=== PATIENT | male | born 1940 | race Caucasian/White ===

== ENCOUNTER → 2017-11-24 08:59 | Outpatient (CLI) | payer MEDICARE, SELFPAY ==
[2017-11-24 11:01] LABS: ALB/GLOB Ratio 1.1 RATIO (0.9-2.4); AST(SGOT) 65 U/L (15-37); Alanine Aminotransfer ALT/SGPT 63 U/L (16-61); Albumin, Serum 3.8 g/dL (3.2-5.0); Alkaline Phosphatase 43 U/L (45-117); Anion Gap 9 (5-15); BUN 23 mg/dL (7-18); BUN/Creat Ratio 16.4 RATIO (10-20); Calcium,Total 9.1 mg/dL (8.5-10.1); Chloride 106 mmol/L (98-107); EST Glomerular Filtration Rate 52 mL/min (>60); Est Glom Filt Rate - Afr Amer 63 mL/min (>60); Globulin 3.4 g/dL (2.2-4.2); Glucose 118 mg/dL (74-106); Potassium 3.9 mmol/L (3.5-5.1); Protein, Total 7.2 g/dL (6.4-8.2); Sodium Level 141 mmol/L (136-145); Uric Acid 7.3 mg/dL (3.5-7.2)
== END ==
PROVIDERS: Family Provider Family Medicine; PCP Family Medicine; Visit Provider Family Medicine
DX: N28.9 Disorder of kidney and ureter, unspecified (principal); M10.9 Gout, unspecified
CPT/HCPCS: 36415; 80053; 84550

== ENCOUNTER → 2017-12-26 14:32 | Outpatient (CLI) | payer MEDICARE, SELFPAY | PROVIDERS: Family Provider Family Medicine; PCP Family Medicine; Visit Provider Family Medicine | DX: M10.9 Gout, unspecified (principal) | CPT/HCPCS: 36415; 84550 ==

== ENCOUNTER → 2018-01-23 14:05 | Outpatient (CLI) | payer MEDICARE, SELFPAY ==
--- NOTE | 2018-01-23 14:05 | DT_ITS ---
This patient was seen during an EMR downtime January 16, 2018 - January 23, 2018. This patient may have a combination of paper and electronic documentation or all paper documentation. All documentation is viewable within the e-chart portion of [facility] for each patient visit.
[2018-01-23 16:05] LABS: ALB/GLOB Ratio 1.1 RATIO (0.9-2.4); AST(SGOT) 42 U/L (15-37); Alanine Aminotransfer ALT/SGPT 53 U/L (16-61); Albumin, Serum 3.8 g/dL (3.2-5.0); Alkaline Phosphatase 47 U/L (45-117); Anion Gap 8 (5-15); BUN 22 mg/dL (7-18); BUN/Creat Ratio 15.7 RATIO (10-20); CPK Total, Creatine Kinase 253 U/L (39-308); Calcium,Total 9.2 mg/dL (8.5-10.1); Chloride 108 mmol/L (98-107); EST Glomerular Filtration Rate 52 mL/min (>60); Est Glom Filt Rate - Afr Amer 63 mL/min (>60); Globulin 3.4 g/dL (2.2-4.2); Glucose 103 mg/dL (74-106); Protein, Total 7.2 g/dL (6.4-8.2); Sodium Level 141 mmol/L (136-145)
== END ==
PROVIDERS: Family Provider Family Medicine; PCP Family Medicine; Visit Provider Internal Medicine Cardiovascular Disease
DX: E78.2 Mixed hyperlipidemia (principal)
CPT/HCPCS: 36415; 80053; 82550

== ENCOUNTER 2018-07-20 12:00 | Outpatient (RCR) | payer MEDICARE, SELFPAY ==
--- NOTE | 2018-06-26 13:29 | HP.PTEVAL ---
Patient's Visit Information KEN ALFRED is a 77 year old M referred to Physical Therapy by LYNDSEY BAEZ with a diagnosis of LOW BACK PAIN. Date of Evaluation: 06/26/18 Physical Therapist: Casey Scott PT, - Visit Plan Frequency: 2x /Week Duration: 6 Weeks Plan: LUMBAR FLEXION,LE FLEXABLITY,DLS ,POSTURAL EX'S,MODALTIES - Subjective Subjective: This 77 by y/o male prsents to pnhysical therapy with low back pain. Patient has had lumbar pain Jun 09. Patient see [facility] for back and did x-rays of hip . Patient has symptoms have been worse several years . Synmptoms worse after sitting,driving to get up,walking,standing. Symptoms better with sitting and resting. C/O parathesia right lateral leg. Coughing/sneezing -. Bowel/bladder -. Patient sleeping okay at night. Patient symptoms affect QOL and function No prior prior treatmernt. SOCIAL: . VOCATION: retired - Pain Right Back Pain Intensity (Out of 10): 8 Pain Intensity Range: 10 - Objective POSTURE: mild foward posture. GAIT: mild foward posture antalgic gait right side. NEURO: lateral thigh parathesia/tingling,reflexes L3-4,L4-5,L5-S1. SYMMTRIES:align. MMT: quads/hams 4/5,hip flexion 4-/5,ankle 5/5. LUMBAR ROM: flexion mod loss ,extension severe loss,side glides min/mod loss. FEXABLITY: hams mod tight - Special Tests L/S Slump test left side: Negative L/S Slump test right side: Negative L/S Left Straight Leg Raise: Negative L/S Right Straight Leg Raise: Negative Lumbar Standing: Flexion - Mechanical Response: No effect Lumbar Standing: Flexion - Symptoms During Testing: No effect Lumbar Standing: Flexion - Symptoms After Testing: No effect Lumbar Standing: Extension - Mechanical Response: No effect Lumbar Standing: Extension - Symptoms During Testing: No effect Lumbar Standing: Extension - Symptoms After Testing: No effect Lumbar Standing: Right Side Glides - Mechanical Response: No effect Lumbar Standing: Right Side [place] - Symptoms During Testing: No effect Lumbar Standing: Right Side [place] - Symptoms After Testing: No effect Lumbar Standing: Left Side [place] - Mechanical Response: No effect Lumbar Standing: Left Side [place] - Symptoms During Testing: No effect Lumbar Standing: Left Side [place] - Symptoms After Testing: No effect R Hip Scour: Negative R Hip Christo - IT Band: Negative - Goals Goal 1:: Independant with HEP Goal Time Frame: 4-6 Weeks Goal 2:: Indeependant with posture/body Goal Time Frame: 4-6 Weeks Goal 3:: Decrease lumbar pain by 50% or greater to improved function with gait Goal Time Frame: 4-6 Weeks Goal 4:: Patient improve lumbar ROM for function of recovery Goal Time Frame: 4-6 Weeks Goal 5:: Patient improve KONSTANTIN back owestry by 5 points to improve QOL. Goal Time Frame: 4-6 Weeks - Rehabilitation Potential Physical Therapy Diagnosis: This patient has lumbar pain with decrease lumbar ROM ,pain weakness impairs function gait thus benifit from skilled PT . Rehabilitation Potential: Good - Anticipated Interventions Patient/Client Instruction: Educate patient on: Condition, Plan of Care For the Purpose of:: To decrease pain, To increase ROM, To improve muscle performance and motor function, To increase tolerance to activity/condition/position, To improve ability of physical actions for home/community/work/leisure, To improve health of tissue, To decrease soft tissue restriction, To increase flexibility/ROM, To improve ability to perform tasks related to life management Therapeutic Exercise to Include: Strength training, Body mechanics, Postural training, Flexibilty training, Dynamic Lumbar Stabilization For the Purpose of:: To decrease pain, To increase ROM, To improve muscle performance and motor function, To increase tolerance to activity/condition/position, To improve performance and independence with ADL's, To improve ability of physical actions for home/community/work/leisure, To improve health of tissue, To decrease soft tissue restriction, To increase flexibility/ROM, To improve ability to perform tasks related to life management TENS: Yes IF ES: Yes Thermo therapy (hot pack): Yes Ultrasound (thermal/non thermal): Yes For the Purpose of:: To decrease pain, To increase ROM, To improve nutrient delivery to tissue, To increase oxygenation perfusion, To improve health of tissue, To decrease soft tissue restriction Thank you for the opportunity to evaluate your patient. For Medicare and Medicare HMO plans, please review the plan of care and approve it. It will need to be FAXED BACK to us at [phone] for Medicare purposes. Please let me know if there are questions or concerns regarding this plan of care. Physician Signature: Date:
--- NOTE | 2018-11-16 09:54 | HP.PTDCNRP_ITS ---
HP - Discharge Summary (1) - Patient Information KEN ALFRED was seen in my office for initial evaluation on 06/26/18. The following Plan of Care was established for this patient: Initial Frequency: 2x /Week Initial Duration: 6 Weeks - Anticipated Interventions Patient/Client Instruction: Educate patient on: Condition, Plan of Care For the Purpose of:: To decrease pain, To increase ROM, To improve muscle perfo rmance and motor function, To increase tolerance to activity/condition/position, To improve ability of physical actions for home/community/work/leisure, To improve health of tissue, To decrease soft tissue restriction, To increase flexibility/ROM, To improve ability to perform tasks related to life management Therapeutic Exercise to Include: Strength training, Body mechanics, Postural training, Flexibilty training, Dynamic Lumbar Stabilization For the Purpose of:: To decrease pain, To increase ROM, To improve muscle performance and motor function, To increase tolerance to activity/condition/position, To improve performance and independence with ADL's, To improve ability of physical actions for home/community/work/leisure, To improve health of tissue, To decrease soft tissue restriction, To increase flexibility/ROM, To improve ability to perform tasks related to life management TENS: Yes IF ES: Yes Thermo therapy (hot pack): Yes Ultrasound (thermal/non thermal): Yes For the Purpose of:: To decrease pain, To increase ROM, To improve nutrient delivery to tissue, To increase oxygenation perfusion, To improve health of tissue, To decrease soft tissue restriction This patient was last seen in our office 07/20/18. Pertinent comments regarding their Physical therapy will appear below: Patient seen for PT for lumbar pain with tx focusing on lumbar traction ,DLS ,postural ex's. Patient had postive response with PT interventions but then had MRI. At this point I will be discontinuing this patient from physical therapy. I would be happy to see this patient again in the future if found appropriate by the physician. Thank you! Casey Scott, PT, Cert MDT, OCS
== END 2018-07-20 19:00 | disposition home or self-care (01) ==
LOC: PT 12:00
PROVIDERS: Family Provider Family Medicine; PCP Family Medicine
DX: M54.5 Low back pain (principal)
CPT/HCPCS: 97012; 97110; 97162

== ENCOUNTER → 2018-08-09 12:01 | Outpatient (CLI) | payer MEDICARE, SELFPAY ==
--- NOTE | 2018-08-09 12:35 | MRI_ITS ---
STUDY: MRI LUMBAR SPINE WITHOUT CONTRAST REASON FOR EXAM: Male, 78 years old. Right leg pain and hip pain. Radiculopathy. TECHNIQUE: Standardized fat and water weighted pulse sequences were obtained in the sagittal and axial planes. COMPARISON: X-ray March 25, 2014 FINDINGS: T12-L1: Normal endplates. Normal disc height, hydration and morphology. Normal bilateral facet joints. Normal central canal and bilateral lateral recesses. Normal bilateral intervertebral neural foramina. Normal lumbar lordosis. There is a mild levoscoliosis of the lumbar spine. Normal conus medullaris that terminates at the L1 level. There is no acute fracture. L1-2: Normal endplates. Normal disc height, hydration and morphology. Normal bilateral facet joints. Normal central canal and bilateral lateral recesses. Normal bilateral intervertebral neural foramina. L2-3: Disc bulge with mild spurring. Mild spurring of the bilateral facet joints. Normal central canal and bilateral lateral recesses. Normal bilateral intervertebral neural foramina. L3-4: Disc space narrowing. Disc bulge and spurring. Facet spurring and ligamentum flavum hypertrophy. Mild canal stenosis. Right greater than left foraminal narrowing L4-5: Disc space narrowing. Disc bulge and spurring with left foraminal disc protrusion, series 5 image 8/25. Facet spurring. Canal borderline in size. Left foraminal narrowing L5-S1: Disc space narrowing. Disc bulge and spurring. Facet spurring. Left foraminal narrowing. Normal visualized sacral ala. Normal visualized paraspinous soft tissue structures. MRI/Spine Lumbar (Routine) IMPRESSION: Multilevel degenerative changes, as described above. Electronically Signed: Guero Kelly MD at 23:39 EST , Service support ,
== END ==
PROVIDERS: Family Provider Family Medicine; PCP Family Medicine
DX: M54.16 Radiculopathy, lumbar region (principal)
CPT/HCPCS: 72148

== ENCOUNTER → 2018-09-18 09:51 | Outpatient (CLI) | payer MEDICARE, SELFPAY ==
[2018-09-18 12:42] LABS: Hematocrit 40.7 % (40-54); Hemoglobin 13.2 g/dl (13.0-16.5); Mean Corp Hgb Conc 32.4 g/gl (32-36); Mean Corpuscular Hgb 31.4 pg (27.0-32.0); Mean Corpuscular Volume 96.9 fL (80-94); Mean Platelet Vol. 9.8 fl (6.2-12.0); Platelet Count 234 K/mm3 (150-450); RBC Distribution Width CV 13.2 % (11.6-14.6); RBC Distribution Width SD 45.6 fl (35.1-43.9); White Blood Count 6.6 K/mm3 (4.4-11.0)
[2018-09-18 12:44] LABS: Scan Indicated on CBC? Y/N NO
[2018-09-18 13:10] LABS: ALB/GLOB Ratio 0.9 RATIO (0.9-2.4); AST(SGOT) 53 U/L (15-37); Alanine Aminotransfer ALT/SGPT 54 U/L (16-61); Albumin, Serum 3.6 g/dL (3.2-5.0); Alkaline Phosphatase 64 U/L (45-117); Anion Gap 8 (5-15); BUN 21 mg/dL (7-18); BUN/Creat Ratio 14.7 RATIO (10-20); Chloride 104 mmol/L (98-107); Cholesterol 127 mg/dL (200); Creatinine, Serum 1.43 mg/dL (0.70-1.30); EST Glomerular Filtration Rate 51 mL/min (>60); Est Glom Filt Rate - Afr Amer 62 mL/min (>60); Globulin 3.8 g/dL (2.2-4.2); Glucose 128 mg/dL (74-106); High Density Lipoprotein 34 mg/dL; Magnesium 2.1 mg/dL (1.6-2.6); Potassium 4.3 mmol/L (3.5-5.1); Protein, Total 7.4 g/dL (6.4-8.2); Sodium Level 139 mmol/L (136-145); Thyroid Stim Hormone (TSH) 3.35 uIU/mL (0.358-3.74); Triglycerides 180 mg/dL; Very Low Density Lipoprotein 36 mg/dL (5-40)
== END ==
PROVIDERS: Family Provider Family Medicine; PCP Family Medicine; Visit Provider Family Medicine
DX: I10 Essential (primary) hypertension (principal); M10.9 Gout, unspecified; R25.1 Tremor, unspecified; R13.10 Dysphagia, unspecified
CPT/HCPCS: 36415; 80053; 80061; 83735; 84443; 85027

== ENCOUNTER → 2018-10-23 14:23 | Outpatient (CLI) | payer MEDICARE, OTHER, SELFPAY ==
--- NOTE | 2018-10-23 14:47 | VDLE_ITS ---
Reason For Study: S/P lumbar surgery RIGHT LEFT GSV is normal. CFV is compressible, spontaneous, phasic, CFV is compressible, spontaneous, phasic, competent, and demonstrates normal competent and demonstrates normal augmentation. augmentation. FV is compressible, spontaneous, phasic, competent and demonstrates normal augmentation. POP V is compressible, spontaneous, phasic, competent and demonstrates normal augmentation. T/P Trunk is compressible. PTV is compressible. RT PerV is compressible. Procedure Exam performed in department. The study was technically difficult. A preliminary report was called and/or faxed to Dr. Malhotra @ [phone] @ 3:15 pm. Interpretation Summary Deep veins of the right lower extremity are patent and compressible segmentally. There is no evidence of right lower extremity deep vein thrombosis. Valvular competence appears intact within the proximal deep venous system on the right . The right greater saphenous vein appears patent and compressible segmentally. Ordering Physician: Davey Malhotra Referring Physician: García Trevino Performed By: Nadia Ortiz, JOHN, RVT
== END ==
PROVIDERS: Family Provider Family Medicine; PCP Family Medicine; Referring Provider Orthopaedic Surgery Orthopaedic Surgery of the Spine; Visit Provider Orthopaedic Surgery Orthopaedic Surgery of the Spine
DX: M79.604 Pain in right leg (principal); Z98.890 Other specified postprocedural states
CPT/HCPCS: 93971

== ENCOUNTER → 2018-10-25 12:34 | Outpatient (CLI) | payer MEDICARE, OTHER, SELFPAY ==
[2018-10-25 14:52] LABS: Absolute Neutrophil Count 3.7 X10^3/uL (2.0-7.7); Basophil# 0.04 X10^3/uL; Basophil% 0.6 % (0-1); Eosinophil# 0.22 X10^3/uL; Eosinophils% 3.2 % (0-5); Hematocrit 40.3 % (40-54); Lymphocyte % 30.6 % (19-41); Mean Corp Hgb Conc 32.3 g/gl (32-36); Mean Corpuscular Hgb 31.1 pg (27.0-32.0); Mean Corpuscular Volume 96.4 fL (80-94); Mean Platelet Vol. 9.8 fl (6.2-12.0); Monocyte# 0.74 X10^3/uL; Monocyte% 10.8 % (0-10); Neutrophil # 3.73 X10^3/uL (2.7-7.7); Neutrophil % 54.4 % (47-70); Platelet Count 203 K/mm3 (150-450); RBC Distribution Width CV 13.1 % (11.6-14.6); RBC Distribution Width SD 45.4 fl (35.1-43.9); Red Blood Count 4.18 M/mm3 (4.6-6.2); White Blood Count 6.9 K/mm3 (4.4-11.0)
[2018-10-25 14:56] LABS: POSITIVE COUNT NO; POSITIVE DIFFERENTIAL NO; POSITIVE MORPHOLOGY NO
[2018-10-25 15:11] LABS: ALB/GLOB Ratio 1.1 RATIO (0.9-2.4); AST(SGOT) 41 U/L (15-37); Alanine Aminotransfer ALT/SGPT 43 U/L (16-61); Albumin, Serum 3.9 g/dL (3.2-5.0); Alkaline Phosphatase 55 U/L (45-117); Anion Gap 7 (5-15); BUN 22 mg/dL (7-18); BUN/Creat Ratio 16.9 RATIO (10-20); Chloride 105 mmol/L (98-107); EST Glomerular Filtration Rate 57 mL/min (>60); Est Glom Filt Rate - Afr Amer 69 mL/min (>60); Globulin 3.4 g/dL (2.2-4.2); Glucose 108 mg/dL (74-106); Potassium 4.2 mmol/L (3.5-5.1); Protein, Total 7.3 g/dL (6.4-8.2); Sodium Level 141 mmol/L (136-145); Thyroid Stim Hormone (TSH) 2.46 uIU/mL (0.358-3.74)
== END ==
PROVIDERS: Family Provider Family Medicine; PCP Family Medicine; Referring Provider Family Medicine; Visit Provider Family Medicine
DX: R60.0 Localized edema (principal)
CPT/HCPCS: 36415; 80053; 84443; 85025

== ENCOUNTER → 2018-10-27 16:24 | Outpatient (CLI) | payer MEDICARE, OTHER, SELFPAY ==
--- NOTE | 2018-10-27 16:27 | RAD_ITS ---
STUDY: X-RAY - RIGHT KNEE REASON FOR EXAM: Male, 78 years old. Right leg edema TECHNIQUE: 3 view(s) of the knee. COMPARISON: None. FINDINGS: Normal visualized distal femur. Normal visualized proximal tibia and fibula. Normal proximal tibiofibular articulation. There is mild joint space narrowing of the medial knee compartment. Normal lateral femorotibial compartment. Normal patellofemoral articulation. The soft tissue structures are unremarkable. RAD/Knee 3 Views IMPRESSION: Mild joint space narrowing of the medial knee compartment. Electronically Signed: Joel Grajeda MD at 23:58 EDT , Service support ,
== END ==
PROVIDERS: Family Provider Family Medicine; PCP Family Medicine; Referring Provider Family Medicine; Visit Provider Family Medicine
DX: R60.0 Localized edema (principal)
CPT/HCPCS: 73562

== ENCOUNTER → 2018-11-06 05:37 | Outpatient (CLI) | payer MEDICARE, OTHER, SELFPAY ==
--- NOTE | 2018-11-06 06:14 | CT_ITS ---
STUDY: CT RIGHT LOWER EXTREMITY WITH CONTRAST REASON FOR EXAM: Male, 78 years old. Swelling of the right leg for several months. No history of DVT or circulatory issues. RADIATION DOSAGE (If Supplied By Facility): CTDIvol = ( 16.75 ) mGy, DLP = ( 1646.24 ) mGycm TECHNIQUE: Transaxial CT imaging of the right lower extremity was performed post contrast administration. The examination was performed with intravenous administration of Isovue 300 100 IV. Sagittal and coronal images were reconstructed. Individualized dose optimization techniques were used for this CT. COMPARISON: Right knee, October 27, 2018. FINDINGS: The visualized right pelvis appears intact and without evidence of fracture or destructive pathology. There is mild narrowing of the hip joint. The femur is intact without abnormality. There are degenerative changes of the knee. There is a tiny sclerotic focus in the posterior femoral condyle. Normal tibia and fibula. The ankle is intact. Normal visualized talus calcaneus and tarsals. The subtalar and tarsal articulations are grossly normal. The musculature of the hip side calf and hindfoot appear grossly normal. The subcutaneous tissues are grossly normal. There is atherosclerotic changes of the common femoral artery without stenosis. There is atherosclerotic changes of the superficial femoral artery without stenosis. Atherosclerotic changes without stenosis continuing to the popliteal artery. There is atherosclerotic changes of the calf vessels most marked in the tibioperitoneal trunk however no significant stenosis is noted. There is marked decrease in size of the anterior tibial artery in the mid leg although it can be followed into the foot. The posterior tibial and peroneal arteries are patent into the foot. There is no obvious venous abnormalities or varices. There is no enhancing abnormality. CT/Extremity Lower WITH Contrast IMPRESSION: 1. Degenerative changes of the hip knee and hindfoot without evidence of fracture, dislocation or destructive osseous pathology. 2. Atherosclerotic changes of the arterial system of the right lower extremity without significant stenosis. There is mild narrowing of the distal anterior tibial artery, which remains patent. 3. No evidence of muscular or soft tissue abnormality. Electronically Signed: Volodymyr Sierra DO at 8:54 EDT Tel [phone], Service support ,
== END ==
PROVIDERS: Family Provider Family Medicine; PCP Family Medicine; Referring Provider Nurse Practitioner Adult Health; Visit Provider Nurse Practitioner Adult Health
DX: M79.89 Other specified soft tissue disorders (principal)
CPT/HCPCS: 73701; Q9967

== ENCOUNTER → 2018-12-08 | Outpatient (CLI) | payer MEDICARE, OTHER, SELFPAY ==
--- NOTE | 2018-12-08 08:36 | BI_ITS ---
MAMMOGRAPHY - BILATERAL DIAGNOSTIC REASON FOR EXAM: Male, 78 years old. Lump PERTINENT HISTORY: Non-contributory. TECHNIQUE: Digital examination. Mediolateral oblique (MLO) and craniocaudad (CC) views of both breasts were obtained. CAD: CAD was performed on this study. COMPARISON: 2011 FINDINGS: Breast Composition: The breasts are almost entirely fatty. There are no dominant masses or suspicious calcifications. However, patient complains of a palpable left breast lump. Tractor Crane Engineer also notes this area and further evaluation of the palpable lump with ultrasound is recommended. No other significant abnormalities are identified. BI/DIAG MAMM W/CAD, BILAT IMPRESSION: Further ultrasonographic evaluation recommended, as described above. Recall Side: Left Breast ASSESSMENT CATEGORY: BIRADS Category 0: Incomplete. Need additional imaging evaluation. A letter regarding these results will be sent to the patient by the facility within 30 days. FOLLOW UP RECOMMENDATION: Ultrasound Recommended. (I) Approximately 10% of breast cancers are not detected by mammography. A normal mammogram should not delay biopsy of a clinically suspicious abnormality. Electronically Signed: Sarmad Grewal MD at 10:50 EDT , Service support ,
--- NOTE | 2018-12-08 08:36 | US_ITS ---
STUDY: ULTRASOUND BREAST - LEFT REASON FOR EXAM: Male, 78 years old. Palpable lump TECHNIQUE: Axial and longitudinal images of the LEFT breast were performed with a high resolution ultrasound transducer. COMPARISON: None. FINDINGS: LEFT Breast: There is a poorly defined hypoechoic nonvascular area in the retroareolar region of the left breast corresponding to the palpable lump. It measures 1.5 x 2.5 cm. Findings are suggestive of a hematoma, since it corresponds to patient's recent site of trauma. Short-term follow-up however is recommended to assure complete resolution and to ensure no underlying other lesion is present. US/Breast Limited Unilateral IMPRESSION: Poorly defined hypoechoic 1.5 x 2.5 cm retroareolar hematoma likely present. Short-term follow-up recommended to assure resolution ASSESSMENT CATEGORY: BIRADS Category 3: Probably Benign - Short-Interval Follow-up Suggested. A letter regarding these results will be sent to the patient by the facility within 30 days. Electronically Signed: Sarmad Grewal MD at 11:06 EDT , Service support ,
== END | disposition home or self-care (01) ==
LOC: OPBI 08:31
PROVIDERS: Family Provider Family Medicine; PCP Family Medicine; Referring Provider Family Medicine; Visit Provider Family Medicine
DX: N64.4 Mastodynia (principal)
CPT/HCPCS: 76642; 77062; 77066; G0279

== ENCOUNTER → 2019-01-16 | Outpatient (CLI) | payer MEDICARE, OTHER, SELFPAY ==
--- NOTE | 2019-01-16 10:27 | US_ITS ---
STUDY: ULTRASOUND BREAST - LEFT REASON FOR EXAM: Male, 78 years old. Palpable lump left breast. History of prior trauma to the left breast. TECHNIQUE: Axial and longitudinal images of the LEFT breast were performed with a high resolution ultrasound transducer. COMPARISON: Comparison is made with prior mammogram dated December 08, 2018 and prior ultrasound of the left breast dated December 08, 2018. FINDINGS: LEFT Breast: Once again, there is a poorly defined hypoechoic nonvascular area in the retroareolar region of the left breast. This presently measures 1.7 cm x 2.1 cm x 0.8 cm. This is unchanged. A repeat sonogram in 3 months is recommended. US/Breast Limited Unilateral IMPRESSION: Since prior study, there has been mild decrease in size of the retroareolar hypoechoic nonvascular nodular density. A repeat sonogram in 3 months is recommended. ASSESSMENT CATEGORY: BIRADS Category 3: Probably Benign - Short-Interval Follow-up Suggested. A letter regarding these results will be sent to the patient by the facility within 30 days. Electronically Signed: Luis Fontaine, at 12:35 EDT , Service support ,
== END | disposition home or self-care (01) ==
LOC: OPUS 10:25
PROVIDERS: Family Provider Family Medicine; PCP Family Medicine; Referring Provider Family Medicine; Visit Provider Family Medicine
DX: N63.21 Unspecified lump in the left breast, upper outer quadrant (principal)
CPT/HCPCS: 76642

== ENCOUNTER → 2019-03-20 | Outpatient (CLI) | payer MEDICARE, OTHER, SELFPAY ==
[2019-03-20 15:44] LABS: Absolute Neutrophil Count 3.7 X10^3/uL (2.0-7.7); Basophil# 0.05 X10^3/uL; Basophil% 0.9 % (0-1); Eosinophil# 0.13 X10^3/uL; Eosinophils% 2.3 % (0-5); Hematocrit 37.7 % (40-54); Hemoglobin 12.6 g/dL (13.0-16.5); Lymphocyte % 21.2 % (19-41); Mean Corp Hgb Conc 33.4 g/dL (32-36); Mean Corpuscular Hgb 31.8 pg (27.0-32.0); Mean Corpuscular Volume 95.2 fL (80-94); Monocyte# 0.56 X10^3/uL; Monocyte% 9.9 % (0-10); NRBC Flagged by Analyzer 0 % (0-5); Neutrophil # 3.69 X10^3/uL (2.7-7.7); Neutrophil % 65.3 % (47-70); Platelet Count 180 K/mm3 (150-450); RBC Distribution Width SD 45.1 fl (35.1-43.9); Red Blood Count 3.96 M/mm3 (4.6-6.2); White Blood Count 5.7 K/mm3 (4.4-11.0)
[2019-03-20 16:06] LABS: ALB/GLOB Ratio 1.1 RATIO (0.9-2.4); AST(SGOT) 64 U/L (15-37); Alanine Aminotransfer ALT/SGPT 63 U/L (16-61); Albumin, Serum 3.8 g/dL (3.2-5.0); Alkaline Phosphatase 55 U/L (45-117); Anion Gap 8 (5-15); BUN 18 mg/dL (7-18); BUN/Creat Ratio 12.9 RATIO (10-20); Calcium,Total 9.1 mg/dL (8.5-10.1); Chloride 105 mmol/L (98-107); Creatinine, Serum 1.39 mg/dL (0.70-1.30); EST Glomerular Filtration Rate 53 mL/min (>60); Est Glom Filt Rate - Afr Amer 64 mL/min (>60); Ferritin 900 ng/mL (26-388); Globulin 3.4 g/dL (2.2-4.2); Glucose 103 mg/dL (74-106); Iron 88 ug/dL (65-175); Magnesium 2.1 mg/dL (1.6-2.6); Potassium 4.2 mmol/L (3.5-5.1); Protein, Total 7.2 g/dL (6.4-8.2); Sodium Level 141 mmol/L (136-145); Thyroid Stim Hormone (TSH) 2.67 uIU/mL (0.358-3.74)
[2019-03-20 16:07] LABS: Vitamin B12 468 pg/mL (211-911); Vitamin D,25 Hydroxy 21.2 ng/mL (29.95-100.01)
[2019-03-20 16:08] LABS: Erythrocyte Sedimentation Rate 10 mm/hr (0-20)
== END | disposition home or self-care (01) ==
LOC: MFPLAB 14:18
PROVIDERS: Family Provider Family Medicine; PCP Family Medicine; Referring Provider Family Medicine; Visit Provider Family Medicine
DX: J31.0 Chronic rhinitis (principal); R25.2 Cramp and spasm; R53.83 Other fatigue
CPT/HCPCS: 36415; 80053; 82306; 82607; 82728; 83540; 83735; 84443; 85025; 85652

== ENCOUNTER → 2019-03-28 | Outpatient (CLI) | payer MEDICARE, OTHER, SELFPAY ==
--- NOTE | 2019-03-28 14:54 | MRI_ITS ---
We are attempting to reach an attending provider to discuss findings. An addendum with communication details will be sent when the communication is complete. STUDY: MRI BRAIN WITHOUT CONTRAST REASON FOR EXAM: Male, 78 years old. Tremors TECHNIQUE: Standardized multiplanar fat and water weighted pulse sequences were obtained. COMPARISON: None. FINDINGS: Moderate atrophy and mild periventricular white matter ischemic changes without mass effect or restricted diffusion. Normal bilateral basal ganglia. Normal thalami. There is no extra-axial fluid accumulation. Normal flow voids within the major intracranial circulation suggesting patency by spin echo criteria. There is a heterogeneous sellar mass measuring 1.2 x 1.07 x 2.09 cm possibly involving the, infundibular stalk, and encroaching upon the optic chiasm.. Normal tectal plate and pineal gland. Normal midbrain, marisa and medulla. Chronic ischemic changes in left cerebellar hemisphere. Normal basal cisterns. Normal bilateral temporal bones. Normal bilateral internal auditory canals. No demonstrated orbital abnormality, within the constraints of a routine brain study. There is mild mucosal thickening of the ethmoid air cells. Normal calvarium and skull base. Normal visualized soft tissue structures. Normal visualized upper cervical spine. MRI/Brain without Contrast IMPRESSION: Mild periventricular white matter ischemic change without evidence for acute infarct. Chronic ischemic changes in left cerebellum Heterogeneous sellar mass most likely representing pituitary adenoma. Recommend dedicated study of the sella with and without contrast for further evaluation Electronically Signed: Martín Jonas MD at 16:38 EDT , Service support ,
== END | disposition home or self-care (01) ==
LOC: MRI 14:49
PROVIDERS: Family Provider Family Medicine; PCP Family Medicine; Referring Provider Family Medicine; Visit Provider Family Medicine
DX: R25.1 Tremor, unspecified (principal)
CPT/HCPCS: 70551

== ENCOUNTER → 2019-04-09 | Outpatient (CLI) | payer MEDICARE, OTHER, SELFPAY ==
--- NOTE | 2019-04-09 12:52 | MRI_ITS ---
STUDY: MRI BRAIN WITH AND WITHOUT CONTRAST (ATTENTION PITUITARY GLAND) REASON FOR EXAM: Male, 78 years old. Pituitary mass. TECHNIQUE: Standardized multiplanar fat and water weighted pulse sequences were obtained. 20 IV Dotarem was administered for the contrast portion of the examination. COMPARISON: None. FINDINGS: Enlarged right-sided pituitary mass with ill-defined rim enhancement causing displacement of the pituitary stalk to the left of midline. There is mild suprasellar extension and it is touching the left undersurface of the optic chiasm. This measures 1.5 x 1.4 x 1.7 cm. This is consistent with pituitary microadenoma. Normal optic chiasm and hypothalamus. There are no other additional findings or changes.. 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 The suprasellar extension is midline but is tilted towards the left side. This suprasellar component of the mass touches the left undersurface of the optic chiasm rather than the right side. Electronically Signed: Tj Barcenas MD at 14:24 EDT , Service support ,
== END | disposition home or self-care (01) ==
LOC: MRI 12:40
PROVIDERS: Family Provider Family Medicine; PCP Family Medicine; Referring Provider Family Medicine; Visit Provider Family Medicine
DX: R93.89 Abnormal findings on diagnostic imaging of other specified body structures (principal)
CPT/HCPCS: 70553; A9575

== ENCOUNTER → 2019-04-19 | Outpatient (CLI) | payer MEDICARE, OTHER, SELFPAY ==
--- NOTE | 2019-04-19 10:48 | US_ITS ---
STUDY: ULTRASOUND BREAST - LEFT REASON FOR EXAM: Male, 78 years old. Pain in the left breast. TECHNIQUE: Axial and longitudinal images of the LEFT breast were performed with a high resolution ultrasound transducer. COMPARISON: Comparison is made with prior ultrasound of the breasts dated January 16, 2019. FINDINGS: LEFT Breast: There is a persistent 1.4 cm x 2.3 cm x 1.1 cm irregular hypoechoic nodular density. This is essentially unchanged. A biopsy is recommended. US/Breast Limited Unilateral IMPRESSION: Persistent 1.4 cm x 2.3 cm x 1.1 cm hypoechoic irregular density. Correlation with biopsy recommended. ASSESSMENT CATEGORY: BIRADS Category 4: Suspicious - Biopsy Should Be Considered. A letter regarding these results will be sent to the patient by the facility within 30 days. Electronically Signed: Luis Fontaine, at 13:14 EDT , Service support ,
== END | disposition home or self-care (01) ==
LOC: OPUS 10:47
PROVIDERS: Family Provider Family Medicine; PCP Family Medicine; Referring Provider Family Medicine; Visit Provider Family Medicine
DX: N64.4 Mastodynia (principal)
CPT/HCPCS: 76642

== ENCOUNTER → 2019-04-20 | Outpatient (CLI) | payer MEDICARE, OTHER, SELFPAY ==
[2019-04-20 15:14] LABS: Free T3 2.1 pg/mL (2.18-3.98); Luteinizing Hormone 2.1 mIU/mL; T4 Free Direct 0.76 ng/dL (0.76-1.46); Thyroid Stim Hormone (TSH) 2.17 uIU/mL (0.358-3.74)
[2019-04-23 16:07] LABS: Testosterone, % Free 1.88 % (1.50-4.20); Testosterone, Free 0.79 ng/dL (5.00-21.00)
[2019-04-24 09:59] LABS: Adrenocorticotropic Hormone 24.3 pg/mL (7.2-63.3); Testosterone, Total 42 ng/dL (264-916); Thyroid Peroxidase AB 9 IU/mL (0-34)
== END | disposition home or self-care (01) ==
PROVIDERS: Family Provider Family Medicine; PCP Family Medicine
DX: D35.2 Benign neoplasm of pituitary gland (principal)
CPT/HCPCS: 36415; 82024; 82533; 83001; 83002; 84146; 84402; 84403; 84439; 84443; 84481; 86376

== ENCOUNTER → 2019-04-28 | Outpatient (CLI) | payer MEDICARE, OTHER, SELFPAY ==
--- NOTE | 2019-04-28 08:00 | BRBX_PTH ---
PATIENT: KEN ALFRED LOC: [facility] U#:[id number] AGE/SX: 78/M ROOM: RE04/28/[address]: Dr. Valentino Huynh MD : [id number] BED: DIS: 04/28/2019 SPEC #: [id number] RECD: 04/30/19 11:04 STATUS: KHURRAM KIMANI #: [id number] MAXIMINO: 04/28/19 08:[address]: Valentino Huynh DEPT: SURGICAL PATHOLOGY RECD BY: Sal Reardon ENTERED: 04/30/19 11:05 SP TYPE: BREAST BX OT DR: Dr. García Trevino MD Tissues: Left breast, NOS Procedures: Surgery Specimen Level IV HEADER OPERATION: Ultrasound-guided left breast needle core biopsy PRE-OP DIAGNOSIS: Left breast lump N63.20 TISSUE SUBMITTED: Left breast needle core biopsy tissue ISCHEMIC TIME: <1 minute FIXATION TIME: 60.5 hours MICROSCOPIC DIAGNOSIS Left breast, ultrasound-guided core biopsy: Consistent with gynecomastia. AM:sammi 05/01/19 MICROSCOPIC DESCRIPTION Slides are reviewed. GROSS DESCRIPTION Received in fixative is one container labeled with the patient's name and designated left breast biopsy. The specimen consists of multiple elongated fragments of patel-yellow fibroadipose tissue that in aggregate measure 0.7 x 0.2 x 0.1 cm. The entire specimen is submitted in one cassette. / SJ:sammi 04/30/19 TC:5 CPT: 29156
[2019-04-28 08:24] VITALS: BMI 30.8
== END | disposition home or self-care (01) ==
LOC: LABSPEC 09:30
PROVIDERS: Family Provider Family Medicine; PCP Family Medicine; Referring Provider Surgery; Visit Provider Surgery
DX: N63.20 Unspecified lump in the left breast, unspecified quadrant (principal)
CPT/HCPCS: 88305

== ENCOUNTER 2019-05-06 18:12 | Emergency (ER) | payer MEDICARE, OTHER, SELFPAY ==
[2019-04-28 08:24] VITALS: BMI 30.8
[2019-05-06 18:12] VITALS: BP 160/75; PULSE 54; RESP 16
[2019-05-06 18:13] VITALS: BP 160/75; PULSE 52; RESP 16; TEMP 36.2; O2SAT 95; BMI 31.6
--- NOTE | 2019-05-06 18:33 | CT_ITS ---
We are attempting to reach an attending provider to discuss findings. An addendum with communication details will be sent when the communication is complete. STUDY: CT LUMBAR SPINE WITHOUT CONTRAST REASON FOR EXAM: Male, 78 years old. Low back pain. Injury. RADIATION DOSAGE (If Supplied By Facility): CTDIvol = ( 26.25 ) mGy, DLP = ( 710.05 ) mGycm TECHNIQUE: Axial multidetector CT scan of the lumbar spine. Coronal and sagittal reformatted images. Individualized dose optimization techniques were used for this CT. COMPARISON: MRI dated August 09, 2018. FINDINGS: Acute unstable L1 burst fracture with approximately 8 mm retropulsion asymmetric to the right (axial image 16 series 2 and sagittal image 47 series 602). Moderate central canal narrowing posterior to the L1 vertebral body with lateral recess involvement. Fracture line propagates into the left posterior lamina (axial image 18 series 2). Approximately 70% vertebral body height loss. No dislocation. No bone destruction. Osteopenia. Lumbar lordosis preserved. Patient slightly tilted to the left without scoliosis. Minimal multilevel endplate spondylosis. Mild multilevel facet joint arthrosis predominating at L3-4 through L5-S1. Multilevel neural foraminal narrowing predominating at the lower lumbar spine. Minimal grade 1 spondylolisthesis at L4-5 and L5-S1. Small anterior osteophytes. Soft tissue swelling at the region of fracture. Vascular calcifications. Minimal paraspinal muscle atrophy. Visualized sacrum and pelvis intact. Bilateral sacroiliac joint arthrosis. Visualized ribs intact. CT/Spine Lumbar without Contrast IMPRESSION: Acute unstable L1 burst fracture with moderate retropulsion/canal narrowing (surgical consultation and MRI recommended) Additional nonemergent findings, as above Electronically Signed: Sigifredo Rdz DO at 19:30 EDT Tel , Service support ,
[2019-05-06] MEDS: Ondansetron 4 MG/2 ML Vial IV ×2 (18:49→20:21)
[2019-05-06] MEDS: 0.9% Normal Saline 1,000 ML 150 ML IV (18:50)
[2019-05-06] MEDS: Morphine 4 MG/ML Syringe IV ×2 (18:50→20:22)
[2019-05-06 18:51] LABS: Absolute Lymphocyte Count 0.91 X10^3/uL (0.83-4.51); Absolute Neutrophil Count 6.9 X10^3/uL (2.0-7.7); Basophil# 0.04 X10^3/uL; Basophil% 0.5 % (0-1); Eosinophil# 0.07 X10^3/uL; Eosinophils% 0.8 % (0-5); Hematocrit 38.3 % (40-54); Hemoglobin 13.1 g/dL (13.0-16.5); Lymphocyte # 0.91 X10^3/ul (4.0); Lymphocyte % 10.6 % (19-41); Mean Corp Hgb Conc 34.2 g/dL (32-36); Mean Corpuscular Hgb 32.4 pg (27.0-32.0); Mean Corpuscular Volume 94.8 fL (80-94); Mean Platelet Vol. 9.6 fl (6.2-12.0); Monocyte# 0.64 X10^3/uL; Monocyte% 7.5 % (0-10); NRBC Flagged by Analyzer 0 % (0-5); Neutrophil # 6.88 X10^3/uL (2.7-7.7); Neutrophil % 80.1 % (47-70); Platelet Count 151 K/mm3 (150-450); RBC Distribution Width CV 12.4 % (11.6-14.6); RBC Distribution Width SD 43.6 fl (35.1-43.9); Red Blood Count 4.04 M/mm3 (4.6-6.2); White Blood Count 8.6 K/mm3 (4.4-11.0)
[2019-05-06 19:01] LABS: Anion Gap 11 (5-15); BUN 15 mg/dL (7-18); Chloride 104 mmol/L (98-107); Creatinine, Serum 1.25 mg/dL (0.70-1.30); EST Glomerular Filtration Rate 59 mL/min (>60); Est Glom Filt Rate - Afr Amer 72 mL/min (>60); Glucose 146 mg/dL (74-106); Potassium 4.4 mmol/L (3.5-5.1); Sodium Level 141 mmol/L (136-145)
[2019-05-06 19:30] VITALS: BP 146/63; PULSE 53; RESP 16; O2SAT 95
--- NOTE | 2019-05-06 19:55 | ED.VISSUMM ---
- ER Visit Summary Date of Service: 05/06/19 Chief Complaint: [Back injury History of present illness: The patient is a 78-year-old male who presents to the emergency department with a back injury that occurred around 10:30 AM. Patient states that he was using a Rototiller when it started moving away from and he was trying to hold onto and then was thrown to the side. Patient states that he had a did a flip and landed on the ground.] Patient denies striking his head or loss consciousness. He denies any neck pain. Denies any chest pain or abdominal pain. Patient now complaining of severe pain in his low back. Patient has history of coronary artery disease and prior back surgery. Patient is on aspirin daily but no other blood thinners. Physical Examination: [HEENT-PERRLA, EOMI. Cranial nerves II through XII grossly intact. TMs clear. Mucous membranes moist. No adenopathy. No external evidence of trauma to his head. Patient has no C-spine terms of palpation. Patient has normal active range of motion is painless. Cardiovascular-regular rate and rhythm without murmur or ectopy Lungs-clear to auscultation, chest wall stable without crepitus or subcu emphysema Abdomen-normoactive bowel sounds, soft, nontender, no rebound or rigidity, no peritoneal signs. Back exam-patient has tenderness that is point tender over L1. Negative straight leg raises. Deep tendon reflexes are plus 2 out of 4 bilaterally at the patella and Achilles. Patient has normal 5 extension. Patient has normal sensation to light touch. Extremities-intact ?4, normal range of motion, normal pulses, atraumatic] Test Results: [CBC with differential white of 8.6, hemoglobin 13, hematocrit 38, plates 151. Chemistries unremarkable. CT scan of the lumbar spine obtained showed a L1 burst fracture that is unstable. Patient had retropulsion into the spinal canal of 8 mm.] Patient was medicated with morphine and Zofran. Emergency Department Course and Treatment: [Patient case discussed with [facility] as this is where the patient would like to go given that he has had prior surgery at [facility] on his back. Patient was accepted by the trauma surgeon to their facility.] Treatment Plan: [Transfer to [facility]] Disposition: [Transfer] Impression: [L1 burst fracture] This note was generated with [employer] dictation software. It may contain incorrect words, spelling, and punctuation that were not noted in review of the chart prior to signing ED Disposition - Plan for ED Patient: Referrals: Gianluca Trevino MD [Primary Care Provider] -
[2019-05-06 20:14] VITALS: BP 152/72; PULSE 55; RESP 18; O2SAT 98
== END 2019-05-06 20:37 | disposition home or self-care (01) ==
LOC: ED 18:33
PROVIDERS: Emergency Provider Emergency Medicine; Family Provider Family Medicine; PCP Family Medicine
DX: S32.012A Unstable burst fracture of first lumbar vertebra, initial encounter for closed fracture (principal); I25.10 Atherosclerotic heart disease of native coronary artery without angina pectoris; Z79.82 Long term (current) use of aspirin; W18.39XA Other fall on same level, initial encounter; Y93.H9 Activity, other involving exterior property and land maintenance, building and construction; Y92.007 Garden or yard of unspecified non-institutional (private) residence as the place of occurrence of the external cause; Y99.8 Other external cause status
CPT/HCPCS: 72131; 80048; 85025; 96360; 96361; 99284; J7030; A4216; J2405

== ENCOUNTER 2019-08-13 12:05 | Emergency (ER) | payer MEDICARE, SELFPAY ==
[2019-08-13 12:06] VITALS: BP 121/66; PULSE 78; RESP 16; TEMP 36.4; O2SAT 97; BMI 29.1
--- NOTE | 2019-08-13 13:21 | EKG12_ITS ---
Test Reason : WEAKNESS Blood Pressure : / mmHG Vent. Rate : 070 BPM Atrial Rate : 070 BPM P-R Int : 208 ms QRS Dur : 110 ms QT Int : 420 ms P-R-T Axes : 030 006 -31 degrees QTc Int : 453 ms Normal sinus rhythm T wave abnormality, consider anterolateral ischemia Abnormal ECG Confirmed by ANNIE BOSTON, LYNDSAY ([id number]), scientific publications editor MINDI MARIN ([id number]) on 08/16/2019 11:14:44 AM Referred By: KIKA Confirmed By:LYNDSAY VALENCIA MD
--- NOTE | 2019-08-13 13:21 | CT_ITS ---
STUDY: CT BRAIN WITHOUT CONTRAST REASON FOR EXAM: Male, 79 years old. 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 DECREASED APPETITE, NAUSEA, AND HEADACHES OVER THE LAST WEEK. RADIATION DOSAGE (If Supplied By Facility): CTDIvol = ( 60.81 ) mGy, DLP = ( 1067.08 ) mGycm TECHNIQUE: Transaxial CT imaging of the brain was performed without administration of intravenous contrast material. Individualized dose optimization techniques were used for this CT. COMPARISON: No relevant priors. FINDINGS: Normal soft tissue structures. Normal calvarium. Subacute resolving bilateral subdural hematomas noted. Maximum thickness on the left is 4 mm on the right is 3 mm. There are a few bubbles of pneumocephalus noted, likely sequela from previous surgery on 07/24. There is mild cerebral atrophy with widening of the extra-axial spaces and ventricular dilatation. There are areas of decreased attenuation within the white matter tracts of the supratentorial brain, consistent with microvascular disease changes. Normal basal ganglia and thalami. Normal brainstem. Normal cerebellum. There is no intracranial hemorrhage. There are no findings of an acute ischemic infarction. Normal visualized paranasal sinuses. CT/Brain/Head without Contrast IMPRESSION: Chronic involutional changes of the brain. No acute hemorrhage Resolving subacute bilateral subdural hematomas without midline shift or mass effect Bubbles of pneumocephalus likely sequela from previous surgery Electronically Signed: Sarmad Grewal MD at 15:57 EST , Service support ,
[2019-08-13] MEDS: 0.9% Normal Saline 1,000 ML 1000 ML IV (14:52)
[2019-08-13 14:53] LABS: Absolute Lymphocyte Count 1.15 X10^3/uL (0.83-4.51); Absolute Neutrophil Count 2.2 X10^3/uL (2.0-7.7); Basophil# 0.05 X10^3/uL; Basophil% 1.1 % (0-1); Eosinophils% 15.4 % (0-5); Hematocrit 34.7 % (40-54); Lymphocyte # 1.15 X10^3/ul (4.0); Lymphocyte % 25.3 % (19-41); Mean Corp Hgb Conc 34.6 g/dL (32-36); Mean Corpuscular Hgb 31.8 pg (27.0-32.0); Mean Platelet Vol. 8.8 fl (6.2-12.0); Monocyte# 0.44 X10^3/uL; Monocyte% 9.7 % (0-10); NRBC Flagged by Analyzer 0 % (0-5); Neutrophil # 2.18 X10^3/uL (2.7-7.7); Neutrophil % 48.1 % (47-70); Platelet Count 185 K/mm3 (150-450); RBC Distribution Width CV 12.6 % (11.6-14.6); RBC Distribution Width SD 41.9 fl (35.1-43.9); Red Blood Count 3.77 M/mm3 (4.6-6.2); White Blood Count 4.5 K/mm3 (4.4-11.0)
[2019-08-13 15:07] VITALS: BP 123/64; PULSE 66; RESP 19; O2SAT 94
[2019-08-13 15:12] LABS: ALB/GLOB Ratio 1.1 RATIO (0.9-2.4); AST(SGOT) 52 U/L (15-37); Alanine Aminotransfer ALT/SGPT 55 U/L (16-61); Albumin, Serum 3.5 g/dL (3.2-5.0); Alkaline Phosphatase 76 U/L (45-117); Anion Gap 9 (5-15); BUN 6 mg/dL (7-18); BUN/Creat Ratio 5.1 RATIO (10-20); Calcium,Total 9.1 mg/dL (8.5-10.1); Chloride 98 mmol/L (98-107); Creatinine, Serum 1.18 mg/dL (0.70-1.30); EST Glomerular Filtration Rate 63 mL/min (>60); Est Glom Filt Rate - Afr Amer 77 mL/min (>60); Estimated Creatinine Clearance 53.27 ml/min; Globulin 3.2 g/dL (2.2-4.2); Glucose 119 mg/dL (74-106); Potassium 3.6 mmol/L (3.5-5.1); Protein, Total 6.7 g/dL (6.4-8.2); Sodium Level 135 mmol/L (136-145)
[2019-08-13 16:34] LABS: Bacteria 0 SEEN /hpf (None Seen); Mucous, Urine 0 SEEN /hpf (<or=2+); Red Blood Cells-Urine 0 SEEN /hpf (0-5); Squamous Epithelial Cells - UA 0 SEEN /hpf (0-5); White Blood Cells 0 SEEN /hpf (0-5)
[2019-08-13 17:04] VITALS: BP 143/67; PULSE 69; RESP 15; O2SAT 96
[2019-08-13 17:08] LABS: Color, Urine Yellow (Yellow); Glucose, Dipstick Normal (Normal); Ketone-Dipstick 5 mg/dl (Negative); Leukocyte Esterase-Dipstick Negative /ul (Negative); Nitrite-Dipstick Negative (Negative); Occult Blood-Urine Negative /ul (Negative); Protein-Dipstick 30 mg/dl (Negative); Specific Gravity, Urine 1.025 (1.002-1.030); Urine Clarity Sl. Cloudy (Clear); Urine Urobilinogen 4 mg/dl (Normal)
[2019-08-13 17:10] LABS: Urine Bilirubin Dipstick 1 mg/dL (Negative)
[2019-08-13 17:18] LABS: Amorphous Sediment 1+
[2019-08-13 18:09] VITALS: BP 146/73; PULSE 72; RESP 19; TEMP 35
[2019-08-13] MEDS: proMETHazine 25 MG/ML Syringe 12.5 MG IV (18:27)
--- NOTE | 2019-08-25 08:22 | ED.VISSUMM ---
- ER Visit Summary Date of Service: 08/25/19 Chief Complaint: [Weakness] History of Present Illness: The patient is a 79 M [presents the emergency department with complaint of feeling weak today. 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 Patient complaining of decreased appetite and he is lost about 25 pounds in the last 3 weeks. He complains of headaches. Patient feels off balance when he walks. Patient states he has felt this way since the surgery. Patient denies any fevers. He has had some nausea and occasional diarrhea. Patient has history of coronary artery disease. Patient has history of cardiac stent and prior back surgery. He has no known drug allergies.] Physical Examination: [HEENT-PERRLA, EOMI. Cranial nerves II through XII grossly intact. TMs clear. Mucous membranes moist. No adenopathy. Cardiovascular-regular rate and rhythm without murmur or ectopy Lungs-clear to auscultation, chest wall stable without crepitus or subcu emphysema Abdomen-normoactive bowel sounds, soft, nontender, no rebound or rigidity, no peritoneal signs. Neuro zxxy-xwioni-bply and heel muniz testing within normal limits, negative Romberg, negative pronator, fundi benign. NIH stroke scale was 0. Extremities-intact ?4, normal range of motion, normal pulses, atraumatic] Test Results: [EKG obtained arrival shows sinus rhythm with a ventricular rate of 70 bpm with some nonspecific ST changes. CBC with differential showing a 4.5, hemoglobin 12, hematocrit 35, plates 185. Chemistries unremarkable. Troponin is less than 0.015. LFTs and urinalysis unremarkable. CT scan of the brain without contrast showed chronic changes and resolving subacute bilateral subdural hematomas as well as pneumocephalus likely sequela of prior surgery.] Emergency Department Course and Treatment: [Patient case was discussed with nurse practitioner covering for his neurosurgeon. Apparently the subdural hematomas that are subacute are believed to be new and not related to the surgery as patient did have a CT scan of the brain 4 days after surgery and there was no evidence of hematomas at that time. I was asked to transfer patient to [facility] for further management.] Treatment Plan: [Transfer to [facility]] Disposition: [Transfer] Impression: [Generalized weakness Subacute subdural hematomas Weight loss] This note was generated with [employer] dictation software. It may contain incorrect words, spelling, and punctuation that were not noted in review of the chart prior to signing ED Disposition - Plan for ED Patient: Disposition: [facility] Referrals: Gianluca Trevino MD [Primary Care Provider] -
== END 2019-08-13 18:45 | disposition short-term general hospital (02) ==
LOC: ED 13:40
PROVIDERS: Emergency Provider Emergency Medicine; Family Provider Family Medicine; PCP Family Medicine
DX: I62.01 Nontraumatic acute subdural hemorrhage (principal); R53.1 Weakness; G93.89 Other specified disorders of brain; I25.10 Atherosclerotic heart disease of native coronary artery without angina pectoris; R63.4 Abnormal weight loss; Z68.29 Body mass index [BMI] 29.0-29.9, adult; Z95.5 Presence of coronary angioplasty implant and graft
CPT/HCPCS: 70450; 80053; 81001; 84484; 85025; 93005; 96361; 96374; 99285; J7030; A4216

== ENCOUNTER → 2019-10-01 09:17 | Outpatient (CLI) | payer MEDICARE, SELFPAY ==
[2019-10-01 10:22] LABS: Absolute Lymphocyte Count 1.84 X10^3/uL (0.83-4.51); Absolute Neutrophil Count 3.7 X10^3/uL (2.0-7.7); Basophil# 0.06 X10^3/uL; Basophil% 0.9 % (0-1); Eosinophil# 0.23 X10^3/uL; Eosinophils% 3.6 % (0-5); Hematocrit 37.1 % (40-54); Hemoglobin 11.9 g/dL (13.0-16.5); Lymphocyte # 1.84 X10^3/ul (4.0); Lymphocyte % 28.8 % (19-41); Mean Corp Hgb Conc 32.1 g/dL (32-36); Mean Corpuscular Hgb 30.6 pg (27.0-32.0); Mean Corpuscular Volume 95.4 fL (80-94); Mean Platelet Vol. 9.4 fl (6.2-12.0); Monocyte# 0.47 X10^3/uL; Monocyte% 7.4 % (0-10); NRBC Flagged by Analyzer 0 % (0-5); Neutrophil # 3.74 X10^3/uL (2.7-7.7); Neutrophil % 58.7 % (47-70); Platelet Count 185 K/mm3 (150-450); RBC Distribution Width CV 13.1 % (11.6-14.6); RBC Distribution Width SD 45.5 fl (35.1-43.9); Red Blood Count 3.89 M/mm3 (4.6-6.2); White Blood Count 6.4 K/mm3 (4.4-11.0)
[2019-10-01 10:49] LABS: ALB/GLOB Ratio 1.1 RATIO (0.9-2.4); AST(SGOT) 65 U/L (15-37); Alanine Aminotransfer ALT/SGPT 71 U/L (16-61); Albumin, Serum 3.7 g/dL (3.2-5.0); Alkaline Phosphatase 78 U/L (45-117); Anion Gap 6 (5-15); BUN 14 mg/dL (7-18); BUN/Creat Ratio 12.1 RATIO (10-20); Calcium,Total 9.3 mg/dL (8.5-10.1); Chloride 104 mmol/L (98-107); Creatinine, Serum 1.16 mg/dL (0.70-1.30); EST Glomerular Filtration Rate 65 mL/min (>60); Est Glom Filt Rate - Afr Amer 78 mL/min (>60); Globulin 3.4 g/dL (2.2-4.2); Glucose 130 mg/dL (74-106); Potassium 3.3 mmol/L (3.5-5.1); Protein, Total 7.1 g/dL (6.4-8.2); Sodium Level 140 mmol/L (136-145); Thyroid Stim Hormone (TSH) 0.04 uIU/mL (0.358-3.74)
== END ==
PROVIDERS: PCP Family Medicine; Referring Provider Family Medicine; Visit Provider Family Medicine
DX: E03.9 Hypothyroidism, unspecified (principal); S06.5X9A Traumatic subdural hemorrhage with loss of consciousness of unspecified duration, initial encounter; R11.2 Nausea with vomiting, unspecified
CPT/HCPCS: 36415; 80053; 84439; 84443; 85025

== ENCOUNTER → 2019-10-05 06:56 | Outpatient (CLI) | payer MEDICARE, SELFPAY ==
--- NOTE | 2019-10-05 07:07 | MRI_ITS ---
STUDY: MRI LUMBAR SPINE WITH AND WITHOUT CONTRAST REASON FOR EXAM: Male, 79 years old. LUMBAR FX H/O FALL 04/2019 TECHNIQUE: Standardized fat and water weighted pulse sequences were obtained in the sagittal and axial planes. IV DOTAREM 18 CC was administered for the contrast portion of the examination. COMPARISON: CT dated May 06, 2019 FINDINGS: T12-L1: Again noted is a severe compression fracture at L1 with retropulsion resulting in mild central canal stenosis. There is mild bilateral foraminal stenosis as well. There is no evidence of longitudinal ligamenta disruption. Normal lumbar lordosis. There is no substantial scoliosis. Normal conus medullaris that terminates at the L1 L1-2: There is mild disc space narrowing and endplate spondylosis. There is no significant disc herniation, central canal or foraminal stenosis. L2-3: There is minimal disc space narrowing and endplates spondylosis. Mild disc bulge and facet arthropathy without significant central canal stenosis. Mild right and mild left foraminal stenosis. L3-4: There is minimal disc space narrowing and endplates spondylosis. Mild disc bulge and facet arthropathy. Right hemilaminectomy. Central canal is widely patent. Moderate right and mild left foraminal stenosis. L4-5: There is mild disc space narrowing and endplates spondylosis. Severe facet arthropathy with a minimal grade 1 anterolisthesis and mild disc bulge without significant central canal stenosis. Mild right and mild left foraminal stenosis. L5-S1: There is mild disc space narrowing and endplates spondylosis. Mild disc bulge and moderate facet arthropathy without significant central canal stenosis. Minimal right and minimal left thrombosis. Normal visualized sacral ala. MRI/Spine Lumbar W/WO Contrast IMPRESSION: L1: Stable severe compression fracture with retropulsion and mild central canal stenosis. No ligamentous injury. L3/L4: Right hemilaminectomy. Moderate right foraminal stenosis. L4/L5: Facet arthropathy with grade 1 anterolisthesis Electronically Signed: Sergio Gunderson MD at 8:02 EST Tel , Service support ,
[2019-10-05 07:30] LABS: Creatinine, Serum 1.18 mg/dL (0.70-1.30); EST Glomerular Filtration Rate 63 mL/min (>60); Est Glom Filt Rate - Afr Amer 77 mL/min (>60)
== END ==
PROVIDERS: PCP Family Medicine; Visit Provider Orthopaedic Surgery Orthopaedic Surgery of the Spine
DX: S32.001A Stable burst fracture of unspecified lumbar vertebra, initial encounter for closed fracture (principal); M48.061 Spinal stenosis, lumbar region without neurogenic claudication; Z98.890 Other specified postprocedural states
CPT/HCPCS: 36415; 72158; 82565; A9575

== ENCOUNTER 2019-10-24 10:22 | Emergency (ER) | payer MEDICARE, SELFPAY ==
[2019-10-24 10:24] VITALS: BP 117/57; PULSE 56; RESP 19; TEMP 36.7; O2SAT 95; BMI 31.1
--- NOTE | 2019-10-24 10:43 | CT_ITS ---
STUDY: CT BRAIN WITHOUT CONTRAST REASON FOR EXAM: Male, 79 years old. Intracranial hemorrhage, headache and dizziness today, aspirin restarted 1 week ago, pituitary gland removed 07/2019, minor bleeding 2 weeks ago. RADIATION DOSAGE (If Supplied By Facility): CTDIvol = ( 44.99 ) mGy, DLP = ( 796.11 ) mGycm TECHNIQUE: Transaxial CT imaging of the brain was performed without administration of intravenous contrast material. Individualized dose optimization techniques were used for this CT. COMPARISON: 08/13/2019 FINDINGS: Normal soft tissue structures. Normal calvarium. There is moderate cerebral atrophy with widening of the extra-axial spaces and ventricular dilatation. There are areas of decreased attenuation within the white matter tracts of the supratentorial brain, consistent with microvascular disease changes. Normal basal ganglia and thalami. Normal brainstem. Normal cerebellum. Further decrease in the widening of the subdural space in the frontal areas bilaterally consistent with further improvement in the chronic subdural hematoma/subdural hygromas. There are no findings of an acute ischemic infarction. Normal visualized paranasal sinuses. CT/Brain/Head without Contrast IMPRESSION: 1. No acute hemorrhage. Further improvement in bilateral frontal chronic subdural hematomas or subdural hygromas. 2. Moderate atrophy and mild microangiopathic lordosis. Electronically Signed: Sher Gomez MD at 11:25 EDT Tel , Service support ,
--- NOTE | 2019-10-24 10:44 | ED.VIS.GEN ---
History of Present Illness Chief Complaint: Headache Informant: Patient, Family Narrative: Patient presents the emergency department with headache nausea and dizziness. Patient states he had a pituitary tumor removed through [facility] in July. He had a follow-up CT performed a couple weeks ago that showed some bleeding. called the doctors office today and said he had an increase in his dizziness and nausea and requested that he come to the emergency department to have a CAT scan performed. His previous CT was not performed here at [facility] was performed in [place]. tells me the doctor would like a copy sent to her. Patient has a difficult describing his dizziness. Is not a sensation that the room is spinning. He says that word lightheaded but not near syncopal. Past Medical History - Allergies and Home Meds Allergies/Adverse Reactions: Allergies No Known Allergies Allergy (Verified 10/24/19 10:23) Primary Care Physician: Gianluca Trevino MD [Primary Care Provider] - As Needed Smoking Status: Never smoker Review of Systems General: Denies: Chills, Fever, Sweats Eyes: Denies: Visual changes - bilaterally, Diplopia ENT: Denies: Rhinorrhea, Sore throat Cardiovascular: Denies: Chest pain, Palpitations Respiratory: Denies: Dyspnea, Cough, Dyspnea on exertion Gastrointestinal: Reports: Nausea. Denies: Abdominal pain, Vomiting, Diarrhea, Melena, Hematochezia Genitourinary: Denies: Dysuria, Hematuria, Frequency Musculoskeletal: Denies: Back pain, Extremity Pain Skin: Denies: Rash, Wounds Neurological: Reports: Headache, - - Dizziness. Denies: Weakness, Numbness Physical Exam Vital Signs/Narrative: Vital Signs Temp Pulse Resp BP Pulse Ox 10/24/19 10:24 98.1 F 56 L 19 H 117/57 L 95 Inital Vital Signs reviewed: Yes General: Well nourished, Well developed, No Acute Distress Head: Normocephalic, Atraumatic Eyes: Perrl, EOMI ENT: Moist mucous membranes, No rhinorrhea Neck: Supple, Nontender Cardiovascular: Regular rate, Regular rhythm, No murmurs Respiratory: No distress, CTA bilaterally, Chest nontender Abdomen: Soft, Nontender, Nondistended, Normal bowel sounds Back: Nontender, Normal Inspection Extremities: Nontender, No edema Skin: Normal color, No rash Neurological: Alert, Oriented x3, Cranial nerves II-XII grossly intact, Normal Strength, Normal Sensation Psychological: Normal affect, Normal Mood Diagnostic/Tx/Re-eval - Medical Decision Making CT of the brain was obtained. This demonstrated a decrease in the widening of the subdural space in the frontal areas bilaterally consistent with further improvement in the chronic subdural hematoma/subdural hygromas. This were pushing and his neurosurgeons office contacted so they can review them. At this time the patient be discharged home. Her neurosurgeon's office will call them. ED Disposition - Plan for ED Patient: Disposition: Home or Assisted Living Diagnosis: Chronic headache, Dizziness, Chronic subdural hematoma Instructions: DIZZINESS, Unk Cause, HEADACHE, Unspecified Referrals: Gianluca Trevino MD [Primary Care Provider] - As Needed Additional Instructions: Please follow-up with your neurosurgeon.
[2019-10-24 12:48] VITALS: BP 118/74; PULSE 63; RESP 16; O2SAT 97
== END 2019-10-24 12:49 | disposition home or self-care (01) ==
PROVIDERS: Emergency Provider Emergency Medicine; PCP Family Medicine
DX: R51 Headache (principal); R42 Dizziness and giddiness; I62.03 Nontraumatic chronic subdural hemorrhage; Z79.899 Other long term (current) drug therapy; Z79.82 Long term (current) use of aspirin
CPT/HCPCS: 70450; 99282

== ENCOUNTER 2019-11-01 04:46 | Inpatient (IN) | payer MEDICARE, SELFPAY ==
[2019-11-01] VITALS (60 sets, daily range): BP systolic 64–151; BP diastolic 28–74; PULSE 52–92; RESP 16–30; TEMP 36.9–38.7; O2SAT 9–100; BMI 28.0; BMI 31.2
--- NOTE | 2019-11-01 04:58 | RAD_ITS ---
HISTORY: Not feeling well x 3 weeks. N/V/D started today. Fever at home. Syncopal episode denies any cough or sob EXAMINATION/TECHNIQUE: XR Chest 1 View: Portable upright COMPARISON: None FINDINGS: Cardiac telemetry leads in place. Shallow inspiration. Right basilar small atelectasis or infiltrate. Hypoventilation of the left lung base. The upper lobes appear clear. Normal heart size. No vascular congestion or significant pleural effusion. No pneumothorax. RAD/Chest 1 View (Portable) IMPRESSION: 1. Limited inspiration with right basilar small atelectasis or infiltrate. 2. No CHF. at 0605 Reported and signed by: Jaren Alves MD Electronically Signed: Jaren Alves, at 6:04 EDT Tel , Service support ,
--- NOTE | 2019-11-01 04:58 | EKG12_ITS ---
Test Reason : GEN ILLNESS Blood Pressure : / mmHG Vent. Rate : 086 BPM Atrial Rate : 086 BPM P-R Int : 188 ms QRS Dur : 102 ms QT Int : 400 ms P-R-T Axes : 084 031 152 degrees QTc Int : 478 ms Normal sinus rhythm ST & T wave abnormality, consider anterolateral ischemia Prolonged QT Abnormal ECG Confirmed by IAN HDEZ ([id number]), online editor MINDI MARIN ([id number]) on 11/05/2019 11:05:27 AM Referred By: ROLAN Confirmed By:IAN HDEZ
--- NOTE | 2019-11-01 04:59 | ED.VIS.GEN ---
History of Present Illness Chief Complaint: General Illness Informant: Patient Onset: Days Context: Gradual Onset Current Severity: Moderate Maximum Severity: Moderate Narrative: Patient presents via EMS with 1 week history of nausea, vomiting, and diarrhea. He complains of generalized weakness and shakiness. Tonight he apparently had a near syncopal episode while sitting on the commode. He states he did fall to the floor but does not believe he completely lost consciousness. He reportedly has had a fever at home. Patient denies chest pain or shortness of breath. He has not had significant cough. He denies abdominal pain. - Past Medical History (1) Arthritis Status: Chronic (2) History of back surgery Status: Chronic Comment: L3& L4 Fusion (3) History of heart attack Status: Chronic (4) Hx of elbow surgery Status: Chronic Comment: Left (5) Hx of heart artery stent Status: Chronic Comment: X6 Past Medical History - Allergies and Home Meds Allergies/Adverse Reactions: Allergies No Known Allergies Allergy (Verified 10/24/19 10:23) Primary Care Physician: Gianluca Trevino MD [Primary Care Provider] - Prior records reviewed: Yes Lives: Spouse/ Significant Other Smoking Status: Never smoker Review of Systems General: Reports: Fever Eyes: Denies: Visual changes - bilaterally ENT: Denies: Bilateral ear pain Cardiovascular: Denies: Chest pain Respiratory: Denies: Dyspnea, Cough Gastrointestinal: Reports: Nausea, Vomiting, Diarrhea. Denies: Abdominal pain Genitourinary: Denies: Dysuria Musculoskeletal: Denies: Extremity Pain Skin: Denies: Rash Neurological: Reports: Weakness - Generalized weakness. Denies: Headache Allergy: Denies: Uticaria Physical Exam Vital Signs/Narrative: Vital Signs Temp Pulse Resp BP Pulse Ox 11/01/19 04:57 101.7 F H 90 22 H 116/61 96 11/01/19 04:52 90 22 H 116/61 96 11/01/19 04:47 101.7 F H Inital Vital Signs reviewed: Yes General: Well nourished, Well developed Head: Normocephalic ENT: Moist mucous membranes Cardiovascular: Regular rate, Regular rhythm Respiratory: No distress, CTA bilaterally Abdomen: Soft, Nontender, Hypoactive bowel sounds Extremities: Nontender Skin: Normal color, No rash Neurological: Alert, Oriented x3, - - No focal deficits. Patient does have a tremor in the right upper extremity at rest. Psychological: Normal affect Diagnostic/Tx/Re-eval Impressions Chest X-Ray 11/01/19 04:58 IMPRESSION: 1. Limited inspiration with right basilar small atelectasis or infiltrate. 2. No CHF. at 0605 Reported and signed by: Jaren Alves MD Electronically Signed: Jaren Alves, at 6:04 EDT Tel , Service support , 11/01/19 04:58 Chest 1 View (Portable) [RAD] Stat 11/01/19 06:00 Mucosa - Nose Influenza Types A,B Direct FA (CRISSY) - Final Laboratory Results 11/01/19 11/01/19 11/01/19 05:00 05:00 05:00 WBC 9.9 RBC 4.44 L Hgb 13.6 Hct 40.7 MCV 91.7 MCH 30.6 MCHC 33.4 RDW Std Deviation 43.2 RDW Coeff of Delisa 13.0 Plt Count 183 MPV 9.2 Immature Gran % (Auto) 0.300 Neut % (Auto) 87.5 H Lymph % (Auto) 6.0 L Bradford % (Auto) 4.7 Eos % (Auto) 1.1 Baso % (Auto) 0.4 Absolute Neuts (auto) 8.7 H Absolute Lymphs (auto) 0.60 L Nucleated RBC % 0 Differential Comment PT 14.5 INR 1.1 APTT 32.4 Sodium 134 L Potassium 3.5 Chloride 101 Carbon Dioxide 25.0 Anion Gap 8 BUN 11 Creatinine 1.56 H Estim Creat Clear Calc 40.30 Est GFR (MDRD) Af Amer 56 L Est GFR (MDRD) Non-Af 46 L BUN/Creatinine Ratio 7.1 L Glucose 137 H Lactic Acid Calcium 9.3 Total Bilirubin 1.20 H AST 42 H ALT 37 Alkaline Phosphatase 85 Troponin I Total Protein 7.8 Albumin 4.0 Globulin 3.8 Albumin/Globulin Ratio 1.1 Urine Color Urine Clarity Urine pH Ur Specific [place] Urine Protein Urine Glucose (UA) Urine Ketones Urine Occult Blood Urine Nitrite Urine Bilirubin Urine Urobilinogen Ur Leukocyte Esterase Urine RBC Urine WBC Ur Squamous Epith Cells Urine Bacteria Urine Mucus 11/01/19 11/01/19 11/01/19 05:00 05:00 05:55 WBC RBC Hgb Hct MCV MCH MCHC RDW Std Deviation RDW Coeff of Delisa Plt Count MPV Immature Gran % (Auto) Neut % (Auto) Lymph % (Auto) Bradford % (Auto) Eos % (Auto) Baso % (Auto) Absolute Neuts (auto) Absolute Lymphs (auto) Nucleated RBC % Differential Comment PT INR APTT Sodium Potassium Chloride Carbon Dioxide Anion Gap BUN Creatinine Estim Creat Clear Calc Est GFR (MDRD) Af Amer Est GFR (MDRD) Non-Af BUN/Creatinine Ratio Glucose Lactic Acid 3.7 H* Calcium Total Bilirubin AST ALT Alkaline Phosphatase Troponin I < 0.015 Total Protein Albumin Globulin Albumin/Globulin Ratio Urine Color Yellow Urine Clarity Clear Urine pH 6.0 Ur Specific [place] 1.010 Urine Protein 15 H Urine Glucose (UA) Normal Urine Ketones Negative Urine Occult Blood Negative Urine Nitrite Negative Urine Bilirubin Negative Urine Urobilinogen 4 H Ur Leukocyte Esterase Negative Urine RBC 0 SEEN Urine WBC 0 SEEN Ur Squamous Epith Cells 0 SEEN Urine Bacteria 0 SEEN Urine Mucus 0 SEEN - EKG Initial EKG Interpretation: Sinus Rhythm - Sinus at [address] depression. This is more pronounced when compared to prior study from July 2019. - Medical Decision Making Patient was given Zofran and Tylenol along with IV fluids. When lactic acid returned elevated he was ordered 30 cc/kg IV fluid bolus. On repeat evaluation patient does feel improved. Has been able to tolerate p.o. fluids. At this time he meets criteria for severe sepsis but I do not have a definitive source. He is given Zosyn and vancomycin as per sepsis treatment order set. He will be admitted for further treatment. Patient's is now at bedside. She states patient started complaining of upset stomach yesterday afternoon and started vomiting around midnight. She states early this morning was the first time she had noted a fever for him. She agrees the patient had near syncope but never completely lost consciousness. ED Disposition - Plan for ED Patient: Disposition: Acute Care [facility] Diagnosis: Severe sepsis Referrals: Gianluca Trevino MD [Primary Care Provider] -
[2019-11-01] MEDS: 0.9% Normal Saline 1,000 ML 150 ML IV ×3 (05:13→21:20)
[2019-11-01] MEDS: Ondansetron 4 MG/2 ML Vial IV ×2 (05:13→12:34)
[2019-11-01] MEDS: Acetaminophen 500 MG Tablet 1000 MG PO (05:13)
[2019-11-01 05:24] LABS: Absolute Neutrophil Count 8.7 X10^3/uL (2.0-7.7); Basophil# 0.04 X10^3/uL; Basophil% 0.4 % (0-1); Eosinophil# 0.11 X10^3/uL; Eosinophils% 1.1 % (0-5); Hematocrit 40.7 % (40-54); Hemoglobin 13.6 g/dL (13.0-16.5); Mean Corp Hgb Conc 33.4 g/dL (32-36); Mean Corpuscular Hgb 30.6 pg (27.0-32.0); Mean Corpuscular Volume 91.7 fL (80-94); Mean Platelet Vol. 9.2 fl (6.2-12.0); Monocyte# 0.47 X10^3/uL; Monocyte% 4.7 % (0-10); NRBC Flagged by Analyzer 0 % (0-5); Neutrophil # 8.68 X10^3/uL (2.7-7.7); Neutrophil % 87.5 % (47-70); POSITIVE DIFFERENTIAL YES; Platelet Count 183 K/mm3 (150-450); RBC Distribution Width SD 43.2 fl (35.1-43.9); Red Blood Count 4.44 M/mm3 (4.6-6.2); White Blood Count 9.9 K/mm3 (4.4-11.0)
[2019-11-01 05:27] LABS: Differential Indicated SCAN CRITERIA MET; International Normalized Ratio 1.1; Prothrombin Time (Protime)PT. 14.5 SECONDS (11.7-14.9)
[2019-11-01 05:28] LABS: Partial Thromboplast Time 32.4 Seconds (24.1-36.2)
[2019-11-01 05:37] LABS: ALB/GLOB Ratio 1.1 RATIO (0.9-2.4); AST(SGOT) 42 U/L (15-37); Alanine Aminotransfer ALT/SGPT 37 U/L (16-61); Alkaline Phosphatase 85 U/L (45-117); Anion Gap 8 (5-15); BUN 11 mg/dL (7-18); BUN/Creat Ratio 7.1 RATIO (10-20); Calcium,Total 9.3 mg/dL (8.5-10.1); Chloride 101 mmol/L (98-107); Creatinine, Serum 1.56 mg/dL (0.70-1.30); EST Glomerular Filtration Rate 46 mL/min (>60); Est Glom Filt Rate - Afr Amer 56 mL/min (>60); Globulin 3.8 g/dL (2.2-4.2); Glucose 137 mg/dL (74-106); Potassium 3.5 mmol/L (3.5-5.1); Protein, Total 7.8 g/dL (6.4-8.2); Sodium Level 134 mmol/L (136-145)
[2019-11-01 05:38] LABS: Lactic Acid 3.7 mmol/L (0.4-1.9)
[2019-11-01] MEDS: 0.9% Normal Saline 1,000 ML 999 ML IV ×2 (06:03)
[2019-11-01 06:10] LABS: Bacteria 0 SEEN /hpf (None Seen); Mucous, Urine 0 SEEN /hpf (<or=2+); Red Blood Cells-Urine 0 SEEN /hpf (0-5); Squamous Epithelial Cells - UA 0 SEEN /hpf (0-5); White Blood Cells 0 SEEN /hpf (0-5)
[2019-11-01 06:14] LABS: Color, Urine Yellow (Yellow); Glucose, Dipstick Normal (Normal); Ketone-Dipstick Negative (Negative); Leukocyte Esterase-Dipstick Negative /ul (Negative); Nitrite-Dipstick Negative (Negative); Occult Blood-Urine Negative /ul (Negative); Protein-Dipstick 15 mg/dl (Negative); Urine Bilirubin Dipstick Negative (Negative); Urine Clarity Clear (Clear); Urine Urobilinogen 4 mg/dl (Normal)
--- NOTE | 2019-11-01 06:31 | ED.RN ---
Delay in repeat temp d/t pt drinking water. Held water and repeat temp taken.
--- NOTE | 2019-11-01 07:14 | PCM.HP.STD ---
Problem List (1) Pituitary adenoma Status: Resolved (2) Low back problem Status: Chronic (3) Fatigue Status: Acute Qualifiers: Encounter type: initial encounter History of Present Illness Date of Admission: 11/01/19 Chief Complaint: Syncope, dizziness - 1 day. Diarrhea - started 6 days The patient is a 79 year old M with PMHx of pituitary adenoma s/p surgery in July 2019, who follows with neurosurgery, hypertension, history of CAD status post MT who comes in after a fall and complaints of dizziness. Patient thinks that he has a touch of vertigo after his pituitary surgery. He has been following up with neurosurgery and was told that he has some bleeding which is been monitored. Patient reports a 6-day history of diarrhea, denies any recent travel, no sick contact, denies eating any new foods. He has been at home with her . He admits to having diarrhea for 3 days with about 2 days. And diarrhea again. Last had a bowel movement about 2 to 3 days ago. Denies any runny nose of fever or chills. This morning, he was found on the floor in the bathroom, unclear how long he was out for. Patient had complained of dizziness when he was helped up. The EMS was called and patient was found to have a fever of 102F. Vitals in the ED showed temperature 101.7 heart rate 90, blood pressure 116/61 respiratory 22, SPO2 was 96% on room air. WBC count is 9.9, hemoglobin 13.6, platelet count 186, INR 1.1, sodium 134, potassium 3.5, chloride 101, bicarbonate 25, BUN 11, creatinine 1.56. Lactic acid was 3.7, UA unremarkable. Past Medical History Past Medical History (Chronic Problems): Chronic Problems (Last Reviewed 05/14/19 @ 14:49 by Juju Curtis) Arthritis (Chronic) Hx of heart artery stent (Chronic) X6 History of heart attack (Chronic) Low back problem (Chronic) Medical History: Medical History (Last Reviewed 05/14/19 @ 14:49 by Juju Curtis) Left breast lump (Acute) N63.20 Abnormal ultrasound of breast (Acute) R92.8 Arthritis (Chronic) M19.90 History of heart attack (Chronic) I25.2 Low back problem (Chronic) M53.9 Fatigue (Acute) R53.83 Allergies No Known Allergies Allergy (Verified 10/24/19 10:23) Home Medications: Ambulatory Orders Medication Instructions Recorded Aspirin [Aspirin, Baby] 81 mg PO DAILY@0800 11/17/15 Hydrochlorothiazide 12.5 mg PO DAILY 11/17/15 [place]-3 Fatty Acids [Fish Oil] 1,000 mg PO DAILY 11/17/15 atenolol 25 mg tablet 25 mg PO DAILY 04/24/19 cholecalciferol (vitamin D3) 50 2,000 unit PO DAILY 04/24/19 mcg (2,000 unit) capsule tamsulosin 0.4 mg capsule 0.4 mg PO DAILY cap 04/24/19 trazodone 50 mg tablet 50 mg PO QHS 04/24/19 Escitalopram Oxalate 10 mg PO DAILY 10/24/19 Finasteride 5 mg PO DAILY 10/24/19 Levothyroxine [Synthroid] 100 mcg PO DAILY 10/24/19 Losartan Potassium [Cozaar] 25 mg PO DAILY 10/24/19 Metformin HCl [Metformin HCl ER] 500 mg PO DAILY 10/24/19 Azelastine HCl [Astelin] 2 spray NARES 4X/DAY 11/01/19 Docusate Sodium [Colace] 100 mg PO BID PRN 11/01/19 Nitroglycerin 2.5 mg PO PRN PRN 11/01/19 Surgical History: Surgical History (Last Reviewed 05/14/19 @ 14:49 by Juju Curtis) Hx of left breast biopsy (Resolved) Z98.890 Gynecomastia only on biopsy 04/28/2019 Hx of colonoscopy (Resolved) Z98.890 History of back surgery (Resolved) Z98.890 L3& L4 Fusion Hx of elbow surgery (Resolved) Z98.890 Left Hx of heart artery stent (Chronic) Z95.5 X6 Surgical History: - - Status post elbow surgery, back surgery, s/p 6 cardiac stents Psychiatric History: No pertinent psych hx Lives: Spouse/ Significant Other Smoking Status: Never smoker Tobacco Use: Non-smoker Alcohol: None Drugs: None - *Family History Maternal Family History: Family History (Last Reviewed 05/14/19 @ 14:49 by Juju Curtis) Mother Skin cancer Cancer Sister Cancer History Items: Cancer Paternal Family History: Family History (Last Reviewed 05/14/19 @ 14:49 by Juju Curtis) Mother Skin cancer Cancer Sister Cancer History Items: Heart Disease - MT Review of Systems Constitutional: Reports: Anorexia, Chills, Fever, Malaise, Weakness, Fatigue. Denies: Weight Change Eyes: Denies: Blurred vision, Cataracts, Conjunctivae Inflammation, Double vision, Pain, Redness, Vision Change HEENT: Denies: Difficulty Hearing, Difficulty Swallowing, Head Aches, Hearing Changes, Sinus Congestion, Sinus Drainage Cardiovascular: Reports: Light Headedness. Denies: Chest Pain, Orthopnea, Palpitations, Paroxysmal Noc. Dyspnea Respiratory: Denies: Cough, Hemoptysis, Shortness of breath at rest, Shortness of breath upon exertion, Sputum production Gastrointestinal: Reports: Abdominal Pain, Diarrhea, Nausea, Vomiting. Denies: Constipation, Hematemesis, Hematochezia Genitourinary: Denies: Dysuria, Frequency, Incontinence Musculoskeletal: Denies: Joint Pain, Joint stiffness, Joint swelling, Joint Tenderness Skin: Denies: Rash, Wounds Neurological: Denies: Difficulty swallowing, Focal weakness, Numbness, Tingling Psychiatric: Denies: Anxiety, Depression, Homicidal Ideations, Suicidal Ideations Hematologic/ Lymphatic: Denies: Easy Bruising, Easy Bleeding VTE Information - Inpt Only VTE Present on Admission: No VTE Pharm Prophylaxis ordered?: Yes Patient Problems: Active and Suspected Problems (Last Reviewed 05/14/19 @ 14:49 by Juju Curtis) Severe sepsis (Suspected) - Physical Exam Vitals/I&O's: Vital Signs Temp Pulse Resp BP Pulse Ox 100.7 F H 76 23 H 103/48 L 95 11/01/19 07:10 11/01/19 07:04 11/01/19 07:04 11/01/19 07:04 11/01/19 07:04 Oxygen Delivery Method Room Air Weight: 88.7 kg Body Mass Index (BMI) 28.0 Intake and Output for Last 24 Hours 10/30/19 10/31/19 11/01/19 23:59 23:59 23:59 Intake Total 2765.00 / 2765.00 Balance 2765.00 / 2765.00 General: Alert, Oriented x3, Cooperative, No apparent distress HEENT: Atraumatic, PERRLA, EOMI, Normocephalic Oral: Dry Mucosa Neck: Supple Lungs: Clear to auscultation, Normal air movement Cardiovascular: Regular rate, Regular Rhythm, Normal S1, Normal S2, No murmurs Abdomen: Bowel Sounds Present, Soft, Non Tender, Non-Distended, No Hepato-splenomegaly Extremities: No edema Skin: No rashes, No breakdown Musculoskeletal: No Tenderness to Palpation of Joints or Extremities Lymphatic: No Cervical, Supraclavicular, or Inguinal Adenopathy Neurological: Cranial nerves II-XII grossly intact, Neuro grossly intact Psych/Mental Status: Normal Affect, Appropriate Microbiology Past 72 Hours 11/01/19 06:00 Mucosa - Nose Influenza Types A,B Direct FA (CRISSY) - Final Laboratory Results 11/01/19 05:00: WBC 9.9, RBC 4.44 L, Hgb 13.6, Hct 40.7, MCV 91.7, MCH 30.6, MCHC 33.4, RDW Std Deviation 43.2, RDW Coeff of Delisa 13.0, Plt Count 183, MPV 9.2, Immature Gran % (Auto) 0.300, Neut % (Auto) 87.5 H, Lymph % (Auto) 6.0 L, [place] % (Auto) 4.7, Eos % (Auto) 1.1, Baso % (Auto) 0.4, Absolute Neuts (auto) 8.7 H, Absolute Lymphs (auto) 0.60 L, Nucleated RBC % 0, Differential Comment 11/01/19 05:00: PT 14.5, INR 1.1, APTT 32.4 11/01/19 05:00: Sodium 134 L, Potassium 3.5, Chloride 101, Carbon Dioxide 25.0, Anion Gap 8, BUN 11, Creatinine 1.56 H, Estim Creat Clear Calc 40.30, Est GFR (MDRD) Af Amer 56 L, Est GFR (MDRD) Non-Af 46 L, BUN/Creatinine Ratio 7.1 L, Glucose 137 H, Calcium 9.3, Total Bilirubin 1.20 H, AST 42 H, ALT 37, Alkaline Phosphatase 85, Total Protein 7.8, Albumin 4.0, Globulin 3.8, Albumin/Globulin Ratio 1.1 11/01/19 05:00: Lactic Acid 3.7 H* 11/01/19 05:00: Troponin I < 0.015 11/01/19 05:55: Urine Color Yellow, Urine Clarity Clear, Urine pH 6.0, Ur Specific [place] 1.010, Urine Protein 15 H, Urine Glucose (UA) Normal, Urine Ketones Negative, Urine Occult Blood Negative, Urine Nitrite Negative, Urine Bilirubin Negative, Urine Urobilinogen 4 H, Ur Leukocyte Esterase Negative, Urine RBC 0 SEEN, Urine WBC 0 SEEN, Ur Squamous Epith Cells 0 SEEN, Urine Bacteria 0 SEEN, Urine Mucus 0 SEEN Current Medications Sodium Chloride () 1,000 mls @ 150 mls/hr IV .[id number] ANAHI Last Infusion: 11/01/19 06:08 Dose: 150 mls/hr Documented by: Vancomycin HCl 2,000 mg/ (Sodium Chloride) 540 mls @ 250 mls/hr IV X1 ONE Stop: 11/01/19 09:09 Assessment/Plan All Active Problems (Last Reviewed 05/14/19 @ 14:49 by Juju Curtis) Pituitary adenoma (Resolved) Hx of left breast biopsy (Resolved) Left breast lump (Acute) Abnormal ultrasound of breast (Acute) Hx of colonoscopy (Resolved) History of back surgery (Resolved) Hx of elbow surgery (Resolved) Fatigue (Acute) 79 year old M with PMHx of pituitary adenoma s/p surgery in July 2019, who follows with neurosurgery, hypertension, history of CAD status post MT who comes in after a fall and complaints of dizziness. 1. Septic shock, unclear etiology for now- patient with fever, elevated RR, chest x-ray shows possible infiltrate With recent gastroenteritis, likely source Started on vancomycin and Zosyn Stool for enteric panel, follow-up on blood cultures, urine cultures 2. H/o recent pituitary adenoma resection, will get random cortisol level and start patient on hydrocortisone 3. H/o syncope and fall, get CT of the brain 4. Hypertension, home meds on hold now, patient now has shock, will continue to monitor vitals 4. Type 2 DM, home metformin on hold, continue on blood glucose with ISS 5. Hypothyroidism, continue on levothyroxine 6. Anxiety/depression, continue on trazodone/Lexapro 7. DVT PPx- Heparin SC Inpatient E&M: 09106 Init Hosp L3
--- NOTE | 2019-11-01 08:10 | RAD_ITS ---
STUDY: X-RAY CHEST REASON FOR EXAM: Male, 79 years old. CENTRAL LINE PLACEMENT TECHNIQUE: Single AP portable view of the chest. COMPARISON: Comparison is made with prior examination done earlier the 5:23 AM. FINDINGS: A right-sided internal jugular venous catheter is seen. The tip is in the proximal portion of the superior vena cava. EKG electrodes are seen. Stable increased markings at the right lung base suggestive of atelectasis and/or infiltrate. There is no demonstrated pleural abnormality. Normal size heart. Normal mediastinum and rd. Normal visualized pulmonary arteries. There is atherosclerotic tortuosity of the aortic arch and descending thoracic aorta. There are diffuse degenerative changes of the visualized thoracic spine. Normal visualized ribs, clavicles, and shoulders. There is no demonstrated abnormality of the visualized soft tissue structures of the upper abdomen. RAD/CXR for Line Placement IMPRESSION: A right-sided internal jugular venous catheter seen with the tip in the proximal portion of the superior vena cava. The remainder of the examination is unchanged. Electronically Signed: Luis Fontaine, at 8:36 EDT , Service support ,
[2019-11-01 09:18] LABS: Reflex Lactate? Y
[2019-11-01 10:07] LABS: Lactic Acid 1.2 mmol/L (0.4-1.9)
--- NOTE | 2019-11-01 10:52 | CASEMGMT ---
As per admitting RN, pt has LW/POA forms but unable to bring them in, Neli Marshall is pt's medical POA as per pt. ANA Brody
--- NOTE | 2019-11-01 11:35 | CASEMGMT ---
RN CM Assessment Note Presentation: Severe Sepsis, 1 week hx of nausea, vomiting, diarrhea Intro role of CM and purpose of RN CM assessment to patient's in waiting room. Demographics, PCP and Pharmacy verified. states prior to this illness, pt has been independent. Was @ [facility] in [place] per her report, but she was unsure of dc date. Call to [facility]-pt was discharged from facility on 08-31-2019. Went home with [facility] per ; this was discontinued about three weeks ago. PCP: Dr. García Trevino Specialists: Dr. Mcnair Preferred Pharmacy: [facility] Danita Insurance: [employer] [facility] PPO Prescription Benefit: yes LNOK : Neli Marshall Living Arrangements: Pt lives in one story home with his . She states 3 steps down to family room and bedrooms, bath are on main floor. Transportation: DME: HHC/SNF: [facility], [facility] in past. Patient DC goals: undetermined per . She states if needed, pt can return to [facility] or have [facility] on dc. DC PLAN: undetermined. Will follow pt's progress and PT/OT evaluations when completed. RN CM advised to contact cm for any concerns/needs that may arise. Calli BOYER RN ACM
--- NOTE | 2019-11-01 12:02 | PCM.RX.CS ---
Consult Pharmacy has been consulted to manage selected antiobiotic: Vancomycin Type of Consult: New start Suspected Infection: Sepsis Prior Doses of Antibiotics Received/Current Regimen: Medications Discontinued Medications Vancomycin HCl 2,000 mg/ (Sodium Chloride) 540 mls @ 250 mls/hr IV X1 ONE Stop: 11/01/19 09:09 Last Admin: 11/01/19 11:15 Dose: Infused Documented by: Labs: Sodium 134 mmol/L (136-145) L 11/01/19 05:00 Potassium 3.5 mmol/L (3.5-5.1) 11/01/19 05:00 Chloride 101 mmol/L (98-107) 11/01/19 05:00 Carbon Dioxide 25.0 mmol/L (21.0-32.0) 11/01/19 05:00 Anion Gap 8 (5-15) 11/01/19 05:00 BUN 11 mg/dL (7-18) 11/01/19 05:00 Creatinine 1.56 mg/dL (0.70-1.30) H 11/01/19 05:00 Est GFR (MDRD) Af Amer 56 mL/min (>60) L 11/01/19 05:00 Est GFR (MDRD) Non-Af 46 mL/min (>60) L 11/01/19 05:00 BUN/Creatinine Ratio 7.1 RATIO (10-20) L 11/01/19 05:00 Glucose 137 mg/dL (74-106) H 11/01/19 05:00 Microbiology: Microbiology 11/01/19 06:00 Mucosa - Nose Influenza Types A,B Direct FA (CRISSY) - Final Weight used for dosin kg Estimated Creatinine Clearance: 37 mL/min Goal Trough: 15-20 mcg/mL Pharmacy Plan for Drug Dosing: Vancomycin 2000mg given in ED x1, continue with 1250mg IV q24h with trough prior to 3rd dose per policy. Pharmacy Service will continue to monitor and adjust dosing as required. Follow-Up Labs: Trough Vancomycin - 11/02 @ 0730
[2019-11-01 12:46] LABS: Bedside Glucose 145 mg/dL (70-110)
--- NOTE | 2019-11-01 13:21 | SEPSIS_ITS ---
Sepsis Note - Physical Exam/Vitals Subjective: 89-year-old admitted with septic shock likely secondary to pneumonia versus gastroenteritis Objective: Chest X-Ray 11/01/19 04:58 IMPRESSION: 1. Limited inspiration with right basilar small atelectasis or infiltrate. 2. No CHF. at 0605 Reported and signed by: Jaren Alves MD Electronically Signed: Jaren Alves, at 6:04 EDT Tel , Service support , Chest X-Ray 11/01/19 08:10 IMPRESSION: A right-sided internal jugular venous catheter seen with the tip in the proximal portion of the superior vena cava. The remainder of the examination is unchanged. Electronically Signed: Luis Zhen, at 8:36 EDT , Service support , Temp Pulse Resp BP Pulse Ox 99.2 F H 68 21 H 130/50 H 97 11/01/19 12:00 11/01/19 13:00 11/01/19 13:00 11/01/19 13:00 11/01/19 13:00 11/01/19 11/01/19 11/01/19 12:31 09:30 05:55 WBC RBC Hgb Hct MCV MCH MCHC RDW Std Deviation RDW Coeff of Delisa Plt Count MPV Immature Gran % (Auto) Neut % (Auto) Lymph % (Auto) [place] % (Auto) Eos % (Auto) Baso % (Auto) Absolute Neuts (auto) Absolute Lymphs (auto) Nucleated RBC % Differential Comment PT INR APTT Sodium Potassium Chloride Carbon Dioxide Anion Gap BUN Creatinine Estim Creat Clear Calc Est GFR (MDRD) Af Amer Est GFR (MDRD) Non-Af BUN/Creatinine Ratio Glucose Lactic Acid 1.2 Calcium Total Bilirubin AST ALT Alkaline Phosphatase Troponin I Total Protein Albumin Globulin Albumin/Globulin Ratio Urine Color Yellow Urine Clarity Clear Urine pH 6.0 Ur Specific [place] 1.010 Urine Protein 15 H Urine Glucose (UA) Normal Urine Ketones Negative Urine Occult Blood Negative Urine Nitrite Negative Urine Bilirubin Negative Urine Urobilinogen 4 H Ur Leukocyte Esterase Negative Urine RBC 0 SEEN Urine WBC 0 SEEN Ur Squamous Epith Cells 0 SEEN Urine Bacteria 0 SEEN Urine Mucus 0 SEEN POC Glucose 145 H 11/01/19 11/01/19 11/01/19 05:00 05:00 05:00 WBC RBC Hgb Hct MCV MCH MCHC RDW Std Deviation RDW Coeff of Delisa Plt Count MPV Immature Gran % (Auto) Neut % (Auto) Lymph % (Auto) [place] % (Auto) Eos % (Auto) Baso % (Auto) Absolute Neuts (auto) Absolute Lymphs (auto) Nucleated RBC % Differential Comment PT INR APTT Sodium 134 L Potassium 3.5 Chloride 101 Carbon Dioxide 25.0 Anion Gap 8 BUN 11 Creatinine 1.56 H Estim Creat Clear Calc 40.30 Est GFR (MDRD) Af Amer 56 L Est GFR (MDRD) Non-Af 46 L BUN/Creatinine Ratio 7.1 L Glucose 137 H Lactic Acid 3.7 H* Calcium 9.3 Total Bilirubin 1.20 H AST 42 H ALT 37 Alkaline Phosphatase 85 Troponin I < 0.015 Total Protein 7.8 Albumin 4.0 Globulin 3.8 Albumin/Globulin Ratio 1.1 Urine Color Urine Clarity Urine pH Ur Specific [place] Urine Protein Urine Glucose (UA) Urine Ketones Urine Occult Blood Urine Nitrite Urine Bilirubin Urine Urobilinogen Ur Leukocyte Esterase Urine RBC Urine WBC Ur Squamous Epith Cells Urine Bacteria Urine Mucus POC Glucose 11/01/19 11/01/19 05:00 05:00 WBC 9.9 RBC 4.44 L Hgb 13.6 Hct 40.7 MCV 91.7 MCH 30.6 MCHC 33.4 RDW Std Deviation 43.2 RDW Coeff of Delisa 13.0 Plt Count 183 MPV 9.2 Immature Gran % (Auto) 0.300 Neut % (Auto) 87.5 H Lymph % (Auto) 6.0 L [place] % (Auto) 4.7 Eos % (Auto) 1.1 Baso % (Auto) 0.4 Absolute Neuts (auto) 8.7 H Absolute Lymphs (auto) 0.60 L Nucleated RBC % 0 Differential Comment PT 14.5 INR 1.1 APTT 32.4 Sodium Potassium Chloride Carbon Dioxide Anion Gap BUN Creatinine Estim Creat Clear Calc Est GFR (MDRD) Af Amer Est GFR (MDRD) Non-Af BUN/Creatinine Ratio Glucose Lactic Acid Calcium Total Bilirubin AST ALT Alkaline Phosphatase Troponin I Total Protein Albumin Globulin Albumin/Globulin Ratio Urine Color Urine Clarity Urine pH Ur Specific [place] Urine Protein Urine Glucose (UA) Urine Ketones Urine Occult Blood Urine Nitrite Urine Bilirubin Urine Urobilinogen Ur Leukocyte Esterase Urine RBC Urine WBC Ur Squamous Epith Cells Urine Bacteria Urine Mucus POC Glucose General: Alert, Oriented x3 Lungs: Clear to auscultation Cardiovascular: Regular rate, Regular Rhythm Capillary Refill: <3 seconds Peripheral Pulses: Normal Skin Color: [place] - Assessment/Plan Patient receiving IV fluids and is on Levophed, vitals appear stable Started on antibiotics, will continue on IV fluids, continue to monitor vitals.
--- NOTE | 2019-11-01 13:32 | PCM.CON.CC ---
Problem List (1) Pituitary adenoma Status: Resolved (2) Severe sepsis Status: Suspected (3) Hx of left breast biopsy Status: Resolved Comment: Gynecomastia only on biopsy 04/28/2019 (4) Hx of colonoscopy Status: Resolved (5) History of back surgery Status: Resolved Comment: L3& L4 Fusion (6) Hx of elbow surgery Status: Resolved Comment: Left (7) Arthritis Status: Chronic (8) Hx of heart artery stent Status: Chronic Comment: X6 (9) Low back problem Status: Chronic Reason for Consult Date of Consultation: 11/01/19 Reason for Consultation: Hypotension History of Present Illness: The patient is a 79 year old M, with past medical history listed below, who presented to [facility] on 11/01/2019 secondary to a one-week history of nausea, vomiting and diarrhea. Patient reportedly had had generalized weakness and shakiness. Patient stated he had a near syncopal event when sitting on the commode. Patient denied loss of consciousness, but did make it to the floor. Patient reportedly has had a fever at home. This was not accompanied by chest pain or shortness of breath. Patient has not had a significant cough or abdominal pain. In the ER, patient was given Zofran and Tylenol along with IV fluids. Patient's lactate was elevated, so he received 30 cc/kg IV fluid bolus. Patient was given empiric vancomycin and Zosyn and was given orders for the intensive care unit. Reportedly, prior to coming to the intensive care unit, patient was noted to be hypotensive. Patient had a central line placed and pressors were initiated. Patient feels subjectively improved prior to arriving to the intensive care unit. On my evaluation, patient states that he feels well. Patient states that he had a pituitary adenoma resected at [facility] on 07/24/2019. This was complicated by some postoperative bleeding leading to readmission. Patient then had to go to rehab and was finally discharged home in mid August. Reportedly, since that time, patient has had episodes of constipation and diarrhea. Patient states he will develop constipation and takes stool softeners with diarrhea. Patient has noted some issues with dizziness that gets worse with any standing. This is worse with being on the commode. Patient's reports some intermittent confusion. Review of systems otherwise negative from a constitutional, HEENT, respiratory, cardiovascular, GI, genitourinary, musculoskeletal, skin, neurologic, psychiatric and hematologic system unless stated above. Past Medical History Past Medical History (Chronic Problems): Chronic Problems (Last Reviewed 05/14/19 @ 14:49 by Juju Curtis) Arthritis (Chronic) Hx of heart artery stent (Chronic) X6 History of heart attack (Chronic) Low back problem (Chronic) Medical History: Medical History (Last Reviewed 05/14/19 @ 14:49 by Juju Curtis) Left breast lump (Acute) N63.20 Abnormal ultrasound of breast (Acute) R92.8 Arthritis (Chronic) M19.90 History of heart attack (Chronic) I25.2 Low back problem (Acute) M53.9 Fatigue (Acute) R53.83 Allergies No Known Allergies Allergy (Verified 10/24/19 10:23) Home Medications: Ambulatory Orders Medication Instructions Recorded Aspirin [Aspirin, Baby] 81 mg PO DAILY@0800 11/17/15 Hydrochlorothiazide 12.5 mg PO DAILY 11/17/15 [place]-3 Fatty Acids [Fish Oil] 1,000 mg PO DAILY 11/17/15 atenolol 25 mg tablet 25 mg PO DAILY 04/24/19 cholecalciferol (vitamin D3) 50 2,000 unit PO DAILY 04/24/19 mcg (2,000 unit) capsule tamsulosin 0.4 mg capsule 0.4 mg PO DAILY cap 04/24/19 trazodone 50 mg tablet 50 mg PO QHS 04/24/19 Escitalopram Oxalate 10 mg PO DAILY 10/24/19 Finasteride 5 mg PO DAILY 10/24/19 Levothyroxine [Synthroid] 100 mcg PO DAILY 10/24/19 Losartan Potassium [Cozaar] 25 mg PO DAILY 10/24/19 Metformin HCl [Metformin HCl ER] 500 mg PO DAILY 10/24/19 Azelastine HCl [Astelin] 2 spray NARES 4X/DAY 11/01/19 Docusate Sodium [Colace] 100 mg PO BID PRN 11/01/19 Nitroglycerin 2.5 mg PO PRN PRN 11/01/19 Surgical History: Surgical History (Last Reviewed 05/14/19 @ 14:49 by Juju Curtis) Hx of left breast biopsy (Acute) Z98.890 04/28/2019 Hx of colonoscopy (Acute) Z98.890 History of back surgery (Chronic) Z98.890 L3& L4 Fusion Hx of elbow surgery (Chronic) Z98.890 Left Hx of heart artery stent (Chronic) Z95.5 X6 Lives: Spouse/ Significant Other Smoking Status: Never smoker Review of Systems Comment: See HPI Patient Problems: Active and Suspected Problems (Last Reviewed 05/14/19 @ 14:49 by Juju Curtis) Severe sepsis (Suspected) Objective: Previous imaging was reviewed. Current chest x-ray is clear with central line in appropriate position - Physical Exam Vitals/I&O's: Vital Signs Temp Pulse Resp BP Pulse Ox 37.3 C H 68 21 H 130/50 H 97 11/01/19 12:00 11/01/19 13:00 11/01/19 13:00 11/01/19 13:00 11/01/19 13:00 Oxygen Flow Rate (L/min) 2 Oxygen Delivery Method Nasal Cannula Weight: 90.5 kg Body Mass Index (BMI) 31.2 Intake and Output for Last 24 Hours 10/30/19 10/31/19 11/01/19 23:59 23:59 23:59 Intake Total 3782.69 / 3782.69 Output Total 900 / 900 Balance 2882.69 / 2882.69 General: Alert, Oriented x3, Cooperative, No apparent distress, - - Appears stated age HEENT: PERRLA, EOMI, Normocephalic, - - No scleral icterus or injection Oral: Moist Mucosa, No Gingival or Mucosal Lesions/ Ulcerations Neck: Supple, No JVD, No Nodes, Trachea Midline Lungs: Clear to auscultation, Normal air movement, No rhonchi, No wheeze, No rales Cardiovascular: Regular rate, Regular Rhythm, Normal S1, Normal S2, No murmurs, No rub noted, No Gallop Abdomen: Bowel Sounds Present, Soft, Non Tender, Non-Distended Extremities: No clubbing, No cyanosis, No edema, Capillary Refill Less than 3 Seconds Skin: No rashes, No breakdown Musculoskeletal: No Tenderness to Palpation of Joints or Extremities Lymphatic: No Cervical, Supraclavicular, or Inguinal Adenopathy Neurological: Cranial nerves II-XII grossly intact, Neuro grossly intact, Motor Exam 5/5 strength throughout Psych/Mental Status: Alert and oriented to time, place, person, mood and affect Microbiology Past 72 Hours 11/01/19 06:00 Mucosa - Nose Influenza Types A,B Direct FA (CRISSY) - Final Laboratory Results 11/01/19 05:00: WBC 9.9, RBC 4.44 L, Hgb 13.6, Hct 40.7, MCV 91.7, MCH 30.6, MCHC 33.4, RDW Std Deviation 43.2, RDW Coeff of Delisa 13.0, Plt Count 183, MPV 9.2, Immature Gran % (Auto) 0.300, Neut % (Auto) 87.5 H, Lymph % (Auto) 6.0 L, [place] % (Auto) 4.7, Eos % (Auto) 1.1, Baso % (Auto) 0.4, Absolute Neuts (auto) 8.7 H, Absolute Lymphs (auto) 0.60 L, Nucleated RBC % 0, Differential Comment 11/01/19 05:00: PT 14.5, INR 1.1, APTT 32.4 11/01/19 05:00: Sodium 134 L, Potassium 3.5, Chloride 101, Carbon Dioxide 25.0, Anion Gap 8, BUN 11, Creatinine 1.56 H, Estim Creat Clear Calc 40.30, Est GFR (MDRD) Af Amer 56 L, Est GFR (MDRD) Non-Af 46 L, BUN/Creatinine Ratio 7.1 L, Glucose 137 H, Calcium 9.3, Total Bilirubin 1.20 H, AST 42 H, ALT 37, Alkaline Phosphatase 85, Total Protein 7.8, Albumin 4.0, Globulin 3.8, Albumin/Globulin Ratio 1.1 11/01/19 05:00: Lactic Acid 3.7 H* 11/01/19 05:00: Troponin I < 0.015 11/01/19 05:55: Urine Color Yellow, Urine Clarity Clear, Urine pH 6.0, Ur Specific [place] 1.010, Urine Protein 15 H, Urine Glucose (UA) Normal, Urine Ketones Negative, Urine Occult Blood Negative, Urine Nitrite Negative, Urine Bilirubin Negative, Urine Urobilinogen 4 H, Ur Leukocyte Esterase Negative, Urine RBC 0 SEEN, Urine WBC 0 SEEN, Ur Squamous Epith Cells 0 SEEN, Urine Bacteria 0 SEEN, Urine Mucus 0 SEEN 11/01/19 09:30: Lactic Acid 1.2 11/01/19 12:31: POC Glucose 145 H Current Medications Acetaminophen (Tylenol) 650 mg PO Q6H PRN PRN PRN Reason: Pain Score 1-10/Temp > 100.7 F Albuterol Sulfate (Ventolin Aerosols) 2.5 mg INHALATION Q2H PRN PRN PRN Reason: SOB/Wheezing Aspirin (Aspirin, Baby) 81 mg PO DAILY@0800 [facility] Dextrose (D50w Syringe) 0 gm IV X1 PRN; Protocol PRN Reason: Hypoglycemia Docusate Sodium (Colace) 100 mg PO BID PRN PRN Reason: stool softner Escitalopram Oxalate (Lexapro) 10 mg PO DAILY [facility] Finasteride (Proscar) 5 mg PO DAILY [facility] Glucagon () 1 mg IM .X1 PRN PRN Reason: Hypoglycemia Heparin Sodium (Porcine) (Heparin Na) 5,000 unit SC Q8 [facility] Sodium Chloride () 1,000 mls @ 150 mls/hr IV .Q6H40M [facility] Last Infusion: 11/01/19 11:15 Dose: 150 mls/hr Documented by: Norepinephrine Bitartrate 8 mg (/ Sodium Chloride) 250 mls @ 9.375 mls/hr CONT INF .[id number] [facility]; Protocol Last Titration: 11/01/19 13:00 Dose: 5 mcg/min, 9.4 mls/hr Documented by: Piperacillin Sod/Tazobactam (Sod 3.375 gm/ Sodium Chloride) 50 mls @ 12.5 mls/hr IV Q8 [facility] Vancomycin IV Pharmacy to Dose (1 ea/ Sodium Chloride) 500 mls @ 250 mls/hr IV X1 PRN; Protocol PRN Reason: Rx to Dose Vancomycin HCl 1,250 mg/ (Sodium Chloride) 275 mls @ 167 mls/hr IV Q24H [facility] Insulin Human Lispro (Humalog Kwikpen (Bkc)) 0 unit SC Q6 [facility]; Protocol Last Admin: 11/01/19 12:34 Dose: Not Given Documented by: Levothyroxine Sodium (Synthroid) 100 mcg PO DAILY@0600 [facility] Ondansetron HCl (Zofran) 4 mg IV Q6H PRN PRN PRN Reason: NAUSEA/VOMITING Tamsulosin HCl (Flomax) 0.4 mg PO DAILY [facility] Trazodone HCl (Desyrel) 50 mg PO QHS [facility] Clinical Impression(s) from Imaging Studies Chest X-Ray 11/01/19 04:58 IMPRESSION: 1. Limited inspiration with right basilar small atelectasis or infiltrate. 2. No CHF. at 0605 Reported and signed by: Jaren Alves MD Electronically Signed: Jaren Alves, at 6:04 EDT Tel , Service support , Chest X-Ray 11/01/19 08:10 IMPRESSION: A right-sided internal jugular venous catheter seen with the tip in the proximal portion of the superior vena cava. The remainder of the examination is unchanged. Electronically Signed: Luis Fontaine, at 8:36 EDT , Service support , Assessment/Plan Active and Suspected Problems (Last Reviewed 05/14/19 @ 14:49 by Juju Curtis) Severe sepsis (Suspected) RECOMMENDATIONS: 1. Consider head CT 2. Obtain random cortisol level 3. Continue antibiotics for 48 hours empirically 4. Await cultures/C. difficile IMPRESSIONS: 1. Hypotension Unclear if this truly represents infection or possible adrenal insufficiency. Patient has had a pituitary surgeries recently. Would recommend obtaining a random cortisol. Patient may require hydrocortisone versus Florinef as this may represent relative adrenal insufficiency. We will continue pressors for now. 2. Diarrhea Reportedly has had intermittent episodes of diarrhea and constipation. Infectious work-up should be completed, but clinical suspicion for medication induced diarrhea. Patient does not have significant leukocytosis, abdominal pain or cramping reported. Nausea and vomiting could be secondary to orthostatic type symptoms. 3. Acute on chronic kidney disease stage III Baseline creatinine appears to be approximately 1.2. Patient is elevated slightly. Clinical suspicion for prerenal etiology associated with hypotension. No indication for renal replacement therapy at this time. 4. Hypothyroidism/diabetes/BPH/depression/allergic rhinitis Complicates care, management, recovery and prognosis. Monitor blood sugars intermittently, but p.o. intake is variable. Okay to continue with baseline thyroid medication. TIME: 33 minutes critical care time spent addressing patient's hypotension, diarrhea, review of all data and collaboration with care team (1 PM to 2:30 PM) 9xxxx: [id number] Critical care first hour
--- NOTE | 2019-11-01 14:24 | CT_ITS ---
STUDY: CT BRAIN WITHOUT CONTRAST REASON FOR EXAM: Male, 79 years old. FALL, PITUITARY TUMOR REMOVED 07/2019 RADIATION DOSAGE (If Supplied By Facility): CTDIvol = ( 60.81 ) mGy, DLP = ( 2134.16 ) mGycm TECHNIQUE: Transaxial CT imaging of the brain was performed without administration of intravenous contrast material. Individualized dose optimization techniques were used for this CT. COMPARISON: Comparison is made with prior examination of October 24, 2019. FINDINGS: Normal soft tissue structures. Minimal residual bilateral frontal subdural hematomas. There is been slight improvement as compared to prior study. There is mild cerebral atrophy with widening of the extra-axial spaces and ventricular dilatation. There are areas of decreased attenuation within the white matter tracts of the supratentorial brain, consistent with microvascular disease changes. Normal basal ganglia and thalami. Normal brainstem. There is mild cerebellar atrophy. Prominence of the cisterna magna. There is no intracranial hemorrhage. There are no findings of an acute ischemic infarction. Mucosal thickening of the right maxillary sinus. CT/Brain/Head without Contrast IMPRESSION: Chronic involutional changes of the brain. Further improvement in the bilateral frontal subdural hematomas. No significant mass effect is seen. Electronically Signed: Luis Fontaine, at 15:38 EDT , Service support ,
[2019-11-01] MEDS: TITRATION PARAMETER CHANGE 1 EACH IV (16:30)
[2019-11-01] MEDS: proCHLORPERazine 10 MG/2 ML Vial 5 MG IV (16:30)
--- NOTE | 2019-11-01 16:38 | RAD_ITS ---
STUDY: X-RAY - ABDOMEN/PELVIS REASON FOR EXAM: Male, 79 years old. abdominal pain and vomiting TECHNIQUE: Two AP supine views of the abdomen and pelvis. COMPARISON: None. FINDINGS: Normal visualized lung bases. There is an unremarkable bowel gas pattern. There is no demonstrated free abdominal air. The visualized liver, spleen and kidneys are grossly normal in size and morphology. Normal soft tissue structures. L1 compression fracture. RAD/Abdomen Single View (Portable) IMPRESSION: Normal bowel gas pattern. Electronically Signed: Agustín Loyd MD at 17:12 EDT Tel , Service support ,
[2019-11-01] MEDS: Hydrocortisone Sod Succinate 100 MG/2 ML Vial IV ×2 (17:45→21:21)
[2019-11-01 18:25] LABS: Bedside Glucose 134 mg/dL (70-110)
[2019-11-01] MEDS: Insulin Lispro 100 UNIT/ML INSULN.PEN SC (23:11)
[2019-11-01 23:15] LABS: Bedside Glucose 208 mg/dL (70-110)
[2019-11-02] VITALS (29 sets, daily range): BP systolic 105–155; BP diastolic 43–89; PULSE 39–82; RESP 12–22; TEMP 36.4–37.1; O2SAT 93–100
[2019-11-02] MEDS: 0.9% Normal Saline 1,000 ML 150 ML IV (04:04)
[2019-11-02 04:16] LABS: Absolute Lymphocyte Count 0.43 X10^3/uL (0.83-4.51); Absolute Neutrophil Count 7.6 X10^3/uL (2.0-7.7); Basophil# 0.02 X10^3/uL; Basophil% 0.2 % (0-1); Hematocrit 34.7 % (40-54); Hemoglobin 11.6 g/dL (13.0-16.5); Lymphocyte # 0.43 X10^3/ul (4.0); Lymphocyte % 5.2 % (19-41); Mean Corp Hgb Conc 33.4 g/dL (32-36); Mean Corpuscular Volume 92.8 fL (80-94); Mean Platelet Vol. 9.1 fl (6.2-12.0); Monocyte# 0.15 X10^3/uL; Monocyte% 1.8 % (0-10); NRBC Flagged by Analyzer 0 % (0-5); Neutrophil # 7.56 X10^3/uL (2.7-7.7); Neutrophil % 92.1 % (47-70); POSITIVE DIFFERENTIAL YES; POSITIVE MORPHOLOGY YES; Platelet Count 152 K/mm3 (150-450); RBC Distribution Width CV 13.1 % (11.6-14.6); RBC Distribution Width SD 44.5 fl (35.1-43.9); Red Blood Count 3.74 M/mm3 (4.6-6.2); White Blood Count 8.2 K/mm3 (4.4-11.0)
[2019-11-02 04:30] LABS: Differential Indicated SCAN CRITERIA MET
[2019-11-02 05:16] LABS: ALB/GLOB Ratio 0.8 RATIO (0.9-2.4); AST(SGOT) 37 U/L (15-37); Alanine Aminotransfer ALT/SGPT 27 U/L (16-61); Albumin, Serum 2.8 g/dL (3.2-5.0); Alkaline Phosphatase 62 U/L (45-117); Anion Gap 5 (5-15); BUN 8 mg/dL (7-18); BUN/Creat Ratio 6.9 RATIO (10-20); Calcium,Total 8.3 mg/dL (8.5-10.1); Chloride 117 mmol/L (98-107); Creatinine, Serum 1.16 mg/dL (0.70-1.30); EST Glomerular Filtration Rate 65 mL/min (>60); Est Glom Filt Rate - Afr Amer 78 mL/min (>60); Estimated Creatinine Clearance 49.07 ml/min; Globulin 3.5 g/dL (2.2-4.2); Glucose 159 mg/dL (74-106); Potassium 3.7 mmol/L (3.5-5.1); Protein, Total 6.3 g/dL (6.4-8.2); Sodium Level 146 mmol/L (136-145)
[2019-11-02] MEDS: Insulin Lispro 100 UNIT/ML INSULN.PEN SC (05:24)
[2019-11-02] MEDS: Hydrocortisone Sod Succinate 100 MG/2 ML Vial IV ×3 (05:24→22:20)
[2019-11-02] MEDS: Levothyroxine 100 MCG Tablet PO (05:24)
--- NOTE | 2019-11-02 07:32 | PN_ITS ---
Subjective: Patient doing well this morning. No diarrhea has been reported. Patient was able to be taken off of Levophed shortly after initiation of hydrocortisone. Patient with no complaints at this time. Objective: KUB was within normal limits. CT scan showed improvement in frontal subdural hematomas. General: Alert, Oriented x3, Cooperative, No apparent distress, Well developed, Well nourished, - - More interactive today. Obese. HEENT: Atraumatic, PERRLA, EOMI, Normocephalic, - Oral: Moist Mucosa - No scleral icterus or injection, No Gingival or Mucosal Lesions/ Ulcerations Neck: Supple, No JVD, No Nodes, Trachea Midline Lungs: Clear to auscultation, Normal air movement, No rhonchi, No wheeze, No rales Cardiovascular: Regular Rhythm, Normal S1, Normal S2, No murmurs, Bradycardic, No rub noted, No Gallop Abdomen: Bowel Sounds Present, Soft, Non Tender, Non-Distended, Obese Extremities: No clubbing, No cyanosis, No edema, Capillary Refill Less than 3 Seconds Skin: No rashes, No breakdown Musculoskeletal: No Tenderness to Palpation of Joints or Extremities Lymphatic: No Cervical, Supraclavicular, or Inguinal Adenopathy Neurological: Cranial nerves II-XII grossly intact, Neuro grossly intact, Motor Exam 5/5 strength throughout Psych/Mental Status: Alert and oriented to time, place, person, mood and affect Vital Signs Temp Pulse Resp BP Pulse Ox 37.1 C 54 L 17 123/50 H 97 11/02/19 04:00 11/02/19 06:00 11/02/19 06:00 11/02/19 06:00 11/02/19 06:00 Oxygen Flow Rate (L/min) 2 Oxygen Delivery Method Room Air Weight: 88.5 kg Body Mass Index (BMI) 31.2 Intake and Output for Last 24 Hours 10/31/19 11/01/19 11/02/19 23:59 23:59 23:59 Intake Total 5502.01 / 5511.41 1066.46 / 1066.46 Output Total 2625 / 2625 600 / 600 Balance 2877.01 / 2886.41 466.46 / 466.46 Labs (Last 48 Hours) 11/01/19 11/01/19 11/01/19 05:00 05:00 05:00 WBC 9.9 RBC 4.44 L Hgb 13.6 Hct 40.7 MCV 91.7 MCH 30.6 MCHC 33.4 RDW Std Deviation 43.2 RDW Coeff of Delisa 13.0 Plt Count 183 MPV 9.2 Immature Gran % (Auto) 0.300 Neut % (Auto) 87.5 H Lymph % (Auto) 6.0 L [place] % (Auto) 4.7 Eos % (Auto) 1.1 Baso % (Auto) 0.4 Absolute Neuts (auto) 8.7 H Absolute Lymphs (auto) 0.60 L Nucleated RBC % 0 Differential Comment PT 14.5 INR 1.1 APTT 32.4 Sodium 134 L Potassium 3.5 Chloride 101 Carbon Dioxide 25.0 Anion Gap 8 BUN 11 Creatinine 1.56 H Estim Creat Clear Calc 40.30 Est GFR (MDRD) Af Amer 56 L Est GFR (MDRD) Non-Af 46 L BUN/Creatinine Ratio 7.1 L Glucose 137 H Lactic Acid Calcium 9.3 Total Bilirubin 1.20 H AST 42 H ALT 37 Alkaline Phosphatase 85 Troponin I Total Protein 7.8 Albumin 4.0 Globulin 3.8 Albumin/Globulin Ratio 1.1 Cortisol Urine Color Urine Clarity Urine pH Ur Specific [place] Urine Protein Urine Glucose (UA) Urine Ketones Urine Occult Blood Urine Nitrite Urine Bilirubin Urine Urobilinogen Ur Leukocyte Esterase Urine RBC Urine WBC Ur Squamous Epith Cells Urine Bacteria Urine Mucus POC Glucose 11/01/19 11/01/19 11/01/19 05:00 05:00 05:55 WBC RBC Hgb Hct MCV MCH MCHC RDW Std Deviation RDW Coeff of Delisa Plt Count MPV Immature Gran % (Auto) Neut % (Auto) Lymph % (Auto) [place] % (Auto) Eos % (Auto) Baso % (Auto) Absolute Neuts (auto) Absolute Lymphs (auto) Nucleated RBC % Differential Comment PT INR APTT Sodium Potassium Chloride Carbon Dioxide Anion Gap BUN Creatinine Estim Creat Clear Calc Est GFR (MDRD) Af Amer Est GFR (MDRD) Non-Af BUN/Creatinine Ratio Glucose Lactic Acid 3.7 H* Calcium Total Bilirubin AST ALT Alkaline Phosphatase Troponin I < 0.015 Total Protein Albumin Globulin Albumin/Globulin Ratio Cortisol Urine Color Yellow Urine Clarity Clear Urine pH 6.0 Ur Specific [place] 1.010 Urine Protein 15 H Urine Glucose (UA) Normal Urine Ketones Negative Urine Occult Blood Negative Urine Nitrite Negative Urine Bilirubin Negative Urine Urobilinogen 4 H Ur Leukocyte Esterase Negative Urine RBC 0 SEEN Urine WBC 0 SEEN Ur Squamous Epith Cells 0 SEEN Urine Bacteria 0 SEEN Urine Mucus 0 SEEN POC Glucose 11/01/19 11/01/19 11/01/19 09:30 12:31 14:50 WBC RBC Hgb Hct MCV MCH MCHC RDW Std Deviation RDW Coeff of Delisa Plt Count MPV Immature Gran % (Auto) Neut % (Auto) Lymph % (Auto) [place] % (Auto) Eos % (Auto) Baso % (Auto) Absolute Neuts (auto) Absolute Lymphs (auto) Nucleated RBC % Differential Comment PT INR APTT Sodium Potassium Chloride Carbon Dioxide Anion Gap BUN Creatinine Estim Creat Clear Calc Est GFR (MDRD) Af Amer Est GFR (MDRD) Non-Af BUN/Creatinine Ratio Glucose Lactic Acid 1.2 Calcium Total Bilirubin AST ALT Alkaline Phosphatase Troponin I Total Protein Albumin Globulin Albumin/Globulin Ratio Cortisol 12.10 Urine Color Urine Clarity Urine pH Ur Specific [place] Urine Protein Urine Glucose (UA) Urine Ketones Urine Occult Blood Urine Nitrite Urine Bilirubin Urine Urobilinogen Ur Leukocyte Esterase Urine RBC Urine WBC Ur Squamous Epith Cells Urine Bacteria Urine Mucus POC Glucose 145 H 11/01/19 11/01/19 11/02/19 18:22 23:08 04:00 WBC 8.2 RBC 3.74 L Hgb 11.6 L Hct 34.7 L MCV 92.8 MCH 31.0 MCHC 33.4 RDW Std Deviation 44.5 H RDW Coeff of Delisa 13.1 Plt Count 152 MPV 9.1 Immature Gran % (Auto) 0.700 Neut % (Auto) 92.1 H Lymph % (Auto) 5.2 L [place] % (Auto) 1.8 Eos % (Auto) 0.0 Baso % (Auto) 0.2 Absolute Neuts (auto) 7.6 Absolute Lymphs (auto) 0.43 L Nucleated RBC % 0 Differential Comment PT INR APTT Sodium Potassium Chloride Carbon Dioxide Anion Gap BUN Creatinine Estim Creat Clear Calc Est GFR (MDRD) Af Amer Est GFR (MDRD) Non-Af BUN/Creatinine Ratio Glucose Lactic Acid Calcium Total Bilirubin AST ALT Alkaline Phosphatase Troponin I Total Protein Albumin Globulin Albumin/Globulin Ratio Cortisol Urine Color Urine Clarity Urine pH Ur Specific [place] Urine Protein Urine Glucose (UA) Urine Ketones Urine Occult Blood Urine Nitrite Urine Bilirubin Urine Urobilinogen Ur Leukocyte Esterase Urine RBC Urine WBC Ur Squamous Epith Cells Urine Bacteria Urine Mucus POC Glucose 134 H 208 H 11/02/19 04:00 WBC RBC Hgb Hct MCV MCH MCHC RDW Std Deviation RDW Coeff of Delisa Plt Count MPV Immature Gran % (Auto) Neut % (Auto) Lymph % (Auto) [place] % (Auto) Eos % (Auto) Baso % (Auto) Absolute Neuts (auto) Absolute Lymphs (auto) Nucleated RBC % Differential Comment PT INR APTT Sodium 146 H Potassium 3.7 Chloride 117 H Carbon Dioxide 24.0 Anion Gap 5 BUN 8 Creatinine 1.16 Estim Creat Clear Calc 49.07 Est GFR (MDRD) Af Amer 78 Est GFR (MDRD) Non-Af 65 BUN/Creatinine Ratio 6.9 L Glucose 159 H Lactic Acid Calcium 8.3 L Total Bilirubin 0.80 AST 37 ALT 27 Alkaline Phosphatase 62 Troponin I Total Protein 6.3 L Albumin 2.8 L Globulin 3.5 Albumin/Globulin Ratio 0.8 L Cortisol Urine Color Urine Clarity Urine pH Ur Specific [place] Urine Protein Urine Glucose (UA) Urine Ketones Urine Occult Blood Urine Nitrite Urine Bilirubin Urine Urobilinogen Ur Leukocyte Esterase Urine RBC Urine WBC Ur Squamous Epith Cells Urine Bacteria Urine Mucus POC Glucose Microbiology 11/01/19 06:00 Mucosa - Nose Influenza Types A,B Direct FA (CRISSY) - Final Clinical Impression(s) from Imaging Studies Chest X-Ray 11/01/19 08:10 IMPRESSION: A right-sided internal jugular venous catheter seen with the tip in the proximal portion of the superior vena cava. The remainder of the examination is unchanged. Electronically Signed: Luis Fontaine, at 8:36 EDT , Service support , Brain CT 11/01/19 14:24 IMPRESSION: Chronic involutional changes of the brain. Further improvement in the bilateral frontal subdural hematomas. No significant mass effect is seen. Electronically Signed: Luis Fontaine, at 15:38 EDT , Service support , KUB X-Ray 11/01/19 16:38 IMPRESSION: Normal bowel gas pattern. Electronically Signed: Agustín Loyd MD at 17:12 EDT Tel , Service support , Medical Necessity - Tobacco Use Smoking Status: Never smoker Tobacco Use: Non-smoker Assessment/Plan All Active Problems (Last Reviewed 05/14/19 @ 14:49 by Juju Curtis) Pituitary adenoma (Resolved) Hx of left breast biopsy (Resolved) Left breast lump (Acute) Abnormal ultrasound of breast (Acute) Hx of colonoscopy (Resolved) History of back surgery (Resolved) Hx of elbow surgery (Resolved) Fatigue (Acute) RECOMMENDATIONS: 1. Obtain endocrine consult 2. Wean hydrocortisone per endocrine recommendations 3. Discontinue antibiotics 4. Okay to discontinue contact precautions IMPRESSIONS: 1. 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 Patient is responded very well to hydrocortisone therapy. Will discontinue antibiotics. Would recommend obtaining endocrine consult for further work-up and recommendations for weaning off of hydrocortisone. 2. Diarrhea Resolved. Reportedly has had intermittent episodes of diarrhea and constipation. Clinical suspicion for medication induced diarrhea. Patient does not have significant leukocytosis, abdominal pain or cramping reported. Nausea and vomiting could be secondary to orthostatic type symptoms. 3. Acute on chronic kidney disease stage III Baseline creatinine appears to be approximately 1.2. Patient is elevated slightly. Clinical suspicion for prerenal etiology associated with hypotension. No indication for renal replacement therapy at this time. 4. Hypothyroidism/diabetes/BPH/depression/allergic rhinitis Complicates care, management, recovery and prognosis. Monitor blood sugars intermittently, but p.o. intake is variable. Okay to continue with baseline thyroid medication. Addendum 11:53 AM: Discussed with Dr. Cheema by phone. 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 It is okay for the patient to go to the floor from her perspective. She is recommended that he be continued on IV hydrocortisone for another 24 hours. Tomorrow, patient can be transition to hydrocortisone 30 mg in the morni ng and 20 mg in the evening. She will follow-up with him as an outpatient for further optimization. Patient had demonstrated other axis depreciation on testing prior to the surgery. Inpatient E&M: [id number] [facility]
[2019-11-02] MEDS: Escitalopram Oxalate 10 MG Tablet PO (09:34)
[2019-11-02] MEDS: Finasteride 5 MG Tablet PO (09:34)
[2019-11-02] MEDS: Tamsulosin HCl 0.4 MG Capsule PO (09:34)
[2019-11-02] MEDS: Pantoprazole Sodium 40 MG Tablet PO (09:34)
[2019-11-02] MEDS: Aspirin 81 MG TAB.CHEW PO (09:34)
[2019-11-02] MEDS: Menthol/Lanolin/Calamine/Znox 113 GM Tube 1 APPLIC TOPICAL ×2 (09:38→22:27)
[2019-11-02 10:50] LABS: Bedside Glucose 200 mg/dL (70-110)
--- NOTE | 2019-11-02 12:35 | CON.PCM_ITS ---
- Consult Date of Consult: 11/02/19 - Reason for Consult 79 year old man admitted for presumed sepsis. 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 Low T3 and low T4 with normal TSH LH of 2.1 with total testosterone of 42 and free T of 0.79 Patient placed on levothyroxine. Pituitary surgery at [facility] on 07-24-2019. No glucocorticoids at discharge. Patient now presents with one week history of nausea, vomiting and diarrhea. He was hypotensive and lactic acid level elevated. Random cortisol was 12.2. The patient responded well to intravenous solucortef with improved blood pressure and decreased symptoms. Assessment: Hypopituitarism s/p surgery for pituitary macroadenoma. Thyroid, gonadal and now adrenal axis. Plan: Change to oral steroids tomorrow. Hydrocortisone 30 mg am and 20 mg pm. Over time wean to dose of 10 mg bid. I will follow with you and follow the patient after discharge. Daniel Cheema M.D. [facility] [address] [place] [address] tel: [phone] fax: [phone]
--- NOTE | 2019-11-02 13:35 | PCM.PN.HOSP ---
Patient Problems: Active and Suspected Problems (Last Reviewed 05/14/19 @ 14:49 by Juju Curtis) Severe sepsis (Suspected) Reason for Visit: Follow-up on septic shock Subjective: Patient was seen and examined. He feels improved. Denies any new complaints. Objective: Physical exam: General: Alert, Oriented x3, Cooperative, No apparent distress HEENT: Atraumatic, PERRLA, EOMI, Normocephalic Oral: Dry Mucosa Neck: Supple Lungs: Clear to auscultation, Normal air movement Cardiovascular: Regular rate, Regular Rhythm, Normal S1, Normal S2, No murmurs Abdomen: Bowel Sounds Present, Soft, Non Tender, Non-Distended, No Hepato-splenomegaly Extremities: No edema Skin: No rashes, No breakdown Musculoskeletal: No Tenderness to Palpation of Joints or Extremities Lymphatic: No Cervical, Supraclavicular, or Inguinal Adenopathy Neurological: Cranial nerves II-XII grossly intact, Neuro grossly intact Psych/Mental Status: Normal Affect, Appropriate Vitals/I&O's: Vital Signs Temp Pulse Resp BP Pulse Ox 98.4 F 65 16 115/45 L 96 11/02/19 12:00 11/02/19 12:00 11/02/19 12:00 11/02/19 12:00 11/02/19 12:00 Oxygen Flow Rate (L/min) 2 Oxygen Delivery Method Room Air Weight: 88.5 kg Body Mass Index (BMI) 31.2 Intake and Output for Last 24 Hours 10/31/19 11/01/19 11/02/19 23:59 23:59 23:59 Intake Total 5502.01 / 5511.41 2516.46 / 2516.46 Output Total 2625 / 2625 1150 / 1150 Balance 2877.01 / 2886.41 1366.46 / 1366.46 Microbiology Past 72 Hours 11/01/19 06:00 Mucosa - Nose Influenza Types A,B Direct FA (CRISSY) - Final Laboratory Results 11/01/19 14:50: Cortisol 12.10 11/01/19 18:22: POC Glucose 134 H 11/01/19 23:08: POC Glucose 208 H 11/02/19 04:00: WBC 8.2, RBC 3.74 L, Hgb 11.6 L, Hct 34.7 L, MCV 92.8, MCH 31.0, MCHC 33.4, RDW Std Deviation 44.5 H, RDW Coeff of Delisa 13.1, Plt Count 152, MPV 9.1, Immature Gran % (Auto) 0.700, Neut % (Auto) 92.1 H, Lymph % (Auto) 5.2 L, Grainger % (Auto) 1.8, Eos % (Auto) 0.0, Baso % (Auto) 0.2, Absolute Neuts (auto) 7.6, Absolute Lymphs (auto) 0.43 L, Nucleated RBC % 0, Differential Comment 11/02/19 04:00: Sodium 146 H, Potassium 3.7, Chloride 117 H, Carbon Dioxide 24.0, Anion Gap 5, BUN 8, Creatinine 1.16, Estim Creat Clear Calc 49.07, Est GFR (MDRD) Af Amer 78, Est GFR (MDRD) Non-Af 65, BUN/Creatinine Ratio 6.9 L, Glucose 159 H, Calcium 8.3 L, Total Bilirubin 0.80, AST 37, ALT 27, Alkaline Phosphatase 62, Total Protein 6.3 L, Albumin 2.8 L, Globulin 3.5, Albumin/Globulin Ratio 0.8 L 11/02/19 10:45: POC Glucose 200 H Current Medications Acetaminophen (Tylenol) 650 mg PO Q6H PRN PRN PRN Reason: Pain Score 1-10/Temp > 100.7 F Albuterol Sulfate (Ventolin Aerosols) 2.5 mg INHALATION Q2H PRN PRN PRN Reason: SOB/Wheezing Aspirin (Aspirin, Baby) 81 mg PO DAILY@0800 [facility] Last Admin: 11/02/19 09:34 Dose: 81 mg Documented by: Calamine/Phenol (Calmoseptine Ointment) 1 applic TOPICAL BID [facility]; Protocol Last Admin: 11/02/19 09:38 Dose: 1 applicatio Documented by: Dextrose (D50w Syringe) 0 gm IV X1 PRN; Protocol PRN Reason: Hypoglycemia Docusate Sodium (Colace) 100 mg PO BID PRN PRN Reason: stool softner Escitalopram Oxalate (Lexapro) 10 mg PO DAILY [facility] Last Admin: 11/02/19 09:34 Dose: 10 mg Documented by: Finasteride (Proscar) 5 mg PO DAILY [facility] Last Admin: 11/02/19 09:34 Dose: 5 mg Documented by: Glucagon () 1 mg IM .X1 PRN PRN Reason: Hypoglycemia Hydrocortisone Sodium Succinate (Solu-Cortef) 100 mg IV Q8 [facility] Last Admin: 11/02/19 05:24 Dose: 100 mg Documented by: Insulin Human Lispro (Humalog Kwikpen (Bkc)) 0 unit SC ACHS [facility]; Protocol Last Admin: 11/02/19 11:23 Dose: Not Given Documented by: Levothyroxine Sodium (Synthroid) 100 mcg PO DAILY@0600 [facility] Last Admin: 11/02/19 05:24 Dose: 100 mcg Documented by: Ondansetron HCl (Zofran) 4 mg IV Q6H PRN PRN PRN Reason: NAUSEA/VOMITING Pantoprazole Sodium (Protonix) 40 mg PO DAILY [facility] Last Admin: 11/02/19 09:34 Dose: 40 mg Documented by: Tamsulosin HCl (Flomax) 0.4 mg PO DAILY [facility] Last Admin: 11/02/19 09:34 Dose: 0.4 mg Documented by: Trazodone HCl (Desyrel) 50 mg PO QHS [facility] Last Admin: 11/01/19 21:21 Dose: Not Given Documented by: STROKE Vital Signs/Narrative: Vital Signs Temp Pulse Resp BP BP Pulse Ox 11/02/19 12:00 98.4 F 65 16 115/45 L 96 11/02/19 11:00 58 L 22 H 124/50 H 97 11/02/19 10:00 59 L 12 131/57 H 97 Medical Necessity - Tobacco Use Smoking Status: Never smoker Tobacco Use: Non-smoker Assessment/Plan All Active Problems (Last Reviewed 05/14/19 @ 14:49 by Juju Curtis) Pituitary adenoma (Resolved) Hx of left breast biopsy (Resolved) Left breast lump (Acute) Abnormal ultrasound of breast (Acute) Hx of colonoscopy (Resolved) History of back surgery (Resolved) Hx of elbow surgery (Resolved) Fatigue (Acute) 79 year old M with PMHx of pituitary adenoma s/p surgery in July 2019, who follows with neurosurgery, hypertension, history of CAD status post VT who comes in after a fall and complaints of dizziness. 1. Septic shock likely secondary to pneumonia in the presence of relative adrenal insufficiency. History of recent gastroenteritis but none since being here. Influenza screen negative. Blood cultures are pending... Will recommend empiric antibiotics pending results of blood cultures Will follow-up on blood cultures, urine cultures 2. H/o recent pituitary adenoma resection, random cortisol level is normal On hydrocortisone IV, will continue same and switch to oral from tomorrow 3. H/o syncope and fall, CT of the brain shows no acute changes, improvement in bilateral frontal hematomas 4. Hypertension, home meds on hold now, will still monitor off anti-hypertensives Possible resumption in am 5. Type 2 DM, home metformin on hold, Blood sugars are elevated, continue on blood glucose with medium scale ISS 6. Hypothyroidism, continue on levothyroxine 7. Anxiety/depression, continue on trazodone/Lexapro 8. DVT PPx- Heparin SC Inpatient E&M: 12118 Subs Hosp L2
[2019-11-02 17:01] LABS: Bedside Glucose 154 mg/dL (70-110)
[2019-11-02] MEDS: traZODone 50 MG Tablet PO (22:20)
[2019-11-02] MEDS: 0.9% Saline Lock 10 ML Syringe IV ×2 (22:20→22:27)
[2019-11-02 22:46] LABS: Bedside Glucose 140 mg/dL (70-110)
[2019-11-03] VITALS (9 sets, daily range): BP systolic 123–155; BP diastolic 60–77; PULSE 37–75; RESP 16–18; TEMP 36.4–36.7; O2SAT 96–97
[2019-11-03] MEDS: Levothyroxine 100 MCG Tablet PO (05:48)
[2019-11-03] MEDS: Hydrocortisone Sod Succinate 100 MG/2 ML Vial IV (05:48)
[2019-11-03] MEDS: 0.9% Saline Lock 10 ML Syringe IV (05:49)
[2019-11-03 06:51] LABS: Bedside Glucose 142 mg/dL (70-110)
[2019-11-03 07:40] LABS: Absolute Lymphocyte Count 0.82 X10^3/uL (0.83-4.51); Absolute Neutrophil Count 7.2 X10^3/uL (2.0-7.7); Basophil# 0.01 X10^3/uL; Basophil% 0.1 % (0-1); Eosinophil# 0.01 X10^3/uL; Eosinophils% 0.1 % (0-5); Hematocrit 33.2 % (40-54); Hemoglobin 10.8 g/dL (13.0-16.5); Lymphocyte # 0.82 X10^3/ul (4.0); Lymphocyte % 9.7 % (19-41); Mean Corp Hgb Conc 32.5 g/dL (32-36); Mean Corpuscular Hgb 30.3 pg (27.0-32.0); Mean Platelet Vol. 9.6 fl (6.2-12.0); Monocyte# 0.34 X10^3/uL; NRBC Flagged by Analyzer 0 % (0-5); Neutrophil # 7.24 X10^3/uL (2.7-7.7); Neutrophil % 85.4 % (47-70); Platelet Count 161 K/mm3 (150-450); RBC Distribution Width CV 13.6 % (11.6-14.6); RBC Distribution Width SD 46.2 fl (35.1-43.9); Red Blood Count 3.57 M/mm3 (4.6-6.2); White Blood Count 8.5 K/mm3 (4.4-11.0)
[2019-11-03] MEDS: Aspirin 81 MG TAB.CHEW PO (07:50)
[2019-11-03 08:12] LABS: Vancomycin, Trough Level 3.8 ug/mL (5.0-15.0)
--- NOTE | 2019-11-03 08:30 | PN_ITS ---
Subjective: Patient did well overnight. Patient feels that he is back to his baseline. No hemodynamic instability was reported and patient feels that his balance is improved since admission to the hospital. No fever or chills reported by the patient. General: Alert, Oriented x3, Cooperative, No apparent distress, Well developed, Well nourished, - - No conversational dyspnea. Obese. HEENT: Atraumatic, PERRLA, EOMI, Normocephalic, - - No scleral icterus or injection noted Oral: Moist Mucosa, No Gingival or Mucosal Lesions/ Ulcerations Neck: Supple, No JVD, No Nodes, Trachea Midline Lungs: Clear to auscultation, No rhonchi, No wheeze, No rales Cardiovascular: Normal S1, Normal S2, No murmurs, Bradycardic, No rub noted, No Gallop Abdomen: Bowel Sounds Present, Soft, Non Tender, Non-Distended Extremities: No clubbing, No cyanosis, No edema, Capillary Refill Less than 3 Seconds Skin: No rashes, No breakdown Musculoskeletal: No Tenderness to Palpation of Joints or Extremities Lymphatic: No Cervical, Supraclavicular, or Inguinal Adenopathy Neurological: Cranial nerves II-XII grossly intact, Neuro grossly intact, Motor Exam 5/5 strength throughout Psych/Mental Status: Alert and oriented to time, place, person, mood and affect Vital Signs Temp Pulse Resp BP Pulse Ox 36.4 C L 54 L 18 155/67 H 96 11/03/19 07:54 11/03/19 07:54 11/03/19 07:54 11/03/19 07:54 11/03/19 07:54 Oxygen Flow Rate (L/min) 2 Oxygen Delivery Method Room Air Weight: 90.5 kg Body Mass Index (BMI) 31.2 Intake and Output for Last 24 Hours 11/01/19 11/02/19 11/03/19 23:59 23:59 23:59 Intake Total 5502.01 / 5511.41 3076.46 / 3076.46 200 / 200 Output Total 2625 / 2625 1700 / 1700 300 / 300 Balance 2877.01 / 2886.41 1376.46 / 1376.46 -100 / -100 Labs (Last 48 Hours) 11/01/19 11/01/19 11/01/19 09:30 12:31 14:50 WBC RBC Hgb Hct MCV MCH MCHC RDW Std Deviation RDW Coeff of Delisa Plt Count MPV Immature Gran % (Auto) Neut % (Auto) Lymph % (Auto) Bladen % (Auto) Eos % (Auto) Baso % (Auto) Absolute Neuts (auto) Absolute Lymphs (auto) Nucleated RBC % Differential Comment Sodium Potassium Chloride Carbon Dioxide Anion Gap BUN Creatinine Estim Creat Clear Calc Est GFR (MDRD) Af Amer Est GFR (MDRD) Non-Af BUN/Creatinine Ratio Glucose Lactic Acid 1.2 Calcium Magnesium Total Bilirubin AST ALT Alkaline Phosphatase Total Protein Albumin Globulin Albumin/Globulin Ratio Cortisol 12.10 Vancomycin Trough POC Glucose 145 H 11/01/19 11/01/19 11/02/19 18:22 23:08 04:00 WBC 8.2 RBC 3.74 L Hgb 11.6 L Hct 34.7 L MCV 92.8 MCH 31.0 MCHC 33.4 RDW Std Deviation 44.5 H RDW Coeff of Delisa 13.1 Plt Count 152 MPV 9.1 Immature Gran % (Auto) 0.700 Neut % (Auto) 92.1 H Lymph % (Auto) 5.2 L Bladen % (Auto) 1.8 Eos % (Auto) 0.0 Baso % (Auto) 0.2 Absolute Neuts (auto) 7.6 Absolute Lymphs (auto) 0.43 L Nucleated RBC % 0 Differential Comment Sodium Potassium Chloride Carbon Dioxide Anion Gap BUN Creatinine Estim Creat Clear Calc Est GFR (MDRD) Af Amer Est GFR (MDRD) Non-Af BUN/Creatinine Ratio Glucose Lactic Acid Calcium Magnesium Total Bilirubin AST ALT Alkaline Phosphatase Total Protein Albumin Globulin Albumin/Globulin Ratio Cortisol Vancomycin Trough POC Glucose 134 H 208 H 11/02/19 11/02/19 11/02/19 04:00 10:45 16:55 WBC RBC Hgb Hct MCV MCH MCHC RDW Std Deviation RDW Coeff of Delisa Plt Count MPV Immature Gran % (Auto) Neut % (Auto) Lymph % (Auto) Bladen % (Auto) Eos % (Auto) Baso % (Auto) Absolute Neuts (auto) Absolute Lymphs (auto) Nucleated RBC % Differential Comment Sodium 146 H Potassium 3.7 Chloride 117 H Carbon Dioxide 24.0 Anion Gap 5 BUN 8 Creatinine 1.16 Estim Creat Clear Calc 49.07 Est GFR (MDRD) Af Amer 78 Est GFR (MDRD) Non-Af 65 BUN/Creatinine Ratio 6.9 L Glucose 159 H Lactic Acid Calcium 8.3 L Magnesium Total Bilirubin 0.80 AST 37 ALT 27 Alkaline Phosphatase 62 Total Protein 6.3 L Albumin 2.8 L Globulin 3.5 Albumin/Globulin Ratio 0.8 L Cortisol Vancomycin Trough POC Glucose 200 H 154 H 11/02/19 11/03/19 11/03/19 22:17 06:42 07:28 WBC RBC Hgb Hct MCV MCH MCHC RDW Std Deviation RDW Coeff of Delisa Plt Count MPV Immature Gran % (Auto) Neut % (Auto) Lymph % (Auto) Bladen % (Auto) Eos % (Auto) Baso % (Auto) Absolute Neuts (auto) Absolute Lymphs (auto) Nucleated RBC % Differential Comment Sodium Potassium Chloride Carbon Dioxide Anion Gap BUN Creatinine Estim Creat Clear Calc Est GFR (MDRD) Af Amer Est GFR (MDRD) Non-Af BUN/Creatinine Ratio Glucose Lactic Acid Calcium Magnesium Total Bilirubin AST ALT Alkaline Phosphatase Total Protein Albumin Globulin Albumin/Globulin Ratio Cortisol Vancomycin Trough 3.8 L POC Glucose 140 H 142 H 11/03/19 11/03/19 07:28 07:28 WBC 8.5 RBC 3.57 L Hgb 10.8 L Hct 33.2 L MCV 93.0 MCH 30.3 MCHC 32.5 RDW Std Deviation 46.2 H RDW Coeff of Delisa 13.6 Plt Count 161 MPV 9.6 Immature Gran % (Auto) 0.700 Neut % (Auto) 85.4 H Lymph % (Auto) 9.7 L Bladen % (Auto) 4.0 Eos % (Auto) 0.1 Baso % (Auto) 0.1 Absolute Neuts (auto) 7.2 Absolute Lymphs (auto) 0.82 L Nucleated RBC % 0 Differential Comment Sodium Pending Potassium Pending Chloride Pending Carbon Dioxide Pending Anion Gap Pending BUN Pending Creatinine Pending Estim Creat Clear Calc Est GFR (MDRD) Af Amer Pending Est GFR (MDRD) Non-Af Pending BUN/Creatinine Ratio Pending Glucose Pending Lactic Acid Calcium Pending Magnesium Pending Total Bilirubin Pending AST Pending ALT Pending Alkaline Phosphatase Pending Total Protein Pending Albumin Pending Globulin Albumin/Globulin Ratio Cortisol Vancomycin Trough POC Glucose Microbiology 11/01/19 05:55 Urine, Clean Catch Urine Culture - Final Culture exhibits no growth. 11/01/19 05:45 Blood Culture (Wb) - Right Hand Blood Culture - Preliminary No growth in 48 hours. 11/01/19 05:00 Blood Culture (Wb) - Anticubital Left Blood Culture - Preliminary No growth in 48 hours. 11/01/19 06:00 Mucosa - Nose Influenza Types A,B Direct FA (CRISSY) - Final Medical Necessity - Tobacco Use Smoking Status: Never smoker Tobacco Use: Non-smoker Assessment/Plan All Active Problems (Last Reviewed 05/14/19 @ 14:49 by Juju Curtis) Pituitary adenoma (Resolved) Hx of left breast biopsy (Resolved) Left breast lump (Acute) Abnormal ultrasound of breast (Acute) Hx of colonoscopy (Resolved) History of back surgery (Resolved) Hx of elbow surgery (Resolved) Fatigue (Acute) RECOMMENDATIONS: 1. Initiate p.o. hydrocortisone 2. Monitor off of antibiotics 3. Hemodynamically stable on room air. Will sign off from a critical care perspective IMPRESSIONS: 1. 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 Patient is responded very well to hydrocortisone therapy. Will discontinue antibiotics. Appreciate endocrine recommendations. Findings consistent with relative adrenal insuffici ency secondary to hypopituitarism. Patient will be followed up as an outpatient by endocrine. 2. Diarrhea Resolved. Reportedly has had intermittent episodes of diarrhea and constipation. Clinical suspicion for medication induced diarrhea. Patient does not have significant leukocytosis, abdominal pain or cramping reported. Nausea and vomiting could be secondary to orthostatic type symptoms. 3. Acute on chronic kidney disease stage III Baseline creatinine appears to be approximately 1.2. Await morning labs. Clinical suspicion for prerenal etiology associated with hypotension. No indication for renal replacement therapy at this time. 4. Hypothyroidism/diabetes/BPH/depression/allergic rhinitis Complicates care, management, recovery and prognosis. Back on normal diet. Likely okay to reinitiate baseline medications. Okay to continue with baseline thyroid medication. Inpatient E&M: 66035 [facility] Hosp L2
[2019-11-03 08:36] LABS: AST(SGOT) 29 U/L (15-37); Alanine Aminotransfer ALT/SGPT 27 U/L (16-61); Albumin, Serum 3.1 g/dL (3.2-5.0); Alkaline Phosphatase 60 U/L (45-117); Anion Gap 7 (5-15); BUN 11 mg/dL (7-18); BUN/Creat Ratio 9.6 RATIO (10-20); Calcium,Total 8.4 mg/dL (8.5-10.1); Chloride 113 mmol/L (98-107); Creatinine, Serum 1.15 mg/dL (0.70-1.30); EST Glomerular Filtration Rate 65 mL/min (>60); Est Glom Filt Rate - Afr Amer 79 mL/min (>60); Glucose 150 mg/dL (74-106); Magnesium 2.1 mg/dL (1.6-2.6); Potassium 4.1 mmol/L (3.5-5.1); Protein, Total 6.1 g/dL (6.4-8.2); Sodium Level 144 mmol/L (136-145)
--- NOTE | 2019-11-03 09:24 | PCM.DC ---
- Discharge Diagnoses Reason(s) for Visit for Discharge Instructions: Dizziness, syncope You will use the following diet at home:: Cardiac Your food should be the consistency of: Regular Your liquids should be the consistency of: Regular/Thin Discharge Activity: Return to Normal Activity Additional Instructions: Continue to keep yourself hydrated. Follow-up with endocrinology as scheduled. Continue on the same dose of hydrocortisone. Use your walker to walk all the time. You will be discharged with [facility]. Allergies/Adverse Reactions: Allergies No Known Allergies Allergy (Verified 10/24/19 10:23) Medications to take at Discharge Aspirin [Aspirin, Baby] 81 mg PO DAILY@0800 11/17/15 Canadian-3 Fatty Acids [Fish Oil] 1,000 mg PO DAILY 11/17/15 atenolol 25 mg tablet 25 mg PO DAILY 04/24/19 cholecalciferol (vitamin D3) 50 mcg (2,000 unit) capsule 2,000 unit PO DAILY 04/24/19 tamsulosin 0.4 mg capsule 0.4 mg PO DAILY cap 04/24/19 trazodone 50 mg tablet 50 mg PO QHS 04/24/19 Escitalopram Oxalate 10 mg PO DAILY 10/24/19 Finasteride 5 mg PO DAILY 10/24/19 Levothyroxine [Synthroid] 100 mcg PO DAILY 10/24/19 Losartan Potassium [Cozaar] 25 mg PO DAILY 10/24/19 Metformin HCl [Metformin HCl ER] 500 mg PO DAILY 10/24/19 Azelastine HCl [Astelin] 2 spray NARES 4X/DAY 11/01/19 Docusate Sodium [Colace] 100 mg PO BID PRN 11/01/19 Nitroglycerin 2.5 mg PO PRN PRN 11/01/19 Acetaminophen [Tylenol Tablet] 650 mg PO Q6H PRN PRN tab 11/03/19 Hydrocortisone [Cortef] 20 mg PO QHS 14 Days #14 tab 11/03/19 Hydrocortisone [Cortef] 30 mg PO QAM 14 Days #14 tab 11/03/19 Menthol/Lanolin/Calamine/Znox [Calmoseptine Ointment] 1 applic TOPICAL BID #1 tube 11/03/19 Pantoprazole Sodium [Protonix] 40 mg PO DAILY 30 Days #30 tab 11/03/19 The following prescriptions were given: Menthol/Lanolin/Calamine/Znox [Calmoseptine Ointment] 1 applic TOPICAL BID #1 tube Transmission Status: Received by [id number] Hydrocortisone [Cortef] 20 mg PO QHS 14 Days #14 tab Transmission Status: Received by [id number] Hydrocortisone [Cortef] 30 mg PO QAM 14 Days #14 tab Transmission Status: Received by [id number] Pantoprazole Sodium [Protonix] 40 mg PO DAILY 30 Days #30 tab Transmission Status: Received by [id number] Primary Care Physician: Gianluca Trevino MD [Primary Care Provider] - Please follow up with your Primary Care Physician in: within 1-2 weeks Test Results: Test results from this visit will be discussed in further detail at your follow-up appointment, if applicable. Please Follow Up With: Daniel Cheema MD When: within 1 week Proposed Discharge Date: 11/03/19
--- NOTE | 2019-11-03 09:52 | PCM.DC.SUM ---
Discharge Date and Diagnosis Date of Admission: 11/01/19 Date of Discharge: 11/03/19 - Primary Discharge Diagnosis Active and Suspected Problems (Last Reviewed 05/14/19 @ 14:49 by Juju Curtis) Hypotension Relative adrenal insufficiency Septic shock/severe sepsis ruled out Lactic acidosis - Secondary Discharge Diagnosis Chronic Problems (Last Reviewed 05/14/19 @ 14:49 by Juju Curtis) Arthritis (Chronic) Hx of heart artery stent (Chronic) X6 History of heart attack (Chronic) Low back problem (Chronic) Hospital Course and Treatment Imaging Results: Clinical Impression(s) from Imaging Studies Chest X-Ray 11/01/19 04:58 IMPRESSION: 1. Limited inspiration with right basilar small atelectasis or infiltrate. 2. No CHF. at 0605 Reported and signed by: Jaren Alves MD Electronically Signed: Jaren Alves, at 6:04 EDT Tel , Service support , Chest X-Ray 11/01/19 08:10 IMPRESSION: A right-sided internal jugular venous catheter seen with the tip in the proximal portion of the superior vena cava. The remainder of the examination is unchanged. Electronically Signed: Luis Fontaine, at 8:36 EDT , Service support , Brain CT 11/01/19 14:24 IMPRESSION: Chronic involutional changes of the brain. Further improvement in the bilateral frontal subdural hematomas. No significant mass effect is seen. Electronically Signed: Luis Fontaine, at 15:38 EDT , Service support , KUB X-Ray 11/01/19 16:38 IMPRESSION: Normal bowel gas pattern. 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 Patient reportedly had a syncopal episode and was found to be confused. Patient was brought to the emergency department, he was found to have a fever 102F, vitals were stable. Lactic acid elevated at 3.7. Chest x-ray was a stable possible infiltrate. Patient was initially admitted to the ICU as septic shock likely secondary to pneumonia versus gastroenteritis. There was no diarrhea since his admission. Blood cultures were taken that came back to be negative. Patient was started on Levophed but his vitals improved and he was off levo fed with initiation of IV hydrocortisone. Random cortisol prior to start of hydrocortisone was normal. Endocrinology was consulted and recommended the patient be continued on oral hydrocortisone 30 mg p.o. in a.m. and 20 mg p.o. in p.m. pending evaluation in clinic. Patient's rapid improvement, it was felt that septic shock was unlikely the cause of his decompensation but rather from adrenal insufficiency. Patient will follow-up with his neurosurgeon in the outpatient. Subjective: On the day of discharge, patient was seen and examined. Denied any new complaint. Objective: Physical exam: General: Alert, Oriented x3, Cooperative, No apparent distress HEENT: Atraumatic, PERRLA, EOMI, Normocephalic Oral: Dry Mucosa Neck: Supple Lungs: Clear to auscultation, Normal air movement Cardiovascular: Regular rate, Regular Rhythm, Normal S1, Normal S2, No murmurs Abdomen: Bowel Sounds Present, Soft, Non Tender, Non-Distended, No Hepato-splenomegaly Extremities: No edema Skin: No rashes, No breakdown Musculoskeletal: No Tenderness to Palpation of Joints or Extremities Lymphatic: No Cervical, Supraclavicular, or Inguinal Adenopathy Neurological: Cranial nerves II-XII grossly intact, Neuro grossly intact Psych/Mental Status: Normal Affect, Appropriate - Physical Exam Vitals/I&O's: Vital Signs Temp Pulse Resp BP Pulse Ox 97.6 F L 70 16 130/67 H 96 11/03/19 09:36 11/03/19 09:36 11/03/19 09:36 11/03/19 09:36 11/03/19 09:36 Oxygen Flow Rate (L/min) 2 Oxygen Delivery Method Room Air Weight: 90.5 kg Body Mass Index (BMI) 31.2 Intake and Output for Last 24 Hours 11/01/19 11/02/19 11/03/19 23:59 23:59 23:59 Intake Total 5502.01 / 5511.41 3076.46 / 3076.46 200 / 200 Output Total 2625 / 2625 1700 / 1700 300 / 300 Balance 2877.01 / 2886.41 1376.46 / 1376.46 -100 / -100 Microbiology Past 72 Hours 11/01/19 05:55 Urine, Clean Catch Urine Culture - Final Culture exhibits no growth. 11/01/19 05:45 Blood Culture (Wb) - Right Hand Blood Culture - Preliminary No growth in 48 hours. 11/01/19 05:00 Blood Culture (Wb) - Anticubital Left Blood Culture - Preliminary No growth in 48 hours. 11/01/19 06:00 Mucosa - Nose Influenza Types A,B Direct FA (CRISSY) - Final Laboratory Results 11/02/19 10:45: POC Glucose 200 H 11/02/19 16:55: POC Glucose 154 H 11/02/19 22:17: POC Glucose 140 H 11/03/19 06:42: POC Glucose 142 H 11/03/19 07:28: Vancomycin Trough 3.8 L 11/03/19 07:28: WBC 8.5, RBC 3.57 L, Hgb 10.8 L, Hct 33.2 L, MCV 93.0, MCH 30.3, MCHC 32.5, RDW Std Deviation 46.2 H, RDW Coeff of Delisa 13.6, Plt Count 161, MPV 9.6, Immature Gran % (Auto) 0.700, Neut % (Auto) 85.4 H, Lymph % (Auto) 9.7 L, [place] % (Auto) 4.0, Eos % (Auto) 0.1, Baso % (Auto) 0.1, Absolute Neuts (auto) 7.2, Absolute Lymphs (auto) 0.82 L, Nucleated RBC % 0 11/03/19 07:28: Sodium 144, Potassium 4.1, Chloride 113 H, Carbon Dioxide 24.0, Anion Gap 7, BUN 11, Creatinine 1.15, Estim Creat Clear Calc 49.50, Est GFR (MDRD) Af Amer 79, Est GFR (MDRD) Non-Af 65, BUN/Creatinine Ratio 9.6 L, Glucose 150 H, Calcium 8.4 L, Magnesium 2.1, Total Bilirubin 0.40, AST 29, ALT 27, Alkaline Phosphatase 60, Total Protein 6.1 L, Albumin 3.1 L, Globulin 3.0, Albumin/Globulin Ratio 1.0 Current Medications Acetaminophen (Tylenol) 650 mg PO Q6H PRN PRN PRN Reason: Pain Score 1-10/Temp > 100.7 F Albuterol Sulfate (Ventolin Aerosols) 2.5 mg INHALATION Q2H PRN PRN PRN Reason: SOB/Wheezing Aspirin (Aspirin, Baby) 81 mg PO DAILY@0800 [facility] Last Admin: 11/03/19 07:50 Dose: 81 mg Documented by: Atenolol (Tenormin (Beta Roberto)) 25 mg PO DAILY [facility] Calamine/Phenol (Calmoseptine Ointment) 1 applic TOPICAL BID [facility]; Protocol Last Admin: 11/02/19 22:27 Dose: 1 applicatio Documented by: Dextrose (D50w Syringe) 0 gm IV X1 PRN; Protocol PRN Reason: Hypoglycemia Docusate Sodium (Colace) 100 mg PO BID PRN PRN Reason: stool softner Escitalopram Oxalate (Lexapro) 10 mg PO DAILY [facility] Last Admin: 11/02/19 09:34 Dose: 10 mg Documented by: Finasteride (Proscar) 5 mg PO DAILY [facility] Last Admin: 11/02/19 09:34 Dose: 5 mg Documented by: Glucagon () 1 mg IM .X1 PRN PRN Reason: Hypoglycemia Hydrocortisone (Cortef) 30 mg PO QAM [facility] Hydrocortisone (Cortef) 20 mg PO QHS [facility] Insulin Human Lispro (Humalog Kwikpen (Bkc)) 0 unit SC ACHS [facility]; Protocol Last Admin: 11/03/19 06:42 Dose: Not Given Documented by: Levothyroxine Sodium (Synthroid) 100 mcg PO DAILY@0600 [facility] Last Admin: 11/03/19 05:48 Dose: 100 mcg Documented by: Losartan Potassium (Cozaar) 25 mg PO DAILY [facility] Ondansetron HCl (Zofran) 4 mg IV Q6H PRN PRN PRN Reason: NAUSEA/VOMITING Pantoprazole Sodium (Protonix) 40 mg PO DAILY [facility] Last Admin: 11/02/19 09:34 Dose: 40 mg Documented by: Sodium Chloride () 10 - 40 ml IV UD PRN PRN Reason: SALINE FLUSH Last Admin: 11/03/19 05:49 Dose: 10 ml Documented by: Tamsulosin HCl (Flomax) 0.4 mg PO DAILY [facility] Last Admin: 11/02/19 09:34 Dose: 0.4 mg Documented by: Trazodone HCl (Desyrel) 50 mg PO QHS [facility] Last Admin: 11/02/19 22:20 Dose: 50 mg Documented by: Discharge Diet: Low fat/ Low Cholesterol, 2000 mg Sodium Diet Discharge Activity: Return to Normal Activity Home Medications: Medications to take at Discharge Aspirin [Aspirin, Baby] 81 mg PO DAILY@0800 11/17/15 [place]-3 Fatty Acids [Fish Oil] 1,000 mg PO DAILY 11/17/15 atenolol 25 mg tablet 25 mg PO DAILY 04/24/19 cholecalciferol (vitamin D3) 50 mcg (2,000 unit) capsule 2,000 unit PO DAILY 04/24/19 tamsulosin 0.4 mg capsule 0.4 mg PO DAILY cap 04/24/19 trazodone 50 mg tablet 50 mg PO QHS 04/24/19 Escitalopram Oxalate 10 mg PO DAILY 10/24/19 Finasteride 5 mg PO DAILY 10/24/19 Levothyroxine [Synthroid] 100 mcg PO DAILY 10/24/19 Losartan Potassium [Cozaar] 25 mg PO DAILY 10/24/19 Metformin HCl [Metformin HCl ER] 500 mg PO DAILY 10/24/19 Azelastine HCl [Astelin] 2 spray NARES 4X/DAY 11/01/19 Docusate Sodium [Colace] 100 mg PO BID PRN 11/01/19 Nitroglycerin 2.5 mg PO PRN PRN 11/01/19 Acetaminophen [Tylenol Tablet] 650 mg PO Q6H PRN PRN tab 11/03/19 Hydrocortisone [Cortef] 20 mg PO QHS 14 Days #14 tab 11/03/19 Hydrocortisone [Cortef] 30 mg PO QAM 14 Days #14 tab 11/03/19 Menthol/Lanolin/Calamine/Znox [Calmoseptine Ointment] 1 applic TOPICAL BID #1 tube 11/03/19 Pantoprazole Sodium [Protonix] 40 mg PO DAILY 30 Days #30 tab 11/03/19 Following Prescrptions Were Given to Patient: Menthol/Lanolin/Calamine/Znox [Calmoseptine Ointment] 1 applic TOPICAL BID #1 tube Transmission Status: Received by [id number] Hydrocortisone [Cortef] 20 mg PO QHS 14 Days #14 tab Transmission Status: Received by [id number] Hydrocortisone [Cortef] 30 mg PO QAM 14 Days #14 tab Transmission Status: Received by [id number] Pantoprazole Sodium [Protonix] 40 mg PO DAILY 30 Days #30 tab Transmission Status: Received by [id number] Primary Care Physician: Gianluca Trevino MD [Primary Care Provider] - Please follow up with your Primary Care Physician in: within 1-2 weeks Please Follow Up With: Daniel Cheema MD When: within 1 week Disposition: Home with Home Health Minutes spent on discharge:: 40 Patient Condition:: Stable Medical Necessity - Tobacco Use Smoking Status: Never smoker Tobacco Use: Non-smoker Meaningful Use Info Meaningful Use Diagnoses (Choose all that apply): None applicable Inpatient E&M: 22039 [facility]
[2019-11-03] MEDS: Menthol/Lanolin/Calamine/Znox 113 GM Tube 1 APPLIC TOPICAL (10:24)
[2019-11-03] MEDS: Tamsulosin HCl 0.4 MG Capsule PO (10:27)
[2019-11-03] MEDS: Losartan Potassium 25 MG Tablet PO (10:27)
[2019-11-03] MEDS: Hydrocortisone 10 MG Tablet 30 MG PO (10:27)
[2019-11-03] MEDS: Pantoprazole Sodium 40 MG Tablet PO (10:27)
[2019-11-03] MEDS: Finasteride 5 MG Tablet PO (10:28)
[2019-11-03] MEDS: Escitalopram Oxalate 10 MG Tablet PO (10:28)
[2019-11-03 11:16] LABS: Bedside Glucose 183 mg/dL (70-110)
--- NOTE | 2019-11-03 11:25 | NURSING ---
Central line to right IJ dc'd, tip intact. Pressure held for 5 minutes, vaseline guaze with 2x2 applied over top and secured with tegaderm. Instructed to lay flat for 30 minutes.
--- NOTE | 2019-11-03 11:33 | CM.UR ---
Addendum entered by Larisa Badillo 11/03/19 11:42: Spoke with Chitra at [facility] at home. Explained sending over new referral. She gave fax number to fax information to. Completed Covid-19 communication tool to fax with documentation. Beatris Badillo RN, CCM. Original Note: Dr. Bella alerted me that this patient needed set up for HHC. Spoke with patient and [facility]. Explained that he will not here from them until next week as they don't usually call to set up HHC on the weekends. He verb understanding. Beatris Badillo RN, CCM.
[2019-11-03] MEDS: Insulin Lispro 100 UNIT/ML INSULN.PEN SC (11:51)
--- NOTE | 2019-11-06 14:51 | CASEMGMT ---
Addendum entered by Sepideh Ballard 11/06/19 14:56: did state that pt returned to ED on 11/04/2019 for N/V but was discharged back home. states that pt has been able to keep food down since yesterday afternoon. Carmel HERNANDEZ CM Original Note: DAVID SULLIVAN Discharge F/U Phone Call Discharge date: 11/03/2019 Call date: 11/06/2019 Call time:[id number] Duration: 9 minutes Admission dx: Septic shock Pt's answered the phone and states pt is unable to come to phone at this time but is willing to answer questions for pt at this time. states no questions regarding D/C instructions/medications at this time. states that she has been on the phone making appt's for pt at this time. states no further suggestions for [facility] at this time but does state 'I was leery about [facility] but we are both totally amazed how they have changed and the care he received.' voices no further questions/concerns/needs at this time. Carmel HERNANDEZ CM
== END 2019-11-03 12:54 | disposition home or self-care (01) | DRG 644 ==
LOC: ED 07:28 → ICU 11-02 00:47 → PCU 11-02 18:17 → ICU 11-05 07:04 → PCU 11-05 07:04
PROVIDERS: Internal Medicine Critical Care Medicine; Admitting Provider Internal Medicine; Emergency Provider Emergency Medicine; PCP Family Medicine; Visit Provider Internal Medicine
DX: E27.40 Unspecified adrenocortical insufficiency (principal); E87.2 Acidosis; M19.90 Unspecified osteoarthritis, unspecified site; E03.9 Hypothyroidism, unspecified; N40.0 Benign prostatic hyperplasia without lower urinary tract symptoms; I25.2 Old myocardial infarction; Z95.5 Presence of coronary angioplasty implant and graft; Z79.84 Long term (current) use of oral hypoglycemic drugs; I95.9 Hypotension, unspecified; I25.10 Atherosclerotic heart disease of native coronary artery without angina pectoris; E11.9 Type 2 diabetes mellitus without complications; I10 Essential (primary) hypertension; F32.9 Major depressive disorder, single episode, unspecified
CPT/HCPCS: 36415; 70450; 71045; 74018; 80053; 80202; 81001; 82533; 82962; 83605; 83735; 84484; 85025; 85610; 85730; 87040; 87086; 87804; 93005; 97116; 97162; 97166; 97530; 97535; 97802; 99251; 99285; J7030; J7040; J7050; A4216; C1751; G0463; J2405

== ENCOUNTER 2019-11-04 15:38 | Emergency (ER) | payer MEDICARE, SELFPAY ==
[2019-11-01 10:26] VITALS: BMI 31.2
[2019-11-04 15:39] VITALS: BP 160/84; PULSE 72; RESP 16; TEMP 36.9; O2SAT 96; BMI 27.2
[2019-11-04 15:46] VITALS: BP 154/83; PULSE 69; RESP 18; TEMP 36.3; O2SAT 99; BMI 40.6
--- NOTE | 2019-11-04 15:56 | RAD_ITS ---
STUDY: X-RAY CHEST REASON FOR EXAM: Male, 79 years old. nausea, vomiting, diarrhea, dizziness TECHNIQUE: Single AP portable view of the chest. COMPARISON: 11/01/2019 FINDINGS: Interval removal right internal jugular deep venous line. Poor inspiration with some bibasilar atelectasis. There is no demonstrated pleural abnormality. Normal size heart. Normal mediastinum and rd. Normal visualized pulmonary arteries. Normal visualized aortic arch and descending thoracic aorta. Normal visualized thoracic spine. Normal visualized ribs, clavicles, and shoulders. There is no demonstrated abnormality of the visualized soft tissue structures of the upper abdomen. RAD/Chest 1 View (Portable) IMPRESSION: 1. Interval removal right internal jugular deep venous line. 2. Poor inspiration with some bibasilar atelectasis. Electronically Signed: Sher Gomez MD at 16:49 EDT Tel , Service support ,
--- NOTE | 2019-11-04 15:57 | EKG12_ITS ---
Test Reason : VOMITING Blood Pressure : / mmHG Vent. Rate : 055 BPM Atrial Rate : 055 BPM P-R Int : 158 ms QRS Dur : 092 ms QT Int : 486 ms P-R-T Axes : 033 026 034 degrees QTc Int : 464 ms Sinus bradycardia with Premature supraventricular complexes Nonspecific ST abnormality Abnormal ECG Confirmed by DAE BOSTON, RABIA ([id number]), loan expeditor PEBBLES PAULSON ([id number]) on 11/06/2019 8:28:09 AM Referred By: MAXI Confirmed By:RABIA PEARL MD
[2019-11-04 16:44] LABS: Partial Thromboplast Time 27.4 Seconds (24.1-36.2)
[2019-11-04 16:45] LABS: International Normalized Ratio 1.2
[2019-11-04] MEDS: Ondansetron 4 MG/2 ML Vial IV (16:48)
[2019-11-04 16:55] LABS: AST(SGOT) 37 U/L (15-37); Alanine Aminotransfer ALT/SGPT 35 U/L (16-61); Albumin, Serum 3.3 g/dL (3.2-5.0); Alkaline Phosphatase 62 U/L (45-117); Anion Gap 8 (5-15); BUN 12 mg/dL (7-18); BUN/Creat Ratio 9.4 RATIO (10-20); Calcium,Total 8.7 mg/dL (8.5-10.1); Chloride 107 mmol/L (98-107); Creatinine, Serum 1.27 mg/dL (0.70-1.30); EST Glomerular Filtration Rate 58 mL/min (>60); Est Glom Filt Rate - Afr Amer 71 mL/min (>60); Globulin 3.4 g/dL (2.2-4.2); Glucose 111 mg/dL (74-106); Lipase 131 U/L (73-393); Potassium 3.5 mmol/L (3.5-5.1); Protein, Total 6.7 g/dL (6.4-8.2); Sodium Level 142 mmol/L (136-145)
[2019-11-04 16:58] VITALS: BP 178/86; PULSE 57; RESP 26; TEMP 36.9; O2SAT 97
[2019-11-04 17:02] LABS: Absolute Lymphocyte Count 1.11 X10^3/uL (0.83-4.51); Basophil# 0.06 X10^3/uL; Basophil% 0.7 % (0-1); Eosinophil# 0.09 X10^3/uL; Hematocrit 36.1 % (40-54); Hemoglobin 11.6 g/dL (13.0-16.5); Lymphocyte # 1.11 X10^3/ul (4.0); Lymphocyte % 12.3 % (19-41); Mean Corp Hgb Conc 32.1 g/dL (32-36); Mean Corpuscular Hgb 30.2 pg (27.0-32.0); Mean Platelet Vol. 9.3 fl (6.2-12.0); Monocyte# 0.66 X10^3/uL; Monocyte% 7.3 % (0-10); NRBC Flagged by Analyzer 0 % (0-5); Neutrophil # 6.96 X10^3/uL (2.7-7.7); Neutrophil % 76.8 % (47-70); Platelet Count 196 K/mm3 (150-450); RBC Distribution Width CV 13.5 % (11.6-14.6); Red Blood Count 3.84 M/mm3 (4.6-6.2); White Blood Count 9.1 K/mm3 (4.4-11.0)
[2019-11-04 17:05] VITALS: BP 168/79; PULSE 64; RESP 24; TEMP 36.9; O2SAT 97
[2019-11-04 17:09] LABS: Bacteria 0 SEEN /hpf (None Seen); Mucous, Urine 0 SEEN /hpf (<or=2+); Red Blood Cells-Urine 0 SEEN /hpf (0-5); White Blood Cells 0 SEEN /hpf (0-5)
[2019-11-04 17:10] LABS: Color, Urine Yellow (Yellow); Glucose, Dipstick Normal (Normal); Ketone-Dipstick Negative (Negative); Leukocyte Esterase-Dipstick Negative /ul (Negative); Nitrite-Dipstick Negative (Negative); Occult Blood-Urine Negative /ul (Negative); Protein-Dipstick Negative (Negative); Urine Bilirubin Dipstick Negative (Negative); Urine Clarity Sl. Cloudy (Clear); Urine Urobilinogen Normal (Normal)
[2019-11-04 17:16] LABS: Squamous Epithelial Cells - UA 0-5 SEEN /hpf (0-5)
--- NOTE | 2019-11-04 19:08 | ED.RN ---
attempted to call pt's several times, unable to o get ahold of her at this time. message from her phone stated the phone was currently not able to be used.
[2019-11-04 19:23] VITALS: BP 154/76; PULSE 55; RESP 18; TEMP 37; O2SAT 96
[2019-11-04 19:27] LABS: Lactic Acid 1.7 mmol/L (0.4-1.9)
[2019-11-04 19:49] VITALS: BP 154/76; PULSE 55; RESP 18; O2SAT 96
--- NOTE | 2019-11-04 19:51 | ED.VISSUMM ---
- ER Visit Summary Date of Service: 11/04/19 Chief Complaint: Nausea and vomiting History of Present Illness: The patient is a 79 M with nausea and vomiting since yesterday. The patient was discharged from the hospital. He had been admitted for suspected sepsis. His lactate was elevated. He was hypotensive. It was felt that his findings were related to his pituitary adenoma and he was started on hydrocortisone. He has been taking it. He had some nausea and vomiting that started yesterday. He felt a little dizzy but did not pass out. He denies vertigo. Denies weakness, numbness, facial droop, changes, or vision changes. Denies headache. He has a cough but denies any sputum. Denies chest pain. Denies fevers. Denies any other symptoms. Physical Examination: Afebrile and vital signs unremarkable. Alert and oriented. Patient is dry heaving. Heart regular. Lungs clear. Abdomen soft and nontender. Skin appears normal. No focal or lateralizing neurologic abnormalities grossly. Test Results: EKG showed sinus rhythm at a rate of 55 with PVCs. Chest x-ray showed poor inspiration but otherwise was unremarkable. Hemoglobin stable at 11.6. Glucose 111. Lipase normal. Coags normal. Urinalysis normal. Troponin normal. Lactate 2.0. Influenza test negative. Emergency Department Course and Treatment: Patient was treated with fluids and Zofran while awaiting results. Coronavirus precautions were maintained. His work-up was all fairly unremarkable. Lactate was 2.0. He was treated with IV fluids and repeat lactate was 1.7. He had no further vomiting. No other symptoms. Patient will be discharged home as he is feeling better. Will prescribe Zofran. Follow-up with primary care. He will continue taking his other medications as prescribed. Treatment Plan: As above Disposition: Discharge Impression: Nausea This note was generated with [employer] dictation software. It may contain incorrect words, spelling, and punctuation that were not noted in review of the chart prior to signing ED Disposition - Plan for ED Patient: Referrals: Gianluca Trevino MD [Primary Care Provider] -
--- NOTE | 2019-11-04 19:54 | ED.DEP ---
ED Disposition - Plan for ED Patient: Instructions: VOMITING (7y-Adult) Prescriptions: Ondansetron [Zofran Odt] 4 mg PO Q8H PRN PRN #10 tab PRN Reason: Nausea Prescription Printed Referrals: Gianluca Trevino MD [Primary Care Provider] -
[2019-11-04 20:45] LABS: Reflex Lactate? Y
== END 2019-11-04 20:15 | disposition home or self-care (01) ==
PROVIDERS: Emergency Provider Emergency Medicine; PCP Family Medicine
DX: R11.2 Nausea with vomiting, unspecified (principal); I25.10 Atherosclerotic heart disease of native coronary artery without angina pectoris; Z79.899 Other long term (current) drug therapy; Z79.82 Long term (current) use of aspirin
CPT/HCPCS: 71045; 80053; 81001; 83605; 83690; 84484; 85025; 85610; 85730; 87804; 93005; 99285; J7030; A4216; J2405

== ENCOUNTER 2019-12-22 15:06 | Emergency (ER) | payer MEDICARE, SELFPAY ==
[2019-11-09 11:41] VITALS: BMI 40.6
[2019-12-22 15:08] VITALS: BP 96/60; PULSE 81; RESP 16; TEMP 36.6; O2SAT 95; BMI 25.8
[2019-12-22 15:14] VITALS: BP 96/60; PULSE 81; RESP 16; TEMP 36.6; O2SAT 95
--- NOTE | 2019-12-22 15:23 | EKG12_ITS ---
Test Reason : NAUSEA/VOMITING Blood Pressure : / mmHG Vent. Rate : 063 BPM Atrial Rate : 063 BPM P-R Int : 178 ms QRS Dur : 092 ms QT Int : 452 ms P-R-T Axes : 032 021 044 degrees QTc Int : 462 ms Normal sinus rhythm Normal ECG Confirmed by DAE BOSTON, RABIA ([id number]), sports editor SARAY LOPES ([id number]) on 12/24/2019 3:03:26 PM Referred By: MAXI Confirmed By:RABIA PEARL MD
[2019-12-22 15:31] VITALS: O2SAT 98
[2019-12-22] MEDS: 0.9% Normal Saline 1,000 ML 999 ML IV (15:42)
[2019-12-22] MEDS: Ondansetron 4 MG/2 ML Vial IV (15:43)
[2019-12-22 15:44] LABS: Absolute Lymphocyte Count 0.96 X10^3/uL (0.83-4.51); Absolute Neutrophil Count 8.1 X10^3/uL (2.0-7.7); Basophil# 0.04 X10^3/uL; Basophil% 0.4 % (0-1); Eosinophil# 0.07 X10^3/uL; Eosinophils% 0.7 % (0-5); Hematocrit 47.1 % (40-54); Hemoglobin 15.1 g/dL (13.0-16.5); Lymphocyte # 0.96 X10^3/ul (4.0); Lymphocyte % 9.4 % (19-41); Mean Corp Hgb Conc 32.1 g/dL (32-36); Mean Corpuscular Hgb 30.6 pg (27.0-32.0); Mean Corpuscular Volume 95.5 fL (80-94); Mean Platelet Vol. 9.1 fl (6.2-12.0); Monocyte% 9.8 % (0-10); NRBC Flagged by Analyzer 0 % (0-5); Neutrophil % 79.2 % (47-70); Platelet Count 188 K/mm3 (150-450); RBC Distribution Width CV 13.5 % (11.6-14.6); RBC Distribution Width SD 47.3 fl (35.1-43.9); Red Blood Count 4.93 M/mm3 (4.6-6.2); White Blood Count 10.2 K/mm3 (4.4-11.0)
[2019-12-22 15:53] LABS: International Normalized Ratio 1.1; Prothrombin Time (Protime)PT. 13.4 SECONDS (11.7-14.9)
[2019-12-22 15:54] LABS: Partial Thromboplast Time 30.3 Seconds (24.1-36.2)
[2019-12-22 16:02] LABS: Bacteria 0 SEEN /hpf (None Seen); Mucous, Urine 0 SEEN /hpf (<or=2+); Red Blood Cells-Urine 0 SEEN /hpf (0-5); White Blood Cells 0 SEEN /hpf (0-5)
[2019-12-22 16:05] LABS: AST(SGOT) 26 U/L (15-37); Alanine Aminotransfer ALT/SGPT 46 U/L (16-61); Albumin, Serum 3.8 g/dL (3.2-5.0); Alkaline Phosphatase 91 U/L (45-117); Anion Gap 9 (5-15); BUN 16 mg/dL (7-18); BUN/Creat Ratio 11.6 RATIO (10-20); Calcium,Total 9.3 mg/dL (8.5-10.1); Chloride 100 mmol/L (98-107); Creatinine, Serum 1.38 mg/dL (0.70-1.30); EST Glomerular Filtration Rate 53 mL/min (>60); Est Glom Filt Rate - Afr Amer 64 mL/min (>60); Estimated Creatinine Clearance 45.55 ml/min; Glucose 151 mg/dL (74-106); Potassium 4.4 mmol/L (3.5-5.1); Protein, Total 7.8 g/dL (6.4-8.2); Sodium Level 138 mmol/L (136-145)
[2019-12-22 16:05] LABS: Color, Urine Yellow (Yellow); Glucose, Dipstick Normal (Normal); Ketone-Dipstick Negative (Negative); Leukocyte Esterase-Dipstick Negative /ul (Negative); Nitrite-Dipstick Negative (Negative); Occult Blood-Urine Negative /ul (Negative); Protein-Dipstick 15 mg/dl (Negative); Urine Bilirubin Dipstick Negative (Negative); Urine Clarity Sl. Cloudy (Clear); Urine Urobilinogen 1 mg/dl (Normal)
--- NOTE | 2019-12-22 16:10 | CT_ITS ---
STUDY: CT ABDOMEN AND PELVIS WITH CONTRAST REASON FOR EXAM: Male, 79 years old. N/V AND DIARRHEA, COUGH, ABDOMINAL PAIN RADIATION DOSAGE (If Supplied By Facility): CTDIvol = ( 16.16 ) mGy, DLP = ( 1157.96 ) mGycm TECHNIQUE: Transaxial images were obtained from the dome of the diaphragm to the symphysis pubis without oral contrast. IV 100mL Isovue-370 was administered. Sagittal and coronal images were reconstructed. Individualized dose optimization techniques were used for this CT. COMPARISON: None. FINDINGS: Lung bases are clear. Heart size is normal. Trace perihepatic fluid. The liver is unremarkable. Thick-walled gallbladder. No opaque stones. Common duct is not dilated. Multiple splenic granulomata. Spleen is otherwise unremarkable. Normal pancreas. The adrenal glands are normal. 2 cm left renal cyst. The kidneys are otherwise unremarkable. No stones or hydronephrosis. The aorta is normal in caliber. There is no free fluid, free air, or organized collection. No bowel obstruction or inflammatory change. Diverticulosis. No acute diverticulitis. Normal appendix. Urinary bladder is unremarkable. Normal abdominal wall. Chronic L1 compression fracture. Mild degenerative changes of the lumbar spine. CT/Abdomen/Pelvis W IV Cont ONLY IMPRESSION: 1. Trace perihepatic fluid. 2. Gallbladder wall thickening without demonstrated cholelithiasis. If the patient has right upper quadrant pain, gallbladder ultrasound is advised to evaluate for stones and cholecystitis. 3. Chronic L1 compression fracture. Additional chronic findings are noted above. Electronically Signed: Shefali Beard MD at 17:01 EDT Tel , Service support ,
[2019-12-22 16:14] VITALS: BP 149/78; PULSE 63; RESP 24; TEMP 36.6; O2SAT 97
[2019-12-22 16:15] LABS: Lactic Acid 1.8 mmol/L (0.4-1.9)
[2019-12-22 16:19] LABS: Squamous Epithelial Cells - UA 0-5 SEEN /hpf (0-5)
--- NOTE | 2019-12-22 16:19 | RAD_ITS ---
STUDY: X-RAY CHEST REASON FOR EXAM: Male, 79 years old. COUGH TECHNIQUE: Single AP portable view of the chest. COMPARISON: 11/04/2019. FINDINGS: The lungs are clear and expanded. There is no demonstrated pleural abnormality. Normal size heart. Left coronary stent. Normal mediastinum and rd. Normal visualized pulmonary arteries. Normal visualized aortic arch and descending thoracic aorta. Normal visualized thoracic spine. Normal visualized ribs, clavicles, and shoulders. There is no demonstrated abnormality of the visualized soft tissue structures of the upper abdomen. RAD/Chest 1 View (Portable) IMPRESSION: Normal x-ray examination of the chest. Electronically Signed: Shefali Beard MD at 16:48 EDT Tel , Service support ,
[2019-12-22 17:00] VITALS: BP 157/79; PULSE 64; RESP 20; TEMP 37; O2SAT 97
--- NOTE | 2019-12-22 17:20 | US_ITS ---
STUDY: ABDOMINAL ULTRASOUND - RIGHT UPPER QUADRANT REASON FOR VISIT: Male, [address] - NPO X [address] scan. TECHNIQUE: Ultrasound evaluation of the right upper quadrant was performed with real-time and static olivas-scale imaging. TECHNICAL QUALITY: Adequate. COMPARISON: CT abdomen 12/22/2019. FINDINGS: Liver: The liver measures 16 cm. There is normal echogenicity of the liver. The bile ducts are within normal limits. There is hepatic color flow. The direction of portal flow is hepatopetal. There is no demonstrated mass lesion. Gallbladder: Normal distended gallbladder. The gallbladder wall measures 3 mm. There is a negative sonographic Kearney''s sign. There is no pericholecystic fluid. Mild sludge is noted in the gallbladder. Common Bile Duct (C.B.D.): The common bile duct measures 3 mm. Pancreas: Poorly seen. Demonstrated segments are unremarkable. Right Kidney: Normal size of the right kidney. The right kidney measures 9.6 x 5.6 x 4.7 cm. Normal renal cortex. The right cortex measures 1.7 cm. There is no demonstrated renal mass or cyst. There is no right hydronephrosis. US/Gallbladder IMPRESSION: 1. Gallbladder sludge. No evidence of acute cholecystitis. Electronically Signed: Shefali Beard MD at 18:52 EDT Tel , Service support ,
[2019-12-22 18:22] VITALS: BP 132/74; PULSE 62; RESP 24; TEMP 36.4; O2SAT 100
--- NOTE | 2019-12-22 19:02 | ED.VISSUMM ---
- ER Visit Summary Date of Service: 12/22/19 Chief Complaint: Nausea and vomiting History of Present Illness: The patient is a 79 M with nausea vomiting. Symptoms started yesterday. He has some epigastric pain as well. He reports a dry cough for the past 2 weeks. Denies any shortness of breath, hemoptysis, fevers, chills, shakes, sweats. He has a history of adrenal insufficiency and was admitted recently. He was started on hydrocortisone. He continues to take this. He also has a history of hypothyroidism, pituitary adenoma, coronary disease, ID, diabetes, hypertension. Physical Examination: Blood pressure 96/60. Otherwise vitals unremarkable. Afebrile. Alert and oriented. No acute distress. Heart regular. Lungs clear. Abdomen soft and nontender. Skin appears normal. Test Results: EKG shows sinus rhythm at a rate of 63. No sign of ischemia or infarction pattern. CBC normal. CMP unremarkable. Creatinine stable at 1.38. Total bilirubin 1.10. Coags normal. Lactate normal. Troponin normal. Cultures pending. Urinalysis normal. Respiratory panel and coronavirus testing pending. Chest x-ray was normal. CT abdomen showed trace perihepatic fluid and gallbladder wall thickening. He has a chronic L1 compression fracture. Follow-up ultrasound showed gallbladder sludge but no other signs of cholecystitis. Emergency Department Course and Treatment: Patient was treated with fluids and Zofran. Repeat blood pressure was 132/74. No other hypotension. No signs of shock. His work-up, as above was unremarkable. On reevaluation, he was feeling much better. He will be discharged home per his request. There is no indication to admit him. He was given coronavirus precautions as results are pending. Return for any new or worsening issues. Prescription for Zofran. Treatment Plan: As above Disposition: Discharge Impression: Nausea and vomiting, adrenal insufficiency, cough This note was generated with [employer] dictation software. It may contain incorrect words, spelling, and punctuation that were not noted in review of the chart prior to signing ED Disposition - Plan for ED Patient: Referrals: Gianluca Trevino MD [Primary Care Provider] -
--- NOTE | 2019-12-22 19:05 | ED.DEP ---
ED Disposition - Plan for ED Patient: Instructions: ED Nausea Vomiting Adult Prescriptions: Ondansetron [Zofran Odt] 4 mg PO Q8H PRN PRN #10 tab PRN Reason: Nausea Prescription Printed Referrals: Gianluca Trevino MD [Primary Care Provider] -
--- NOTE | 2019-12-22 19:30 | ED.RN ---
Assisted PT into paper pants, iv removed, pt dressed and wheeled out to lobby and loaded into his personal vehicle. was given discharge instructions, all questions answered, no further concerns.
== END 2019-12-22 19:15 | disposition home or self-care (01) ==
PROVIDERS: Emergency Provider Emergency Medicine; PCP Family Medicine
DX: R11.2 Nausea with vomiting, unspecified (principal); E27.40 Unspecified adrenocortical insufficiency; R05 Cough; I25.10 Atherosclerotic heart disease of native coronary artery without angina pectoris; E03.9 Hypothyroidism, unspecified; I10 Essential (primary) hypertension; E11.9 Type 2 diabetes mellitus without complications; Z79.82 Long term (current) use of aspirin; Z79.899 Other long term (current) drug therapy
CPT/HCPCS: 71045; 74177; 76705; 80053; 81001; 83605; 84484; 85025; 85610; 85730; 87040; 87086; 87088; 87633; 87635; 93005; 96361; 96374; 99283; G2023; J7030; Q9967; A4216; J2405; U0002

== ENCOUNTER 2019-12-24 22:26 | Inpatient (IN) | payer MEDICARE, SELFPAY ==
[2019-12-24 22:30] VITALS: BP 131/64; PULSE 67; RESP 18; TEMP 37.2; O2SAT 96; BMI 27.8
--- NOTE | 2019-12-24 22:56 | EKG12_ITS ---
Test Reason : ABD PAIN Blood Pressure : / mmHG Vent. Rate : 064 BPM Atrial Rate : 064 BPM P-R Int : 184 ms QRS Dur : 098 ms QT Int : 442 ms P-R-T Axes : 009 007 067 degrees QTc Int : 455 ms Normal sinus rhythm ST & T wave abnormality, consider anterior ischemia Abnormal ECG Confirmed by IAN HDEZ ([id number]), industrial editor SARAY LOPES ([id number]) on 12/31/2019 1:41:01 PM Referred By: CHELSIE Confirmed By:IAN HDEZ
[2019-12-24 23:09] LABS: Absolute Lymphocyte Count 1.08 X10^3/uL (0.83-4.51); Absolute Neutrophil Count 10.7 X10^3/uL (2.0-7.7); Basophil# 0.04 X10^3/uL; Basophil% 0.3 % (0-1); Eosinophil# 0.03 X10^3/uL; Eosinophils% 0.2 % (0-5); Hematocrit 35.6 % (40-54); Hemoglobin 12.2 g/dL (13.0-16.5); Lymphocyte # 1.08 X10^3/ul (4.0); Lymphocyte % 8.3 % (19-41); Mean Corp Hgb Conc 34.3 g/dL (32-36); Mean Corpuscular Volume 90.4 fL (80-94); Mean Platelet Vol. 9.5 fl (6.2-12.0); Monocyte# 1.09 X10^3/uL; Monocyte% 8.4 % (0-10); NRBC Flagged by Analyzer 0 % (0-5); Neutrophil # 10.73 X10^3/uL (2.7-7.7); Neutrophil % 82.3 % (47-70); Platelet Count 167 K/mm3 (150-450); RBC Distribution Width CV 13.2 % (11.6-14.6); RBC Distribution Width SD 43.5 fl (35.1-43.9); Red Blood Count 3.94 M/mm3 (4.6-6.2)
[2019-12-24 23:23] LABS: ALB/GLOB Ratio 0.8 RATIO (0.9-2.4); AST(SGOT) 20 U/L (15-37); Alanine Aminotransfer ALT/SGPT 28 U/L (16-61); Alkaline Phosphatase 97 U/L (45-117); Anion Gap 10 (5-15); BUN 13 mg/dL (7-18); BUN/Creat Ratio 11.9 RATIO (10-20); Calcium,Total 8.6 mg/dL (8.5-10.1); Chloride 93 mmol/L (98-107); Creatinine, Serum 1.09 mg/dL (0.70-1.30); EST Glomerular Filtration Rate 70 mL/min (>60); Est Glom Filt Rate - Afr Amer 84 mL/min (>60); Estimated Creatinine Clearance 57.67 ml/min; Glucose 135 mg/dL (74-106); Lipase 69 U/L (73-393); Potassium 3.9 mmol/L (3.5-5.1); Sodium Level 129 mmol/L (136-145)
--- NOTE | 2019-12-24 23:35 | RAD_ITS ---
STUDY: X-RAY CHEST REASON FOR EXAM: Male, 79 years old. COUGH TECHNIQUE: AP portable COMPARISON: 12/22/2019. FINDINGS: The lungs are clear and expanded. There is no demonstrated pleural abnormality. Normal size heart. Normal mediastinum and rd. Normal visualized pulmonary arteries. Normal visualized aortic arch and descending thoracic aorta. There are diffuse degenerative changes of the visualized thoracic spine. Normal visualized ribs, clavicles, and shoulders. There is no demonstrated abnormality of the visualized soft tissue structures of the upper abdomen. RAD/Chest 1 View (Portable) IMPRESSION: Normal x-ray examination of the chest. Electronically Signed: García Hutchinson, at 0:12 EDT Tel , Service support ,
[2019-12-24] MEDS: 0.9% Normal Saline 1,000 ML 150 ML IV (23:49)
[2019-12-24] MEDS: Ondansetron 4 MG/2 ML Vial IV (23:50)
[2019-12-24] MEDS: Morphine 4 MG/ML Syringe IV (23:51)
[2019-12-24 23:53] VITALS: BP 132/66; PULSE 63; RESP 20; TEMP 37.2; O2SAT 98
[2019-12-25] VITALS (15 sets, daily range): BP systolic 102–160; BP diastolic 60–89; PULSE 57–80; RESP 16–19; TEMP 36.2–37.5; O2SAT 95–142; BMI 26.3
--- NOTE | 2019-12-25 00:41 | ED.DCSUM_ITS ---
- ER Visit Summary Date of Service: 12/25/19 Chief Complaint: Abdominal and chest pain History of Present Illness: The patient is a [address] Jacobsen. He is a poor informant. He reports that he has epigastric pain that began at 2:00 this afternoon. It is an intermittent pain that lasts minutes at a time. He describes it as a pressure. 3 of 10 currently and at worst. States is worsened by movement and food. Is relieved by nothing. Is had nausea without vomiting. His last bowel was yesterday. No melena medication. No dysuria or frequency. Patient reports that he was seen in the emerge department 2 days ago and was diagnosed with gallbladder problems and this is similar to that. Physical Examination: Vitals: Stable. Afebrile. General: Well-nourished and well-developed. Head: Normocephalic atraumatic. Neck: Supple, no lymphadenopathy. No JVD. Nontender. Cardiovascular: Regular rate and rhythm. No murmurs. Respiratory: No respiratory distress. Clear to auscultation bilaterally. Abdominal: Soft, moderate tenderness palpation right upper quadrant, positive Kearney sign, nondistended, normal bowel sounds. No guarding, rebound, or peritoneal signs. Back: Nontender. Extremities: Nontender, no edema. Skin: Normal color, no rash. Neurologic: Alert and oriented ?3. Cranial nerves II through XII are intact. Normal strength and sensation. Psych: Normal affect. Test Results: EKG is sinus at 64 with. No lesions in leads V2 to V5. This is a change from 2 days ago. Troponin is negative. LFTs show an albumin of 3.0 and a total bili of 2.4. His bilirubin was 1.1 2 days ago. His lipase is 69. Chem-7 shows a sodium 129, chloride 93, glucose 135. CBC shows a white count of 13.0 (10.22 days ago) H&H 12.2 and 35.6, segmented feels 82, lymphocytes of 8. Chest x-ray shows chronic changes. Ultrasound from 2 days ago was reviewed. It showed gallbladder sludge, but no evidence of cholecystitis. This was not repeated tonight. Emergency Department Course and Treatment: Patient did not have his ultrasound repeated tonight as they are not in house. He was given morphine, Zofran, and Zosyn IV. His labs are consistent with cholecystitis. He was given morphine, Zofran, and Zosyn IV. Treatment Plan: He has an increase in his total bili and his white count. Clinically I think the patient has cholecystitis. He was discussed with Dr. Reyna Magana. He will be admitted to the hospital for further evaluation and treatment. Disposition: Admitted in improved condition. Impression: 1. Gallbladder sludge. 2. Leukocytosis. 3. Elevated total bilirubin. This note was generated with [employer] dictation software. It may contain incorrect words, spelling, and punctuation that were not noted in review of the chart prior to signing ED Disposition - Plan for ED Patient: Referrals: Gianluca Trevino MD [Primary Care Provider] -
--- NOTE | 2019-12-25 01:54 | PCM.HP.STD ---
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 (2) Secondary adrenal insufficiency Status: Chronic (3) Secondary hypothyroidism Status: Chronic (4) pituitary macroadenoma resection Status: Chronic (5) Pituitary adenoma Status: Resolved (6) Hx of left breast biopsy Status: Resolved Comment: Gynecomastia only on biopsy 04/28/2019 (7) Left breast lump Status: Acute (8) Abnormal ultrasound of breast Status: Acute (9) Hx of colonoscopy Status: Resolved (10) History of back surgery Status: Resolved Comment: L3& L4 Fusion (11) Hx of elbow surgery Status: Resolved Comment: Left (12) Arthritis Status: Chronic (13) Hx of heart artery stent Status: Chronic Comment: X6 (14) History of heart attack Status: Chronic (15) Low back problem Status: Chronic (16) Fatigue Status: Acute (17) Cholecystitis Status: Suspected History of Present Illness Date of Admission: 12/25/19 Chief Complaint: abdominal pain The patient is a 79 year old M currently poor historian has been having had received some morphine prior to my arrival. The patient has been having abdominal pain in the right upper quadrant for several days. Was seen here on the nin and had an ultrasound that was bilirubin was up to 2.4 and a white count was 13,000. The general surgery service was contacted through the emergency room and recommended admission to the hospitalist with consultation to surgery for potential surgery at some point today. [] Past Medical History Past Medical History (Chronic Problems): Chronic Problems (Last Updated 11/09/19 @ 16:[address] Daniel Cheema MD) 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) Secondary adrenal insufficiency (Chronic) 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) Arthritis (Chronic) Hx of heart artery stent (Chronic) X6 History of heart attack (Chronic) Low back problem (Chronic) Medical History: Medical History (Last Reviewed 12/25/19 @ 01:[address] Sigifredo Barry DO) Secondary adrenal insufficiency (Chronic) E27.49 Secondary hypothyroidism (Chronic) E03.8 pituitary macroadenoma resection (Acute) Left breast lump (Acute) N63.20 Abnormal ultrasound of breast (Acute) R92.8 Arthritis (Chronic) M19.90 History of heart attack (Chronic) I25.2 Low back problem (Chronic) M53.9 Fatigue (Acute) R53.83 Allergies No Known Allergies Allergy (Verified 12/24/19 22:35) Home Medications: Ambulatory Orders Medication Instructions Recorded Aspirin [Aspirin, Baby] 81 mg PO DAILY@0800 11/17/15 [place]-3 Fatty Acids [Fish Oil] 1,000 mg PO DAILY 11/17/15 atenolol 25 mg tablet 25 mg PO DAILY 04/24/19 cholecalciferol (vitamin D3) 50 2,000 unit PO DAILY 04/24/19 mcg (2,000 unit) capsule tamsulosin 0.4 mg capsule 0.4 mg PO DAILY cap 04/24/19 trazodone 50 mg tablet 50 mg PO QHS 04/24/19 Escitalopram Oxalate 10 mg PO DAILY 10/24/19 Finasteride 5 mg PO DAILY 10/24/19 Levothyroxine [Synthroid] 100 mcg PO DAILY 10/24/19 Losartan Potassium [Cozaar] 25 mg PO DAILY 10/24/19 Metformin HCl [Metformin HCl ER] 500 mg PO DAILY 10/24/19 Azelastine HCl [Astelin] 2 spray NARES 4X/DAY 11/01/19 Nitroglycerin 2.5 mg PO PRN PRN 11/01/19 Acetaminophen [Tylenol Tablet] 650 mg PO Q6H PRN PRN tab 11/03/19 Menthol/Lanolin/Calamine/Znox 1 applic TOPICAL BID #1 tube 11/03/19 [Calmoseptine Ointment] Ondansetron [Zofran Odt] 4 mg PO Q8H PRN PRN #10 tab 11/04/19 hydrocortisone 10 mg tablet See Rx Instructions PO TID #90 tab 11/09/19 Ondansetron [Zofran Odt] 4 mg PO Q8H PRN PRN #10 tab 12/22/19 Pantoprazole Sodium [Protonix] 40 mg PO DAILY 12/22/19 Surgical History: Surgical History (Last Reviewed 12/25/19 @ 01:[address] Sigifredo Barry, DO) Hx of left breast biopsy (Resolved) Z98.890 Gynecomastia only on biopsy 04/28/2019 Hx of colonoscopy (Resolved) Z98.890 History of back surgery (Resolved) Z98.890 L3& L4 Fusion Hx of elbow surgery (Resolved) Z98.890 Left Hx of heart artery stent (Chronic) Z95.5 X6 Surgical History: - - Status post elbow surgery, back surgery, s/p 6 cardiac stents Psychiatric History: No pertinent psych hx Smoking Status: Never smoker - *Family History Maternal Family History: Family History (Last Reviewed 12/25/19 @ 01:[address] Sigifredo Barry DO) Mother Skin cancer Cancer Sister Cancer History Items: Cancer Paternal Family History: Family History (Last Reviewed 12/25/19 @ 01:[address] Sigifredo Brary DO) Mother Skin cancer Cancer Sister Cancer History Items: Heart Disease - [place] Review of Systems Gastrointestinal: Reports: Abdominal Pain, Nausea Comment: Patient is a poor historian as he just received morphine. Review of systems cannot be reliably obtained at this time. VTE Information - Inpt Only VTE Present on Admission: No Patient Problems: Active and Suspected Problems (Last Updated 11/09/19 @ 16:[address] Daniel Cheema MD) Cholecystitis (Suspected) - Physical Exam Vitals/I&O's: Vital Signs Temp Pulse Resp BP Pulse Ox 37.4 C H 57 L 19 H 134/66 H 95 12/25/19 00:57 12/25/19 00:57 12/25/19 00:57 12/25/19 00:57 12/25/19 00:57 Oxygen Delivery Method Room Air Weight: 88 kg Body Mass Index (BMI) 27.8 General: - - Awake. Groggy. HEENT: Atraumatic, Normocephalic Oral: Moist Mucosa, No Gingival or Mucosal Lesions/ Ulcerations Lungs: Clear to auscultation, Normal air movement, No rhonchi, No wheeze Cardiovascular: Regular rate, Regular Rhythm, Normal S1, Normal S2, No murmurs Abdomen: Bowel Sounds Present, Soft, Non-Distended, No Hepato-splenomegaly, Tender - Right upper quadrant. Unable to elicit a Kearney's sign Extremities: No clubbing, No edema Skin: No rashes, No breakdown Laboratory Results 12/24/19 22:42: WBC 13.0 H, RBC 3.94 L, Hgb 12.2 L, Hct 35.6 L, MCV 90.4 D, MCH 31.0, MCHC 34.3 D, RDW Std Deviation 43.5, RDW Coeff of Delisa 13.2, Plt Count 167, MPV 9.5, Immature Gran % (Auto) 0.500, Neut % (Auto) 82.3 H, Lymph % (Auto) 8.3 L, [place] % (Auto) 8.4, Eos % (Auto) 0.2, Baso % (Auto) 0.3, Absolute Neuts (auto) 10.7 H, Absolute Lymphs (auto) 1.08, Nucleated RBC % 0 12/24/19 22:42: Sodium 129 L, Potassium 3.9, Chloride 93 L, Carbon Dioxide 26.0, Anion Gap 10, BUN 13, Creatinine 1.09, Estim Creat Clear Calc 57.67, Est GFR (MDRD) Af Amer 84, Est GFR (MDRD) Non-Af 70, BUN/Creatinine Ratio 11.9, Glucose 135 H, Calcium 8.6, Total Bilirubin 2.40 H, AST 20, ALT 28, Alkaline Phosphatase 97, Troponin I < 0.015, Total Protein 7.0, Albumin 3.0 L, Globulin 4.0, Albumin/Globulin Ratio 0.8 L, Lipase 69 L Clinical Impression(s) from Imaging Studies Chest X-Ray 12/24/19 23:35 IMPRESSION: Normal x-ray examination of the chest. Electronically Signed: García Hutchinson, at 0:12 EDT Tel , Service support , EKG reviewed and showed normal sinus rhythm with first-degree AV block and some PVCs. Right upper quadrant ultrasound performed on the showed a gallbladder sludge but no evidence of acute cholecystitis. Current Medications Sodium Chloride () 1,000 mls @ 150 mls/hr IV .Q6H40M [facility] Last Admin: 12/24/19 23:49 Dose: 150 mls/hr Documented by: Assessment/Plan All Active Problems (Last Updated 11/09/19 @ 16:[address] Daniel Cheema MD) Pituitary adenoma (Resolved) Hx of left breast biopsy (Resolved) Left breast lump (Acute) Abnormal ultrasound of breast (Acute) Hx of colonoscopy (Resolved) History of back surgery (Resolved) Hx of elbow surgery (Resolved) Fatigue (Acute) 1. Suspected acute cholecystitis: Ultrasound performed 2 days ago showed sludge but no evidence of acute cholecystitis. Since then his white count has gone up as well as his bilirubin. General surgery be on consultation. Patient will be n.p.o. IV antibiotics with Pipracil and/tazobactam for now. Pain control sinuses not making him too groggy which she appears to be so at this time. 2. Diabetes mellitus type 2: With holding his medications patient be on a sliding scale insulin for now. 3. VTE prophylaxis: SCDs for now and then low molecular weight heparin postoperatively. 4. Advanced care planning: Cannot obtain from patient as he is too groggy to provide adequate information. Inpatient E&M: [id number] Init Hosp L3
[2019-12-25] MEDS: 0.9% Normal Saline 1,000 ML 100 ML IV ×3 (03:01→23:20)
[2019-12-25] MEDS: Ondansetron 4 MG/2 ML Vial IV (05:43)
[2019-12-25 05:50] LABS: Bedside Glucose 131 mg/dL (70-110)
[2019-12-25 06:36] LABS: Absolute Lymphocyte Count 1.09 X10^3/uL (0.83-4.51); Absolute Neutrophil Count 8.9 X10^3/uL (2.0-7.7); Basophil# 0.04 X10^3/uL; Basophil% 0.4 % (0-1); Eosinophil# 0.06 X10^3/uL; Eosinophils% 0.5 % (0-5); Hematocrit 35.4 % (40-54); Hemoglobin 11.8 g/dL (13.0-16.5); Lymphocyte # 1.09 X10^3/ul (4.0); Lymphocyte % 9.9 % (19-41); Mean Corp Hgb Conc 33.3 g/dL (32-36); Mean Corpuscular Hgb 30.6 pg (27.0-32.0); Mean Corpuscular Volume 91.7 fL (80-94); Mean Platelet Vol. 9.4 fl (6.2-12.0); Monocyte# 0.89 X10^3/uL; Monocyte% 8.1 % (0-10); NRBC Flagged by Analyzer 0 % (0-5); Neutrophil % 80.5 % (47-70); Platelet Count 162 K/mm3 (150-450); RBC Distribution Width CV 13.2 % (11.6-14.6); RBC Distribution Width SD 44.1 fl (35.1-43.9); Red Blood Count 3.86 M/mm3 (4.6-6.2); White Blood Count 11.1 K/mm3 (4.4-11.0)
[2019-12-25 07:03] LABS: ALB/GLOB Ratio 0.7 RATIO (0.9-2.4); AST(SGOT) 20 U/L (15-37); Alanine Aminotransfer ALT/SGPT 27 U/L (16-61); Albumin, Serum 2.6 g/dL (3.2-5.0); Alkaline Phosphatase 95 U/L (45-117); Anion Gap 7 (5-15); BUN 13 mg/dL (7-18); BUN/Creat Ratio 12.4 RATIO (10-20); Calcium,Total 8.3 mg/dL (8.5-10.1); Chloride 97 mmol/L (98-107); Creatinine, Serum 1.05 mg/dL (0.70-1.30); EST Glomerular Filtration Rate 73 mL/min (>60); Est Glom Filt Rate - Afr Amer 88 mL/min (>60); Estimated Creatinine Clearance 59.87 ml/min; Globulin 3.7 g/dL (2.2-4.2); Glucose 127 mg/dL (74-106); Potassium 3.8 mmol/L (3.5-5.1); Protein, Total 6.3 g/dL (6.4-8.2); Sodium Level 130 mmol/L (136-145)
[2019-12-25 08:49] LABS: Hemoglobin A1c 5.9 % (4.2-6.3)
--- NOTE | 2019-12-25 08:53 | PCM.CONS.C ---
Problem List (1) CAD in [place] artery Status: Chronic (2) Hx of heart artery stent Status: Chronic Comment: X6 (3) Cholecystitis Status: Suspected (4) Preop cardiovascular exam Status: Acute Reason for Consult Date of Consultation: 12/25/19 History of Present Illness: The patient is a 79 year old old white male with a past cardiovascular history which is included CAD and PCI who presents for concerns of acute cholecystitis with a cardiovascular consultation for preoperative cardiovascular evaluation. The patient has been previously followed by [facility] cardiology. He states he does not recall undergoing any cardiovascular diagnostic studies/procedures in it released 1 year or greater. He states he has had routine outpatient follow-up as he has been feeling well from a cardiac standpoint. He denies any symptoms of angina pectoris and states he has not had to use any nitroglycerin sublingual tablets at home. There is been no issues of obvious CHF or pulmonary edema. He has had no issues of near syncope or syncope. He presented recently with abdominal discomfort, nausea, and emesis. He has been diagnosed with underlying acute cholecystitis and is pending a laparoscopic cholecystectomy. As part of his evaluation he is undergone cardiac enzymes. His troponin I levels have been negative. He has had ECGs performed which have demonstrated sinus rhythm with T wave abnormality consider nonspecific and/or potentially compatible with myocardial ischemia in the anterior anterolateral distributions which have not demonstrated a significant change compared with previous ECG from 08-13-2019. Chest x-ray revealed no acute cardiopulmonary disease process. There are no other cardiovascular studies from [facility] available at this time for review. [] Past Medical History Allergies/Adverse Reactions: Allergies No Known Allergies Allergy (Verified 12/24/19 22:35) Home Medications: Ambulatory Orders Medication Instructions Recorded Aspirin [Aspirin, Baby] 81 mg PO DAILY@0800 11/17/15 [place]-3 Fatty Acids [Fish Oil] 1,000 mg PO DAILY 11/17/15 atenolol 25 mg tablet 25 mg PO DAILY 04/24/19 cholecalciferol (vitamin D3) 50 2,000 unit PO DAILY 04/24/19 mcg (2,000 unit) capsule tamsulosin 0.4 mg capsule 0.4 mg PO DAILY cap 04/24/19 trazodone 50 mg tablet 50 mg PO QHS 04/24/19 Escitalopram Oxalate 10 mg PO DAILY 10/24/19 Finasteride 5 mg PO DAILY 10/24/19 Levothyroxine [Synthroid] 100 mcg PO DAILY 10/24/19 Losartan Potassium [Cozaar] 25 mg PO DAILY 10/24/19 Metformin HCl [Metformin HCl ER] 500 mg PO DAILY 10/24/19 Azelastine HCl [Astelin] 2 spray NARES 4X/DAY 11/01/19 Nitroglycerin 2.5 mg PO PRN PRN 11/01/19 Acetaminophen [Tylenol Tablet] 650 mg PO Q6H PRN PRN tab 11/03/19 Menthol/Lanolin/Calamine/Znox 1 applic TOPICAL BID #1 tube 11/03/19 [Calmoseptine Ointment] Ondansetron [Zofran Odt] 4 mg PO Q8H PRN PRN #10 tab 11/04/19 hydrocortisone 10 mg tablet See Rx Instructions PO TID #90 tab 11/09/19 Ondansetron [Zofran Odt] 4 mg PO Q8H PRN PRN #10 tab 12/22/19 Pantoprazole Sodium [Protonix] 40 mg PO DAILY 12/22/19 Past Medical History (Chronic Problems): Chronic Problems (Last Reviewed 12/25/19 @ 01:[address] Sigifredo Barry DO) CAD in [place] artery (Chronic) 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) Secondary adrenal insufficiency (Chronic) 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) Arthritis (Chronic) Hx of heart artery stent (Chronic) X6 History of heart attack (Chronic) Low back problem (Chronic) Surgical History: - - Status post elbow surgery, back surgery, s/p 6 cardiac stents Psychiatric History: No pertinent psych hx - *Family History Maternal Family History: Family History (Last Reviewed 12/25/19 @ 01:[address] Sigifredo Barry DO) Mother Skin cancer Cancer Sister Cancer History Items: Cancer Paternal Family History: Family History (Last Reviewed 12/25/19 @ 01:[address] Sigifredo Barry DO) Mother Skin cancer Cancer Sister Cancer History Items: Heart Disease - [place] Smoking Status: Never smoker Review of Systems - Review of Systems General: Denies: Fever, Night Sweats, Fatigue Cardiovascular: Denies: Chest Discomfort, Shortness of Breath, Orthopnea, PND, Peripheral Edema, Palpitations, Lightheadedness, Dizziness, Near Syncope, Syncope Respiratory: Denies: Cough, Sputum Production, Hemoptysis Gastrointestinal: Reports: Abdominal Discomfort, Nausea, Emesis. Denies: Hematemesis, Hematochezia, Melena Genitourinary: Denies: Dysuria, Hematuria Skin: Denies: Rash Subjectve: This is a 79-year-old white male appears to be resting comfortably at the moment in no acute distress. Objective: Vital Signs Temp Pulse Resp BP Pulse Ox 98.7 F 59 L 18 130/67 H 97 12/25/19 02:55 12/25/19 02:55 12/25/19 02:55 12/25/19 02:55 12/25/19 02:55 Oxygen Delivery Method Room Air Weight: 183 lb 6.793 oz Body Mass Index (BMI) 26.3 Intake and Output for Last 24 Hours 12/23/19 12/24/19 12/25/19 23:59 23:59 23:59 Intake Total 583.5 / 583.5 Output Total 500 / 500 Balance 83.5 / 83.5 General: Awake, Alert, Oriented x 3, Cooperative, No Acute Distress HEENT: Atraumatic, Normocephalic, PERRL, EOMI, Sclera Non Icteric Oral: Moist Mucosa Neck: Supple, Good ROM, No JVD Lungs: Clear to auscultation Cardiovascular: Regular Rhythm, Normal S1, Normal S2 Abdomen: Bowel Sounds Present, Soft Extremities: No Cyanosis, No Clubbing, No edema 12/24/19 22:42: WBC 13.0 H, RBC 3.94 L, Hgb 12.2 L, Hct 35.6 L, MCV 90.4 D, MCH 31.0, MCHC 34.3 D, Plt Count 167, MPV 9.5, Immature Gran % (Auto) 0.500, Neut % (Auto) 82.3 H, Lymph % (Auto) 8.3 L, [place] % (Auto) 8.4, Eos % (Auto) 0.2, Baso % (Auto) 0.3, Absolute Neuts (auto) 10.7 H, Nucleated RBC % 0 12/24/19 22:42: Sodium 129 L, Potassium 3.9, Chloride 93 L, Carbon Dioxide 26.0, Anion Gap 10, BUN 13, Creatinine 1.09, Est GFR (MDRD) Af Amer 84, Est GFR (MDRD) Non-Af 70, BUN/Creatinine Ratio 11.9, Glucose 135 H, Calcium 8.6, Total Bilirubin 2.40 H, Troponin I < 0.015 12/25/19 06:16: WBC 11.1 H, RBC 3.86 L, Hgb 11.8 L, Hct 35.4 L, MCV 91.7, MCH 30.6, MCHC 33.3, Plt Count 162, MPV 9.4, Immature Gran % (Auto) 0.600, Neut % (Auto) 80.5 H, Lymph % (Auto) 9.9 L, [place] % (Auto) 8.1, Eos % (Auto) 0.5, Baso % (Auto) 0.4, Absolute Neuts (auto) 8.9 H, Nucleated RBC % 0 12/25/19 06:16: Sodium 130 L, Potassium 3.8, Chloride 97 L, Carbon Dioxide 26.0, Anion Gap 7, BUN 13, Creatinine 1.05, Est GFR (MDRD) Af Amer 88, Est GFR (MDRD) Non-Af 73, BUN/Creatinine Ratio 12.4, Glucose 127 H, Calcium 8.3 L, Total Bilirubin 2.20 H 12/25/19 06:16: Hemoglobin A1c 5.9 EKG: As noted above Assessment/Plan 1. CAD status post PCI The patient has a history of CAD status post PCI. The details of his cardiovascular history are unknown at this time. A request has been made for [facility] cardiovascular records for continuity of care. He has been on medical therapy. Based upon his home medication list this appears compatible with aspirin and an ARB. Has not been on additional antiplatelet therapy. It does not appear he has been on a beta-nevaeh or a lipid-lowering agent. At the present time he will be asked to have an echocardiogram performed to assess his left ventricular wall motion and systolic function to assist with his ongoing evaluation and care. Otherwise it does not appear he requires other cardiovascular testing/procedures at this time barring a change in his clinical course or other objective findings. 2. Acute cholecystitis He will continue under the care of internal medicine and general surgery. 3. Preoperative cardiovascular assessment From a cardiovascular standpoint, barring a change in his clinical status or objective findings, he should proceed with his general surgical procedure with close monitoring of his cardiac rate, rhythm, and blood pressure during and following his surgical procedure. An attempt should be made to avoid excess IV volume overload during and following his surgical procedure. It would not be unreasonable following surgery to place the patient on telemetry monitoring to monitor for any obvious cardiac dysrhythmia concerns. He can have additional post surgical cardiovascular studies as deemed appropriate. Certainly based on his cardiovascular history he does have an element of increased risk for adverse cardiovascular events from noncardiac surgery. Hopefully based upon what appears to be a stable clinical cardiovascular status with close monitoring, etc., these risk can be At a minimum. Comment: The patient's case has been discussed and reviewed with the patient and Dr. Magana. This note was generated using a voice recognition system and there may be incorrect words, spelling or punctuation that were not noted when reviewing the office note prior to saving.
--- NOTE | 2019-12-25 10:23 | CON.PCM_ITS ---
Problem List (1) Cholecystitis Status: Suspected Reason for Consult Date of Consultation: 12/25/19 History of Present Illness: The patient is a 79 year old M who presented to the emergency room yesterday evening with right upper quadrant pain. The patient was in the emergency room a few days prior and had lab work which was normal and had an ultrasound of the right upper quadrant which showed a 3 mm gallbladder wall with sludge. The patient went home but returned to the emergency room and now he has an elevated white count is still complaining of right upper quadrant pain. He does have not have any nausea or vomiting. He denies any fevers or chills. He reports pain is in the right upper quadrant and does not radiate. Past Medical History Past Medical History (Chronic Problems): Chronic Problems (Last Reviewed 12/25/19 @ 01:[address] 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 Sigifredo Barry DO) Secondary adrenal insufficiency (Chronic) E27.49 Secondary hypothyroidism (Chronic) E03.8 pituitary macroadenoma resection (Chronic) Left breast lump (Acute) N63.20 Abnormal ultrasound of breast (Acute) R92.8 Arthritis (Chronic) M19.90 History of heart attack (Chronic) I25.2 Low back problem (Chronic) M53.9 Fatigue (Acute) R53.83 Allergies No Known Allergies Allergy (Verified 12/24/19 22:35) Home Medications: Ambulatory Orders Medication Instructions Recorded Aspirin [Aspirin, Baby] 81 mg PO DAILY@0800 11/17/15 [place]-3 Fatty Acids [Fish Oil] 1,000 mg PO DAILY 11/17/15 atenolol 25 mg tablet 25 mg PO DAILY 04/24/19 cholecalciferol (vitamin D3) 50 2,000 unit PO DAILY 04/24/19 mcg (2,000 unit) capsule tamsulosin 0.4 mg capsule 0.4 mg PO DAILY cap 04/24/19 trazodone 50 mg tablet 50 mg PO QHS 04/24/19 Escitalopram Oxalate 10 mg PO DAILY 10/24/19 Finasteride 5 mg PO DAILY 10/24/19 Levothyroxine [Synthroid] 100 mcg PO DAILY 10/24/19 Losartan Potassium [Cozaar] 25 mg PO DAILY 10/24/19 Metformin HCl [Metformin HCl ER] 500 mg PO DAILY 10/24/19 Azelastine HCl [Astelin] 2 spray NARES 4X/DAY 11/01/19 Nitroglycerin 2.5 mg PO PRN PRN 11/01/19 Acetaminophen [Tylenol Tablet] 650 mg PO Q6H PRN PRN tab 11/03/19 Menthol/Lanolin/Calamine/Znox 1 applic TOPICAL BID #1 tube 11/03/19 [Calmoseptine Ointment] Ondansetron [Zofran Odt] 4 mg PO Q8H PRN PRN #10 tab 11/04/19 hydrocortisone 10 mg tablet See Rx Instructions PO TID #90 tab 11/09/19 Ondansetron [Zofran Odt] 4 mg PO Q8H PRN PRN #10 tab 12/22/19 Pantoprazole Sodium [Protonix] 40 mg PO DAILY 12/22/19 Surgical History: Surgical History (Last Reviewed 12/25/19 @ 01:[address] Sigifredo Barry DO) Hx of left breast biopsy (Resolved) Z98.890 Gynecomastia only on biopsy 04/28/2019 Hx of colonoscopy (Resolved) Z98.890 History of back surgery (Resolved) Z98.890 L3& L4 Fusion Hx of elbow surgery (Resolved) Z98.890 Left Hx of heart artery stent (Chronic) Z95.5 X6 Surgical History: - - Status post elbow surgery, back surgery, s/p 6 cardiac stents Psychiatric History: No pertinent psych hx Smoking Status: Never smoker - *Family History Maternal Family History: Family History (Last Reviewed 12/25/19 @ 01:[address] Sigifredo Barry DO) Mother Skin cancer Cancer Sister Cancer History Items: Cancer Paternal Family History: Family History (Last Reviewed 12/25/19 @ 01:[address] Sigifredo Barry DO) Mother Skin cancer Cancer Sister Cancer History Items: Heart Disease - [place] Review of Systems Constitutional: Denies: Anorexia, Fever Eyes: Denies: Blurred vision HEENT: Denies: Difficulty Swallowing Cardiovascular: Denies: Chest Pain Respiratory: Denies: Cough Gastrointestinal: Reports: Abdominal Pain. Denies: Nausea, Vomiting Genitourinary: Denies: Dysuria Neurological: Denies: Balance problems Psychiatric: Denies: Anxiety Hematologic/ Lymphatic: Denies: Adenopathy Patient Problems: Active and Suspected Problems (Last Reviewed 12/25/19 @ 01:[address] Sigifredo Barry, DO) Cholecystitis (Suspected) Preop cardiovascular exam (Acute) - Physical Exam Vitals/I&O's: Vital Signs Temp Pulse Resp BP Pulse Ox 98.2 F 59 L 18 130/67 H 95 12/25/19 09:00 12/25/19 09:00 12/25/19 09:00 12/25/19 09:00 12/25/19 09:00 Oxygen Delivery Method Room Air Weight: 183 lb 6.793 oz Body Mass Index (BMI) 26.3 Intake and Output for Last 24 Hours 12/23/19 12/24/19 12/25/19 23:59 23:59 23:59 Intake Total 633.5 / 633.5 Output Total 500 / 500 Balance 133.5 / 133.5 General: Alert, Cooperative, No apparent distress Neck: No JVD Lungs: Normal air movement Cardiovascular: Regular rate, Regular Rhythm Abdomen: Soft, Non-Distended, Tender - Tender right upper quadrant no guarding or rebound Laboratory Results 12/24/19 22:42: WBC 13.0 H, RBC 3.94 L, Hgb 12.2 L, Hct 35.6 L, MCV 90.4 D, MCH 31.0, MCHC 34.3 D, RDW Std Deviation 43.5, RDW Coeff of Delisa 13.2, Plt Count 167, MPV 9.5, Immature Gran % (Auto) 0.500, Neut % (Auto) 82.3 H, Lymph % (Auto) 8.3 L, Nobles % (Auto) 8.4, Eos % (Auto) 0.2, Baso % (Auto) 0.3, Absolute Neuts (auto) 10.7 H, Absolute Lymphs (auto) 1.08, Nucleated RBC % 0 12/24/19 22:42: Sodium 129 L, Potassium 3.9, Chloride 93 L, Carbon Dioxide 26.0, Anion Gap 10, BUN 13, Creatinine 1.09, Estim Creat Clear Calc 57.67, Est GFR (MDRD) Af Amer 84, Est GFR (MDRD) Non-Af 70, BUN/Creatinine Ratio 11.9, Glucose 135 H, Calcium 8.6, Total Bilirubin 2.40 H, AST 20, ALT 28, Alkaline Phosphatase 97, Troponin I < 0.015, Total Protein 7.0, Albumin 3.0 L, Globulin 4.0, Albumin/Globulin Ratio 0.8 L, Lipase 69 L 12/25/19 05:32: POC Glucose 131 H 12/25/19 06:16: WBC 11.1 H, RBC 3.86 L, Hgb 11.8 L, Hct 35.4 L, MCV 91.7, MCH 30.6, MCHC 33.3, RDW Std Deviation 44.1 H, RDW Coeff of Delisa 13.2, Plt Count 162, MPV 9.4, Immature Gran % (Auto) 0.600, Neut % (Auto) 80.5 H, Lymph % (Auto) 9.9 L, Nobles % (Auto) 8.1, Eos % (Auto) 0.5, Baso % (Auto) 0.4, Absolute Neuts (auto) 8.9 H, Absolute Lymphs (auto) 1.09, Nucleated RBC % 0 12/25/19 06:16: Sodium 130 L, Potassium 3.8, Chloride 97 L, Carbon Dioxide 26.0, Anion Gap 7, BUN 13, Creatinine 1.05, Estim Creat Clear Calc 59.87, Est GFR (MDRD) Af Amer 88, Est GFR (MDRD) Non-Af 73, BUN/Creatinine Ratio 12.4, Glucose 127 H, Calcium 8.3 L, Total Bilirubin 2.20 H, AST 20, ALT 27, Alkaline Phosphatase 95, Total Protein 6.3 L, Albumin 2.6 L, Globulin 3.7, Albumin/Globulin Ratio 0.7 L 12/25/19 06:16: Hemoglobin A1c 5.9 Current Medications Dextrose (D50w Syringe) 0 gm IV X1 PRN; Protocol PRN Reason: Hypoglycemia Glucagon () 1 mg IM .X1 PRN PRN Reason: Hypoglycemia Sodium Chloride () 1,000 mls @ 100 mls/hr IV .Q10H ANAHI Last Admin: 12/25/19 03:01 Dose: 100 mls/hr Documented by: Piperacillin Sod/Tazobactam (Sod 3.375 gm/ Sodium Chloride) 50 mls @ 12.5 mls/hr IV Q8 ANAHI Last Infusion: 12/25/19 09:42 Dose: Infused Documented by: Sodium Chloride () 250 mls @ 15 mls/hr IV .[id number] PRN PRN Reason: Saline Flush Last Infusion: 12/25/19 05:46 Dose: 0 mls/hr Documented by: Sodium Chloride () 250 mls @ 15 mls/hr IV .[id number] PRN PRN Reason: Additional IVPB Infusion Insulin Human Lispro (Humalog Kwikpen (Bkc)) 0 unit SC Q6 ANAHI; Protocol Last Admin: 12/25/19 05:36 Dose: Not Given Documented by: Morphine Sulfate () 2 mg IV Q3H PRN PRN PRN Reason: Pain Score 6-10/10 Ondansetron HCl (Zofran) 4 mg IV Q8H PRN PRN PRN Reason: NAUSEA/VOMITING Last Admin: 12/25/19 05:43 Dose: 4 mg Documented by: Sodium Chloride () 10 - 40 ml IV UD PRN PRN Reason: SALINE FLUSH Assessment/Plan All Active Problems (Last Reviewed 12/25/19 @ 01:[address] Sigifredo Barry, ) Preop cardiovascular exam (Acute) Pituitary adenoma (Resolved) Hx of left breast biopsy (Resolved) Left breast lump (Acute) Abnormal ultrasound of breast (Acute) Hx of colonoscopy (Resolved) History of back surgery (Resolved) Hx of elbow surgery (Resolved) Fatigue (Acute) 79-year-old male with acute cholecystitis 1. The patient seems to have acute cholecystitis based on his borderline wall thickening a few days ago and is increased right upper quadrant pain with elevated white count and left shift. I discussed laparoscopic cholecystectomy with the patient and his and his son in detail. Before surgery the patient will have a cardiology consultation and the patient is currently getting an echocardiogram. If these are normal the patient will proceed with laparoscopic cholecystectomy this afternoon. The patient has been kept n.p.o. and is started on antibiotics. His white count is slightly decreased from yesterday. 2. I discussed the procedure in detail with the patient, the patient's and the patient's son. I discussed the risks, benefits, and alternatives of the procedure. I discussed the risks including but not limited to bleeding, infection, injury to surrounding organs such as the liver, bile duct, bowels. I did discuss the possibility of having to convert to an open procedure as well as the possibility that if any injuries occurred this may necessitate further surgery at a tertiary care center. Rusty Magana MD Pager: [facility] [address] [place] [address] [address] [place] [address] Office: Essential Procedure Criteria Procedure Essential: Yes Criteria Note: On 10/30/2019 the [place] Department of Health ([facility]) Public Order signed by [facility] Director Alona Higgins M.D., regarding the Management of Non- Essential Surgeries and Procedures for the purpose of preserving Personal Protective Equipment (PPE) and critical hospital capacity and resources within [place] went into effect as of 10/31/2019 at 5:00PM. According to the [facility] Public Order: This action will remain in full force and effect until the State of Emergency declared by the Governor no longer exists or the Director of the [facility] rescinds or modifies this Order.. This [facility] order stated all non-essential or elective surgeries and procedures that utilize PPE should be delayed unless there is undue risk to the current or future health of a patient. After reviewing the aforementioned [facility] Public Order and the patients clinical case, I have determined that the scheduled procedure meets the criteria to go forward. Risk to Patient if Procedure Delayed: Risk of rapidly worsening to severe symptoms if delayed
--- NOTE | 2019-12-25 10:29 | PN_ITS ---
Patient Problems: Active and Suspected Problems (Last Reviewed 12/25/19 @ 01:[address] Sigifredo Barry, DO) Cholecystitis (Suspected) Preop cardiovascular exam (Acute) Subjective: Patient seen and examined. He was admitted with a complaint of abdominal pain and is been managed for probable acute cholecystitis. Patient still complains of having abdominal pain today. He denies any BUN/Cr, it involved the recovery fever or chills. Review systems otherwise negative. General surgery on board. Cardiology consulted for cardiac clearance for acute cholecystitis. Labs and vitals reviewed. Sodium is 130 today. Bilirubin is down to 2.2 from 2.4 on admission and AST ALT and ALP are within normal range. White cell count is 11.1 and hemoglobin is 11.8. Vitals/I&O's: Vital Signs Temp Pulse Resp BP Pulse Ox 98.2 F 59 L 18 130/67 H 95 12/25/19 09:00 12/25/19 09:00 12/25/19 09:00 12/25/19 09:00 12/25/19 09:00 Oxygen Delivery Method Room Air Weight: 183 lb 6.793 oz Body Mass Index (BMI) 26.3 Intake and Output for Last 24 Hours 12/23/19 12/24/19 12/25/19 23:59 23:59 23:59 Intake Total 633.5 / 633.5 Output Total 500 / 500 Balance 133.5 / 133.5 General: Alert, Oriented x3, Cooperative, No apparent distress HEENT: Atraumatic, PERRLA, EOMI, Normocephalic, - - sclera has tinge of jaundice Oral: Dry Mucosa Neck: Supple, No JVD, Negative Carotid Bruits Lungs: Clear to auscultation, Normal air movement, No rhonchi, No wheeze, No rales Cardiovascular: Regular rate, Regular Rhythm, Normal S1, Normal S2, No murmurs Abdomen: Bowel Sounds Present, Soft, - - mild suprapubic and right lower quadrant tenderness, no guarding or rebound tenderness. Kearney's sign is negative. Extremities: No clubbing, No cyanosis, No edema, Capillary Refill Less than 3 Seconds Skin: No rashes, No breakdown Musculoskeletal: No Tenderness to Palpation of Joints or Extremities Lymphatic: No Cervical, Supraclavicular, or Inguinal Adenopathy Neurological: Cranial nerves II-XII grossly intact, Neuro grossly intact, Motor Exam 5/5 strength throughout Psych/Mental Status: Normal Affect, Appropriate, Alert and oriented to time, place, person, mood and affect Laboratory Results 12/24/19 22:42: WBC 13.0 H, RBC 3.94 L, Hgb 12.2 L, Hct 35.6 L, MCV 90.4 D, MCH 31.0, MCHC 34.3 D, RDW Std Deviation 43.5, RDW Coeff of Delisa 13.2, Plt Count 167, MPV 9.5, Immature Gran % (Auto) 0.500, Neut % (Auto) 82.3 H, Lymph % (Auto) 8.3 L, Vance % (Auto) 8.4, Eos % (Auto) 0.2, Baso % (Auto) 0.3, Absolute Neuts (auto) 10.7 H, Absolute Lymphs (auto) 1.08, Nucleated RBC % 0 12/24/19 22:42: Sodium 129 L, Potassium 3.9, Chloride 93 L, Carbon Dioxide 26.0, Anion Gap 10, BUN 13, Creatinine 1.09, Estim Creat Clear Calc 57.67, Est GFR (MDRD) Af Amer 84, Est GFR (MDRD) Non-Af 70, BUN/Creatinine Ratio 11.9, Glucose 135 H, Calcium 8.6, Total Bilirubin 2.40 H, AST 20, ALT 28, Alkaline Phosphatase 97, Troponin I < 0.015, Total Protein 7.0, Albumin 3.0 L, Globulin 4.0, Albumin/Globulin Ratio 0.8 L, Lipase 69 L 12/25/19 05:32: POC Glucose 131 H 12/25/19 06:16: WBC 11.1 H, RBC 3.86 L, Hgb 11.8 L, Hct 35.4 L, MCV 91.7, MCH 30.6, MCHC 33.3, RDW Std Deviation 44.1 H, RDW Coeff of Delisa 13.2, Plt Count 162, MPV 9.4, Immature Gran % (Auto) 0.600, Neut % (Auto) 80.5 H, Lymph % (Auto) 9.9 L, Vance % (Auto) 8.1, Eos % (Auto) 0.5, Baso % (Auto) 0.4, Absolute Neuts (auto) 8.9 H, Absolute Lymphs (auto) 1.09, Nucleated RBC % 0 12/25/19 06:16: Sodium 130 L, Potassium 3.8, Chloride 97 L, Carbon Dioxide 26.0, Anion Gap 7, BUN 13, Creatinine 1.05, Estim Creat Clear Calc 59.87, Est GFR (MDRD) Af Amer 88, Est GFR (MDRD) Non-Af 73, BUN/Creatinine Ratio 12.4, Glucose 127 H, Calcium 8.3 L, Total Bilirubin 2.20 H, AST 20, ALT 27, Alkaline Phosphatase 95, Total Protein 6.3 L, Albumin 2.6 L, Globulin 3.7, Albumin/Globulin Ratio 0.7 L 12/25/19 06:16: Hemoglobin A1c 5.9 Diagnostic Data Chest X-Ray 12/24/19 23:35 IMPRESSION: Normal x-ray examination of the chest. Electronically Signed: García Hutchinson, at 0:12 EDT Tel , Service support , Current Medications Dextrose (D50w Syringe) 0 gm IV X1 PRN; Protocol PRN Reason: Hypoglycemia Glucagon () 1 mg IM .X1 PRN PRN Reason: Hypoglycemia Sodium Chloride () 1,000 mls @ 100 mls/hr IV .Q10H ANAHI Last Admin: 12/25/19 03:01 Dose: 100 mls/hr Documented by: Piperacillin Sod/Tazobactam (Sod 3.375 gm/ Sodium Chloride) 50 mls @ 12.5 mls/hr IV Q8 ANAHI Last Infusion: 12/25/19 09:42 Dose: Infused Documented by: Sodium Chloride () 250 mls @ 15 mls/hr IV .[id number] PRN PRN Reason: Saline Flush Last Infusion: 12/25/19 05:46 Dose: 0 mls/hr Documented by: Sodium Chloride () 250 mls @ 15 mls/hr IV .[id number] PRN PRN Reason: Additional IVPB Infusion Insulin Human Lispro (Humalog Kwikpen (Bkc)) 0 unit SC Q6 ANAHI; Protocol Last Admin: 12/25/19 05:36 Dose: Not Given Documented by: Morphine Sulfate () 2 mg IV Q3H PRN PRN PRN Reason: Pain Score 6-10/10 Ondansetron HCl (Zofran) 4 mg IV Q8H PRN PRN PRN Reason: NAUSEA/VOMITING Last Admin: 12/25/19 05:43 Dose: 4 mg Documented by: Sodium Chloride () 10 - 40 ml IV UD PRN PRN Reason: SALINE FLUSH STROKE Vital Signs/Narrative: Vital Signs Temp Pulse Resp BP Pulse Ox 12/25/19 09:00 98.2 F 59 L 18 130/67 H 95 Medical Necessity - Tobacco Use Smoking Status: Never smoker Assessment/Plan All Active Problems (Last Reviewed 12/25/19 @ 01:[address] Sigifredo Barry, DO) Preop cardiovascular exam (Acute) Pituitary adenoma (Resolved) Hx of left breast biopsy (Resolved) Left breast lump (Acute) Abnormal ultrasound of breast (Acute) Hx of colonoscopy (Resolved) History of back surgery (Resolved) Hx of elbow surgery (Resolved) Fatigue (Acute) 1. Acute cholecystitis * Total bilirubin is 2.2 this morning, from 2.4 on admission. * White cell count is down to 11.8. * On IV Zosyn. * General surgery on board. For cholecystectomy today. * 2. 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 * cardiology records requested from [facility]. He says his last stent was in 2007 * cardiology consulted for pre-op cardiology risk stratification * 2D echo ordered per cardiology * on aspirin adn ARB. not on any anitplatelet therapy, beta nevaeh or statins. * per cardiology documentation, patient should proceed with general surgical procedure wtih close monitoring of his cardiac rate, rhythm and blood pressure during and following his surgical procedure and to avoid excess IV volume overload during and following surgical procedure. 3. Hyponatremia: * Sodium is 130 today. Was 129 on admission and was 138 on 12/22/2019. * May be due to dehydration due to decreased intake from acute illness. * Will check serum osmolality and continue hydration with IV fluids. * 4. Type 2 diabetes mellitus: On insulin sliding scale. Accu-Cheks AC at bedtime. Home meds on hold for now on account of patient being n.p.o. for surgery. Full DVT prophylaxis: SCDs. We will start Lovenox after surgery CODE STATUS: Full code * Did discuss patient's CODE STATUS with him today and explained the difference between DNR CC, DNR CCA and full code. Patient stated that he wanted everything that could be done for him to be done including CPR and intubation if needed. * Total [id number] time 16 minutes. Inpatient E&M: [id number] [facility] L3
--- NOTE | 2019-12-25 10:45 | CASEMGMT ---
RN CM Face to Face with patient for initial transition planning/care coordination assessment. RN CM introduced self and role at [facility]. Patient lying in bed, alert and oriented. Patient willing to participate in assessment and is able to answer all questions appropriately. Care providers, pharmacy, and demographics verified. Patient wishes to discharge home, denies need for home health at this time. Patient states he has no further needs or concerns at this time. CM to follow for discharge planning needs that may arise. PCP: Belinda Specialists: Brandy grocery shopper Preferred Pharmacy: [facility] Insurance: [facility] Prescription Benefit: yes Living Will/HPOA: yes, Neli Marshall LNOK: , son Living Arrangements: Patient lives with in single story home with 3 steps and railing to enter the home. Patient states he is independent. Transportation: DME/HHC: Patient states he has cane, walker, raised toilet, and built in bench in shower. Patient states he has had [facility] in the past. Disposition Plan: Patient to discharge home with family support and follow-up plans in place. Sepideh BOYER, RN, CM
[2019-12-25 11:40] LABS: Bedside Glucose 119 mg/dL (70-110)
--- NOTE | 2019-12-25 12:44 | NT.THERAPY_ITS ---
Nutrition Therapy Report - History Current diet / nutrition support order:: NPO - Anthropometric Measurements Height:: 5 ft 10 in Weight:: 83.2 kg Body Mass Index (BMI):: 26.3 - Relevant Labs Relevant Labs:: WBC 11.1 K/mm3 (4.4-11.0) H 12/25/19 06:16 RBC 3.86 M/mm3 (4.6-6.2) L 12/25/19 06:16 Hgb 11.8 g/dL (13.0-16.5) L 12/25/19 06:16 Hct 35.4 % (40-54) L 12/25/19 06:16 RDW Std Deviation 44.1 fl (35.1-43.9) H 12/25/19 06:16 Neut % (Auto) 80.5 % (47-70) H 12/25/19 06:16 Lymph % (Auto) 9.9 % (19-41) L 12/25/19 06:16 Absolute Neuts (auto) 8.9 X10^3/uL (2.0-7.7) H 12/25/19 06:16 Sodium 130 mmol/L (136-145) L 12/25/19 06:16 Chloride 97 mmol/L (98-107) L 12/25/19 06:16 Glucose 127 mg/dL (74-106) H 12/25/19 06:16 Calcium 8.3 mg/dL (8.5-10.1) L 12/25/19 06:16 Total Bilirubin 2.20 mg/dL (0.20-1.00) H 12/25/19 06:16 Total Protein 6.3 g/dL (6.4-8.2) L 12/25/19 06:16 Albumin 2.6 g/dL (3.2-5.0) L 12/25/19 06:16 Albumin/Globulin Ratio 0.7 RATIO (0.9-2.4) L 12/25/19 06:16 Lipase 69 U/L (73-393) L 12/24/19 22:42 - Assessment Food / Nutrition-Related History:: Pt reports no PO intake for ~2 days [employer] 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 Reports overall poor appetite/intake for last 3 months. Pt has no reason for decreased PO intake. Believes he has lost 46# x 3 months. Per EMR, wt on 11/01/19 was 199.5#, CBW 183.4#-8% wt loss x 2 months, significant for malnutrition. Tries to drink 1 bottle of Boost or Ensure/day at home to assist w/ wt gain. Of note, A1C WNL this admission. - Nutrition Diagnosis Problem / Etiology / Signs & Symptoms (PES):: Acute, severe malnutrition related to abd pain, decreased appetite as evidenced by PO intake <75% estimated nutritional needs x 3 months, ~8% unintentional wt loss x 2 months Evidence of Malnutrition Exists:: Yes Severe PCM:: Acute Illness - Nutrition Intervention Nutrition Prescription:: [id number] calories/day, 66-76 g protein/day - Food / Nutrient Delivery Interventions Summary of nutrition intervention:: Pt w/ no questions for RDN at this time. Currently NPO pending surgical intervention. Agreeable to ONS when appropriate for PO intake. Nutrition support ordered as / adjusted to:: continue NPO; when appropriate, advance diet as tolerated to regular, low fat. Ensure w/ medpass when PO diet advanced. Nutrition education provided?: No - MNT Monitoring Further MNT monitoring and evaluation required?: Yes MNT Follow-up in:: 3-5 days
--- NOTE | 2019-12-25 13:20 | GALL_PTH ---
PATIENT: KEN ALFRED LOC: MS3 U#:[id number] AGE/SX: 79/M ROOM: DC322 RE12/25/[address]: Dr. Omer Drummond DO : 1940 BED: 1 DIS: 12/27/2019 SPEC #: [id number] RECD: 12/25/19 15:37 STATUS: KHURRAM REGreta #: [id number] MAXIMINO: 12/25/19 13:[address]: Rusty Magana DEPT: SURGICAL PATHOLOGY RECD BY: Vanessa Pittman ENTERED: 12/26/19 09:18 SP TYPE: DONNA KEVIN DR: MD Dr. Sigifredo Johnson DO Dr. 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 Reactive epithelial changes. No stones are identified in the container or in the gallbladder. SJ:sammi 12/27/19 MICROSCOPIC DESCRIPTION Slides are reviewed. GROSS DESCRIPTION Received is one container labeled with the patient's name and designated gallbladder. The specimen consists of a gallbladder measuring 9 x 5 x 2.5 cm. The external surface is smooth and glistening. Focally, it is granular, hemorrhagic and contains cautery artifact. The lumen of the gallbladder contains yellow-green mucoid sludge. No stones are identified in the container or in the gallbladder. The mucosa is bile-stained and without any mass lesions. The gallbladder wall averages 0.5 cm in thickness and is free of mass lesions. Tractor Sweeper Operator sections of the gallbladder and the cystic duct at margin of resection are submitted in one cassette. / AM:sammi 12/26/19 TC:2 CPT: 53614
--- NOTE | 2019-12-25 14:37 | RAD_ITS ---
STUDY: INTRAOPERATIVE CHOLANGIOGRAM. REASON FOR EXAM: Male, 79 years old. LAP VENKAT IN OR -- 1 CINE RUN, 120 images in the single 17.8 SEC, 9.35mGy FLUOROSCOPY TIME (if supplied): ( 17.8 seconds ) minutes/seconds TECHNIQUE: An intraoperative glandular was performed by the surgeon. Imaging was submitted. COMPARISON: None. FINDINGS: The visualized intra and extrahepatic biliary ducts are normal. No intraluminal filling defect is seen. There is free flow of contrast into the duodenum. RAD/Cholangiogram/ O R,Initial IMPRESSION: Unremarkable intraoperative cholangiogram. Electronically Signed: Luis Fontaine, at 15:17 EDT , Service support ,
[2019-12-25] MEDS: Bupiv/Epi 0.25% 30 ML Vial (15:22)
--- NOTE | 2019-12-25 15:31 | PCM.OPRPT ---
Problem List (1) Cholecystitis Status: Suspected Report of Operation Date of Procedure: 12/25/19 Pre-Operative Diagnosis: Acute cholecystitis Post-Operative Diagnosis: Same Surgery/Procedure Performed:: Laparoscopic cholecystectomy with cholangiogram Description of Surgical Findings:: Patient had a very inflamed, tense gallbladder containing purulent material. Wound class III. Normal intraoperative cholangiogram. Specimen's removed: Gallbladder and contents Description of Procedure: After obtaining informed consent patient was brought back to the operating room. General anesthesia was induced. The abdomen was prepped and draped in usual sterile fashion. A small midline incision was made superior to the umbilicus and deepened to the level of fascia. The fascia was elevated and incised. Next the peritoneum was elevated and incised in the same fashion. Finger sweep was performed and the Ordoñez trocar was placed into the abdomen. The balloon was inflated. The abdomen was inflated to 15 mmHg. Next a camera was introduced into the abdomen and the abdomen was inspected. Next under direct visualization three 5-mm ports were placed one subxiphoid and 2 subcostal. The gallbladder was very inflamed. The surrounding fat was bluntly dissected free from the gallbladder and the gallbladder was punctured and aspirated of its contents. There was purulent material aspirated from the gallbladder. Next the gallbladder was elevated and retracted toward the right shoulder. The peritoneum was stripped from the gallbladder. The infundibulum was located and retracted laterally. Next the triangle of Calot was dissected and the cystic duct and cystic artery were identified. Cholangiograms were performed. The Bond clamp was used to clamp across the infundibulum and the catheter needle was inserted into the gallbladder. Under fluoroscopy contrast was instilled into the gallbladder and the common duct, cystic duct as well as proximal hepatic ducts were identified. There was good filling of the duodenum. There were no filling defects noted in the common bile duct. The clamp was removed as well as the needle and the infundibulum was grasped once more. Three hemolock clips were placed across the cystic duct. The cystic duct was then divided leaving 2 clips on the stump. The cystic artery was clipped and divided in the same fashion. The hook cautery was then used to take the gallbladder off of the gallbladder bed. Hemostasis was obtained. Gallbladder fossa was irrigated and no active bleeding or bile leakage was noted. Surgicel powder was sprayed onto the gallbladder fossa. There appeared to be good hemostasis. Next the camera was introduced in the subxiphoid port. An Endopouch bag was placed through the umbilical port and the gallbladder was placed into it. The gallbladder was then removed through the umbilical incision. The camera was then reinserted through the umbilical port. The gallbladder fossa was inspected once more and noted to be hemostatic with no leaking bile. The abdomen was suctioned dry. The 5 mm ports were removed under direct visualization. The umbilical port was then removed and the air was removed from the abdomen. Next using an 0 Vicryl suture the umbilical fascia was closed in a [id number] fashion. The umbilical port site was irrigated local anesthetic was administered to all the incisions. All the incisions were closed with interrupted subcuticular 4-0 Monocryl sutures followed by Steri-Strips and dressings. The patient was awoken and taken to PACU in stable condition. - Admit VTE Documentation VTE Mechan Device Prophylaxis: SCD's
[2019-12-25 17:21] LABS: Bedside Glucose 125 mg/dL (70-110)
[2019-12-25] MEDS: 0.9% Saline Lock 10 ML Syringe IV (19:18)
[2019-12-25] MEDS: Morphine 2 MG/ML Syringe IV ×2 (19:19→23:19)
[2019-12-25 21:43] LABS: Bacteria 0 SEEN /hpf (None Seen); Mucous, Urine 0 SEEN /hpf (<or=2+); Red Blood Cells-Urine 0 SEEN /hpf (0-5); White Blood Cells 0 SEEN /hpf (0-5)
[2019-12-25 22:01] LABS: Color, Urine Yellow (Yellow); Glucose, Dipstick Normal (Normal); Ketone-Dipstick 15 mg/dl (Negative); Leukocyte Esterase-Dipstick Negative /ul (Negative); Nitrite-Dipstick Negative (Negative); Occult Blood-Urine Negative /ul (Negative); Protein-Dipstick Negative (Negative); Urine Bilirubin Dipstick Negative (Negative); Urine Clarity Sl. Cloudy (Clear); Urine Urobilinogen 4 mg/dl (Normal); Urine pH 6.5 (5.0 - 8.0)
[2019-12-25 22:08] LABS: Squamous Epithelial Cells - UA 0-5 SEEN /hpf (0-5)
[2019-12-25 23:31] LABS: Bedside Glucose 123 mg/dL (70-110)
[2019-12-26] VITALS (10 sets, daily range): BP systolic 140–160; BP diastolic 74–90; PULSE 58–82; RESP 16–17; TEMP 36.5–36.9; O2SAT 93–99; BMI 26.3
[2019-12-26 06:26] LABS: Bedside Glucose 128 mg/dL (70-110)
[2019-12-26 06:29] LABS: Absolute Lymphocyte Count 1.01 X10^3/uL (0.83-4.51); Absolute Neutrophil Count 8.2 X10^3/uL (2.0-7.7); Basophil# 0.07 X10^3/uL; Basophil% 0.7 % (0-1); Eosinophil# 0.16 X10^3/uL; Eosinophils% 1.6 % (0-5); Hematocrit 43.6 % (40-54); Hemoglobin 13.6 g/dL (13.0-16.5); Lymphocyte # 1.01 X10^3/ul (4.0); Mean Corp Hgb Conc 31.2 g/dL (32-36); Mean Corpuscular Hgb 30.9 pg (27.0-32.0); Mean Corpuscular Volume 99.1 fL (80-94); Monocyte# 0.65 X10^3/uL; Monocyte% 6.4 % (0-10); NRBC Flagged by Analyzer 0 % (0-5); Neutrophil # 8.17 X10^3/uL (2.7-7.7); Neutrophil % 80.6 % (47-70); Platelet Count 191 K/mm3 (150-450); RBC Distribution Width CV 13.2 % (11.6-14.6); RBC Distribution Width SD 47.9 fl (35.1-43.9); White Blood Count 10.1 K/mm3 (4.4-11.0)
[2019-12-26 06:55] LABS: ALB/GLOB Ratio 0.6 RATIO (0.9-2.4); AST(SGOT) 73 U/L (15-37); Alanine Aminotransfer ALT/SGPT 60 U/L (16-61); Albumin, Serum 2.6 g/dL (3.2-5.0); Alkaline Phosphatase 144 U/L (45-117); Anion Gap 11 (5-15); BUN 8 mg/dL (7-18); BUN/Creat Ratio 8.5 RATIO (10-20); Calcium,Total 8.5 mg/dL (8.5-10.1); Chloride 99 mmol/L (98-107); Creatinine, Serum 0.94 mg/dL (0.70-1.30); EST Glomerular Filtration Rate 82 mL/min (>60); Est Glom Filt Rate - Afr Amer 100 mL/min (>60); Estimated Creatinine Clearance 66.87 ml/min; Globulin 4.7 g/dL (2.2-4.2); Glucose 134 mg/dL (74-106); Potassium 3.8 mmol/L (3.5-5.1); Protein, Total 7.3 g/dL (6.4-8.2); Sodium Level 130 mmol/L (136-145)
--- NOTE | 2019-12-26 09:30 | PN.SURG_ITS ---
Patient Problems: Active and Suspected Problems (Last Reviewed 12/25/19 @ 01:[address] Sigifredo Barry, DO) Cholecystitis (Suspected) Preop cardiovascular exam (Acute) Subjective: Patient does not have any nausea or vomiting he is tolerating clear liquid diet with flatus. - Physical Exam Vitals/I&O's: Vital Signs Temp Pulse Resp BP Pulse Ox 97.8 F 70 16 160/85 H 99 12/26/19 07:57 12/26/19 08:07 12/26/19 07:57 12/26/19 07:57 12/26/19 07:57 Oxygen Delivery Method Room Air Weight: 183 lb 6.793 oz Body Mass Index (BMI) 26.3 Intake and Output for Last 24 Hours 12/24/19 12/25/19 12/26/19 23:59 23:59 23:59 Intake Total 3155.50 / 3155.50 531.42 / 531.42 Output Total 1350 / 1350 200 / 200 Balance 1805.50 / 1805.50 331.42 / 331.42 General: Alert, Oriented x3 Lungs: Normal air movement Abdomen: Soft, Non-Distended Microbiology Past 72 Hours 12/25/19 07:51 Mucosa - Nasopharyngeal Coronavirus COVID-19 PCR - Final Laboratory Results 12/25/19 11:36: POC Glucose 119 H 12/25/19 17:11: POC Glucose 125 H 12/25/19 21:35: Urine Color Yellow, Urine Clarity Sl. Cloudy, Urine pH 6.5, Ur Specific [place] 1.010, Urine Protein Negative, Urine Glucose (UA) Normal, Urine Ketones 15 H, Urine Occult Blood Negative, Urine Nitrite Negative, Urine Bilirubin Negative, Urine Urobilinogen 4 H, Ur Leukocyte Esterase Negative, Urine RBC 0 SEEN, Urine WBC 0 SEEN, Ur Squamous Epith Cells 0-5 SEEN, Urine Bacteria 0 SEEN, Urine Mucus 0 SEEN 12/25/19 23:19: POC Glucose 123 H 12/26/19 05:43: POC Glucose 128 H 12/26/19 06:20: WBC 10.1, RBC 4.40 L, Hgb 13.6, Hct 43.6, MCV 99.1 H D, MCH 30.9, MCHC 31.2 L D, RDW Std Deviation 47.9 H, RDW Coeff of Delisa 13.2, Plt Count 191, MPV 9.0, Immature Gran % (Auto) 0.700, Neut % (Auto) 80.6 H, Lymph % (Auto) 10.0 L, [place] % (Auto) 6.4, Eos % (Auto) 1.6, Baso % (Auto) 0.7, Absolute Neuts (auto) 8.2 H, Absolute Lymphs (auto) 1.01, Nucleated RBC % 0 12/26/19 06:20: Sodium 130 L, Potassium 3.8, Chloride 99, Carbon Dioxide 20.0 L, Anion Gap 11, BUN 8, Creatinine 0.94, Estim Creat Clear Calc 66.87, Est GFR (MDRD) Af Amer 100, Est GFR (MDRD) Non-Af 82, BUN/Creatinine Ratio 8.5 L, Glucose 134 H, Calcium 8.5, Total Bilirubin 1.60 H, AST 73 H, ALT 60, Alkaline Phosphatase 144 H, Total Protein 7.3, Albumin 2.6 L, Globulin 4.7 H, Al bumin/Globulin Ratio 0.6 L Current Medications Acetaminophen (Tylenol) 650 mg PO Q6H PRN PRN PRN Reason: Pain Score 1-10/10 Dextrose (D50w Syringe) 0 gm IV X1 PRN; Protocol PRN Reason: Hypoglycemia Glucagon () 1 mg IM .X1 PRN PRN Reason: Hypoglycemia Piperacillin Sod/Tazobactam (Sod 3.375 gm/ Sodium Chloride) 50 mls @ 12.5 mls/hr IV Q8 ANAHI Last Admin: 12/26/19 05:45 Dose: 12.5 mls/hr Documented by: Sodium Chloride () 250 mls @ 15 mls/hr IV .[id number] PRN PRN Reason: Saline Flush Last Infusion: 12/26/19 05:45 Dose: 0 mls/hr Documented by: Sodium Chloride () 250 mls @ 15 mls/hr IV .[id number] PRN PRN Reason: Additional IVPB Infusion Insulin Human Lispro (Humalog Kwikpen (Bkc)) 0 unit SC Q6 ANAHI; Protocol Last Admin: 12/26/19 05:48 Dose: Not Given Documented by: Morphine Sulfate () 2 mg IV Q3H PRN PRN PRN Reason: Pain Score 6-10/10 Last Admin: 12/25/19 23:19 Dose: 2 mg Documented by: Ondansetron HCl (Zofran) 4 mg IV Q8H PRN PRN PRN Reason: NAUSEA/VOMITING Last Admin: 12/25/19 05:43 Dose: 4 mg Documented by: Sodium Chloride () 10 - 40 ml IV UD PRN PRN Reason: SALINE FLUSH Last Admin: 12/25/19 19:18 Dose: 10 ml Documented by: Medical Necessity - Tobacco Use Smoking Status: Never smoker Assessment/Plan All Active Problems (Last Reviewed 12/25/19 @ 01:[address] Sigifredo Barry, DO) Preop cardiovascular exam (Acute) Pituitary adenoma (Resolved) Hx of left breast biopsy (Resolved) Left breast lump (Acute) Abnormal ultrasound of breast (Acute) Hx of colonoscopy (Resolved) History of back surgery (Resolved) Hx of elbow surgery (Resolved) Fatigue (Acute) 79-year-old male with acute cholecystitis status post laparoscopic appendectomy 1. Patient appears to be doing well. He had a lot of purulent material inside of his gallbladder yesterday and there was a lot of inflammation. He also had some oozing from his liver bed and I would hold off on starting any anticoagulation. I will advance to regular diet but due to the patients inflammation and purulence, I would recommend continuing antibiotics and plan for discharge tomorrow. Rusty Magana MD Pager: [facility] [address] [place] [address], [address] [place] [address] Office:
--- NOTE | 2019-12-26 09:33 | PN.CARD_ITS ---
Subjectve: The patient is awake and alert. He denies any ongoing chest discomfort or difficulty breathing. He has had no ongoing palpitations or rapid heart rate sensations. He notes his main concern is discomfort with respect to his abdominal incisions. Objective: Vital Signs Temp Pulse Resp BP Pulse Ox 97.8 F 70 16 160/85 H 99 12/26/19 07:57 12/26/19 08:07 12/26/19 07:57 12/26/19 07:57 12/26/19 07:57 Oxygen Delivery Method Room Air Weight: 183 lb 6.793 oz Body Mass Index (BMI) 26.3 Intake and Output for Last 24 Hours 12/24/19 12/25/19 12/26/19 23:59 23:59 23:59 Intake Total 3155.50 / 3155.50 531.42 / 531.42 Output Total 1350 / 1350 200 / 200 Balance 1805.50 / 1805.50 331.42 / 331.42 General: Awake, Alert, Oriented x 3, Cooperative, No Acute Distress HEENT: Atraumatic, Normocephalic, PERRL, EOMI, Sclera Non Icteric Oral: Moist Mucosa Neck: Supple, Good ROM, No JVD Lungs: Clear to auscultation Cardiovascular: Regular Rhythm, Normal S1, Normal S2 Abdomen: Bowel Sounds Present, Soft Extremities: No edema Neurological: No Focal Motor or Sensory Deficit Psych/Mental Status: Appropriate 12/25/19 21:35: Urine Color Yellow, Urine Clarity Sl. Cloudy, Urine pH 6.5, Ur Specific [place] 1.010, Urine Protein Negative, Urine Glucose (UA) Normal, Urine Ketones 15 H, Urine Occult Blood Negative, Urine Nitrite Negative, Urine Bilirubin Negative, Urine Urobilinogen 4 H, Ur Leukocyte Esterase Negative, Urine RBC 0 SEEN, Urine WBC 0 SEEN 12/26/19 06:20: WBC 10.1, RBC 4.40 L, Hgb 13.6, Hct 43.6, MCV 99.1 H D, MCH 30.9, MCHC 31.2 L D, Plt Count 191, MPV 9.0, Immature Gran % (Auto) 0.700, Neut % (Auto) 80.6 H, Lymph % (Auto) 10.0 L, [place] % (Auto) 6.4, Eos % (Auto) 1.6, Baso % (Auto) 0.7, Absolute Neuts (auto) 8.2 H, Nucleated RBC % 0 12/26/19 06:20: Sodium 130 L, Potassium 3.8, Chloride 99, Carbon Dioxide 20.0 L, Anion Gap 11, BUN 8, Creatinine 0.94, Est GFR (MDRD) Af Amer 100, Est GFR (MDRD) Non-Af 82, BUN/Creatinine Ratio 8.5 L, Glucose 134 H, Calcium 8.5, Total Bilirubin 1.60 H Rhythm: Sinus rhythm Medical Necessity - Tobacco Use Smoking Status: Never smoker Assessment/Plan 1. CAD status post PCI The patient has a history of CAD status post PCI. The details of his cardiovascular history are unknown at this time as no additional records from [facility] have arrived thus far to be placed on the patient's chart. He has been on medical therapy. Based upon his home medication list this appears compatible with aspirin and an ARB. Has not been on additional antiplatelet therapy. It does not appear he has been on a beta-nevaeh or a lipid-lowering agent. He did undergo a preoperative transthoracic echocardiogram. His overall LV wall motion systolic function appear to be preserved with an estimated LVEF of 60%. He is now status post surgery. He has had no acute postoperative cardiovascular adverse events. It would be recommended he continue cardiovascular medical therapy with adjustment as deemed appropriate. He should continue to follow with his railway signal electrician as an outpatient. 2. Acute cholecystitis He is status post his surgical procedure. He has had no adverse cardiovascular events. He will continue under the care of internal medicine and general surgery. Comment: The patient's case has been discussed and reviewed with the patient. This note was generated using a voice recognition system and there may be incorrect words, spelling or punctuation that were not noted when reviewing the office note prior to saving.
--- NOTE | 2019-12-26 10:58 | PN_ITS ---
Patient Problems: Active and Suspected Problems (Last Reviewed 12/25/19 @ 01:[address] Sigifredo Barry, DO) Cholecystitis (Suspected) Preop cardiovascular exam (Acute) Reason for Visit: follow up for acute cholecystitis Objective: Patient seen and examined. He is postop day 1 for laparoscopic cholecystectomy due to acute cholecystitis. Complains of some pain at the incision sites. He denies any fever, any chills, any nausea vomiting or diarrhea. Review of systems otherwise negative. Labs and vitals reviewed. Sodium today is 130 and bicarb is 20. Total bilirubin is down to 1.6 today. WBC is 10.1. Vitals/I&O's: Vital Signs Temp Pulse Resp BP Pulse Ox 97.8 F 70 16 160/85 H 99 12/26/19 07:57 12/26/19 08:07 12/26/19 07:57 12/26/19 07:57 12/26/19 07:57 Oxygen Delivery Method Room Air Weight: 183 lb 6.793 oz Body Mass Index (BMI) 26.3 Intake and Output for Last 24 Hours 12/24/19 12/25/19 12/26/19 23:59 23:59 23:59 Intake Total 3155.50 / 3155.50 531.42 / 531.42 Output Total 1350 / 1350 200 / 200 Balance 1805.50 / 1805.50 331.42 / 331.42 General: Alert, Oriented x3, Cooperative, No apparent distress HEENT: Atraumatic, PERRLA, EOMI, Normocephalic, Oral: Dry Mucosa Neck: Supple, No JVD, Negative Carotid Bruits Lungs: Clear to auscultation, Normal air movement, No rhonchi, No wheeze, No rales Cardiovascular: Regular rate, Regular Rhythm, Normal S1, Normal S2, No murmurs Abdomen: Bowel Sounds Present, Soft, mild tenderness over incision areas, no guarding or rebound tenderness. Extremities: No clubbing, No cyanosis, No edema, Capillary Refill Less than 3 Seconds Skin: No rashes, No breakdown Musculoskeletal: No Tenderness to Palpation of Joints or Extremities Lymphatic: No Cervical, Supraclavicular, or Inguinal Adenopathy Neurological: Cranial nerves II-XII grossly intact, Neuro grossly intact, Motor Exam 5/5 strength throughout Psych/Mental Status: Normal Affect, Appropriate, Alert and oriented to time, place, person, mood and affect Microbiology Past 72 Hours 12/25/19 07:51 Mucosa - Nasopharyngeal Coronavirus COVID-19 PCR - Final Laboratory Results 12/25/19 11:36: POC Glucose 119 H 12/25/19 17:11: POC Glucose 125 H 12/25/19 21:35: Urine Color Yellow, Urine Clarity Sl. Cloudy, Urine pH 6.5, Ur Specific [place] 1.010, Urine Protein Negative, Urine Glucose (UA) Normal, Urine Ketones 15 H, Urine Occult Blood Negative, Urine Nitrite Negative, Urine Bilirubin Negative, Urine Urobilinogen 4 H, Ur Leukocyte Esterase Negative, Urine RBC 0 SEEN, Urine WBC 0 SEEN, Ur Squamous Epith Cells 0-5 SEEN, Urine Bacteria 0 SEEN, Urine Mucus 0 SEEN 12/25/19 23:19: POC Glucose 123 H 12/26/19 05:43: POC Glucose 128 H 12/26/19 06:20: WBC 10.1, RBC 4.40 L, Hgb 13.6, Hct 43.6, MCV 99.1 H D, MCH 30.9, MCHC 31.2 L D, RDW Std Deviation 47.9 H, RDW Coeff of Delisa 13.2, Plt Count 191, MPV 9.0, Immature Gran % (Auto) 0.700, Neut % (Auto) 80.6 H, Lymph % (Auto) 10.0 L, [place] % (Auto) 6.4, Eos % (Auto) 1.6, Baso % (Auto) 0.7, Absolute Neuts (auto) 8.2 H, Absolute Lymphs (auto) 1.01, Nucleated RBC % 0 12/26/19 06:20: Sodium 130 L, Potassium 3.8, Chloride 99, Carbon Dioxide 20.0 L, Anion Gap 11, BUN 8, Creatinine 0.94, Estim Creat Clear Calc 66.87, Est GFR ( MDRD) Af Amer 100, Est GFR (MDRD) Non-Af 82, BUN/Creatinine Ratio 8.5 L, Glucose 134 H, Calcium 8.5, Total Bilirubin 1.60 H, AST 73 H, ALT 60, Alkaline Phosphatase 144 H, Total Protein 7.3, Albumin 2.6 L, Globulin 4.7 H, Albumin/Globulin Ratio 0.6 L Diagnostic Data Chest X-Ray 12/24/19 23:35 IMPRESSION: Normal x-ray examination of the chest. Electronically Signed: García Hutchinson, at 0:12 EDT Tel , Service support , Cholangiogram 12/25/19 14:37 IMPRESSION: Unremarkable intraoperative cholangiogram. Electronically Signed: Luis Zhen, at 15:17 EDT , Service support , Current Medications Acetaminophen (Tylenol) 650 mg PO Q6H PRN PRN PRN Reason: Pain Score 1-10/10 Dextrose (D50w Syringe) 0 gm IV X1 PRN; Protocol PRN Reason: Hypoglycemia Glucagon () 1 mg IM .X1 PRN PRN Reason: Hypoglycemia Piperacillin Sod/Tazobactam (Sod 3.375 gm/ Sodium Chloride) 50 mls @ 12.5 mls/hr IV Q8 ANAHI Last Admin: 12/26/19 05:45 Dose: 12.5 mls/hr Documented by: Sodium Chloride () 250 mls @ 15 mls/hr IV .[id number] PRN PRN Reason: Saline Flush Last Infusion: 12/26/19 05:45 Dose: 0 mls/hr Documented by: Sodium Chloride () 250 mls @ 15 mls/hr IV .[id number] PRN PRN Reason: Additional IVPB Infusion Insulin Human Lispro (Humalog Kwikpen (Bkc)) 0 unit SC Q6 ANAHI; Protocol Last Admin: 12/26/19 05:48 Dose: Not Given Documented by: Morphine Sulfate () 2 mg IV Q3H PRN PRN PRN Reason: Pain Score 6-10/10 Last Admin: 12/25/19 23:19 Dose: 2 mg Documented by: Ondansetron HCl (Zofran) 4 mg IV Q8H PRN PRN PRN Reason: NAUSEA/VOMITING Last Admin: 12/25/19 05:43 Dose: 4 mg Documented by: Sodium Chloride () 10 - 40 ml IV UD PRN PRN Reason: SALINE FLUSH Last Admin: 12/25/19 19:18 Dose: 10 ml Documented by: STROKE Vital Signs/Narrative: Vital Signs Temp Pulse Resp BP Pulse Ox 12/26/19 08:07 70 12/26/19 07:57 97.8 F 66 16 160/85 H 99 Medical Necessity - Tobacco Use Smoking Status: Never smoker Assessment/Plan All Active Problems (Last Reviewed 12/25/19 @ 01:[address] Sigifredo Barry, DO) Preop cardiovascular exam (Acute) Pituitary adenoma (Resolved) Hx of left breast biopsy (Resolved) Left breast lump (Acute) Abnormal ultrasound of breast (Acute) Hx of colonoscopy (Resolved) History of back surgery (Resolved) Hx of elbow surgery (Resolved) Fatigue (Acute) 1. Acute cholecystitis * s/p laparoscopic cholecystectomy. today is POD 1. * total luis is down to 1.6 * gallbladder was very inflammed and purulent, per general surgery notes * on IV zosyn; no surgery, to continue for today on account of inflammed and purulent the gallbladder was. * 2. 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 * cardiology records requested from [facility]. He says his last stent was in 2007 * 2D echo: EF of 60% with normal left ventricular systolic function and RVSP of 25 mmHg. No evidence of diastolic dysfunction. * on aspirin and ARB. not on any anitplatelet therapy, beta nevaeh or statins. * per cardiology documentation, patient should proceed with general surgical procedure wtih close monitoring of his cardiac rate, rhythm and blood pressure during and following his surgical procedure and to avoid excess IV volume overload during and following surgical procedure. 3. Hyponatremia: * Sodium remains `130. stable. will monitor * continue gentle hydration with IVF. * 4. Type 2 diabetes mellitus: On insulin sliding scale. Accu-Cheks AC at bedtime. will resume home meds. Home Full DVT prophylaxis: SCDs. We will start Lovenox after surgery CODE STATUS: Full code * Inpatient E&M: 63224 Subs Hosp L2
[2019-12-26] MEDS: Acetaminophen 325 MG Tablet 650 MG PO ×2 (12:18→23:00)
[2019-12-26 12:25] LABS: Bedside Glucose 130 mg/dL (70-110)
[2019-12-26 17:20] LABS: Bedside Glucose 118 mg/dL (70-110)
[2019-12-26 23:46] LABS: Bedside Glucose 115 mg/dL (70-110)
[2019-12-27 01:58] VITALS: BP 149/82; PULSE 64; RESP 16; TEMP 36.5; O2SAT 100
[2019-12-27] MEDS: Ondansetron 4 MG/2 ML Vial IV (02:31)
[2019-12-27 03:59] VITALS: PULSE 63
[2019-12-27 05:30] LABS: Absolute Lymphocyte Count 0.86 X10^3/uL (0.83-4.51); Basophil# 0.05 X10^3/uL; Basophil% 0.6 % (0-1); Eosinophil# 0.28 X10^3/uL; Eosinophils% 3.5 % (0-5); Hematocrit 36.3 % (40-54); Hemoglobin 12.1 g/dL (13.0-16.5); Lymphocyte # 0.86 X10^3/ul (4.0); Lymphocyte % 10.9 % (19-41); Mean Corp Hgb Conc 33.3 g/dL (32-36); Mean Corpuscular Hgb 30.8 pg (27.0-32.0); Mean Corpuscular Volume 92.4 fL (80-94); Mean Platelet Vol. 8.9 fl (6.2-12.0); Monocyte% 7.6 % (0-10); NRBC Flagged by Analyzer 0 % (0-5); Neutrophil # 6.04 X10^3/uL (2.7-7.7); Neutrophil % 76.5 % (47-70); Platelet Count 204 K/mm3 (150-450); RBC Distribution Width CV 12.9 % (11.6-14.6); RBC Distribution Width SD 43.6 fl (35.1-43.9); Red Blood Count 3.93 M/mm3 (4.6-6.2); White Blood Count 7.9 K/mm3 (4.4-11.0)
[2019-12-27 05:45] LABS: Anion Gap 9 (5-15); BUN 7 mg/dL (7-18); BUN/Creat Ratio 8.9 RATIO (10-20); Calcium,Total 8.2 mg/dL (8.5-10.1); Chloride 98 mmol/L (98-107); Creatinine, Serum 0.78 mg/dL (0.70-1.30); EST Glomerular Filtration Rate 102 mL/min (>60); Est Glom Filt Rate - Afr Amer 123 mL/min (>60); Estimated Creatinine Clearance 62.86 ml/min; Glucose 118 mg/dL (74-106); Potassium 3.7 mmol/L (3.5-5.1); Sodium Level 131 mmol/L (136-145)
[2019-12-27 06:30] LABS: Bedside Glucose 120 mg/dL (70-110)
[2019-12-27 08:00] VITALS: BP 162/90; PULSE 66; RESP 16; TEMP 36.9; O2SAT 97
--- NOTE | 2019-12-27 08:32 | PN.CARD_ITS ---
Subjectve: The patient is awake and alert. He denies ongoing chest discomfort or difficulty breathing. He states his main concern is still has abdominal discom fort especially when he takes a deep breath, coughs, etc. Objective: Vital Signs Temp Pulse Resp BP Pulse Ox 98.4 F 66 16 162/90 H 97 12/27/19 08:00 12/27/19 08:00 12/27/19 08:00 12/27/19 08:00 12/27/19 08:00 Oxygen Delivery Method Room Air Weight: 183 lb 6.793 oz Body Mass Index (BMI) 26.3 Intake and Output for Last 24 Hours 12/25/19 12/26/19 12/27/19 23:59 23:59 23:59 Intake Total 3155.50 / 3155.50 1131.42 / 1381.42 585.5 / 585.5 Output Total 1350 / 1350 710 / 1135 725 / 725 Balance 1805.50 / 1805.50 421.42 / 246.42 -139.5 / -139.5 General: Awake, Alert, Oriented x 3, Cooperative, No Acute Distress HEENT: Atraumatic, Normocephalic, PERRL, EOMI, Sclera Non Icteric Oral: Moist Mucosa Neck: Supple, Good ROM, No JVD Lungs: Clear to auscultation Cardiovascular: Regular Rhythm, Normal S1, Normal S2 Abdomen: Bowel Sounds Present, Soft, Non Tender Extremities: No edema Psych/Mental Status: Appropriate 12/27/19 05:22: WBC 7.9, RBC 3.93 L, Hgb 12.1 L, Hct 36.3 L, MCV 92.4 D, MCH 30.8, MCHC 33.3 D, Plt Count 204, MPV 8.9, Immature Gran % (Auto) 0.900, Neut % (Auto) 76.5 H, Lymph % (Auto) 10.9 L, [place] % (Auto) 7.6, Eos % (Auto) 3.5, Baso % (Auto) 0.6, Absolute Neuts (auto) 6.0, Nucleated RBC % 0 12/27/19 05:22: Sodium 131 L, Potassium 3.7, Chloride 98, Carbon Dioxide 24.0, Anion Gap 9, BUN 7, Creatinine 0.78, Est GFR (MDRD) Af Amer 123, Est GFR (MDRD) Non-Af 102, BUN/Creatinine Ratio 8.9 L, Glucose 118 H, Calcium 8.2 L Rhythm: Sinus rhythm Medical Necessity - Tobacco Use Smoking Status: Never smoker Assessment/Plan 1. CAD status post PCI The patient has a history of CAD status post PCI. The details of his cardiovascular history are unknown at this time as no additional records from [facility] have arrived thus far to be placed on the patient's chart. He has been on medical therapy. Based upon his home medication list this appears compatible with aspirin and an ARB. Has not been on additional antiplatelet therapy. It does not appear he has been on a beta-nevaeh or a lipid-lowering agent. He did undergo a preoperative transthoracic echocardiogram. His overall LV wall motion systolic function appear to be preserved with an estimated LVEF of 60%. He is now status post surgery. He has had no acute postoperative cardiovascular adverse events. At the present time, per request from surgery based upon his intraoperative findings, medical therapy such as antiplatelet therapy is temporarily on hold. This can be resumed when deemed appropriate from a surgical standpoint. He should continue to follow with his insurance administrative assistant as an outpatient. 2. Acute cholecystitis He is status post his surgical procedure. He has had no adverse cardiovascular events. He will continue under the care of internal medicine and general surgery. Comment: The patient's case has been discussed and reviewed with the patient. This note was generated using a voice recognition system and there may be incorrect words, spelling or punctuation that were not noted when reviewing the office note prior to saving.
--- NOTE | 2019-12-27 09:07 | PCM.PN.SRG ---
Patient Problems: Active and Suspected Problems (Last Reviewed 12/25/19 @ 01:[address] Sigifredo Barry, DO) Cholecystitis (Suspected) Preop cardiovascular exam (Acute) Subjective: Patient seems to be doing well this morning. He is tolerating regular diet. He is only complaining of pain at his periumbilical incision site. The rest of the abdomen he says is non-tender. - Physical Exam Vitals/I&O's: Vital Signs Temp Pulse Resp BP Pulse Ox 98.4 F 66 16 162/90 H 97 12/27/19 08:00 12/27/19 08:00 12/27/19 08:00 12/27/19 08:00 12/27/19 08:00 Oxygen Delivery Method Room Air Weight: 183 lb 6.793 oz Body Mass Index (BMI) 26.3 Intake and Output for Last 24 Hours 12/25/19 12/26/19 12/27/19 23:59 23:59 23:59 Intake Total 3155.50 / 3155.50 1131.42 / 1381.42 585.5 / 585.5 Output Total 1350 / 1350 710 / 1135 725 / 725 Balance 1805.50 / 1805.50 421.42 / 246.42 -139.5 / -139.5 General: Alert, Cooperative Lungs: Normal air movement Abdomen: Soft, Non Tender, Non-Distended Microbiology Past 72 Hours 12/25/19 07:51 Mucosa - Nasopharyngeal Coronavirus COVID-19 PCR - Final Laboratory Results 12/26/19 12:15: POC Glucose 130 H 12/26/19 17:09: POC Glucose 118 H 12/26/19 23:39: POC Glucose 115 H 12/27/19 05:22: WBC 7.9, RBC 3.93 L, Hgb 12.1 L, Hct 36.3 L, MCV 92.4 D, MCH 30.8, MCHC 33.3 D, RDW Std Deviation 43.6, RDW Coeff of Delisa 12.9, Plt Count 204, MPV 8.9, Immature Gran % (Auto) 0.900, Neut % (Auto) 76.5 H, Lymph % (Auto) 10.9 L, [place] % (Auto) 7.6, Eos % (Auto) 3.5, Baso % (Auto) 0.6, Absolute Neuts (auto) 6.0, Absolute Lymphs (auto) 0.86, Nucleated RBC % 0 12/27/19 05:22: Sodium 131 L, Potassium 3.7, Chloride 98, Carbon Dioxide 24.0, Anion Gap 9, BUN 7, Creatinine 0.78, Estim Creat Clear Calc 62.86, Est GFR (MDRD) Af Amer 123, Est GFR (MDRD) Non-Af 102, BUN/Creatinine Ratio 8.9 L, Glucose 118 H, Calcium 8.2 L 12/27/19 06:25: POC Glucose 120 H Current Medications Acetaminophen (Tylenol) 650 mg PO Q6H PRN PRN PRN Reason: Pain Score 1-1010 Last Admin: 12/26/19 23:00 Dose: 650 mg Documented by: Dextrose (D50w Syringe) 0 gm IV X1 PRN; Protocol PRN Reason: Hypoglycemia Glucagon () 1 mg IM .X1 PRN PRN Reason: Hypoglycemia Sodium Chloride () 250 mls @ 15 mls/hr IV .[id number] PRN PRN Reason: Saline Flush Last Infusion: 12/27/19 07:40 Dose: 15 mls/hr Documented by: Sodium Chloride () 250 mls @ 15 mls/hr IV .[id number] PRN PRN Reason: Additional IVPB Infusion Insulin Human Lispro (Humalog Kwikpen (Bkc)) 0 unit SC Q6 ANAHI; Protocol Last Admin: 12/27/19 06:27 Dose: Not Given Documented by: Morphine Sulfate () 2 mg IV Q3H PRN PRN PRN Reason: Pain Score 6-10/10 Last Admin: 12/25/19 23:19 Dose: 2 mg Documented by: Ondansetron HCl (Zofran) 4 mg IV Q8H PRN PRN PRN Reason: NAUSEA/VOMITING Last Admin: 12/27/19 02:31 Dose: 4 mg Documented by: Sodium Chloride () 10 - 40 ml IV UD PRN PRN Reason: SALINE FLUSH Last Admin: 12/25/19 19:18 Dose: 10 ml Documented by: Medical Necessity - Tobacco Use Smoking Status: Never smoker Assessment/Plan All Active Problems (Last Reviewed 12/25/19 @ 01:[address] Sigifredo Barry, DO) Preop cardiovascular exam (Acute) Pituitary adenoma (Resolved) Hx of left breast biopsy (Resolved) Left breast lump (Acute) Abnormal ultrasound of breast (Acute) Hx of colonoscopy (Resolved) History of back surgery (Resolved) Hx of elbow surgery (Resolved) Fatigue (Acute) 79-year-old male acute cholecystitis 1. The patient reports that he is doing well this morning. He only complains of pain at the incision site. The rest of his abdomen is soft and nontender. There is no erythema to suggest wound infection and his white count is decreasing nicely. I believe he is okay for discharge today. He should follow-up with me in 2 weeks. No lifting over 20 pounds. Rusty Magana MD Pager: [facility] [address] [place] [address], [address] [place] [address] Office:
--- NOTE | 2019-12-27 09:09 | DCINST_ITS ---
Discharge Diet: Light diet - advance as tolerated Discharge Activity: Return to Normal Activity, May Not Drive - for 2-3 days or while taking narcotic pain medicataions., - - Do not drive, work heavy equipment or sign legal documents for 24 hours. May shower in (days): 1 - with the bandage in place. Additional Activity Instructions:: Pain medication may cause nausea. You should typically eat light foods as you take your pain medications. Pain medication may also cause constipation. If this is a problem for you, please discuss with your doctor. Call your doctor if your incision/area has: Continuous Slow Oozing, Sudden Increased Bleeding, Increased Pain/ Swelling, Increased Redness, Foul Smelling Discharge, Fever of 101 or Higher Call your doctor if you observe: Fever of 101 or Higher Suture Line Care: Avoid Pulling/Pushing, Avoid Pinching/Bending Additional Dressing/Incision Instructions:: Leave operative bandaids on for 2 days. When you remove dressing, leave Steri-Strips on until your follow-up appointment, or until the Steri-Strips fall off on their own. Allergies/Adverse Reactions: Allergies No Known Allergies Allergy (Verified 12/24/19 22:35) Medications to take at Discharge tamsulosin 0.4 mg capsule 0.4 mg PO QHS cap 04/24/19 Escitalopram Oxalate 10 mg PO DAILY 10/24/19 Finasteride 5 mg PO DAILY 10/24/19 Levothyroxine [Synthroid] 100 mcg PO DAILY 10/24/19 Losartan Potassium [Cozaar] 25 mg PO DAILY 10/24/19 Metformin HCl [Metformin HCl ER] 500 mg PO DAILY 10/24/19 Azelastine HCl [Astelin] 2 spray NARES TID 11/01/19 Nitroglycerin 2.5 mg PO PRN PRN 11/01/19 Acetaminophen [Tylenol Tablet] 650 mg PO Q6H PRN PRN tab 11/03/19 Atorvastatin Calcium [Lipitor] 20 mg PO DAILY 12/25/19 Hydrocortisone See Rx Instructions PO BID 12/25/19 Acetaminophen [Tylenol Tablet] 650 mg PO Q6H PRN PRN tab 12/27/19 Primary Care Physician: Gianluca Trevino MD [Primary Care Provider] - Test Results: Test results from this visit will be discussed in further detail at your follow- up appointment, if applicable. Please Follow Up With: Rusty Magana MD When: Please call to schedule 2 week follow up appointment. [phone]
[2019-12-27 09:56] VITALS: PULSE 63
--- NOTE | 2019-12-27 10:33 | DCINST_ITS ---
- Discharge Diagnoses Current Active Problems: Current Active and Chronic Problems (Last Reviewed 12/25/19 @ 01:[address] Sigifredo Barry, DO) Acute cholecystitis (Acute) CAD in [place] artery (Chronic) Preop cardiovascular exam (Acute) You will use the following diet at home:: No restrictions Your food should be the consistency of: Regular Your liquids should be the consistency of: Regular/Thin Discharge Activity: Return to Normal Activity, May Not Drive - for 2-3 days or while taking narcotic pain medicataions., - - Do not drive, work heavy equipment or sign legal documents for 24 hours. May shower in (days): 1 - with the bandage in place. Additional Activity Instructions:: Pain medication may cause nausea. You should typically eat light foods as you take your pain medications. Pain medication may also cause constipation. If this is a problem for you, please discuss with your doctor. Call your doctor if your incision/area has: Continuous Slow Oozing, Sudden Increased Bleeding, Increased Pain/ Swelling, Increased Redness, Foul Smelling Discharge, Fever of 101 or Higher Call your doctor if you observe: Fever of 101 or Higher Suture Line Care: Avoid Pulling/Pushing, Avoid Pinching/Bending Additional Dressing/Incision Instructions:: Leave operative bandaids on for 2 days. When you remove dressing, leave Steri-Strips on until your follow-up appointment, or until the Steri-Strips fall off on their own. Allergies/Adverse Reactions: Allergies No Known Allergies Allergy (Verified 12/24/19 22:35) Medications to take at Discharge tamsulosin 0.4 mg capsule 0.4 mg PO QHS cap 04/24/19 Escitalopram Oxalate 10 mg PO DAILY 10/24/19 Finasteride 5 mg PO DAILY 10/24/19 Levothyroxine [Synthroid] 100 mcg PO DAILY 10/24/19 Losartan Potassium [Cozaar] 25 mg PO DAILY 10/24/19 Metformin HCl [Metformin HCl ER] 500 mg PO DAILY 10/24/19 Azelastine HCl [Astelin] 2 spray NARES TID 11/01/19 Nitroglycerin 2.5 mg PO PRN PRN 11/01/19 Acetaminophen [Tylenol Tablet] 650 mg PO Q6H PRN PRN tab 11/03/19 Atorvastatin Calcium [Lipitor] 20 mg PO DAILY 12/25/19 Hydrocortisone See Rx Instructions PO BID 12/25/19 Acetaminophen [Tylenol Tablet] 650 mg PO Q6H PRN PRN tab 12/27/19 Primary Care Physician: Gianluca Trevino MD [Primary Care Provider] - Please follow up with your Primary Care Physician in: as scheduled Test Results: Test results from this visit will be discussed in further detail at your follow- up appointment, if applicable. Please Follow Up With: Rusty Magana MD When: Please call to schedule 2 week follow up appointment. [phone]
--- NOTE | 2019-12-27 10:50 | PHA.DC.MR ---
Pharmacy Service has performed discharge medication reconciliation for this patient. The patient's discharge medication list was reviewed for discrepancies and discrepancies were resolved. Home Medications tamsulosin 0.4 mg capsule 0.4 mg PO QHS cap 04/24/19 Escitalopram Oxalate 10 mg PO DAILY 10/24/19 Finasteride 5 mg PO DAILY 10/24/19 Levothyroxine [Synthroid] 100 mcg PO DAILY 10/24/19 Losartan Potassium [Cozaar] 25 mg PO DAILY 10/24/19 Metformin HCl [Metformin HCl ER] 500 mg PO DAILY 10/24/19 Azelastine HCl [Astelin] 2 spray NARES TID 11/01/19 Nitroglycerin 2.5 mg PO PRN PRN 11/01/19 Acetaminophen [Tylenol Tablet] 650 mg PO Q6H PRN PRN tab 11/03/19 Atorvastatin Calcium [Lipitor] 20 mg PO DAILY 12/25/19 Hydrocortisone See Rx Instructions PO BID 12/25/19 Acetaminophen [Tylenol Tablet] 650 mg PO Q6H PRN PRN tab 12/27/19
[2019-12-27 11:50] LABS: Bedside Glucose 111 mg/dL (70-110)
[2019-12-27 14:33] VITALS: BP 150/76; PULSE 78; RESP 16; TEMP 36.6; O2SAT 98
--- NOTE | 2019-12-27 15:12 | DS.PCM_ITS ---
Discharge Date and Diagnosis - Problem List Patient Problems: Active and Suspected Problems (Last Reviewed 12/25/19 @ 01:[address] Sigifredo Barry DO) Acute cholecystitis (Acute) Date of Admission: 12/25/19 Date of Discharge: 12/27/19 - Primary Discharge Diagnosis Active and Suspected Problems (Last Reviewed 12/25/19 @ 01:[address] Sigifredo Barry DO) #1 acute cholecystitis (Acute) #2 coronary artery disease #3 hyponatremia #4 type 2 diabetes - Secondary Discharge Diagnosis Chronic Problems (Last Reviewed 12/25/19 @ 01:[address] 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 Work-up in the emergency room included labs which showed an elevated bilirubin, white blood cell count was elevated at 13. Sodium was 129. Gallbladder ultrasound had been done on 12/22/2019, it was reviewed and it showed gallbladder sludge with no evidence of acute cholecystitis. Patient had been seen in the emergency room on that date. Patient was admitted to [place] [address], he was seen in consultation by general surgery who felt that the patient had acute cholecystitis, patient underwent a laparoscopic cholecystectomy with a cholangiogram. Patient had no complications following surgery. Patient was also seen by cardiology during his hospital stay. On 12/27/2019, patient was seen and examined: On examination he appeared in good health and spirits. Vital signs as documented. Skin warm and dry and without overt rashes. Neck without JVD, neck was supple, trachea midline, thyroid was normal. Lungs clear bilaterally, normal air movement was noted. Heart exam notable for regular rhythm, normal sounds and absence of murmurs, rubs or gallops. Abdomen unremarkable and without evidence of organomegaly, masses, or abdominal aortic enlargement. Bowel sounds are present, abdomen is not distended. Extremities nonedematous, no cyanosis was noted, no clubbing was noted. Neuro: Cranial nerves II through XII are grossly intact, no focal motor deficits were noted, sensation to light touch and pinprick intact, motor exam 5/5 throughout. Psych: Patient is alert and oriented x3, he does not appear anxious or depressed, he does not appear agitated. Patient was discharged home in stable condition on 12/27/2019. Patient Problems: Active and Suspected Problems (Last Reviewed 12/25/19 @ 01:[address] Sigifredo Barry, DO) Acute cholecystitis (Acute) - Physical Exam Vitals/I&O's: Vital Signs Temp Pulse Resp BP Pulse Ox 97.9 F 78 16 150/76 H 98 12/27/19 14:33 12/27/19 14:33 12/27/19 14:33 12/27/19 14:33 12/27/19 14:33 Oxygen Delivery Method Room Air Weight: 83.2 kg Body Mass Index (BMI) 26.3 Intake and Output for Last 24 Hours 12/25/19 12/26/19 12/27/19 23:59 23:59 23:59 Intake Total 3155.50 / 3155.50 1131.42 / 1381.42 635.5 / 635.5 Output Total 1350 / 1350 710 / 1135 925 / 925 Balance 1805.50 / 1805.50 421.42 / 246.42 -289.5 / -289.5 Microbiology Past 72 Hours 12/25/19 07:51 Mucosa - Nasopharyngeal Coronavirus COVID-19 PCR - Final Laboratory Results 12/26/19 17:09: POC Glucose 118 H 12/26/19 23:39: POC Glucose 115 H 12/27/19 05:22: WBC 7.9, RBC 3.93 L, Hgb 12.1 L, Hct 36.3 L, MCV 92.4 D, MCH 30.8, MCHC 33.3 D, RDW Std Deviation 43.6, RDW Coeff of [place]isa 12.9, Plt Count 204, MPV 8.9, Immature Gran % (Auto) 0.900, Neut % (Auto) 76.5 H, Lymph % (Auto) 10.9 L, [place] % (Auto) 7.6, Eos % (Auto) 3.5, Baso % (Auto) 0.6, Absolute Neuts (auto) 6.0, Absolute Lymphs (auto) 0.86, Nucleated RBC % 0 12/27/19 05:22: Sodium 131 L, Potassium 3.7, Chloride 98, Carbon Dioxide 24.0, Anion Gap 9, BUN 7, Creatinine 0.78, Estim Creat Clear Calc 62.86, Est GFR (MDRD) Af Amer 123, Est GFR (MDRD) Non-Af 102, BUN/Creatinine Ratio 8.9 L, Glucose 118 H, Calcium 8.2 L 12/27/19 06:25: POC Glucose 120 H 12/27/19 11:46: POC Glucose 111 H Discharge Diet: Light diet - advance as tolerated Discharge Activity: Return to Normal Activity, May Not Drive - for 2-3 days or while taking narcotic pain medicataions., - - Do not drive, work heavy equipment or sign legal documents for 24 hours. May shower in (days): 1 - with the bandage in place. Additional Activity Instructions:: Pain medication may cause nausea. You should typically eat light foods as you take your pain medications. Pain medication may also cause constipation. If this is a problem for you, please discuss with your doctor. Call your doctor if your incision/area has: Continuous Slow Oozing, Sudden Increased Bleeding, Increased Pain/ Swelling, Increased Redness, Foul Smelling Discharge, Fever of 101 or Higher Call your doctor if you observe: Fever of 101 or Higher Suture Line Care: Avoid Pulling/Pushing, Avoid Pinching/Bending Additional Dressing/Incision Instructions:: Leave operative bandaids on for 2 days. When you remove dressing, leave Steri-Strips on until your follow-up appointment, or until the Steri-Strips fall off on their own. Home Medications: Medications to take at Discharge tamsulosin 0.4 mg capsule 0.4 mg PO QHS cap 04/24/19 Escitalopram Oxalate 10 mg PO DAILY 10/24/19 Finasteride 5 mg PO DAILY 10/24/19 Levothyroxine [Synthroid] 100 mcg PO DAILY 10/24/19 Losartan Potassium [Cozaar] 25 mg PO DAILY 10/24/19 Metformin HCl [Metformin HCl ER] 500 mg PO DAILY 10/24/19 Azelastine HCl [Astelin] 2 spray NARES TID 11/01/19 Nitroglycerin 2.5 mg PO PRN PRN 11/01/19 Acetaminophen [Tylenol Tablet] 650 mg PO Q6H PRN PRN tab 11/03/19 Atorvastatin Calcium [Lipitor] 20 mg PO DAILY 12/25/19 Hydrocortisone See Rx Instructions PO BID 12/25/19 Acetaminophen [Tylenol Tablet] 650 mg PO Q6H PRN PRN tab 12/27/19 Primary Care Physician: Gianluca Trevino MD [Primary Care Provider] - Please follow up with your Primary Care Physician in: as scheduled Please Follow Up With: Rusty Magana MD When: Please call to schedule 2 week follow up appointment. [phone] Disposition: Home Minutes spent on discharge:: 31 Patient Condition:: Stable Medical Necessity - Tobacco Use Smoking Status: Never smoker Meaningful Use Info Meaningful Use Diagnoses (Choose all that apply): None applicable Inpatient E&M: 52422 Disch Hosp
--- NOTE | 2019-12-28 13:49 | CASEMGMT ---
DAVID SULLIVAN Discharge F/U Phone Call LACE: 14 Strata: 4 Discharge date: 12/27/2019 Call date: 12/28/2019 Call time: [phone] Attempted to reach pt without success at this time and message for answering machine did not voice names of pt/ at this time so message not left at this time. Pt has no other contact number for himself or on chart at this time. SStaten DAVID CM Admission dx: Abdominal pain
== END 2019-12-27 14:56 | disposition home or self-care (01) | DRG 418 ==
LOC: ED 12-25 01:14 → MS3 12-25 03:09
PROVIDERS: Anesthesiology; Student in an Organized Health Care Education/Training Program; Surgery; Emergency Provider Emergency Medicine; PCP Family Medicine; Visit Provider Internal Medicine
PROC: (CPT 47610; principal; 2019-12-25 13:00)
DX: K81.2 Acute cholecystitis with chronic cholecystitis (principal); E87.1 Hypo-osmolality and hyponatremia; E27.49 Other adrenocortical insufficiency; E23.0 Hypopituitarism; E44.1 Mild protein-calorie malnutrition; K21.9 Gastro-esophageal reflux disease without esophagitis; I25.10 Atherosclerotic heart disease of native coronary artery without angina pectoris; I10 Essential (primary) hypertension; E11.9 Type 2 diabetes mellitus without complications; E03.8 Other specified hypothyroidism; E78.00 Pure hypercholesterolemia, unspecified; R53.83 Other fatigue; M19.90 Unspecified osteoarthritis, unspecified site; I25.2 Old myocardial infarction; Z98.1 Arthrodesis status; Z79.890 Hormone replacement therapy; Z79.4 Long term (current) use of insulin; Z79.01 Long term (current) use of anticoagulants; Z79.899 Other long term (current) drug therapy; Z95.5 Presence of coronary angioplasty implant and graft; Z68.26 Body mass index [BMI] 26.0-26.9, adult
CPT/HCPCS: 36415; 71045; 74177; 74300; 76000; 76705; 80048; 80053; 81001; 82962; 83036; 83605; 83690; 84484; 85025; 85610; 85730; 87040; 87086; 87088; 87633; 87635; 88304; 93005; 93306; 96361; 96374; 96375; 97802; 99283; 99285; G2023; J7030; J7050; Q9957; Q9967; A4216; J0330; J2405; U0002

== ENCOUNTER → 2020-01-03 13:28 | Outpatient (CLI) | payer MEDICARE, SELFPAY ==
[2019-12-25 12:48] VITALS: BMI 26.3
[2020-01-03 14:05] LABS: Absolute Lymphocyte Count 0.69 X10^3/uL (0.83-4.51); Absolute Neutrophil Count 14.6 X10^3/uL (2.0-7.7); Basophil# 0.06 X10^3/uL; Basophil% 0.4 % (0-1); Eosinophil# 0.08 X10^3/uL; Eosinophils% 0.5 % (0-5); Hematocrit 36.6 % (40-54); Lymphocyte # 0.69 X10^3/ul (4.0); Lymphocyte % 4.2 % (19-41); Mean Corp Hgb Conc 32.8 g/dL (32-36); Mean Corpuscular Hgb 30.7 pg (27.0-32.0); Mean Corpuscular Volume 93.6 fL (80-94); Mean Platelet Vol. 8.5 fl (6.2-12.0); Monocyte# 0.69 X10^3/uL; Monocyte% 4.2 % (0-10); NRBC Flagged by Analyzer 0 % (0-5); Neutrophil # 14.61 X10^3/uL (2.7-7.7); Neutrophil % 89.4 % (47-70); Platelet Count 322 K/mm3 (150-450); RBC Distribution Width SD 44.3 fl (35.1-43.9); Red Blood Count 3.91 M/mm3 (4.6-6.2); White Blood Count 16.4 K/mm3 (4.4-11.0)
[2020-01-03 14:28] LABS: ALB/GLOB Ratio 0.6 RATIO (0.9-2.4); AST(SGOT) 25 U/L (15-37); Alanine Aminotransfer ALT/SGPT 36 U/L (16-61); Albumin, Serum 2.6 g/dL (3.2-5.0); Alkaline Phosphatase 140 U/L (45-117); Anion Gap 6 (5-15); BUN 12 mg/dL (7-18); BUN/Creat Ratio 10.3 RATIO (10-20); Calcium,Total 8.9 mg/dL (8.5-10.1); Chloride 95 mmol/L (98-107); Creatinine, Serum 1.16 mg/dL (0.70-1.30); EST Glomerular Filtration Rate 65 mL/min (>60); Est Glom Filt Rate - Afr Amer 78 mL/min (>60); Globulin 4.4 g/dL (2.2-4.2); Glucose 183 mg/dL (74-106); Potassium 4.2 mmol/L (3.5-5.1); Sodium Level 130 mmol/L (136-145)
== END ==
PROVIDERS: PCP Family Medicine; Referring Provider Surgery; Visit Provider Surgery
DX: R53.83 Other fatigue (principal); R11.10 Vomiting, unspecified
CPT/HCPCS: 36415; 80053; 85025

== ENCOUNTER 2020-01-03 14:33 | Inpatient (IN) | payer MEDICARE, SELFPAY ==
[2020-01-03 14:04] VITALS: BMI 26.3
[2020-01-03 14:34] VITALS: BP 155/93; PULSE 65; RESP 16; TEMP 36.4; O2SAT 95; BMI 25.2
--- NOTE | 2020-01-03 15:02 | ED.VIS.GEN ---
History of Present Illness Chief Complaint: Abd Pain Informant: Patient, - - Surgeon Narrative: Patient is postop day 9 from a laparoscopic cholecystectomy. The past several days he tells me he has had a lower abdominal pain. He went to see his surgeon today. Prior to the visit he had blood work drawn. This showed a white count of 16.4. CMP was also obtained essentially negative. Was noted that the patient has a significant wound of urination as well as some incontinence. Surgeon notes that the incisions appeared well. He had no right upper quadrant pain. Patient states he has been moving his bowels. Last bowel movement was yesterday. He drank water and had a bowl of cereal today. No reported fever. He was sent to the emergency room for further evaluation. Past Medical History - Allergies and Home Meds Allergies/Adverse Reactions: Allergies No Known Allergies Allergy (Verified 12/24/19 22:35) Primary Care Physician: Gianluca Trevino MD [Primary Care Provider] - Surgical History: - - Status post elbow surgery, back surgery, s/p 6 cardiac stents Smoking Status: Never smoker - Family History Maternal Family History: Family History (Last Reviewed 01/03/20 @ 14:03 by Elle Peña) Mother Skin cancer Cancer Sister Cancer Family History: Reports: Cancer Paternal Family History: Family History (Last Reviewed 01/03/20 @ 14:03 by Elle Peña) Mother Skin cancer Cancer Sister Cancer Family History: Reports: Heart Disease - [place] Review of Systems General: Denies: Chills, Fever, Sweats Eyes: Denies: Visual changes - bilaterally, Diplopia ENT: Denies: Rhinorrhea, Sore throat Cardiovascular: Denies: Chest pain, Palpitations Respiratory: Denies: Dyspnea, Cough, Dyspnea on exertion Gastrointestinal: Reports: Abdominal pain. Denies: Nausea, Vomiting, Diarrhea, Melena, Hematochezia Genitourinary: Reports: Frequency. Denies: Dysuria, Hematuria Musculoskeletal: Denies: Back pain, Extremity Pain Skin: Denies: Rash, Wounds Neurological: Denies: Headache, Weakness, Numbness Physical Exam Vital Signs/Narrative: Vital Signs Temp Pulse Resp BP Pulse Ox 01/03/20 14:34 97.5 F L 65 16 155/93 H 95 Inital Vital Signs reviewed: Yes General: Well nourished, Well developed, No Acute Distress Head: Normocephalic, Atraumatic Eyes: Perrl, EOMI ENT: Moist mucous membranes, No rhinorrhea Neck: Supple, Nontender Cardiovascular: Regular rate, Regular rhythm, No murmurs Respiratory: No distress, CTA bilaterally, Chest nontender Abdomen: Soft, Nondistended, Normal bowel sounds, Tender, - - Incisions are clean dry and intact. Negative for: Guarding - Mild lower abdominal tenderness, Rebound tenderness Back: Nontender, Normal Inspection Extremities: Nontender, No edema Skin: Normal color, No rash Neurological: Alert, Oriented x3, Cranial nerves II-XII grossly intact, Normal Strength, Normal Sensation Psychological: Normal affect, Normal Mood Diagnostic/Tx/Re-eval - Medical Decision Making Patient's outpatient labs were reviewed which revealed a leukocytosis of 16,000. CT shows intra-abdominal abscess the gallbladder fossa. Patient received Zosyn after blood cultures. I spoke with Dr. Magana who has reviewed the images and who saw the patient earlier today. Plan is admission. ED Disposition - Plan for ED Patient: Disposition: Acute Care Hospital [facility] Diagnosis: Postoperative abscess Referrals: Gianluca Trevino MD [Primary Care Provider] -
--- NOTE | 2020-01-03 15:05 | CT_ITS ---
STUDY: CT ABDOMEN AND PELVIS WITH CONTRAST REASON FOR EXAM: Male, 79 years old. Acute abdominal pain, hypertension RADIATION DOSAGE (If Supplied By Facility): CTDIvol = ( 11.18 ) mGy, DLP = ( 732.04 ) mGycm TECHNIQUE: Transaxial images were obtained from the dome of the diaphragm to the symphysis pubis with oral contrast. Oral and amp; IV GASTROGRAFIN and amp; 100ML ISOVUE 300 was administered. Sagittal and coronal images were reconstructed. Individualized dose optimization techniques were used for this CT. COMPARISON: 12/22/2019 FINDINGS: Chronic interstitial changes in both lung patel with development of pneumonitis in the right lower lobe with associated effusion. Calcified coronary vessels noted. Mild fatty infiltration of the liver as noted, there is a thin rim of ascites around the periphery of the liver. The patient''s history states recent cholecystectomy. However, within the gallbladder fossa is an abnormal fluid collection with containing air bubbles with induration of the perihepatic fat and a second organized fluid collection along the inferior right lobe of the liver. Findings suggest postoperative abscesses or bilomas. Normal spleen. Normal pancreas. Normal bilateral adrenal glands. There is mild right hydronephrosis and hydroureter likely due to the inflammatory changes previously described are likely affecting the mid and distal right ureter. Normal left kidney. There is a small hiatal hernia. Normal small intestine. There are multiple colonic diverticula consistent with diverticulosis. The appendix is visualized and appears normal. Appendix best seen on coronal recon images 66-68. There is diffuse atherosclerotic calcification of the abdominal aorta, without a demonstrated aneurysm. Normal inferior vena cava. Normal retroperitoneum. Normal urinary bladder. Normal abdominal wall. There are diffuse degenerative changes of the visualized lumbar spine, and pelvis. Stable chronic L1 compression fracture with stable retropulsion into the central canal approximately 40%. CT/Abdomen/Pelvis WITH Contrast IMPRESSION: Agents history states recent cholecystectomy. There are 2 separate well-defined fluid collections within the gallbladder fossa region suggesting abscesses or bilomas. There is associated induration of the perihepatic fat. The larger of the 2 fluid collections contains air and measures approximately 7.2 x 3.6 cm, the smaller cysts along the inferior edge of the right lobe of the liver and measures 4.2 x 3.0 cm. Surgical consultation recommended. Mild fatty infiltration of the liver with a thin rim of ascites. Mild right hydronephrosis and hydroureter likely due to the inflammatory stranding in the right peritoneum Small hiatal hernia Degenerative bony changes with stable L1 compression fracture with approximate 40% retropulsion N.B. : The above information has been verbally conveyed by Sarmad Grewal MD to Valentino Nichols MD, on 01/03/2020 17:32:41 (ET). Electronically Signed: Sarmad Grewal MD at 17:33 EDT , Service support ,
[2020-01-03] MEDS: 0.9% Normal Saline 1,000 ML 125 ML IV (15:58)
[2020-01-03 16:05] LABS: Bacteria 0 SEEN /hpf (None Seen); Mucous, Urine 0 SEEN /hpf (<or=2+); Red Blood Cells-Urine 0 SEEN /hpf (0-5); White Blood Cells 0 SEEN /hpf (0-5)
[2020-01-03 16:08] LABS: Glucose, Dipstick Normal (Normal); Ketone-Dipstick Negative (Negative); Leukocyte Esterase-Dipstick Negative /ul (Negative); Nitrite-Dipstick Negative (Negative); Occult Blood-Urine Negative /ul (Negative); Protein-Dipstick Negative (Negative); Specific Gravity, Urine 1.015 (1.002-1.030); Urine Bilirubin Dipstick Negative (Negative); Urine Urobilinogen 8 mg/dl (Normal)
[2020-01-03 16:09] LABS: Color, Urine YELLOW (Yellow); Urine Clarity Clear (Clear)
[2020-01-03 16:16] LABS: Squamous Epithelial Cells - UA 0-5 SEEN /hpf (0-5)
[2020-01-03 16:18] LABS: Renal Epithelial Cells 0-5 SEEN /hpf (0-5)
[2020-01-03 17:15] VITALS: BP 130/73; PULSE 64; RESP 17; TEMP 36.7; O2SAT 96
--- NOTE | 2020-01-03 17:49 | PCM.HP.STD ---
Problem List (1) Postoperative abscess Status: Acute History of Present Illness Date of Admission: 01/03/20 The patient is a 79 year old M who was doing well after cholecystectomy. Two days ago he developed fatigue and yesterday began to vomit. He has not had any fevers or chills. No cough. Reports some pain at his umbilical incision. 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) Arthritis (Chronic) Hx of heart artery stent (Chronic) X6 History of heart attack (Chronic) Low back problem (Chronic) Medical History: Medical History (Last Reviewed 01/03/20 @ 14:03 by Elle Peña) Secondary adrenal insufficiency (Chronic) E27.49 Secondary hypothyroidism (Chronic) E03.8 pituitary macroadenoma resection (Chronic) Left breast lump (Acute) N63.20 Abnormal ultrasound of breast (Acute) R92.8 Arthritis (Chronic) M19.90 History of heart attack (Chronic) I25.2 Low back problem (Chronic) M53.9 Fatigue (Acute) R53.83 Allergies No Known Allergies Allergy (Verified 12/24/19 22:35) Home Medications: Ambulatory Orders Medication Instructions Recorded tamsulosin 0.4 mg capsule 0.4 mg PO QHS cap 04/24/19 Escitalopram Oxalate 10 mg PO DAILY 10/24/19 Finasteride 5 mg PO DAILY 10/24/19 Levothyroxine [Synthroid] 100 mcg PO DAILY 10/24/19 Losartan Potassium [Cozaar] 25 mg PO DAILY 10/24/19 Metformin HCl [Metformin HCl ER] 500 mg PO DAILY 10/24/19 Azelastine HCl [Astelin] 2 spray NARES TID 11/01/19 Nitroglycerin 2.5 mg PO PRN PRN 11/01/19 Atorvastatin Calcium [Lipitor] 20 mg PO DAILY 12/25/19 Hydrocortisone See Rx Instructions PO BID 12/25/19 Acetaminophen [Tylenol Tablet] 650 mg PO Q6H PRN PRN tab 12/27/19 Surgical History: Surgical History (Last Updated 01/03/20 @ 14:05 by Elle Peña) Hx of left breast biopsy (Resolved) Z98.890 Gynecomastia only on biopsy 04/28/2019 Hx of colonoscopy (Resolved) Z98.890 History of back surgery (Resolved) Z98.890 L3& L4 Fusion Hx of elbow surgery (Resolved) Z98.890 Left Hx of heart artery stent (Chronic) Z95.5 X6 History of cholecystectomy Onset Date: ~12/2019 Z90.49 Surgical History: - - Status post elbow surgery, back surgery, s/p 6 cardiac stents Psychiatric History: No pertinent psych hx Smoking Status: Never smoker - *Family History Maternal Family History: Family History (Last Reviewed 01/03/20 @ 14:03 by Elle Peña) Mother Skin cancer Cancer Sister Cancer History Items: Cancer Paternal Family History: Family History (Last Reviewed 01/03/20 @ 14:03 by Elle Peña) Mother Skin cancer Cancer Sister Cancer History Items: Heart Disease - [place] Review of Systems Constitutional: Reports: Anorexia, Fatigue. Denies: Fever HEENT: Denies: Difficulty Hearing, Difficulty Swallowing Cardiovascular: Denies: Chest Pain Respiratory: Denies: Cough, Shortness of Breath Gastrointestinal: Reports: Abdominal Pain, Constipation, Vomiting. Denies: Diarrhea, Nausea Genitourinary: Reports: Frequency. Denies: Dysuria Skin: Denies: Jaundice Neurological: Reports: Balance problems VTE Information - Inpt Only VTE Present on Admission: No VTE Mechan Device Prophylaxis: SCD's Patient Problems: Active and Suspected Problems (Last Reviewed 01/03/20 @ 14:03 by Elle Peña) Postoperative abscess (Acute) - Physical Exam Vitals/I&O's: Vital Signs Temp Pulse Resp BP Pulse Ox 98.1 F 64 17 130/73 H 96 01/03/20 17:15 01/03/20 17:15 01/03/20 17:15 01/03/20 17:15 01/03/20 17:15 Oxygen Delivery Method Room Air Weight: 176 lb Body Mass Index (BMI) 25.2 General: Alert, Cooperative, No apparent distress Neck: No JVD Lungs: Normal air movement Cardiovascular: Regular rate, Regular Rhythm Abdomen: Soft, Non Tender, Non-Distended Musculoskeletal: No Muscle Wasting Psych/Mental Status: Normal Affect Laboratory Results 01/03/20 15:10: Urine Color YELLOW, Urine Clarity Clear, Urine pH 6.0, Ur Specific [place] 1.015, Urine Protein Negative, Urine Glucose (UA) Normal, Urine Ketones Negative, Urine Occult Blood Negative, Urine Nitrite Negative, Urine Bilirubin Negative, Urine Urobilinogen 8 H, Ur Leukocyte Esterase Negative, Urine RBC 0 SEEN, Urine WBC 0 SEEN, Ur Squamous Epith Cells 0-5 SEEN, Ur Renal Epithelial Cell 0-5 SEEN, Urine Bacteria 0 SEEN, Urine Mucus 0 SEEN Clinical Impression(s) from Imaging Studies Abdomen/Pelvis CT 01/03/20 15:05 IMPRESSION: Agents history states recent cholecystectomy. There are 2 separate well-defined fluid collections within the gallbladder fossa region suggesting abscesses or bilomas. There is associated induration of the perihepatic fat. The larger of the 2 fluid collections contains air and measures approximately 7.2 x 3.6 cm, the smaller cysts along the inferior edge of the right lobe of the liver and measures 4.2 x 3.0 cm. Surgical consultation recommended. Mild fatty infiltration of the liver with a thin rim of ascites. Mild right hydronephrosis and hydroureter likely due to the inflammatory stranding in the right peritoneum Small hiatal hernia Degenerative bony changes with stable L1 compression fracture with approximate 40% retropulsion N.B. : The above information has been verbally conveyed by Sarmad Grewal MD to Valentino Nichols MD, on 01/03/2020 17:32:41 (ET). Electronically Signed: Sarmad Grewal MD at 17:33 EDT , Service support , ADDENDUM: 01/03/20 [id number] IMPRESSION: Agents history states recent cholecystectomy. There are 2 separate well-defined fluid collections within the gallbladder fossa region suggesting abscesses or bilomas. There is associated induration of the perihepatic fat. The larger of the 2 fluid collections contains air and measures approximately 7.2 x 3.6 cm, the smaller cysts along the inferior edge of the right lobe of the liver and measures 4.2 x 3.0 cm. Surgical consultation recommended. Mild fatty infiltration of the liver with a thin rim of ascites. Mild right hydronephrosis and hydroureter likely due to the inflammatory stranding in the right peritoneum Small hiatal hernia Degenerative bony changes with stable L1 compression fracture with approximate 40% retropulsion N.B. : The above information has been verbally conveyed by Sarmad Grewal MD to Valentino Nichols MD, on 01/03/2020 17:32:41 (ET). Electronically Signed: Sarmad Grewal MD at 17:33 EDT , Service support , Current Medications Acetaminophen (Tylenol) 650 mg PO Q4H PRN PRN PRN Reason: Pain or Fever Sodium Chloride () 1,000 mls @ 125 mls/hr IV .Q8H [facility] Last Admin: 01/03/20 15:58 Dose: 125 mls/hr Documented by: Sodium Chloride () 1,000 mls @ 60 mls/hr IV .[id number] [facility] Piperacillin Sod/Tazobactam (Sod 3.375 gm/ Sodium Chloride) 50 mls @ 12.5 mls/hr IV Q8 [facility] Ondansetron HCl (Zofran) 4 mg IV Q6H PRN PRN PRN Reason: NAUSEA/VOMITING Assessment/Plan All Active Problems (Last Reviewed 01/03/20 @ 14:03 by Elle Peña) Postoperative abscess (Acute) Acute cholecystitis (Acute) Preop cardiovascular exam (Acute) Pituitary adenoma (Resolved) Hx of left breast biopsy (Resolved) Left breast lump (Acute) Abnormal ultrasound of breast (Acute) Hx of colonoscopy (Resolved) History of back surgery (Resolved) Hx of elbow surgery (Resolved) Fatigue (Acute) 79 year old male with postoperative infection 1. Patient had purulent cholecystitis during last admission. He developed nausea and fatigue. CT revealed a fluid collection with air bubbles in the GB fossa. He also has an elevated WBC count with left shift and normal LFT's. The patient likely has a deep postoperative surgical site infection. I will admit him and start him on IV antibiotics and consult IR in the morning to evaluate for percutaneous drainage. I discussed with the patient's and she agrees with treatment plan. I informed her that the only other way to drain the abscess would be repeat surgery which I am hesitant to do due to his risk factors. Rusty Magana MD
[2020-01-03 18:45] VITALS: BP 117/70; PULSE 59; RESP 18; TEMP 37.1; O2SAT 96
[2020-01-03 18:48] LABS: Lactic Acid 1.1 mmol/L (0.4-1.9)
[2020-01-03 20:00] VITALS: BMI 25.2
[2020-01-03 20:04] VITALS: BP 113/66; PULSE 58; RESP 18; TEMP 36.7; O2SAT 94
[2020-01-03 20:12] VITALS: BMI 25.2
[2020-01-03] MEDS: 0.9% Normal Saline 1,000 ML 60 ML IV (20:30)
[2020-01-03] MEDS: Atorvastatin Calcium 20 MG Tablet PO (22:54)
[2020-01-03] MEDS: Tamsulosin HCl 0.4 MG Capsule PO (22:54)
[2020-01-03] MEDS: Docusate Sodium 100 MG Capsule PO (22:54)
[2020-01-03] MEDS: Bisacodyl 10 MG Suppository RECTAL (23:00)
[2020-01-03 23:16] LABS: Bedside Glucose 144 mg/dL (70-110)
[2020-01-04] VITALS (17 sets, daily range): BP systolic 67–148; BP diastolic 31–64; PULSE 46–55; RESP 12–18; TEMP 36.4–36.9; O2SAT 94–100
[2020-01-04] MEDS: Levothyroxine 100 MCG Tablet PO (06:32)
[2020-01-04 07:20] LABS: Bedside Glucose 120 mg/dL (70-110)
[2020-01-04 07:44] LABS: Absolute Lymphocyte Count 1.23 X10^3/uL (0.83-4.51); Basophil# 0.05 X10^3/uL; Basophil% 0.4 % (0-1); Eosinophil# 0.22 X10^3/uL; Eosinophils% 1.8 % (0-5); Hematocrit 32.2 % (40-54); Hemoglobin 10.3 g/dL (13.0-16.5); Lymphocyte # 1.23 X10^3/ul (4.0); Mean Corpuscular Hgb 29.9 pg (27.0-32.0); Mean Corpuscular Volume 93.3 fL (80-94); Mean Platelet Vol. 9.1 fl (6.2-12.0); Monocyte# 0.63 X10^3/uL; Monocyte% 5.1 % (0-10); NRBC Flagged by Analyzer 0 % (0-5); Neutrophil # 9.99 X10^3/uL (2.7-7.7); Neutrophil % 81.3 % (47-70); Platelet Count 327 K/mm3 (150-450); RBC Distribution Width CV 13.2 % (11.6-14.6); RBC Distribution Width SD 44.4 fl (35.1-43.9); Red Blood Count 3.45 M/mm3 (4.6-6.2); White Blood Count 12.3 K/mm3 (4.4-11.0)
[2020-01-04 07:53] LABS: International Normalized Ratio 1.4; Prothrombin Time (Protime)PT. 16.2 SECONDS (11.7-14.9)
[2020-01-04 07:54] LABS: Partial Thromboplast Time 39.4 Seconds (24.1-36.2)
--- NOTE | 2020-01-04 07:57 | PN.SURG_ITS ---
Patient Problems: Active and Suspected Problems (Last Reviewed 01/03/20 @ 14:03 by Elle Peña) Postoperative abscess (Acute) Subjective: The patient did have some nausea overnight but no vomiting. He is not complain of any abdominal pain this morning. - Physical Exam Vitals/I&O's: Vital Signs Temp Pulse Resp BP Pulse Ox 98.3 F 55 L 18 99/50 L 95 01/04/20 02:26 01/04/20 02:31 01/04/20 02:26 01/04/20 02:26 01/04/20 02:26 Oxygen Delivery Method Room Air Weight: 176 lb 2.389 oz Body Mass Index (BMI) 25.2 Intake and Output for Last 24 Hours 01/02/20 01/03/20 01/04/20 23:59 23:59 23:59 Intake Total 1100 / 1100 450.5 / 450.5 Output Total 700 / 700 Balance 1100 / 1100 -249.5 / -249.5 General: Alert, Cooperative, No apparent distress Lungs: Normal air movement Abdomen: Soft, Non Tender, Non-Distended Laboratory Results 01/03/20 15:10: Urine Color YELLOW, Urine Clarity Clear, Urine pH 6.0, Ur Specific [place] 1.015, Urine Protein Negative, Urine Glucose (UA) Normal, Urine Ketones Negative, Urine Occult Blood Negative, Urine Nitrite Negative, Urine Bilirubin Negative, Urine Urobilinogen 8 H, Ur Leukocyte Esterase Negative, Urine RBC 0 SEEN, Urine WBC 0 SEEN, Ur Squamous Epith Cells 0-5 SEEN, Ur Renal Epithelial Cell 0-5 SEEN, Urine Bacteria 0 SEEN, Urine Mucus 0 SEEN 01/03/20 18:12: Lactic Acid 1.1 01/03/20 22:48: POC Glucose 144 H 01/04/20 06:35: POC Glucose 120 H 01/04/20 06:45: WBC 12.3 H, RBC 3.45 L, Hgb 10.3 L, Hct 32.2 L, MCV 93.3, MCH 29.9, MCHC 32.0, RDW Std Deviation 44.4 H, RDW Coeff of Delisa 13.2, Plt Count 327, MPV 9.1, Immature Gran % (Auto) 1.400 H, Neut % (Auto) 81.3 H, Lymph % (Auto) 10.0 L, Bee % (Auto) 5.1, Eos % (Auto) 1.8, Baso % (Auto) 0.4, Absolute Neuts (auto) 10.0 H, Absolute Lymphs (auto) 1.23, Nucleated RBC % 0 01/04/20 06:45: Sodium Pending, Potassium Pending, Chloride Pending, Carbon Dioxide Pending, Anion Gap Pending, BUN Pending, Creatinine Pending, Est GFR (MDRD) Af Amer Pending, Est GFR (MDRD) Non-Af Pending, BUN/Creatinine Ratio Pending, Glucose Pending, Calcium Pending, Total Bilirubin Pending, AST Pending, ALT Pending, Alkaline Phosphatase Pending, Total Protein Pending, Albumin Pending 01/04/20 06:45: PT 16.2 H, INR 1.4, APTT 39.4 H Current Medications Acetaminophen (Tylenol) 650 mg PO Q4H PRN PRN PRN Reason: Pain 1-10/10 or Fever Atorvastatin Calcium (Lipitor) 20 mg PO QHS [facility] Last Admin: 01/03/20 22:54 Dose: 20 mg Documented by: Docusate Sodium (Colace) 100 mg PO BID [facility] Last Admin: 01/03/20 22:54 Dose: 100 mg Documented by: Escitalopram Oxalate (Lexapro) 10 mg PO DAILY [facility] Finasteride (Proscar) 5 mg PO DAILY [facility] Sodium Chloride () 1,000 mls @ 60 mls/hr IV .[id number] [facility] Last Admin: 01/03/20 20:30 Dose: 60 mls/hr Documented by: Piperacillin Sod/Tazobactam (Sod 3.375 gm/ Sodium Chloride) 50 mls @ 12.5 mls/hr IV Q8 [facility] Last Admin: 01/04/20 06:32 Dose: 12.5 mls/hr Documented by: Sodium Chloride () 250 mls @ 15 mls/hr IV .[id number] PRN PRN Reason: Saline Flush Last Infusion: 01/04/20 02:25 Dose: 0 mls/hr Documented by: Sodium Chloride () 250 mls @ 15 mls/hr IV .[id number] PRN PRN Reason: Additional IVPB Infusion Insulin Human Lispro (Humalog Kwikpen (Bkc)) 0 unit SC [facility]; Protocol Last Admin: 01/04/20 06:35 Dose: Not Given Documented by: Levothyroxine Sodium (Synthroid) 100 mcg PO DAILY@0600 [facility] Last Admin: 01/04/20 06:32 Dose: 100 mcg Documented by: Losartan Potassium (Cozaar) 25 mg PO DAILY [facility] Metformin HCl (Glucophage Xr) 500 mg PO DAILYCM [facility] Nitroglycerin (Nitrostat) 0.4 mg SUBLINGUAL Q5M PRN PRN Reason: CHEST PAIN Nutritional Formula (Lactose Free) (Ensure Clear) 120 ml PO 4X/DAY [facility] Ondansetron HCl (Zofran) 4 mg IV Q6H PRN PRN PRN Reason: NAUSEA/VOMITING Sodium Chloride () 10 - 40 ml IV UD PRN PRN Reason: SALINE FLUSH Tamsulosin HCl (Flomax) 0.4 mg PO QHS [facility] Last Admin: 01/03/20 22:54 Dose: 0.4 mg Documented by: Medical Necessity - Tobacco Use Smoking Status: Never smoker Assessment/Plan All Active Problems (Last Reviewed 01/03/20 @ 14:03 by Elle Peña) Postoperative abscess (Acute) Acute cholecystitis (Acute) Preop cardiovascular exam (Acute) Pituitary adenoma (Resolved) Hx of left breast biopsy (Resolved) Left breast lump (Acute) Abnormal ultrasound of breast (Acute) Hx of colonoscopy (Resolved) History of back surgery (Resolved) Hx of elbow surgery (Resolved) Fatigue (Acute) 79-year-old male with postoperative abscess 1. The patient is responding well to antibiotics and his white count has decreased. He did have some nausea. I have ordered a percutaneous drain placement if possible. If there is no direct route to drain this percutaneously I would recommend continuing antibiotics and repeating a CT scan next week. I believe performing surgery to drain this abscess may be higher risk than benefit. If the patient develops sepsis then that would have to be reconsidered and surgical drainage may be necessary. Rusty Magana MD Pager: [facility] [address] [place] [address], [address] [place] [address] Office:
[2020-01-04 08:13] LABS: ALB/GLOB Ratio 0.5 RATIO (0.9-2.4); AST(SGOT) 31 U/L (15-37); Alanine Aminotransfer ALT/SGPT 38 U/L (16-61); Albumin, Serum 2.2 g/dL (3.2-5.0); Alkaline Phosphatase 137 U/L (45-117); Anion Gap 7 (5-15); BUN 11 mg/dL (7-18); BUN/Creat Ratio 11.8 RATIO (10-20); Calcium,Total 8.5 mg/dL (8.5-10.1); Chloride 99 mmol/L (98-107); Creatinine, Serum 0.93 mg/dL (0.70-1.30); EST Glomerular Filtration Rate 83 mL/min (>60); Est Glom Filt Rate - Afr Amer 101 mL/min (>60); Estimated Creatinine Clearance 67.59 ml/min; Globulin 4.1 g/dL (2.2-4.2); Glucose 114 mg/dL (74-106); Potassium 3.6 mmol/L (3.5-5.1); Protein, Total 6.3 g/dL (6.4-8.2); Sodium Level 133 mmol/L (136-145)
[2020-01-04] MEDS: Acetaminophen 325 MG Tablet 650 MG PO ×3 (10:02→23:56)
[2020-01-04] MEDS: Escitalopram Oxalate 10 MG Tablet PO (10:02)
[2020-01-04] MEDS: Finasteride 5 MG Tablet PO (10:03)
[2020-01-04] MEDS: Docusate Sodium 100 MG Capsule PO (10:05)
--- NOTE | 2020-01-04 11:25 | CT_ITS ---
PROCEDURE: CT-GUIDED CHOLECYSTOSTOMY TUBE PLACEMENT INDICATION: Male, 79 years old. Acute cholecystitis status post glossectomy. Fluid collection containing air bubbles in the gallbladder fossa CT GUIDANCE Individualized dose optimization techniques were used during this procedure CONSENT: The risks, benefits and alternatives to the procedure were explained to the patient, and the patient agreed to the procedure and signed the consent. SEDATION: Intermittent the intravenous and demonstration of Versed and fentanyl by nursing staff under continuous cardiopulmonary monitoring. Sedation less than approximately 30 minutes STERILE BARRIER TECHNIQUE: The following sterile barrier precautions were used during the procedure: hand hygiene; use of 2% chlorhexidine aseptic; use of a cap, mask, sterile gown, sterile gloves, sterile full body drape, and a large sterile sheet. PROCEDURE/TECHNIQUE: The risks, benefits, and alternatives to the procedure were explained to patient, and the patient agreed to the procedure and signed a consent form for the procedure. A timeout was performed to confirm the patient''s identity, the type of procedure, to be performed and the site of entry. Patient was positioned decubitus position on the CT scan table. Under CT guidance using sterile technique and after infiltration of the skin and subcutaneous soft tissues with 40 mL of lidocaine 1% 20-gauge needle was introduced in the gallbladder fossa then 0.018 guidewire was advanced and the needle the needle was removed and a 4 Turkmen sheath was advanced over the guidewire then the existing guidewire is removed and a new 0.035 J-tip guidewire was advanced in the 4 Turkmen dilator then the 4 Turkmen guide is removed and the tract is serially dilated up to 8 Turkmen. An 8 Turkmen catheter is advanced over the guidewire and is coiled within the gallbladder fossa. The drainage catheter is secured to the skin using an adhesive device and is attached to a bag for continuous drainage. There was no immediate complication. FINDINGS: Abscess was successfully drained with an 8 Turkmen catheter.. 80 cc of blood-tinged fluid were removed and sample sent to lab for culture. CT/Abscess/Fistula/Sinus Tract IMPRESSION: Successful abdominal abscess drainage under CT guidance. Electronically Signed: Tiago Daugherty, at 14:16 EDT Tel , Service support ,
--- NOTE | 2020-01-04 11:26 | NURSING ---
Just left the floor to go to procedure in radiology.
[2020-01-04] MEDS: Midazolam 2 MG/2 ML Syringe IV (11:55)
[2020-01-04] MEDS: fentaNYL 100 MCG/2 ML Ampul IV (11:55)
--- NOTE | 2020-01-04 12:48 | DCINST_ITS ---
Discharge Diet: Light diet - advance as tolerated Discharge Activity: Return to Normal Activity May shower in (days): 1 - with the bandage in place. Additional Activity Instructions:: Pain medication may cause nausea. You should typically eat light foods as you take your pain medications. Pain medication may also cause constipation. If this is a problem for you, please discuss with your doctor. Call your doctor if your incision/area has: Continuous Slow Oozing, Sudden Increased Bleeding, Increased Pain/ Swelling, Increased Redness, Foul Smelling Discharge, Fever of 101 or Higher Call your doctor if you observe: Fever of 101 or Higher Suture Line Care: Avoid Pulling/Pushing, Avoid Pinching/Bending Drain: Suction Additional Dressing/Incision Instructions:: measure and record daily output amount Allergies/Adverse Reactions: Allergies No Known Allergies Allergy (Verified 12/24/19 22:35) Medications to take at Discharge tamsulosin 0.4 mg capsule 0.4 mg PO QHS cap 04/24/19 Escitalopram Oxalate 10 mg PO DAILY 10/24/19 Finasteride 5 mg PO DAILY 10/24/19 Levothyroxine [Synthroid] 100 mcg PO DAILY 10/24/19 Losartan Potassium [Cozaar] 25 mg PO DAILY 10/24/19 Metformin HCl [Metformin HCl ER] 500 mg PO DAILY 10/24/19 Azelastine HCl [Astelin] 2 spray NARES TID 11/01/19 Nitroglycerin 2.5 mg PO PRN PRN 11/01/19 Atorvastatin Calcium [Lipitor] 20 mg PO DAILY 12/25/19 Hydrocortisone See Rx Instructions PO BID 12/25/19 Acetaminophen [Tylenol Tablet] 650 mg PO Q6H PRN PRN tab 12/27/19 Acetaminophen [Tylenol Tablet] 650 mg PO Q4H PRN PRN tablet 01/04/20 Amoxicillin/Potassium Clav [Augmentin 875-125 Tablet] 1 ea PO BID 5 Days #10 tab 01/04/20 The following prescriptions were given: Amoxicillin/Potassium Clav [Augmentin 875-125 Tablet] 1 ea PO BID 5 Days #10 tab Transmission Status: Pending to [facility] Primary Care Physician: Gianluca Trevino MD [Primary Care Provider] - Test Results: Test results from this visit will be discussed in further detail at your follow- up appointment, if applicable. Please Follow Up With: Rusty Magana MD When: Please call to schedule follow up appointment for 01/07. [phone]
[2020-01-04] MEDS: Ensure Clear 120 ML Liquid PO ×3 (13:13→21:05)
[2020-01-04] MEDS: 0.9% Normal Saline 1,000 ML 60 ML IV (13:13)
--- NOTE | 2020-01-04 13:21 | CHAPLAIN ---
Type of Pastoral Visit ___ Initial Visit ___ Follow-up Visit ___ On-call Visit ___ General Patient Visit ___ Spiritual Assessment ___ Family Conference ___ Bereavement ___ Rapid Response ___ Code Blue ___ Other (describe below) Pastoral Care Referral From ___ Patient ___ Family ___ Nurse ___ Physician ___ Facility Service Associate ___ Instrument Lens Grinder ___ Other (describe below) Sacrament/Intervention ___ Active listening ___ Anointing ___ Alevism ___ Bereavement ___ Communion ___ Tiffany exploration ___ ___ Life review ___ Prayer ___ Reconciliation ___ Sacrament of Sick ___ Supportive presence ___ Wedding ___ Other (describe below) Pastoral Comments patient is out of his room at time of visit attempt
--- NOTE | 2020-01-04 15:48 | CHAPLAIN ---
Type of Pastoral Visit ___ Initial Visit ___ Follow-up Visit ___ On-call Visit ___ General Patient Visit ___ Spiritual Assessment ___ Family Conference ___ Bereavement ___ Rapid Response ___ Code Blue ___ Other (describe below) Pastoral Care Referral From ___ Patient ___ Family ___ Nurse ___ Physician ___ Design Maintenance Engineer ___ Hospital Pharmacy Director ___ Other (describe below) Sacrament/Intervention ___ Active listening ___ Anointing ___ Orthodox ___ Bereavement ___ Communion ___ Tiffany exploration ___ ___ Life review ___ Prayer ___ Reconciliation ___ Sacrament of Sick ___ Supportive presence ___ Wedding ___ Other (describe below) Pastoral Comments patient is back in his room at second attempt to visit but now he is sleeping; did not try to awaken pt
[2020-01-04 17:13] LABS: Bedside Glucose 150 mg/dL (70-110)
[2020-01-04] MEDS: Ibuprofen 600 MG Tablet PO (20:28)
[2020-01-04 21:45] LABS: Bedside Glucose 135 mg/dL (70-110)
[2020-01-05 02:36] VITALS: BP 124/66; PULSE 51; RESP 16; TEMP 36.4; O2SAT 96
[2020-01-05] MEDS: Ibuprofen 600 MG Tablet PO (04:06)
[2020-01-05] MEDS: 0.9% Normal Saline 1,000 ML 60 ML IV (05:21)
[2020-01-05] MEDS: Acetaminophen 325 MG Tablet 650 MG PO ×2 (05:27→15:57)
[2020-01-05 06:44] LABS: Absolute Lymphocyte Count 1.08 X10^3/uL (0.83-4.51); Absolute Neutrophil Count 5.5 X10^3/uL (2.0-7.7); Basophil# 0.05 X10^3/uL; Basophil% 0.7 % (0-1); Eosinophil# 0.33 X10^3/uL; Eosinophils% 4.4 % (0-5); Hematocrit 29.6 % (40-54); Hemoglobin 9.5 g/dL (13.0-16.5); Lymphocyte # 1.08 X10^3/ul (4.0); Lymphocyte % 14.5 % (19-41); Mean Corp Hgb Conc 32.1 g/dL (32-36); Mean Corpuscular Hgb 29.8 pg (27.0-32.0); Mean Corpuscular Volume 92.8 fL (80-94); Mean Platelet Vol. 8.7 fl (6.2-12.0); Monocyte# 0.46 X10^3/uL; Monocyte% 6.2 % (0-10); NRBC Flagged by Analyzer 0 % (0-5); Neutrophil # 5.45 X10^3/uL (2.7-7.7); Platelet Count 301 K/mm3 (150-450); RBC Distribution Width CV 13.1 % (11.6-14.6); RBC Distribution Width SD 44.3 fl (35.1-43.9); Red Blood Count 3.19 M/mm3 (4.6-6.2); White Blood Count 7.5 K/mm3 (4.4-11.0)
[2020-01-05 06:51] LABS: Bedside Glucose 122 mg/dL (70-110)
[2020-01-05 07:07] LABS: ALB/GLOB Ratio 0.5 RATIO (0.9-2.4); AST(SGOT) 28 U/L (15-37); Alanine Aminotransfer ALT/SGPT 33 U/L (16-61); Albumin, Serum 1.9 g/dL (3.2-5.0); Alkaline Phosphatase 129 U/L (45-117); Anion Gap 8 (5-15); BUN 10 mg/dL (7-18); BUN/Creat Ratio 10.7 RATIO (10-20); Calcium,Total 7.7 mg/dL (8.5-10.1); Chloride 103 mmol/L (98-107); Creatinine, Serum 0.94 mg/dL (0.70-1.30); EST Glomerular Filtration Rate 83 mL/min (>60); Est Glom Filt Rate - Afr Amer 100 mL/min (>60); Estimated Creatinine Clearance 66.87 ml/min; Globulin 3.6 g/dL (2.2-4.2); Glucose 120 mg/dL (74-106); Potassium 3.5 mmol/L (3.5-5.1); Protein, Total 5.5 g/dL (6.4-8.2); Sodium Level 134 mmol/L (136-145)
[2020-01-05 08:06] VITALS: O2SAT 92
[2020-01-05 09:52] VITALS: BP 143/65; PULSE 50; RESP 18; TEMP 36.7; O2SAT 97
--- NOTE | 2020-01-05 10:29 | PN.SURG_ITS ---
Patient Problems: Active and Suspected Problems (Last Reviewed 01/03/20 @ 14:03 by Elle Peña) Postoperative abscess (Acute) Subjective: Patient is not complaining of any discomfort this morning except for where the drain is going in. He has had no nausea no vomiting. Objective: Abdomen is soft incisions are clean. - Physical Exam Vitals/I&O's: Vital Signs Temp Pulse Resp BP Pulse Ox 98.1 F 50 L 18 143/65 H 97 01/05/20 09:52 01/05/20 09:52 01/05/20 09:52 01/05/20 09:52 01/05/20 09:52 Oxygen Flow Rate (L/min) [5] 2 Oxygen Flow Rate (L/min) [4] 2 Oxygen Flow Rate (L/min) [3] 2 Oxygen Flow Rate (L/min) [2] 2 Oxygen Flow Rate (L/min) [1 ( 2 Initial Baseline)] Oxygen Delivery Method [5] Nasal Cannula Oxygen Delivery Method [4] Nasal Cannula Oxygen Delivery Method [3] Nasal Cannula Oxygen Delivery Method [2] Nasal Cannula Oxygen Delivery Method [1 ( Nasal Cannula Initial Baseline)] Oxygen Delivery Method Room Air Weight: 176 lb 2.389 oz Body Mass Index (BMI) 25.2 Intake and Output for Last 24 Hours 01/03/20 01/04/20 01/05/20 23:59 23:59 23:59 Intake Total 1100 / 1100 2380.5 / 2620.5 1458 / 1458 Output Total 1805 / 2105 655 / 655 Balance 1100 / 1100 575.5 / 515.5 803 / 803 Microbiology Past 72 Hours 01/04/20 12:30 Aspirate - Abdominal Gram Stain - Final 01/04/20 12:30 Aspirate - Abdominal Wound Culture - Preliminary No growth-Final to follow Laboratory Results 01/04/20 16:58: POC Glucose 150 H 01/04/20 21:41: POC Glucose 135 H 01/05/20 06:20: WBC 7.5, RBC 3.19 L, Hgb 9.5 L, Hct 29.6 L, MCV 92.8, MCH 29.8, MCHC 32.1, RDW Std Deviation 44.3 H, RDW Coeff of Delisa 13.1, Plt Count 301, MPV 8.7, Immature Gran % (Auto) 1.200 H, Neut % (Auto) 73.0 H, Lymph % (Auto) 14.5 L , [place] % (Auto) 6.2, Eos % (Auto) 4.4, Baso % (Auto) 0.7, Absolute Neuts (auto) 5.5, Absolute Lymphs (auto) 1.08, Nucleated RBC % 0 01/05/20 06:20: Sodium 134 L, Potassium 3.5, Chloride 103, Carbon Dioxide 23.0, Anion Gap 8, BUN 10, Creatinine 0.94, Estim Creat Clear Calc 66.87, Est GFR (MDRD) Af Amer 100, Est GFR (MDRD) Non-Af 83, BUN/Creatinine Ratio 10.7, Glucose 120 H, Calcium 7.7 L, Total Bilirubin 0.80, AST 28, ALT 33, Alkaline Phosphatase 129 H, Total Protein 5.5 L, Albumin 1.9 L, Globulin 3.6, Albumin/Globulin Ratio 0.5 L 01/05/20 06:43: POC Glucose 122 H Current Medications Acetaminophen (Tylenol) 650 mg PO Q4H PRN PRN PRN Reason: Pain 1-10/10 or Fever Last Admin: 01/05/20 05:27 Dose: 650 mg Documented by: Escitalopram Oxalate (Lexapro) 10 mg PO DAILY [facility] Last Admin: 01/04/20 10:02 Dose: 10 mg Documented by: Finasteride (Proscar) 5 mg PO DAILY [facility] Last Admin: 01/04/20 10:03 Dose: 5 mg Documented by: Sodium Chloride () 1,000 mls @ 60 mls/hr IV .[id number] [facility] Last Admin: 01/05/20 05:21 Dose: 60 mls/hr Documented by: Piperacillin Sod/Tazobactam (Sod 3.375 gm/ Sodium Chloride) 50 mls @ 12.5 mls/hr IV Q8 [facility] Last Admin: 01/05/20 05:23 Dose: 12.5 mls/hr Documented by: Ibuprofen (Motrin) 600 mg PO Q6H PRN PRN PRN Reason: Pain Score 1-10/10 Last Admin: 01/05/20 04:06 Dose: 600 mg Documented by: Losartan Potassium (Cozaar) 25 mg PO DAILY [facility] Last Admin: 01/04/20 10:01 Dose: Not Given Documented by: Nutritional Formula (Lactose Free) (Glucerna Shake) 120 ml PO 4X/DAY [facility] Ondansetron HCl (Zofran) 4 mg IV Q6H PRN PRN PRN Reason: NAUSEA/VOMITING Medical Necessity - Tobacco Use Smoking Status: Never smoker Assessment/Plan All Active Problems (Last Reviewed 01/03/20 @ 14:03 by Elle Peña) Postoperative abscess (Acute) Acute cholecystitis (Acute) Preop cardiovascular exam (Acute) Pituitary adenoma (Resolved) Hx of left breast biopsy (Resolved) Left breast lump (Acute) Abnormal ultrasound of breast (Acute) Hx of colonoscopy (Resolved) History of back surgery (Resolved) Hx of elbow surgery (Resolved) Fatigue (Acute) Patient will be discharged later today. We are going to get PT and OT to get him up and get him functional so that he will better be able to do his activities of daily living at his house. He will follow back up with Dr. Magana
[2020-01-05] MEDS: Escitalopram Oxalate 10 MG Tablet PO (11:19)
[2020-01-05] MEDS: Finasteride 5 MG Tablet PO (11:19)
[2020-01-05 12:01] LABS: Bedside Glucose 94 mg/dL (70-110)
--- NOTE | 2020-01-05 15:17 | CASEMGMT ---
Readmission chart review: Pt was initially admitted 12/24-12/27/2019 for abd pain and had a lap nereyda with cholangiogram by Dr. Magana. See CM assessment completed by Louis HERNANDEZ CM on 12/25/2019. Pt then returned on 01/03/2020 for abd pain and dx with post-op abscess and underwent CT guided abscess drainage on 01/04/2020 and has been on iv antibx since admit. CM to follow for any further discharge planning/needs. Carmel HERNANDEZ CM
--- NOTE | 2020-01-05 15:21 | CASEMGMT ---
Therapy is recommending addl therapy at this time. Babita HERNANDEZ aware that [facility] cannot be set up until Sunday 01/07 d/t the Holiday on tuesday and she will let pt know. CM to f/u on tuesday with pt in regards to same to see what he wants to do at that time. Carmel HERNANDEZ CM
[2020-01-05 15:56] VITALS: BP 156/84; PULSE 81; RESP 18; TEMP 36.8; O2SAT 100
[2020-01-05] MEDS: Losartan Potassium 25 MG Tablet PO (15:58)
--- NOTE | 2020-01-05 16:54 | NURSING ---
pt reports that she was not able to parts picker prescription from [facility] retail pharmacy before it closed. spoke with Dr Huynh who gave verbal order to call prescription to [facility] in [place]. called at this time and family updated.
--- NOTE | 2020-01-08 13:09 | CASEMGMT ---
.DAVID SULLIVAN DC PHONE CALL DC DATE: 01.05.2020 DC DISPOSITION: Home DC DIAGNOSIS: Postop Abscess LACE/STRATA: 25/10 F/U APPTS MADE PRIOR TO DC: no Referral received that pt was to have [facility] PT/OT set up. Attempted call to listed home phone. This number was not working. Call to son who gave another number and stated his mother's cell phone is not working. Attempted call back to this number but a call screening came on and did not connect call. Call returned to son's phone- message left with call back information stating if pt would like [facility] set up, to call DAVID SULLIVAN. - List of [facility] agencies for pt are: [facility], [facility] and [facility]. Calli BARRIOSN RN AC
== END 2020-01-05 17:22 | disposition home or self-care (01) | DRG 862 ==
LOC: ED 17:44 → MS3 01-04 08:20 → ED 01-04 11:16 → MS3 01-04 11:17
PROVIDERS: Admitting Provider Surgery; Emergency Provider Emergency Medicine; PCP Family Medicine; Visit Provider Surgery
DX: T81.43XA Infection following a procedure, organ and space surgical site, initial encounter (principal); K65.1 Peritoneal abscess; E27.49 Other adrenocortical insufficiency; Y83.8 Other surgical procedures as the cause of abnormal reaction of the patient, or of later complication, without mention of misadventure at the time of the procedure; I25.10 Atherosclerotic heart disease of native coronary artery without angina pectoris; I25.2 Old myocardial infarction; M19.90 Unspecified osteoarthritis, unspecified site; E03.8 Other specified hypothyroidism; G89.29 Other chronic pain; Z90.49 Acquired absence of other specified parts of digestive tract; R53.83 Other fatigue; R11.10 Vomiting, unspecified
CPT/HCPCS: 20501; 36415; 74177; 77012; 80053; 81001; 82962; 83605; 85025; 85610; 85730; 87040; 87070; 87075; 87205; 97162; 97165; 99156; 99157; 99284; J7030; J7040; J7050; Q9967; A4216

== ENCOUNTER 2020-01-16 13:41 | Emergency (ER) | payer MEDICARE, SELFPAY ==
[2020-01-16] VITALS (9 sets, daily range): BP systolic 117–145; BP diastolic 59–82; PULSE 55–81; RESP 16–19; TEMP 36.3–37.1; O2SAT 95–198; BMI 23.9
--- NOTE | 2020-01-16 14:22 | EKG12_ITS ---
Test Reason : COUGH Blood Pressure : / mmHG Vent. Rate : 058 BPM Atrial Rate : 058 BPM P-R Int : 196 ms QRS Dur : 102 ms QT Int : 472 ms P-R-T Axes : 025 001 015 degrees QTc Int : [address] & T wave abnormality, consider anterior ischemia Abnormal ECG Confirmed by IAN HDEZ ([id number]), associate editor PEBBLES PAULSON ([id number]) on 01/24/2020 7:44:21 AM Referred By: RILEY Confirmed By:IAN HDEZ
--- NOTE | 2020-01-16 14:25 | ED.DCSUM_ITS ---
History of Present Illness Chief Complaint: Weakness Informant: Patient, Family, PCP - Abdominal Pain/Flank Pain Onset: Weeks - 3-4 Context: Gradual Onset Timing: Continuous Quality: - - no pain Location: Diffuse Current Severity: Severe Maximum Severity: Severe Worsened by: - - vomiting Relieved by: Nothing - Nausea/Vomiting/Emesis GI Symptom: Nausea, Vomiting Onset: Weeks - 3-4 Quality: Nonbilious. Negative for: Blood streaks, Coffee ground, Hematemesis - Diarrhea/Melena/Hematochezia GI Symptom: - - having BMs and they are normal. Negative for: Diarrhea, Melena, Hematochezia Associated Symptoms: Frequency - usually, but now decreased UOP. Negative for: Dysuria, Hematuria, Urgency Narrative: Patient and his are fairly poor historians, however it appears that he has been vomiting chronically, worse in the past 3 or 4 weeks. He had a cholecystectomy around 10 days ago, patient states he was having pain prior to that and the pain is gone now, however PCP states this was basically to try to solve his chronic vomiting and it did not help it. He has had a 15-20 pound weight loss in the past month, mostly after the surgery. He has not able to keep much down except for small amounts of fluid occasionally. He denies any trouble breathing. States he has had a cough for 2 or 3 weeks that is nonproductive. No fevers. No hematemesis, bright red blood per rectum, or melena. He saw his surgeon Dr. Magana yesterday, who thought this was not a surgical issue and wanted the patient to be admitted to the hospital for further medical work-up and treatment but he refused. He saw his PCP today, now he is amenable to being admitted and they are here in the ER as a result. He has felt lightheaded especially when standing, he has come close to passing out from time to time, the last time this happened was last night when he had a minor fall and bumped his right elbow, he does not think it is majorly injured and had move it okay, he did not pass out or injure anything else. He has been able to bear weight with assistance since then without any pain as a result. Patient and state that he has adrenal issues they think because he had a surgery on his pituitary long ago. They do not know what medicines they take but they did bring a list. 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 Past Medical History - Allergies and Home Meds Allergies/Adverse Reactions: Allergies No Known Allergies Allergy (Verified 01/16/20 13:42) Primary Care Physician: Gianluca Trevino MD [Primary Care Provider] - Surgical History: - - Status post elbow surgery, back surgery, s/p 6 cardiac stents, pituitary adenoma resection, orthopedic surgeries Lives: Spouse/ Significant Other Smoking Status: Never smoker - Family History Maternal Family History: Family History (Last Reviewed 01/08/20 @ 14:12 by Nadia Cartwright) Mother Skin cancer Cancer Sister Cancer Family History: Reports: Cancer Paternal Family History: Family History (Last Reviewed 01/08/20 @ 14:12 by Nadia Cartwright) Mother Skin cancer Cancer Sister Cancer Family History: Reports: Heart Disease - [place] Review of Systems General: Reports: Malaise. Denies: Chills, Fever, Sweats Eyes: Denies: Visual changes - bilaterally, Diplopia ENT: Denies: Bilateral ear pain, Rhinorrhea, Sore throat Cardiovascular: Denies: Chest pain, Palpitations Respiratory: Reports: Cough. Denies: Dyspnea, Sputum, Dyspnea on exertion Gastrointestinal: Reports: Nausea, Vomiting. Denies: Abdominal pain, Diarrhea, Melena, Hematochezia Genitourinary: Denies: Dysuria, Hematuria, Frequency Musculoskeletal: Denies: Neck pain, Back pain, Swelling, Extremity Pain Skin: Denies: Rash, Wounds Neurological: Denies: Headache, Weakness, Numbness Physical Exam Vital Signs/Narrative: Vital Signs Temp Pulse Resp BP Pulse Ox 01/16/20 13:47 97.4 F L 81 16 119/78 97 01/16/20 13:43 97.4 F L 81 16 119/78 97 Inital Vital Signs reviewed: Yes General: Well nourished, Well developed, No Acute Distress - Conversive in full sentences, keenly alert, sitting in bed Head: Normocephalic, Atraumatic Eyes: Perrl, EOMI ENT: Moist mucous membranes, No rhinorrhea, - - Posterior oropharynx clear normal. Negative for: Sinus tenderness Neck: Supple, Nontender, No lymphadenopathy, No JVD Cardiovascular: Regular rate, Regular rhythm, No murmurs, Normal S1, Normal S2. Negative for: Tachycardia Respiratory: No distress, CTA bilaterally, Chest nontender Abdomen: Soft, Nontender, Nondistended, Normal bowel sounds Back: Nontender, Normal Inspection. Negative for: CVA tenderness Extremities: Nontender, No edema. Negative for: Calf Tenderness Skin: Normal color, No rash, No Trauma, - - Well-healing surgical incisions laparoscopic, abdominal wall Neurological: Alert, Oriented x3, Cranial nerves II-XII grossly intact, Normal Strength, Normal Sensation Psychological: Normal affect, Normal Mood Diagnostic/Tx/Re-eval Impressions Chest X-Ray 01/16/20 14:55 IMPRESSION: Normal x-ray examination of the chest. Electronically Signed: Luis Fontaine, at 15:20 EDT , Service support , 01/16/20 14:55 Chest 1 View (Portable) [RAD] Stat Laboratory Results 01/16/20 01/16/20 01/16/20 14:48 14:48 14:48 WBC 7.4 RBC 4.00 L Hgb 12.0 L Hct 36.8 L MCV 92.0 MCH 30.0 MCHC 32.6 RDW Std Deviation 44.3 H RDW Coeff of Delisa 13.0 Plt Count 274 MPV 8.7 Immature Gran % (Auto) 0.800 Neut % (Auto) 64.8 Lymph % (Auto) 22.0 [place] % (Auto) 8.1 Eos % (Auto) 3.2 Baso % (Auto) 1.1 H Absolute Neuts (auto) 4.8 Absolute Lymphs (auto) 1.63 Nucleated RBC % 0 Sodium 132 L Potassium 3.8 Chloride 93 L Carbon Dioxide 30.0 Anion Gap 9 BUN 15 Creatinine 1.11 Estim Creat Clear Calc 56.63 Est GFR (MDRD) Af Amer 82 Est GFR (MDRD) Non-Af 68 BUN/Creatinine Ratio 13.5 Glucose 122 H Calcium 9.1 Total Bilirubin 0.90 AST 32 ALT 41 Alkaline Phosphatase 108 Troponin I < 0.015 Total Protein 7.5 Albumin 3.0 L Globulin 4.5 H Albumin/Globulin Ratio 0.7 L Lipase 124 TSH 0.22 L Thyroxine (T4) 9.7 Cortisol 12.80 Urine Color Urine Clarity Urine pH Ur Specific [place] Urine Protein Urine Glucose (UA) Urine Ketones Urine Occult Blood Urine Nitrite Urine Bilirubin Urine Urobilinogen Ur Leukocyte Esterase Urine RBC Urine WBC Ur Squamous Epith Cells Urine Bacteria Urine Mucus 01/16/20 14:52 WBC RBC Hgb Hct MCV MCH MCHC RDW Std Deviation RDW Coeff of Delisa Plt Count MPV Immature Gran % (Auto) Neut % (Auto) Lymph % (Auto) [place] % (Auto) Eos % (Auto) Baso % (Auto) Absolute Neuts (auto) Absolute Lymphs (auto) Nucleated RBC % Sodium Potassium Chloride Carbon Dioxide Anion Gap BUN Creatinine Estim Creat Clear Calc Est GFR (MDRD) Af Amer Est GFR (MDRD) Non-Af BUN/Creatinine Ratio Glucose Calcium Total Bilirubin AST ALT Alkaline Phosphatase Troponin I Total Protein Albumin Globulin Albumin/Globulin Ratio Lipase TSH Thyroxine (T4) Cortisol Urine Color Yellow Urine Clarity Sl. Cloudy Urine pH 6.0 Ur Specific [place] 1.020 Urine Protein 15 H Urine Glucose (UA) Normal Urine Ketones Negative Urine Occult Blood Negative Urine Nitrite Negative Urine Bilirubin Negative Urine Urobilinogen Normal Ur Leukocyte Esterase Negative Urine RBC 0 SEEN Urine WBC 0 SEEN Ur Squamous Epith Cells 0 SEEN Urine Bacteria RARE Urine Mucus 1+ - Rhythm Strip Rhythm Strip: Sinus Rhythm Rate: 58 Ectopy: None - EKG Initial EKG Interpretation: Sinus Rhythm, No Acute Injury Pattern, Non-Specific ST Changes - V1-3 Prior: Unchanged - Medical Decision Making Discussed with Dr. Magana. He states that postoperatively the patient was having a lot of pain and still vomiting, and CT scan showed what appeared to be an abscess in the gallbladder fossa. A drain was put in, it drained it, his pain resolved, the drain was removed and the patient has remained pain-free ever since. Given that he does not have a leukocytosis at this time or pain or tenderness, we both agree that a CT probably would not be helpful. He remained stable. I discussed with PCP Dr. Trevino as well. He agrees patient was having a lot of pain when he needed a drain in his abdomen but has none now, very benign abdomen, and agrees that a CT would unlikely be helpful at this time especially since his CT showed nothing else last time. I discussed with the and patient. They were on Zofran but it was not helping and he still was dry heaving on occasion. He is on metformin, however they have not been told that he has diabetes. I question whether he could have gastroparesis or some other functional disorder of the gastrointestinal system. That would be difficult to diagnose here in the ER and especially in this hospital since we do not have GI. I discussed the possibility of admission for 23-hour observation which she meets criteria for only at this time, versus transfer which may be difficult given his work-up, versus following up at home. The del concerned about the possibility that sometimes he is very weak and unable to walk. If that is the case, I recommend admission for possible PT/OT evaluation and placement even if short-term, after his 23-hour observation if that is the case. Patient states he wants to go home and he feels fine. With nursing got him up, he stood and walked with very little assistance and said that he feels fine. He does not want to be admitted right now and he does not want to be transferred, he wants to go home and accepted my offer for prescription for Reglan. Dr. Trevino aware, they will follow-up closely in the office. ED Disposition - Plan for ED Patient: Disposition: Home or Assisted Living Diagnosis: Vomiting, Cough, Muscle weakness (generalized) Instructions: ED Weakness UKO, ED Nausea Vomiting Adult Prescriptions: Metoclopramide [Reglan] 10 mg PO Q6H PRN #20 tab PRN Reason: nausea/vomiting Prescription Printed Referrals: Gianluca Trevino MD [Primary Care Provider] - 3-5 Days
[2020-01-16] MEDS: Ondansetron 4 MG/2 ML Vial IV (14:44)
[2020-01-16] MEDS: 0.9% Normal Saline 1,000 ML 150 ML IV (14:44)
--- NOTE | 2020-01-16 14:55 | RAD_ITS ---
STUDY: X-RAY CHEST REASON FOR EXAM: Male, 79 years old. COUGH X1 MONTH, GALLBLADDER TAKEN OUT 10 DAYS AGO. NOW N/V AND LOOSING WEIGHT TECHNIQUE: Single AP portable view of the chest. COMPARISON: Comparison is made with prior examination dated December 24, 2019. FINDINGS: The lungs are clear and expanded. There is no demonstrated pleural abnormality. Normal size heart. Normal mediastinum and rd. Normal visualized pulmonary arteries. Normal visualized aortic arch and descending thoracic aorta. There are degenerative changes of the visualized thoracic spine. Normal visualized ribs, clavicles, and shoulders. There is no demonstrated abnormality of the visualized soft tissue structures of the upper abdomen. RAD/Chest 1 View (Portable) IMPRESSION: Normal x-ray examination of the chest. Electronically Signed: Luis Fontaine, at 15:20 EDT , Service support ,
[2020-01-16 14:58] LABS: Red Blood Cells-Urine 0 SEEN /hpf (0-5); Squamous Epithelial Cells - UA 0 SEEN /hpf (0-5); White Blood Cells 0 SEEN /hpf (0-5)
[2020-01-16 14:58] LABS: Absolute Lymphocyte Count 1.63 X10^3/uL (0.83-4.51); Absolute Neutrophil Count 4.8 X10^3/uL (2.0-7.7); Basophil# 0.08 X10^3/uL; Basophil% 1.1 % (0-1); Eosinophil# 0.24 X10^3/uL; Eosinophils% 3.2 % (0-5); Hematocrit 36.8 % (40-54); Lymphocyte # 1.63 X10^3/ul (4.0); Mean Corp Hgb Conc 32.6 g/dL (32-36); Mean Platelet Vol. 8.7 fl (6.2-12.0); Monocyte% 8.1 % (0-10); NRBC Flagged by Analyzer 0 % (0-5); Neutrophil # 4.81 X10^3/uL (2.7-7.7); Neutrophil % 64.8 % (47-70); Platelet Count 274 K/mm3 (150-450); RBC Distribution Width SD 44.3 fl (35.1-43.9); White Blood Count 7.4 K/mm3 (4.4-11.0)
[2020-01-16 15:01] LABS: Color, Urine Yellow (Yellow); Glucose, Dipstick Normal (Normal); Ketone-Dipstick Negative (Negative); Leukocyte Esterase-Dipstick Negative /ul (Negative); Nitrite-Dipstick Negative (Negative); Occult Blood-Urine Negative /ul (Negative); Protein-Dipstick 15 mg/dl (Negative); Urine Bilirubin Dipstick Negative (Negative); Urine Clarity Sl. Cloudy (Clear); Urine Urobilinogen Normal (Normal)
[2020-01-16 15:17] LABS: Bacteria RARE /hpf (None Seen); Mucous, Urine 1+ /hpf (<or=2+)
[2020-01-16 15:18] LABS: ALB/GLOB Ratio 0.7 RATIO (0.9-2.4); AST(SGOT) 32 U/L (15-37); Alanine Aminotransfer ALT/SGPT 41 U/L (16-61); Alkaline Phosphatase 108 U/L (45-117); Anion Gap 9 (5-15); BUN 15 mg/dL (7-18); BUN/Creat Ratio 13.5 RATIO (10-20); Calcium,Total 9.1 mg/dL (8.5-10.1); Chloride 93 mmol/L (98-107); Creatinine, Serum 1.11 mg/dL (0.70-1.30); EST Glomerular Filtration Rate 68 mL/min (>60); Est Glom Filt Rate - Afr Amer 82 mL/min (>60); Estimated Creatinine Clearance 56.63 ml/min; Globulin 4.5 g/dL (2.2-4.2); Glucose 122 mg/dL (74-106); Lipase 124 U/L (73-393); Potassium 3.8 mmol/L (3.5-5.1); Protein, Total 7.5 g/dL (6.4-8.2); Sodium Level 132 mmol/L (136-145); T4 Total, Thyroxin 9.7 ug/dL (4.5-12.1); Thyroid Stim Hormone (TSH) 0.22 uIU/mL (0.358-3.74)
[2020-01-16] MEDS: Metoclopramide 10 MG/2 ML Vial 5 MG IV (17:35)
== END 2020-01-16 19:30 | disposition home or self-care (01) ==
PROVIDERS: Emergency Provider Emergency Medicine; PCP Family Medicine
DX: R11.2 Nausea with vomiting, unspecified (principal); R05 Cough; M62.81 Muscle weakness (generalized); I25.10 Atherosclerotic heart disease of native coronary artery without angina pectoris; E03.9 Hypothyroidism, unspecified; Z95.5 Presence of coronary angioplasty implant and graft; Z79.82 Long term (current) use of aspirin
CPT/HCPCS: 71045; 80053; 81001; 82533; 83690; 84436; 84443; 84484; 85025; 93005; 96361; 96374; 96375; 99285; J7030; A4216; J2405

== ENCOUNTER 2020-03-07 13:38 | Emergency (ER) | payer MEDICARE, SELFPAY ==
[2020-01-16 13:43] VITALS: BMI 23.9
[2020-03-07 13:39] VITALS: BP 105/48; PULSE 64; RESP 16; TEMP 36.3; O2SAT 96; BMI 25.0
--- NOTE | 2020-03-07 13:51 | CT_ITS ---
STUDY: CT BRAIN WITHOUT CONTRAST REASON FOR EXAM: Male, 79 years old. LOSS OF BALANCE/HEAD INJURY RADIATION DOSAGE (If Supplied By Facility): CTDIvol = ( ) mGy, DLP = ( ) mGycm TECHNIQUE: Transaxial CT imaging of the brain was performed without administration of intravenous contrast material. Individualized dose optimization techniques were used for this CT. COMPARISON: 11/01/2019 FINDINGS: Normal soft tissue structures. Normal calvarium. There is moderate cerebral atrophy with widening of the extra-axial spaces and ventricular dilatation. There are areas of decreased attenuation within the white matter tracts of the supratentorial brain, consistent with microvascular disease changes. Normal basal ganglia and thalami. Normal brainstem. There is moderate cerebellar atrophy. There is no intracranial hemorrhage. There are no findings of an acute ischemic infarction. Normal visualized paranasal sinuses. CT/Brain/Head without Contrast IMPRESSION: Chronic involutional changes of the brain. Electronically Signed: Sarmad Grewal MD at 14:45 EDT , Service support ,
--- NOTE | 2020-03-07 13:52 | ED.VIS.GEN ---
History of Present Illness Chief Complaint: Fall Informant: Patient, Family Onset: Today Narrative: 79-year-old male with past medical history of hypertension and coronary artery disease presents with concern for fall. States that he was trying to slip his shoes off when entering the home when he fell backwards and struck the back of his head. No loss of consciousness. States he has slight pain around the area. Denies any nausea or vomiting. Patient states that he is on blood thinning medication but cannot remember the name of this medication. Denies any lightheadedness, dizziness, chest pain, shortness of breath prior to the fall. Past Medical History - Allergies and Home Meds Allergies/Adverse Reactions: Allergies No Known Allergies Allergy (Verified 03/07/20 13:39) Primary Care Physician: Gianluca Trevino MD [Primary Care Provider] - Prior records reviewed: Yes Past Medical History: - - HTN, CAD Surgical History: - - Status post elbow surgery, back surgery, s/p 6 cardiac stents, pituitary adenoma resection, orthopedic surgeries Lives: Spouse/ Significant Other Smoking Status: Never smoker Alcohol: None Drugs: None - Family History Maternal Family History: Family History (Last Reviewed 01/08/20 @ 14:12 by Nadia Cartwright) Mother Skin cancer Cancer Sister Cancer Family History: Reports: Cancer Paternal Family History: Family History (Last Reviewed 01/08/20 @ 14:12 by Nadia Cartwright) Mother Skin cancer Cancer Sister Cancer Family History: Reports: Heart Disease - [place] Review of Systems General: Denies: Chills, Fever, Sweats Eyes: Denies: Visual changes - bilaterally, Diplopia ENT: Denies: Rhinorrhea, Sore throat Cardiovascular: Denies: Chest pain, Palpitations Respiratory: Denies: Dyspnea, Cough, Dyspnea on exertion Gastrointestinal: Denies: Abdominal pain, Nausea, Vomiting, Diarrhea, Melena, Hematochezia Genitourinary: Denies: Dysuria, Hematuria, Frequency Musculoskeletal: Denies: Back pain, Extremity Pain Skin: Reports: Wounds. Denies: Rash Neurological: Denies: Headache, Weakness, Numbness Physical Exam Vital Signs/Narrative: Vital Signs Temp Pulse Resp BP Pulse Ox 03/07/20 13:39 97.4 F L 64 16 105/48 L 96 Inital Vital Signs reviewed: Yes General: Well nourished, Well developed, No Acute Distress Head: Normocephalic, - - Hematoma with small abrasion to the occipital scalp measuring approximately 3 cm. No laceration. Eyes: Perrl, EOMI ENT: Moist mucous membranes, No rhinorrhea Neck: Supple, Nontender Cardiovascular: Regular rate, Regular rhythm, No murmurs Respiratory: No distress, CTA bilaterally, Chest nontender Abdomen: Soft, Nontender, Nondistended, Normal bowel sounds Back: Nontender, Normal Inspection Extremities: Nontender, No edema Skin: Normal color, No rash Neurological: Alert, Oriented x3, Cranial nerves II-XII grossly intact, Normal Strength, Normal Sensation Psychological: Normal affect, Normal Mood Diagnostic/Tx/Re-eval - Medical Decision Making Patient appears well nontoxic. Vital signs within normal limits. Evidence of abrasion without laceration. Tetanus updated. Wound cleansed. Dressed. CT negative. Patient advised to return for any vomiting or confusion. Both patient and agreeable and he was discharged home in stable condition. Impression: 1. Mechanical fall 2. Closed head injury ED Disposition - Plan for ED Patient: Disposition: Home or Assisted Living Instructions: ED Mechanical Fall Referrals: Gianluca Trevino MD [Primary Care Provider] -
[2020-03-07] MEDS: Diphth,Pertuss(Acell),Tet Vac 0.5 ML Vial IM (15:07)
== END 2020-03-07 15:19 | disposition home or self-care (01) ==
PROVIDERS: Emergency Provider Emergency Medicine; PCP Family Medicine
DX: S09.90XA Unspecified injury of head, initial encounter (principal); I25.10 Atherosclerotic heart disease of native coronary artery without angina pectoris; W19.XXXA Unspecified fall, initial encounter
CPT/HCPCS: 70450; 90715; 96372; 99282

== ENCOUNTER 2020-05-09 08:57 | Outpatient (RCR) | payer MEDICARE, SELFPAY ==
[2020-03-14 10:06] VITALS: BMI 25.0
--- NOTE | 2020-05-09 10:56 | HP.PTEVAL ---
Patient's Visit Information KEN ALFRED is a 79 year old M referred to Physical Therapy by Dr. Gianluca Trevino MD with a diagnosis of LUMBAR STENOSIS AND H/O COMPRESSION FRACTURE L3. Date of Evaluation: 05/09/20 Physical Therapist: Casey Scott, PT, Cert MDT, OCS - Visit Plan Frequency: 2x /Week Duration: 4 Weeks Plan: H/O LUMBAR LIMINECTOMY 2019. H/O SEVERE COMPRESSION FRACTURE L3 LAST YEAR AVOID FLEXION. PROVIDE LUMBAR BRACE. RECENTLY BEEN DX WITH PARKINSONS. PT INTERVENTIONS PROGRESS BALANCE PROGRAM ,GAIT,STRENGTHENING BLE,FLEXABLITY LE,POSTURAL EX'S,DLS ABD/BACK - Subjective This 79 y/o male presents to physical therapy with lumbar stenosis and h/o cpmpression fracture. Patient had lumbar limbar surgery laminectomy 2019 at [facility]. Patient has of recent falls last year.Patient had severe compression L3. Patient seen DR rodrigues to work on gait. Patient has recently diagonsed with Parkinsons 2 months ago.Patient has some pain lumbar pain. Patient denies parathesia/tingling. Bowel/bladder -.Patient condition with lumbar , balance ,gait and h/o lumbar surgery affects ADL' and function. Patient 1 story home with 3 steps with rails. Patient jeevan to bath and dress I . Patient condtion affects QOL.Patient denies dizziness,light headed ,h/o mild vertogo. SOCAIL: . VOCATION: retired - Pain Bilateral Back Pain Intensity (Out of 10): 3 Pain Intensity Range: 10 - Objective POSTURE: mild foward posture. GAIT: reciprocal pattern shuffle gait with decrease step length, slow cadance,decrease UE reciprocal motion. SYMMTRIES: align. NEURO: denies parathesia/tingling,reflexes L3-4,L4-5,L5-S1 1/3. MMT: quads/hams 4-/5,4-/5 hip flexion ,ankle 4/5. LUMBAR ROM: flexion mod tight,extension mod/severe tight,side glides mod tight. FLEXABILITY: hams mod tight - Special Tests L/S Slump test left side: Negative L/S Slump test right side: Negative L/S Left Straight Leg Raise: Negative L/S Right Straight Leg Raise: Negative - Balance Scores Functional Gait Assessment Score: 14 % Disability: 53.3400 CATSIB Score (Max score 120 seconds): 70 - Goals Goal 1:: Patient to be I with HEP Goal Time Frame: 4-6 Weeks Goal 2:: Patient improve quality of gait with improved gait pattern. Goal Time Frame: 4-6 Weeks Goal 3:: Patient to improve CATSIB by 5 points or > to decrease risk of falls Goal Time Frame: 4-6 Weeks Goal 4:: Patient to improve functional gait assessement score by 5-10 points or > to improve QOL. Goal Time Frame: 4-6 Weeks Goal 5:: Patient improve back owestry score by 5 points or > to improve function. Goal Time Frame: 4-6 Weeks Goal 6:: Patient to increase stength quads/hams /hip 4/5 to improve gait Goal Time Frame: 4-6 Weeks - Rehabilitation Potential Physical Therapy Diagnosis: This patient has multiple comorbities to influence condition included falls with parkisons and compression fracture. Patient has h/o lumbar surgery 2019. Patient has balance deficits affects gait ,strength and generalized weakness thus benifit with skilled PT Rehabilitation Potential: Good - Anticipated Interventions Patient/Client Instruction: Educate patient on: Condition, Plan of Care For the Purpose of:: To decrease pain, To increase ROM, To improve muscle performance and motor function, To improve ability to perform ADL's, To increase tolerance to activity/condition/position, To improve ability of physical actions for home/community/work/leisure, To improve gait and locomotor functions, To increase flexibility/ROM, To improve endurance, To improve balance, To improve safety with gait, To reduce risk of recurrence, To improve ability to perform tasks related to life management Therapeutic Exercise to Include: Strength training, Body mechanics, Postural training, Flexibilty training, Dynamic Lumbar Stabilization For the Purpose of:: To decrease pain, To improve muscle performance and motor function, To improve ability to perform ADL's, To increase tolerance to activity/condition/position, To improve performance and independence with ADL's, To improve ability of physical actions for home/community/work/leisure, To improve gait and locomotor functions, To improve endurance, To improve balance, To improve safety with gait, To assume or resume ADL's Thank you for the opportunity to evaluate your patient. For Medicare and Medicare HMO plans, please review the plan of care and approve it. It will need to be FAXED BACK to us at [phone] for Medicare purposes. For Medicare only, by signing this I certify the plan of care. Please let me know if there are questions or concerns regarding this plan of care. Physician Signature: Date:
--- NOTE | 2020-08-20 10:25 | HP.PT.NRP ---
KEN ALFRED was seen in my office for initial evaluation on 05/09/20. The following Plan of Care was established for this patient: Initial Frequency: 2x /Week Initial Duration: 4 Weeks Patient/Client Instruction: Educate patient on: Condition, Plan of Care For the Purpose of:: To decrease pain, To increase ROM, To improve muscle performance and motor function, To improve ability to perform ADL's, To increase tolerance to activity/condition/position, To improve ability of physical actions for home/community/work/leisure, To improve gait and locomotor functions, To increase flexibility/ROM, To improve endurance, To improve balance, To improve safety with gait, To reduce risk of recurrence, To improve ability to perform tasks related to life management Therapeutic Exercise to Include: Strength training, Body mechanics, Postural training, Flexibilty training, Dynamic Lumbar Stabilization For the Purpose of:: To decrease pain, To improve muscle performance and motor function, To improve ability to perform ADL's, To increase tolerance to activity/condition/position, To improve performance and independence with ADL's, To improve ability of physical actions for home/community/work/leisure, To improve gait and locomotor functions, To improve endurance, To improve balance, To improve safety with gait, To assume or resume ADL's This patient was last seen in our office . Pertinent comments regarding their Physical therapy will appear below: Patient seen for [facility] PT ioana bush d/c At this point I will be discontinuing this patient from physical therapy. I would be happy to see this patient again in the future if found appropriate by the physician. Thank you! Casey Scott, PT, Cert MDT, OCS
== END 2020-05-09 19:00 | disposition home or self-care (01) ==
LOC: PT 08:57
PROVIDERS: PCP Family Medicine; Referring Provider Family Medicine; Visit Provider Family Medicine
DX: M48.061 Spinal stenosis, lumbar region without neurogenic claudication (principal); R26.89 Other abnormalities of gait and mobility; Z87.311 Personal history of (healed) other pathological fracture
CPT/HCPCS: 97162

== ENCOUNTER → 2020-08-01 10:50 | Outpatient (CLI) | payer MEDICARE, SELFPAY ==
[2020-07-24 13:14] VITALS: BMI 30.5
[2020-08-01 11:49] LABS: Hematocrit 37.5 % (40-54); Hemoglobin 12.4 g/dL (13.0-16.5); Mean Corp Hgb Conc 33.1 g/dL (32-36); Mean Corpuscular Hgb 32.2 pg (27.0-32.0); Mean Corpuscular Volume 97.4 fL (80-94); Mean Platelet Vol. 9.1 fl (6.2-12.0); Platelet Count 191 K/mm3 (150-450); RBC Distribution Width CV 12.9 % (11.6-14.6); RBC Distribution Width SD 45.9 fl (35.1-43.9); Red Blood Count 3.85 M/mm3 (4.6-6.2); White Blood Count 6.4 K/mm3 (4.4-11.0)
[2020-08-01 12:08] LABS: Creatinine, Serum 1.41 mg/dL (0.70-1.30); EST Glomerular Filtration Rate 52 mL/min (>60); Est Glom Filt Rate - Afr Amer 62 mL/min (>60)
[2020-08-01 12:13] LABS: Vitamin B12 419 pg/mL (211-911)
== END ==
PROVIDERS: Nurse Practitioner Family; Psychiatry & Neurology Neurology; PCP Family Medicine; Referring Provider Orthopaedic Surgery Orthopaedic Surgery of the Spine; Visit Provider Orthopaedic Surgery Orthopaedic Surgery of the Spine
DX: G31.84 Mild cognitive impairment of uncertain or unknown etiology (principal); S32.001A Stable burst fracture of unspecified lumbar vertebra, initial encounter for closed fracture
CPT/HCPCS: 36415; 82565; 82607; 82746; 85027

== ENCOUNTER → 2020-08-05 10:37 | Outpatient (CLI) | payer MEDICARE, SELFPAY ==
[2020-03-14 10:06] VITALS: BMI 25.0
[2020-07-24 13:14] VITALS: BMI 30.5
--- NOTE | 2020-08-05 10:53 | MRI_ITS ---
STUDY: MRI LUMBAR SPINE WITHOUT CONTRAST REASON FOR EXAM: Male, 80 years old. Stable burst fracture TECHNIQUE: Standardized fat and water weighted pulse sequences were obtained in the sagittal and axial planes. COMPARISON: 10/05/2019 FINDINGS: Lumbar lordosis maintained. Levoscoliosis. Conus medullaris terminates normally at the L1 level. Chronic L1 compression fracture with mild persistent bone marrow edema (sagittal image 7 series 4). 8 mm retropulsion at the L1 level. No new fracture line. No dislocation. No acute cortical destruction. Paraspinal muscle atrophy. Normal retroperitoneum. Abdominal aortic aneurysm measuring 2.8 CM. Postsurgical scar with laminectomies. T12-L1: L1 compression fracture. Disc/retropulsed bone with moderate central canal narrowing. Facet joint arthrosis. Lateral recess narrowing with early contact of the descending nerve roots. Neural foraminal narrowing without impingement. L1-2: Mild endplate spondylosis. Disc desiccation. Facet joint arthrosis. Normal central canal and bilateral lateral recesses. Neural foraminal narrowing without impingement. L2-3: Minimal endplate spondylosis. Shallow disc bulge. Facet joint arthrosis. Normal central canal and bilateral lateral recesses. Neural foraminal narrowing without impingement. L3-4: Mild endplate spondylosis. Central/right paracentral disc protrusion without central canal narrowing. Facet joint arthrosis. Normal central canal and bilateral lateral recesses. Neural foraminal narrowing with impingement on the right. L4-5: Mild endplate spondylosis. Disc bulge without central canal narrowing. Facet joint arthrosis. Normal central canal and bilateral lateral recesses. Neural foraminal narrowing without impingement. L5-S1: Normal endplates. Disc bulge, annular fissure, without central canal narrowing. Facet joint arthrosis. Normal central canal and bilateral lateral recesses. Neural foraminal narrowing without impingement. MRI/Spine Lumbar (Routine) IMPRESSION: Stable L1 compression fracture with retropulsion Multilevel intervertebral disc disease with central canal narrowing most severe at L1 secondary to retropulsion Multilevel neural foraminal narrowing with impingement of the right exiting L3 nerve root Multilevel uncomplicated laminectomies with surgical scar Bilateral lateral recess narrowing at T12-L1 with minimal contact of the descending nerve roots Small abdominal aortic aneurysm (2.7 cm) Electronically Signed: Sigifredo Rdz DO at 9:20 EST Tel , Service support ,
== END ==
PROVIDERS: PCP Family Medicine; Referring Provider Orthopaedic Surgery Orthopaedic Surgery of the Spine; Visit Provider Orthopaedic Surgery Orthopaedic Surgery of the Spine
DX: S32.001A Stable burst fracture of unspecified lumbar vertebra, initial encounter for closed fracture (principal); S32.000A Wedge compression fracture of unspecified lumbar vertebra, initial encounter for closed fracture
CPT/HCPCS: 72148

== ENCOUNTER → 2020-08-20 08:57 | Outpatient (CLI) | payer MEDICARE, SELFPAY ==
[2020-07-24 13:14] VITALS: BMI 30.5
--- NOTE | 2020-08-20 09:00 | RAD_ITS ---
STUDY: X-RAY CHEST REASON FOR EXAM: Male, 80 years old. pre op TECHNIQUE: PA and lateral views of the chest. COMPARISON: 01/16/2020 FINDINGS: The lungs are clear and expanded. There is no demonstrated pleural abnormality. Normal size heart. Normal mediastinum and rd. Normal visualized pulmonary arteries. Normal visualized aortic arch and descending thoracic aorta. Normal visualized thoracic spine. Normal visualized ribs, clavicles, and shoulders. There is no demonstrated abnormality of the visualized soft tissue structures of the upper abdomen. RAD/Chest PA and Lateral IMPRESSION: Normal x-ray examination of the chest. Electronically Signed: Sher Gomez MD at 17:01 EST Tel , Service support ,
[2020-08-20 10:52] LABS: Anion Gap 5 (5-15); BUN 24 mg/dL (7-18); BUN/Creat Ratio 17.1 RATIO (10-20); Calcium,Total 9.1 mg/dL (8.5-10.1); Chloride 102 mmol/L (98-107); Cholesterol 188 mg/dL (200); EST Glomerular Filtration Rate 52 mL/min (>60); Est Glom Filt Rate - Afr Amer 63 mL/min (>60); Glucose 110 mg/dL (74-106); High Density Lipoprotein 55 mg/dL; Potassium 3.7 mmol/L (3.5-5.1); Sodium Level 136 mmol/L (136-145); T4 Free Direct 0.77 ng/dL (0.76-1.46); Thyroid Stim Hormone (TSH) 0.79 uIU/mL (0.358-3.74); Triglycerides 172 mg/dL; Very Low Density Lipoprotein 34 mg/dL (5-40)
[2020-08-20 11:08] LABS: International Normalized Ratio 1.1; Prothrombin Time (Protime)PT. 13.2 SECONDS (11.7-14.9)
[2020-08-20 11:09] LABS: Partial Thromboplast Time 27.2 Seconds (24.1-36.2)
[2020-08-20 11:32] LABS: Hematocrit 40.4 % (40-54); Mean Corp Hgb Conc 32.2 g/dL (32-36); Mean Corpuscular Hgb 31.7 pg (27.0-32.0); Mean Corpuscular Volume 98.5 fL (80-94); Mean Platelet Vol. 9.8 fl (6.2-12.0); Platelet Count 196 K/mm3 (150-450); RBC Distribution Width CV 12.8 % (11.6-14.6); White Blood Count 7.4 K/mm3 (4.4-11.0)
== END ==
PROVIDERS: PCP Family Medicine; Referring Provider Family Medicine; Visit Provider Family Medicine
DX: Z01.818 Encounter for other preprocedural examination (principal); N28.9 Disorder of kidney and ureter, unspecified; E03.9 Hypothyroidism, unspecified; I25.10 Atherosclerotic heart disease of native coronary artery without angina pectoris
CPT/HCPCS: 36415; 71046; 80048; 80061; 84439; 84443; 85027; 85610; 85730

== ENCOUNTER 2020-09-08 15:13 | Inpatient (IN) | payer MEDICARE, SELFPAY ==
[2020-07-24 13:14] VITALS: BMI 30.5
[2020-09-08 15:17] VITALS: BP 142/81; PULSE 69; RESP 18; TEMP 36.2; O2SAT 94; BMI 29.4
[2020-09-08] MEDS: Hydrocortisone 10 MG Tablet 20 MG PO (17:44)
[2020-09-08] MEDS: Nystatin Powder 15gm Bottle 1 APPLIC TOPICAL (17:46)
[2020-09-08] MEDS: Menthol/Lanolin/Calamine/Znox 113 GM Tube 1 APPLIC TOPICAL (17:46)
--- NOTE | 2020-09-08 19:14 | PCM.HP.STD ---
Problem List (1) Debility Status: Acute (2) Low back pain Status: Acute (3) Closed burst fracture of lumbar vertebra Status: Acute (4) Memory impairment Status: Chronic (5) Acute confusion Status: Acute (6) Parkinson disease Status: Chronic (7) Adrenal insufficiency Status: Chronic (8) Intracranial aneurysm Status: Chronic (9) Hypothyroidism Status: Chronic (10) Benign prostate hyperplasia Status: Chronic (11) Lumbar disc disease Status: Chronic (12) Coronary artery disease Status: Chronic (13) Hypertension Status: Chronic (14) Gout Status: Chronic (15) Osteoarthritis Status: Chronic (16) GERD (gastroesophageal reflux disease) Status: Chronic (17) Lumbar spinal stenosis Status: Chronic (18) Obstructive sleep apnea Status: Chronic History of Present Illness Date of Admission: 09/08/20 Chief Complaint: Here for rehabilitation, strengthening, prior to discharge home with . The patient is a 80 year old Male with below past medical history with followin09/02/2020 Dr. Malhotra performed fusion T11-L3 instrumented, local bone graft. Lumbar sacral orthosis with chair back. Postoperative course complicated by confusion. 09/08/2020 Admit to TCU with debility, here for rehabilitation, strengthening, prior to discharge home with . 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) Secondary adrenal insufficiency (Chronic) 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) Arthritis (Chronic) Hx of heart artery stent (Chronic) X6 History of heart attack (Chronic) Low back problem (Chronic) Medical History: Medical History (Last Updated 07/24/20 @ 13:17 by Zahra Chacko) Postoperative abscess (Acute) T81.49XA Acute cholecystitis (Acute) K81.0 Cholecystitis (Suspected) K81.9 CAD in [place] artery (Chronic) I25.10 Preop cardiovascular exam (Acute) Z01.810 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) E29.1 Secondary adrenal insufficiency (Chronic) E27.49 Secondary hypothyroidism (Chronic) E03.8 pituitary macroadenoma resection (Chronic) Left breast lump (Acute) N63.20 Abnormal ultrasound of breast (Acute) R92.8 Arthritis (Chronic) M19.90 History of heart attack (Chronic) I25.2 Low back problem (Chronic) M53.9 Fatigue (Acute) R53.83 History of pituitary tumor resection 2018 Allergies No Known Allergies Allergy (Verified 07/24/20 13:05) Home Medications: Ambulatory Orders Medication Instructions Recorded Escitalopram Oxalate 10 mg PO DAILY 10/24/19 Finasteride 5 mg PO DAILY 10/24/19 Losartan Potassium [Cozaar] 25 mg PO DAILY 10/24/19 Atorvastatin Calcium [Lipitor] 20 mg PO DAILY 12/25/19 Acetaminophen [Tylenol Tablet] 650 mg PO Q4H PRN PRN tab 01/04/20 Aspirin [Aspir 81] 81 mg PO DAILY 01/16/20 Atenolol 25 mg PO DAILY 01/16/20 Fluticasone 0.05% [Flonase Nasal 2 spray NASAL DAILY 01/16/20 Pierce] Hydrochlorothiazide 12.5 mg PO DAILY 01/16/20 Pantoprazole Sodium 40 mg PO DAILY 01/16/20 Tamsulosin HCl [Flomax] 0.8 mg PO QHS 01/16/20 traZODone [Desyrel] 50 mg PO QHS 01/16/20 carbidopa 25 mg-levodopa 100 mg 1 tab PO TID tab 07/24/20 tablet Cholecalciferol (Vitamin D3) 2,000 unit PO DAILY 09/08/20 [Vitamin D3] Hydrocortisone [Cortef] 20 mg PO BID 09/08/20 Levothyroxine Sodium [Synthroid] 100 mcg PO DAILY 09/08/20 Oxycodone HCl/Acetaminophen 1 - 2 ea PO Q4H PRN PRN 09/08/20 [Percocet 5-325 mg Tablet] Surgical History: Surgical History (Last Reviewed 07/24/20 @ 13:06 by Zahra Chacko) Hx of left breast biopsy (Resolved) Z98.890 Gynecomastia only on biopsy 04/28/2019 Hx of colonoscopy (Resolved) Z98.890 History of back surgery (Resolved) Z98.890 L3& L4 Fusion Hx of elbow surgery (Resolved) Z98.890 Left Hx of heart artery stent (Chronic) Z95.5 X6 History of cholecystectomy Onset Date: ~12/2019 Z90.49 Surgical History: angioplasty - Cardiac stents x 6., cholecystectomy, - - Intracranial aneurysm, Status post elbow surgery, back surgery, pituitary adenoma resection, orthopedic surgeries Psychiatric History: No pertinent psych hx Lives: Spouse/ Significant Other Smoking Status: Never smoker Tobacco Use: Non-smoker Alcohol: None Drugs: None - *Family History Maternal Family History: Family History (Last Reviewed 07/24/20 @ 13:06 by Zahra Chacko) Mother Skin cancer Cancer Sister Cancer History Items: Cancer Paternal Family History: Family History (Last Reviewed 07/24/20 @ 13:06 by Zahra Chacko) Mother Skin cancer Cancer Sister Cancer History Items: Heart Disease - [place] Review of Systems Constitutional: Denies: Chills, Fever, Weight Change HEENT: Denies: Head Aches, Sinus Congestion, Sinus Drainage Cardiovascular: Denies: Chest Pain, Palpitations Respiratory: Denies: Cough, Shortness of breath at rest, Sputum production Gastrointestinal: Denies: Abdominal Pain, Nausea, Vomiting Genitourinary: Denies: Dysuria Musculoskeletal: Denies: Joint Pain, Joint Tenderness Skin: Denies: Rash, Wounds Neurological: Denies: Numbness, Tingling, Focal weakness Psychiatric: Denies: Anxiety, Depression, Homicidal Ideations, Suicidal Ideations Hematologic/ Lymphatic: Denies: Easy Bruising, Easy Bleeding VTE Information - Inpt Only VTE Present on Admission: No VTE Mechan Device Prophylaxis: Knee High LAURYN Hose VTE Pharm Prophylaxis ordered?: Yes Patient Problems: Active and Suspected Problems (Last Updated 07/24/20 @ 13:17 by Zahra Chacko) Debility (Acute) Low back pain (Acute) Closed burst fracture of lumbar vertebra (Acute) Acute confusion (Acute) - Physical Exam Vitals/I&O's: Vital Signs Temp Pulse Resp BP Pulse Ox 97.1 F L 69 18 142/81 H 94 09/08/20 15:17 09/08/20 15:17 09/08/20 15:17 09/08/20 15:17 09/08/20 15:17 Oxygen Delivery Method Room Air Weight: 92.986 kg Body Mass Index (BMI) 29.4 General: Alert, Oriented x3, Cooperative HEENT: Atraumatic, PERRLA, EOMI, Normocephalic Neck: Supple, No JVD, Negative Carotid Bruits Lungs: Clear to auscultation, Normal air movement Cardiovascular: Regular rate, No murmurs Abdomen: Bowel Sounds Present, Soft, Non Tender Extremities: No edema, Capillary Refill Less than 3 Seconds Skin: No rashes, No breakdown Musculoskeletal: No Tenderness to Palpation of Joints or Extremities Neurological: Cranial nerves II-XII grossly intact Psych/Mental Status: Normal Affect, Appropriate Current Medications Aspirin (Aspirin E.C. 81 Mg Tablet) 81 mg PO DAILY [facility] Atorvastatin Calcium (Atorvastatin Calcium 20 Mg Tablet) 20 mg PO QHS [facility] Calamine/Phenol (Menthol/Lanolin/Calamine/Znox 113 Gm Tube) 1 applic TOPICAL BID [facility]; Protocol Last Admin: 09/08/20 17:46 Dose: 1 applicatio Documented by: Carbidopa/Levodopa (Carbidopa/Levodopa 25/100 Tablet) 1 tablet PO TID [facility] Cholecalciferol (Cholecalciferol (Vit D3) 1,000 Unit (25mcg)) 2,000 unit PO DAILY [facility] Hydrocortisone (Hydrocortisone 10 Mg Tablet) 20 mg PO BID [facility] Last Admin: 09/08/20 17:44 Dose: 20 mg Documented by: Influenza Virus Vaccine Quadrival (Influenza Vaccine (6mos+)/Pf 0.5 Ml Syringe) 0.5 ml IM .ONCE ONE Stop: 09/09/20 10:01 Levothyroxine Sodium (Levothyroxine 100 Mcg Tablet) 100 mcg PO DAILY [facility] Losartan Potassium (Losartan Potassium 25 Mg Tablet) 25 mg PO DAILY [facility] Nystatin (Nystatin Powder 15gm Bottle) 1 applic TOPICAL BID [facility]; Protocol Last Admin: 09/08/20 17:46 Dose: 1 applicatio Documented by: Oxycodone HCl (Oxycodone 5 Mg Tablet) 1 - 2 mg PO Q4H PRN PRN PRN Reason: Pain 1-10 or Fever Tamsulosin HCl (Tamsulosin Hcl 0.4 Mg Capsule) 0.8 mg PO QHS [facility] Trazodone HCl (Trazodone 50 Mg Tablet) 50 mg PO QHS [facility] Tuberculin PPD (Tuberculin,Purif.Prot.Deriv. 50 Tu/Ml Vial) 5 tu ID X1 ONE Stop: 09/09/20 10:01 Tuberculin PPD (Tuberculin,Purif.Prot.Deriv. 50 Tu/Ml Vial) 5 tu ID X1 ONE Stop: 09/16/20 10:01 Assessment/Plan All Active Problems (Last Updated 07/24/20 @ 13:17 by Zahra Chacko) Debility (Acute) Low back pain (Acute) Closed burst fracture of lumbar vertebra (Acute) Acute confusion (Acute) Postoperative abscess (Acute) Acute cholecystitis (Acute) Preop cardiovascular exam (Acute) Pituitary adenoma (Resolved) Hx of left breast biopsy (Resolved) Left breast lump (Acute) Abnormal ultrasound of breast (Acute) Hx of colonoscopy (Resolved) History of back surgery (Resolved) Hx of elbow surgery (Resolved) Fatigue (Acute) 80 year old male with below past medical history hospitalized for T11-L3 instrumented fusion, local bone graft, postoperative course complicated by encephalopathy, admitted to TCU with debility, here for rehabilitation, strengthening, prior to discharge home with . Debility - PT/OT. Pain - Tylenol 1000MG Q6H PRN pain (1-5), Oxycodone 5MG Q4H PRN pain (6-10). Bowel - Miralax 17GM daily, Senna/colace 1 tablet BID, MOM 30ML daily PRN, Dulcolax 10MG [place] daily PRN. Adult immunization - Administer Prevnar 13, Pneumovax 23, Fluzone, COVID19 vaccine as appropriate. DVT prophylaxis - Lovenox 40MG SC daily. Coronary Artery Disease - Losartan 25MG daily, Aspirin 81MG daily. Hyperlipidemia - Atorvastatin 20MG QHS. Parkinson Disease - Sinemet 25/100MG TID. Vitamin D deficiency - D3 2000IU daily. Adrenal insufficiency - Cortef 20MG BID. Hypothyroidism - Levothyroxine 100MCG daily. Skin irritation - Calmoseptine topical BID. Tinea Corporis - Nystatin powder topical BID. BPH - Tamsulosin 0.8MG QHS. Insomnia - Trazodone 50MG QHS.
[2020-09-08] MEDS: Tamsulosin HCl 0.4 MG Capsule 0.8 MG PO (22:13)
[2020-09-08] MEDS: traZODone 50 MG Tablet PO (22:13)
[2020-09-08] MEDS: Carbidopa/Levodopa 25/100 Tablet PO (22:14)
[2020-09-08] MEDS: Acetaminophen 500 MG Tablet 1000 MG PO (22:29)
[2020-09-08] MEDS: Atorvastatin Calcium 20 MG Tablet PO (23:45)
[2020-09-09] MEDS: Menthol/Lanolin/Calamine/Znox 113 GM Tube 1 APPLIC TOPICAL ×2 (05:22→17:17)
[2020-09-09] MEDS: Losartan Potassium 25 MG Tablet PO (05:23)
[2020-09-09] MEDS: Hydrocortisone 10 MG Tablet 20 MG PO ×2 (05:23→17:17)
[2020-09-09] MEDS: Senna/Docusate Sodium 1 Tablet PO ×2 (05:24→17:17)
[2020-09-09] MEDS: Nystatin Powder 15gm Bottle 1 APPLIC TOPICAL ×2 (05:24→17:17)
[2020-09-09] MEDS: Polyethylene Glycol 3350 17 GM PACKET PO (05:25)
[2020-09-09] MEDS: Carbidopa/Levodopa 25/100 Tablet PO ×3 (05:25→21:01)
[2020-09-09] MEDS: Enoxaparin 40 MG/0.4 ML Syringe SC (05:25)
[2020-09-09] MEDS: Levothyroxine 100 MCG Tablet PO (05:25)
[2020-09-09] MEDS: Aspirin E.C. 81 MG Tablet PO (05:26)
[2020-09-09 05:37] VITALS: BP 140/82; PULSE 62; RESP 18; TEMP 36.1; O2SAT 93
[2020-09-09 06:35] LABS: Basophil# 0.05 X10^3/uL; Basophil% 0.6 % (0-1); Eosinophil# 0.31 X10^3/uL; Eosinophils% 3.4 % (0-5); Hemoglobin 10.6 g/dL (13.0-16.5); Lymphocyte % 18.9 % (19-41); Mean Corp Hgb Conc 33.1 g/dL (32-36); Mean Corpuscular Hgb 31.9 pg (27.0-32.0); Mean Corpuscular Volume 96.4 fL (80-94); Mean Platelet Vol. 8.9 fl (6.2-12.0); Monocyte# 0.58 X10^3/uL; Monocyte% 6.4 % (0-10); NRBC Flagged by Analyzer 0 % (0-5); Neutrophil # 6.02 X10^3/uL (2.7-7.7); Neutrophil % 66.9 % (47-70); Platelet Count 249 K/mm3 (150-450); RBC Distribution Width CV 12.4 % (11.6-14.6); RBC Distribution Width SD 44.5 fl (35.1-43.9); Red Blood Count 3.32 M/mm3 (4.6-6.2)
[2020-09-09 06:58] LABS: Anion Gap 7 (5-15); BUN 22 mg/dL (7-18); BUN/Creat Ratio 18.2 RATIO (10-20); Calcium,Total 8.2 mg/dL (8.5-10.1); Chloride 103 mmol/L (98-107); Creatinine, Serum 1.21 mg/dL (0.70-1.30); EST Glomerular Filtration Rate 62 mL/min (>60); Est Glom Filt Rate - Afr Amer 74 mL/min (>60); Estimated Creatinine Clearance 51.11 ml/min; Glucose 98 mg/dL (74-106); Potassium 3.7 mmol/L (3.5-5.1); Sodium Level 136 mmol/L (136-145)
[2020-09-09] MEDS: Tuberculin,Purif.prot.deriv. 50 TU/ML Vial 5 ML ID (10:20)
[2020-09-09 13:24] VITALS: BP 143/78; PULSE 71; RESP 16; TEMP 36.2; O2SAT 96
--- NOTE | 2020-09-09 14:11 | PHA.CONS_ITS ---
<BharatZahra M - Last Filed: 09/09/20 14:11> Progress Note - Pharmacy Subjective: TCU ADMISSION Objective: Allergies No Known Allergies Allergy (Verified 07/24/20 13:05) Current Medications Generic Name Dose Route Start Last Admin Trade Name Freq PRN Reason Stop Dose Admin Acetaminophen 1,000 mg 09/08/20 19:31 09/08/20 22:29 Acetaminophen 500 Mg Tablet PO 1,000 mg Q6H PRN PRN Administration Pain Score 1-5 Aspirin 81 mg 09/10/20 08:00 Aspirin E.C. 81 Mg Tablet PO DAILYCM [facility] Atorvastatin Calcium 20 mg 09/09/20 22:00 09/08/20 23:45 Atorvastatin Calcium 20 Mg Tablet PO 20 mg QHS ANAHI Administration Bisacodyl 10 mg 09/08/20 19:33 Bisacodyl 10 Mg Suppository RECTAL DAILY PRN Constipation Calamine/Phenol 1 applic 09/08/20 18:00 09/09/20 05:22 Menthol/Lanolin/Calamine/Znox 113 Gm Tube TOPICAL 1 applicatio BID ANAHI Administration Protocol Carbidopa/Levodopa 1 tablet 09/08/20 22:00 09/09/20 05:25 Carbidopa/Levodopa 25/100 Tablet PO 1 tablet TID ANAHI Administration Cholecalciferol 2,000 unit 09/09/20 06:00 09/09/20 05:25 Cholecalciferol (Vit D3) 1,000 Unit (25mcg) PO 2,000 unit DAILY ANAHI Administration Enoxaparin Sodium 40 mg 09/09/20 06:00 09/09/20 05:25 Enoxaparin 40 Mg/0.4 Ml Syringe SC 40 mg DAILY@0600 ANAHI Administration Hydrocortisone 20 mg 09/08/20 18:00 09/09/20 05:23 Hydrocortisone 10 Mg Tablet PO 20 mg BID ANAHI Administration Levothyroxine Sodium 100 mcg 09/09/20 06:00 09/09/20 05:25 Levothyroxine 100 Mcg Tablet PO 100 mcg DAILY ANAHI Administration Losartan Potassium 25 mg 09/09/20 06:00 09/09/20 05:23 Losartan Potassium 25 Mg Tablet PO 25 mg DAILY ANAHI Administration Magnesium Hydroxide 30 ml 09/08/20 19:32 Magnesium Hydroxide 30 Ml Udc PO DAILY PRN Constipation Nystatin 1 applic 09/08/20 18:00 09/09/20 05:24 Nystatin Powder 15gm Bottle TOPICAL 1 applicatio BID ANAHI Administration Protocol Oxycodone HCl 5 mg 09/08/20 19:33 Oxycodone 5 Mg Tablet PO Q4H PRN PRN Pain Score 6-10 Polyethylene Glycol 17 gm 09/09/20 06:00 09/09/20 05:25 Polyethylene Glycol 3350 17 Gm Packet PO 17 gm DAILY ANAHI Administration Senna/Docusate Sodium 1 tablet 09/09/20 06:00 09/09/20 05:24 Senna/Docusate Sodium 1 Tablet PO 1 tablet BID ANAHI Administration Tamsulosin HCl 0.8 mg 09/08/20 22:00 09/08/20 22:13 Tamsulosin Hcl 0.4 Mg Capsule PO 0.8 mg QHS ANAHI Administration Trazodone HCl 50 mg 09/08/20 22:00 09/08/20 22:13 Trazodone 50 Mg Tablet PO 50 mg QHS ANAHI Administration Tuberculin PPD 5 tu 09/16/20 10:00 Tuberculin,Purif.Prot.Deriv. 50 Tu/Ml Vial ID 09/16/20 10:01 X1 ONE Problem List (Last Updated 07/24/20 @ 13:17 by Zahra Chacko) Debility (Acute) Low back pain (Acute) Closed burst fracture of lumbar vertebra (Acute) Memory impairment (Chronic) Acute confusion (Acute) Parkinson disease (Chronic) Adrenal insufficiency (Chronic) Intracranial aneurysm (Chronic) Hypothyroidism (Chronic) Benign prostate hyperplasia (Chronic) Lumbar disc disease (Chronic) Coronary artery disease (Chronic) Hypertension (Chronic) Gout (Chronic) Osteoarthritis (Chronic) GERD (gastroesophageal reflux disease) (Chronic) Lumbar spinal stenosis (Chronic) Obstructive sleep apnea (Chronic) Vital Signs Temp Pulse Resp BP Pulse Ox 97.2 F L 71 16 143/78 H 96 09/09/20 13:24 09/09/20 13:24 09/09/20 13:24 09/09/20 13:24 09/09/20 13:24 Oxygen Delivery Method Room Air Weight: 96.2 kg Body Mass Index (BMI) 29.4 Sodium 136 mmol/L (136-145) 09/09/20 06:13 Potassium 3.7 mmol/L (3.5-5.1) 09/09/20 06:13 Chloride 103 mmol/L (98-107) 09/09/20 06:13 Carbon Dioxide 26.0 mmol/L (21.0-32.0) 09/09/20 06:13 Anion Gap 7 (5-15) 09/09/20 06:13 BUN 22 mg/dL (7-18) H 09/09/20 06:13 Creatinine 1.21 mg/dL (0.70-1.30) 09/09/20 06:13 Est GFR (MDRD) Af Amer 74 mL/min (>60) 09/09/20 06:13 Est GFR (MDRD) Non-Af 62 mL/min (>60) 09/09/20 06:13 BUN/Creatinine Ratio 18.2 RATIO (10-20) 09/09/20 06:13 Glucose 98 mg/dL (74-106) 09/09/20 06:13 Assessment/Plan: 1. Pain - Tylenol 1000mg PO Q6H PRN pain (1-5), oxycodone 5mg PO Q4H PRN pain (6-10). Please continue to monitor for increased pain, PRN use, constipation, and sedation. 2. DVT prophylaxis - Lovenox 40mg SC daily. Please continue to monitor for S/S of bleeding/DVT, hemoglobin (last 10.6 g/dL), and platelets (last 249,000). 3. Coronary Artery Disease - losartan 25mg PO daily, aspirin 81mg PO daily with meals. Please continue to monitor S/S of coronary artery disease, S/S of bleeding, BP (last 140/82), and HR (last 62). 4. Hyperlipidemia - atorvastatin 20mg PO QHS. Please continue to monitor LDL (last 99 mg/dL), HDL (last 55 mg/dL), triglycerides (last 172), and muscle pain. *5. Vitamin D deficiency - D3 2000 units PO daily. Please consider ordering vitamin D levels, as last was on 03/20/19. Thanks. 6. Adrenal insufficiency - Cortef 20mg PO BID. Please continue to monitor blood glucose (last 94 on 01/05/20), mood changes, edema, WBC (last 9.0), and BP (last 140/82). *7. Hypothyroidism - levothyroxine 100mcg PO daily. Please consider ordering thyroid levels as clinically appropriate; last were FT3 on 04/20/19 and T4 on 01/16/20. Thanks. 8. Skin irritation and tinea corporis - Calmoseptine topical BID, nystatin powder topical BID. Please continue to monitor. 9. BPH - tamsulosin 0.8mg PO QHS. Please continue to monitor S/S of BPH. 10. Insomnia - trazodone 50mg PO QHS. Please continue to monitor for S/S of insomnia and breathing problems. 11. Parkinson Disease - Sinemet 25/100mg PO TID. Please continue to monitor renal function, hepatic function, behavior changes, and S/S of Parkinson's disease. Unnecessary Medications: None Bowel Regimen: Miralax 17gm PO daily, Senna/Docusate 1 tablet PO BID, MOM 30ml daily PRN constipation, Dulcolax 10mg KS daily PRN constipation. Please continue to lois tor for increased/decreased constipation and/or diarrhea. Date of Note:: 09/09/20 - Provider Comments Provider responsibility: Provider responsible to enter orders to implement recommendations <Kaiser Rios Chi - Last Filed: 09/09/20 16:23> Progress Note - Pharmacy Subjective: [] Objective: Allergies No Known Allergies Allergy (Verified 07/24/20 13:05) Current Medications Generic Name Dose Route Start Last Admin Trade Name Freq PRN Reason Stop Dose Admin Acetaminophen 1,000 mg 09/08/20 19:31 09/08/20 22:29 Acetaminophen 500 Mg Tablet PO 1,000 mg Q6H PRN PRN Administration Pain Score 1-5 Aspirin 81 mg 09/10/20 08:00 [facility]. [facility] At[facility] Calcium 20 mg 09/09/20 22:00 09/08/20 23:45 Atorvastatin Calcium 20 Mg Tablet PO 20 mg QHS ANAHI Administration Bisacodyl 10 mg 09/08/20 19:33 Bisacodyl 10 Mg Suppository RECTAL DAILY PRN Constipation Calamine/Phenol 1 applic 09/08/20 18:00 09/09/20 05:22 Menthol/Lanolin/Calamine/Znox 113 Gm Tube TOPICAL 1 applicatio BID ANAHI Administration Protocol Carbidopa/Levodopa 1 tablet 09/08/20 22:00 09/09/20 15:32 Carbidopa/Levodopa 25/100 Tablet PO 1 tablet TID [facility] Administration Cholecalciferol 2,000 unit 09/09/20 06:00 09/09/20 05:25 Cholecalciferol (Vit D3) 1,000 Unit (25mcg) PO 2,000 unit DAILY [facility] Administration Enoxaparin Sodium 40 mg 09/09/20 06:00 09/09/20 05:25 Enoxaparin 40 Mg/0.4 Ml Syringe SC 40 mg DAILY@0600 ANAHI Administration Hydrocortisone 20 mg 09/08/20 18:00 09/09/20 05:23 Hydrocortisone 10 Mg Tablet PO 20 mg BID ANAHI Administration Levothyroxine Sodium 100 mcg 09/09/20 06:00 09/09/20 05:25 Levothyroxine 100 Mcg Tablet PO 100 mcg DAILY ANAHI Administration Losartan Potassium 25 mg 09/09/20 06:00 09/09/20 05:23 Losartan Potassium 25 Mg Tablet PO 25 mg DAILY ANAHI Administration Magnesium Hydroxide 30 ml 09/08/20 19:32 Magnesium Hydroxide 30 Ml Udc PO DAILY PRN Constipation Nystatin 1 applic 09/08/20 18:00 09/09/20 05:24 Nystatin Powder 15gm Bottle TOPICAL 1 applicatio BID [facility] Administration Protocol Oxycodone HCl 5 mg 09/08/20 19:33 Oxycodone 5 Mg Tablet PO Q4H PRN PRN Pain Score 6-10 Polyethylene Glycol 17 gm 09/09/20 06:00 09/09/20 05:25 Polyethylene Glycol 3350 17 Gm Packet PO 17 gm DAILY [facility] Administration Senna/Docusate Sodium 1 tablet 09/09/20 06:00 09/09/20 05:24 Senna/Docusate Sodium 1 Tablet PO 1 tablet BID ANAHI Administration Tamsulosin HCl 0.8 mg 09/08/20 22:00 09/08/20 22:13 Tamsulosin Hcl 0.4 Mg Capsule PO 0.8 mg QHS [facility] Administration Trazodone HCl 50 mg 09/08/20 22:00 09/08/20 22:13 Trazodone 50 Mg Tablet PO 50 mg QHS [facility] Administration Tuberculin PPD 5 tu 09/16/20 10:00 Tuberculin,Purif.Prot.Deriv. 50 Tu/Ml Vial ID 09/16/20 10:01 X1 ONE Problem List (Last Updated 07/24/20 @ 13:17 by Zahra Chacko) Debility (Acute) Low back pain (Acute) Closed burst fracture of lumbar vertebra (Acute) Memory impairment (Chronic) Acute confusion (Acute) Parkinson disease (Chronic) Adrenal insufficiency (Chronic) Intracranial aneurysm (Chronic) Hypothyroidism (Chronic) Benign prostate hyperplasia (Chronic) Lumbar disc disease (Chronic) Coronary artery disease (Chronic) Hypertension (Chronic) Gout (Chronic) Osteoarthritis (Chronic) GERD (gastroesophageal reflux disease) (Chronic) Lumbar spinal stenosis (Chronic) Obstructive sleep apnea (Chronic) Vital Signs Temp Pulse Resp BP Pulse Ox 97.2 F L 71 16 143/78 H 96 09/09/20 13:24 09/09/20 13:24 09/09/20 13:24 09/09/20 13:24 09/09/20 13:24 Oxygen Delivery Method Room Air Weight: 96.2 kg Body Mass Index (BMI) 29.4 Sodium 136 mmol/L (136-145) 09/09/20 06:13 Potassium 3.7 mmol/L (3.5-5.1) 09/09/20 06:13 Chloride 103 mmol/L (98-107) 09/09/20 06:13 Carbon Dioxide 26.0 mmol/L (21.0-32.0) 09/09/20 06:13 Anion Gap 7 (5-15) 09/09/20 06:13 BUN 22 mg/dL (7-18) H 09/09/20 06:13 Creatinine 1.21 mg/dL (0.70-1.30) 09/09/20 06:13 Est GFR (MDRD) Af Amer 74 mL/min (>60) 09/09/20 06:13 Est GFR (MDRD) Non-Af 62 mL/min (>60) 09/09/20 06:13 BUN/Creatinine Ratio 18.2 RATIO (10-20) 09/09/20 06:13 Glucose 98 mg/dL (74-106) 09/09/20 06:13 Assessment/Plan: Psychotropic Medications: Unnecessary Medications: Bowel Regimen: - Provider Comments Provider responsibility: Provider responsible to enter orders to implement recommendations Provider Comments to Recommendations by Pharmacy: Agree
--- NOTE | 2020-09-09 15:27 | CASEMGMT ---
Social Work Discussed with patient code status. Pt wishes to be full code. Nursing notified. MOLST form reviewed, communication to , placed in chart. Kristyn Choudhury MSW [employer] MECHANIC
[2020-09-09] MEDS: Tamsulosin HCl 0.4 MG Capsule 0.8 MG PO (21:01)
[2020-09-09] MEDS: traZODone 50 MG Tablet PO (21:01)
[2020-09-09] MEDS: Atorvastatin Calcium 20 MG Tablet PO (21:02)
[2020-09-09] MEDS: Acetaminophen 500 MG Tablet 1000 MG PO (21:13)
[2020-09-10 05:00] VITALS: BP 125/68; PULSE 65; RESP 18; TEMP 36.9; O2SAT 96
[2020-09-10] MEDS: Polyethylene Glycol 3350 17 GM PACKET PO (05:46)
[2020-09-10] MEDS: Senna/Docusate Sodium 1 Tablet PO ×2 (05:47→17:53)
[2020-09-10] MEDS: Carbidopa/Levodopa 25/100 Tablet PO ×3 (05:47→20:49)
[2020-09-10] MEDS: Levothyroxine 100 MCG Tablet PO (05:47)
[2020-09-10] MEDS: Losartan Potassium 25 MG Tablet PO (05:48)
[2020-09-10] MEDS: Hydrocortisone 10 MG Tablet 20 MG PO ×2 (05:48→17:53)
[2020-09-10] MEDS: Escitalopram Oxalate 10 MG Tablet PO (05:48)
[2020-09-10] MEDS: Menthol/Lanolin/Calamine/Znox 113 GM Tube 1 APPLIC TOPICAL ×2 (05:49→17:53)
[2020-09-10] MEDS: Enoxaparin 40 MG/0.4 ML Syringe SC (05:50)
[2020-09-10] MEDS: Nystatin Powder 15gm Bottle 1 APPLIC TOPICAL ×2 (05:50→17:54)
[2020-09-10] MEDS: Aspirin E.C. 81 MG Tablet PO (08:21)
[2020-09-10 13:17] VITALS: BP 112/60; PULSE 74; RESP 16; TEMP 35.9; O2SAT 97
[2020-09-10] MEDS: Hydrocortisone 2.5% Crm 1 APPLIC TOPICAL ×2 (17:54→20:48)
[2020-09-10] MEDS: traZODone 50 MG Tablet PO (20:49)
[2020-09-10] MEDS: Tamsulosin HCl 0.4 MG Capsule 0.8 MG PO (20:49)
[2020-09-10] MEDS: Atorvastatin Calcium 20 MG Tablet PO (20:50)
[2020-09-10] MEDS: Acetaminophen 500 MG Tablet 1000 MG PO (20:55)
[2020-09-11 05:30] LABS: Hematocrit 30.1 % (40-54); Hemoglobin 9.6 g/dL (13.0-16.5)
[2020-09-11 05:45] VITALS: BP 136/56; PULSE 60; RESP 16; TEMP 36.8; O2SAT 96
[2020-09-11] MEDS: Losartan Potassium 25 MG Tablet PO (05:47)
[2020-09-11] MEDS: Levothyroxine 100 MCG Tablet PO (05:47)
[2020-09-11] MEDS: Carbidopa/Levodopa 25/100 Tablet PO ×3 (05:47→21:17)
[2020-09-11] MEDS: Senna/Docusate Sodium 1 Tablet PO ×2 (05:47→17:36)
[2020-09-11] MEDS: Hydrocortisone 10 MG Tablet 20 MG PO ×2 (05:47→17:37)
[2020-09-11] MEDS: Escitalopram Oxalate 10 MG Tablet PO (05:47)
[2020-09-11] MEDS: Polyethylene Glycol 3350 17 GM PACKET PO (05:48)
[2020-09-11] MEDS: Menthol/Lanolin/Calamine/Znox 113 GM Tube 1 APPLIC TOPICAL ×2 (05:50→17:31)
[2020-09-11] MEDS: Nystatin Powder 15gm Bottle 1 APPLIC TOPICAL ×2 (05:51→17:31)
[2020-09-11] MEDS: Acetaminophen 500 MG Tablet 1000 MG PO (05:55)
--- NOTE | 2020-09-11 07:31 | PCA ---
PT refusing to put on back brace when out of bed. PT states it cuts into his back and is uncomfortable
[2020-09-11] MEDS: Iron Polysaccharide Complex 150 MG CAPSULE PO (08:11)
[2020-09-11] MEDS: Aspirin E.C. 81 MG Tablet PO (08:11)
--- NOTE | 2020-09-11 09:57 | PCA ---
pt rang out to use the restroom, this aide went back to assist him to the restroom, before walking to restroom i attempted to place back brace on patient, patient refused it saying I am not wearing that! this aide explained the importance of wearing the back brace. pt said i will be careful and continued to refuse it.
--- NOTE | 2020-09-11 11:38 | NURSING ---
Addendum entered by Deana Olmedo 09/11/20 12:45: [place] will be removed at appt on sep 16 Original Note: message left with Dr Lewis regarding staple removal. awaiting return call.
--- NOTE | 2020-09-11 13:47 | NURSING ---
Addendum entered by Deana Olmedo 09/11/20 14:50: spoke with Elle, physician office secretary to dr Malhotra regarding EXOS FORM 637 brace. We do not carry, nor does [facility]. She states they will get him one at his appt on 09/19/20 but for now use the TLSO brace. any issues call ELLE @ [phone] Addendum entered by Deana Olmedo 09/11/20 13:53: gave order to social services coordinator to try to order from [facility]. Original Note: Dr Lewis nurse called stating pt needs a different brace and faxing order for new brace. will give to therapy.
[2020-09-11 14:26] VITALS: BP 176/89; PULSE 61; RESP 18; TEMP 36.3; O2SAT 97
--- NOTE | 2020-09-11 18:25 | PCA ---
PHYSICAL THERAPY NURSE offered HS care and patient stated they would like to wait until morning to get washed up. Patient is a scheduled ADL with therapy in the morning
[2020-09-11] MEDS: traZODone 50 MG Tablet PO (21:17)
[2020-09-11] MEDS: Tamsulosin HCl 0.4 MG Capsule 0.8 MG PO (21:18)
[2020-09-11] MEDS: Atorvastatin Calcium 20 MG Tablet PO (21:19)
[2020-09-12 05:00] VITALS: BP 127/76; PULSE 60; RESP 16; TEMP 36.8; O2SAT 96
[2020-09-12] MEDS: Losartan Potassium 25 MG Tablet PO (05:37)
[2020-09-12] MEDS: Senna/Docusate Sodium 1 Tablet PO ×2 (05:37→16:48)
[2020-09-12] MEDS: Carbidopa/Levodopa 25/100 Tablet PO ×3 (05:37→20:48)
[2020-09-12] MEDS: Levothyroxine 100 MCG Tablet PO (05:37)
[2020-09-12] MEDS: Escitalopram Oxalate 10 MG Tablet PO (05:37)
[2020-09-12] MEDS: Hydrocortisone 10 MG Tablet 20 MG PO ×2 (05:38→16:48)
[2020-09-12] MEDS: Menthol/Lanolin/Calamine/Znox 113 GM Tube 1 APPLIC TOPICAL ×2 (05:41→16:48)
[2020-09-12] MEDS: Acetaminophen 500 MG Tablet 1000 MG PO (08:07)
[2020-09-12] MEDS: Iron Polysaccharide Complex 150 MG CAPSULE PO (08:08)
[2020-09-12] MEDS: Aspirin E.C. 81 MG Tablet PO (08:11)
[2020-09-12 12:37] VITALS: BP 104/59; PULSE 66; RESP 18; TEMP 36.1; O2SAT 96
[2020-09-12] MEDS: Nystatin Powder 15gm Bottle 1 APPLIC TOPICAL (16:48)
[2020-09-12] MEDS: Tamsulosin HCl 0.4 MG Capsule 0.8 MG PO (20:49)
[2020-09-12] MEDS: traZODone 50 MG Tablet PO (20:49)
[2020-09-12] MEDS: Atorvastatin Calcium 20 MG Tablet PO (20:50)
[2020-09-13 05:00] VITALS: BP 129/64; PULSE 56; RESP 18; TEMP 36.6; O2SAT 94
[2020-09-13] MEDS: Escitalopram Oxalate 10 MG Tablet PO (06:09)
[2020-09-13] MEDS: Levothyroxine 100 MCG Tablet PO (06:09)
[2020-09-13] MEDS: Losartan Potassium 25 MG Tablet PO (06:09)
[2020-09-13] MEDS: Hydrocortisone 10 MG Tablet 20 MG PO ×2 (06:09→17:02)
[2020-09-13] MEDS: Carbidopa/Levodopa 25/100 Tablet PO ×3 (06:10→21:17)
[2020-09-13] MEDS: Nystatin Powder 15gm Bottle 1 APPLIC TOPICAL ×2 (06:12→17:04)
[2020-09-13] MEDS: Menthol/Lanolin/Calamine/Znox 113 GM Tube 1 APPLIC TOPICAL ×2 (06:12→17:04)
[2020-09-13 06:22] LABS: Hematocrit 32.3 % (40-54); Hemoglobin 10.3 g/dL (13.0-16.5)
[2020-09-13] MEDS: Iron Polysaccharide Complex 150 MG CAPSULE PO (08:30)
[2020-09-13] MEDS: Aspirin E.C. 81 MG Tablet PO (08:30)
[2020-09-13] MEDS: Acetaminophen 500 MG Tablet 1000 MG PO ×2 (13:40→21:21)
[2020-09-13 13:59] VITALS: BP 116/62; PULSE 68; RESP 16; TEMP 36.2; O2SAT 95
[2020-09-13] MEDS: Senna/Docusate Sodium 1 Tablet PO (17:03)
[2020-09-13] MEDS: Tamsulosin HCl 0.4 MG Capsule 0.8 MG PO (21:17)
[2020-09-13] MEDS: Hydrocortisone 2.5% Crm 1 APPLIC TOPICAL (21:17)
[2020-09-13] MEDS: Atorvastatin Calcium 20 MG Tablet PO (21:18)
[2020-09-13] MEDS: traZODone 50 MG Tablet PO (21:18)
[2020-09-14 05:24] VITALS: BP 136/73; PULSE 58; RESP 16; TEMP 35.9; O2SAT 95
[2020-09-14] MEDS: Acetaminophen 500 MG Tablet 1000 MG PO (05:26)
[2020-09-14] MEDS: Polyethylene Glycol 3350 17 GM PACKET PO (05:26)
[2020-09-14] MEDS: Carbidopa/Levodopa 25/100 Tablet PO ×3 (05:28→20:53)
[2020-09-14] MEDS: Hydrocortisone 10 MG Tablet 20 MG PO ×2 (05:28→17:03)
[2020-09-14] MEDS: Losartan Potassium 25 MG Tablet PO (05:28)
[2020-09-14] MEDS: Escitalopram Oxalate 10 MG Tablet PO (05:28)
[2020-09-14] MEDS: Levothyroxine 100 MCG Tablet PO (05:28)
[2020-09-14] MEDS: Senna/Docusate Sodium 1 Tablet PO (05:28)
[2020-09-14] MEDS: Nystatin Powder 15gm Bottle 1 APPLIC TOPICAL ×2 (05:31→17:04)
[2020-09-14] MEDS: Menthol/Lanolin/Calamine/Znox 113 GM Tube 1 APPLIC TOPICAL ×2 (05:32→17:04)
[2020-09-14] MEDS: Aspirin E.C. 81 MG Tablet PO (08:06)
[2020-09-14] MEDS: Iron Polysaccharide Complex 150 MG CAPSULE PO (08:07)
[2020-09-14 08:34] VITALS: PULSE 74; RESP 16; O2SAT 96
[2020-09-14] MEDS: oxyCODONE 5 MG Tablet PO (11:17)
[2020-09-14 14:01] VITALS: BP 93/53; PULSE 96; RESP 16; TEMP 36.3; O2SAT 97
[2020-09-14] MEDS: Tamsulosin HCl 0.4 MG Capsule 0.8 MG PO (20:52)
[2020-09-14] MEDS: Atorvastatin Calcium 20 MG Tablet PO (20:52)
[2020-09-14] MEDS: traZODone 50 MG Tablet PO (20:53)
[2020-09-15 02:36] VITALS: BP 116/60; PULSE 67; RESP 16; TEMP 36.6; O2SAT 94
[2020-09-15] MEDS: Polyethylene Glycol 3350 17 GM PACKET PO (05:43)
[2020-09-15] MEDS: Senna/Docusate Sodium 1 Tablet PO ×2 (05:43→17:05)
[2020-09-15] MEDS: Hydrocortisone 10 MG Tablet 20 MG PO ×2 (05:44→17:05)
[2020-09-15] MEDS: Carbidopa/Levodopa 25/100 Tablet PO ×3 (05:44→21:41)
[2020-09-15] MEDS: Losartan Potassium 25 MG Tablet PO (05:44)
[2020-09-15] MEDS: Levothyroxine 100 MCG Tablet PO (05:44)
[2020-09-15] MEDS: Escitalopram Oxalate 10 MG Tablet PO (05:44)
[2020-09-15] MEDS: Menthol/Lanolin/Calamine/Znox 113 GM Tube 1 APPLIC TOPICAL ×2 (05:45→17:05)
[2020-09-15] MEDS: Nystatin Powder 15gm Bottle 1 APPLIC TOPICAL ×2 (05:46→17:06)
[2020-09-15] MEDS: Iron Polysaccharide Complex 150 MG CAPSULE PO (09:12)
[2020-09-15] MEDS: Aspirin E.C. 81 MG Tablet PO (09:12)
[2020-09-15] MEDS: Acetaminophen 500 MG Tablet 1000 MG PO ×2 (09:14→21:44)
[2020-09-15 10:00] VITALS: PULSE 60
[2020-09-15 14:53] VITALS: BP 142/77; PULSE 70; RESP 18; TEMP 36.6; O2SAT 95
[2020-09-15] MEDS: Tamsulosin HCl 0.4 MG Capsule 0.8 MG PO (21:41)
[2020-09-15] MEDS: Atorvastatin Calcium 20 MG Tablet PO (21:41)
[2020-09-15] MEDS: traZODone 50 MG Tablet PO (21:41)
[2020-09-16 05:00] VITALS: BP 133/64; PULSE 57; RESP 16; TEMP 36.2; O2SAT 97
[2020-09-16] MEDS: Acetaminophen 500 MG Tablet 1000 MG PO (06:15)
[2020-09-16] MEDS: Escitalopram Oxalate 10 MG Tablet PO (06:16)
[2020-09-16] MEDS: Losartan Potassium 25 MG Tablet PO (06:16)
[2020-09-16] MEDS: Levothyroxine 100 MCG Tablet PO (06:17)
[2020-09-16] MEDS: Menthol/Lanolin/Calamine/Znox 113 GM Tube 1 APPLIC TOPICAL ×2 (06:17→17:21)
[2020-09-16] MEDS: Hydrocortisone 10 MG Tablet 20 MG PO ×2 (06:18→17:20)
[2020-09-16] MEDS: Nystatin Powder 15gm Bottle 1 APPLIC TOPICAL ×2 (06:18→17:20)
[2020-09-16 06:20] LABS: Absolute Lymphocyte Count 2.29 X10^3/uL (0.83-4.51); Absolute Neutrophil Count 6.1 X10^3/uL (2.0-7.7); Basophil# 0.09 X10^3/uL; Basophil% 0.9 % (0-1); Eosinophil# 0.52 X10^3/uL; Eosinophils% 5.4 % (0-5); Hematocrit 33.5 % (40-54); Lymphocyte # 2.29 X10^3/ul (4.0); Lymphocyte % 23.9 % (19-41); Mean Corp Hgb Conc 32.8 g/dL (32-36); Mean Corpuscular Hgb 32.5 pg (27.0-32.0); Mean Corpuscular Volume 99.1 fL (80-94); Mean Platelet Vol. 8.8 fl (6.2-12.0); Monocyte# 0.45 X10^3/uL; Monocyte% 4.7 % (0-10); NRBC Flagged by Analyzer 0 % (0-5); Neutrophil # 6.05 X10^3/uL (2.7-7.7); Platelet Count 307 K/mm3 (150-450); RBC Distribution Width CV 13.1 % (11.6-14.6); RBC Distribution Width SD 46.4 fl (35.1-43.9); Red Blood Count 3.38 M/mm3 (4.6-6.2); White Blood Count 9.6 K/mm3 (4.4-11.0)
[2020-09-16] MEDS: Senna/Docusate Sodium 1 Tablet PO ×2 (06:20→17:20)
[2020-09-16] MEDS: Carbidopa/Levodopa 25/100 Tablet PO ×3 (06:20→21:52)
[2020-09-16 06:49] LABS: Anion Gap 6 (5-15); BUN 23 mg/dL (7-18); BUN/Creat Ratio 21.3 RATIO (10-20); Calcium,Total 8.7 mg/dL (8.5-10.1); Chloride 103 mmol/L (98-107); Creatinine, Serum 1.08 mg/dL (0.70-1.30); EST Glomerular Filtration Rate 70 mL/min (>60); Est Glom Filt Rate - Afr Amer 85 mL/min (>60); Estimated Creatinine Clearance 57.27 ml/min; Glucose 90 mg/dL (74-106); Potassium 4.1 mmol/L (3.5-5.1); Sodium Level 138 mmol/L (136-145)
[2020-09-16] MEDS: Iron Polysaccharide Complex 150 MG CAPSULE PO (08:49)
[2020-09-16] MEDS: Aspirin E.C. 81 MG Tablet PO (08:49)
[2020-09-16 10:00] VITALS: O2SAT 93
[2020-09-16 13:04] VITALS: BP 140/68; PULSE 75; RESP 17; TEMP 36.2; O2SAT 96
--- NOTE | 2020-09-16 13:10 | NURSING ---
Physical therapy reported to nurse pt was walking on step and hit his left wrist on railing. He sustained a skin tear to l wrist. Mepilex applied to l wrist.
[2020-09-16] MEDS: Tuberculin,Purif.prot.deriv. 50 TU/ML Vial 5 ML ID (13:56)
[2020-09-16] MEDS: Tamsulosin HCl 0.4 MG Capsule 0.8 MG PO (21:52)
[2020-09-16] MEDS: Atorvastatin Calcium 20 MG Tablet PO (21:52)
[2020-09-16] MEDS: traZODone 50 MG Tablet PO (21:52)
[2020-09-17 05:35] VITALS: BP 122/72; PULSE 52; RESP 17; TEMP 36.6; O2SAT 92
[2020-09-17] MEDS: Menthol/Lanolin/Calamine/Znox 113 GM Tube 1 APPLIC TOPICAL ×2 (06:19→17:24)
[2020-09-17] MEDS: Carbidopa/Levodopa 25/100 Tablet PO ×3 (06:20→19:29)
[2020-09-17] MEDS: Escitalopram Oxalate 10 MG Tablet PO (06:20)
[2020-09-17] MEDS: Levothyroxine 100 MCG Tablet PO (06:20)
[2020-09-17] MEDS: Senna/Docusate Sodium 1 Tablet PO ×2 (06:20→17:23)
[2020-09-17] MEDS: Losartan Potassium 25 MG Tablet PO (06:20)
[2020-09-17] MEDS: Hydrocortisone 10 MG Tablet 20 MG PO ×2 (06:20→17:23)
[2020-09-17] MEDS: Polyethylene Glycol 3350 17 GM PACKET PO (06:21)
[2020-09-17] MEDS: Nystatin Powder 15gm Bottle 1 APPLIC TOPICAL ×2 (06:21→17:24)
[2020-09-17] MEDS: Acetaminophen 500 MG Tablet 1000 MG PO ×2 (06:29→19:28)
[2020-09-17] MEDS: Iron Polysaccharide Complex 150 MG CAPSULE PO (08:46)
[2020-09-17] MEDS: Aspirin E.C. 81 MG Tablet PO (08:46)
[2020-09-17 10:00] VITALS: PULSE 61; RESP 16; O2SAT 97
--- NOTE | 2020-09-17 11:44 | CASEMGMT ---
Social Work IDT met with patient and via conference call for care plan meeting. Discussed patient's progress in therapy and nursing. Pt has to wear back brace when OOB, which inhibits his ability to be independent with ADLs and mobility. Pt attempted box step and legs buckled. Pt has 3 steps to enter the home. Recommending a ramp. Emailed ramp resources to . Pt has f/u appt 09/24. Encouraging pt to stay up in chair longer and complete exercises on his on in his room. Explained [facility] insurance with [employer] 09/18 and continued stay is not guaranteed. The goal is to return home with . understandable pt has a slower recovery and will need some assistance at [place]. Will continue to follow. ESTELITA BakerW
[2020-09-17 13:49] VITALS: BP 107/59; PULSE 60; RESP 15; TEMP 36.8; O2SAT 97
[2020-09-17] MEDS: Tamsulosin HCl 0.4 MG Capsule 0.8 MG PO (19:28)
[2020-09-17] MEDS: traZODone 50 MG Tablet PO (19:29)
[2020-09-17] MEDS: Atorvastatin Calcium 20 MG Tablet PO (19:29)
[2020-09-18 06:40] VITALS: BP 129/76; PULSE 56; RESP 16; TEMP 36.6; O2SAT 96
[2020-09-18] MEDS: Carbidopa/Levodopa 25/100 Tablet PO ×3 (06:43→20:43)
[2020-09-18] MEDS: Nystatin Powder 15gm Bottle 1 APPLIC TOPICAL ×2 (06:43→18:17)
[2020-09-18] MEDS: Escitalopram Oxalate 10 MG Tablet PO (06:43)
[2020-09-18] MEDS: Hydrocortisone 10 MG Tablet 20 MG PO ×2 (06:43→18:17)
[2020-09-18] MEDS: Senna/Docusate Sodium 1 Tablet PO ×2 (06:43→18:17)
[2020-09-18] MEDS: Levothyroxine 100 MCG Tablet PO (06:43)
[2020-09-18] MEDS: Losartan Potassium 25 MG Tablet PO (06:43)
[2020-09-18] MEDS: Menthol/Lanolin/Calamine/Znox 113 GM Tube 1 APPLIC TOPICAL ×2 (06:44→18:17)
[2020-09-18] MEDS: Iron Polysaccharide Complex 150 MG CAPSULE PO (08:49)
[2020-09-18] MEDS: Aspirin E.C. 81 MG Tablet PO (08:49)
[2020-09-18] MEDS: Acetaminophen 500 MG Tablet 1000 MG PO ×2 (08:52→16:38)
[2020-09-18 14:11] VITALS: BP 98/59; PULSE 63; RESP 17; TEMP 36.8; O2SAT 96
[2020-09-18 14:29] VITALS: PULSE 66; RESP 16; O2SAT 95
[2020-09-18] MEDS: traZODone 50 MG Tablet PO (20:43)
[2020-09-18] MEDS: Tamsulosin HCl 0.4 MG Capsule 0.8 MG PO (20:43)
[2020-09-18] MEDS: Atorvastatin Calcium 20 MG Tablet PO (20:44)
[2020-09-19 05:29] VITALS: BP 112/58; PULSE 54; RESP 16; TEMP 36.6; O2SAT 95
[2020-09-19] MEDS: Escitalopram Oxalate 10 MG Tablet PO (05:30)
[2020-09-19] MEDS: Losartan Potassium 25 MG Tablet PO (05:30)
[2020-09-19] MEDS: Hydrocortisone 10 MG Tablet 20 MG PO ×2 (05:30→17:33)
[2020-09-19] MEDS: Carbidopa/Levodopa 25/100 Tablet PO ×3 (05:31→20:47)
[2020-09-19] MEDS: Levothyroxine 100 MCG Tablet PO (05:31)
[2020-09-19] MEDS: Senna/Docusate Sodium 1 Tablet PO ×2 (05:31→17:33)
[2020-09-19] MEDS: Menthol/Lanolin/Calamine/Znox 113 GM Tube 1 APPLIC TOPICAL ×3 (05:33→20:42)
[2020-09-19] MEDS: Nystatin Powder 15gm Bottle 1 APPLIC TOPICAL ×2 (05:34→20:48)
--- NOTE | 2020-09-19 10:33 | MDS.RN ---
Information for the mds was obtained from review of the clinical record, interview of resident, staff, and direct observation of resident's care.
--- NOTE | 2020-09-19 10:38 | NURSING ---
pt off unit early approx 0800 to surgeon appt.
[2020-09-19 13:58] VITALS: PULSE 66; RESP 18; O2SAT 99
[2020-09-19] MEDS: Iron Polysaccharide Complex 150 MG CAPSULE PO (14:06)
--- NOTE | 2020-09-19 14:08 | NURSING ---
pt back from appt, back incision ALANIS, lashae were removed by Dr Malhotra. lots of dried blood/scabbing down incision. pt in black back brace.
[2020-09-19 16:00] VITALS: BP 110/61; PULSE 69; RESP 16; TEMP 36.3; O2SAT 96
[2020-09-19] MEDS: traZODone 50 MG Tablet PO (20:41)
[2020-09-19] MEDS: Atorvastatin Calcium 20 MG Tablet PO (20:41)
[2020-09-19] MEDS: Tamsulosin HCl 0.4 MG Capsule 0.8 MG PO (20:41)
--- NOTE | 2020-09-20 02:23 | NURSING ---
pt c/o nurse bleed but stopped at this time
[2020-09-20 02:24] VITALS: BP 129/52; PULSE 54; RESP 18; TEMP 36.7; O2SAT 98
[2020-09-20] MEDS: Carbidopa/Levodopa 25/100 Tablet PO ×3 (05:26→20:05)
[2020-09-20] MEDS: Losartan Potassium 25 MG Tablet PO (05:27)
[2020-09-20] MEDS: Senna/Docusate Sodium 1 Tablet PO ×2 (05:27→18:29)
[2020-09-20] MEDS: Hydrocortisone 10 MG Tablet 20 MG PO ×2 (05:27→18:28)
[2020-09-20] MEDS: Levothyroxine 100 MCG Tablet PO (05:27)
[2020-09-20] MEDS: Escitalopram Oxalate 10 MG Tablet PO (05:27)
[2020-09-20] MEDS: Nystatin Powder 15gm Bottle 1 APPLIC TOPICAL ×2 (05:28→20:07)
[2020-09-20] MEDS: Iron Polysaccharide Complex 150 MG CAPSULE PO (09:11)
[2020-09-20] MEDS: Acetaminophen 500 MG Tablet 1000 MG PO ×2 (09:11→18:33)
[2020-09-20 14:39] VITALS: BP 114/60; PULSE 65; RESP 20; TEMP 36.3; O2SAT 97
[2020-09-20] MEDS: Atorvastatin Calcium 20 MG Tablet PO (20:06)
[2020-09-20] MEDS: Tamsulosin HCl 0.4 MG Capsule 0.8 MG PO (20:06)
[2020-09-20] MEDS: traZODone 50 MG Tablet PO (20:07)
[2020-09-20] MEDS: Menthol/Lanolin/Calamine/Znox 113 GM Tube 1 APPLIC TOPICAL (20:09)
--- NOTE | 2020-09-20 21:08 | PCA ---
BRIDGE GANG WORKER patient offered HS care and patient stated that they would like to wash in the morning.
[2020-09-21 05:26] VITALS: BP 131/69; PULSE 52; RESP 16; TEMP 36.3; O2SAT 97
[2020-09-21] MEDS: Carbidopa/Levodopa 25/100 Tablet PO ×3 (05:27→19:48)
[2020-09-21] MEDS: Escitalopram Oxalate 10 MG Tablet PO (05:27)
[2020-09-21] MEDS: Levothyroxine 100 MCG Tablet PO (05:27)
[2020-09-21] MEDS: Senna/Docusate Sodium 1 Tablet PO ×2 (05:27→16:46)
[2020-09-21] MEDS: Hydrocortisone 10 MG Tablet 20 MG PO ×2 (05:27→16:46)
[2020-09-21] MEDS: Losartan Potassium 25 MG Tablet PO (05:27)
[2020-09-21] MEDS: Nystatin Powder 15gm Bottle 1 APPLIC TOPICAL ×2 (05:28→19:51)
[2020-09-21] MEDS: Menthol/Lanolin/Calamine/Znox 113 GM Tube 1 APPLIC TOPICAL ×2 (05:38→19:50)
[2020-09-21] MEDS: Acetaminophen 500 MG Tablet 1000 MG PO ×2 (06:21→19:48)
[2020-09-21] MEDS: Sodium Chloride 0.65% 1 SPRAY SPRAY.BTL NASAL ×2 (08:29→19:50)
[2020-09-21] MEDS: Aspirin E.C. 81 MG Tablet PO (08:30)
[2020-09-21] MEDS: Iron Polysaccharide Complex 150 MG CAPSULE PO (08:30)
[2020-09-21 14:47] VITALS: BP 115/62; PULSE 67; RESP 18; TEMP 36.4; O2SAT 96
[2020-09-21] MEDS: traZODone 50 MG Tablet PO (19:48)
[2020-09-21] MEDS: Atorvastatin Calcium 20 MG Tablet PO (19:48)
[2020-09-21] MEDS: Tamsulosin HCl 0.4 MG Capsule 0.8 MG PO (19:48)
[2020-09-22 05:00] VITALS: BP 136/75; PULSE 52; RESP 16; TEMP 36.6; O2SAT 96
[2020-09-22] MEDS: Senna/Docusate Sodium 1 Tablet PO ×2 (05:12→17:09)
[2020-09-22] MEDS: Levothyroxine 100 MCG Tablet PO (05:12)
[2020-09-22] MEDS: Hydrocortisone 10 MG Tablet 20 MG PO ×2 (05:12→17:08)
[2020-09-22] MEDS: Escitalopram Oxalate 10 MG Tablet PO (05:12)
[2020-09-22] MEDS: Losartan Potassium 25 MG Tablet PO (05:12)
[2020-09-22] MEDS: Carbidopa/Levodopa 25/100 Tablet PO ×3 (05:12→21:17)
[2020-09-22] MEDS: Nystatin Powder 15gm Bottle 1 APPLIC TOPICAL ×2 (05:13→21:17)
[2020-09-22] MEDS: Menthol/Lanolin/Calamine/Znox 113 GM Tube 1 APPLIC TOPICAL ×2 (05:14→21:17)
[2020-09-22] MEDS: Acetaminophen 500 MG Tablet 1000 MG PO (05:19)
[2020-09-22] MEDS: Iron Polysaccharide Complex 150 MG CAPSULE PO (08:17)
[2020-09-22] MEDS: Aspirin E.C. 81 MG Tablet PO (08:17)
[2020-09-22 13:48] VITALS: BP 114/62; PULSE 63; RESP 16; TEMP 36.1; O2SAT 95
[2020-09-22] MEDS: Atorvastatin Calcium 20 MG Tablet PO (21:16)
[2020-09-22] MEDS: Tamsulosin HCl 0.4 MG Capsule 0.8 MG PO (21:16)
[2020-09-22] MEDS: traZODone 50 MG Tablet PO (21:16)
[2020-09-23 05:33] LABS: Absolute Lymphocyte Count 1.81 X10^3/uL (0.83-4.51); Absolute Neutrophil Count 4.3 X10^3/uL (2.0-7.7); Basophil# 0.08 X10^3/uL; Basophil% 1.1 % (0-1); Eosinophil# 0.39 X10^3/uL; Eosinophils% 5.5 % (0-5); Hematocrit 31.7 % (40-54); Lymphocyte # 1.81 X10^3/ul (4.0); Lymphocyte % 25.4 % (19-41); Mean Corp Hgb Conc 31.5 g/dL (32-36); Mean Corpuscular Hgb 31.3 pg (27.0-32.0); Mean Corpuscular Volume 99.1 fL (80-94); Mean Platelet Vol. 8.5 fl (6.2-12.0); Monocyte# 0.52 X10^3/uL; Monocyte% 7.3 % (0-10); NRBC Flagged by Analyzer 0 % (0-5); Neutrophil # 4.25 X10^3/uL (2.7-7.7); Neutrophil % 59.4 % (47-70); Platelet Count 233 K/mm3 (150-450); RBC Distribution Width CV 13.2 % (11.6-14.6); RBC Distribution Width SD 47.8 fl (35.1-43.9); White Blood Count 7.1 K/mm3 (4.4-11.0)
[2020-09-23 05:35] VITALS: BP 144/78; PULSE 54; RESP 18; TEMP 36.6; O2SAT 97
[2020-09-23] MEDS: Escitalopram Oxalate 10 MG Tablet PO (05:37)
[2020-09-23] MEDS: Losartan Potassium 25 MG Tablet PO (05:37)
[2020-09-23] MEDS: Hydrocortisone 10 MG Tablet 20 MG PO ×2 (05:37→17:47)
[2020-09-23] MEDS: Levothyroxine 100 MCG Tablet PO (05:37)
[2020-09-23] MEDS: Carbidopa/Levodopa 25/100 Tablet PO ×3 (05:37→21:35)
[2020-09-23] MEDS: Menthol/Lanolin/Calamine/Znox 113 GM Tube 1 APPLIC TOPICAL ×2 (05:38→21:34)
[2020-09-23] MEDS: Nystatin Powder 15gm Bottle 1 APPLIC TOPICAL ×2 (05:39→21:35)
[2020-09-23 05:50] LABS: Anion Gap 4 (5-15); BUN 17 mg/dL (7-18); Calcium,Total 8.6 mg/dL (8.5-10.1); Chloride 103 mmol/L (98-107); Creatinine, Serum 1.13 mg/dL (0.70-1.30); EST Glomerular Filtration Rate 67 mL/min (>60); Est Glom Filt Rate - Afr Amer 81 mL/min (>60); Estimated Creatinine Clearance 54.73 ml/min; Glucose 107 mg/dL (74-106); Potassium 4.1 mmol/L (3.5-5.1); Sodium Level 138 mmol/L (136-145)
[2020-09-23] MEDS: Iron Polysaccharide Complex 150 MG CAPSULE PO (08:43)
[2020-09-23] MEDS: Aspirin E.C. 81 MG Tablet PO (08:43)
[2020-09-23 11:15] VITALS: PULSE 76
[2020-09-23 15:31] VITALS: BP 115/52; PULSE 72; RESP 20; TEMP 36.5; O2SAT 97
[2020-09-23] MEDS: Senna/Docusate Sodium 1 Tablet PO (17:47)
[2020-09-23] MEDS: Acetaminophen 500 MG Tablet 1000 MG PO (19:25)
[2020-09-23] MEDS: Tamsulosin HCl 0.4 MG Capsule 0.8 MG PO (21:33)
[2020-09-23] MEDS: traZODone 50 MG Tablet PO (21:33)
[2020-09-23] MEDS: Atorvastatin Calcium 20 MG Tablet PO (21:33)
[2020-09-24] MEDS: Hydrocortisone 10 MG Tablet 20 MG PO ×2 (05:30→17:01)
[2020-09-24] MEDS: Senna/Docusate Sodium 1 Tablet PO ×2 (05:30→17:02)
[2020-09-24] MEDS: Escitalopram Oxalate 10 MG Tablet PO (05:30)
[2020-09-24] MEDS: Losartan Potassium 25 MG Tablet PO (05:30)
[2020-09-24] MEDS: Levothyroxine 100 MCG Tablet PO (05:31)
[2020-09-24] MEDS: Menthol/Lanolin/Calamine/Znox 113 GM Tube 1 APPLIC TOPICAL ×2 (05:31→19:40)
[2020-09-24] MEDS: Nystatin Powder 15gm Bottle 1 APPLIC TOPICAL ×2 (05:31→19:40)
[2020-09-24] MEDS: Carbidopa/Levodopa 25/100 Tablet PO ×3 (05:34→19:40)
[2020-09-24 05:41] VITALS: BP 120/64; PULSE 58; RESP 16; TEMP 36.2; O2SAT 97
[2020-09-24] MEDS: Aspirin E.C. 81 MG Tablet PO (08:35)
[2020-09-24] MEDS: Iron Polysaccharide Complex 150 MG CAPSULE PO (08:35)
[2020-09-24 13:51] VITALS: BP 100/51; PULSE 61; RESP 15; TEMP 36.5; O2SAT 94
--- NOTE | 2020-09-24 15:07 | NURSING ---
Assisted patient back to bed x1 using FWW. Assisted w/ placement of legs into bed and positioned for comfort. Call light w/ in reach.
--- NOTE | 2020-09-24 15:54 | NURSING ---
Patient repositioned in bed to rt side for comfort. Pillow placed behind back. Call light w/ in reach.
[2020-09-24] MEDS: Acetaminophen 500 MG Tablet 1000 MG PO (19:39)
[2020-09-24] MEDS: traZODone 50 MG Tablet PO (19:41)
[2020-09-24] MEDS: Tamsulosin HCl 0.4 MG Capsule 0.8 MG PO (19:41)
[2020-09-24] MEDS: Atorvastatin Calcium 20 MG Tablet PO (19:41)
[2020-09-25] MEDS: Acetaminophen 500 MG Tablet 1000 MG PO ×3 (05:56→20:57)
[2020-09-25] MEDS: Hydrocortisone 10 MG Tablet 20 MG PO ×2 (05:56→17:48)
[2020-09-25] MEDS: Carbidopa/Levodopa 25/100 Tablet PO ×3 (05:56→20:27)
[2020-09-25] MEDS: Levothyroxine 100 MCG Tablet PO (05:56)
[2020-09-25] MEDS: Escitalopram Oxalate 10 MG Tablet PO (05:56)
[2020-09-25] MEDS: Senna/Docusate Sodium 1 Tablet PO ×2 (05:56→17:48)
[2020-09-25] MEDS: Nystatin Powder 15gm Bottle 1 APPLIC TOPICAL ×2 (05:57→20:27)
[2020-09-25] MEDS: Losartan Potassium 25 MG Tablet PO (05:57)
[2020-09-25] MEDS: Menthol/Lanolin/Calamine/Znox 113 GM Tube 1 APPLIC TOPICAL ×2 (05:57→20:27)
[2020-09-25 06:03] VITALS: BP 117/58; PULSE 61; RESP 18; TEMP 36.6; O2SAT 96
[2020-09-25] MEDS: Iron Polysaccharide Complex 150 MG CAPSULE PO (08:06)
[2020-09-25] MEDS: Aspirin E.C. 81 MG Tablet PO (08:06)
[2020-09-25 11:20] VITALS: BP 108/57; PULSE 64; RESP 16; TEMP 36.4; O2SAT 97
[2020-09-25 14:23] VITALS: PULSE 96
--- NOTE | 2020-09-25 15:46 | CASEMGMT ---
Addendum entered by Kristyn Choudhury 09/25/20 16:01: contacted SW and pt used [facility]. Referral made. Original Note: Social Work Spoke with pt about insurance issuing LCD 09/30, DC 10/01. Pt agreeable and agreeable to [facility]. Pt requested SW contact to discuss needs. Spoke with - agreeable to DC. Therapy recommending w/c - pt does not have one. Referral made to [facility]. Inquired about preference for [facility]. stated he used one prior that he liked but has to look at the name of the agency and will contact SW. Will order PT/OT. Left message with rep at [facility] to get bone stimulator ordered per ortho . request. Plan: DC home with , [facility] PT/OT, w/c Kristyn Choudhury, JET WORKER DIELECTRIC EMBOSSING MACHINE OPERATOR
--- NOTE | 2020-09-25 19:04 | DCINST_ITS ---
- Discharge Diagnoses Current Active Problems: Current Active and Chronic Problems (Last Updated 07/24/20 @ 13:17 by Zahra Chacko) Debility (Acute) Low back pain (Acute) Closed burst fracture of lumbar vertebra (Acute) Memory impairment (Chronic) Acute confusion (Acute) Parkinson disease (Chronic) Adrenal insufficiency (Chronic) Intracranial aneurysm (Chronic) Hypothyroidism (Chronic) Benign prostate hyperplasia (Chronic) Lumbar disc disease (Chronic) Coronary artery disease (Chronic) Hypertension (Chronic) Gout (Chronic) Osteoarthritis (Chronic) GERD (gastroesophageal reflux disease) (Chronic) Lumbar spinal stenosis (Chronic) Obstructive sleep apnea (Chronic) You will use the following diet at home:: No restrictions, Regular Your food should be the consistency of: Regular Your liquids should be the consistency of: Regular/Thin Discharge Activity: Return to Normal Activity, May Shower, Use Walker Weight Bearing Status: Weight bearing as tolerated Call your doctor if you observe: Fever of 101 or Higher, Inability to urinate, Inability to have a bowel movement, Shortness of breath, Chest pain, Uncontrolled pain Allergies/Adverse Reactions: Allergies No Known Allergies Allergy (Verified 07/24/20 13:05) Medications to take at Discharge Escitalopram Oxalate 10 mg PO DAILY 10/24/19 Losartan Potassium [Cozaar] 25 mg PO DAILY 10/24/19 Atorvastatin Calcium [Lipitor] 20 mg PO DAILY 12/25/19 Aspirin [Aspir 81] 81 mg PO DAILY 01/16/20 Tamsulosin HCl [Flomax] 0.8 mg PO QHS 01/16/20 traZODone [Desyrel] 50 mg PO QHS 01/16/20 carbidopa 25 mg-levodopa 100 mg tablet 1 tab PO TID tab 07/24/20 Cholecalciferol (Vitamin D3) [Vitamin D3] 2,000 unit PO DAILY 09/08/20 Hydrocortisone [Cortef] 20 mg PO BID 09/08/20 Levothyroxine Sodium [Synthroid] 100 mcg PO DAILY 09/08/20 Acetaminophen [Tylenol] 1,000 mg PO Q6H PRN PRN tab 09/25/20 Emollient Combination No.72 [Eucerin Intensive Repair] 1 applic TOPICAL DAILY@1800 lotion 09/25/20 Escitalopram Oxalate [Lexapro] 10 mg PO DAILY tab 09/25/20 Iron Polysaccharide Complex [Ferrex 150] 150 mg PO DAILYCM #30 cap 09/25/20 Menthol/Lanolin/Calamine/Znox [Calmoseptine Ointment] 1 applic TOPICAL 0600,2200 tube 09/25/20 Nystatin Powder [Mycostatin Powder] 1 applic TOPICAL 0600,2200 bottle 09/25/20 The following prescriptions were given: Iron Polysaccharide Complex [Ferrex 150] 150 mg PO DAILYCM #30 cap Transmission Status: Pending to [facility]/pharmacy #[id number] Primary Care Physician: Gianluca Trevino MD [Primary Care Provider] - Please follow up with your Primary Care Physician in: 1 week. Test Results: Test results from this visit will be discussed in further detail at your follow- up appointment, if applicable. Please Follow Up With: Davey Malhotra MD When: 2 weeks. Proposed Discharge Date: 10/01/20
--- NOTE | 2020-09-25 19:06 | PCM.DC.SUM ---
Discharge Date and Diagnosis - Problem List Patient Problems: Active and Suspected Problems (Last Updated 07/24/20 @ 13:17 by Zahra Chacko) Debility (Acute) Low back pain (Acute) Closed burst fracture of lumbar vertebra (Acute) Acute confusion (Acute) Date of Admission: 09/08/20 Date of Discharge: 10/01/20 - Primary Discharge Diagnosis Acute Problems: Active Problems (Last Updated 07/24/20 @ 13:17 by Zahra Chacko) Debility (Acute) Low back pain (Acute) Closed burst fracture of lumbar vertebra (Acute) Acute confusion (Acute) - Secondary Discharge Diagnosis Chronic Problems: Chronic Problems (Last Updated 07/24/20 @ 13:17 by Zahra Chacko) Memory impairment (Chronic) Parkinson disease (Chronic) Adrenal insufficiency (Chronic) Intracranial aneurysm (Chronic) Hypothyroidism (Chronic) Benign prostate hyperplasia (Chronic) Lumbar disc disease (Chronic) Coronary artery disease (Chronic) Hypertension (Chronic) Gout (Chronic) Osteoarthritis (Chronic) GERD (gastroesophageal reflux disease) (Chronic) Lumbar spinal stenosis (Chronic) Obstructive sleep apnea (Chronic) CAD in [place] artery (Chronic) 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) Secondary adrenal insufficiency (Chronic) 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) Arthritis (Chronic) Hx of heart artery stent (Chronic) X6 History of heart attack (Chronic) Low back problem (Chronic) Hospital Course and Treatment Imaging Results: 09/08/20 15:32 Diet: Regular - General Operations: None, - - Laparoscopic cholecystectomy with cholangiogram 12/25/2019 Procedures: None Summary of Care Provided: The patient is a 80 year old Male with below past medical history hospitalized for T11-L3 instrumented fusion, local bone graft, postoperative course complicated by encephalopathy, admitted to TCU with debility, here for rehabilitation, strengthening, prior to discharge home with . Discharge home with , Home Health Care PT/OT, Wheelchair. Patient Problems: Active and Suspected Problems (Last Updated 07/24/20 @ 13:17 by Zahra Chacko) Debility (Acute) Low back pain (Acute) Closed burst fracture of lumbar vertebra (Acute) Acute confusion (Acute) - Physical Exam Vitals/I&O's: Vital Signs Temp Pulse Resp BP Pulse Ox 97.6 F L 96 16 108/57 L 97 09/25/20 11:20 09/25/20 14:23 09/25/20 11:20 09/25/20 11:20 09/25/20 11:20 Oxygen Delivery Method Room Air Weight: 92.533 kg Body Mass Index (BMI) 29.4 Intake and Output for Last 24 Hours 09/23/20 09/24/20 09/25/20 23:59 23:59 23:59 Intake Total 840 / 840 600 / 600 960 / 960 Balance 840 / 840 600 / 600 960 / 960 Current Medications Acetaminophen (Acetaminophen 500 Mg Tablet) 1,000 mg PO Q6H PRN PRN PRN Reason: Pain Score 1-5 Last Admin: 09/25/20 14:18 Dose: 1,000 mg Documented by: Aspirin (Aspirin E.C. 81 Mg Tablet) [facility] Admin: 09/25/20 08:06 Dose: 81 mg Documented by: Atorvastatin Calcium (Atorvastatin Calcium 20 Mg Tablet) 20 mg PO QHS [facility] Last Admin: 09/24/20 19:41 Dose: 20 mg Documented by: Bisacodyl (Bisacodyl 10 Mg Suppository) 10 mg RECTAL DAILY PRN PRN Reason: Constipation Calamine/Phenol (Menthol/Lanolin/Calamine/Znox 113 Gm Tube) 1 applic TOPICAL 0600,2200 [facility]; Protocol Last Admin: 09/25/20 05:57 Dose: 1 applicatio Documented by: Carbidopa/Levodopa (Carbidopa/Levodopa 25/100 Tablet) 1 tablet PO TID [facility] Last Admin: 09/25/20 14:18 Dose: 1 tablet Documented by: Cholecalciferol (Cholecalciferol (Vit D3) 1,000 Unit (25mcg)) 2,000 unit PO DAILY [facility] Last Admin: 09/25/20 05:56 Dose: 2,000 unit Documented by: Emollient Ointment (Emollient Combination No.72 500 Ml Lotion) 1 applic TOPICAL DAILY@1800 [facility]; Protocol Last Admin: 09/25/20 17:48 Dose: 1 applicatio Documented by: Escitalopram Oxalate (Escitalopram Oxalate 10 Mg Tablet) 10 mg PO DAILY [facility] Last Admin: 09/25/20 05:56 Dose: 10 mg Documented by: Hydrocortisone (Hydrocortisone 10 Mg Tablet) 20 mg PO BID [facility] Last Admin: 09/25/20 17:48 Dose: 20 mg Documented by: Hydrocortisone (Hydrocortisone 2.5% Crm) 1 applic TOPICAL TID PRN PRN; Protocol PRN Reason: RASH/TOPICAL IRRITATION Last Admin: 09/13/20 21:17 Dose: 1 applicatio Documented by: Levothyroxine Sodium (Levothyroxine 100 Mcg Tablet) 100 mcg PO DAILY [facility] Last Admin: 09/25/20 05:56 Dose: 100 mcg Documented by: Losartan Potassium (Losartan Potassium 25 Mg Tablet) 25 mg PO DAILY [facility] Last Admin: 09/25/20 05:57 Dose: 25 mg Documented by: Magnesium Hydroxide (Magnesium Hydroxide 30 Ml Udc) 30 ml PO DAILY PRN PRN Reason: Constipation Nystatin (Nystatin Powder 15gm Bottle) 1 applic TOPICAL 0600,2200 [facility]; Protocol Last Admin: 09/25/20 05:57 Dose: 1 applicatio Documented by: Oxycodone HCl (Oxycodone 5 Mg Tablet) 5 mg PO Q4H PRN PRN PRN Reason: Pain Score 6-10 Last Admin: 09/14/20 11:17 Dose: 5 mg Documented by: Polyethylene Glycol (Polyethylene Glycol 3350 17 Gm Packet) 17 gm PO DAILY [facility] Last Admin: 09/25/20 05:58 Dose: Not Given Documented by: Polysaccharide Iron Complex (Iron Polysaccharide Complex 150 Mg Capsule) [facility] Last Admin: 09/25/20 08:06 Dose: 150 mg Documented by: Senna/Docusate Sodium (Senna/Docusate Sodium 1 Tablet) 1 tablet PO BID [facility] Last Admin: 09/25/20 17:48 Dose: 1 tablet Documented by: Sodium Chloride (Sodium Chloride 0.65% 1 [place].Btl) 1 spray NASAL BID PRN PRN PRN Reason: NASAL DRYNESS Last Admin: 09/21/20 19:50 Dose: 1 spray Documented by: Tamsulosin HCl (Tamsulosin Hcl 0.4 Mg Capsule) 0.8 mg PO QHS [facility] Last Admin: 09/24/20 19:41 Dose: 0.8 mg Documented by: Trazodone HCl (Trazodone 50 Mg Tablet) 50 mg PO QHS [facility] Last Admin: 09/24/20 19:41 Dose: 50 mg Documented by: Discharge Diet: No Restrictions Discharge Activity: Return to Normal Activity, May Shower, Use Walker Weight Bearing Status: Weight bearing as tolerated Call your doctor if you observe: Fever of 101 or Higher, Inability to urinate, Inability to have a bowel movement, Shortness of breath, Chest pain, Uncontrolled pain Home Medications: Medications to take at Discharge Escitalopram Oxalate 10 mg PO DAILY 10/24/19 Losartan Potassium [Cozaar] 25 mg PO DAILY 10/24/19 Atorvastatin Calcium [Lipitor] 20 mg PO DAILY 12/25/19 Aspirin [Aspir 81] 81 mg PO DAILY 01/16/20 Tamsulosin HCl [Flomax] 0.8 mg PO QHS 01/16/20 traZODone [Desyrel] 50 mg PO QHS 01/16/20 carbidopa 25 mg-levodopa 100 mg tablet 1 tab PO TID tab 07/24/20 Cholecalciferol (Vitamin D3) [Vitamin D3] 2,000 unit PO DAILY 09/08/20 Hydrocortisone [Cortef] 20 mg PO BID 09/08/20 Levothyroxine Sodium [Synthroid] 100 mcg PO DAILY 09/08/20 Acetaminophen [Tylenol] 1,000 mg PO Q6H PRN PRN tab 09/25/20 Emollient Combination No.72 [Eucerin Intensive Repair] 1 applic TOPICAL DAILY@1800 lotion 09/25/20 Escitalopram Oxalate [Lexapro] 10 mg PO DAILY tab 09/25/20 Iron Polysaccharide Complex [Ferrex 150] 150 mg PO DAILYCM #30 cap 09/25/20 Menthol/Lanolin/Calamine/Znox [Calmoseptine Ointment] 1 applic TOPICAL 0600,2200 tube 09/25/20 Nystatin Powder [Mycostatin Powder] 1 applic TOPICAL 0600,2200 bottle 09/25/20 Following Prescriptions Were Given to Patient: Iron Polysaccharide Complex [Ferrex 150] 150 mg PO DAILYCM #30 cap Transmission Status: Pending to [id number] Primary Care Physician: Gianluca Trevino MD [Primary Care Provider] - Please follow up with your Primary Care Physician in: 1 week. Please Follow Up With: Davey Malhotra MD When: 2 weeks. Disposition: Home with Home Health Minutes spent on discharge:: 35 Patient Condition:: Stable Medical Necessity - Tobacco Use Smoking Status: Never smoker Tobacco Use: Non-smoker Meaningful Use Info Meaningful Use Diagnoses (Choose all that apply): None applicable
[2020-09-25] MEDS: Tamsulosin HCl 0.4 MG Capsule 0.8 MG PO (20:26)
[2020-09-25] MEDS: traZODone 50 MG Tablet PO (20:27)
[2020-09-25] MEDS: Atorvastatin Calcium 20 MG Tablet PO (20:27)
[2020-09-26 05:00] VITALS: BP 132/68; PULSE 51; RESP 16; TEMP 36.6; O2SAT 96
[2020-09-26] MEDS: Polyethylene Glycol 3350 17 GM PACKET PO (05:03)
[2020-09-26] MEDS: Acetaminophen 500 MG Tablet 1000 MG PO ×2 (05:03→17:06)
[2020-09-26] MEDS: Hydrocortisone 10 MG Tablet 20 MG PO ×2 (05:04→17:07)
[2020-09-26] MEDS: Senna/Docusate Sodium 1 Tablet PO ×2 (05:04→17:07)
[2020-09-26] MEDS: Losartan Potassium 25 MG Tablet PO (05:04)
[2020-09-26] MEDS: Levothyroxine 100 MCG Tablet PO (05:04)
[2020-09-26] MEDS: Escitalopram Oxalate 10 MG Tablet PO (05:04)
[2020-09-26] MEDS: Menthol/Lanolin/Calamine/Znox 113 GM Tube 1 APPLIC TOPICAL ×2 (05:05→21:10)
[2020-09-26] MEDS: Nystatin Powder 15gm Bottle 1 APPLIC TOPICAL ×2 (05:05→21:12)
[2020-09-26] MEDS: Carbidopa/Levodopa 25/100 Tablet PO ×3 (05:06→21:08)
[2020-09-26] MEDS: Iron Polysaccharide Complex 150 MG CAPSULE PO (08:30)
[2020-09-26] MEDS: Aspirin E.C. 81 MG Tablet PO (08:30)
[2020-09-26 09:53] VITALS: PULSE 67; O2SAT 98
[2020-09-26 14:32] VITALS: BP 114/65; PULSE 69; RESP 16; TEMP 36.8; O2SAT 96
[2020-09-26] MEDS: Tamsulosin HCl 0.4 MG Capsule 0.8 MG PO (21:08)
[2020-09-26] MEDS: traZODone 50 MG Tablet PO (21:08)
[2020-09-26] MEDS: Atorvastatin Calcium 20 MG Tablet PO (21:11)
[2020-09-27 05:05] VITALS: BP 108/75; PULSE 56; RESP 16; TEMP 36.6; O2SAT 96
[2020-09-27] MEDS: Escitalopram Oxalate 10 MG Tablet PO (05:08)
[2020-09-27] MEDS: Senna/Docusate Sodium 1 Tablet PO ×2 (05:08→17:09)
[2020-09-27] MEDS: Losartan Potassium 25 MG Tablet PO (05:08)
[2020-09-27] MEDS: Levothyroxine 100 MCG Tablet PO (05:08)
[2020-09-27] MEDS: Hydrocortisone 10 MG Tablet 20 MG PO ×2 (05:08→17:09)
[2020-09-27] MEDS: Carbidopa/Levodopa 25/100 Tablet PO ×3 (05:08→21:46)
[2020-09-27] MEDS: Polyethylene Glycol 3350 17 GM PACKET PO (05:08)
[2020-09-27] MEDS: Nystatin Powder 15gm Bottle 1 APPLIC TOPICAL ×2 (05:12→21:46)
[2020-09-27] MEDS: Menthol/Lanolin/Calamine/Znox 113 GM Tube 1 APPLIC TOPICAL ×2 (05:12→21:44)
[2020-09-27] MEDS: Acetaminophen 500 MG Tablet 1000 MG PO (05:16)
[2020-09-27] MEDS: Aspirin E.C. 81 MG Tablet PO (08:02)
[2020-09-27] MEDS: Iron Polysaccharide Complex 150 MG CAPSULE PO (08:02)
[2020-09-27 13:58] VITALS: BP 109/53; PULSE 62; RESP 16; TEMP 36.8; O2SAT 98
[2020-09-27] MEDS: traZODone 50 MG Tablet PO (21:44)
[2020-09-27] MEDS: Tamsulosin HCl 0.4 MG Capsule 0.8 MG PO (21:45)
[2020-09-27] MEDS: Atorvastatin Calcium 20 MG Tablet PO (21:46)
[2020-09-28 05:00] VITALS: BP 139/72; PULSE 50; RESP 18; TEMP 36.6; O2SAT 98
[2020-09-28] MEDS: Losartan Potassium 25 MG Tablet PO (06:45)
[2020-09-28] MEDS: Senna/Docusate Sodium 1 Tablet PO ×2 (06:45→17:15)
[2020-09-28] MEDS: Escitalopram Oxalate 10 MG Tablet PO (06:45)
[2020-09-28] MEDS: Hydrocortisone 10 MG Tablet 20 MG PO ×2 (06:45→17:15)
[2020-09-28] MEDS: Carbidopa/Levodopa 25/100 Tablet PO ×3 (06:45→20:31)
[2020-09-28] MEDS: Levothyroxine 100 MCG Tablet PO (06:45)
[2020-09-28] MEDS: Menthol/Lanolin/Calamine/Znox 113 GM Tube 1 APPLIC TOPICAL ×2 (06:45→20:32)
[2020-09-28] MEDS: Nystatin Powder 15gm Bottle 1 APPLIC TOPICAL ×2 (06:46→20:33)
[2020-09-28] MEDS: Iron Polysaccharide Complex 150 MG CAPSULE PO (08:03)
[2020-09-28] MEDS: Aspirin E.C. 81 MG Tablet PO (08:03)
[2020-09-28 10:58] VITALS: PULSE 68; RESP 16; O2SAT 95
[2020-09-28 14:55] VITALS: BP 108/61; PULSE 58; RESP 17; TEMP 36.3; O2SAT 98
[2020-09-28] MEDS: traZODone 50 MG Tablet PO (20:31)
[2020-09-28] MEDS: Atorvastatin Calcium 20 MG Tablet PO (20:31)
[2020-09-28] MEDS: Tamsulosin HCl 0.4 MG Capsule 0.8 MG PO (20:31)
[2020-09-29 05:00] VITALS: BP 128/66; PULSE 53; RESP 15; TEMP 36.5; O2SAT 96
[2020-09-29] MEDS: Hydrocortisone 10 MG Tablet 20 MG PO ×2 (05:30→17:27)
[2020-09-29] MEDS: Escitalopram Oxalate 10 MG Tablet PO (05:30)
[2020-09-29] MEDS: Losartan Potassium 25 MG Tablet PO (05:30)
[2020-09-29] MEDS: Senna/Docusate Sodium 1 Tablet PO ×2 (05:31→17:27)
[2020-09-29] MEDS: Nystatin Powder 15gm Bottle 1 APPLIC TOPICAL ×2 (05:31→20:42)
[2020-09-29] MEDS: Levothyroxine 100 MCG Tablet PO (05:31)
[2020-09-29] MEDS: Carbidopa/Levodopa 25/100 Tablet PO ×3 (05:31→20:43)
[2020-09-29] MEDS: Menthol/Lanolin/Calamine/Znox 113 GM Tube 1 APPLIC TOPICAL ×2 (05:32→20:42)
[2020-09-29] MEDS: Iron Polysaccharide Complex 150 MG CAPSULE PO (08:52)
[2020-09-29] MEDS: Aspirin E.C. 81 MG Tablet PO (08:52)
[2020-09-29 14:12] VITALS: BP 101/57; PULSE 65; RESP 18; TEMP 36.2; O2SAT 100
[2020-09-29] MEDS: Acetaminophen 500 MG Tablet 1000 MG PO (17:30)
[2020-09-29] MEDS: Baclofen 10 MG Tablet PO (20:42)
[2020-09-29] MEDS: traZODone 50 MG Tablet PO (20:43)
[2020-09-29] MEDS: Atorvastatin Calcium 20 MG Tablet PO (20:43)
[2020-09-29] MEDS: Tamsulosin HCl 0.4 MG Capsule 0.8 MG PO (20:43)
[2020-09-30 05:06] VITALS: BP 127/73; PULSE 55; RESP 18; TEMP 36.3; O2SAT 95
[2020-09-30] MEDS: Polyethylene Glycol 3350 17 GM PACKET PO (05:09)
[2020-09-30] MEDS: Losartan Potassium 25 MG Tablet PO (05:09)
[2020-09-30] MEDS: Escitalopram Oxalate 10 MG Tablet PO (05:09)
[2020-09-30] MEDS: Senna/Docusate Sodium 1 Tablet PO ×2 (05:10→17:31)
[2020-09-30] MEDS: Levothyroxine 100 MCG Tablet PO (05:10)
[2020-09-30] MEDS: Carbidopa/Levodopa 25/100 Tablet PO ×3 (05:10→20:17)
[2020-09-30] MEDS: Hydrocortisone 10 MG Tablet 20 MG PO ×2 (05:10→17:31)
[2020-09-30] MEDS: Menthol/Lanolin/Calamine/Znox 113 GM Tube 1 APPLIC TOPICAL ×2 (05:11→20:18)
[2020-09-30] MEDS: Nystatin Powder 15gm Bottle 1 APPLIC TOPICAL ×2 (05:11→20:18)
[2020-09-30 05:51] LABS: Absolute Lymphocyte Count 1.88 X10^3/uL (0.83-4.51); Absolute Neutrophil Count 4.1 X10^3/uL (2.0-7.7); Basophil# 0.05 X10^3/uL; Basophil% 0.7 % (0-1); Eosinophil# 0.31 X10^3/uL; Eosinophils% 4.5 % (0-5); Hematocrit 34.7 % (40-54); Hemoglobin 10.5 g/dL (13.0-16.5); Lymphocyte # 1.88 X10^3/ul (4.0); Lymphocyte % 27.4 % (19-41); Mean Corp Hgb Conc 30.3 g/dL (32-36); Mean Corpuscular Hgb 30.9 pg (27.0-32.0); Mean Corpuscular Volume 102.1 fL (80-94); Mean Platelet Vol. 8.6 fl (6.2-12.0); Monocyte# 0.42 X10^3/uL; Monocyte% 6.1 % (0-10); NRBC Flagged by Analyzer 0 % (0-5); Neutrophil # 4.14 X10^3/uL (2.7-7.7); Neutrophil % 60.3 % (47-70); Platelet Count 175 K/mm3 (150-450); RBC Distribution Width CV 13.6 % (11.6-14.6); RBC Distribution Width SD 51.3 fl (35.1-43.9); White Blood Count 6.9 K/mm3 (4.4-11.0)
[2020-09-30 06:22] LABS: Anion Gap 3 (5-15); BUN 29 mg/dL (7-18); BUN/Creat Ratio 25.4 RATIO (10-20); Calcium,Total 8.9 mg/dL (8.5-10.1); Chloride 102 mmol/L (98-107); Creatinine, Serum 1.14 mg/dL (0.70-1.30); EST Glomerular Filtration Rate 66 mL/min (>60); Est Glom Filt Rate - Afr Amer 80 mL/min (>60); Estimated Creatinine Clearance 54.25 ml/min; Glucose 98 mg/dL (74-106); Sodium Level 137 mmol/L (136-145)
[2020-09-30] MEDS: Aspirin E.C. 81 MG Tablet PO (08:16)
[2020-09-30] MEDS: Iron Polysaccharide Complex 150 MG CAPSULE PO (08:16)
[2020-09-30] MEDS: Acetaminophen 500 MG Tablet 1000 MG PO ×2 (08:19→15:51)
--- NOTE | 2020-09-30 11:48 | NURSING ---
Addendum entered by Liz Carreon 09/30/20 14:20: Dr. Rios updated on Left Groin pain gave new order for CT of pelvis without contrast. Original Note: Pt c/o of left side groin pain Dr. Rios was notified 09/29 order baclofen. Pt still c/o of groin pain and stated the baclofen didn't help much at all. Will update Dr. Rios.
[2020-09-30 12:02] VITALS: PULSE 65; RESP 16; O2SAT 96
[2020-09-30 13:11] VITALS: BP 114/88; PULSE 66; RESP 14; TEMP 36.2; O2SAT 96
--- NOTE | 2020-09-30 16:05 | NURSING ---
Called pt's to update her on pt's CT scan. did not answer and unable to leave a message.
[2020-09-30 19:05] VITALS: BP 106/54; PULSE 64; RESP 16; TEMP 36.5; O2SAT 98
[2020-09-30] MEDS: Tamsulosin HCl 0.4 MG Capsule 0.8 MG PO (20:17)
[2020-09-30] MEDS: traZODone 50 MG Tablet PO (20:17)
[2020-09-30] MEDS: Atorvastatin Calcium 20 MG Tablet PO (20:17)
[2020-09-30] MEDS: Baclofen 10 MG Tablet PO (20:17)
--- NOTE | 2020-09-30 22:18 | NURSING ---
pt voiced concern over hematoma to the groin and the ability of still going home or not, reassurance given with fair effect.
[2020-10-01 05:00] VITALS: BP 147/65; PULSE 55; RESP 16; TEMP 36.4; O2SAT 95
[2020-10-01] MEDS: Acetaminophen 500 MG Tablet 1000 MG PO (06:06)
[2020-10-01] MEDS: Escitalopram Oxalate 10 MG Tablet PO (06:07)
[2020-10-01] MEDS: Nystatin Powder 15gm Bottle 1 APPLIC TOPICAL (06:07)
[2020-10-01] MEDS: Hydrocortisone 10 MG Tablet 20 MG PO (06:07)
[2020-10-01] MEDS: Levothyroxine 100 MCG Tablet PO (06:07)
[2020-10-01] MEDS: Senna/Docusate Sodium 1 Tablet PO (06:07)
[2020-10-01] MEDS: Polyethylene Glycol 3350 17 GM PACKET PO (06:07)
[2020-10-01] MEDS: Losartan Potassium 25 MG Tablet PO (06:07)
[2020-10-01] MEDS: Menthol/Lanolin/Calamine/Znox 113 GM Tube 1 APPLIC TOPICAL (06:08)
[2020-10-01] MEDS: Carbidopa/Levodopa 25/100 Tablet PO (06:24)
[2020-10-01] MEDS: Iron Polysaccharide Complex 150 MG CAPSULE PO (08:52)
[2020-10-01] MEDS: Aspirin E.C. 81 MG Tablet PO (08:52)
[2020-10-01 09:37] VITALS: O2SAT 98
== END 2020-10-01 10:30 | disposition home health service (06) | DRG 560 ==
PROVIDERS: Admitting Provider Family Medicine Geriatric Medicine; PCP Family Medicine; Visit Provider Family Medicine Geriatric Medicine
DX: Z47.89 Encounter for other orthopedic aftercare (principal); E27.40 Unspecified adrenocortical insufficiency; Z98.1 Arthrodesis status; Z23 Encounter for immunization; K21.9 Gastro-esophageal reflux disease without esophagitis; M19.90 Unspecified osteoarthritis, unspecified site; G47.33 Obstructive sleep apnea (adult) (pediatric); I10 Essential (primary) hypertension; I25.10 Atherosclerotic heart disease of native coronary artery without angina pectoris; N40.0 Benign prostatic hyperplasia without lower urinary tract symptoms; E03.9 Hypothyroidism, unspecified; G20 Parkinson's disease; I25.2 Old myocardial infarction; E78.5 Hyperlipidemia, unspecified; B35.4 Tinea corporis; E55.9 Vitamin D deficiency, unspecified; F32.9 Major depressive disorder, single episode, unspecified
CPT/HCPCS: 36415; 80048; 85014; 85018; 85025; 87426; 87635; 92523; 92610; 97110; 97116; 97162; 97166; 97530; 97535; 97802; G0008; 90686; U0003

== ENCOUNTER → 2020-09-30 14:15 | Outpatient (CLI) | payer MEDICARE, SELFPAY ==
[2020-09-08 15:17] VITALS: BMI 29.4
--- NOTE | 2020-09-30 14:19 | CT_ITS ---
STUDY: CT PELVIS WITHOUT CONTRAST REASON FOR EXAM: Male, 80 years old. LEFT GROIN PAIN X 4 DAYS. BACK SURGERY RADIATION DOSAGE (If Supplied By Facility): CTDIvol = ( 28.20 ) mGy, DLP = ( 1010.84 ) mGycm TECHNIQUE: Transaxial imaging of the pelvis was performed with oral contrast, and without intravenous administration of contrast material. Individualized dose optimization techniques were used for this CT. COMPARISON: Comparison is made with prior study dated 01/03/2020. FINDINGS: Since prior study, the patient underwent laminectomy and interpedicular screw and marnie fixation at the L2-L3 level. There now is evidence of a 2.9 cm x 2.8 cm x 8.5 cm in height area of increased attenuation coefficient within the left psoas muscle. This may represent a left psoas hematoma secondary to the surgical procedure. Clinical correlation is recommended. Mild degree of increased markings in the surrounding peritoneal fat in the left lower abdomen and pelvis. Normal urinary bladder. Normal visualized small intestine. There are multiple colonic diverticula of the sigmoid colon consistent with chronic diverticulosis. There is no pelvic fluid. There is no pelvic mass lesion or lymphadenopathy. There is diffuse atherosclerotic calcification of the pelvic arteries. Normal abdominal wall. CT/Pelvis without IV Contrast IMPRESSION: Since prior study, the patient underwent navicular screw fixation at the L2-L3 level. There now is evidence of a 2.9 cm x 2.8 cm x 8.5 cm in height area of increased attenuation within the left psoas muscle adjacent to the operative site. This may represent focal hematoma. Clinical correlation is recommended. Electronically Signed: Luis Fontaine MD at 14:57 EST , Service support ,
== END ==
PROVIDERS: PCP Family Medicine; Referring Provider Family Medicine Geriatric Medicine; Visit Provider Family Medicine Geriatric Medicine
DX: R10.30 Lower abdominal pain, unspecified (principal)
CPT/HCPCS: 72192

== ENCOUNTER 2020-11-25 19:11 | Emergency (ER) | payer MEDICARE, SELFPAY ==
[2020-09-08 15:17] VITALS: BMI 29.4
[2020-11-25 19:12] VITALS: BP 144/107; PULSE 83; RESP 16; TEMP 36.3; O2SAT 98; BMI 28.7
--- NOTE | 2020-11-25 19:46 | ED.DCSUM_ITS ---
History of Present Illness Chief Complaint: Nausea/Vomiting Informant: Patient, Significant Other Onset: Days Context: Sudden Onset Timing: Intermittent Quality: Nausea and vomiting Location: GI Current Severity: Mild - 2-3 episodes per day for the past 3 days Worsened by: Nothing Relieved by: Nothing Associated Symptoms: Thirst and dry mouth Narrative: Patient is an elderly male who presents with nausea and vomiting for the past 3 days. He reports 2-3 episodes of emesis per day. There is no blood or coffee grounds noted. He has had no black or maroon-colored stool. He denies abdominal pain. He denies fever or chills. He denies headache, visual, ocular auditory symptoms. He denies cardiac respiratory symptoms. He does report orange-colored urine. He is on no new medication. He denies dysuria or hematuria. He does report lightheadedness with standing. Prior similar symptoms: No Recent Illness/Hospitalization: No - Past Medical History (1) Closed burst fracture of lumbar vertebra Status: Acute (2) Fatigue Status: Acute (3) Low back pain Status: Acute (4) Adrenal insufficiency Status: Chronic (5) Arthritis Status: Chronic (6) Benign prostate hyperplasia Status: Chronic (7) CAD in [place] artery Status: Chronic (8) GERD (gastroesophageal reflux disease) Status: Chronic (9) Gout Status: Chronic (10) Hypertension Status: Chronic (11) Intracranial aneurysm Status: Chronic (12) Lumbar spinal stenosis Status: Chronic (13) Memory impairment Status: Chronic (14) Obstructive sleep apnea Status: Chronic (15) Osteoarthritis Status: Chronic (16) Parkinson disease Status: Chronic Past Medical History - Allergies and Home Meds Allergies/Adverse Reactions: Allergies No Known Allergies Allergy (Verified 07/24/20 13:05) Primary Care Physician: Gianluca Trevino MD [Primary Care Provider] - Surgical History: angioplasty - Cardiac stents x 6., cholecystectomy, - - Intracranial aneurysm, Status post elbow surgery, back surgery, pituitary adenoma resection, orthopedic surgeries Smoking Status: Never smoker - Family History Maternal Family History: Family History (Last Reviewed 07/24/20 @ 13:06 by Zahra Chacko) Mother Skin cancer Cancer Sister Cancer Family History: Reports: Cancer Paternal Family History: Family History (Last Reviewed 07/24/20 @ 13:06 by Zahra Chacko) Mother Skin cancer Cancer Sister Cancer Family History: Reports: Heart Disease - [place] Review of Systems General: Reports: Malaise. Denies: Chills, Fever, Subjective, Sweats Eyes: Denies: Visual changes - bilaterally, Blurred Vision - bilaterally, Diplopia ENT: Denies: Bilateral ear pain, Right ear pain, Rhinorrhea, Sore throat Cardiovascular: Denies: Chest pain, Palpitations Respiratory: Denies: Dyspnea, Cough, Dyspnea on exertion Gastrointestinal: Reports: Nausea, Vomiting. Denies: Abdominal pain, Diarrhea, Constipation, Melena, Hematochezia Genitourinary: Reports: - - Patient reports orange-colored urine. Denies: Dysuria, Hematuria, Frequency Musculoskeletal: Reports: Back pain - Chronic. Denies: Myalgias, Arthralgias, Extremity Pain Skin: Denies: Rash, Wounds Neurological: Reports: Weakness. Denies: Headache Psych: Denies: Depression, Anxiety Allergy: Denies: Uticaria, Swelling of the mouth Physical Exam Vital Signs/Narrative: Vital Signs Temp Pulse Resp BP Pulse Ox 11/25/20 19:12 97.3 F L 83 16 144/107 H 98 Inital Vital Signs reviewed: Yes General: Well nourished, Well developed, No Acute Distress Head: Normocephalic, Atraumatic Eyes: Perrl, EOMI. Negative for: Pale conjunctiva, Scleral icterus ENT: No rhinorrhea, TM's clear, Dry mucous membranes. Negative for: Nasal congestion, Sinus tenderness Neck: Supple, Nontender, No lymphadenopathy, No JVD Cardiovascular: Regular rate, Regular rhythm, No murmurs, Normal S1, Normal S2 Respiratory: No distress, CTA bilaterally, Chest nontender Abdomen: Soft, Nontender, Nondistended, Normal bowel sounds Back: Nontender, Normal Inspection. Negative for: CVA tenderness Extremities: Nontender, No edema Skin: Normal color, No rash Neurological: Alert, Oriented x3, Cranial nerves II-XII grossly intact, Normal Strength, Normal Sensation Psychological: Normal affect Diagnostic/Tx/Re-eval - Rhythm Strip Rhythm Strip: Sinus Rhythm Rate: 86 Ectopy: None - Medical Decision Making Medically patient appears dehydrated. Since he has not had anything to eat for 3 days will obtain basic blood work to assess electrolytes, renal function and anion gap. He received 1 L of normal saline and antiemetic. Patient was reassessed at 2114. Plan is to discharge with home. Will have prescription filled at [facility] pharmacy since pharmacies are closed locally. ED Disposition - Plan for ED Patient: Disposition: Home or Assisted Living Diagnosis: Nausea and vomiting, Mild dehydration Prescriptions: Ondansetron [Zofran Odt] 4 mg PO Q8H PRN PRN #6 tablet PRN Reason: Nausea Prescription Printed Referrals: Gianluca Trevino MD [Primary Care Provider] - 1-2 Days if not improving
[2020-11-25] MEDS: 0.9% Normal Saline 1,000 ML 1000 ML IV (20:01)
[2020-11-25] MEDS: Ondansetron 4 MG/2 ML Vial IV (20:01)
[2020-11-25 20:05] LABS: Absolute Lymphocyte Count 1.25 X10^3/uL (0.83-4.51); Absolute Neutrophil Count 3.2 X10^3/uL (2.0-7.7); Basophil# 0.04 X10^3/uL; Basophil% 0.8 % (0-1); Eosinophil# 0.27 X10^3/uL; Eosinophils% 5.2 % (0-5); Hematocrit 34.7 % (40-54); Hemoglobin 11.1 g/dL (13.0-16.5); Lymphocyte # 1.25 X10^3/ul (4.0); Lymphocyte % 23.9 % (19-41); Mean Corpuscular Hgb 29.8 pg (27.0-32.0); Mean Platelet Vol. 9.4 fl (6.2-12.0); Monocyte# 0.44 X10^3/uL; Monocyte% 8.4 % (0-10); NRBC Flagged by Analyzer 0 % (0-5); Neutrophil # 3.19 X10^3/uL (2.7-7.7); Neutrophil % 60.7 % (47-70); Platelet Count 198 K/mm3 (150-450); RBC Distribution Width CV 13.3 % (11.6-14.6); RBC Distribution Width SD 45.7 fl (35.1-43.9); Red Blood Count 3.73 M/mm3 (4.6-6.2); White Blood Count 5.2 K/mm3 (4.4-11.0)
[2020-11-25 20:21] LABS: Anion Gap 8 (5-15); BUN 8 mg/dL (7-18); BUN/Creat Ratio 7.1 RATIO (10-20); Calcium,Total 8.6 mg/dL (8.5-10.1); Chloride 101 mmol/L (98-107); Creatinine, Serum 1.12 mg/dL (0.70-1.30); EST Glomerular Filtration Rate 67 mL/min (>60); Est Glom Filt Rate - Afr Amer 81 mL/min (>60); Estimated Creatinine Clearance 55.22 ml/min; Glucose 117 mg/dL (74-106); Potassium 3.5 mmol/L (3.5-5.1); Sodium Level 135 mmol/L (136-145)
[2020-11-25 21:12] VITALS: BP 139/80; PULSE 69; RESP 16
[2020-11-25 22:32] VITALS: BP 126/70; PULSE 72; RESP 16
== END 2020-11-25 23:05 | disposition home or self-care (01) ==
PROVIDERS: Emergency Provider Emergency Medicine; PCP Family Medicine
DX: R11.2 Nausea with vomiting, unspecified (principal); E86.0 Dehydration; I25.10 Atherosclerotic heart disease of native coronary artery without angina pectoris; Z95.5 Presence of coronary angioplasty implant and graft; Z90.49 Acquired absence of other specified parts of digestive tract
CPT/HCPCS: 80048; 85025; 96374; 99283; J7030; A4216; J2405

== ENCOUNTER → 2020-12-01 07:08 | Outpatient (CLI) | payer MEDICARE, SELFPAY ==
[2020-11-25 19:12] VITALS: BMI 28.7
--- NOTE | 2020-12-01 07:12 | CT_ITS ---
STUDY: CT BRAIN WITHOUT CONTRAST REASON FOR EXAM: Male, 80 years old. GAIT INSTABILITY -- SURG-pituitary tumor removed 07/2019 RADIATION DOSAGE (If Supplied By Facility): CTDIvol = ( 44.99 ) mGy, DLP = ( 812.98 ) mGycm TECHNIQUE: Transaxial CT imaging of the brain was performed without administration of intravenous contrast material. Individualized dose optimization techniques were used for this CT. COMPARISON: Comparison is made with prior study 03/07/2020 FINDINGS: Normal soft tissue structures. Normal calvarium. There is mild cerebral atrophy with widening of the extra-axial spaces and ventricular dilatation. There are areas of decreased attenuation within the white matter tracts of the supratentorial brain, consistent with microvascular disease changes. Focal encephalomalacia in the left temporal parietal lobe Normal basal ganglia and thalami. Normal brainstem. There is moderate cerebellar atrophy. Postoperative changes in the sella. There is no intracranial hemorrhage. There are no findings of an acute ischemic infarction. Normal visualized paranasal sinuses. CT/Brain/Head without Contrast IMPRESSION: Chronic involutional changes of the brain. Electronically Signed: Luis Fontaine MD at 8:12 EDT , Service support ,
== END ==
PROVIDERS: PCP Family Medicine; Referring Provider Family Medicine; Visit Provider Family Medicine
DX: I82.409 Acute embolism and thrombosis of unspecified deep veins of unspecified lower extremity (principal); R26.81 Unsteadiness on feet
CPT/HCPCS: 70450

== ENCOUNTER → 2020-12-11 08:59 | Outpatient (CLI) | payer MEDICARE, SELFPAY ==
[2020-11-25 19:12] VITALS: BMI 28.7
--- NOTE | 2020-12-11 09:51 | VDLE_ITS ---
Reason For Study: Left leg edema RIGHT LEFT CFV is compressible, spontaneous, phasic, GSV is normal. competent and demonstrates normal Acute deep vein thrombosis is noted in the augmentation. left CFV, FV, PopV, T/P Trunk, GastrocV, Procedure PTV, PeroV. This is a venous duplex using B-mode, color Minimal flow is noted in the left CFV and flow and spectral Doppler. PopV. Exam performed in department. A preliminary report was called and/or faxed to Rosalina HERNANDEZ. VL/Venous Duplex US, Unilateral Interpretation Summary Acute deep venous thrombosis left common femoral, femoral, popliteal, tibiopero dinah trunk, gastrocnemius, posterior tibial, and peroneal veins Patent and compressible left great saphenous vein Normal flow patterns right common femoral vein Ordering Physician: Gianluca Trevino Referring Physician: Gianluca Trevino Performed By: Sepideh Hidalgo RVT and Student
== END ==
PROVIDERS: PCP Family Medicine; Referring Provider Family Medicine; Visit Provider Family Medicine
DX: R60.0 Localized edema (principal); R26.81 Unsteadiness on feet; I82.409 Acute embolism and thrombosis of unspecified deep veins of unspecified lower extremity
CPT/HCPCS: 93971

== ENCOUNTER 2020-12-22 11:41 | Observation (INO) | payer MEDICARE, SELFPAY ==
[2020-12-22] VITALS (20 sets, daily range): BP systolic 93–158; BP diastolic 53–81; PULSE 56–69; RESP 6–20; TEMP 36.6–37; O2SAT 95–99; BMI 30.4; BMI 29.3
--- NOTE | 2020-12-22 12:10 | EKG12_ITS ---
Test Reason : NEURO SX Blood Pressure : / mmHG Vent. Rate : 065 BPM Atrial Rate : 065 BPM P-R Int : 202 ms QRS Dur : 092 ms QT Int : 422 ms P-R-T Axes : 046 010 104 degrees QTc Int : 438 ms Normal sinus rhythm Nonspecific ST and T wave abnormality Abnormal ECG Confirmed by ANNIE BOSTON, LYNDSAY ([id number]), senior salesforce developer PEBBLES PAULSON ([id number]) on 12/24/2020 8:23:31 AM Referred By: MAGGIE Confirmed By:LYNDSAY VALENCIA MD
--- NOTE | 2020-12-22 12:10 | CT_ITS ---
We are attempting to reach an attending provider to discuss findings. An addendum with communication details will be sent when the communication is complete. STUDY: CT HEAD STROKE PROTOCOL W/O CONTRAST INJECTION REASON FOR EXAM: Male, 80 years old. Neuro deficit, acute, stroke suspected RADIATION DOSAGE (If Supplied By Facility): CTDIvol = ( ) mGy, DLP = ( ) mGycm TECHNIQUE: Transaxial CT imaging of the brain was performed without administration of intravenous contrast material. Individualized dose optimization techniques were used for this CT. COMPARISON: 12/01/2020 FINDINGS: Normal soft tissue structures. Normal calvarium. There is moderate cerebral atrophy with widening of the extra-axial spaces and ventricular dilatation. There are areas of decreased attenuation within the white matter tracts of the supratentorial brain, consistent with microvascular disease changes. Normal basal ganglia and thalami. Normal brainstem. Normal cerebellum. There is no intracranial hemorrhage. There are no findings of an acute ischemic infarction. Normal visualized paranasal sinuses. ASPECT score: CT/STROKE Brain/Head without Cont IMPRESSION: Chronic involutional changes of the brain. Electronically Signed: Sher Gomez MD at 12:33 EDT Tel , Service support ,
--- NOTE | 2020-12-22 12:11 | CT_ITS ---
STUDY: CTA HEAD AND NECK WITH CONTRAST REASON FOR EXAM: Male, 80 years old. Neuro deficit, acute, stroke suspected RADIATION DOSAGE (If Supplied By Facility): CTDIvol = ( 27.41 ) mGy, DLP = ( 1023.60 ) mGycm TECHNIQUE: CT angiography was performed with a multi-detector CT scanner. Data acquisition was obtained from the skull base through the vertex following intravenous administration of IV 100ML ISOVUE 370. MIP images were reconstructed from the axial data set. Post-processing of the angiographic images was performed, with multiplanar reformation and 3D reconstruction. Individualized dose optimization techniques were used for this CT. COMPARISON: No relevant priors. FINDINGS: Normal bilateral petrous carotid arteries. There is calcified plaque formation of the right cavernous carotid artery, without a cross-sectional luminal stenosis. There is calcified plaque formation of the left cavernous carotid artery, without a cross-sectional luminal stenosis. Normal right A1 segments of the anterior cerebral artery. Normal left A1 segments of the anterior cerebral artery. Normal intact anterior communicating artery (ACOM). Normal bilateral A2 segments of the anterior cerebral arteries. Normal right M1 and M2 segments of the middle cerebral arteries, with a normal M1 bifurcation. Normal left M1 and M2 segments of the middle cerebral arteries, with a normal M1 bifurcation. Normal right posterior communicating artery (PCOM). Normal left posterior communicating artery (PCOM). Normal bilateral vertebral arteries. Normal basilar artery with a normal basilar bifurcation. The visualized bilateral superior cerebellar (SCA) arteries are normal. Normal bilateral P1, P2 and visualized P3 segments of the posterior cerebral arteries. There is no demonstrated aneurysm of the [place]. There is no demonstrated abnormality of the visualized brain. AORTIC ARCH: There is atherosclerotic calcific plaque formation of the aortic arch and great vessels arising from the aortic arch, without a hemodynamically significant stenosis. There is a normal origin of the brachiocephalic, left common carotid, and left subclavian arteries. RIGHT CAROTID ARTERIES: Normal right common carotid artery (CCA). Normal right common carotid bulb. There is moderate atherosclerotic plaque formation of the origin of the right internal carotid artery with an estimated stenosis of 50-69% stenosis. Normal visualized cervical portion of the right internal carotid artery. Normal origin of the right external carotid artery (ECA). LEFT CAROTID ARTERIES: Atherosclerotic plaque is seen at the origin of the left common carotid artery. Normal left common carotid bulb. There is mild atherosclerotic plaque formation of the origin of the left internal carotid artery with less than 50% cross sectional diameter stenosis. Normal visualized cervical portion of the left internal carotid artery. Normal origin of the left external carotid artery (ECA). VERTEBRAL ARTERIES: Normal bilateral vertebral arteries. CT/STROKE CTA Head AND Neck W/Con IMPRESSION: Calcific plaque at the origin of the right internal carotid artery because between 50 and 69% narrowing. Calcific plaque at the origin of the left internal carotid artery causing less than 50% stenosis. N.B. : The above information has been verbally conveyed by Luis Fontaine MD to [facility] on 12/22/2020 12:45:03 (ET). Electronically Signed: Luis Fontaine MD at 12:46 EDT , Service support ,
[2020-12-22 12:15] LABS: Bedside Glucose 133 mg/dL (70-110)
--- NOTE | 2020-12-22 12:20 | CM.ED ---
SOCIAL WORK Responded to Stroke Alert. Patient's at bedside and physician in room. Wander Riaz present and reports support provided. This worker to remain available for needs. Andrew Zimmerman, DIALS SUPERVISOR, ORTHOPAEDIC SURGEON
[2020-12-22 12:25] LABS: Absolute Lymphocyte Count 1.19 X10^3/uL (0.83-4.51); Absolute Neutrophil Count 6.5 X10^3/uL (2.0-7.7); Basophil# 0.06 X10^3/uL; Basophil% 0.7 % (0-1); Eosinophil# 0.19 X10^3/uL; Eosinophils% 2.2 % (0-5); Hematocrit 39.5 % (40-54); Hemoglobin 12.3 g/dL (13.0-16.5); Lymphocyte # 1.19 X10^3/ul (0.83-4.51); Mean Corp Hgb Conc 31.1 g/dL (32-36); Mean Corpuscular Hgb 29.5 pg (27.0-32.0); Mean Corpuscular Volume 94.7 fL (80-94); Mean Platelet Vol. 9.7 fl (6.2-12.0); Monocyte# 0.54 X10^3/uL; Monocyte% 6.3 % (0-10); NRBC Flagged by Analyzer 0 % (0-5); Neutrophil % 76.3 % (47-70); Platelet Count 194 K/mm3 (150-450); RBC Distribution Width CV 14.1 % (11.6-14.6); RBC Distribution Width SD 49.1 fl (35.1-43.9); Red Blood Count 4.17 M/mm3 (4.6-6.2); White Blood Count 8.5 K/mm3 (4.4-11.0)
[2020-12-22 12:36] LABS: International Normalized Ratio 1.5; Partial Thromboplast Time 31.7 Seconds (24.1-36.2)
[2020-12-22 12:45] LABS: Anion Gap 5 (5-15); BUN 12 mg/dL (7-18); BUN/Creat Ratio 8.8 RATIO (10-20); Chloride 107 mmol/L (98-107); Creatinine, Serum 1.36 mg/dL (0.70-1.30); EST Glomerular Filtration Rate 54 mL/min (>60); Est Glom Filt Rate - Afr Amer 65 mL/min (>60); Estimated Creatinine Clearance 45.48 ml/min; Glucose 121 mg/dL (74-106); Potassium 3.8 mmol/L (3.5-5.1); Sodium Level 140 mmol/L (136-145)
--- NOTE | 2020-12-22 13:20 | RAD_ITS ---
STUDY: X-RAY CHEST REASON FOR EXAM: Male, 80 years old. Neuro deficit, acute, stroke suspected TECHNIQUE: Single AP portable view of the chest. COMPARISON: 08/20/2020 FINDINGS: The lungs are clear and expanded. There is no demonstrated pleural abnormality. Normal size heart. Normal mediastinum and rd. Normal visualized pulmonary arteries. Normal visualized aortic arch and descending thoracic aorta. Normal visualized thoracic spine. Normal visualized ribs, clavicles, and shoulders. There is no demonstrated abnormality of the visualized soft tissue structures of the upper abdomen. RAD/Chest 1 View IMPRESSION: Normal x-ray examination of the chest. Electronically Signed: Sher Gomez MD at 13:49 EDT Tel , Service support ,
--- NOTE | 2020-12-22 13:36 | EDS_ITS ---
HPI History of Present Illness Chief Complaint: Fall Informant: patient and spouse/S.O. Onset/Context/Timing Onset: Today (Falling to left noted at 1030.) and Yesterday (Change in mental status and somnolence starting yesterday per ) Context: Onset with activity (Physical therapy this morning) and Sudden Onset Quality and Location: Positive for Difficulty with Ambulation Onset: 1030 Current Severity: Patient lying on exam table with no symptoms Maximum Severity: Mild Worsened by: Nothing Relieved by: Nothing Associated Symptoms Associated Symptoms: Positive for Headache (Told triage that headache started a week ago. He told me headache started after fall.) Narrative Narrative: Patient is an elderly male on anticoagulant because of recent diagnosis of DVT. He fell yesterday. He denies head trauma. He does report headache. He states today he had problems with his balance. states physical therapist noticed he was falling to the left. He also complained of change in vision and double vision. did not noted any change in his voice or speech. He denied any numbness or tingling his arms or legs. He had no other complaints. Patient and states is unusual for him to complain of headache. He denies fever, chills night sweats. He denies respiratory or cardiac symptoms. He denies nausea, vomiting diarrhea. He denies black or maroon- colored stool. He denies dysuria, frequency, urgency or hematuria. 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 Home Medications Escitalopram Oxalate 10 mg PO DAILY 10/24/19 [History Last Taken 01/15/20] losartan 25 mg PO DAILY 10/24/19 [History Last Taken 01/15/20] atorvastatin 20 mg PO DAILY 12/25/19 [History Last Taken 01/14/20] aspirin 81 mg PO DAILY 01/16/20 [History Last Taken 01/15/20] tamsulosin 0.8 mg PO QHS 01/16/20 [History Last Taken 01/14/20] trazodone 50 mg PO QHS 01/16/20 [History Last Taken 01/14/20] carbidopa 25 mg-levodopa 100 mg tablet 1 tab PO TID tab 07/24/20 [History Last Taken Unknown] cholecalciferol (vitamin D3) 2,000 unit PO DAILY 09/08/20 [History Last Taken Unknown] hydrocortisone 20 mg PO BID 09/08/20 [History Last Taken Unknown] levothyroxine 100 mcg PO DAILY 09/08/20 [History Last Taken Unknown] Emollient Combination No.72 [Eucerin Intensive Repair] 1 applic TOPICAL DAILY@1800 lotion 09/25/20 [Rx Last Taken Unknown] acetaminophen 1,000 mg PO Q6H PRN PRN tab 09/25/20 [Rx Last Taken Unknown] escitalopram oxalate 10 mg PO DAILY tab 09/25/20 [Rx Last Taken Unknown] menthol-zinc oxide 1 applic TOPICAL 0600,2200 tube 09/25/20 [Rx Last Taken Unknown] nystatin 1 applic TOPICAL 0600,2200 bottle 09/25/20 [Rx Last Taken Unknown] polysaccharide iron complex 150 mg PO DAILYCM #30 cap 09/25/20 [Rx Last Taken Unknown] ondansetron 4 mg PO Q8H PRN PRN #6 tablet 11/25/20 [Rx Last Taken Unknown] Allergy/AdvReac Type Severity Reaction Status Date / Time No Known Allergies Allergy Verified 12/22/20 11:47 Family History Mother Skin cancer Cancer Skin and other unknown Sister Cancer Unknown type Surgical History History of back surgery History of cholecystectomy (~12/2019) Hx of colonoscopy Hx of elbow surgery Hx of heart artery stent Hx of left breast biopsy Social History Smoking Status: Never smoker second hand exposure: No alcohol intake: current alcohol intake frequency: holidays/special occasions only substance use type: does not use caffeine: Yes what type of physical activity do you participate in: none frequency: does not exercise ROS ROS ED Review of Systems ROS Unobtainable: due to mental status Constitutional Constitutional ED: Reports chills and weakness; Denies fever(s), subjective or sweats Eyes Eyes: Reports change in vision and diplopia; Denies blurry vision ENT ENT ED: Reports rhinorrhea; Denies ear pain or sore throat Cardiovascular Cardiovascular: Denies chest pain, palpitations or racing heartbeat Respiratory/Chest Respiratory/Chest: Denies cough, dyspnea or dyspnea on exertion Gastrointestinal Gastrointestinal: Denies abdominal pain, constipation, diarrhea, melena, nausea or vomiting Genitourinary Genitourinary ED: Denies dysuria, hematuria or urinary frequency Musculoskeletal Musculoskeletal: Denies arthralgias, myalgias or neck pain Integumentary Denies rash Neurologic Neurologic: Reports headache(s) and weakness; Denies paresthesias Psychiatric Psychiatric: Denies depression Endocrine Endocrinology: Denies polydipsia, polyphagia or polyuria Hematologic/Lymphatic Hematologic/Lymphatic: Denies easy bleeding or easy bruising EXAM Physical Exam Const Vital Signs: 12/22/20 11:43 12/22/20 11:47 12/22/20 12:10 Temperature 98.4 F Temperature Source Oral Pulse Rate 67 68 Respiratory Rate 18 20 H Respiratory Effort Normal Respiratory Depth Normal Respiratory Pattern Normal Blood Pressure 94/53 L 93/62 Blood Pressure Mean 66 72 Pulse Ox 99 97 Oxygen Delivery Method Room Air Room Air Room Air 12/22/20 12:37 12/22/20 12:50 12/22/20 13:00 Temperature Temperature Source Pulse Rate 68 66 62 Respiratory Rate 18 16 16 Respiratory Effort Respiratory Depth Respiratory Pattern Blood Pressure 114/60 122/60 H 122/65 H Blood Pressure Mean 78 80 84 Pulse Ox 98 98 97 Oxygen Delivery Method Room Air 12/22/20 13:15 12/22/20 13:30 12/22/20 13:45 Temperature Temperature Source Pulse Rate 61 68 63 Respiratory Rate 18 18 16 Respiratory Effort Respiratory Depth Respiratory Pattern Blood Pressure 113/66 137/67 H 125/64 H Blood Pressure Mean 81 90 84 Pulse Ox 99 97 98 Oxygen Delivery Method Room Air Room Air 12/22/20 14:00 Temperature Temperature Source Pulse Rate 68 Respiratory Rate 16 Respiratory Effort Respiratory Depth Respiratory Pattern Blood Pressure 122/63 H Blood Pressure Mean 82 Pulse Ox 97 Oxygen Delivery Method HEENT Reports TM's clear and moist mucous membranes atraumatic Nose: other Other Details: There is no clinical findings of basilar skull fracture. Tympanic Membrane ED: Yes TM's clear Eyes PERRL and EOMs intact bilaterally General Eye ED: Yes other Other Details: There is no neck mass. ; Negative for pale conjunctiva or scleral icterus Chest Wall inspection of chest normal and palpation of chest normal Resp normal respiratory effort and clear to auscultation bilaterally Cardio no murmurs Rate: regular rate Rhythm: regular rhythm Heart Sounds: S1 normal and S2 normal GI normal to inspection, nondistended, normoactive bowel sounds Back/Spine no CVA tenderness Cervical Spine: Negative for cervical spine tenderness Thoracic Spine / Upper Back: Negative for thoracic spinal tenderness Lumbar Spine / Lower Back: Negative for lumbar spinal tenderness Extremity normal to inspection General Extremety ED: Yes edema; Negative for deformity General Extremity: edema; Negative for deformity Neuro oriented x3, No CN's II-XII intact bilaterally and no sensory deficits noted Neuro Narrative: Patient has mild asymmetry with smile with facial droop noted on the left. Attempt to sit up is difficult and patient is wobbly. Bear Coma Scale: other (NIH score is 1 for slight facial droop on the left.) Sensorium / Orientation: alert Speech: speech normal Motor Exam: Negative for strength 5/5 throughout Psych mental status grossly normal Skin Lesions: No no lesions Rashes: no rashes STROKE Vital Signs/Narrative: Vital Signs Temp Pulse Resp BP Pulse Ox 12/22/20 14:00 68 16 122/63 H 97 12/22/20 13:45 63 16 125/64 H 98 12/22/20 13:30 68 18 137/67 H 97 12/22/20 13:15 61 18 113/66 99 12/22/20 13:00 62 16 122/65 H 97 12/22/20 12:50 66 16 122/60 H 98 12/22/20 12:37 68 18 114/60 98 12/22/20 12:10 68 20 H 93/62 97 12/22/20 11:43 98.4 F 67 18 94/53 L 99 MDM MDM MDM Narrative Medical decision making narrative: Patient's blood pressure is low. This may be because of his change in mental status and difficulty with balance. Since he complained of double vision will work-up for posterior circulatory stroke. CT of the head was obtained to evaluate for bleed since he is on anticoagulant with fall yesterday. Appropriate blood work was obtained to assess for white count, H&H and renal function. Stroke team was called. Neurologist that if there is no metabolic explanation that patient should have MRI. Patient's blood pressure improved without therapy. Doubt CO2 retention as cause and CO2 was normal on basic metabolic panel. Work- up is unremarkable other than mild anemia. Since patient had change in mental status recent fall trouble with balance and no obvious cause will contact hospitalist for stroke rule out. Lab Data Attestation: I reviewed the patient's lab results. Labs: Laboratory Results - last 24 hr 12/22/20 12/22/20 12/22/20 12:12 12:15 12:15 WBC 8.5 RBC 4.17 L Hgb 12.3 L Hct 39.5 L MCV 94.7 H MCH 29.5 MCHC 31.1 L RDW Std Deviation 49.1 H RDW Coeff of Delisa 14.1 Plt Count 194 MPV 9.7 Immature Gran % (Auto) 0.500 Neut % (Auto) 76.3 H Lymph % (Auto) 14.0 L [place] % (Auto) 6.3 Eos % (Auto) 2.2 Baso % (Auto) 0.7 Absolute Neuts (auto) 6.5 Absolute Lymphs (auto) 1.19 Nucleated RBC % 0 PT 17.0 H INR 1.5 APTT 31.7 Sodium Potassium Chloride Carbon Dioxide Anion Gap BUN Creatinine Estim Creat Clear Calc Est GFR (MDRD) Af Amer Est GFR (MDRD) Non-Af BUN/Creatinine Ratio Glucose Calcium Troponin I POC Glucose 133 H 12/22/20 12:15 WBC RBC Hgb Hct MCV MCH MCHC RDW Std Deviation RDW Coeff of Delisa Plt Count MPV Immature Gran % (Auto) Neut % (Auto) Lymph % (Auto) [place] % (Auto) Eos % (Auto) Baso % (Auto) Absolute Neuts (auto) Absolute Lymphs (auto) Nucleated RBC % PT INR APTT Sodium 140 Potassium 3.8 Chloride 107 Carbon Dioxide 28.0 Anion Gap 5 BUN 12 Creatinine 1.36 H Estim Creat Clear Calc 45.48 Est GFR (MDRD) Af Amer 65 Est GFR (MDRD) Non-Af 54 L BUN/Creatinine Ratio 8.8 L Glucose 121 H Calcium 9.0 Troponin I < 0.015 POC Glucose Blood work is remarkable for mild anemia and creatinine of 1.36. Radiography Diagnostic Testing: Radiology Impression Brain CT 12/22/20 12:10 IMPRESSION: Chronic involutional changes of the brain. Electronically Signed: Sher Gomez MD at 12:33 EDT Tel , Service support , ADDENDUM: 12/22/20 1241 IMPRESSION: Chronic involutional changes of the brain. N.B. : The above information has been verbally conveyed by Sher Gomez MD to [facility] mo on 12/22/2020 12:34:43 (ET). 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 Calcific plaque at the origin of the left internal carotid artery causing less than 50% stenosis. N.B. : The above information has been verbally conveyed by Luis Fontaine MD to Kadeem Walton on 12/22/2020 12:45:03 (ET). 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 Calcific plaque at the origin of the left internal carotid artery causing less than 50% stenosis. N.B. : The above information has been verbally conveyed by Luis Fontaine MD to Kadeem Walton on 12/22/2020 12:45:03 (ET). Electronically Signed: Luis Fontaine MD at 12:46 EDT , Service support , Chest X-Ray 12/22/20 13:20 IMPRESSION: Normal x-ray examination of the chest. Electronically Signed: Sher Gomez MD at 13:49 EDT Tel , Service support , There is evidence of calcified plaque right internal carotid that is 50 to 69% which is not significant. There is 50% stenosis noted on the left. This is nonsignificant as well. EKG Initial EKG: Attestation: I personally reviewed and interpreted this EKG as follows: Interpretation: Sinus Rhythm Comments: Normal sinus rhythm with ventricular rate of 65. LA interval is 202 ms. Cures duration 92 ms. QT duration 422 ms. [place] is normal. There is nonspecific changes noted as well as artifact. Stroke Documentation Questions Stroke Team Activated: Yes Reviewed Inclusion/Exclusion criteria: Yes Was Patient considered for Endovascular Intervention?: No IV Alteplase (t-PA) Administered: No No contraindications for IV Alteplase (t-PA) administration.: Yes Alteplase (t-PA) risks, benefits, alternative discussed: No Discharge Plan Dx/Rx/DC Orders Clinical Impression: AMS (altered mental status), Transient hypotension, Facial droop Disposition Disposition: Acute Care Hospital [facility]
--- NOTE | 2020-12-22 14:50 | PCM.HP.STD ---
[facility] - [facility] General Date of Admission: 12/22/20 Chief Complaint: Fall, confusion. [facility] Narrative KEN ALFRED, is a 80 M with multiple medical comorbidities as mentioned above presented to the emergency room because of fall and confusion. According to the patient's , patient was sitting on a chair this morning, was transiently confused and he had difficulty with ambulation. mentioned that he was tending to fall to the left side. called for help and there was a physical therapist at their neighbor's house who checked patient's blood pressure and heart rate and he was found to have low blood pressure, low heart rate, low oxygen according to the patient's . Patient denied any dizziness or lightheadedness during that time. Patient complained of being dizzy and having problem with balance and also complained of double vision. He denied focal arm or leg weakness. He was started on Eliquis recently for left lower extremity DVT. He has history of CAD status post stents and he has been on aspirin and losartan. He had a history of hypothyroidism and he has been on levothyroxine. In the emergency department, initial blood pressure was low but improved without treatment. Other vital signs were stable, was afebrile. Routine blood work was remarkable for creatinine of 1.36, otherwise normal. EKG revealed normal sinus rhythm without evidence of acute ischemic changes. Troponin was negative. CT scan brain showed no acute infarct or hemorrhage. CTA of the head and neck revealed 50-69 narrowing of the origin of the right internal carotid artery, less than 50% stenosis of the left internal carotid artery. Chest x-ray showed no acute findings. Patient is being admitted for possible TIA versus acute stroke. 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 Home Medications losartan 25 mg PO DAILY 10/24/19 [History Last Taken 12/22/20] atorvastatin 20 mg PO DAILY 12/25/19 [History Last Taken 12/21/20] aspirin 81 mg PO DAILY 01/16/20 [History Last Taken 12/22/20] tamsulosin 0.8 mg PO QHS 01/16/20 [History Last Taken 12/21/20] carbidopa 25 mg-levodopa 100 mg tablet 1.5 tab PO TID tab 07/24/20 [History Last Taken 12/22/20] cholecalciferol (vitamin D3) 2,000 unit PO DAILY 09/08/20 [History Last Taken 12/22/20] hydrocortisone 20 mg PO BREAKFAST 09/08/20 [History Last Taken 12/22/20] levothyroxine 100 mcg PO DAILY 09/08/20 [History Last Taken 12/22/20] acetaminophen 1,000 mg PO Q6H PRN PRN tab 09/25/20 [Rx Last Taken Unknown] escitalopram oxalate 10 mg PO DAILY tab 09/25/20 [Rx Last Taken 12/22/20] polysaccharide iron complex 150 mg PO DAILYCM #30 cap 09/25/20 [Rx Last Taken 12/21/20] apixaban [Eliquis] 5 mg PO BID 12/22/20 [History Last Taken 12/22/20] hydrocortisone 10 mg PO DINNER 12/22/20 [History Last Taken 12/21/20] omega 3-fnm-ohu-fish oil [Fish Oil] 1,200 cap PO DAILY 12/22/20 [History Last Taken 12/22/20] Allergy/AdvReac Type Severity Reaction Status Date / Time No Known Allergies Allergy Verified 12/22/20 11:47 Family History Mother Skin cancer Cancer Skin and other unknown Sister Cancer Unknown type Surgical History History of back surgery History of cholecystectomy (~12/2019) Hx of colonoscopy Hx of elbow surgery Hx of heart artery stent Hx of left breast biopsy Social History Smoking Status: Never smoker second hand exposure: No alcohol intake: current alcohol intake frequency: holidays/special occasions only substance use type: does not use caffeine: Yes what type of physical activity do you participate in: none frequency: does not exercise ROS Constitutional Constitutional: Denies anorexia, chills, fatigue, fever(s) or malaise Eyes Eyes: Reports double vision; Denies blurry vision, change in eye color, change in vision or eye pain ENT HEENT: Denies ear pain, epistaxis, headache(s), nasal congestion, post nasal drip or sore throat Cardiovascular Cardiovascular: Denies chest pain, dyspnea on exertion, edema, lightheadedness, orthopnea, palpitations, paroxysmal nocturnal dyspnea or syncope Respiratory/Chest Respiratory/Chest: Denies cough, dyspnea, hemoptysis, productive cough, shortness of breath at rest, shortness of breath with exertion or wheezing Gastrointestinal Gastrointestinal: Denies abdominal pain, constipation, diarrhea, hematemesis, hematochezia, melena, nausea or vomiting Genitourinary Genitourinary: Denies burning urination, dysuria, hematuria, urinary hesitancy or urinary urgency Musculoskeletal Musculoskeletal: Denies arthralgias, back pain, joint pain, joint swelling, myalgias or neck pain Neurologic Neurologic: Reports confusion; Denies dizziness, focal weakness, headache(s), numbness, paresthesias, seizures, tingling or tremor(s) Psychiatric Psychiatric: Denies anxiety, depression, homicidal ideation or suicidal ideation Endocrine Endocrinology: Denies change in body appearance, cold intolerance, heat intolerance, polydipsia or polyuria Hematologic/Lymphatic Hematologic/Lymphatic: Reports other; Denies easy bleeding, easy bruising or lymphadenopathy Allergic/Immunologic Allergic/Immunologic: Denies itchy eyes, rhinitis, throat swelling, tongue swelling, hives, urticaria or wheezing Vital Signs Vital Signs Vital Signs: 12/22/20 11:43 12/22/20 11:47 12/22/20 12:10 Temperature 98.4 F Temperature Source Oral Pulse Rate 67 68 Respiratory Rate 18 20 H Respiratory Effort Normal Respiratory Depth Normal Respiratory Pattern Normal Blood Pressure 94/53 L 93/62 Blood Pressure Mean 66 72 Pulse Ox 99 97 Oxygen Delivery Method Room Air Room Air Room Air 12/22/20 12:37 12/22/20 12:50 12/22/20 13:00 Temperature Temperature Source Pulse Rate 68 66 62 Respiratory Rate 18 16 16 Respiratory Effort Respiratory Depth Respiratory Pattern Blood Pressure 114/60 122/60 H 122/65 H Blood Pressure Mean 78 80 84 Pulse Ox 98 98 97 Oxygen Delivery Method Room Air 12/22/20 13:15 12/22/20 13:30 12/22/20 13:45 Temperature Temperature Source Pulse Rate 61 68 63 Respiratory Rate 18 18 16 Respiratory Effort Respiratory Depth Respiratory Pattern Blood Pressure 113/66 137/67 H 125/64 H Blood Pressure Mean 81 90 84 Pulse Ox 99 97 98 Oxygen Delivery Method Room Air Room Air 12/22/20 14:00 12/22/20 14:30 Temperature Temperature Source Pulse Rate 68 61 Respiratory Rate 16 20 H Respiratory Effort Respiratory Depth Respiratory Pattern Blood Pressure 122/63 H 123/67 H Blood Pressure Mean 82 85 Pulse Ox 97 97 Oxygen Delivery Method Room Air Physical Exam Const alert, oriented x3, no apparent distress and no limitations General Appearance: cooperative, comfortable and well kempt HEENT normocephalic, head/scalp atraumatic and moist oral mucous membranes Head and Scalp: normocephalic and atraumatic Eyes PERRL, EOMs intact bilaterally, conjunctivae normal and no scleral icterus General Eye: normal appearance of both eyes Periorbital: periorbital findings normal Neck no lymphadenopathy, supple, no meningeal signs, no JVD and no carotid bruits General: trachea midline Thyroid: thyroid normal Resp normal respiratory effort, normal air movement and clear to auscultation bilaterally Auscultation: Negative for crackles, rales, rhonchi or wheezes Cardio regular rate, regular rhythm, S1 normal heart sound, S2 normal heart sound, no murmurs and no JVD Peripheral Pulses: pulses 2+ throughout GI normal to inspection, nondistended, normoactive bowel sounds, soft to palpation, non-tender and non-distended; Negative for hepatosplenomegaly Auscultation: normoactive bowel sounds Extremity normal to inspection, full ROM and no clubbing, cyanosis or edema Skin no rashes or lesions noted, no wounds and no petechiae Neuro oriented x3, CN's II-XII intact bilaterally and moves all extremities Sensorium / Orientation: alert Speech: speech normal Motor Exam: strength 5/5 throughout Psych mental status grossly normal, affect normal and denies hallucinations Lab / Micro Data Result Diagrams: 12/22/20 12:15 12/22/20 12:15 Labs: Laboratory Results - last 24 hr 12/22/20 12/22/20 12/22/20 12:12 12:15 12:15 WBC 8.5 RBC 4.17 L Hgb 12.3 L Hct 39.5 L MCV 94.7 H MCH 29.5 MCHC 31.1 L RDW Std Deviation 49.1 H RDW Coeff of Delisa 14.1 Plt Count 194 MPV 9.7 Immature Gran % (Auto) 0.500 Neut % (Auto) 76.3 H Lymph % (Auto) 14.0 L Nash % (Auto) 6.3 Eos % (Auto) 2.2 Baso % (Auto) 0.7 Absolute Neuts (auto) 6.5 Absolute Lymphs (auto) 1.19 Nucleated RBC % 0 PT 17.0 H INR 1.5 APTT 31.7 Sodium Potassium Chloride Carbon Dioxide Anion Gap BUN Creatinine Estim Creat Clear Calc Est GFR (MDRD) Af Amer Est GFR (MDRD) Non-Af BUN/Creatinine Ratio Glucose Calcium Troponin I POC Glucose 133 H 12/22/20 12:15 WBC RBC Hgb Hct MCV MCH MCHC RDW Std Deviation RDW Coeff of Dleisa Plt Count MPV Immature Gran % (Auto) Neut % (Auto) Lymph % (Auto) Nash % (Auto) Eos % (Auto) Baso % (Auto) Absolute Neuts (auto) Absolute Lymphs (auto) Nucleated RBC % PT INR APTT Sodium 140 Potassium 3.8 Chloride 107 Carbon Dioxide 28.0 Anion Gap 5 BUN 12 Creatinine 1.36 H Estim Creat Clear Calc 45.48 Est GFR (MDRD) Af Amer 65 Est GFR (MDRD) Non-Af 54 L BUN/Creatinine Ratio 8.8 L Glucose 121 H Calcium 9.0 Troponin I < 0.015 POC Glucose Radiology Impression Brain CT 12/22/20 12:10 IMPRESSION: Chronic involutional changes of the brain. Electronically Signed: Sher Gomez MD at 12:33 EDT Tel , Service support , ADDENDUM: 12/22/20 1241 IMPRESSION: Chronic involutional changes of the brain. N.B. : The above information has been verbally conveyed by Sher Gomez MD to ISSAC mo, on 12/22/2020 12:34:43 (ET). 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 Calcific plaque at the origin of the left internal carotid artery causing less than 50% stenosis. N.B. : The above information has been verbally conveyed by Luis Fontaine MD to Kadeem Walton on 12/22/2020 12:45:03 (ET). 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 Calcific plaque at the origin of the left internal carotid artery causing less than 50% stenosis. N.B. : The above information has been verbally conveyed by Luis Fontaine MD to Kadeem Walton on 12/22/2020 12:45:03 (ET). Electronically Signed: Luis Fontaine MD at 12:46 EDT , Service support , Chest X-Ray 12/22/20 13:20 IMPRESSION: Normal x-ray examination of the chest. Electronically Signed: Sher Gomez MD at 13:49 EDT Tel , Service support , Assessment & Plan Assessment/Plan (1) Diplopia: (2) Ataxia: (3) Memory impairment: (4) Parkinson disease: (5) Hypothyroidism: (6) Benign prostate hyperplasia: (7) Coronary artery disease: (8) Hypertension: (9) Adrenal insufficiency: PLAN: This is a 80 years old male patient presented to the emergency room because of fall, transient confusion, imbalance and diplopia and is being admitted for TIA versus acute stroke work-up. #1 imbalance/ataxia/diplopia/transient confusion: CT scan brain and CTA of the neck reviewed as above. Patient was evaluated by [facility] teleneurology, recommended MRI brain. Plan: Admit to PCU for observation, cardiac monitoring, NIH stroke scale, continue aspirin and statins, continue Eliquis, MRI brain, gentle IV fluids for hydration, Tylenol as needed, Zofran as needed, PT OT evaluation and treatment, repeat CBC and BMP tomorrow morning. #2 transient hypotension: Blood pressure improved in the ED without treatment. Currently, patient glucose is stable, heart rate stable, afebrile, pulse ox is normal on room air. Plan to monitor. #3 recent history of right lower extremity DVT: Continue Eliquis. #4 adrenal insufficiency: Blood pressure improved as above. Continue cortisone tablets for placement. #5 CAD status post stents: EKG reviewed, no acute segment changes. Troponin is negative. Stable, continue home medications. #6 hypertension: Blood pressure stable, continue losartan. #7 hypothyroidism: Continue levothyroxine. #8 benign prostatic hypertrophy: Continue Flomax. #9 CODE STATUS: DNR CCA, no intubation. Discussed with the patient, agreed. #10 DVT prophylaxis: Continue Eliquis. This note was generated with [employer] dictation software. It may contain incorrect words, spelling, and punctuation that were not noted in checking the note before signing. Visit Charges OBSV E&M: 06643 Initial observation care L3
--- NOTE | 2020-12-22 15:10 | CHAPLAIN ---
Type of Pastoral Visit ___ Initial Visit ___ Follow-up Visit ___ On-call Visit ___ General Patient Visit ___ Spiritual Assessment ___ Family Conference ___ Bereavement _x__ Rapid Response ___ Code Blue ___ Other (describe below) Pastoral Care Referral From ___ Patient ___ Family ___ Nurse ___ Physician ___ Supervisor Asbestos Removal ___ Wireless Architect _x__ Other (describe below) Sacrament/Intervention ___ Active listening ___ Anointing ___ Church ___ Bereavement ___ Communion ___ Tiffany exploration ___ ___ Life review _x_ Prayer ___ Reconciliation ___ Sacrament of Sick _x__ Supportive presence ___ Wedding ___ Other (describe below) Pastoral Comments offered support to spouse as she waited for patient to return from [place]; brief introduction to patient when he returned; offer of support and prayer given; prayer requested
--- NOTE | 2020-12-22 18:38 | MRI_ITS ---
STUDY: MRI BRAIN WITHOUT CONTRAST REASON FOR EXAM: Male, 80 years old. Imbalance, double vision TECHNIQUE: Standardized multiplanar fat and water weighted pulse sequences were obtained. COMPARISON: CT of the brain 12/22/2020 MRI 04/09/2019 FINDINGS: Moderate atrophy and mild periventricular white matter ischemic change without mass effect or restricted diffusion.. Normal bilateral basal ganglia. Normal thalami. There is no extra-axial fluid accumulation. Normal flow voids within the major intracranial circulation suggesting patency by spin echo criteria. Empty sella deformity likely of no significance. Normal, infundibular stalk, optic chiasm and hypothalamus. Normal tectal plate and pineal gland. Normal midbrain, marisa and medulla. Normal cerebellum. Normal basal cisterns. Normal bilateral temporal bones. Normal bilateral internal auditory canals. No demonstrated orbital abnormality, within the constraints of a routine brain study. Minor mucosal thickening of the ethmoid air cells.. Normal calvarium and skull base. Normal visualized soft tissue structures. Normal visualized upper cervical spine. MRI/Brain without Contrast IMPRESSION: Moderate atrophy and mild periventricular white matter ischemic change without evidence for acute infarct Electronically Signed: Martín Jonas MD at 22:13 EDT , Service support ,
[2020-12-22] MEDS: 0.9% Normal Saline 1,000 ML 75 ML IV (19:03)
[2020-12-22] MEDS: Atorvastatin Calcium 20 MG Tablet PO (20:38)
[2020-12-22] MEDS: Tamsulosin HCl 0.4 MG Capsule 0.8 MG PO (20:38)
[2020-12-22] MEDS: APIXABAN 5 MG TABLET PO (20:39)
[2020-12-22] MEDS: Carbidopa/Levodopa 25/100 Tablet PO (20:39)
[2020-12-22] MEDS: Hydrocortisone 10 MG Tablet PO (20:39)
[2020-12-23] VITALS (8 sets, daily range): BP systolic 102–157; BP diastolic 54–79; PULSE 57–76; RESP 16–18; TEMP 36.4–37; O2SAT 95–97; BMI 29.3
[2020-12-23] MEDS: Levothyroxine 100 MCG Tablet PO (05:06)
[2020-12-23] MEDS: Carbidopa/Levodopa 25/100 Tablet PO ×2 (05:06→15:39)
[2020-12-23 06:31] LABS: Absolute Lymphocyte Count 1.64 X10^3/uL (0.83-4.51); Absolute Neutrophil Count 4.1 X10^3/uL (2.0-7.7); Basophil# 0.05 X10^3/uL; Basophil% 0.8 % (0-1); Eosinophil# 0.26 X10^3/uL; Hematocrit 35.2 % (40-54); Hemoglobin 11.2 g/dL (13.0-16.5); Lymphocyte # 1.64 X10^3/ul (0.83-4.51); Lymphocyte % 25.4 % (19-41); Mean Corp Hgb Conc 31.8 g/dL (32-36); Mean Corpuscular Hgb 29.4 pg (27.0-32.0); Mean Corpuscular Volume 92.4 fL (80-94); Mean Platelet Vol. 9.8 fl (6.2-12.0); Monocyte# 0.41 X10^3/uL; Monocyte% 6.4 % (0-10); NRBC Flagged by Analyzer 0 % (0-5); Neutrophil # 4.07 X10^3/uL (2.7-7.7); Neutrophil % 63.1 % (47-70); Platelet Count 186 K/mm3 (150-450); RBC Distribution Width CV 13.9 % (11.6-14.6); RBC Distribution Width SD 47.9 fl (35.1-43.9); Red Blood Count 3.81 M/mm3 (4.6-6.2); White Blood Count 6.5 K/mm3 (4.4-11.0)
[2020-12-23 06:41] LABS: International Normalized Ratio 1.3; Prothrombin Time (Protime)PT. 15.2 SECONDS (11.7-14.9)
[2020-12-23 06:57] LABS: Anion Gap 6 (5-15); BUN 14 mg/dL (7-18); BUN/Creat Ratio 13.3 RATIO (10-20); Calcium,Total 8.5 mg/dL (8.5-10.1); Chloride 107 mmol/L (98-107); Creatinine, Serum 1.05 mg/dL (0.70-1.30); EST Glomerular Filtration Rate 72 mL/min (>60); Est Glom Filt Rate - Afr Amer 88 mL/min (>60); Glucose 102 mg/dL (74-106); Potassium 3.9 mmol/L (3.5-5.1); Sodium Level 139 mmol/L (136-145)
[2020-12-23] MEDS: Hydrocortisone 10 MG Tablet 20 MG PO (09:11)
[2020-12-23] MEDS: Aspirin E.C. 81 MG Tablet PO (09:12)
[2020-12-23] MEDS: Iron Polysaccharide Complex 150 MG CAPSULE PO (09:12)
[2020-12-23] MEDS: Escitalopram Oxalate 10 MG Tablet PO (09:12)
[2020-12-23] MEDS: Losartan Potassium 25 MG Tablet PO (09:12)
[2020-12-23] MEDS: APIXABAN 5 MG TABLET PO (09:12)
--- NOTE | 2020-12-23 13:40 | DS.PCM_ITS ---
Providers Date of Admission: 12/22/20 Primary Care Physician: Dr. Gianluca Trevino MD Reason For Visit: IMBALANCE, DIPLOPIA, TRANSIENT CONFUSION Diagnosis Discharge Diagnosis (1) Diplopia: Status: Acute Code(s): H53.2 - Diplopia (2) Ataxia: Status: Acute Code(s): R27.0 - Ataxia, unspecified (3) Memory impairment: Status: Chronic Code(s): R41.3 - Other amnesia (4) Parkinson disease: Status: Chronic Code(s): G20 - Parkinson's disease (5) Hypothyroidism: Status: Chronic Code(s): E03.9 - Hypothyroidism, unspecified (6) Benign prostate hyperplasia: Status: Chronic Code(s): N40.0 - Benign prostatic hyperplasia without lower urinary tract symptoms (7) Coronary artery disease: Status: Chronic Code(s): I25.10 - Atherosclerotic heart disease of [place] coronary artery without angina pectoris (8) Hypertension: Status: Chronic Code(s): I10 - Essential (primary) hypertension (9) Adrenal insufficiency: Status: Chronic Code(s): E27.40 - Unspecified adrenocortical insufficiency Medications at Discharge Home Medications losartan 25 mg PO DAILY 10/24/19 atorvastatin 20 mg PO DAILY 12/25/19 aspirin 81 mg PO DAILY 01/16/20 tamsulosin 0.8 mg PO QHS 01/16/20 carbidopa 25 mg-levodopa 100 mg tablet 1.5 tab PO TID tab 07/24/20 cholecalciferol (vitamin D3) 2,000 unit PO DAILY 09/08/20 hydrocortisone 20 mg PO BREAKFAST 09/08/20 levothyroxine 100 mcg PO DAILY 09/08/20 acetaminophen 1,000 mg PO Q6H PRN PRN tab 09/25/20 escitalopram oxalate 10 mg PO DAILY tab 09/25/20 polysaccharide iron complex 150 mg PO DAILYCM #30 cap 09/25/20 Eliquis 5 mg PO BID 12/22/20 hydrocortisone 10 mg PO DINNER 12/22/20 omega 5-jxt-zqr-fish oil [Fish Oil] 1,200 cap PO DAILY 12/22/20 ABG / Lab / Microbiology Data Result Diagrams: 12/23/20 06:00 12/23/20 06:00 Laboratory: Laboratory Results - last 24 hr 12/23/20 12/23/20 12/23/20 06:00 06:00 06:00 WBC 6.5 RBC 3.81 L Hgb 11.2 L Hct 35.2 L MCV 92.4 MCH 29.4 MCHC 31.8 L RDW Std Deviation 47.9 H RDW Coeff of Delisa 13.9 Plt Count 186 MPV 9.8 Immature Gran % (Auto) 0.300 Neut % (Auto) 63.1 Lymph % (Auto) 25.4 [place] % (Auto) 6.4 Eos % (Auto) 4.0 Baso % (Auto) 0.8 Absolute Neuts (auto) 4.1 Absolute Lymphs (auto) 1.64 Nucleated RBC % 0 PT 15.2 H INR 1.3 Sodium 139 Potassium 3.9 Chloride 107 Carbon Dioxide 26.0 Anion Gap 6 BUN 14 Creatinine 1.05 Estim Creat Clear Calc 58.90 Est GFR (MDRD) Af Amer 88 Est GFR (MDRD) Non-Af 72 BUN/Creatinine Ratio 13.3 Glucose 102 Calcium 8.5 Radiography Diagnostic Testing: Radiology Impression Chest X-Ray 12/22/20 13:20 IMPRESSION: Normal x-ray examination of the chest. Electronically Signed: Sher Gomez MD at 13:49 EDT Tel , Service support , Brain MRI 12/22/20 18:38 IMPRESSION: Moderate atrophy and mild periventricular white matter ischemic change without evidence for acute infarct Electronically Signed: Martín Jonas MD at 22:13 EDT , Service support , D/C Instructions Discharge Diet: No restrictions Discharge Activity: Return to Normal Activity Discharge Plan Admission Admit Date/Time: 12/22/20 14:47 Primary Reason for Your Visit: Confusion Attending Provider: Roro Mccoy Primary Care Provider: Gianluca Trevino Instructions Additional Instructions / Restrictions: Continue to take all your medications as prescribed. Follow-up with your PCP within 2 weeks. Discharge Orders/Prescriptions Prescriptions: Continued carbidopa-levodopa 25-100 mg tablet 1.5 tab PO TID RF: 0 losartan 25 MG tablet 25 mg PO DAILY RF: 0 atorvastatin 20 MG tablet 20 mg PO DAILY RF: 0 aspirin 81 MG tablet,delayed release (DR/EC) 81 mg PO DAILY RF: 0 tamsulosin 0.4 MG capsule 0.8 mg PO QHS RF: 0 cholecalciferol (vitamin D3) 50 MCG capsule 2,000 unit PO DAILY RF: 0 levothyroxine 100 MCG tablet 100 mcg PO DAILY RF: 0 hydrocortisone 10 MG tablet 20 mg PO BREAKFAST RF: 0 polysaccharide iron complex 150 MG capsule 150 mg PO DAILYCM Qty: 30 RF: 0 acetaminophen 500 MG tablet 1,000 mg PO Q6H PRN PRN (Reason: Pain Score 1-5) RF: 0 escitalopram oxalate 10 MG tablet 10 mg PO DAILY RF: 0 hydrocortisone 10 mg tablet 10 mg PO DINNER RF: 0 omega 2-oqn-dtz-fish oil [Fish Oil] 1,200 (144-216) mg Capsule 1,200 cap PO DAILY RF: 0 Eliquis 5 mg tablet 5 mg PO BID RF: 0 Referrals / Follow Up: Gianluca Trevino MD [Primary Care Provider] - Within 2 Weeks Disposition Disposition (needs filled in before D/C Order can be placed): Home, self care
--- NOTE | 2020-12-23 13:49 | PHA.DC.MR ---
Pharmacy Service has performed discharge medication reconciliation for this patient. The patient's discharge medication list was reviewed for discrepancies and discrepancies were resolved. Home Medications losartan 25 mg PO DAILY 10/24/19 atorvastatin 20 mg PO DAILY 12/25/19 aspirin 81 mg PO DAILY 01/16/20 tamsulosin 0.8 mg PO QHS 01/16/20 carbidopa 25 mg-levodopa 100 mg tablet 1.5 tab PO TID tab 07/24/20 cholecalciferol (vitamin D3) 2,000 unit PO DAILY 09/08/20 hydrocortisone 20 mg PO BREAKFAST 09/08/20 levothyroxine 100 mcg PO DAILY 09/08/20 acetaminophen 1,000 mg PO Q6H PRN PRN tab 09/25/20 escitalopram oxalate 10 mg PO DAILY tab 09/25/20 polysaccharide iron complex 150 mg PO DAILYCM #30 cap 09/25/20 Eliquis 5 mg PO BID 12/22/20 hydrocortisone 10 mg PO DINNER 12/22/20 omega 2-ljp-rcf-fish oil [Fish Oil] 1,200 cap PO DAILY 12/22/20
--- NOTE | 2020-12-23 14:44 | PCM.DC ---
Discharge Instructions Diet Discharge Diet: No restrictions Activity Discharge Activity: Return to Normal Activity Follow Up Care Test Results: Test results from this visit will be discussed in further detail at your follow-up appointment, if applicable. Discharge Plan Admission Admit Date/Time: 12/22/20 14:47 Primary Reason for Your Visit: Confusion Attending Provider: Roro Mccoy Primary Care Provider: Gianluca Trevino Instructions Additional Instructions / Restrictions: Continue to take all your medications as prescribed. Follow-up with your PCP within 2 weeks. Discharge Orders/Prescriptions Prescriptions: Continued carbidopa-levodopa 25-100 mg tablet 1.5 tab PO TID RF: 0 losartan 25 MG tablet 25 mg PO DAILY RF: 0 atorvastatin 20 MG tablet 20 mg PO DAILY RF: 0 aspirin 81 MG tablet,delayed release (DR/EC) 81 mg PO DAILY RF: 0 tamsulosin 0.4 MG capsule 0.8 mg PO QHS RF: 0 cholecalciferol (vitamin D3) 50 MCG capsule 2,000 unit PO DAILY RF: 0 levothyroxine 100 MCG tablet 100 mcg PO DAILY RF: 0 hydrocortisone 10 MG tablet 20 mg PO BREAKFAST RF: 0 polysaccharide iron complex 150 MG capsule 150 mg PO DAILYCM Qty: 30 RF: 0 acetaminophen 500 MG tablet 1,000 mg PO Q6H PRN PRN (Reason: Pain Score 1-5) RF: 0 escitalopram oxalate 10 MG tablet 10 mg PO DAILY RF: 0 hydrocortisone 10 mg tablet 10 mg PO DINNER RF: 0 omega 7-rit-bbz-fish oil [Fish Oil] 1,200 (144-216) mg Capsule 1,200 cap PO DAILY RF: 0 Eliquis 5 mg tablet 5 mg PO BID RF: 0 Referrals / Follow Up: Gianluca Trevino MD [Primary Care Provider] - Within 2 Weeks Disposition Disposition (needs filled in before D/C Order can be placed): Home Health Service
--- NOTE | 2020-12-23 14:58 | CASEMGMT ---
Addendum entered by Jacinda Naqvi 12/23/20 15:11: Recieved tc back from intake [facility] is able to accept pt. Pt is aware. Original Note: RN NATE notified from therapy that pt needs C PT and OT. DAVID SULLIVAN in to pt room. Patient was provided a list of [facility] providers including quality and resource use data and consistent with the patient?s preferred geographic region, medical needs, and insurance network. The patient?s preferred provider is [facility] as he has had them in the past. TC to Intake [place] and referral given. Awaiting call back for acceptance.
[2020-12-23] MEDS: Acetaminophen 325 MG Tablet 650 MG PO (15:44)
--- NOTE | 2020-12-23 18:14 | DS.PCM_ITS ---
Providers Date of Admission: 12/22/20 Date of Discharge: 12/23/20 Primary Care Physician: Dr. Gianluca Trevino MD Reason For Visit: IMBALANCE, DIPLOPIA, TRANSIENT CONFUSION Diagnosis Discharge Diagnosis (1) Diplopia: Status: Resolved Code(s): H53.2 - Diplopia (2) Ataxia: Status: Resolved Code(s): R27.0 - Ataxia, unspecified (3) Memory impairment: Status: Chronic Code(s): R41.3 - Other amnesia (4) Parkinson disease: Status: Chronic Code(s): G20 - Parkinson's disease (5) Hypothyroidism: Status: Chronic Code(s): E03.9 - Hypothyroidism, unspecified (6) Benign prostate hyperplasia: Status: Chronic Code(s): N40.0 - Benign prostatic hyperplasia without lower urinary tract symptoms (7) Coronary artery disease: Status: Chronic Code(s): I25.10 - Atherosclerotic heart disease of [place] coronary artery without angina pectoris (8) Hypertension: Status: Chronic Code(s): I10 - Essential (primary) hypertension (9) Adrenal insufficiency: Status: Chronic Code(s): E27.40 - Unspecified adrenocortical insufficiency Medications at Discharge Home Medications losartan 25 mg PO DAILY 10/24/19 atorvastatin 20 mg PO DAILY 12/25/19 aspirin 81 mg PO DAILY 01/16/20 tamsulosin 0.8 mg PO QHS 01/16/20 carbidopa 25 mg-levodopa 100 mg tablet 1.5 tab PO TID tab 07/24/20 cholecalciferol (vitamin D3) 2,000 unit PO DAILY 09/08/20 hydrocortisone 20 mg PO BREAKFAST 09/08/20 levothyroxine 100 mcg PO DAILY 09/08/20 acetaminophen 1,000 mg PO Q6H PRN PRN tab 09/25/20 escitalopram oxalate 10 mg PO DAILY tab 09/25/20 polysaccharide iron complex 150 mg PO DAILYCM #30 cap 09/25/20 Eliquis 5 mg PO BID 12/22/20 hydrocortisone 10 mg PO DINNER 12/22/20 omega 5-fqz-xos-fish oil [Fish Oil] 1,200 cap PO DAILY 12/22/20 Hospital Course Operations None Procedures None Summary of Care Provided Minutes Spent on Discharge: 40 Hospital Course: 80-year-old with past medical history of multiple comorbidities including Parkinson's disease, adrenal insufficiency who comes in with complaints of confusion and fall. Patient was said to be sitting in a chair, he had had his breakfast, he was later found to be transiently confused and had difficulty ambulating. Patient was found to be leaning more to the left. The called for help and there was a physical therapist at the [facility] who checked the patient's blood pressure and heart rate and found it to be low as well as he was hypoxic. Patient is on Eliquis for recent lower extremity DVT. He was admitted to the telemetry floor. CT of the brain was unremarkable. CTA of the head and neck revealed 50 to 69% narrowing of the origin of the right internal carotid artery, less than 50% stenosis of the left internal carotid artery. Chest x-ray was unremarkable. He was worked up for TIA versus acute stroke. MRI brain was unremarkable. Patient was seen by PT and OT and recommended for discharge with home health. He will be continued on his Eliquis as well as aspirin. He will follow-up with his primary care doctor within 2 weeks. ABG / Lab / Microbiology Data Result Diagrams: 12/23/20 06:00 12/23/20 06:00 Laboratory: Laboratory Results - last 24 hr 12/23/20 12/23/20 12/23/20 06:00 06:00 06:00 WBC 6.5 RBC 3.81 L Hgb 11.2 L Hct 35.2 L MCV 92.4 MCH 29.4 MCHC 31.8 L RDW Std Deviation 47.9 H RDW Coeff of Delisa 13.9 Plt Count 186 MPV 9.8 Immature Gran % (Auto) 0.300 Neut % (Auto) 63.1 Lymph % (Auto) 25.4 Davis % (Auto) 6.4 Eos % (Auto) 4.0 Baso % (Auto) 0.8 Absolute Neuts (auto) 4.1 Absolute Lymphs (auto) 1.64 Nucleated RBC % 0 PT 15.2 H INR 1.3 Sodium 139 Potassium 3.9 Chloride 107 Carbon Dioxide 26.0 Anion Gap 6 BUN 14 Creatinine 1.05 Estim Creat Clear Calc 58.90 Est GFR (MDRD) Af Amer 88 Est GFR (MDRD) Non-Af 72 BUN/Creatinine Ratio 13.3 Glucose 102 Calcium 8.5 Radiography Diagnostic Testing: Radiology Impression Brain MRI 12/22/20 18:38 IMPRESSION: Moderate atrophy and mild periventricular white matter ischemic change without evidence for acute infarct Electronically Signed: Martín Jonas MD at 22:13 EDT , Service support , D/C Instructions Discharge Diet: No restrictions Discharge Activity: Return to Normal Activity Meaningful Use Info Meaningful Use Diagnoses (Choose all that apply): None applicable Discharge Plan Admission Admit Date/Time: 12/22/20 14:47 Primary Reason for Your Visit: Confusion Attending Provider: Roro Mccoy Primary Care Provider: Gianluca Trevino Instructions Additional Instructions / Restrictions: Patient Problems: Altered Health Status related to Hospitalization Patient Goals: *Optimal Level of Health *Keep Appointments *Medication Compliance *Remain SafeContinue to take all your medications as prescribed. Follow-up with your PCP within 2 weeks. Discharge Orders/Prescriptions Prescriptions: Continued carbidopa-levodopa 25-100 mg tablet 1.5 tab PO TID RF: 0 losartan 25 MG tablet 25 mg PO DAILY RF: 0 atorvastatin 20 MG tablet 20 mg PO DAILY RF: 0 aspirin 81 MG tablet,delayed release (DR/EC) 81 mg PO DAILY RF: 0 tamsulosin 0.4 MG capsule 0.8 mg PO QHS RF: 0 cholecalciferol (vitamin D3) 50 MCG capsule 2,000 unit PO DAILY RF: 0 levothyroxine 100 MCG tablet 100 mcg PO DAILY RF: 0 hydrocortisone 10 MG tablet 20 mg PO BREAKFAST RF: 0 polysaccharide iron complex 150 MG capsule 150 mg PO DAILYCM Qty: 30 RF: 0 acetaminophen 500 MG tablet 1,000 mg PO Q6H PRN PRN (Reason: Pain Score 1-5) RF: 0 escitalopram oxalate 10 MG tablet 10 mg PO DAILY RF: 0 hydrocortisone 10 mg tablet 10 mg PO DINNER RF: 0 omega 2-tqi-ibk-fish oil [Fish Oil] 1,200 (144-216) mg Capsule 1,200 cap PO DAILY RF: 0 Eliquis 5 mg tablet 5 mg PO BID RF: 0 Referrals / Follow Up: Gianluca Trevino MD [Primary Care Provider] - Within 2 Weeks Disposition Disposition (needs filled in before D/C Order can be placed): Home Health Service Visit Charges OBSV E&M: 80279 Observation care discharge
== END 2020-12-23 13:33 | disposition home health service (06) ==
LOC: ED 14:29 → PCU 14:59
PROVIDERS: Admitting Provider Hospitalist; Emergency Provider Emergency Medicine; PCP Family Medicine; Visit Provider Internal Medicine
DX: I65.23 Occlusion and stenosis of bilateral carotid arteries (principal); R27.0 Ataxia, unspecified; G20 Parkinson's disease; I25.10 Atherosclerotic heart disease of native coronary artery without angina pectoris; E03.9 Hypothyroidism, unspecified; N40.0 Benign prostatic hyperplasia without lower urinary tract symptoms; M19.90 Unspecified osteoarthritis, unspecified site; I25.2 Old myocardial infarction; I10 Essential (primary) hypertension; I95.9 Hypotension, unspecified; I82.401 Acute embolism and thrombosis of unspecified deep veins of right lower extremity; E27.40 Unspecified adrenocortical insufficiency; R29.701 NIHSS score 1; Z79.899 Other long term (current) drug therapy; Z79.82 Long term (current) use of aspirin; Z79.01 Long term (current) use of anticoagulants; R41.3 Other amnesia
CPT/HCPCS: 36415; 70450; 70496; 70498; 70551; 71045; 80048; 82962; 84484; 85025; 85610; 85730; 93005; 96360; 96361; 97162; 97166; 99218; 99285; J7030; Q9967; A4216; G0378

== ENCOUNTER 2021-02-11 11:17 | Emergency (ER) | payer MEDICARE, SELFPAY ==
[2020-12-23 15:53] VITALS: BMI 29.3
[2021-02-11 11:18] VITALS: BP 124/70; PULSE 57; RESP 18; TEMP 36.4; O2SAT 97; BMI 31.5
--- NOTE | 2021-02-11 11:30 | EDS_ITS ---
HPI History of Present Illness Chief Complaint: Fall Detail of Chief Complaint: Fall with head injury that occurred this morning Informant: patient Narrative Narrative: Patient states that he just gotten some water when he tried a walk backwards to sit in his wheelchair and He remembers he was on the floor. states she thinks he fell onto an I will statue. Patient sustained wounds to the top of his head. No loss of consciousness. Patient is on Eliquis for history of DVT. He denies neck pain, chest pain, or abdominal pain. Denies any other injuries. Patient is up-to-date on tetanus. 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 Home Medications losartan 25 mg PO DAILY 10/24/19 [History Last Taken 12/22/20] atorvastatin 20 mg PO DAILY 12/25/19 [History Last Taken 12/21/20] aspirin 81 mg PO DAILY 01/16/20 [History Last Taken 12/22/20] tamsulosin 0.8 mg PO QHS 01/16/20 [History Last Taken 12/21/20] carbidopa 25 mg-levodopa 100 mg tablet 1.5 tab PO TID tab 07/24/20 [History Last Taken 12/22/20] cholecalciferol (vitamin D3) 2,000 unit PO DAILY 09/08/20 [History Last Taken 12/22/20] hydrocortisone 20 mg PO BREAKFAST 09/08/20 [History Last Taken 12/22/20] levothyroxine 100 mcg PO DAILY 09/08/20 [History Last Taken 12/22/20] acetaminophen 1,000 mg PO Q6H PRN PRN tab 09/25/20 [Rx Last Taken Unknown] escitalopram oxalate 10 mg PO DAILY tab 09/25/20 [Rx Last Taken 12/22/20] polysaccharide iron complex 150 mg PO DAILYCM #30 cap 09/25/20 [Rx Last Taken 0 12/21/20] Eliquis 5 mg PO BID 12/22/20 [History Last Taken 12/22/20] hydrocortisone 10 mg PO DINNER 12/22/20 [History Last Taken 12/21/20] omega 6-uxk-lgm-fish oil [Fish Oil] 1,200 cap PO DAILY 12/22/20 [History Last Taken 12/22/20] Allergy/AdvReac Type Severity Reaction Status Date / Time No Known Allergies Allergy Verified 02/11/21 11:17 Family History Mother Skin cancer Cancer Skin and other unknown Sister Cancer Unknown type Surgical History History of back surgery History of cholecystectomy (~12/2019) Hx of colonoscopy Hx of elbow surgery Hx of heart artery stent Hx of left breast biopsy Social History Smoking Status: Never smoker second hand exposure: No alcohol intake: current alcohol intake frequency: holidays/special occasions only substance use type: does not use caffeine: Yes what type of physical activity do you participate in: none frequency: does not exercise ROS ROS ED Constitutional Constitutional ED: Reports systems reviewed and no addt'l complaints, except as documented; Denies body ache(s), change in weight or chills Eyes Eyes: Reports other Details: Scalp lacerations ; Denies acute decrease in peripheral vision, change in vision, double vision or loss of vision ENT ENT ED: Reports none; Denies ear pain, lip swelling, loss taste/smell, neck pain, otalgia or sore throat Cardiovascular Cardiovascular: Reports none; Denies abdominal pain, chest pain with activity, leg edema, lightheadedness, palpitations, rapid heart rate or syncope Respiratory/Chest Respiratory/Chest: Reports none; Denies change in mental status, dry cough, dyspnea, hemoptysis, shortness of breath at rest or shortness of breath with exertion Gastrointestinal Gastrointestinal: Reports none; Denies abdominal pain, change in stool character, diarrhea, hematemesis, hematochezia, melena, rectal bleeding or vomiting Genitourinary Genitourinary ED: Reports none; Denies abdominal discomfort, anuria, dysuria, genital pain or polyuria Musculoskeletal Musculoskeletal: Reports none; Denies arthralgias, back pain, difficulty walking, extremity pain, muscle weakness or myalgias Integumentary Reports none; Denies abscess or rash Neurologic Neurologic: Reports none and headache(s); Denies abnormal gait, confusion, focal weakness, frequent falls, loss of vision, numbness, paresthesias, radicular pain, vertigo or weakness Psychiatric Psychiatric: Reports systems reviewed and no addt'l complaints, except as documented and none; Denies behavioral changes, confusion, difficulty concentrating, hallucinations, suicidal ideation, tactile hallucinations or visual hallucinations Endocrine Endocrinology: Denies none, cold intolerance, excessive sweating, fatigue or heat intolerance Hematologic/Lymphatic Hematologic/Lymphatic: Reports none; Denies anemia, easy bleeding or easy bruising Allergic/Immunologic Allergic/Immunologic ED: Denies as per HPI, none, lip swelling, mouth swelling, throat swelling, tongue swelling or hives EXAM Physical Exam Const Vital Signs: 02/11/21 11:18 02/11/21 11:26 Temperature 97.6 F L Temperature Source Temporal Pulse Rate 57 L Respiratory Rate 18 Respiratory Effort Normal Non-Labored Blood Pressure 124/70 H Blood Pressure Mean 88 Pulse Ox 97 Oxygen Delivery Method Room Air Positive well nourished and well developed General Appearance ED: well developed and NAD HEENT Reports TM's clear and moist mucous membranes HEENT Narrative: Patient has a 2.5 cm laceration to the posterior occiput that is irregularly shaped with superficial skin avulsion. No bony step-offs noted. normocephalic and trauma; Negative for atraumatic or tenderness Tympanic Membrane ED: Yes TM's clear Eyes PERRL and EOMs intact bilaterally General Eye ED: Negative for pale conjunctiva or scleral icterus Neck no lymphadenopathy, supple and no JVD General: Negative for tenderness Chest Wall inspection of chest normal and palpation of chest normal Chest: Negative for tenderness Resp normal respiratory effort and clear to auscultation bilaterally Effort and Inspection: Negative for respiratory distress or pain with movement Auscultation: Negative for rhonchi, wheezes or diminished lung sounds Cardio regular rate, regular rhythm, S1 normal heart sound, S2 normal heart sound and no murmurs Peripheral Pulses: pulses 2+ throughout GI normal to inspection, nondistended, normoactive bowel sounds, soft to palpation, non-tender, non-distended and no masses Back/Spine no CVA tenderness and no thoracic nor lumbar tenderness Extremity normal to inspection General Extremety ED: Negative for edema General Extremity: Negative for edema Neuro oriented x3, CN's II-XII intact bilaterally, no sensory deficits noted and gait normal Sensorium / Orientation: awake, alert, oriented to person, oriented to place and oriented to time Motor Exam: strength 5/5 throughout and strength abnormal Psych mental status grossly normal Skin no rashes or lesions noted and no wounds PROC Procedures Lacerations I centimeter scalp laceration repair: Length: 0.98 in Depth: Sub Q Shape: Stellate Prep: Sterile Conditions and Shure-Clens Laceration repair: Lidocaine and Local Irrigated (ml): 50 Number of Sutures/Hays: 3 Suture Information: Ethilon Comment: Laceration sterilely draped and prepped. Laceration was irregularly shaped with some superficial skin avulsion. Using 4-0 nylon a total of 3 single ruptured sutures placed with good wound edge approximation. Patient tolerated procedure well. MDM MDM MDM Narrative Medical decision making narrative: Patient have suture removal in 10 days. Patient to return if worsening headache, difficulty with balance, or condition should worsen anyway. Radiography Diagnostic Testing: Radiology Impression Brain CT 02/11/21 11:45 IMPRESSION: Chronic involutional changes of the brain. Electronically Signed: Sher Gomez MD at 12:43 EDT Tel , Service support , Discharge Plan Triage Chief Complaint: Fall ED Provider: Mary Grace Martinez Dx/Rx/DC Orders Clinical Impression: Closed head injury, Laceration of occipital scalp, Fall Instructions: ED Fall with Uncertain Cause, ED Laceration: All Closures Prescriptions: No Action carbidopa-levodopa 25-100 mg tablet 1.5 tab PO TID RF: 0 losartan 25 MG tablet 25 mg PO DAILY RF: 0 atorvastatin 20 MG tablet 20 mg PO DAILY RF: 0 aspirin 81 MG tablet,delayed release (DR/EC) 81 mg PO DAILY RF: 0 tamsulosin 0.4 MG capsule 0.8 mg PO QHS RF: 0 cholecalciferol (vitamin D3) 50 MCG capsule 2,000 unit PO DAILY RF: 0 levothyroxine 100 MCG tablet 100 mcg PO DAILY RF: 0 hydrocortisone 10 MG tablet 20 mg PO BREAKFAST RF: 0 polysaccharide iron complex 150 MG capsule 150 mg PO DAILYCM Qty: 30 RF: 0 acetaminophen 500 MG tablet 1,000 mg PO Q6H PRN PRN (Reason: Pain Score 1-5) RF: 0 escitalopram oxalate 10 MG tablet 10 mg PO DAILY RF: 0 hydrocortisone 10 mg tablet 10 mg PO DINNER RF: 0 omega 9-pkw-bxm-fish oil [Fish Oil] 1,200 (144-216) mg Capsule 1,200 cap PO DAILY RF: 0 Eliquis 5 mg tablet 5 mg PO BID RF: 0 Primary Care Provider: Gianluca Trevino Referrals: Gianluca Trevino MD [Primary Care Provider] - 10 Day for suture removal Disposition Disposition: Home, Self Care
--- NOTE | 2021-02-11 11:45 | CT_ITS ---
STUDY: CT BRAIN WITHOUT CONTRAST REASON FOR EXAM: Male, 80 years old. head injury RADIATION DOSAGE (If Supplied By Facility): CTDIvol = ( 44.99 ) mGy, DLP = ( 796.11 ) mGycm TECHNIQUE: Transaxial CT imaging of the brain was performed without administration of intravenous contrast material. Individualized dose optimization techniques were used for this CT. COMPARISON: 12/22/2020 FINDINGS: Normal soft tissue structures. Normal calvarium. There is moderate cerebral atrophy with widening of the extra-axial spaces and ventricular dilatation. Normal white matter tracts of the cerebral hemispheres. Normal basal ganglia and thalami. Normal brainstem. Normal cerebellum. There is no intracranial hemorrhage. There are no findings of an acute ischemic infarction. Normal visualized paranasal sinuses. CT/Brain/Head without Contrast IMPRESSION: Chronic involutional changes of the brain. Electronically Signed: Sher Gomez MD at 12:43 EDT Tel , Service support ,
[2021-02-11] MEDS: Lidocaine 1% (20 ml mdv) 20 ML Vial 6 ML INFILT (12:01)
[2021-02-11 13:47] VITALS: BP 132/72; PULSE 61; RESP 18; O2SAT 98
--- NOTE | 2021-02-11 13:51 | ED.RN ---
ATTEMPTED TO CALL [facility] FOR [facility], BUT NO ANSWER AT THIS TIME. WILL TRY AGAIN.
== END 2021-02-11 14:25 | disposition home or self-care (01) ==
PROVIDERS: Emergency Provider Emergency Medicine; PCP Family Medicine
DX: S01.01XA Laceration without foreign body of scalp, initial encounter (principal); I25.10 Atherosclerotic heart disease of native coronary artery without angina pectoris; I25.2 Old myocardial infarction; W19.XXXA Unspecified fall, initial encounter
CPT/HCPCS: 12001; 70450; 99284

== ENCOUNTER → 2021-02-24 15:59 | Outpatient (CLI) | payer MEDICARE, SELFPAY ==
[2021-02-11 11:18] VITALS: BMI 31.5
--- NOTE | 2021-02-24 16:04 | CT_ITS ---
EXAMINATION : Head CT w/out contrast HISTORY : CLOSED HEAD INJURY -- HEAD TRAUMA,MOD-SEVERE COMPARISON : 02/24/2021. TECHNIQUE : Multiple contiguous axial images were obtained from the skull base to the vertex without intravenous contrast. A radiation dose optimization technique was used for this scan. FINDINGS : There is no evidence for acute intracranial hemorrhage, mass effect, or midline shift. There is no extra-axial fluid collection. There are periventricular white matter changes consistent with chronic microvascular ischemic disease. There is sulcal widening and ventricular enlargement consistent with cerebral atrophy. There is normal camejo-white differentiation, without CT evidence of acute ischemia or infarct. The skull base and calvarium are unremarkable. The orbits are unremarkable. The paranasal sinuses are clear. The mastoid air cells are well-aerated. The soft tissues are unremarkable. CT/Brain/Head without Contrast IMPRESSION: No acute intracranial abnormality. Chronic involutional and ischemic changes of the brain. Electronically Signed: García Beauchamp MD at 16:41 EDT Tel , Service support ,
== END ==
PROVIDERS: PCP Family Medicine; Referring Provider Family Medicine; Visit Provider Family Medicine
DX: S09.90XA Unspecified injury of head, initial encounter (principal)
CPT/HCPCS: 70450

== ENCOUNTER 2021-02-27 10:20 | Emergency (ER) | payer MEDICARE, SELFPAY ==
[2021-02-27 10:22] VITALS: BP 84/48; BP 85/51; PULSE 54; PULSE 55; RESP 17; TEMP 35.9; O2SAT 96; BMI 31.5
--- NOTE | 2021-02-27 11:15 | EKG12_ITS ---
Test Reason : Blood Pressure : / mmHG Vent. Rate : 056 BPM Atrial Rate : 056 BPM P-R Int : 218 ms QRS Dur : 102 ms QT Int : 504 ms P-R-T Axes : 050 029 021 degrees QTc Int : 486 ms Sinus bradycardia with 1st degree A-V block Nonspecific T wave abnormality Prolonged QT Abnormal ECG Confirmed by JEREMIE BOSTON, RENEE ([id number]), assistant film editor PEBBLES PAULSON ([id number]) on 03/02/2021 9:52:40 AM Referred By: ANTONETTE Confirmed By:LASHA CHAO MD
[2021-02-27 11:18] VITALS: O2SAT 96
[2021-02-27 11:23] VITALS: BP 96/82; PULSE 54; RESP 19; O2SAT 98
[2021-02-27 11:24] VITALS: TEMP 36.8
[2021-02-27] MEDS: 0.9% Normal Saline 1,000 ML 999 ML IV (11:38)
--- NOTE | 2021-02-27 11:48 | EDS_ITS ---
HPI History of Present Illness Chief Complaint: Weakness Narrative Narrative: 80-year-old male presenting for generalized weakness, nausea, vomiting. Patient had recent head injury on Eliquis. He continued to have nausea and vomiting so his primary care physician ordered a head CT which was negative. Patient has decreased p.o. intake and feels generally weak. He does not have a cough or shortness of breath. He denies chest pain or abdominal pain. He denies urinary symptom. He does note that he has an inguinal rash bilaterally. [facility] Medical History Abnormal ultrasound of breast Acute cholecystitis Arthritis CAD in [place] artery Cholecystitis Fatigue History of DVT (deep vein thrombosis) History of heart attack History of pituitary tumor resection Left breast lump Low back problem Parkinson disease pituitary macroadenoma resection Postoperative abscess Preop cardiovascular exam Secondary adrenal insufficiency Secondary hypothyroidism Secondary male hypogonadism Home Medications losartan 25 mg PO DAILY 10/24/19 [History Last Taken 12/22/20] atorvastatin 20 mg PO DAILY 12/25/19 [History Last Taken 12/21/20] aspirin 81 mg PO DAILY 01/16/20 [History Last Taken 12/22/20] tamsulosin 0.8 mg PO QHS 01/16/20 [History Last Taken 12/21/20] carbidopa 25 mg-levodopa 100 mg tablet 1.5 tab PO TID tab 07/24/20 [History Last Taken 12/22/20] cholecalciferol (vitamin D3) 2,000 unit PO DAILY 09/08/20 [History Last Taken 12/22/20] hydrocortisone 20 mg PO BREAKFAST 09/08/20 [History Last Taken 12/22/20] levothyroxine 100 mcg PO DAILY 09/08/20 [History Last Taken 12/22/20] acetaminophen 1,000 mg PO Q6H PRN PRN tab 09/25/20 [Rx Last Taken Unknown] escitalopram oxalate 10 mg PO DAILY tab 09/25/20 [Rx Last Taken 12/22/20] polysaccharide iron complex 150 mg PO DAILYCM #30 cap 09/25/20 [Rx Last Taken 12/21/20] Eliquis 5 mg PO BID 12/22/20 [History Last Taken 12/22/20] hydrocortisone 10 mg PO DINNER 12/22/20 [History Last Taken 12/21/20] omega 3-hny-hsp-fish oil [Fish Oil] 1,200 cap PO DAILY 12/22/20 [History Last Taken 12/22/20] ondansetron 8 mg PO Q8H PRN PRN #20 tab 02/27/21 [Rx Last Taken Unknown] Allergy/AdvReac Type Severity Reaction Status Date / Time No Known Allergies Allergy Verified 02/27/21 10:22 Family History Mother Skin cancer Cancer Skin and other unknown Sister Cancer Unknown type Surgical History History of back surgery History of cholecystectomy (~12/2019) Hx of colonoscopy Hx of elbow surgery Hx of heart artery stent Hx of left breast biopsy Social History Smoking Status: Never smoker second hand exposure: No alcohol intake: current alcohol intake frequency: holidays/special occasions only substance use type: does not use caffeine: Yes what type of physical activity do you participate in: none frequency: does not exercise ROS ROS ED Constitutional Constitutional ED: Denies chills or fever(s) Eyes Eyes: Denies blurry vision or diplopia ENT ENT ED: Denies rhinorrhea or sore throat Cardiovascular Cardiovascular: Denies chest pain or palpitations Respiratory/Chest Respiratory/Chest: Denies cough or dyspnea Gastrointestinal Gastrointestinal: Reports nausea and vomiting; Denies abdominal pain Genitourinary Genitourinary ED: Denies dysuria or hematuria Musculoskeletal Musculoskeletal: Denies arthralgias or myalgias Integumentary Reports other Details: Bilateral inguinal rash Neurologic Neurologic: Reports headache(s); Denies paresthesias Psychiatric Psychiatric: Denies anxiety or depression EXAM Physical Exam Const Vital Signs: 02/27/21 10:22 02/27/21 10:43 02/27/21 11:18 Temperature 96.7 F L Temperature Source Temporal Pulse Rate 54 L Respiratory Rate 17 Respiratory Effort Normal Non-Labored Respiratory Pattern Normal Blood Pressure 84/48 L Blood Pressure Mean 60 Pulse Ox 96 96 Oxygen Delivery Method Room Air Room Air 02/27/21 11:23 02/27/21 11:24 02/27/21 12:17 Temperature 98.2 F 98.2 F Temperature Source Oral Oral Pulse Rate 54 L 59 L Respiratory Rate 19 H 20 H Respiratory Effort Respiratory Pattern Blood Pressure 96/82 H 121/66 H Blood Pressure Mean 86 84 Pulse Ox 98 98 Oxygen Delivery Method Room Air Room Air Positive well nourished General Appearance ED: NAD KODI Reports dry mucous membranes atraumatic Mouth ED: Yes dry mucous membranes Mouth: dry mucous membranes Eyes PERRL and EOMs intact bilaterally Resp normal respiratory effort and clear to auscultation bilaterally Cardio regular rate and regular rhythm GI non-tender and non-distended Palpation: soft Extremity normal to inspection General Extremety ED: Negative for edema or tenderness General Extremity: Negative for edema Neuro oriented x3 Sensorium / Orientation: alert Skin Skin Narrative: [place] scaly rash in the bilateral inguinal areas. There is a topical powder applied to these areas. Does not appear to be cellulitic in nature. MDM MDM MDM Narrative Medical decision making narrative: Patient presents for nausea vomiting and headaches. He is hypotensive on initial evaluation. He had an EKG performed on arrival which is sinus rhythm at 56 bpm with a first-degree AV block on my interpretation. PA interval is 218. QTc is 46. patient stated initially that he does not take blood pressure medicine however it is in the record that he takes losartan. When asked about this he confirmed this. Patient's CBC shows that he is leukopenic and lymphopenic. PT/INR are normal. Creatinine is slightly increased at 1.39. Lactic acid is 1.7. Urinalysis is negative for infection. Chest x-ray is interpreted by myself shows no acute cardiopulmonary process and the radiologist does agree. Patient was given a liter of IV fluids and his blood pressure is now in the 120s. I discussed the patient with Dr. Barnhart who is on-call for his primary care physician and recommended close follow-up. He stated that looking at the medical record his blood pressure is usually about 100 systolic in the office. He also recommended discontinuing losartan if he is having low blood pressures. Patient initially was pancultured I have thought I might find infection however I did not. He has a Covid PCR pending, but I think he stable enough to be discharged home to wait for the result. Patient states he feels comfortable with this. I did look at the 2 CTs that were negative this week. I do not believe he needs a repeat CT. I will give him Zofran for home. Impression: 1. Hypotension resolved 2. Acute kidney injury 3. Nausea/vomiting Lab Data Attestation: I reviewed the patient's lab results. Labs: Laboratory Results - last 24 hr 02/27/21 02/27/21 02/27/21 10:40 10:40 11:38 WBC 3.7 L RBC 3.86 L Hgb 11.5 L Hct 35.7 L MCV 92.5 MCH 29.8 MCHC 32.2 RDW Std Deviation 46.5 H RDW Coeff of Delisa 13.8 Plt Count 222 MPV 9.9 Immature Gran % (Auto) 1.400 H Neut % (Auto) 49.7 Lymph % (Auto) 30.6 [place] % (Auto) 9.8 Eos % (Auto) 7.1 H Baso % (Auto) 1.4 H Absolute Neuts (auto) 1.8 L Absolute Lymphs (auto) 1.12 Nucleated RBC % 0 PT 14.7 INR 1.2 APTT 33.8 Sodium 136 Potassium 3.8 Chloride 103 Carbon Dioxide 27.0 Anion Gap 6 BUN 7 Creatinine 1.39 H Estim Creat Clear Calc 44.49 Est GFR (MDRD) Af Amer 63 Est GFR (MDRD) Non-Af 52 L BUN/Creatinine Ratio 5.0 L Glucose 126 H Lactic Acid Calcium 9.0 Total Bilirubin 1.00 AST 77 H ALT 64 H Alkaline Phosphatase 98 Troponin I High Sens 7.6 Total Protein 6.8 Albumin 3.5 Globulin 3.3 Albumin/Globulin Ratio 1.1 Urine Color Urine Clarity Urine pH Ur Specific [place] Urine Protein Urine Glucose (UA) Urine Ketones Urine Occult Blood Urine Nitrite Urine Bilirubin Urine Urobilinogen Ur Leukocyte Esterase Urine RBC Urine WBC Ur Squamous Epith Cells Urine Bacteria Urine Mucus 02/27/21 02/27/21 11:38 12:15 WBC RBC Hgb Hct MCV MCH MCHC RDW Std Deviation RDW Coeff of Delisa Plt Count MPV Immature Gran % (Auto) Neut % (Auto) Lymph % (Auto) [place] % (Auto) Eos % (Auto) Baso % (Auto) Absolute Neuts (auto) Absolute Lymphs (auto) Nucleated RBC % PT INR APTT Sodium Potassium Chloride Carbon Dioxide Anion Gap BUN Creatinine Estim Creat Clear Calc Est GFR (MDRD) Af Amer Est GFR (MDRD) Non-Af BUN/Creatinine Ratio Glucose Lactic Acid 1.7 Calcium Total Bilirubin AST ALT Alkaline Phosphatase Troponin I High Sens Total Protein Albumin Globulin Albumin/Globulin Ratio Urine Color Yellow Urine Clarity Sl. Cloudy Urine pH 5.0 Ur Specific [place] 1.020 Urine Protein 15 H Urine Glucose (UA) Normal Urine Ketones Negative Urine Occult Blood 25 H Urine Nitrite Negative Urine Bilirubin Negative Urine Urobilinogen 1 H Ur Leukocyte Esterase Negative Urine RBC 0-5 SEEN Urine WBC 0 SEEN Ur Squamous Epith Cells 0-5 SEEN Urine Bacteria 0 SEEN Urine Mucus 0 SEEN Radiography Diagnostic Testing: Radiology Impression Chest X-Ray 02/27/21 11:48 IMPRESSION: No acute abnormality is seen. Stable examination. Electronically Signed: Luis Fontaine MD at 12:07 EDT , Service support , Discharge Plan Triage Chief Complaint: Weakness ED Provider: Kaiden Wiggins Dx/Rx/DC Orders Instructions: Acute Kidney Failure Dc, ED Low Blood Pressure, All Causes, ED Weakness (Uncertain Cause) Prescriptions: New ondansetron 4 mg tablet,disintegrating 8 mg PO Q8H PRN PRN (Reason: Nausea) Qty: 20 RF: 0 No Action carbidopa-levodopa 25-100 mg tablet 1.5 tab PO TID RF: 0 losartan 25 MG tablet 25 mg PO DAILY RF: 0 atorvastatin 20 MG tablet 20 mg PO DAILY RF: 0 aspirin 81 MG tablet,delayed release (DR/EC) 81 mg PO DAILY RF: 0 tamsulosin 0.4 MG capsule 0.8 mg PO QHS RF: 0 cholecalciferol (vitamin D3) 50 MCG capsule 2,000 unit PO DAILY RF: 0 levothyroxine 100 MCG tablet 100 mcg PO DAILY RF: 0 hydrocortisone 10 MG tablet 20 mg PO BREAKFAST RF: 0 polysaccharide iron complex 150 MG capsule 150 mg PO DAILYCM Qty: 30 RF: 0 acetaminophen 500 MG tablet 1,000 mg PO Q6H PRN PRN (Reason: Pain Score 1-5) RF: 0 escitalopram oxalate 10 MG tablet 10 mg PO DAILY RF: 0 hydrocortisone 10 mg tablet 10 mg PO DINNER RF: 0 omega 4-skr-zso-fish oil [Fish Oil] 1,200 (144-216) mg Capsule 1,200 cap PO DAILY RF: 0 Eliquis 5 mg tablet 5 mg PO BID RF: 0 Primary Care Provider: Gianluca Trevino Referrals: Gianluca Trevino MD [Primary Care Provider] - Ankur Barnhart MD [STAFF PHYSICIAN] - 2 Days Disposition Disposition: Home, Self Care
--- NOTE | 2021-02-27 11:48 | RAD_ITS ---
STUDY: X-RAY CHEST REASON FOR EXAM: Male, 80 years old. Weakness TECHNIQUE: Single AP portable view of the chest. COMPARISON: Comparison is made with prior study dated 12/22/2020. FINDINGS: EKG electrodes are seen. The lungs are clear and expanded. There is no demonstrated pleural abnormality. Normal size heart. Normal mediastinum and rd. Normal visualized pulmonary arteries. Normal visualized aortic arch and descending thoracic aorta. There are degenerative changes of the visualized thoracic spine. Abdomen marnie fixation of the lower thoracic and visualized lumbar spine. Normal visualized ribs, clavicles, and shoulders. There is no demonstrated abnormality of the visualized soft tissue structures of the upper abdomen. RAD/Chest 1 View (Portable) IMPRESSION: No acute abnormality is seen. Stable examination. Electronically Signed: Luis Fontaine MD at 12:07 EDT , Service support ,
[2021-02-27 12:01] LABS: Absolute Lymphocyte Count 1.12 X10^3/uL (0.83-4.51); Absolute Neutrophil Count 1.8 X10^3/uL (2.0-7.7); Basophil# 0.05 X10^3/uL; Basophil% 1.4 % (0-1); Eosinophil# 0.26 X10^3/uL; Eosinophils% 7.1 % (0-5); Hematocrit 35.7 % (40-54); Hemoglobin 11.5 g/dL (13.0-16.5); Lymphocyte # 1.12 X10^3/ul (0.83-4.51); Lymphocyte % 30.6 % (19-41); Mean Corp Hgb Conc 32.2 g/dL (32-36); Mean Corpuscular Hgb 29.8 pg (27.0-32.0); Mean Corpuscular Volume 92.5 fL (80-94); Mean Platelet Vol. 9.9 fl (6.2-12.0); Monocyte# 0.36 X10^3/uL; Monocyte% 9.8 % (0-10); NRBC Flagged by Analyzer 0 % (0-5); Neutrophil # 1.82 X10^3/uL (2.7-7.7); Neutrophil % 49.7 % (47-70); Platelet Count 222 K/mm3 (150-450); RBC Distribution Width CV 13.8 % (11.6-14.6); RBC Distribution Width SD 46.5 fl (35.1-43.9); Red Blood Count 3.86 M/mm3 (4.6-6.2); White Blood Count 3.7 K/mm3 (4.4-11.0)
[2021-02-27 12:10] LABS: International Normalized Ratio 1.2; Prothrombin Time (Protime)PT. 14.7 SECONDS (11.7-14.9)
[2021-02-27 12:11] LABS: Partial Thromboplast Time 33.8 Seconds (24.1-36.2)
[2021-02-27 12:17] VITALS: BP 121/66; PULSE 59; RESP 20; TEMP 36.8; O2SAT 98
[2021-02-27 12:25] LABS: ALB/GLOB Ratio 1.1 RATIO (0.9-2.4); AST(SGOT) 77 U/L (15-37); Alanine Aminotransfer ALT/SGPT 64 U/L (16-61); Albumin, Serum 3.5 g/dL (3.2-5.0); Alkaline Phosphatase 98 U/L (45-117); Anion Gap 6 (5-15); BUN 7 mg/dL (7-18); Chloride 103 mmol/L (98-107); Creatinine, Serum 1.39 mg/dL (0.70-1.30); EST Glomerular Filtration Rate 52 mL/min (>60); Est Glom Filt Rate - Afr Amer 63 mL/min (>60); Estimated Creatinine Clearance 44.49 ml/min; Globulin 3.3 g/dL (2.2-4.2); Glucose 126 mg/dL (74-106); Potassium 3.8 mmol/L (3.5-5.1); Protein, Total 6.8 g/dL (6.4-8.2); Sodium Level 136 mmol/L (136-145); Troponin-I HS 7.6 pg/mL (3.0-78.5)
[2021-02-27 12:31] LABS: Bacteria 0 SEEN /hpf (None Seen); Mucous, Urine 0 SEEN /hpf (<or=2+); White Blood Cells 0 SEEN /hpf (0-5)
[2021-02-27 12:31] LABS: Lactic Acid 1.7 mmol/L (0.4-1.9)
[2021-02-27 12:36] LABS: Color, Urine Yellow (Yellow); Glucose, Dipstick Normal (Normal); Ketone-Dipstick Negative (Negative); Leukocyte Esterase-Dipstick Negative /ul (Negative); Nitrite-Dipstick Negative (Negative); Occult Blood-Urine 25 /ul (Negative); Protein-Dipstick 15 mg/dl (Negative); Urine Bilirubin Dipstick Negative (Negative); Urine Clarity Sl. Cloudy (Clear); Urine Urobilinogen 1 mg/dl (Normal)
[2021-02-27 12:54] LABS: Red Blood Cells-Urine 0-5 SEEN /hpf (0-5); Squamous Epithelial Cells - UA 0-5 SEEN /hpf (0-5)
[2021-02-27] MEDS: Ondansetron 4 MG/2 ML Vial IV (13:50)
[2021-02-27 14:16] VITALS: BP 113/60; PULSE 59; RESP 16; O2SAT 96
== END 2021-02-27 14:24 | disposition home or self-care (01) ==
PROVIDERS: Emergency Provider Student in an Organized Health Care Education/Training Program; PCP Family Medicine
DX: N17.9 Acute kidney failure, unspecified (principal); R11.2 Nausea with vomiting, unspecified; I25.10 Atherosclerotic heart disease of native coronary artery without angina pectoris; I25.2 Old myocardial infarction; E03.8 Other specified hypothyroidism; Z79.01 Long term (current) use of anticoagulants; Z79.82 Long term (current) use of aspirin; Z86.718 Personal history of other venous thrombosis and embolism
CPT/HCPCS: 36415; 71045; 80053; 81001; 83605; 84484; 85025; 85610; 85730; 87040; 87086; 87088; 87635; 93005; 96361; 96374; 99284; J7030; U0005; A4216; J2405; U0003

== ENCOUNTER → 2021-03-06 11:20 | Outpatient (CLI) | payer MEDICARE, SELFPAY ==
[2021-02-27 10:22] VITALS: BMI 31.5
--- NOTE | 2021-03-06 11:45 | RAD_ITS ---
STUDY: X-RAY - CERVICAL SPINE REASON FOR EXAM: Male, 80 years old. NECK PAIN TECHNIQUE: 5 view(s) of the cervical spine were obtained. COMPARISON: None FINDINGS: Normal anterior atlantoaxial articulation. Normal odontoid process. Normal cervical lordosis. There is diffuse demineralization of the cervical spine. There is multi-level degenerative disc disease with multilevel disc space narrowing. Disc space narrowing is most conspicuous at C6-C7. Multilevel uncovertebral and facet arthropathy causing bilateral foraminal narrowing, particularly at right C5-C6. The soft tissue structures are unremarkable. RAD/Cerv Spine 4 or 5 Views IMPRESSION: 1. Multilevel degenerative disc disease, facet arthropathy and uncovertebral hypertrophy causing foraminal narrowing, as above. Electronically Signed: Michi Erazo MD ([place]) at 17:07 EDT , Service support ,
[2021-03-06 15:02] LABS: Absolute Lymphocyte Count 0.88 X10^3/uL (0.83-4.51); Absolute Neutrophil Count 3.9 X10^3/uL (2.0-7.7); Basophil# 0.07 X10^3/uL; Basophil% 1.3 % (0-1); Eosinophils% 1.9 % (0-5); Hematocrit 36.3 % (40-54); Hemoglobin 11.1 g/dL (13.0-16.5); Lymphocyte # 0.88 X10^3/ul (0.83-4.51); Lymphocyte % 16.5 % (19-41); Mean Corp Hgb Conc 30.6 g/dL (32-36); Mean Corpuscular Hgb 29.8 pg (27.0-32.0); Mean Corpuscular Volume 97.3 fL (80-94); Mean Platelet Vol. 9.9 fl (6.2-12.0); Monocyte# 0.38 X10^3/uL; Monocyte% 7.1 % (0-10); NRBC Flagged by Analyzer 0 % (0-5); Neutrophil # 3.87 X10^3/uL (2.7-7.7); Neutrophil % 72.6 % (47-70); Platelet Count 237 K/mm3 (150-450); RBC Distribution Width CV 14.1 % (11.6-14.6); RBC Distribution Width SD 51.1 fl (35.1-43.9); Red Blood Count 3.73 M/mm3 (4.6-6.2); White Blood Count 5.3 K/mm3 (4.4-11.0)
[2021-03-06 15:28] LABS: ALB/GLOB Ratio 1.2 RATIO (0.9-2.4); AST(SGOT) 59 U/L (15-37); Alanine Aminotransfer ALT/SGPT 58 U/L (16-61); Albumin, Serum 3.7 g/dL (3.2-5.0); Alkaline Phosphatase 88 U/L (45-117); Amylase 33 U/L (25-115); Anion Gap 9 (5-15); BUN 18 mg/dL (7-18); BUN/Creat Ratio 13.5 RATIO (10-20); Calcium,Total 8.4 mg/dL (8.5-10.1); Chloride 105 mmol/L (98-107); Creatinine, Serum 1.33 mg/dL (0.70-1.30); EST Glomerular Filtration Rate 55 mL/min (>60); Est Glom Filt Rate - Afr Amer 67 mL/min (>60); Globulin 3.2 g/dL (2.2-4.2); Glucose 100 mg/dL (74-106); Lipase 186 U/L (73-393); Potassium 4.3 mmol/L (3.5-5.1); Prealbumin 13.2 mg/dL (20.0-40.0); Protein, Total 6.9 g/dL (6.4-8.2); Sodium Level 142 mmol/L (136-145); Thyroid Stim Hormone (TSH) 0.44 uIU/mL (0.358-3.74)
== END ==
PROVIDERS: PCP Family Medicine; Referring Provider Family Medicine; Visit Provider Family Medicine
DX: R79.89 Other specified abnormal findings of blood chemistry (principal); R53.1 Weakness; R63.4 Abnormal weight loss; R11.0 Nausea; R53.81 Other malaise; R29.6 Repeated falls; M54.2 Cervicalgia
CPT/HCPCS: 36415; 72050; 80053; 82150; 83690; 84134; 84443; 85025; 97110; 97530

== ENCOUNTER 2021-04-21 15:00 | Outpatient (RCR) | payer MEDICARE, SELFPAY ==
[2020-12-23 15:53] VITALS: BMI 29.3
--- NOTE | 2021-01-30 08:55 | HP.PTEVAL ---
Patient's Visit Information KEN ALFRED is a 80 year old M referred to Physical Therapy by Dr. Gianluca Trevino MD with a diagnosis of falls. Date of Evaluation: 01/30/21 Physical Therapist: Sigifredo Fitzgerald DPT, OCS, CSCS - Visit Plan Frequency: 3x /Week Duration: 4-6 Weeks Plan: 3x/week for 4-6 weeks for... 1. Gait traingin for safety and volume with LRD(cane progressing to no AD as safety allows). 2. steps. 3. balance and BIG movement/weight shift ex to HEP. postural strength - Subjective Working on third back surgery. Had fusion Aug 19 LB. Has had home therapy since. Prior had pain in legs and back. He shattered it falling in yard a while ago 05/09/19. Has had three surgeries. Pain is not bad anymore about 2/10 in back if he walks too much. Comfortable at rest. Sleeps well but he is up and down with bladder problems. Rolls in bed OK, needs help rolling L. Trasnfers chair but at times needs help from low chair. Walks around house with cane but baalnce not great. No falls lately. Original fall was a tiller accident. Wears back braced most of time as it feels better with it on. Ex at home include squats , knee bends and counter exercises. Walking program 100 yards at most. Spends day watching birds in WC at home. Has steps 3 with rail and can do them I. Slow. Wants to mcneal and fishing. Dresses self, bathroom self, shower with walkin and he does this himself. Has shower seat. - Pain LBP Pain Intensity (Out of 10): 0 Pain Intensity Range: 0, 2 - Objective L weaker in LE. Pt has back brace on and sits passively today. Tends to hunch FW in standing and needs VC to stadn up tall, barely gets to neutral position with cues. Tends to move in short movements typical of Parkisnsons in UE adn LE steps. Stairs are requiring two rails and slow. Poor FW weight shift. Two rails needed to exit chair due to leg weakness. Stand to sit I with UE. Stands without AD in [place] I eo and ec 30 sec. Lots of wwavering with ec. Sepideh with cane R UE slow with short steps and hunched over but mod I. Rest needed after 100 feet today and then walker back slower without AD and SBA. Gastroc and HS max tight, quads max tight. LE AROM WFL, needs VC to move full ROM. Strength L LE 3+ and R 4-. reflexes 0/3 patella adn achilles today. Sensation LE WNL to gross lgiht touch. LB AROM ext barely to neutral, SB max limited. Flexion mod limited - Goals Goal 1:: I approp home balance and Parkinsons related ex to compliment stephanieetn sink strenghening Goal Time Frame: 4-6 Weeks Goal 2:: Walk 300 feet with LRD without need for rest or cues for posture Goal Time Frame: 4-6 Weeks Goal 3:: Steps reciprocal with one rail Goal Time Frame: 4-6 Weeks Goal 4:: Pt feel 75% improved in mobility overall. Goal Time Frame: 4-6 Weeks Goal 5:: 30 LEFS score to show improved mobility. Goal Time Frame: 4-6 Weeks - Rehabilitation Potential Physical Therapy Diagnosis: weakness and immobility after recent back problems/ PD Rehabilitation Potential: Fair - Anticipated Interventions Patient/Client Instruction: Educate patient on: Condition For the Purpose of:: To decrease pain, To increase ROM, To improve muscle performance and motor function, To increase tolerance to activity/condition/position, To improve ability of physical actions for home/community/work/leisure, To improve gait and locomotor functions Therapeutic Exercise to Include: Strength training, Balance training, Flexibilty training, Gait and locomotor training For the Purpose of:: To decrease pain, To increase ROM, To improve muscle performance and motor function, To improve performance and independence with ADL's, To decrease level of supervision to perform tasks, To improve ability of physical actions for home/community/work/leisure Functional Training to Include: ADL Training, Gait training For the Purpose of:: To improve ability of physical actions for home/community/work/leisure Thank you for the opportunity to evaluate your patient. For Medicare and Medicare HMO plans, please review the plan of care and approve it. It will need to be FAXED BACK to us at [phone] for Medicare purposes. For Medicare only, by signing this I certify the plan of care. Please let me know if there are questions or concerns regarding this plan of care. Physician Signature: Date:
--- NOTE | 2021-01-30 11:50 | HP.OTEVAL_ITS ---
Patient's Visit Information KEN ALFRED is a 80 year old M, referred to Occupational Therapy by Dr. Gianluca Trevino MD, with a diagnosis of prior fall and decline. Date of Evaluation: 01/30/21 Occupational Therapist: Rebekah Jones, OTR/L, CHT - Subjective This 80/M was seen for an OT eval today after a prior fall and had back surgery on 09/02/2020. Pt self-reported that he was fairly IND in ADLs, but did require assistance with things like socks, buttons, and IADL tasks like cutting food. Pt is continuing HEP that was given to him from the Home Health and was open to having a challenge. - Pain lower back 0 Pain Intensity Range: 7 - Objective Pt demonstrated limited sh flexion in both UE and limited supination is both UE. 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 - ROM Shoulder: right flexion 140 left 140 Elbow: r WFL/WFL Left WFL/WFL Forearm: R pronation WFL L WFL R sup 30* L sup 30* - Strength Shoulder: R 4/4 L4/4 Elbow: R 4/5 L 4/5 Forearm: R 4/4 L 4/4 Pill Machine Operator: R 59# L 50# Lateral Pinch: R 8# L 8# Tripod Pinch: R 8# L 10# - Quick DASH-Disab of Arm,Shoulder& Hand Quick DASH Score: 63.6350 - Goals Goal:: pt will demonstrate an increase in BUE strength to 4+/5 to increase pts ind. with ADLs and IADLs by d/c. Goal:: pt will demonstrate an increase of at least 10* of BUE sh flexion by d/c. to increase pts ind. with ADLs and IADLS. pt will demonstrate an increase of at least 15* of BUE supination by d/c. to increase pts ind. with ADLs and IADLS. Goal:: pt will demonstrate ability to print a small to medium length sentence 4/5 trials legibly by d/c. - Rehabilitation General Assessment: Pt fell at the beginning of August, with back surgery on 09/02/2020. Hx of Parkinson's that attributes to tremors in the hand that decrease pt's ability to write. PT would benefit from skilled OT services to 2- 3x a week for 4 weeks to increase strength, ROM and fine motor skills to become more IND in ADLs, IADLs, and handwriting. Today, therapist introduced new biceps and triceps exercises to add to his HEP and pt was given a more resistive band to work with. Therapy session was supervised and doc. approved by Rebekah MURILLO/Debbie, CHT Rehabilitation Potential: Good - Anticipated Interventions A/AAROM/PROM, Strengthening, Fine Motor Coord/Francisco J, Caregiver Training, Home Program - Visit Plan Frequency: 2-3x /Week Duration: 4 Weeks General Plan: Pt will continue with HEP adding in new modifications. Pt will be seen 2-3 x week for 4 weeks to increase strength, ROM, and fine motor dexterity to be more IND in ADLs, IADLs, and handwriting. TEXT: Thank you for the opportunity to evaluate your patient. For Medicare and Medicare HMO plans, please review the plan of care and approve it. It will need to be FAXED BACK to us at [phone] for Medicare purposes. Please let me know if there are questions or concerns regarding this plan of care. Physician Signature: Date:
--- NOTE | 2021-03-02 10:56 | HP.PTREVAL_ITS ---
Dr. Gianluca Trevino MD, It has been my pleasure to treat KEN ALFRED over the last 7 visits for falls. Please see the progress note below for an update on the physical therapy plan of care! Subjective: Dehydrated last weeka dn went to ER and has kidney damage going on. Feels like he is getting somewhere but was doing [email or web address] last we ek with dehydration. Definitely improving prior to that. Was walking with a cane prior to ER visit. Doing some HEP of marching at counter and other sink but not in the last week. Wants to continue PT. Objective/Function: walks with wh walker 150 feet today with SBA and step length just past other foot. Without walker is unable to functionally ambulate, he takes short steps adn feels unsteady, hesitant to move although he could do this prior to his dehydration last tuesday. Steps are with two rails pulling with UE and either foot to ascend adn descend but weak especially eccentrically descending. Not functional.Unable to tolerate FGA today. Pt was doing well prior to dehydration ER visit last Tuesday was then immediately worse. Slowly improving since that time but not as good as he was prior to that day. Appropriate to cotinue PT with same goals and fair prognosis. Plan Plan: 3x/week for 3 weeks to continue gait , steps and strength and progress back to how he was improving last week before hospital admission. Goals Goal 1:: I approp home balance and Parkinsons related ex to compliment curretn sink strenghening Goal Time Frame: 4-6 Weeks Goal Progress: Progressing Goal 2:: Walk 300 feet with LRD without need for rest or cues for posture Goal Time Frame: 4-6 Weeks Goal Progress: setback, approp Goal 3:: Steps reciprocal with one rail Goal Time Frame: 4-6 Weeks Goal Progress: setback , approp Goal 4:: Pt feel 75% improved in mobility overall. Goal Time Frame: 4-6 Weeks Goal Progress: 50% prior to ER Goal 5:: 30 LEFS score to show improved mobility. Goal Time Frame: 4-6 Weeks Goal Progress: backslid er visit Anticipated Interventions Patient/Client Instruction: Educate patient on: Condition For the Purpose of:: To decrease pain, To increase ROM, To improve muscle performance and motor function, To increase tolerance to activity/condition/position, To improve ability of physical actions for home/community/work/leisure, To improve gait and locomotor functions Therapeutic Exercise to Include: Strength training, Balance training, Flexibilty training, Gait and locomotor training For the Purpose of:: To decrease pain, To increase ROM, To improve muscle performance and motor function, To improve performance and independence with ADL's, To decrease level of supervision to perform tasks, To improve ability of physical actions for home/community/work/leisure Functional Training to Include: ADL Training, Gait training For the Purpose of:: To improve ability of physical actions for home/community/work/leisure Please do not hesitate to contact me at [phone] by phone or if you have questions or concerns regarding this new plan of care! Sincerely, Sigifredo Fitzgerald, DPT, OCS, CSCS
--- NOTE | 2021-03-09 08:51 | HP.OTREVAL ---
Dr. Gianluca Trevino MD, It has been my pleasure to treat KEN ALFRED over the last 1 visits for prior fall and decline. Please see the progress note below for an update on the occupational therapy plan of care! Subjective: pt arrives to session with - reports he is doing his exercises every other day and using orange t-band- Objective/Function: pt demo understanding of HEP-. pt making gains with strength but continues to struggle functional mobility and safe tsf. pt would benefit from continues skilled OT services 1-2x week for 4 more visits Plan Frequency: 1-2x /Week Duration: 2-4 Weeks Visits in this POC: 4 Plan: 4 more visits Goals - Goals Patient Goals: Regain Mobility, Regain Strength, Improve Fine Motor Skills, Increase ROM, Be More Independent in ADLS Goal:: pt will demonstrate an increase in BUE strength to 4+/5 to increase pts ind. with ADLs and IADLs by d/c. Goal:: pt will demonstrate an increase of at least 10* of BUE sh flexion by d/c. to increase pts ind. with ADLs and IADLS. goal met. pt will demonstrate an increase of at least 15* of BUE supination by d/c. to increase pts ind. with ADLs and IADLS. Goal:: pt will demonstrate ability to print a small to medium length sentence 4/5 trials legibly by d/c. Anticipated Interventions Anticipated Interventions: A/AAROM/PROM, Strengthening, Fine Motor Coord/Francisco J, Caregiver Training, Home Program Please do not hesitate to contact me at [phone] by phone or if you have questions or concerns regarding this new plan of care! Sincerely, Rebekah Jones, OTR/L, CHT
--- NOTE | 2021-03-16 14:13 | HP.PTREVAL_ITS ---
Dr. Gianluca Trevino MD, It has been my pleasure to treat KEN ALFRED over the last 11 visits for falls. Please see the progress note below for an update on the physical therapy plan of care! Subjective: adn he agree that things are improving again. Walking better, safer adn further. Using cane most of time, very little does he need the walker . No falls lately. Still fearful to try some things like front steps with railing as he does not want to fall. Needs to exit on steps safely. Gets LBP if no feet too long(15 inutes). Still wants to improve on steps and balance. Wants to get back to fishing. Wants to keep coming to therapy. Back pain 3/10 after 350 foot walk today, gone with sitting. Objective/Function: +4 LEFS score. Tolerated FGA today although slow, he did tolerate it when he has not in the past. Steps reciprocally today with one rail and one cane(VC to put full foot on step). Walks safeyl without cane short distances, recommended continue use julia cane for safety adn walker for pain control with longer ambulation and safety when tired if cannot rest. Overall showing slow but good imptrovement, more compliant with HEP adn progressed that today. appropriate for coontinued PT to work on upper level balance and activity that he would not be safe doing at home on his own. Fair prognosis to new goal. Plan Plan: 2x/week for 4 weeks for ... 1. Ensure compliance with HEP and progress as tolerated. 2. Upper level gait activities with walking balance for turns, step up and over, step length and functional balance strength with KB Balance/Gait/Functional tests - Balance/Special Test Scores Functional Gait Assessment Score: 14 % Disability: 53.3400 Lower Extremity Functional Score: 13 Goals Goal 1:: I approp home balance and Parkinsons related ex to compliment aleksandr sink strenghening Goal Time Frame: 4-6 Weeks Goal Progress: sink 3x/week. Goal 2:: Walk 300 feet with LRD without need for rest or cues for posture Goal Time Frame: 4-6 Weeks Goal Progress: Goal Met Goal 3:: Steps reciprocal with one rail Goal Time Frame: 4-6 Weeks Goal Progress: with cane, met Goal 4:: Pt feel 75% improved in mobility overall. Goal Time Frame: 4-6 Weeks Goal Progress: Goal Met Goal 5:: 30 LEFS score to show improved mobility. Goal Time Frame: 4-6 Weeks Goal Progress: backslid er visit Goal 6:: FGA improved to 19/30 to show improved balance and safety. Goal Time Frame: 4-6 Weeks Goal Progress: NEW GOAL Anticipated Interventions Patient/Client Instruction: Educate patient on: Condition For the Purpose of:: To decrease pain, To increase ROM, To improve muscle performance and motor function, To increase tolerance to activity/condition/position, To improve ability of physical actions for home/community/work/leisure, To improve gait and locomotor functions Therapeutic Exercise to Include: Strength training, Balance training, Flexibilty training, Gait and locomotor training For the Purpose of:: To decrease pain, To increase ROM, To improve muscle performance and motor function, To improve performance and independence with ADL's, To decrease level of supervision to perform tasks, To improve ability of physical actions for home/community/work/leisure Functional Training to Include: ADL Training, Gait training For the Purpose of:: To improve ability of physical actions for home/commun ity/work/leisure Please do not hesitate to contact me at [phone] by phone or if you have questions or concerns regarding this new plan of care! Sincerely, Sigifredo Fitzgerald, DPT, OCS, CSCS
--- NOTE | 2021-04-21 16:01 | HP.PTDCSUM_ITS ---
It has been my pleasure to treat KEN ALFRED referred by Dr. Gianluca Trevino MD, with the diagnosis of falls for a total of 17 visit(s). Discharge Date: 04/21/21 Please see the following information for a summary of their discharge status. Subjective: Tired. Staggering today due to fatgiue. Overall feeling better. Steps are easier by self at home holding onto rail. Doing counter exercises at home 3x/week. Some intermittent LBP to 08/24. Activities at home pretty normal at this point. No f/u with doctor scheduled. No falls lately. Using wh walker at home adn cane some times.Frustrated with hunching over so much, otherwise doing well. LBP Pain Intensity (Out of 10): 0 % Improvement: 80 Objective/Function: FGA is improving despite being tired today. Sit to stand with UE I. Steps pulling with both UE reciprocally easily but avoids FW weight shift. Pt is hunched over about 20 degrees much of time but can get close to neutral with VC and TC, only maintains it for short period of time. Goal 1:: I approp home balance and Parkinsons related ex to compliment curretn sink strenghening Goal Progress: Goal Met Goal 2:: Walk 300 feet with LRD without need for rest or cues for posture Goal Progress: Goal Met Goal 3:: Steps reciprocal with one rail Goal Progress: two rails and a pull Goal 4:: Pt feel 75% improved in mobility overall. Goal Progress: Goal Met Goal 5:: 30 LEFS score to show improved mobility. Goal Progress: backslid er visit Goal 6:: FGA improved to 19/30 to show improved balance and safety. Goal Progress: Goal Met Plan: Pt much better iwth posture and mobility but still hunched over most of time and can only correct for short periods of time. 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 If there are questions or concerns regarding this patient's physical therapy, please feel free to call me at [phone]. Thank you for the referral of this patient. Sincerely, Sigifredo Fitzgerald, DPT, OCS, CSCS Balance/Gait/Functional tests - Balance/Special Test Scores Functional Gait Assessment Score: 20 % Disability: 33.3400 Lower Extremity Functional Score: 17
== END 2021-04-21 19:00 | disposition home or self-care (01) ==
LOC: PT 15:00
PROVIDERS: PCP Family Medicine; Referring Provider Family Medicine; Visit Provider Family Medicine
DX: R53.81 Other malaise (principal); R29.6 Repeated falls
CPT/HCPCS: 97110; 97116; 97163; 97164; 97166; 97530

== ENCOUNTER → 2021-04-29 10:38 | Outpatient (CLI) | payer MEDICARE, SELFPAY ==
--- NOTE | 2021-04-29 10:46 | RAD_ITS ---
STUDY: X-RAY - LUMBAR SPINE REASON FOR EXAM: Male, 80 years old. Back pain dorsalgia TECHNIQUE: XR Spine Lumbar Min 4 Views COMPARISON: MRI 08/05/2020 FINDINGS: Normal lumbar lordosis. There is no substantial scoliosis. There is a normal alignment of the vertebrae. L1 compression deformity. This is stable since the prior MRI. There is multilevel endplate spondylosis of the lumbar vertebrae. There is multi-level degenerative disc disease with multi-level disc space narrowing. There are atherosclerotic vascular calcifications. The soft tissue structures are unremarkable. Spinal fixation hardware noted. RAD/L/S Spine Min 4 Views IMPRESSION: Degenerative changes of the spine, as detailed above. Electronically Signed: Jam Fair MD at 10:45 EDT , Service support ,
== END ==
PROVIDERS: PCP Family Medicine; Referring Provider Family Medicine; Visit Provider Family Medicine
DX: M54.9 Dorsalgia, unspecified (principal)
CPT/HCPCS: 72110

== ENCOUNTER 2021-05-14 09:05 | Outpatient (RCR) | payer MEDICARE, SELFPAY | END 2021-05-14 19:00 | disposition home or self-care (01) | LOC: PT 09:05 | PROVIDERS: PCP Family Medicine; Referring Provider Orthopaedic Surgery Orthopaedic Surgery of the Spine; Visit Provider Orthopaedic Surgery Orthopaedic Surgery of the Spine | DX: Z47.89 Encounter for other orthopedic aftercare (principal); Z98.1 Arthrodesis status ==

== ENCOUNTER → 2021-06-24 09:59 | Outpatient (CLI) | payer MEDICARE, SELFPAY ==
[2021-06-24 12:52] LABS: ALB/GLOB Ratio 0.9 RATIO (0.9-2.4); AST(SGOT) 29 U/L (15-37); Alanine Aminotransfer ALT/SGPT 22 U/L (16-61); Albumin, Serum 3.4 g/dL (3.2-5.0); Alkaline Phosphatase 65 U/L (45-117); Anion Gap 6 (5-15); BUN 13 mg/dL (7-18); BUN/Creat Ratio 7.6 RATIO (10-20); Calcium,Total 8.9 mg/dL (8.5-10.1); Chloride 106 mmol/L (98-107); Cholesterol 141 mg/dL (200); Creatinine, Serum 1.71 mg/dL (0.70-1.30); EST Glomerular Filtration Rate 41 mL/min (>60); Est Glom Filt Rate - Afr Amer 50 mL/min (>60); Globulin 3.6 g/dL (2.2-4.2); Glucose 100 mg/dL (74-106); High Density Lipoprotein 37 mg/dL; Sodium Level 140 mmol/L (136-145); Thyroid Stim Hormone (TSH) 1.35 uIU/mL (0.358-3.74); Triglycerides 194 mg/dL; Very Low Density Lipoprotein 39 mg/dL (5-40)
== END ==
PROVIDERS: PCP Family Medicine; Referring Provider Family Medicine; Visit Provider Family Medicine
DX: E78.2 Mixed hyperlipidemia (principal); I25.10 Atherosclerotic heart disease of native coronary artery without angina pectoris; I10 Essential (primary) hypertension; I95.1 Orthostatic hypotension; H53.2 Diplopia; E03.9 Hypothyroidism, unspecified
CPT/HCPCS: 36415; 80053; 80061; 84443

== ENCOUNTER → 2021-07-20 10:44 | Outpatient (CLI) | payer MEDICARE, SELFPAY ==
--- NOTE | 2021-07-20 10:50 | RAD_ITS ---
STUDY: X-RAY - ACUTE ABDOMINAL SERIES REASON FOR EXAM: Male, 81 years old. DECREASED APPETITE TECHNIQUE: Single view of the chest. Supine, erect, and decubitus view(s) of the abdomen were obtained. COMPARISON: None. FINDINGS: The lungs are clear and expanded. Normal size heart. Normal mediastinum and rd. Normal visualized pulmonary arteries. Normal visualized aortic arch and descending thoracic aorta. There is a non-specific bowel gas pattern. The soft tissue structures of the abdomen and pelvis are unremarkable. There are diffuse degenerative changes of the visualized lumbar spine. RAD/Acute Abdomen Inc Chest IMPRESSION: No acute abnormality of the chest, abdomen, and pelvis. Electronically Signed: Tiago Daugherty MD at 0:33 EST Tel , Service support ,
[2021-07-20 12:25] LABS: Absolute Lymphocyte Count 2.25 X10^3/uL (0.83-4.51); Absolute Neutrophil Count 3.3 X10^3/uL (2.0-7.7); Basophil# 0.07 X10^3/uL; Basophil% 1.1 % (0-1); Eosinophil# 0.25 X10^3/uL; Hemoglobin 12.7 g/dL (13.0-16.5); Lymphocyte # 2.25 X10^3/ul (0.83-4.51); Lymphocyte % 35.6 % (19-41); Mean Corp Hgb Conc 33.4 g/dL (32-36); Mean Corpuscular Volume 95.7 fL (80-94); Mean Platelet Vol. 9.6 fl (6.2-12.0); Monocyte# 0.44 X10^3/uL; NRBC Flagged by Analyzer 0 % (0-5); Neutrophil # 3.28 X10^3/uL (2.7-7.7); Neutrophil % 51.8 % (47-70); Platelet Count 197 K/mm3 (150-450); RBC Distribution Width CV 13.1 % (11.6-14.6); Red Blood Count 3.97 M/mm3 (4.6-6.2); White Blood Count 6.3 K/mm3 (4.4-11.0)
[2021-07-20 13:05] LABS: AST(SGOT) 27 U/L (15-37); Alanine Aminotransfer ALT/SGPT 20 U/L (16-61); Albumin, Serum 3.7 g/dL (3.2-5.0); Alkaline Phosphatase 62 U/L (45-117); Anion Gap 9 (5-15); BUN 19 mg/dL (7-18); BUN/Creat Ratio 10.4 RATIO (10-20); Calcium,Total 9.3 mg/dL (8.5-10.1); Chloride 104 mmol/L (98-107); Creatinine, Serum 1.83 mg/dL (0.70-1.30); EST Glomerular Filtration Rate 38 mL/min (>60); Est Glom Filt Rate - Afr Amer 46 mL/min (>60); Globulin 3.8 g/dL (2.2-4.2); Glucose 113 mg/dL (74-106); Potassium 4.3 mmol/L (3.5-5.1); Protein, Total 7.5 g/dL (6.4-8.2); Sodium Level 138 mmol/L (136-145)
== END ==
PROVIDERS: PCP Family Medicine; Referring Provider Family Medicine; Visit Provider Family Medicine
DX: R63.0 Anorexia (principal)
CPT/HCPCS: 36415; 74022; 80053; 85025

== ENCOUNTER → 2021-07-24 09:10 | Outpatient (CLI) | payer MEDICARE, SELFPAY ==
[2021-07-24 11:06] LABS: Free T3 1.3 pg/mL (2.18-3.98); Prolactin 1.2 ng/mL; T4 Free Direct 0.56 ng/dL (0.76-1.46)
== END ==
PROVIDERS: PCP Family Medicine; Referring Provider Internal Medicine Endocrinology, Diabetes & Metabolism; Visit Provider Internal Medicine Endocrinology, Diabetes & Metabolism
DX: E03.8 Other specified hypothyroidism (principal); E27.49 Other adrenocortical insufficiency; E29.1 Testicular hypofunction; D35.2 Benign neoplasm of pituitary gland; R53.83 Other fatigue
CPT/HCPCS: 36415; 84146; 84439; 84481

== ENCOUNTER 2021-11-09 15:17 | Outpatient (CLI) | payer MEDICARE, SELFPAY ==
[2021-11-09 18:29] LABS: Anion Gap 7 (5-15); BUN 20 mg/dL (7-18); BUN/Creat Ratio 12.2 RATIO (10-20); Calcium,Total 8.6 mg/dL (8.5-10.1); Chloride 106 mmol/L (98-107); Creatinine, Serum 1.64 mg/dL (0.70-1.30); EST Glomerular Filtration Rate 43 mL/min (>60); Est Glom Filt Rate - Afr Amer 52 mL/min (>60); Free T3 1.6 pg/mL (2.18-3.98); Glucose 135 mg/dL (74-106); Potassium 4.2 mmol/L (3.5-5.1); Sodium Level 140 mmol/L (136-145); T4 Free Direct 0.89 ng/dL (0.76-1.46); Thyroid Stim Hormone (TSH) 0.41 uIU/mL (0.358-3.74)
== END 2021-11-09 23:59 | disposition home or self-care (01) ==
LOC: MFPLAB 15:17
PROVIDERS: PCP Family Medicine; Visit Provider Family Medicine
DX: I10 Essential (primary) hypertension (principal); E03.9 Hypothyroidism, unspecified
CPT/HCPCS: 36415; 80048; 84439; 84443; 84481

== ENCOUNTER → 2021-12-14 | Outpatient (CLI) | payer MEDICARE, SELFPAY ==
--- NOTE | 2021-12-14 10:26 | MRI_ITS ---
EXAM: MR HEAD WITHOUT AND WITH INTRAVENOUS CONTRAST, INTERNAL AUDITORY CANAL PROTOCOL CLINICAL INDICATION: L HEARING LOSS TECHNIQUE: Multiplanar and multisequence MR images of the internal auditory canal were obtained without and with intravenous contrast. Magnetic field strength 1.5 T. This report was created using [employer] report [employer] technology. CONTRAST: IV 19ML DOTAREM COMPARISON: MR the brain 12/22/2020. FINDINGS: CRANIAL NERVES: Unremarkable. No mass. No abnormal enhancement. COCHLEA AND SEMICIRCULAR CANALS: Unremarkable. CEREBELLOPONTINE ANGLES: Unremarkable. No mass. BRAIN AND EXTRA-AXIAL SPACES: Moderate generalized atrophy. No intra- or extra-axial hemorrhage. No intracranial mass or mass effect. There is preservation of the olivas/white matter interface. Posterior fossa structures are unremarkable. Ventricles are appropriate for age. No hydrocephalus. Basal cisterns are patent. BONES/JOINTS: Unremarkable. No discrete lytic or blastic abnormalities. SINUSES: Unremarkable as visualized. Clear. MASTOID AIR CELLS: Unremarkable as visualized. Clear. ORBITS: Unremarkable as visualized. Both globes, extraocular muscles, optic nerves and retrobulbar fat appear unremarkable. MRI/Brain W/WO Contrast IMPRESSION: Unremarkable MRI of the internal auditory canals. Moderate generalized atrophy. Electronically Signed: Alex Magdaleno MD at 3:44 EDT ,
[2021-12-15 10:55] LABS: CREATININE FINGERSTICK 1.1 mg/dL (0.70-1.30); EGFR FINGERSTICK > 60.0000 mL/min (>60)
== END | disposition home or self-care (01) ==
PROVIDERS: PCP Family Medicine; Visit Provider Otolaryngology
DX: H91.22 Sudden idiopathic hearing loss, left ear (principal)
CPT/HCPCS: 70553; A9575

== ENCOUNTER 2022-01-04 12:23 | Inpatient (IN) | payer MEDICARE, SELFPAY ==
[2022-01-04] VITALS (39 sets, daily range): BP systolic 61–112; BP diastolic 40–68; PULSE 88–108; RESP 22–32; TEMP 36.6–38.4; O2SAT 87–100; BMI 30.7
--- NOTE | 2022-01-04 12:38 | EKG12_ITS ---
Test Reason : GEN ILLNESS Blood Pressure : / mmHG Vent. Rate : 100 BPM Atrial Rate : 100 BPM P-R Int : 188 ms QRS Dur : 096 ms QT Int : 404 ms P-R-T Axes : 045 029 085 degrees QTc Int : 521 ms Normal sinus rhythm Nonspecific ST and T wave abnormality Prolonged QT Abnormal ECG Confirmed by DAE BOSTON, RABIA ([id number]), supervising editor news reel PEBBLES PAULSON ([id number]) on 01/06/2022 1:20:26 PM Referred By: DAKOTAH Confirmed By:RABIA PEARL MD
[2022-01-04] MEDS: 0.9% Normal Saline 1,000 ML 999 ML IV ×4 (12:43→15:20)
[2022-01-04] MEDS: Acetaminophen 500 MG Tablet 1000 MG PO (12:52)
[2022-01-04 12:54] LABS: Absolute Lymphocyte Count 1.27 X10^3/uL (0.83-4.51); Absolute Neutrophil Count 6.2 X10^3/uL (2.0-7.7); Basophil# 0.03 X10^3/uL; Basophil% 0.4 % (0-1); Eosinophil# 0.03 X10^3/uL; Eosinophils% 0.4 % (0-5); Hematocrit 44.5 % (40-54); Hemoglobin 14.1 g/dL (13.0-16.5); Lymphocyte # 1.27 X10^3/ul (0.83-4.51); Lymphocyte % 16.3 % (19-41); Mean Corp Hgb Conc 31.7 g/dL (32-36); Mean Corpuscular Hgb 32.3 pg (27.0-32.0); Mean Corpuscular Volume 101.8 fL (80-94); Mean Platelet Vol. 10.2 fl (6.2-12.0); Monocyte% 2.6 % (0-10); NRBC Flagged by Analyzer 0 % (0-5); Neutrophil # 6.21 X10^3/uL (2.7-7.7); Neutrophil % 79.9 % (47-70); Platelet Count 191 K/mm3 (150-450); RBC Distribution Width CV 13.2 % (11.6-14.6); RBC Distribution Width SD 49.5 fl (35.1-43.9); Red Blood Count 4.37 M/mm3 (4.6-6.2); White Blood Count 7.8 K/mm3 (4.4-11.0)
--- NOTE | 2022-01-04 12:57 | EDS_ITS ---
HPI History of Present Illness Chief Complaint: General Illness Informant: patient and spouse/S.O. Narrative Narrative: Limitations due to memory issues with Parkinson's history. Spouse is present. Patient brought in by EMS from home. Worsening cough illness since yesterday. Spouse also sick yesterday. They deny any sick contacts. Nonvaccinated for COVID. History of 6 stents in the past no heart failure history seen. EMS reported fever of 102 had a blood pressure systolic 160s however pulse ox was in the 70s he was brought in on a nonrebreather. He does not wear home oxygen. Spouse states no history of COPD or asthma. 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 Home Medications losartan 25 mg PO DAILY 10/24/19 [History Last Taken 12/22/20] atorvastatin 20 mg PO DAILY 12/25/19 [History Last Taken 12/21/20] aspirin 81 mg PO DAILY 01/16/20 [History Last Taken 12/22/20] tamsulosin 0.8 mg PO QHS 01/16/20 [History Last Taken 12/21/20] carbidopa 25 mg-levodopa 100 mg tablet 1.5 tab PO TID tab 07/24/20 [History Last Taken 12/22/20] cholecalciferol (vitamin D3) 2,000 unit PO DAILY 09/08/20 [History Last Taken 12/22/20] acetaminophen 1,000 mg PO Q6H PRN PRN tab 09/25/20 [Rx Last Taken Unknown] escitalopram oxalate 10 mg PO DAILY tab 09/25/20 [Rx Last Taken 12/22/20] polysaccharide iron complex 150 mg PO DAILYCM #30 cap 09/25/20 [Rx Last Taken 12/21/20] omega 0-fzf-kck-fish oil [Fish Oil] 1,200 cap PO DAILY 12/22/20 [History Last Taken 12/22/20] hydrocortisone 10 mg tablet 10 mg PO DINNER #90 tab 05/25/21 [Rx Last Taken Unknown] hydrocortisone 10 mg tablet 20 mg PO BREAKFAST #180 tab 05/25/21 [Rx Last Taken Unknown] tolterodine 2 mg capsule,extended release 24 hr 2 cap PO DAILY 07/24/21 [History Last Taken Unknown] levothyroxine 112 mcg tablet 112 mcg PO DAILY #90 tab 08/25/21 [Rx Last Taken Unknown] Allergy/AdvReac Type Severity Reaction Status Date / Time No Known Allergies Allergy Verified 07/24/21 08:31 Family History Mother Skin cancer Cancer Skin and other unknown Sister Cancer Unknown type Surgical History History of back surgery History of cholecystectomy (~12/2019) Hx of colonoscopy Hx of elbow surgery Hx of heart artery stent Hx of left breast biopsy Social History Smoking Status: Never smoker second hand exposure: No alcohol intake: current alcohol intake frequency: holidays/special occasions only substance use type: does not use caffeine: Yes what type of physical activity do you participate in: none frequency: does not exercise ROS ROS ED Constitutional Constitutional ED: Denies chills, fever(s) or sweats Cardiovascular Cardiovascular: Denies chest pain Respiratory/Chest Respiratory/Chest: Reports cough and dyspnea Gastrointestinal Gastrointestinal: Reports nausea; Denies diarrhea or vomiting Genitourinary Genitourinary ED: Denies dysuria or urinary frequency Neurologic Neurologic: Reports weakness EXAM Physical Exam Const Vital Signs: 01/04/22 12:24 01/04/22 12:32 01/04/22 12:39 Temperature 97.8 F Temperature Source Temporal Pulse Rate 108 H 106 H Respiratory Rate 27 H 25 H Respiratory Effort Short of Breath Labored Respiratory Pattern Blood Pressure 83/45 L Blood Pressure Mean 57 Pulse Ox 96 95 Oxygen Delivery Method Non-Rebreather Non-Rebreather Oxygen Flow Rate (L/min) 15 Fraction of Inspired Oxygen (FIO2) 01/04/22 12:41 01/04/22 12:42 01/04/22 12:45 Temperature Temperature Source Pulse Rate 103 H Respiratory Rate 30 H Respiratory Effort Short of Breath Respiratory Pattern Tachypnea Blood Pressure 61/44 L Blood Pressure Mean 49 Pulse Ox 95 95 Oxygen Delivery Method Non-Rebreather Non-Rebreather Oxygen Flow Rate (L/min) Fraction of Inspired Oxygen (FIO2) 01/04/22 12:46 01/04/22 12:57 01/04/22 13:05 Temperature 101 F H Temperature Source Core Pulse Rate Respiratory Rate Respiratory Effort Respiratory Pattern Blood Pressure 92/51 L Blood Pressure Mean 64 Pulse Ox 87 Oxygen Delivery Method Non-Rebreather Oxygen Flow Rate (L/min) 15 Fraction of Inspired Oxygen (FIO2) 01/04/22 13:19 01/04/22 13:32 01/04/22 13:38 Temperature 101.2 F H 101.1 F H 101.2 F H Temperature Source Core Core Core Pulse Rate 97 99 Respiratory Rate 28 H 32 H Respiratory Effort Respiratory Pattern Blood Pressure 81/57 L 85/48 L Blood Pressure Mean 65 60 Pulse Ox 93 91 Oxygen Delivery Method Non-Rebreather Non-Rebreather Oxygen Flow Rate (L/min) 15 15 Fraction of Inspired Oxygen (FIO2) 01/04/22 13:46 Temperature Temperature Source Pulse Rate 99 Respiratory Rate 30 H Respiratory Effort Respiratory Pattern Blood Pressure Blood Pressure Mean Pulse Ox 92 Oxygen Delivery Method Oxygen Flow Rate (L/min) Fraction of Inspired Oxygen (FIO2) 75 Positive well nourished and well developed Constitutional Narrative: Nonrebreather at 15 L General Appearance ED: well developed and NAD HEENT Reports moist mucous membranes normocephalic and atraumatic Eyes PERRL, EOMs intact bilaterally and conjunctivae normal General Eye ED: Yes normal appearance of both eyes Neck no lymphadenopathy and supple General: Negative for tenderness Chest Wall Chest: Negative for tenderness Resp normal air movement Resp Narrative: coarse lung sounds Effort and Inspection: symmetric chest movement and other; Negative for respiratory distress Cardio regular rhythm and no murmurs Rate: tachycardic Peripheral Pulses: pulses 2+ throughout GI normal to inspection, nondistended, normoactive bowel sounds and non-tender Palpation: Negative for guarding or rebound tenderness present Back/Spine no CVA tenderness and no thoracic nor lumbar tenderness Extremity normal to inspection General Extremety ED: Negative for edema or tenderness General Extremity: Negative for edema Neuro CN's II-XII intact bilaterally and no sensory deficits noted Neuro Narrative: Alert and oriented to person and place, reported year was 2001. Sensorium / Orientation: awake and alert Skin no rashes or lesions noted and no wounds Skin Narrative: Warm skin. MDM MDM MDM Narrative Medical decision making narrative: Patient febrile on arrival all hypotensive into the 60s, fluid boluses were ordered. He has coronary disease history however is not on diuretic there is no echocardiogram in the system. No CHF clinical findings currently. EKG sinus rhythm nonspecific ST changes. He denies chest pains. Sepsis labs were ordered. 1 view chest x-ray reviewed by myself concerns for right lower lobe infiltrate. He was given Tylenol. He is not vaccinated for COVID. Nasal swabs were sent. In addition evaluation rec ords notes he does have secondary adrenal insufficiency with history of pituitary tumor with resection in the past. He is on hydro cortisone. Cortisol level was added, he is given IV Solu-Cortef of 100 mg. Patient ordered for initial 3 L of fluids covers at 30 cc/kg bolus. COVID testing have returned positive. He was given dexamethasone for his hypoxia. ABG pH of 7.39 PCO2 was 26 PaO2 of 81.9. Reevaluation good waveforms pulse ox 88% on nonrebreather he is transition over to Airvo high flow oxygen. Pulse ox stable from this. I spoke with hospitalist, I will hold off on antibiotics due to COVID diagnosis therefore antibiotics were canceled. Discussed patient's hypotension will likely need central line placement. An additional spoke with assistant counsel Dr. Robertson updated for ICU placement. Spouse was updated consented for central line placement. This was placed without complications. Levophed was started in the ED. Lactic acid returned at 9.1. He is continue on IV fluids. Creatinine at 2.11 up from 1.6 potassium 2.9 with oral replacement given. Patient admitted to ICU. Procedure note: Written consent. Timeout performed. Full sterile conditions. Ultrasound guided. Risk and benefits discussed with spouse. Ultrasound performed prior to procedure noted good location of right internal jugular. Was prepped with ChloraPrep, lidocaine used for local analgesia. Ultrasound guided Seldinger technique first stick with dark blood return. Guidewire, skin incision, vessel dilated. Triple-lumen catheter 7.5 Korean placed 16 cm. Dark blood return in all 3 lines. Flushed. Line was secured. Biopatch placed. Dressing placed. Patient taught procedure well. Post x-ray 1 view chest reviewed by myself notes good placement there is no pneumothorax. Appears to be increasing right lower lobe infiltrate. Lab Data Attestation: I reviewed the patient's lab results. Labs: Laboratory Results - last 24 hr 01/04/22 01/04/22 01/04/22 12:20 12:20 12:20 WBC 7.8 RBC 4.37 L Hgb 14.1 Hct 44.5 MCV 101.8 H MCH 32.3 H MCHC 31.7 L RDW Std Deviation 49.5 H RDW Coeff of Delisa 13.2 Plt Count 191 MPV 10.2 Immature Gran % (Auto) 0.400 Neut % (Auto) 79.9 H Lymph % (Auto) 16.3 L [place] % (Auto) 2.6 Eos % (Auto) 0.4 Baso % (Auto) 0.4 Absolute Neuts (auto) 6.2 Absolute Lymphs (auto) 1.27 Nucleated RBC % 0 PT 14.5 INR 1.2 APTT 29.2 Sodium 139 Potassium 2.9 L Chloride 102 Carbon Dioxide 19.0 L Anion Gap 18 H BUN 22 H Creatinine 2.11 H Estim Creat Clear Calc 28.83 Est GFR (MDRD) Af Amer 39 L Est GFR (MDRD) Non-Af 32 L BUN/Creatinine Ratio 10.4 Glucose 121 H Lactic Acid Calcium 8.8 Total Bilirubin 1.00 AST 72 H ALT 61 Alkaline Phosphatase 54 Troponin I High Sens Total Protein 6.7 Albumin 3.5 Globulin 3.2 Albumin/Globulin Ratio 1.1 Cortisol Urine Color Urine Clarity Urine pH Ur Specific [place] Urine Protein Urine Glucose (UA) Urine Ketones Urine Occult Blood Urine Nitrite Urine Bilirubin Urine Urobilinogen Ur Leukocyte Esterase Urine RBC Urine WBC Ur Squamous Epith Cells Urine Bacteria Urine Mucus 01/04/22 01/04/22 01/04/22 12:20 12:20 12:52 WBC RBC Hgb Hct MCV MCH MCHC RDW Std Deviation RDW Coeff of Delisa Plt Count MPV Immature Gran % (Auto) Neut % (Auto) Lymph % (Auto) [place] % (Auto) Eos % (Auto) Baso % (Auto) Absolute Neuts (auto) Absolute Lymphs (auto) Nucleated RBC % PT INR APTT Sodium Potassium Chloride Carbon Dioxide Anion Gap BUN Creatinine Estim Creat Clear Calc Est GFR (MDRD) Af Amer Est GFR (MDRD) Non-Af BUN/Creatinine Ratio Glucose Lactic Acid 9.1 H* Calcium Total Bilirubin AST ALT Alkaline Phosphatase Troponin I High Sens 81 H Total Protein Albumin Globulin Albumin/Globulin Ratio Cortisol Urine Color Yellow Urine Clarity Clear Urine pH 6.5 Ur Specific [place] 1.010 Urine Protein Negative Urine Glucose (UA) Normal Urine Ketones Negative Urine Occult Blood 10 H Urine Nitrite Negative Urine Bilirubin Negative Urine Urobilinogen Normal Ur Leukocyte Esterase Negative Urine RBC 0-5 SEEN Urine WBC 0 SEEN Ur Squamous Epith Cells 0-5 SEEN Urine Bacteria 0 SEEN Urine Mucus 0 SEEN 01/04/22 13:18 WBC RBC Hgb Hct MCV MCH MCHC RDW Std Deviation RDW Coeff of Delisa Plt Count MPV Immature Gran % (Auto) Neut % (Auto) Lymph % (Auto) [place] % (Auto) Eos % (Auto) Baso % (Auto) Absolute Neuts (auto) Absolute Lymphs (auto) Nucleated RBC % PT INR APTT Sodium Potassium Chloride Carbon Dioxide Anion Gap BUN Creatinine Estim Creat Clear Calc Est GFR (MDRD) Af Amer Est GFR (MDRD) Non-Af BUN/Creatinine Ratio Glucose Lactic Acid Calcium Total Bilirubin AST ALT Alkaline Phosphatase Troponin I High Sens Total Protein Albumin Globulin Albumin/Globulin Ratio Cortisol 8.50 Urine Color Urine Clarity Urine pH Ur Specific [place] Urine Protein Urine Glucose (UA) Urine Ketones Urine Occult Blood Urine Nitrite Urine Bilirubin Urine Urobilinogen Ur Leukocyte Esterase Urine RBC Urine WBC Ur Squamous Epith Cells Urine Bacteria Urine Mucus ABG Data ABG results: ABG 01/04/22 13:17 Specimen Type ART Sample Site R Brach pH 7.40 Bicarbonate Actual 15.9 L Total CO2 17 Base Excess -9 L O2 Saturation 96 O2 % 100 ABG pCO2 26.0 L ABG pO2 82 O2 Delivery Device NRB Radiography Diagnostic Testing: Clinical Impression(s) from Imaging Studies Chest X-Ray 01/04/22 13:00 IMPRESSION: Right lower lobe pneumonia and/or atelectasis. Electronically Signed: Jesus Vladislav, at 13:56 EDT , EKG Initial EKG: Attestation: I personally reviewed and interpreted this EKG as follows: Comments: Sinus rate of 100, nonspecific ST changes lateral leads T wave inversions lateral leads. There is no elevations noted. Critical Care Time Critical Care Time: Yes Critical care time (excluding procedures): 30-74 minutes, Discussing w/Patient &/or Family/Assistant Professor Of Geography, Discussing w/Consultants, Arranging Admission or Transfer, Performing Direct Patient Care at Bedside and - (45 minutes) Discharge Plan Dx/Rx/DC Orders Clinical Impression: Septic shock, Pneumonia due to 2019 novel coronavirus, Adrenal insufficiency, Coronary artery disease, GERTRUDE (acute kidney injury), Acute hypotension Disposition Disposition: Acute Care [facility] Discharge Date/Time: 01/04/22 15:32
[2022-01-04 12:58] LABS: International Normalized Ratio 1.2; Prothrombin Time (Protime)PT. 14.5 SECONDS (11.7-14.9)
[2022-01-04 12:59] LABS: Partial Thromboplast Time 29.2 Seconds (24.1-36.2)
--- NOTE | 2022-01-04 13:00 | RAD_ITS ---
INDICATION: cough EXAMINATION/TECHNIQUE: X-RAY - XR Chest 1 View COMPARISON: Acute abdomen including chest radiograph from 07/20/2021 FINDINGS: Support devices: None. There are patchy opacities in the right lung base. Left lung is relatively clear. No sizable pleural effusion or pneumothorax. Cardiomediastinal silhouette is within normal limits. Partially visualized lumbar fusion hardware. No acute findings in the bones or soft tissues. RAD/Chest 1 View (Portable) IMPRESSION: Right lower lobe pneumonia and/or atelectasis. Electronically Signed: Jesus Loomis, at 13:56 EDT ,
[2022-01-04 13:01] LABS: Bacteria 0 SEEN /hpf (None Seen); Mucous, Urine 0 SEEN /hpf (<or=2+); White Blood Cells 0 SEEN /hpf (0-5)
[2022-01-04] MEDS: Ondansetron 4 MG/2 ML Vial IV ×2 (13:06→21:07)
[2022-01-04 13:07] LABS: Color, Urine Yellow (Yellow); Glucose, Dipstick Normal (Normal); Ketone-Dipstick Negative (Negative); Leukocyte Esterase-Dipstick Negative /ul (Negative); Nitrite-Dipstick Negative (Negative); Occult Blood-Urine 10 /ul (Negative); Protein-Dipstick Negative (Negative); Urine Bilirubin Dipstick Negative (Negative); Urine Clarity Clear (Clear); Urine Urobilinogen Normal (Normal); Urine pH 6.5 (5.0 - 8.0)
[2022-01-04 13:08] LABS: ALB/GLOB Ratio 1.1 RATIO (0.9-2.4); AST(SGOT) 72 U/L (15-37); Alanine Aminotransfer ALT/SGPT 61 U/L (16-61); Albumin, Serum 3.5 g/dL (3.2-5.0); Alkaline Phosphatase 54 U/L (45-117); Anion Gap 18 (5-15); BUN 22 mg/dL (7-18); BUN/Creat Ratio 10.4 RATIO (10-20); Calcium,Total 8.8 mg/dL (8.5-10.1); Chloride 102 mmol/L (98-107); Creatinine, Serum 2.11 mg/dL (0.70-1.30); EST Glomerular Filtration Rate 32 mL/min (>60); Est Glom Filt Rate - Afr Amer 39 mL/min (>60); Estimated Creatinine Clearance 28.83 ml/min; Globulin 3.2 g/dL (2.2-4.2); Glucose 121 mg/dL (74-106); Potassium 2.9 mmol/L (3.5-5.1); Protein, Total 6.7 g/dL (6.4-8.2); Sodium Level 139 mmol/L (136-145)
[2022-01-04 13:14] LABS: Lactic Acid 9.1 mmol/L (0.4-1.9)
[2022-01-04 13:16] LABS: Red Blood Cells-Urine 0-5 SEEN /hpf (0-5); Squamous Epithelial Cells - UA 0-5 SEEN /hpf (0-5)
[2022-01-04] MEDS: Hydrocortisone Sod Succinate 100 MG/2 ML Vial IV ×3 (13:16→23:22)
[2022-01-04 13:20] LABS: Base Excess -9 mmol/L (-2 to +2); Bicarbonate 15.9 mmol/L (22-26); Blood Gas Specimen Type ART; FI02 100; O2 Delivery Device NRB; PO2 82 mmHG (75-100); SITE R Brach; SO2 96 % (95-99); Total Carbon Dioxide 17 mmol/L
[2022-01-04] MEDS: Potassium Chloride Oral Tablet 20 MEQ 60 MEQ PO (13:33)
[2022-01-04 13:39] LABS: Troponin-I HS 81 pg/mL (3.0-78.0)
[2022-01-04] MEDS: dexAMETHasone 10 MG/ML Vial 6 MG IV (13:39)
--- NOTE | 2022-01-04 13:56 | HP.PCM.HOS_ITS ---
HPI - General General Date of Admission: 01/04/22 Date of Service: 01/04/22 Chief Complaint: SOB - 1 day HPI Narrative KEN ALFRED, is a 81 M who presents the above. Patient is unvaccinated against SARS COVID-19 virus. 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 Patient was in his usual state of health until yesterday when he started having fever and shortness of breath with cough. His is also sick. They denied any other sick contact. He admits to feeling nauseous and has been vomiting. Denies any diarrhea. Abdomen feels distended. He admits to loss of sense of taste but not to smell Vitals in the ED showed blood pressure of 83/45, heart rate 108, respiratory 27, temperature 97.8 F, SPO2 was 87 % on 15 L nonrebreather. His WBC count was 7.8, hemoglobin 14.1, platelet count 191. Sodium is 139, potassium 2.9, bicarbonate 19, chloride 102, anion gap is 18, BUN is 22, creatinine is 2.11, lactic acid 9.1, LFTs unremarkable, UA unremarkable. Chest x-ray showed right lower lobe pneumonia and or atelectasis. 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 Home Medications losartan 25 mg PO DAILY 10/24/19 [History Last Taken 12/22/20] atorvastatin 20 mg PO DAILY 12/25/19 [History Last Taken 12/21/20] aspirin 81 mg PO DAILY 01/16/20 [History Last Taken 12/22/20] tamsulosin 0.8 mg PO QHS 01/16/20 [History Last Taken 12/21/20] carbidopa 25 mg-levodopa 100 mg tablet 1.5 tab PO TID tab 07/24/20 [History Last Taken 12/22/20] cholecalciferol (vitamin D3) 2,000 unit PO DAILY 09/08/20 [History Last Taken 12/22/20] acetaminophen 1,000 mg PO Q6H PRN PRN tab 09/25/20 [Rx Last Taken Unknown] escitalopram oxalate 10 mg PO DAILY tab 09/25/20 [Rx Last Taken 12/22/20] polysaccharide iron complex 150 mg PO DAILYCM #30 cap 09/25/20 [Rx Last Taken 12/21/20] omega 6-yfe-kag-fish oil [Fish Oil] 1,200 cap PO DAILY 12/22/20 [History Last Taken 12/22/20] hydrocortisone 10 mg tablet 10 mg PO DINNER #90 tab 05/25/21 [Rx Last Taken Unknown] hydrocortisone 10 mg tablet 20 mg PO BREAKFAST #180 tab 05/25/21 [Rx Last Taken Unknown] tolterodine 2 mg capsule,extended release 24 hr 2 cap PO DAILY 07/24/21 [History Last Taken Unknown] levothyroxine 112 mcg tablet 112 mcg PO DAILY #90 tab 08/25/21 [Rx Last Taken Unknown] Allergy/AdvReac Type Severity Reaction Status Date / Time No Known Allergies Allergy Verified 07/24/21 08:31 Family History Mother Skin cancer Cancer Skin and other unknown Sister Cancer Unknown type Surgical History History of back surgery History of cholecystectomy (~12/2019) Hx of colonoscopy Hx of elbow surgery Hx of heart artery stent Hx of left breast biopsy Social History Smoking Status: Never smoker second hand exposure: No alcohol intake: current alcohol intake frequency: holidays/special occasions only substance use type: does not use caffeine: Yes what type of physical activity do you participate in: none frequency: does not exercise ROS ROS Narrative Constitutional: Reports: Malaise, Weakness, Fatigue, Anorexia, Chills, Fever, Denies:Night Sweats, Weight Change Eyes: Denies: Blurred vision, Cataracts, Conjunctivae Inflammation, Pain, Redness, Vision Change HEENT: Admits to Difficulty Hearing, Denies: Difficulty Swallowing, Head Aches, Hearing Changes, Sinus Congestion, Sinus Drainage Cardiovascular: Denies: Chest Pain, Orthopnea, Palpitations Respiratory: Admits to Cough, Shortness of breath at rest, Sputum production Gastrointestinal: Admits to nausea and vomiting denies: Abdominal Pain Musculoskeletal: Denies: Joint Pain, Joint stiffness, Joint swelling, Joint Tenderness Skin: Denies: Rash, Wounds Neurological: Denies: Numbness, Tingling, Focal weakness Vital Signs Vital Signs Vital Signs: 01/04/22 12:24 01/04/22 12:32 01/04/22 12:39 Temperature 97.8 F Temperature Source Temporal Pulse Rate 108 H 106 H Respiratory Rate 27 H 25 H Respiratory Effort Short of Breath Labored Respiratory Pattern Blood Pressure 83/45 L Blood Pressure Mean 57 Pulse Ox 96 95 Oxygen Delivery Method Non-Rebreather Non-Rebreather Oxygen Flow Rate (L/min) 15 Fraction of Inspired Oxygen (FIO2) 01/04/22 12:41 01/04/22 12:42 01/04/22 12:45 Temperature Temperature Source Pulse Rate 103 H Respiratory Rate 30 H Respiratory Effort Short of Breath Respiratory Pattern Tachypnea Blood Pressure 61/44 L Blood Pressure Mean 49 Pulse Ox 95 95 Oxygen Delivery Method Non-Rebreather Non-Rebreather Oxygen Flow Rate (L/min) Fraction of Inspired Oxygen (FIO2) 01/04/22 12:46 01/04/22 12:57 01/04/22 13:05 Temperature 101 F H Temperature Source Core Pulse Rate Respiratory Rate Respiratory Effort Respiratory Pattern Blood Pressure 92/51 L Blood Pressure Mean 64 Pulse Ox 87 Oxygen Delivery Method Non-Rebreather Oxygen Flow Rate (L/min) 15 Fraction of Inspired Oxygen (FIO2) 01/04/22 13:19 01/04/22 13:32 01/04/22 13:38 Temperature 101.2 F H 101.1 F H 101.2 F H Temperature Source Core Core Core Pulse Rate 97 99 Respiratory Rate 28 H 32 H Respiratory Effort Respiratory Pattern Blood Pressure 81/57 L 85/48 L Blood Pressure Mean 65 60 Pulse Ox 93 91 Oxygen Delivery Method Non-Rebreather Non-Rebreather Oxygen Flow Rate (L/min) 15 15 Fraction of Inspired Oxygen (FIO2) 01/04/22 13:46 01/04/22 13:50 Temperature Temperature Source Pulse Rate 99 Respiratory Rate 30 H Respiratory Effort Respiratory Pattern Blood Pressure 77/42 L Blood Pressure Mean 53 Pulse Ox 92 Oxygen Delivery Method Oxygen Flow Rate (L/min) Fraction of Inspired Oxygen (FIO2) 75 Weight Weight: 95.1 kg Body Mass Index (BMI) 30.0 Physical Exam Narrative Physical exam: General: Alert, oriented x3, cooperative, no apparent distress, appears very frail, obese HEENT: Atraumatic Oral: Moist Mucosa Neck: Supple Lungs: Diminished to auscultation Cardiovascular: HS I+II, regular, no murmurs Abdomen: Bowel Sounds Present, Soft, Non Tender Extremities: Bilateral leg edema+1 Skin: No rashes, No breakdown Neurological: Grossly intact Psych/Mental Status: Appropriate Results Lab / Micro Data Result Diagrams: 01/04/22 12:20 01/04/22 12:20 Labs: Laboratory Results - last 24 hr 01/04/22 12:20: WBC 7.8, RBC 4.37 L, Hgb 14.1, Hct 44.5, MCV 101.8 H, MCH 32.3 H , MCHC 31.7 L, RDW Std Deviation 49.5 H, RDW Coeff of Delisa 13.2, Plt Count 191, MPV 10.2, Immature Gran % (Auto) 0.400, Neut % (Auto) 79.9 H, Lymph % (Auto) 16.3 L, [place] % (Auto) 2.6, Eos % (Auto) 0.4, Baso % (Auto) 0.4, Absolute Neuts (auto) 6.2, Absolute Lymphs (auto) 1.27, Nucleated RBC % 0 01/04/22 12:20: PT 14.5, INR 1.2, APTT 29.2 01/04/22 12:20: Sodium 139, Potassium 2.9 L, Chloride 102, Carbon Dioxide 19.0 L , Anion Gap 18 H, BUN 22 H, Creatinine 2.11 H, Estim Creat Clear Calc 28.83, Est GFR (MDRD) Af Amer 39 L, Est GFR (MDRD) Non-Af 32 L, BUN/Creatinine Ratio 10.4, Glucose 121 H, Calcium 8.8, Total Bilirubin 1.00, AST 72 H, ALT 61, Alkaline Phosphatase 54, Total Protein 6.7, Albumin 3.5, Globulin 3.2, Albumin/Globulin Ratio 1.1 01/04/22 12:20: Lactic Acid 9.1 H* 01/04/22 12:20: Troponin I High Sens 81 H 01/04/22 12:52: Urine Color Yellow, Urine Clarity Clear, Urine pH 6.5, Ur Speci fic [place] 1.010, Urine Protein Negative, Urine Glucose (UA) Normal, Urine Ketones Negative, Urine Occult Blood 10 H, Urine Nitrite Negative, Urine Bilirubin Negative, Urine Urobilinogen Normal, Ur Leukocyte Esterase Negative, Urine RBC 0-5 SEEN, Urine WBC 0 SEEN, Ur Squamous Epith Cells 0-5 SEEN, Urine Bacteria 0 SEEN, Urine Mucus 0 SEEN Micro: Microbiology 01/04/22 12:44 Nasal Secretion SARS-CoV-2 & FLU Antigen (Rapid) - Final SARS-CoV-2 (COVID 19) ABG Data ABG results: ABG 01/04/22 13:17 Specimen Type ART Sample Site R Brach pH 7.40 Bicarbonate Actual 15.9 L Total CO2 17 Base Excess -9 L O2 Saturation 96 O2 % 100 ABG pCO2 26.0 L ABG pO2 82 O2 Delivery Device NRB Radiology Impression Chest X-Ray 01/04/22 13:00 IMPRESSION: Right lower lobe pneumonia and/or atelectasis. Electronically Signed: Jesus Loomis, at 13:56 EDT , Assessment & Plan Assessment/Plan (1) Septic shock: (2) Pneumonia due to 2019 novel coronavirus: (3) Lactic acidosis: (4) GERTRUDE (acute kidney injury): (5) Hypokalemia: PLAN: 1. Acute hypoxic respiratory failure secondary to acute COVID-19 pneumonia Patient has underlying sleep apnea Patient presents on nonrebreather mask; was on Airvo at the time of admission He is unvaccinated against COVID-19 Stated symptoms started the day prior to admission We will continue to encourage use of incentive spirometer Pulmonology consulted 2. Septic shock secondary to acute COVID-19 pneumonia Patient is severely immunocompromise status respiratory macroadenoma removal, on chronic steroids Patient had evidence of organ dysfunction with lactic acidosis, GERTRUDE, respiratory failure Blood pressures are low, status post fluid boluses, central line Continue on IV hydrocortisone 100 mg every 6 We will continue to monitor Infectious disease and pulmonology consulted 3. Acute COVID-19 pneumonia with hypoxia, probable community-acquired pneumonia Chest x-ray showed right-sided infiltrates Would continue on IV Zosyn, check sputum cultures, urine Legionella and strep coccal antigen, blood cultures Will discontinue antibiotics if cultures come back negative Check D-dimer, CRP, procalcitonin 4. Lactic acidosis secondary to #1, will trend 5. Secondary adrenal insufficiency/male hypogonadism/hypothyroidism status post pituitary macroadenoma resection On chronic steroids 6. Hypertension, now hypotensive, on losartan We will hold blood pressure medications 7. CAD status post stents, continue on aspirin, statin 8. Parkinson's disease, continue on Sinemet 9. BPH/urine incontinence, continue on tamsulosin and tolterodine 10. DVT prophylaxis with Lovenox subcu 11. GI PPx- famotidine IV 12. I discussed and explained in details the various types of CODE STATUS-full code, DNR CCA, DNR CC. Patient and his chose full code and wants everything done to keep him alive, including CPR, intubation. Time spent dis cussing CODE STATUS 16 minutes Charges/Coding Visit Charges Inpatient E&M: 06202 Init Hosp L3 Procedures Hospitalists Procedures: 89786 Advncd Care Plan 30 Min
--- NOTE | 2022-01-04 14:57 | RAD_ITS ---
STUDY: X-RAY CHEST REASON FOR EXAM: Male, 81 years old. VERIFY CENTRAL LINE PLACEMENT TECHNIQUE: Single AP portable view of the chest. COMPARISON: JANUARY 04, 2022 at 12:59 PM FINDINGS: 1. Interval appearance of a right IJ catheter terminating in the proximal SVC 2. Reidentification of mild patchy interstitial infiltrates of the bilateral lower lobes, right greater than left 3. No visualized pneumothorax or consolidation or pleural effusion 4. Normal heart size 5. Stable mediastinal and osseous structures. Reidentification of spinal hardware. There is no demonstrated abnormality of the visualized soft tissue structures of the upper abdomen. RAD/CXR for Line Placement IMPRESSION: New right IJ catheter Electronically Signed: Markus Dangelo MD at 15:51 EDT ,
[2022-01-04] MEDS: 0.9% Saline Lock 10 ML Syringe IV (16:03)
[2022-01-04] MEDS: Famotidine 200 MG/20 ML MDV 20 MG in 0.9% Normal Saline (Pres. free 8 ML 300 MG IV (16:20)
[2022-01-04] MEDS: Potassium Chloride 10mEq/100mL 10 MEQ/100 ML IV.SOLN. 100 MEQ IV BOLUS ×2 (16:26→17:41)
[2022-01-04 16:39] LABS: BNP,B-Type NATRIURETIC PEPTIDE 399.9 pg/mL (0-100); LDH 206 U/L (87-241); Magnesium 1.7 mg/dL (1.6-2.6)
[2022-01-04 16:45] LABS: Reflex Lactate? Y
[2022-01-04 16:48] LABS: Procalcitonin 5.34 ng/mL (0.00-0.09)
[2022-01-04 17:37] LABS: Lactic Acid 5.5 mmol/L (0.4-1.9)
[2022-01-04 18:34] LABS: Fibrinogen 278 mg/dl (203-444)
[2022-01-04 18:40] LABS: D-Dimer Quantitative (DVT/PE) 5.19 FEU/ug/m (0.27-0.49)
[2022-01-04 19:01] LABS: M R Staph aureus DNA By PCR Negative (Negative); Probe Check PASS; Specimen Processing Control PASS
[2022-01-04] MEDS: Tamsulosin HCl 0.4 MG Capsule 0.8 MG PO (20:32)
[2022-01-04] MEDS: Carbidopa/Levodopa 25/100 Tablet PO (20:32)
[2022-01-04] MEDS: Atorvastatin Calcium 20 MG Tablet PO (20:32)
[2022-01-04] MEDS: Acetaminophen 325 MG Tablet 650 MG PO (21:08)
[2022-01-05] VITALS (65 sets, daily range): BP systolic 81–154; BP diastolic 50–121; PULSE 80–106; RESP 16–26; TEMP 36.1–36.9; O2SAT 92–100
[2022-01-05 04:34] LABS: Hematocrit 37.2 % (40-54); Mean Corp Hgb Conc 32.3 g/dL (32-36); Mean Corpuscular Hgb 31.9 pg (27.0-32.0); Mean Corpuscular Volume 98.9 fL (80-94); Mean Platelet Vol. 10.1 fl (6.2-12.0); NRBC Flagged by Analyzer 0 % (0-5); POSITIVE DIFFERENTIAL YES; POSITIVE MORPHOLOGY YES; Platelet Count 142 K/mm3 (150-450); RBC Distribution Width CV 13.3 % (11.6-14.6); RBC Distribution Width SD 49.2 fl (35.1-43.9); Red Blood Count 3.76 M/mm3 (4.6-6.2)
[2022-01-05 04:38] LABS: Differential Indicated SCAN CRITERIA MET
[2022-01-05 05:14] LABS: ALB/GLOB Ratio 0.9 RATIO (0.9-2.4); AST(SGOT) 101 U/L (15-37); Alanine Aminotransfer ALT/SGPT 26 U/L (16-61); Albumin, Serum 2.7 g/dL (3.2-5.0); Alkaline Phosphatase 33 U/L (45-117); Anion Gap 10 (5-15); BUN 27 mg/dL (7-18); Calcium,Total 7.8 mg/dL (8.5-10.1); Chloride 115 mmol/L (98-107); Creatinine, Serum 2.08 mg/dL (0.70-1.30); EST Glomerular Filtration Rate 33 mL/min (>60); Est Glom Filt Rate - Afr Amer 40 mL/min (>60); Estimated Creatinine Clearance 29.25 ml/min; Glucose 260 mg/dL (74-106); Potassium 4.3 mmol/L (3.5-5.1); Protein, Total 5.7 g/dL (6.4-8.2); Sodium Level 143 mmol/L (136-145)
[2022-01-05 05:54] LABS: Scan Smear per Review Criteria MANUAL DIFF
[2022-01-05 05:59] LABS: Lymphocyte 4 % (19-41); Metamyelocyte 27 % (0-1); Monocyte 2 % (0-10); Myelocyte 1 % (0-0); Neutrophil-Band 24 % (0-5); Neutrophil-Segmented 42 % (47-70); Total Cells Counted 100 (MANUAL DIFF)
[2022-01-05 06:00] LABS: Absolute Neutrophil Count 12.2 X10^3/uL (2.0-7.7); Neutrophil # 12.19 X10^3/uL (2.7-7.7)
[2022-01-05 06:01] LABS: Absolute Lymphocyte Count 0.52 X10^3/uL (0.83-4.51); Lymphocyte # 0.52 X10^3/ul (0.83-4.51); Platelet Estimate SLT DEC (ADEQ); Red Cell Morphology NORM C+C NORMAL (NORM C&C)
[2022-01-05] MEDS: Levothyroxine 112 MCG Tablet PO (06:12)
[2022-01-05] MEDS: Carbidopa/Levodopa 25/100 Tablet PO ×3 (06:12→22:12)
[2022-01-05] MEDS: Hydrocortisone Sod Succinate 100 MG/2 ML Vial IV ×3 (06:12→17:05)
--- NOTE | 2022-01-05 07:20 | CON.PCM.CC_ITS ---
Assessment & Plan Assessment/Plan (1) Pneumonia due to 2019 novel coronavirus: (2) Septic shock: (3) GERTRUDE (acute kidney injury): (4) Parkinson disease: (5) Adrenal insufficiency: PLAN: RECOMMENDATIONS: 1. Continue empiric Zosyn. No Vanc given negative MRSA 2. Continue stress dose steroids 3. Wean supplemental oxygen as tolerated 4. No further fluid boluses 5. Wean pressors as tolerated 6. Obtain C. difficile 7. Possible BiPAP with sleep IMPRESSIONS: 1. Acute hypoxic respiratory failure secondary to COVID-19 pneumonia with possible superinfection Patient's x-rays not typical of COVID-19 at this time. Patient did receive significant amounts of IV fluids in the ER. Would not recommend continuing fluid boluses as this does increase his risk for hypoxic respiratory failure. Patient appears to be tolerating Airvo at this time. Patient does have a significant bandemia with a predominant right lower lobe infiltrate. Agree with empiric antibiotics. COVID-19 is positive and patient is unvaccinated. Await infectious disease recommendations. 2. Septic shock versus adrenal insufficiency/acute kidney injury Patient with less than optimal response by cortisol on presentation. However, patient also has a significant bandemia noted and a right lower lobe infiltrate. Patient should not be receiving additional IV fluids as this can increase his risk of worsening hypoxic respiratory failure. Patient is on pressors and tolerating well. Continue to wean as tolerated. Lactic acid is improving. Clinical suspicion for prerenal etiology. Continue to support blood pressure. No indication for renal replacement therapy at this time. 3. Parkinson's/secondary adrenal insufficiency/post pituitary macroadenoma resection Patient should be continued on his parkinsonian meds. Hydrocortisone has been increased given problems 1 and 2. Patient can also be continued on his baseline endocrine medications. Would not recommend TSH evaluation. 4. Advanced age/hypertension/CAD status post stents/BPH Complicates care, management, recovery and prognosis. Antihypertensive should be held given problem #2. Thompson catheter can be used for BPH if necessary. Hospitalist did address CODE STATUS, but the order was not placed. Order placed per hospitalist documentation. I did not discuss this with the . TIME: 37 minutes critical care time spent addressing patient's acute hypoxic respiratory failure, shock, acute kidney injury, review of all data and collaboration with care team HPI Consult Data Date of Consult: 01/05/22 HPI Narrative HPI Narrative: KEN ALFRED is an 81 M, with past medical history listed below, who presents to [facility] on 01/04/2022 secondary to to generalized illness. Patient reportedly had not been feeling normal for the past month. Patient states that he started to have a cough about a month ago, but yesterday presented to the ER secondary to his spouses request. Patient did not had any sick contacts, but is not vaccinated against COVID-19. Patient states his spouse was also feeling sick yesterday. Patient does have a significant cardiac history, but when EMS arrived patient was noted to have a fever of 102 ?F with a pulse ox in the 70s. Patient does not have any history of COPD or asthma at baseline. Patient has not required supplemental oxygen previously. Patient does suffer from Parkinson's disease and has had some adrenal insufficiency at baseline requiring hydrocortisone. In the ER, patient was febrile to 101.2 ?F, tachycardic at 108 bpm and hypo tensive at 83/45. Patient was requiring a nonrebreather to maintain saturations. Laboratory work-up showed a white blood cell count of 7.8, hemoglobin of 14.1 and platelets of 191. Coagulation studies were within normal limits. Patient did have an elevated creatinine of 2.11 with a potassium of 2.9 and a bicarb of 19. Liver function studies were relatively unremarkable, but lactate was elevated at 9.1. Troponin and UA were negative. Patient only had a cortisol of 8.5 and an ABG showed adequate oxygenation and ventilation on a nonrebreather. Chest x-ray showed a right lower lobe infiltrate and EKG showed sinus tachycardia. Given patient's persistent hypotension, patient did have 3 L of IV fluids given, dexamethasone and a central line. Patient was not initially placed on antibiotics as his COVID came back positive, but these were subsequently started on the floor. Since being in the intensive care unit, patient has required Levophed to maintain blood pressures. Patient has had several liquid bowel movements. Patient subjectively feels slightly improved compared to previous. Patient denies any history of alcohol, tobacco or illicit drugs. 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 Patient has noted some swelling of his lower extremities recently. Patient was recently admitted to [facility] secondary to generalized weakness in February. Patient has been following with endocrinology secondary to secondary adrenal insufficiency. Patient has had multiple labs before and appears to have a creatinine around 1.6 at baseline. Review of systems otherwise negative from a constitutional, HEENT, respiratory, cardiovascular, GI, genitourinary, musculoskeletal, skin, neurologic, psychiatric and hematologic system unless stated above. [facility] Medical History Abnormal ultrasound of breast Acute cholecystitis Arthritis CAD in [place] artery Cholecystitis Fatigue History of DVT (deep vein thrombosis) History of heart attack History of pituitary tumor resection Left breast lump Low back problem Parkinson disease pituitary macroadenoma resection Postoperative abscess Preop cardiovascular exam Secondary adrenal insufficiency Secondary hypothyroidism Secondary male hypogonadism Home Medications losartan 25 mg PO DAILY 10/24/19 [History Last Taken 12/22/20] atorvastatin 20 mg PO DAILY 12/25/19 [History Last Taken 12/21/20] aspirin 81 mg PO DAILY 01/16/20 [History Last Taken 12/22/20] tamsulosin 0.8 mg PO QHS 01/16/20 [History Last Taken 12/21/20] carbidopa 25 mg-levodopa 100 mg tablet 1.5 tab PO TID tab 07/24/20 [History Last Taken 12/22/20] cholecalciferol (vitamin D3) 2,000 unit PO DAILY 09/08/20 [History Last Taken 12/22/20] acetaminophen 1,000 mg PO Q6H PRN PRN tab 09/25/20 [Rx Last Taken Unknown] escitalopram oxalate 10 mg PO DAILY tab 09/25/20 [Rx Last Taken 12/22/20] polysaccharide iron complex 150 mg PO DAILYCM #30 cap 09/25/20 [Rx Last Taken 12/21/20] omega 6-zpi-kbi-fish oil [Fish Oil] 1,200 cap PO DAILY 12/22/20 [History Last Taken 12/22/20] hydrocortisone 10 mg tablet 10 mg PO DINNER #90 tab 05/25/21 [Rx Last Taken U nknown] hydrocortisone 10 mg tablet 20 mg PO BREAKFAST #180 tab 05/25/21 [Rx Last Taken Unknown] tolterodine 2 mg capsule,extended release 24 hr 2 cap PO DAILY 07/24/21 [History Last Taken Unknown] levothyroxine 112 mcg tablet 112 mcg PO DAILY #90 tab 08/25/21 [Rx Last Taken Unknown] Allergy/AdvReac Type Severity Reaction Status Date / Time No Known Allergies Allergy Verified 07/24/21 08:31 Family History Mother Skin cancer Cancer Skin and other unknown Sister Cancer Unknown type Surgical History History of back surgery History of cholecystectomy (~12/2019) Hx of colonoscopy Hx of elbow surgery Hx of heart artery stent Hx of left breast biopsy Social History Smoking Status: Never smoker second hand exposure: No alcohol intake: current alcohol intake frequency: holidays/special occasions o nly substance use type: does not use caffeine: Yes what type of physical activity do you participate in: none frequency: does not exercise ROS ROS Narrative See HPI Physical Exam Const alert, oriented x3 and no apparent distress General Appearance: frail HEENT normocephalic, head/scalp atraumatic and moist oral mucous membranes HEENT Narrative: Right IJ clean, dry and intact Eyes PERRL and EOMs intact bilaterally Neck full ROM General: CVC in place Chest inspection of chest normal Chest: symmetrical chest wall rise; Negative for crepitus Resp Auscultation: rhonchi right lower and diminished lung sounds; Negative for rales or wheezes Cardio regular rate, regular rhythm, S1 normal heart sound, S2 normal heart sound, no murmurs, no rub and no gallops GI normal to inspection, nondistended, normoactive bowel sounds no CVA tenderness Extremity General Extremity: edema bilateral (1+) lower extremity Skin Skin Narrative: Dermal atrophy noted Neuro oriented x3 Neuro Narrative: Cogwheel movements. Psych cooperative Mood & Affect: flat affect Lab / Micro Data Result Diagrams: 01/05/22 04:20 01/05/22 04:20 Labs: Laboratory Results - last 24 hr 01/04/22 12:20: WBC 7.8, RBC 4.37 L, Hgb 14.1, Hct 44.5, MCV 101.8 H, MCH 32.3 H , MCHC 31.7 L, RDW Std Deviation 49.5 H, RDW Coeff of Delisa 13.2, Plt Count 191, MPV 10.2, Immature Gran % (Auto) 0.400, Neut % (Auto) 79.9 H, Lymph % (Auto) 16.3 L, [place] % (Auto) 2.6, Eos % (Auto) 0.4, Baso % (Auto) 0.4, Absolute Neuts (auto) 6.2, Absolute Lymphs (auto) 1.27, Nucleated RBC % 0 01/04/22 12:20: PT 14.5, INR 1.2, APTT 29.2 01/04/22 12:20: Sodium 139, Potassium 2.9 L, Chloride 102, Carbon Dioxide 19.0 L , Anion Gap 18 H, BUN 22 H, Creatinine 2.11 H, Estim Creat Clear Calc 28.83, Est GFR (MDRD) Af Amer 39 L, Est GFR (MDRD) Non-Af 32 L, BUN/Creatinine Ratio 10.4, Glucose 121 H, Calcium 8.8, Total Bilirubin 1.00, AST 72 H, ALT 61, Alkaline Phosphatase 54, Total Protein 6.7, Albumin 3.5, Globulin 3.2, Albumin/Globulin Ratio 1.1 01/04/22 12:20: Lactic Acid 9.1 H* 01/04/22 12:20: Troponin I High Sens 81 H 01/04/22 12:52: Urine Color Yellow, Urine Clarity Clear, Urine pH 6.5, Ur Specific [place] 1.010, Urine Protein Negative, Urine Glucose (UA) Normal, Urine Ketones Negative, Urine Occult Blood 10 H, Urine Nitrite Negative, Urine Bilirubin Negative, Urine Urobilinogen Normal, Ur Leukocyte Esterase Negative, Urine RBC 0-5 SEEN, Urine WBC 0 SEEN, Ur Squamous Epith Cells 0-5 SEEN, Urine Bacteria 0 SEEN, Urine Mucus 0 SEEN 01/04/22 13:18: Cortisol 8.50 01/04/22 15:55: MRSA (PCR) Negative 01/04/22 16:00: Fibrinogen 278, D-Dimer Quant (PE/DVT) 5.19 H* 01/04/22 16:00: Magnesium 1.7, Lactate Dehydrogenase 206, C-React Prot Ext Range 46.80 H 01/04/22 16:00: B-Natriuretic Peptide 399.9 H 01/04/22 16:00: Procalcitonin 5.34 H 01/04/22 16:00: Lactic Acid 5.5 H* 01/05/22 04:20: WBC 13.0 H, RBC 3.76 L, Hgb 12.0 L, Hct 37.2 L, MCV 98.9 H, MCH 31.9, MCHC 32.3, RDW Std Deviation 49.2 H, RDW Coeff of Delisa 13.3, Plt Count 142 L, MPV 10.1, Immature Gran % (Auto) CREW MESS ATTENDANT, Neut % (Auto) CREW MESS ATTENDANT, Lymph % (Auto) CREW MESS ATTENDANT, [place] % (Auto) CREW MESS ATTENDANT, Eos % (Auto) CREW MESS ATTENDANT, Baso % (Auto) CREW MESS ATTENDANT, Absolute Neuts (auto) 12.2 H, Absolute Lymphs (auto) 0.52 L, Total Counted 100, Neutrophils % (Manual) 42 L , Band Neutrophils % 24 H, Lymphocytes % (Manual) 4 L, Monocytes % (Manual) 2, Metamyelocytes % 27 H, Myelocytes % 1 H, Nucleated RBC % 0, Diff Path Review December, Platelet Estimate SLT DEC, RBC Morphology NORM C+C 01/05/22 04:20: Sodium 143, Potassium 4.3, Chloride 115 H, Carbon Dioxide 18.0 L , Anion Gap 10, BUN 27 H, Creatinine 2.08 H, Estim Creat Clear Calc 29.25, Est GFR (MDRD) Af Amer 40 L, Est GFR (MDRD) Non-Af 33 L, BUN/Creatinine Ratio 13.0, Glucose 260 H, Calcium 7.8 L, Total Bilirubin 0.70, AST 101 H, ALT 26, Alkaline Phosphatase 33 L, Total Protein 5.7 L, Albumin 2.7 L, Globulin 3.0, Albumin/Globulin Ratio 0.9 Micro: Microbiology 01/04/22 15:42 Mucosa - Nasopharyngeal Respiratory Panel (PCR) - Final 01/04/22 16:25 Urine Catheter - Thompson Legionella Antigen - Final 01/04/22 16:25 Urine Catheter - Thompson Streptococcus pneumoniae Antigen (M - Final 01/04/22 12:44 Nasal Secretion SARS-CoV-2 & FLU Antigen (Rapid) - Final SARS-CoV-2 (COVID 19) ABG Data ABG results: ABG 01/04/22 13:17 Specimen Type ART Sample Site R Brach pH 7.40 Bicarbonate Actual 15.9 L Total CO2 17 Base Excess -9 L O2 Saturation 96 O2 % 100 ABG pCO2 26.0 L ABG pO2 82 O2 Delivery Device NRB Radiology Impression Chest X-Ray 01/04/22 13:00 IMPRESSION: Right lower lobe pneumonia and/or atelectasis. Electronically Signed: Jesus Loomis, at 13:56 EDT , Chest X-Ray 01/04/22 14:57 IMPRESSION: New right IJ catheter Electronically Signed: Markus Dangelo MD at 15:51 EDT , Charges/Coding Procedures Hospitalists Procedures: [id number] Critial Care 1st Hr
--- NOTE | 2022-01-05 08:00 | PN.HOSP_ITS ---
Subjective Subjective Follow-up on acute hypoxic respiratory failure/septic shock/acute COVID-19 patient/community-acquired pneumonia: Patient was seen and examined. Overnight, he went up on his Levophed requirement. He however improved and has come down to about 5 mcg/min. No other acute events overnight. Objective Data Objective Data Vital Signs: Vital Signs Temp Pulse Resp BP Pulse Ox 97.7 F L 99 22 H 109/66 96 01/05/22 05:00 01/05/22 07:00 01/05/22 07:00 01/05/22 07:00 01/05/22 07:00 Oxygen Flow Rate (L/min) 50 Oxygen Delivery Method Airvo Weight: 96 kg Body Mass Index (BMI) 30.7 Intake & Output: Intake and Output for Last 24 Hours 01/03/22 01/04/22 01/05/22 23:59 23:59 23:59 Intake Total 3850.73 / 3869.48 630.19 / 630.19 Output Total 600 / 925 1225 / 1225 Balance 3250.73 / 2944.48 -594.81 / -594.81 Lab / Micro Data Result Diagrams: 01/05/22 04:20 01/05/22 04:20 Labs: Laboratory Results - last 24 hr 01/04/22 12:20: WBC 7.8, RBC 4.37 L, Hgb 14.1, Hct 44.5, MCV 101.8 H, MCH 32.3 H , MCHC 31.7 L, RDW Std Deviation 49.5 H, RDW Coeff of Delisa 13.2, Plt Count 191, MPV 10.2, Immature Gran % (Auto) 0.400, Neut % (Auto) 79.9 H, Lymph % (Auto) 16.3 L, Desha % (Auto) 2.6, Eos % (Auto) 0.4, Baso % (Auto) 0.4, Absolute Neuts (auto) 6.2, Absolute Lymphs (auto) 1.27, Nucleated RBC % 0 01/04/22 12:20: PT 14.5, INR 1.2, APTT 29.2 01/04/22 12:20: Sodium 139, Potassium 2.9 L, Chloride 102, Carbon Dioxide 19.0 L , Anion Gap 18 H, BUN 22 H, Creatinine 2.11 H, Estim Creat Clear Calc 28.83, Est GFR (MDRD) Af Amer 39 L, Est GFR (MDRD) Non-Af 32 L, BUN/Creatinine Ratio 10.4, Glucose 121 H, Calcium 8.8, Total Bilirubin 1.00, AST 72 H, ALT 61, Alkaline Phosphatase 54, Total Protein 6.7, Albumin 3.5, Globulin 3.2, Albumin/Globulin Ratio 1.1 01/04/22 12:20: Lactic Acid 9.1 H* 01/04/22 12:20: Troponin I High Sens 81 H 01/04/22 12:52: Urine Color Yellow, Urine Clarity Clear, Urine pH 6.5, Ur Specific [place] 1.010, Urine Protein Negative, Urine Glucose (UA) Normal, Urine Ketones Negative, Urine Occult Blood 10 H, Urine Nitrite Negative, Urine Bilirubin Negative, Urine Urobilinogen Normal, Ur Leukocyte Esterase Negative, Urine RBC 0-5 SEEN, Urine WBC 0 SEEN, Ur Squamous Epith Cells 0-5 SEEN, Urine Bacteria 0 SEEN, Urine Mucus 0 SEEN 01/04/22 13:18: Cortisol 8.50 01/04/22 15:55: MRSA (PCR) Negative 01/04/22 16:00: Fibrinogen 278, D-Dimer Quant (PE/DVT) 5.19 H* 01/04/22 16:00: Magnesium 1.7, Lactate Dehydrogenase 206, C-React Prot Ext Range 46.80 H 01/04/22 16:00: B-Natriuretic Peptide 399.9 H 01/04/22 16:00: Procalcitonin 5.34 H 01/04/22 16:00: Lactic Acid 5.5 H* 01/05/22 04:20: WBC 13.0 H, RBC 3.76 L, Hgb 12.0 L, Hct 37.2 L, MCV 98.9 H, MCH 31.9, MCHC 32.3, RDW Std Deviation 49.2 H, RDW Coeff of Delisa 13.3, Plt Count 142 L, MPV 10.1, Immature Gran % (Auto) [employer] AIRCREWMAN, Neut % (Auto) [employer]CRE[employer]MAN, Lymph % (Auto) [employer]CREWMAN, Desha % (Auto) [employer]CREWMAN, Eos % (Auto) [employer]CRE[employer], Baso % (Auto) [employer]CREWMAN, Absolute Neuts (auto) 12.2 H, Absolute Lymphs (auto) 0.52 L, Total Counted 100, Neutrophils % (Manual) 42 L , Band Neutrophils % 24 H, Lymphocytes % (Manual) 4 L, Monocytes % (Manual) 2, Metamyelocytes % 27 H, Myelocytes % 1 H, Nucleated RBC % 0, Diff Path Review May foll, Platelet Estimate SLT DEC, RBC Morphology NORM C+C 01/05/22 04:20: Sodium 143, Potassium 4.3, Chloride 115 H, Carbon Dioxide 18.0 L , Anion Gap 10, BUN 27 H, Creatinine 2.08 H, Estim Creat Clear Calc 29.25, Est GFR (MDRD) Af Amer 40 L, Est GFR (MDRD) Non-Af 33 L, BUN/Creatinine Ratio 13.0, Glucose 260 H, Calcium 7.8 L, Total Bilirubin 0.70, AST 101 H, ALT 26, Alkaline Phosphatase 33 L, Total Protein 5.7 L, Albumin 2.7 L, Globulin 3.0, Albumin/Globulin Ratio 0.9 Micro: Microbiology 01/04/22 15:42 Mucosa - Nasopharyngeal Respiratory Panel (PCR) - Final 01/04/22 16:25 Urine Catheter - Thompson Legionella Antigen - Final 01/04/22 16:25 Urine Catheter - Thompson Streptococcus pneumoniae Antigen (M - Final 01/04/22 12:44 Nasal Secretion SARS-CoV-2 & FLU Antigen (Rapid) - Final SARS-CoV-2 (COVID 19) ABG Data ABG results: ABG 01/04/22 13:17 Specimen Type ART Sample Site R Brach pH 7.40 Bicarbonate Actual 15.9 L Total CO2 17 Base Excess -9 L O2 Saturation 96 O2 % 100 ABG pCO2 26.0 L ABG pO2 82 O2 Delivery Device NRB Radiography Diagnostic Testing: Radiology Impression Chest X-Ray 01/04/22 13:00 IMPRESSION: Right lower lobe pneumonia and/or atelectasis. Electronically Signed: Jesus Loomis, at 13:56 EDT , Chest X-Ray 01/04/22 14:57 IMPRESSION: New right IJ catheter Electronically Signed: Markus Dangelo MD at 15:51 EDT , Physical Exam Narrative Physical exam: General: Alert, oriented x3, cooperative, no apparent distress, appears very frail, obese HEENT: Atraumatic Oral: Moist Mucosa Neck: Supple Lungs: Diminished to auscultation Cardiovascular: HS I+II, regular, no murmurs Abdomen: Bowel Sounds Present, Soft, Non Tender Extremities: Bilateral leg edema+1 Skin: No rashes, No breakdown Neurological: Grossly intact Psych/Mental Status: Appropriate Assessment & Plan Assessment/Plan (1) Septic shock: (2) Pneumonia due to 2019 novel coronavirus: (3) Lactic acidosis: (4) GERTRUDE (acute kidney injury): (5) Hypokalemia: PLAN: 1. Acute hypoxic respiratory failure secondary to acute COVID-19 pneumonia, slowly improving Patient with underlying sleep apnea Patient presented on nonrebreather mask; managed on Airvo overnight, oxygen requirements coming down He is unvaccinated against COVID-19 Continue to encourage use of incentive spirometer Pulmonology consulted 2. Septic shock secondary to Acute COVID-19 pneumonia/probable pneumonia, improving Vasopressor use is decreasing Patient is severely immunocompromised, status post pituitary macroadenoma remova l, on chronic steroids Patient had evidence of organ dysfunction with lactic acidosis, GERTRUDE, respiratory failure Status post fluid boluses, on pressors Continue on IV hydrocortisone 100 mg every 6h Infectious disease and pulmonology following 3. Acute COVID-19 pneumonia with hypoxia, probable community-acquired pneumonia Chest x-ray showed right-sided infiltrates Procalcitonin elevated at 5.34, CRP is 46.80 Respiratory panel, urine for Legionella and streptococcal antigen are negative Sputum cultures pending Continue on IV Zosyn 4. Elevated D-dimer, unable to do CTA of the chest to rule out acute PE Continue to treat with therapeutic Lovenox 5. Lactic acidosis secondary to #1, will trend 6. Hypertension, now hypotensive, on pressors Patient was on losartan Continue to hold losartan 7. CAD status post stents, continue on aspirin, statin 8. Parkinson's disease, continue on Sinemet 9. BPH/urine incontinence, continue on tamsulosin and tolterodine 10. DVT prophylaxis with Lovenox subcu 11.GI PPx- famotidine IV Charges/Coding Visit Charges Inpatient E&M: 65902 Subs Hosp L3
[2022-01-05] MEDS: Aspirin E.C. 81 MG Tablet PO (08:27)
[2022-01-05] MEDS: Tolterodine Tartrate 4 MG CAP.SA PO (08:27)
[2022-01-05] MEDS: Enoxaparin 100 MG/ML Syringe 90 MG SC (08:28)
[2022-01-05] MEDS: Menthol/Lanolin/Calamine/Znox 113 GM Tube 1 APPLIC TOPICAL ×2 (08:28→22:12)
[2022-01-05] MEDS: Famotidine 200 MG/20 ML MDV 20 MG in 0.9% Normal Saline (Pres. free 8 ML 300 MG IV (08:28)
[2022-01-05] MEDS: CHLORHEXIDINE GLUC 2% CLOTH 1 EACH TOWELETTE TOPICAL (08:28)
--- NOTE | 2022-01-05 10:33 | PCM.CONS.GEN ---
Assessment & Plan Assessment/Plan (1) Septic shock: PLAN: Sx started 01/01. Unvaccinated. On iv steroids. Will give dose of remdesivir, check labs in AM. Cont zosyn for empiric bacterial coverage for now. D-dimer was high, on therapeutic lovenox. Recommended vaccination in next 1-2 months. Will follow, thank you (2) Pneumonia due to 2019 novel coronavirus: (3) GERTRUDE (acute kidney injury): HPI Consult Data Date of Consult: 01/05/22 HPI Narrative HPI Narrative: KEN ALFRED, is a 81 M who presented with fatigue starting 01/01, then n/v on 01/03 with fever over 102. Had changes in taste/smell, worsening dyspnea and cough. EMS called, taken to ED, admitted to icu on zosyn, pressor, airvo. Feeling about the same today. History obtained from his . He reports symptoms going on for about a month. Unvaccinated for covid. also tested (+), has URI symptoms, feeling better. Full ROS performed and neg except as noted above. [facility] Medical History Abnormal ultrasound of breast Acute cholecystitis Arthritis CAD in [place] artery Cholecystitis Fatigue History of DVT (deep vein thrombosis) History of heart attack History of pituitary tumor resection Left breast lump Low back problem Parkinson disease pituitary macroadenoma resection Postoperative abscess Preop cardiovascular exam Secondary adrenal insufficiency Secondary hypothyroidism Secondary male hypogonadism Home Medications losartan 25 mg PO DAILY 10/24/19 [History Last Taken 12/22/20] atorvastatin 20 mg PO DAILY 12/25/19 [History Last Taken 12/21/20] aspirin 81 mg PO DAILY 01/16/20 [History Last Taken 12/22/20] tamsulosin 0.8 mg PO QHS 01/16/20 [History Last Taken 12/21/20] carbidopa 25 mg-levodopa 100 mg tablet 1.5 tab PO TID tab 07/24/20 [History Last Taken 12/22/20] cholecalciferol (vitamin D3) 2,000 unit PO DAILY 09/08/20 [History Last Taken 12/22/20] acetaminophen 1,000 mg PO Q6H PRN PRN tab 09/25/20 [Rx Last Taken Unknown] escitalopram oxalate 10 mg PO DAILY tab 09/25/20 [Rx Last Taken 12/22/20] polysaccharide iron complex 150 mg PO DAILYCM #30 cap 09/25/20 [Rx Last Taken 12/21/20] omega [id number]-tmf-[id number]-fish oil [Fish Oil] 1,200 cap PO DAILY 12/22/20 [History Last Taken 12/22/20] hydrocortisone 10 mg tablet 10 mg PO DINNER #90 tab 05/25/21 [Rx Last Taken Unknown] hydrocortisone 10 mg tablet 20 mg PO BREAKFAST #180 tab 05/25/21 [Rx Last Taken Unknown] tolterodine 2 mg capsule,extended release 24 hr 2 cap PO DAILY 07/24/21 [History Last Taken Unknown] levothyroxine 112 mcg tablet 112 mcg PO DAILY #90 tab 08/25/21 [Rx Last Taken Unknown] Allergy/AdvReac Type Severity Reaction Status Date / Time No Known Allergies Allergy Verified 07/24/21 08:31 Family History Mother Skin cancer Cancer Skin and other unknown Sister Cancer Unknown type Surgical History History of back surgery History of cholecystectomy (~12/2019) Hx of colonoscopy Hx of elbow surgery Hx of heart artery stent Hx of left breast biopsy Social History Smoking Status: Never smoker second hand exposure: No alcohol intake: current alcohol intake frequency: holidays/special occasions only substance use type: does not use caffeine: Yes what type of physical activity do you participate in: none frequency: does not exercise Physical Exam Const alert and no apparent distress General Appearance: cooperative Exam Limitations: no limitations HEENT normocephalic and head/scalp atraumatic Eyes PERRL and EOMs intact bilaterally Neck supple and No nodes Resp clear to auscultation bilaterally Auscultation: diminished lung sounds Cardio Rate: tachycardic GI soft to palpation, non-tender and non-distended Extremity no clubbing, cyanosis or edema Skin no rashes or lesions noted Neuro CN's II-XII intact bilaterally Lab / Micro Data Result Diagrams: 01/05/22 04:20 01/05/22 04:20 Labs: Laboratory Results - last 24 hr 01/04/22 12:20: WBC 7.8, RBC 4.37 L, Hgb 14.1, Hct 44.5, MCV 101.8 H, MCH 32.3 H, MCHC 31.7 L, RDW Std Deviation 49.5 H, RDW Coeff of Delisa 13.2, Plt Count 191, MPV 10.2, Immature Gran % (Auto) 0.400, Neut % (Auto) 79.9 H, Lymph % (Auto) 16.3 L, [place] % (Auto) 2.6, Eos % (Auto) 0.4, Baso % (Auto) 0.4, Absolute Neuts (auto) 6.2, Absolute Lymphs (auto) 1.27, Nucleated RBC % 0 01/04/22 12:20: PT 14.5, INR 1.2, APTT 29.2 01/04/22 12:20: Sodium 139, Potassium 2.9 L, Chloride 102, Carbon Dioxide 19.0 L, Anion Gap 18 H, BUN 22 H, Creatinine 2.11 H, Estim Creat Clear Calc 28.83, Est GFR (MDRD) Af Amer 39 L, Est GFR (MDRD) Non-Af 32 L, BUN/Creatinine Ratio 10.4, Glucose 121 H, Calcium 8.8, Total Bilirubin 1.00, AST 72 H, ALT 61, Alkaline Phosphatase 54, Total Protein 6.7, Albumin 3.5, Globulin 3.2, Albumin/Globulin Ratio 1.1 01/04/22 12:20: Lactic Acid 9.1 H* 01/04/22 12:20: Troponin I High Sens 81 H 01/04/22 12:52: Urine Color Yellow, Urine Clarity Clear, Urine pH 6.5, Ur Specific [place] 1.010, Urine Protein Negative, Urine Glucose (UA) Normal, Urine Ketones Negative, Urine Occult Blood 10 H, Urine Nitrite Negative, Urine Bilirubin Negative, Urine Urobilinogen Normal, Ur Leukocyte Esterase Negative, Urine RBC 0-5 SEEN, Urine WBC 0 SEEN, Ur Squamous Epith Cells 0-5 SEEN, Urine Bacteria 0 SEEN, Urine Mucus 0 SEEN 01/04/22 13:18: Cortisol 8.50 01/04/22 15:55: MRSA (PCR) Negative 01/04/22 16:00: Fibrinogen 278, D-Dimer Quant (PE/DVT) 5.19 H* 01/04/22 16:00: Magnesium 1.7, Lactate Dehydrogenase 206, C-React Prot Ext Range 46.80 H 01/04/22 16:00: B-Natriuretic Peptide 399.9 H 01/04/22 16:00: Procalcitonin 5.34 H 01/04/22 16:00: Lactic Acid 5.5 H* 01/05/22 04:20: WBC 13.0 H, RBC 3.76 L, Hgb 12.0 L, Hct 37.2 L, MCV 98.9 H, MCH 31.9, MCHC 32.3, RDW Std Deviation 49.2 H, RDW Coeff of Delisa 13.3, Plt Count 142 L, MPV 10.1, Immature Gran % (Auto) BUSINESS SYSTEMS ADVISOR, Neut % (Auto) BUSINESS SYSTEMS ADVISOR, Lymph % (Auto) BUSINESS SYSTEMS ADVISOR, [place] % (Auto) BUSINESS SYSTEMS ADVISOR, Eos % (Auto) BUSINESS SYSTEMS ADVISOR, Baso % (Auto) BUSINESS SYSTEMS ADVISOR, Absolute Neuts (auto) 12.2 H, Absolute Lymphs (auto) 0.52 L, Total Counted 100, Neutrophils % (Manual) 42 L, Band Neutrophils % 24 H, Lymphocytes % (Manual) 4 L, Monocytes % (Manual) 2, Metamyelocytes % 27 H, Myelocytes % 1 H, Nucleated RBC % 0, Diff Path Review December, Platelet Estimate SLT DEC, RBC Morphology NORM C+C 01/05/22 04:20: Sodium 143, Potassium 4.3, Chloride 115 H, Carbon Dioxide 18.0 L, Anion Gap 10, BUN 27 H, Creatinine 2.08 H, Estim Creat Clear Calc 29.25, Est GFR (MDRD) Af Amer 40 L, Est GFR (MDRD) Non-Af 33 L, BUN/Creatinine Ratio 13.0, Glucose 260 H, Calcium 7.8 L, Total Bilirubin 0.70, AST 101 H, ALT 26, Alkaline Phosphatase 33 L, Total Protein 5.7 L, Albumin 2.7 L, Globulin 3.0, Albumin/Globulin Ratio 0.9 Micro: Microbiology 01/04/22 15:42 Mucosa - Nasopharyngeal Respiratory Panel (PCR) - Final 01/04/22 16:25 Urine Catheter - Thompson Legionella Antigen - Final 01/04/22 16:25 Urine Catheter - Thompson Streptococcus pneumoniae Antigen (M - Final 01/04/22 12:44 Nasal Secretion SARS-CoV-2 & FLU Antigen (Rapid) - Final SARS-CoV-2 (COVID 19) ABG Data ABG results: ABG 01/04/22 13:17 Specimen Type ART Sample Site R Brach pH 7.40 Bicarbonate Actual 15.9 L Total CO2 17 Base Excess -9 L O2 Saturation 96 O2 % 100 ABG pCO2 26.0 L ABG pO2 82 O2 Delivery Device NRB Radiology Impression Chest X-Ray 01/04/22 13:00 IMPRESSION: Right lower lobe pneumonia and/or atelectasis. Electronically Signed: Jesus Loomis at 13:56 EDT , Chest X-Ray 01/04/22 14:57 IMPRESSION: New right IJ catheter Electronically Signed: Markus Dangelo MD at 15:51 EDT ,
[2022-01-05 11:53] LABS: Alkaline Phosphatase 35 U/L (45-117)
[2022-01-05] MEDS: Insulin Lispro 100 UNIT/ML INSULN.PEN SC ×2 (12:12→17:06)
[2022-01-05 12:47] LABS: Pathologist Review Reviewed
[2022-01-05] MEDS: TITRATION PARAMETER CHANGE 1 EACH IV (12:52)
--- NOTE | 2022-01-05 13:30 | CASEMGMT ---
RN NATE called patient in room for initial transition planning/care coordination assessment. DAVID SULLIVAN introduced self and role at [facility]. Patient alert and oriented. Patient willing to participate in assessment and is able to answer all questions appropriately. Care providers, pharmacy, and demographics verified. Patient wishes to discharge home will monitor progress with therapy for possible HHC at discharge. Patient states he has no further needs or concerns at this time. CM to follow for discharge planning needs that may arise. PCP: [facility] Specialists: Patient follow with neurologist for parkinson; HERMILO Atkins Preferred Pharmacy: [facility] Insurance: [employer] Prescription Benefit: yes Living Will/HPOA: yes, son Colton Marshall HPOA LNOK: , son Living Arrangements: Patient lives with in a single story home with 3 steps and railing to enter the home. Patient states he is independent at home. Transportation: , son DME/HHC: Patient states he has shower chair, raised toielt, cane, walker, grab bars, cpap that he does not wear, and pulse ox at home. Patient has had [facility] HHC in the past. Patient has previously been to TCU. Patient states he prefers [facility] for DME. Disposition Plan: Patient to discharge home with family support and follow-up plans in place. Will monitor for home oxygen and HHC at discharge. Sepideh BOYER, RN, CM
[2022-01-05 13:31] LABS: Bedside Glucose 167 mg/dL (74-106)
--- NOTE | 2022-01-05 14:55 | CHAPLAIN ---
Type of Pastoral Visit ___ Initial Visit ___ Follow-up Visit ___ On-call Visit ___ General Patient Visit ___ Spiritual Assessment ___ Family Conference ___ Bereavement ___ Rapid Response ___ Code Blue _x__ Other (describe below) Pastoral Care Referral From _x__ Patient ___ Family ___ Nurse ___ Physician ___ Mainframe Consultant ___ Director Of Managed Services ___ Other (describe below) Sacrament/Intervention _x__ Active listening ___ Anointing ___ Bahai ___ Bereavement ___ Communion ___ Tiffany exploration ___ ___ Life review ___ Prayer ___ Reconciliation ___ Sacrament of Sick ___ Supportive presence ___ Wedding ___ Other (describe below) Pastoral Comments phone call made into isolation room; pt is able to answer phone and talk; pt states that he is doing ok for the situation, that he is in contact with family, and that he has no other needs at this time; pt stated he appreciated the call
[2022-01-05 17:15] LABS: Bedside Glucose 207 mg/dL (74-106)
[2022-01-05] MEDS: 0.9% Saline Lock 10 ML Syringe IV (22:12)
[2022-01-05] MEDS: Atorvastatin Calcium 20 MG Tablet PO (22:13)
[2022-01-05] MEDS: Tamsulosin HCl 0.4 MG Capsule 0.8 MG PO (22:13)
[2022-01-06] VITALS (21 sets, daily range): BP systolic 110–153; BP diastolic 67–95; PULSE 70–87; RESP 16–23; TEMP 36.6–37; O2SAT 93–100
[2022-01-06] MEDS: Hydrocortisone Sod Succinate 100 MG/2 ML Vial IV ×4 (01:01→22:18)
[2022-01-06] MEDS: 0.9% Saline Lock 10 ML Syringe IV ×3 (01:02→22:19)
[2022-01-06 01:11] LABS: Bedside Glucose 137 mg/dL (74-106)
[2022-01-06 04:56] LABS: Differential Indicated MANUAL DIFF; Hematocrit 32.2 % (40-54); Hemoglobin 10.5 g/dL (13.0-16.5); Mean Corp Hgb Conc 32.6 g/dL (32-36); Mean Corpuscular Hgb 32.3 pg (27.0-32.0); Mean Corpuscular Volume 99.1 fL (80-94); POSITIVE COUNT YES; POSITIVE DIFFERENTIAL YES; POSITIVE MORPHOLOGY YES; Platelet Count 119 K/mm3 (150-450); RBC Distribution Width CV 13.6 % (11.6-14.6); RBC Distribution Width SD 48.8 fl (35.1-43.9); Red Blood Count 3.25 M/mm3 (4.6-6.2); White Blood Count 12.7 K/mm3 (4.4-11.0)
[2022-01-06 05:00] LABS: ALB/GLOB Ratio 0.8 RATIO (0.9-2.4); AST(SGOT) 118 U/L (15-37); Alanine Aminotransfer ALT/SGPT 15 U/L (16-61); Albumin, Serum 2.6 g/dL (3.2-5.0); Alkaline Phosphatase 30 U/L (45-117); Anion Gap 6 (5-15); BUN 26 mg/dL (7-18); Calcium,Total 7.8 mg/dL (8.5-10.1); Chloride 115 mmol/L (98-107); Creatinine, Serum 1.73 mg/dL (0.70-1.30); EST Glomerular Filtration Rate 41 mL/min (>60); Est Glom Filt Rate - Afr Amer 49 mL/min (>60); Estimated Creatinine Clearance 35.16 ml/min; Globulin 3.1 g/dL (2.2-4.2); Glucose 148 mg/dL (74-106); Protein, Total 5.7 g/dL (6.4-8.2); Sodium Level 143 mmol/L (136-145)
[2022-01-06] MEDS: Carbidopa/Levodopa 25/100 Tablet PO ×3 (05:26→22:09)
[2022-01-06] MEDS: Levothyroxine 112 MCG Tablet PO (05:26)
[2022-01-06 05:34] LABS: Neutrophil-Band 30 % (0-5); Neutrophil-Segmented 52 % (47-70); Total Cells Counted 100 (MANUAL DIFF)
[2022-01-06 05:35] LABS: Lymphocyte 2 % (19-41); Metamyelocyte 10 % (0-1); Monocyte 4 % (0-10); Myelocyte 2 % (0-0); Platelet Estimate SLT DEC (ADEQ); Red Cell Morphology NORM C+C NORMAL (NORM C&C)
[2022-01-06 05:36] LABS: Absolute Neutrophil Count 10.4 X10^3/uL (2.0-7.7)
[2022-01-06 05:37] LABS: Absolute Lymphocyte Count 0.25 X10^3/uL (0.83-4.51); Lymphocyte # 0.25 X10^3/ul (0.83-4.51)
--- NOTE | 2022-01-06 06:21 | PCM.PN.INT ---
Assessment & Plan Assessment/Plan (1) Pneumonia due to 2019 novel coronavirus: (2) Septic shock: (3) GERTRUDE (acute kidney injury): (4) Parkinson disease: (5) Adrenal insufficiency: PLAN: RECOMMENDATIONS: 1. Continue empiric Zosyn pending cultures. Defer to ID 2. Wean stress dose steroids 3. Out of bed as tolerated 4. Delirium protocol 5. Okay to leave the intensive care unit IMPRESSIONS: 1. Acute hypoxic respiratory failure secondary to COVID-19 pneumonia with possible superinfection Patient's x-rays not typical of COVID-19 at this time. Patient did receive significant amounts of IV fluids in the ER. Would not recommend continuing fluid boluses as this does increase his risk for hypoxic respiratory failure. Patient appears to be tolerating room air at this time. Patient does have a significant bandemia with a predominant right lower lobe infiltrate. Agree with empiric antibiotics. COVID-19 is positive and patient is unvaccinated. Continue infectious disease recommendations. 2. Septic shock versus adrenal insufficiency/acute kidney injury Resolved. Clinical course is more suggestive of adrenal crisis. Cultures are pending. Patient with less than optimal response by cortisol on presentation. However, patient also has a significant bandemia noted and a right lower lobe infiltrate. Patient should not be receiving additional IV fluids as this can increase his risk of worsening hypoxic respiratory failure. Patient is no longer requiring pressors and tolerating well.Clinical suspicion for prerenal etiology. Continue to support blood pressure. No indication for renal replacement therapy at this time. 3. Parkinson's/secondary adrenal insufficiency/post pituitary macroadenoma resection/delirium Patient should be continued on his parkinsonian meds. Hydrocortisone has been increased given problems 1 and 2. Patient can also be continued on his baseline endocrine medications. Anticipate decreasing hydrocortisone by 1 dose per day until every 12 hours, then transitioning to baseline p.o. hydrocortisone dosing. 4. Advanced age/hypertension/CAD status post stents/BPH Complicates care, management, recovery and prognosis. Antihypertensive should be held given problem #2. Thompson catheter has been removed and patient is urinating well. Hospitalist did address CODE STATUS, but the order was not placed. Order placed per hospitalist documentation. I did not discuss this with the . Subjective Subjective Patient did well overnight from a hemodynamic standpoint. Patient was able to come off of Levophed at approximately 430 yesterday afternoon. Patient has been tolerating room air. Patient did have significant confusion overnight with some visual hallucinations, but appears to be more appropriate this morning. Patient is able to give me his name, date of and that he is at [facility]. Patient was unaware of how long he has been here. Patient is reporting some mild shortness of breath at rest, but feels this is better. Objective Data Objective Data Vital Signs: Vital Signs Temp Pulse Resp BP Pulse Ox 36.6 C 73 22 H 130/84 H 96 01/06/22 04:00 01/06/22 06:00 01/06/22 06:00 01/06/22 06:00 01/06/22 06:00 Oxygen Flow Rate (L/min) 2 Oxygen Delivery Method Room Air Weight: 97.5 kg Body Mass Index (BMI) 30.7 Intake & Output: Intake and Output for Last 24 Hours 01/04/22 01/05/22 01/06/22 23:59 23:59 23:59 Intake Total 3850.73 / 3869.48 2640.15 / 2640.15 50 / 50 Output Total 600 / 925 2500 / 2500 Balance 3250.73 / 2944.48 140.15 / 140.15 50 / 50 Lab / Micro Data Result Diagrams: 01/06/22 04:30 01/06/22 04:30 Labs: Laboratory Results - last 24 hr 01/05/22 04:20: Diff Path Review Reviewed 01/05/22 04:20: Alkaline Phosphatase 35 L 01/05/22 12:07: POC Glucose 167 H 01/05/22 17:01: POC Glucose 207 H 01/05/22 22:20: POC Glucose 137 H 01/06/22 04:30: WBC 12.7 H, RBC 3.25 L, Hgb 10.5 L, Hct 32.2 L, MCV 99.1 H, MCH 32.3 H, MCHC 32.6, RDW Std Deviation 48.8 H, RDW Coeff of Delisa 13.6, Plt Count 119 L, MPV 10.0, Neut % (Auto) Not Reportable, Absolute Neuts (auto) 10.4 H, Absolute Lymphs (auto) 0.25 L, Total Counted 100, Neutrophils % (Manual) 52, Band Neutrophils % 30 H, Lymphocytes % (Manual) 2 L, Monocytes % (Manual) 4, Metamyelocytes % 10 H, Myelocytes % 2 H, Diff Path Review May foll, Platelet Estimate SLT DEC, RBC Morphology NORM C+C 01/06/22 04:30: Sodium 143, Potassium 4.0, Chloride 115 H, Carbon Dioxide 22.0, Anion Gap 6, BUN 26 H, Creatinine 1.73 H, Estim Creat Clear Calc 35.16, Est GFR (MDRD) Af Amer 49 L, Est GFR (MDRD) Non-Af 41 L, BUN/Creatinine Ratio 15.0, Glucose 148 H, Calcium 7.8 L, Total Bilirubin 0.70, AST 118 H, ALT 15 L, Alkaline Phosphatase 30 L, Total Protein 5.7 L, Albumin 2.6 L, Globulin 3.1, Albumin/Globulin Ratio 0.8 L Micro: Microbiology 01/05/22 08:30 Stool C. difficile DNA Amplification - Final 01/04/22 12:52 Urine Catheter - Catheter Urine Culture - Preliminary Culture exhibits no growth. 01/04/22 15:42 Mucosa - Nasopharyngeal Respiratory Panel (PCR) - Final 01/04/22 16:25 Urine Catheter - Thompson Legionella Antigen - Final 01/04/22 16:25 Urine Catheter - Thompson Streptococcus pneumoniae Antigen (M - Final 01/04/22 12:44 Nasal Secretion SARS-CoV-2 & FLU Antigen (Rapid) - Final SARS-CoV-2 (COVID 19) Physical Exam Const alert and no apparent distress General Appearance: frail Orientation / Consciousness: awake, oriented to person and oriented to place HEENT normocephalic, head/scalp atraumatic and moist oral mucous membranes HEENT Narrative: Right IJ clean, dry and intact Eyes PERRL and EOMs intact bilaterally Neck full ROM General: CVC in place Chest inspection of chest normal Chest: symmetrical chest wall rise; Negative for crepitus Resp Auscultation: diminished lung sounds; Negative for rales, rhonchi or wheezes Cardio regular rate, regular rhythm, S1 normal heart sound, S2 normal heart sound, no murmurs, no rub and no gallops GI normal to inspection, nondistended, normoactive bowel sounds no CVA tenderness Extremity General Extremity: edema bilateral (1+) lower extremity Skin Skin Narrative: Dermal atrophy noted Neuro oriented x3 Neuro Narrative: Cogwheel movements. Psych cooperative Mood & Affect: flat affect Charges/Coding Visit Charges Inpatient E&M: 02681 Subs Hosp L3
[2022-01-06 07:51] LABS: Bedside Glucose 136 mg/dL (74-106)
[2022-01-06] MEDS: Enoxaparin 100 MG/ML Syringe 90 MG SC (07:53)
[2022-01-06] MEDS: Aspirin E.C. 81 MG Tablet PO (07:53)
[2022-01-06] MEDS: CHLORHEXIDINE GLUC 2% CLOTH 1 EACH TOWELETTE TOPICAL (07:54)
[2022-01-06] MEDS: Tolterodine Tartrate 4 MG CAP.SA PO (07:54)
[2022-01-06] MEDS: Menthol/Lanolin/Calamine/Znox 113 GM Tube 1 APPLIC TOPICAL ×2 (07:54→22:08)
--- NOTE | 2022-01-06 07:57 | PN.HOSP_ITS ---
Subjective Subjective Follow-up on acute hypoxic respiratory failure/septic shock/acute COVID-19 patient/community-acquired pneumonia: Patient was seen and examined. He remains off oxygen, has been of Levophed since last night. No acute events. Denied any fever or chills or difficulty breathing. Objective Data Objective Data Vital Signs: Vital Signs Temp Pulse Resp BP Pulse Ox 98 F 77 20 H 140/83 H 97 01/06/22 04:00 01/06/22 07:00 01/06/22 07:00 01/06/22 07:00 01/06/22 07:00 Oxygen Flow Rate (L/min) 2 Oxygen Delivery Method Room Air Weight: 97.5 kg Body Mass Index (BMI) 30.7 Intake & Output: Intake and Output for Last 24 Hours 01/04/22 01/05/22 01/06/22 23:59 23:59 23:59 Intake Total 3850.73 / 3869.48 2640.15 / 2640.15 50 / 50 Output Total 600 / 925 2500 / 2500 Balance 3250.73 / 2944.48 140.15 / 140.15 50 / 50 Lab / Micro Data Result Diagrams: 01/06/22 04:30 01/06/22 04:30 Labs: Laboratory Results - last 24 hr 01/05/22 04:20: Diff Path Review Reviewed 01/05/22 04:20: Alkaline Phosphatase 35 L 01/05/22 12:07: POC Glucose 167 H 01/05/22 17:01: POC Glucose 207 H 01/05/22 22:20: POC Glucose 137 H 01/06/22 04:30: WBC 12.7 H, RBC 3.25 L, Hgb 10.5 L, Hct 32.2 L, MCV 99.1 H, MCH 32.3 H, MCHC 32.6, RDW Std Deviation 48.8 H, RDW Coeff of Delisa 13.6, Plt Count 119 L, MPV 10.0, Neut % (Auto) Not Reportable, Absolute Neuts (auto) 10.4 H, Absolute Lymphs (auto) 0.25 L, Total Counted 100, Neutrophils % (Manual) 52, Band Neutrophils % 30 H, Lymphocytes % (Manual) 2 L, Monocytes % (Manual) 4, Metamyelocytes % 10 H, Myelocytes % 2 H, Diff Path Review May foll, Platelet Estimate SLT DEC, RBC Morphology NORM C+C 01/06/22 04:30: Sodium 143, Potassium 4.0, Chloride 115 H, Carbon Dioxide 22.0, Anion Gap 6, BUN 26 H, Creatinine 1.73 H, Estim Creat Clear Calc 35.16, Est GFR (MDRD) Af Amer 49 L, Est GFR (MDRD) Non-Af 41 L, BUN/Creatinine Ratio 15.0, Glucose 148 H, Calcium 7.8 L, Total Bilirubin 0.70, AST 118 H, ALT 15 L, Alkali ne Phosphatase 30 L, Total Protein 5.7 L, Albumin 2.6 L, Globulin 3.1, Albumin/Globulin Ratio 0.8 L 01/06/22 05:26: POC Glucose 136 H Micro: Microbiology 01/04/22 12:41 Blood Culture (Wb) - Anticubital Left Blood Culture - Preliminary No growth in 48 hours. 01/04/22 12:20 Blood Culture (Wb) - Right Forearm Blood Culture - Preliminary No growth in 48 hours. 01/05/22 08:30 Stool C. difficile DNA Amplification - Final 01/04/22 12:52 Urine Catheter - Catheter Urine Culture - Preliminary Culture exhibits no growth. 01/04/22 15:42 Mucosa - Nasopharyngeal Respiratory Panel (PCR) - Final 01/04/22 16:25 Urine Catheter - Thompson Legionella Antigen - Final 01/04/22 16:25 Urine Catheter - Thompson Streptococcus pneumoniae Antigen (M - Final 01/04/22 12:44 Nasal Secretion SARS-CoV-2 & FLU Antigen (Rapid) - Final SARS-CoV-2 (COVID 19) Physical Exam Narrative Physical exam: General: Alert, oriented x3, cooperative, no apparent distress, appears very frail, obese HEENT: Atraumatic Oral: Moist Mucosa Neck: Supple Lungs: Diminished to auscultation Cardiovascular: HS I+II, regular, no murmurs Abdomen: Bowel Sounds Present, Soft, Non Tender Extremities: Bilateral leg edema+1 Skin: No rashes, No breakdown Neurological: Grossly intact Psych/Mental Status: Appropriate Assessment & Plan Assessment/Plan (1) Septic shock: (2) Pneumonia due to 2019 novel coronavirus: (3) Lactic acidosis: (4) GERTRUDE (acute kidney injury): (5) Hypokalemia: PLAN: 1. Acute hypoxic respiratory failure secondary to acute COVID-19 pneumonia, resolved Currently off oxygen Continue to encourage use of incentive spirometer Will transfer out of ICU 2. Septic shock secondary to Acute COVID-19 pneumonia/probable pneumonia, r esolved Off pressors Patient is severely immunocompromised, status post pituitary macroadenoma remov al, on chronic steroids Patient had evidence of organ dysfunction with lactic acidosis, GERTRUDE, respiratory failure Status post fluid boluses, on pressors Continue on IV hydrocortisone 100 mg every 8h; will switch to home oral dose tomorrow Infectious disease and pulmonology following 3. Acute COVID-19 pneumonia with hypoxia, community-acquired pneumonia He is unvaccinated against COVID-19 Chest x-ray showed right-sided infiltrates. Gram-positive and negative organisms suspected Procalcitonin elevated at 5.34, CRP is 46.80 Respiratory panel, urine for Legionella and streptococcal antigen are negative Sputum cultures pending Continue on IV Zosyn, Remdesivir Labs in am 4. Elevated D-dimer, unable to do CTA of the chest to rule out acute PE Continue to treat with therapeutic Lovenox 5. Lactic acidosis secondary to #1, will trend 6. Hypertension,hypotension is resolved, will continue to monitor Will have a low threshold to resume home losartan 7. CAD status post stents, continue on aspirin, statin 8. Parkinson's disease, continue on Sinemet 9. BPH/urine incontinence, continue on tamsulosin and tolterodine 10. DVT prophylaxis with Lovenox subcu 11.GI PPx- famotidine IV Charges/Coding Visit Charges Inpatient E&M: 71979 Subs Hosp L2
--- NOTE | 2022-01-06 09:59 | PCM.PN.ID ---
Physical Exam Narrative BP and O2 dramatically improved. No fever. Const no apparent distress Resp normal air movement and clear to auscultation bilaterally Cardio regular rate and regular rhythm GI soft to palpation, non-tender and non-distended Skin no rashes or lesions noted ID ID: Route of nutrition/ use of supplements: [] Nutritional Intake: [] IV Site: [] [place] Catheter: [] Assessment & Plan Assessment/Plan (1) Septic shock: PLAN: Sx started 01/01. Unvaccinated. On iv steroids. Cont remdesivir for 5 days total. Cont zosyn for empiric bacterial coverage for now. D-dimer was high, on therapeutic lovenox. Recommended vaccination in next 1-2 months. Will follow, d/w primary team (2) Pneumonia due to 2019 novel coronavirus: (3) GERTRUDE (acute kidney injury):
[2022-01-06] MEDS: Famotidine 200 MG/20 ML MDV 20 MG in 0.9% Normal Saline (Pres. free 8 ML 300 MG IV (10:30)
[2022-01-06 14:02] LABS: Pathologist Review Reviewed
[2022-01-06 15:35] LABS: Bedside Glucose 133 mg/dL (74-106)
[2022-01-06 17:26] LABS: Bedside Glucose 165 mg/dL (74-106)
[2022-01-06] MEDS: Atorvastatin Calcium 20 MG Tablet PO (22:08)
[2022-01-06] MEDS: Tamsulosin HCl 0.4 MG Capsule 0.8 MG PO (22:10)
[2022-01-06 22:35] LABS: Bedside Glucose 132 mg/dL (74-106)
[2022-01-07] VITALS (8 sets, daily range): BP systolic 130–159; BP diastolic 73–99; PULSE 60–74; RESP 17–18; TEMP 36.5–37.1; O2SAT 97–99
[2022-01-07] MEDS: Levothyroxine 112 MCG Tablet PO (06:07)
[2022-01-07] MEDS: Carbidopa/Levodopa 25/100 Tablet PO ×3 (06:07→22:29)
[2022-01-07] MEDS: Hydrocortisone Sod Succinate 100 MG/2 ML Vial IV ×2 (06:08→22:29)
[2022-01-07] MEDS: 0.9% Saline Lock 10 ML Syringe IV ×3 (06:11→22:35)
[2022-01-07] MEDS: Insulin Lispro 100 UNIT/ML INSULN.PEN SC ×2 (06:18→16:52)
[2022-01-07 06:25] LABS: Bedside Glucose 158 mg/dL (74-106)
--- NOTE | 2022-01-07 07:02 | PCM.PN.HOSP ---
Subjective Subjective Follow-up on acute hypoxic respiratory failure/septic shock/acute COVID-19 patient/community-acquired pneumonia: Patient was seen and examined. No acute events overnight. He complains of generalized weakness. He is a two-person assist for medicine. Objective Data Objective Data Vital Signs: Vital Signs Temp Pulse Resp BP Pulse Ox 98.6 F 71 18 140/73 H 99 01/07/22 04:00 01/07/22 04:00 01/07/22 04:00 01/07/22 04:00 01/07/22 04:00 Oxygen Flow Rate (L/min) 2 Oxygen Delivery Method Room Air Weight: 97.5 kg Body Mass Index (BMI) 30.7 Intake & Output: Intake and Output for Last 24 Hours 01/05/22 01/06/22 01/07/22 23:59 23:59 23:59 Intake Total 2640.15 / 2640.15 1060 / 1060 150 / 150 Output Total 2500 / 2500 350 / 350 450 / 450 Balance 140.15 / 140.15 710 / 710 -300 / -300 Lab / Micro Data Result Diagrams: 01/07/22 06:58 01/07/22 06:58 Labs: Laboratory Results - last 24 hr 01/06/22 04:30: Diff Path Review Reviewed 01/06/22 05:26: POC Glucose 136 H 01/06/22 11:59: POC Glucose 133 H 01/06/22 17:18: POC Glucose 165 H 01/06/22 22:06: POC Glucose 132 H 01/07/22 06:04: POC Glucose 158 H Micro: Microbiology 01/04/22 12:52 Urine Catheter - Catheter Urine Culture - Final Culture exhibits no growth. 01/04/22 12:41 Blood Culture (Wb) - Anticubital Left Blood Culture - Preliminary No growth in 48 hours. 01/04/22 12:20 Blood Culture (Wb) - Right Forearm Blood Culture - Preliminary No growth in 48 hours. 01/05/22 08:30 Stool C. difficile DNA Amplification - Final 01/04/22 15:42 Mucosa - Nasopharyngeal Respiratory Panel (PCR) - Final 01/04/22 16:25 Urine Catheter - Thompson Legionella Antigen - Final 01/04/22 16:25 Urine Catheter - Thompson Streptococcus pneumoniae Antigen (M - Final 01/04/22 12:44 Nasal Secretion SARS-CoV-2 & FLU Antigen (Rapid) - Final SARS-CoV-2 (COVID 19) Physical Exam Narrative Physical exam: General: Alert, oriented x3, cooperative, no apparent distress, appears very frail, obese HEENT: Atraumatic Oral: Moist Mucosa Neck: Supple Lungs: Diminished to auscultation Cardiovascular: HS I+II, regular, no murmurs Abdomen: Bowel Sounds Present, Soft, Non Tender Extremities: Bilateral leg edema+1 Skin: No rashes, No breakdown Neurological: Grossly intact Psych/Mental Status: Appropriate Assessment & Plan Assessment/Plan (1) Septic shock: (2) Pneumonia due to 2019 novel coronavirus: (3) Lactic acidosis: (4) GERTRUDE (acute kidney injury): (5) Hypokalemia: PLAN: 1. Acute hypoxic respiratory failure secondary to acute COVID-19 pneumonia, resolved Continue to encourage use of incentive spirometer 2. Septic shock secondary to Acute COVID-19 pneumonia/probable pneumonia, resolved Patient is severely immunocompromised, status post pituitary macroadenoma removal, on chronic steroids Patient had evidence of organ dysfunction with lactic acidosis, GERTRUDE, respiratory failure Status post fluid boluses, on pressors Continue on IV hydrocortisone 100 mg every 12h Infectious disease and pulmonology following 3. Acute COVID-19 pneumonia with hypoxia, community-acquired pneumonia He is unvaccinated against COVID-19 Chest x-ray showed right-sided infiltrates. Gram-positive and negative organisms suspected Procalcitonin elevated at 5.34, CRP is 46.80 Respiratory panel, urine for Legionella and streptococcal antigen are negative Continue on IV Zosyn, Remdesivir Labs in am 4. Elevated D-dimer, unable to do CTA of the chest to rule out acute PE Continue to treat with therapeutic Lovenox 5. Lactic acidosis secondary to #1, will trend 6. Hypertension,hypotension is resolved, will continue to monitor Will have a low threshold to resume home losartan 7. CAD status post stents, continue on aspirin, statin 8. Parkinson's disease, continue on Sinemet 9. BPH/urine incontinence, continue on tamsulosin and tolterodine 10. DVT prophylaxis with Lovenox subcu Charges/Coding Visit Charges Inpatient E&M: 60460 Subs Hosp L2
[2022-01-07 07:12] LABS: Hematocrit 32.4 % (40-54); Hemoglobin 10.7 g/dL (13.0-16.5); Mean Corpuscular Hgb 32.6 pg (27.0-32.0); Mean Corpuscular Volume 98.8 fL (80-94); Mean Platelet Vol. 10.2 fl (6.2-12.0); Platelet Count 134 K/mm3 (150-450); RBC Distribution Width CV 13.4 % (11.6-14.6); RBC Distribution Width SD 48.8 fl (35.1-43.9); Red Blood Count 3.28 M/mm3 (4.6-6.2); White Blood Count 12.6 K/mm3 (4.4-11.0)
[2022-01-07 07:40] LABS: ALB/GLOB Ratio 0.8 RATIO (0.9-2.4); AST(SGOT) 89 U/L (15-37); Alanine Aminotransfer ALT/SGPT 13 U/L (16-61); Albumin, Serum 2.5 g/dL (3.2-5.0); Alkaline Phosphatase 31 U/L (45-117); Anion Gap 11 (5-15); BUN 31 mg/dL (7-18); Calcium,Total 8.2 mg/dL (8.5-10.1); Chloride 113 mmol/L (98-107); Creatinine, Serum 1.55 mg/dL (0.70-1.30); EST Glomerular Filtration Rate 46 mL/min (>60); Est Glom Filt Rate - Afr Amer 56 mL/min (>60); Estimated Creatinine Clearance 39.25 ml/min; Globulin 3.3 g/dL (2.2-4.2); Glucose 152 mg/dL (74-106); Potassium 3.7 mmol/L (3.5-5.1); Protein, Total 5.8 g/dL (6.4-8.2); Sodium Level 144 mmol/L (136-145)
--- NOTE | 2022-01-07 09:33 | PN.CC_ITS ---
Assessment & Plan Assessment/Plan (1) Pneumonia due to 2019 novel coronavirus: (2) Septic shock: (3) GERTRUDE (acute kidney injury): (4) Parkinson disease: (5) Adrenal insufficiency: PLAN: RECOMMENDATIONS: 1. Consider discontinuation of Remdesivir. Defer to ID 2. Wean stress dose steroids. Likely okay to transition to baseline p.o. hydrocortisone tomorrow 3. Walking oximetry prior to discharge 4. Delirium protocol 5. Hemodynamically stable on room air. Likely okay to not follow-up as an outpatient. We will sign off. IMPRESSIONS: 1. Acute hypoxic respiratory failure secondary to COVID-19 pneumonia with possible superinfection Patient's x-rays not typical of COVID-19 at this time. Patient did receive significant amounts of IV fluids in the ER. No further boluses have been required. Patient appears to be tolerating room air at this time. Patient does have a significant bandemia with a predominant right lower lobe infiltrate. Infectious diseases following. COVID-19 is positive and patient is unvaccinated. Continue infectious disease recommendations. 2. Septic shock versus adrenal insufficiency/acute kidney injury Resolved. Clinical course is more suggestive of adrenal crisis. Cultures are pending. Patient with less than optimal response by cortisol on presentation. However, patient also has a significant bandemia noted and a right lower lobe infiltrate. Patient should not be receiving additional IV fluids as this can increase his risk of worsening hypoxic respiratory failure. Patient is no longer requiring pressors and tolerating well.Clinical suspicion f or prerenal etiology. Continue to support blood pressure. No indication for renal replacement therapy at this time. We will transition to every 12 hours today. Likely okay to transition to baseline p.o. hydrocortisone tomorrow 3. Parkinson's/secondary adrenal insufficiency/post pituitary macroadenoma resection/delirium Patient should be continued on his parkinsonian meds. Hydrocortisone has been increased given problems 1 and 2. Patient can also be continued on his baseline endocrine medications. 4. Advanced age/hypertension/CAD status post stents/BPH Complicates care, management, recovery and prognosis. Antihypertensive should be held given problem #2. Thompson catheter has been removed and patient is urinating well. Subjective Subjective Patient transferred out of the intensive care unit yesterday. No acute issues were reported overnight. Patient remains hemodynamically stable on room air. Patient with no complaints at this time Objective Data Objective Data Vital Signs: Vital Signs Temp Pulse Resp BP Pulse Ox 37.0 C 66 18 140/73 H 99 01/07/22 04:00 01/07/22 07:00 01/07/22 04:00 01/07/22 04:00 01/07/22 04:00 Oxygen Flow Rate (L/min) 2 Oxygen Delivery Method Room Air Weight: 97.5 kg Body Mass Index (BMI) 30.7 Intake & Output: Intake and Output for Last 24 Hours 01/05/22 01/06/22 01/07/22 23:59 23:59 23:59 Intake Total 2640.15 / 2640.15 1060 / 1060 150 / 150 Output Total 2500 / 2500 350 / 350 450 / 450 Balance 140.15 / 140.15 710 / 710 -300 / -300 Lab / Micro Data Result Diagrams: 01/07/22 06:58 01/07/22 06:58 Labs: Laboratory Results - last 24 hr 01/06/22 04:30: Diff Path Review Reviewed 01/06/22 11:59: POC Glucose 133 H 01/06/22 17:18: POC Glucose 165 H 01/06/22 22:06: POC Glucose 132 H 01/07/22 06:04: POC Glucose 158 H 01/07/22 06:58: WBC 12.6 H, RBC 3.28 L, Hgb 10.7 L, Hct 32.4 L, MCV 98.8 H, MCH 32.6 H, MCHC 33.0, RDW Std Deviation 48.8 H, RDW Coeff of Delisa 13.4, Plt Count 134 L, MPV 10.2 01/07/22 06:58: Sodium 144, Potassium 3.7, Chloride 113 H, Carbon Dioxide 20.0 L , Anion Gap 11, BUN 31 H, Creatinine 1.55 H, Estim Creat Clear Calc 39.25, Est GFR (MDRD) Af Amer 56 L, Est GFR (MDRD) Non-Af 46 L, BUN/Creatinine Ratio 20.0, Glucose 152 H, Calcium 8.2 L, Total Bilirubin 0.50, AST 89 H, ALT 13 L, Alkaline Phosphatase 31 L, Total Protein 5.8 L, Albumin 2.5 L, Globulin 3.3, Albumin/Globulin Ratio 0.8 L Micro: Microbiology 01/04/22 12:52 Urine Catheter - Catheter Urine Culture - Final Culture exhibits no growth. 01/04/22 12:41 Blood Culture (Wb) - Anticubital Left Blood Culture - Preliminary No growth in 48 hours. 01/04/22 12:20 Blood Culture (Wb) - Right Forearm Blood Culture - Preliminary No growth in 48 hours. 01/05/22 08:30 Stool C. difficile DNA Amplification - Final 01/04/22 15:42 Mucosa - Nasopharyngeal Respiratory Panel (PCR) - Final 01/04/22 16:25 Urine Catheter - Thompson Legionella Antigen - Final 01/04/22 16:25 Urine Catheter - Thompson Streptococcus pneumoniae Antigen (M - Final 01/04/22 12:44 Nasal Secretion SARS-CoV-2 & FLU Antigen (Rapid) - Final SARS-CoV-2 (COVID 19) Physical Exam Const alert and no apparent distress General Appearance: frail Orientation / Consciousness: awake, oriented to person and oriented to place HEENT normocephalic, head/scalp atraumatic and moist oral mucous membranes HEENT Narrative: Right IJ clean, dry and intact Eyes PERRL and EOMs intact bilaterally Neck full ROM General: CVC in place Chest inspection of chest normal Chest: symmetrical chest wall rise; Negative for crepitus Resp Auscultation: diminished lung sounds; Negative for rales, rhonchi or wheezes Cardio regular rate, regular rhythm, S1 normal heart sound, S2 normal heart sound, no m urmurs, no rub and no gallops GI normal to inspection, nondistended, normoactive bowel sounds no CVA tenderness Extremity General Extremity: edema bilateral (1+) lower extremity Skin Skin Narrative: Dermal atrophy noted Neuro oriented x3 Neuro Narrative: Cogwheel movements. Psych cooperative Mood & Affect: flat affect Charges/Coding Visit Charges Inpatient E&M: 25616 Subs Hosp L2
[2022-01-07] MEDS: Aspirin E.C. 81 MG Tablet PO (10:24)
[2022-01-07] MEDS: Tolterodine Tartrate 4 MG CAP.SA PO (10:24)
[2022-01-07] MEDS: Enoxaparin 100 MG/ML Syringe 90 MG SC (10:26)
[2022-01-07] MEDS: Famotidine 200 MG/20 ML MDV 20 MG in 0.9% Normal Saline (Pres. free 8 ML 300 MG IV (10:26)
[2022-01-07] MEDS: Menthol/Lanolin/Calamine/Znox 113 GM Tube 1 APPLIC TOPICAL ×2 (10:27→22:27)
--- NOTE | 2022-01-07 11:11 | PCM.PN.ID ---
Physical Exam Narrative Feeling better, still cough, no fever Const alert and no apparent distress General Appearance: cooperative Resp normal air movement and clear to auscultation bilaterally Cardio regular rate and regular rhythm GI soft to palpation, non-tender and non-distended Skin no rashes or lesions noted ID ID: Route of nutrition/ use of supplements: [] Nutritional Intake: [] IV Site: [] Thompson Catheter: [] Assessment & Plan Assessment/Plan (1) Septic shock: PLAN: Sx started 01/01. Unvaccinated. On iv steroids. Cont remdesivir for 5 days total. Cont zosyn for empiric bacterial coverage for now. D-dimer was high, on therapeutic lovenox. Recommended vaccination in next 1-2 months. If able to be discharged, ok to stop remdesivir early, have him complete abx course with 3 more days augmentin 875mg bid. Will follow, d/w primary team (2) Pneumonia due to 2019 novel coronavirus: (3) GERTRUDE (acute kidney injury):
[2022-01-07 12:45] LABS: Bedside Glucose 169 mg/dL (74-106)
--- NOTE | 2022-01-07 16:15 | CASEMGMT ---
Patient did not do well with therapy and will need to go to a fpc short term for rehab. Patient has COVID so he has very limited options. [facility] is out of network, but they can get a 1 time contract and they are taking COVID patients. CHRISTY called 8 other facilities today and all of them but 1 said no COVID patients for sure. [facility] said their corporate is looking at COVID referrals to decide if they will accept or not. CHRISTY called patient's and explained situation. She was reluctant to go with [facility] due to their 2 star rating. She was open to SW sending a referral to [facility] to see if they will take patient. CHRISTY told her SW will send the referral and then get back with her tomorrow. CHRISTY called [facility] and Alona is gone for the day. CHRISTY faxed the referral and will follow up with [facility] tomorrow. Vianca Martinez CULINARY WORKER [employer]
[2022-01-07 17:06] LABS: Bedside Glucose 174 mg/dL (74-106)
[2022-01-07] MEDS: Tamsulosin HCl 0.4 MG Capsule 0.8 MG PO (22:28)
[2022-01-07] MEDS: Atorvastatin Calcium 20 MG Tablet PO (22:29)
[2022-01-07 22:51] LABS: Bedside Glucose 108 mg/dL (74-106)
[2022-01-08] VITALS (8 sets, daily range): BP systolic 138–157; BP diastolic 69–88; PULSE 55–70; RESP 16–18; TEMP 36.6–36.9; O2SAT 98–99
[2022-01-08 05:55] LABS: Hematocrit 31.4 % (40-54); Hemoglobin 10.5 g/dL (13.0-16.5); Mean Corp Hgb Conc 33.4 g/dL (32-36); Mean Corpuscular Hgb 32.2 pg (27.0-32.0); Mean Corpuscular Volume 96.3 fL (80-94); Mean Platelet Vol. 10.9 fl (6.2-12.0); Platelet Count 116 K/mm3 (150-450); RBC Distribution Width CV 13.2 % (11.6-14.6); RBC Distribution Width SD 47.1 fl (35.1-43.9); Red Blood Count 3.26 M/mm3 (4.6-6.2); White Blood Count 11.9 K/mm3 (4.4-11.0)
[2022-01-08 06:06] LABS: ALB/GLOB Ratio 0.8 RATIO (0.9-2.4); AST(SGOT) 71 U/L (15-37); Alanine Aminotransfer ALT/SGPT 25 U/L (16-61); Albumin, Serum 2.4 g/dL (3.2-5.0); Alkaline Phosphatase 30 U/L (45-117); Anion Gap 7 (5-15); BUN 34 mg/dL (7-18); BUN/Creat Ratio 21.8 RATIO (10-20); Calcium,Total 8.2 mg/dL (8.5-10.1); Chloride 112 mmol/L (98-107); Creatinine, Serum 1.56 mg/dL (0.70-1.30); EST Glomerular Filtration Rate 46 mL/min (>60); Est Glom Filt Rate - Afr Amer 55 mL/min (>60); Globulin 3.2 g/dL (2.2-4.2); Glucose 161 mg/dL (74-106); Potassium 3.7 mmol/L (3.5-5.1); Protein, Total 5.6 g/dL (6.4-8.2); Sodium Level 139 mmol/L (136-145)
[2022-01-08] MEDS: Carbidopa/Levodopa 25/100 Tablet PO ×3 (06:21→22:07)
[2022-01-08] MEDS: Levothyroxine 112 MCG Tablet PO (06:21)
[2022-01-08] MEDS: Insulin Lispro 100 UNIT/ML INSULN.PEN SC (06:25)
[2022-01-08 06:35] LABS: Bedside Glucose 156 mg/dL (74-106)
--- NOTE | 2022-01-08 07:40 | TREXTCAR_ITS ---
Diet 01/06/22 09:49 Diet: Regular - General Type of Dietary Supplement:: Ensure Compact Is pt able to select menu?: No Routine Orders/Code Status Enema Type: Fleetz Enema Frequency: Daily PRN Suppository Type: Dulcolax 10mg Suppository Frequency: Daily PRN Keep PO Greater than or Equal to (%): 94 Routine Lab Work: CBC (WITHIN 3 DAYS) and BMP (WITHIN 3 DAYS) Code Status: Full Code Wound(s) Right Forearm: Wound Type: Skin Tear Therapies Weight Bearing: Weight bearing as tolerated Physical Therapy: Eval and Treat Occupational Therapy: Eval and Treat Problem/Diagnosis (1) Septic shock: Status: Acute (2) Pneumonia due to 2019 novel coronavirus: Status: Acute (3) Lactic acidosis: Status: Acute (4) GERTRUDE (acute kidney injury): Status: Acute (5) Hypokalemia: Status: Acute Allergies/Procedures Done in Hospital Allergies No Known Allergies Allergy (Verified 07/24/21 08:31) Procedures: None Type of Care/Length of Stay Estimated LOS: Convalescent Care Less Than 30 days Type of Care Needed: Skilled Rehab Potential: Good Prognosis: Good Additional Orders/Day of Discharge Day of Discharge: 01/08/22 Dietary and Speech Recommendations Dietitian Recommendations/Changes: Will liberalize diet to regular given poor PO intake today. Will add 4oz ensure compact TID w/ meals for additional calories/protein if consumed. Discharge Plan Admission Admit Date/Time: 01/04/22 13:47 Primary Reason for Your Visit: Acute hypoxic respiratory failure/septic shock/acute COVID-19/pneumonia Attending Provider: Roro Mccoy Primary Care Provider: Gianluca Trevino Consulting Providers: Colton Gold ; Brian Robertson ; Chepe Chang ; Eliana Buchanan CHEMICAL ENGINEERING INTERN Discharge Orders/Prescriptions Prescriptions: New amoxicillin-pot clavulanate [Augmentin] 500-125 mg tablet 1 tab PO BID 2 Days Qty: 4 RF: 0 Continued carbidopa-levodopa 25-100 mg tablet 1.5 tab PO TID RF: 0 tolterodine 2 mg capsule,extended release 24hr 2 cap PO DAILY RF: 0 losartan 25 MG tablet 25 mg PO DAILY RF: 0 atorvastatin 20 MG tablet 20 mg PO DAILY RF: 0 aspirin 81 MG tablet,delayed release (DR/EC) 81 mg PO DAILY RF: 0 tamsulosin 0.4 MG capsule 0.8 mg PO QHS RF: 0 cholecalciferol (vitamin D3) 50 MCG capsule 2,000 unit PO DAILY RF: 0 polysaccharide iron complex 150 MG capsule 150 mg PO DAILYCM Qty: 30 RF: 0 acetaminophen 500 MG tablet 1,000 mg PO Q6H PRN PRN (Reason: Pain Score 1-5) RF: 0 escitalopram oxalate 10 MG tablet 10 mg PO DAILY RF: 0 omega 2-bwl-mbo-fish oil [Fish Oil] 1,200 (144-216) mg Capsule 1,200 cap PO DAILY RF: 0 hydrocortisone 10 mg tablet 20 mg PO BREAKFAST Qty: 180 RF: 1 hydrocortisone 10 mg tablet 10 mg PO DINNER Qty: 90 RF: 1 levothyroxine 112 mcg tablet 112 mcg PO DAILY Qty: 90 RF: 1 Referrals / Follow Up: Gianluca Trevino MD [Primary Care Provider] - In 1 Week Disposition Disposition (needs filled in before D/C Order can be placed): Nursing Home Facility
--- NOTE | 2022-01-08 09:35 | CASEMGMT ---
Addendum entered by Vianca Martinez 01/08/22 09:44: [facility] called [facility]STY and said the soonest they would be able to take patient would be January 15. CHRISTY will await return call from [facility]. Vianca GUILLERMO Original Note: [facility]RISTY called [facility] and spoke with [facility]. She said their corporate is looking at COVID cases. However, they will have to be 11 days out. She will check to see if that is from symptom onset or positive test. CHRISTY called [facility] as they will take patient's 8 days out. CHRISTY left a message for admissions requesting a return call. Vianca GUILLERMO
--- NOTE | 2022-01-08 09:59 | PN.HOSP_ITS ---
Subjective Subjective Follow-up on acute hypoxic respiratory failure/septic shock/acute COVID-19 patient/community-acquired pneumonia: Patient was seen and examined. No acute events overnight. Patient remains a two-person assist. Awaiting discharge to senior living facility. Objective Data Objective Data Vital Signs: Vital Signs Temp Pulse Resp BP Pulse Ox 97.8 F 55 L 18 156/81 H 98 01/08/22 04:16 01/08/22 06:59 01/08/22 04:16 01/08/22 04:16 01/08/22 04:16 Oxygen Flow Rate (L/min) 2 Oxygen Delivery Method Room Air Weight: 98 kg Body Mass Index (BMI) 30.7 Intake & Output: Intake and Output for Last 24 Hours 01/06/22 01/07/22 01/08/22 23:59 23:59 23:59 Intake Total 1060 / 1060 1310 / 1610 650 / 650 Output Total 350 / 350 1450 / 1750 1100 / 1100 Balance 710 / 710 -140 / -140 -450 / -450 Lab / Micro Data Result Diagrams: 01/08/22 05:42 01/08/22 05:42 Labs: Laboratory Results - last 24 hr 01/07/22 12:40: POC Glucose 169 H 01/07/22 16:50: POC Glucose 174 H 01/07/22 22:26: POC Glucose 108 H 01/08/22 05:42: WBC 11.9 H, RBC 3.26 L, Hgb 10.5 L, Hct 31.4 L, MCV 96.3 H, MCH 32.2 H, MCHC 33.4, RDW Std Deviation 47.1 H, RDW Coeff of Delisa 13.2, Plt Count 116 L, MPV 10.9 01/08/22 05:42: Sodium 139, Potassium 3.7, Chloride 112 H, Carbon Dioxide 20.0 L , Anion Gap 7, BUN 34 H, Creatinine 1.56 H, Estim Creat Clear Calc 39.00, Est GFR (MDRD) Af Amer 55 L, Est GFR (MDRD) Non-Af 46 L, BUN/Creatinine Ratio 21.8 H , Glucose 161 H, Calcium 8.2 L, Total Bilirubin 0.60, AST 71 H, ALT 25, Alkaline Phosphatase 30 L, Total Protein 5.6 L, Albumin 2.4 L, Globulin 3.2, Albumin/Globulin Ratio 0.8 L 01/08/22 06:25: POC Glucose 156 H Micro: Microbiology 01/04/22 12:52 Urine Catheter - Catheter Urine Culture - Final Culture exhibits no growth. 01/04/22 12:41 Blood Culture (Wb) - Anticubital Left Blood Culture - Preliminary No growth in 48 hours. 01/04/22 12:20 Blood Culture (Wb) - Right Forearm Blood Culture - Preliminary No growth in 48 hours. 01/05/22 08:30 Stool C. difficile DNA Amplification - Final 01/04/22 15:42 Mucosa - Nasopharyngeal Respiratory Panel (PCR) - Final 01/04/22 16:25 Urine Catheter - Thompson Legionella Antigen - Final 01/04/22 16:25 Urine Catheter - Thompson Streptococcus pneumoniae Antigen (M - Final 01/04/22 12:44 Nasal Secretion SARS-CoV-2 & FLU Antigen (Rapid) - Final SARS-CoV-2 (COVID 19) Physical Exam Narrative Physical exam: General: Alert, oriented x3, cooperative, no apparent distress, appears very frail, obese HEENT: Atraumatic Oral: Moist Mucosa Neck: Supple Lungs: Diminished to auscultation Cardiovascular: HS I+II, regular, no murmurs Abdomen: Bowel Sounds Present, Soft, Non Tender Extremities: Bilateral leg edema+1 Skin: No rashes, No breakdown Neurological: Grossly intact Psych/Mental Status: Appropriate Assessment & Plan Assessment/Plan (1) Septic shock: (2) Pneumonia due to 2019 novel coronavirus: (3) Lactic acidosis: (4) GERTRUDE (acute kidney injury): (5) Hypokalemia: PLAN: 1. Acute hypoxic respiratory failure secondary to acute COVID-19 pneumonia, resolved Continue to encourage use of incentive spirometer 2. Septic shock secondary to Acute COVID-19 pneumonia/probable pneumonia, resolved Patient is severely immunocompromised, status post pituitary macroadenoma removal, on chronic steroids Patient had evidence of organ dysfunction with lactic acidosis, GERTRUDE, respiratory failure Status post fluid boluses, on pressors Resumed on home hydrocortisone doses Infectious disease and pulmonology following 3. Acute COVID-19 pneumonia with hypoxia, community-acquired pneumonia He is unvaccinated against COVID-19 Chest x-ray showed right-sided infiltrates. Gram-positive and negative organisms suspected Procalcitonin elevated at 5.34, CRP is 46.80 Respiratory panel, urine for Legionella and streptococcal antigen are negative Continue on IV Zosyn, Remdesivir Labs in am 4. Elevated D-dimer, unable to do CTA of the chest to rule out acute PE Continue to treat with therapeutic Lovenox 5. Lactic acidosis secondary to #1, will trend 6. Hypertension,hypotension is resolved, will continue to monitor Will have a low threshold to resume home losartan 7. CAD status post stents, continue on aspirin, statin 8. Parkinson's disease, continue on Sinemet 9. BPH/urine incontinence, continue on tamsulosin and tolterodine 10. DVT prophylaxis with Lovenox subcu 11. Disposition: Awaiting DC to SNF Charges/Coding Visit Charges Inpatient E&M: 85386 Subs Hosp L2
[2022-01-08] MEDS: Acetaminophen 325 MG Tablet 650 MG PO (10:23)
[2022-01-08] MEDS: Tolterodine Tartrate 4 MG CAP.SA PO (10:24)
[2022-01-08] MEDS: Losartan Potassium 25 MG Tablet PO (10:24)
[2022-01-08] MEDS: Aspirin E.C. 81 MG Tablet PO (10:24)
[2022-01-08] MEDS: Menthol/Lanolin/Calamine/Znox 113 GM Tube 1 APPLIC TOPICAL ×2 (10:27→22:05)
[2022-01-08] MEDS: Enoxaparin 100 MG/ML Syringe 90 MG SC (10:28)
[2022-01-08 12:01] LABS: Bedside Glucose 120 mg/dL (74-106)
--- NOTE | 2022-01-08 14:12 | CASEMGMT ---
[facility] called SW back. They would be willing to look at the referral. The earliest they could take patient would be Tuesday as that is when he would be 8 days out. Patient also needs pre-cert. Tuesday is a holiday. [facility] could start the pre-cert Tuesday in the hopes they would get an answer back Tuesday. They cannot start the pre-cert now as the earliest they can take patient is Tuesday and [facility] pre-certs are only good for 48 hours. CHRISTY called patient's and she did not answer so CHRISTY left her a voice mail requesting a return call. CHRISTY did let her know in the voice mail that [facility] would not be able to take him until the 15 of January so this would not work. CHRISTY looked at patient's therapy notes today and he did much better. Hopefully patient can improve enough to go home. Await return call from patient's . Vianca Martinez [employer]
[2022-01-08] MEDS: Hydrocortisone 10 MG Tablet PO (17:24)
[2022-01-08 17:26] LABS: Bedside Glucose 108 mg/dL (74-106)
--- NOTE | 2022-01-08 19:27 | CM.ED ---
SW Note SW called patient's and left voice mail for her to call this documentation writer back. Juliann SIM
[2022-01-08] MEDS: 0.9% Saline Lock 10 ML Syringe IV (22:06)
[2022-01-08] MEDS: Tamsulosin HCl 0.4 MG Capsule 0.8 MG PO (22:06)
[2022-01-08] MEDS: Atorvastatin Calcium 20 MG Tablet PO (22:08)
[2022-01-08 22:25] LABS: Bedside Glucose 111 mg/dL (74-106)
[2022-01-09] VITALS (15 sets, daily range): BP systolic 119–172; BP diastolic 63–93; PULSE 59–71; RESP 14–16; TEMP 36.6–37.2; O2SAT 96–100
[2022-01-09] MEDS: Carbidopa/Levodopa 25/100 Tablet PO ×3 (05:51→22:07)
[2022-01-09] MEDS: Levothyroxine 112 MCG Tablet PO (05:52)
[2022-01-09 06:21] LABS: Bedside Glucose 111 mg/dL (74-106)
[2022-01-09] MEDS: 0.9% Saline Lock 10 ML Syringe IV (06:50)
[2022-01-09] MEDS: hydrALAZINE 20 MG/ML Vial 5 MG IV (06:50)
[2022-01-09 07:25] LABS: Hematocrit 31.9 % (40-54); Hemoglobin 10.6 g/dL (13.0-16.5); Mean Corp Hgb Conc 33.2 g/dL (32-36); Mean Corpuscular Hgb 32.5 pg (27.0-32.0); Mean Corpuscular Volume 97.9 fL (80-94); Mean Platelet Vol. 10.2 fl (6.2-12.0); Platelet Count 143 K/mm3 (150-450); RBC Distribution Width CV 13.3 % (11.6-14.6); RBC Distribution Width SD 48.1 fl (35.1-43.9); Red Blood Count 3.26 M/mm3 (4.6-6.2); White Blood Count 7.9 K/mm3 (4.4-11.0)
[2022-01-09 07:44] LABS: ALB/GLOB Ratio 0.8 RATIO (0.9-2.4); AST(SGOT) 48 U/L (15-37); Alanine Aminotransfer ALT/SGPT 22 U/L (16-61); Albumin, Serum 2.3 g/dL (3.2-5.0); Alkaline Phosphatase 32 U/L (45-117); Anion Gap 6 (5-15); BUN 31 mg/dL (7-18); BUN/Creat Ratio 20.4 RATIO (10-20); Calcium,Total 8.2 mg/dL (8.5-10.1); Chloride 113 mmol/L (98-107); Creatinine, Serum 1.52 mg/dL (0.70-1.30); EST Glomerular Filtration Rate 47 mL/min (>60); Est Glom Filt Rate - Afr Amer 57 mL/min (>60); Estimated Creatinine Clearance 40.02 ml/min; Glucose 117 mg/dL (74-106); Potassium 3.2 mmol/L (3.5-5.1); Protein, Total 5.3 g/dL (6.4-8.2); Sodium Level 144 mmol/L (136-145)
[2022-01-09] MEDS: Iron Polysaccharide Complex 150 MG CAPSULE PO (09:34)
[2022-01-09] MEDS: Hydrocortisone 10 MG Tablet 20 MG PO (09:34)
[2022-01-09] MEDS: Enoxaparin 100 MG/ML Syringe 90 MG SC (09:34)
[2022-01-09] MEDS: Aspirin E.C. 81 MG Tablet PO (09:34)
[2022-01-09] MEDS: Tolterodine Tartrate 4 MG CAP.SA PO (09:34)
[2022-01-09] MEDS: Losartan Potassium 50 MG Tablet PO (09:34)
--- NOTE | 2022-01-09 09:52 | PN.HOSP_ITS ---
Subjective Subjective Follow-up on acute hypoxic respiratory failure/septic shock/acute COVID-19 patient/community-acquired pneumonia: Patient was seen and examined. No acute events overnight. Objective Data Objective Data Vital Signs: Vital Signs Temp Pulse Resp BP Pulse Ox 98.4 F 70 16 119/63 98 01/09/22 09:28 01/09/22 09:28 01/09/22 09:28 01/09/22 09:28 01/09/22 09:28 Oxygen Flow Rate (L/min) 2 Oxygen Delivery Method Room Air Weight: 97.5 kg Body Mass Index (BMI) 30.7 Intake & Output: Intake and Output for Last 24 Hours 01/07/22 01/08/22 01/09/22 23:59 23:59 23:59 Intake Total 1310 / 1610 1910.00 / 2150.00 410 / 410 Output Total 1450 / 1750 2050 / 2600 1850 / 1850 Balance -140 / -140 -140.00 / -450.00 -1440 / -1440 Lab / Micro Data Result Diagrams: 01/09/22 07:03 01/09/22 07:03 Labs: Laboratory Results - last 24 hr 01/08/22 11:49: POC Glucose 120 H 01/08/22 16:34: POC Glucose 108 H 01/08/22 22:03: POC Glucose 111 H 01/09/22 05:57: POC Glucose 111 H 01/09/22 07:03: WBC 7.9, RBC 3.26 L, Hgb 10.6 L, Hct 31.9 L, MCV 97.9 H, MCH 32.5 H, MCHC 33.2, RDW Std Deviation 48.1 H, RDW Coeff of Delisa 13.3, Plt Count 143 L, MPV 10.2 01/09/22 07:03: Sodium 144, Potassium 3.2 L, Chloride 113 H, Carbon Dioxide 25.0, Anion Gap 6, BUN 31 H, Creatinine 1.52 H, Estim Creat Clear Calc 40.02, Est GFR (MDRD) Af Amer 57 L, Est GFR (MDRD) Non-Af 47 L, BUN/Creatinine Ratio 20.4 H, Glucose 117 H, Calcium 8.2 L, Total Bilirubin 0.50, AST 48 H, ALT 22, Alkaline Phosphatase 32 L, Total Protein 5.3 L, Albumin 2.3 L, Globulin 3.0, Al bumin/Globulin Ratio 0.8 L Micro: Microbiology 01/04/22 12:52 Urine Catheter - Catheter Urine Culture - Final Culture exhibits no growth. 01/04/22 12:41 Blood Culture (Wb) - Anticubital Left Blood Culture - Preliminary No growth in 48 hours. 01/04/22 12:20 Blood Culture (Wb) - Right Forearm Blood Culture - Preliminary No growth in 48 hours. 01/05/22 08:30 Stool C. difficile DNA Amplification - Final 01/04/22 15:42 Mucosa - Nasopharyngeal Respiratory Panel (PCR) - Final 01/04/22 16:25 Urine Catheter - Thompson Legionella Antigen - Final 01/04/22 16:25 Urine Catheter - Thompson Streptococcus pneumoniae Antigen (M - Final 01/04/22 12:44 Nasal Secretion SARS-CoV-2 & FLU Antigen (Rapid) - Final SARS-CoV-2 (COVID 19) Physical Exam Narrative Physical exam: General: Alert, oriented x3, cooperative, no apparent distress, appears very frail, obese HEENT: Atraumatic Oral: Moist Mucosa Neck: Supple Lungs: Diminished to auscultation Cardiovascular: HS I+II, regular, no murmurs Abdomen: Bowel Sounds Present, Soft, Non Tender Extremities: Bilateral leg edema+1 Skin: No rashes, No breakdown Neurological: Grossly intact Psych/Mental Status: Appropriate Assessment & Plan Assessment/Plan (1) Septic shock: (2) Pneumonia due to 2019 novel coronavirus: (3) Lactic acidosis: (4) GERTRUDE (acute kidney injury): (5) Hypokalemia: PLAN: 1. Acute hypoxic respiratory failure secondary to acute COVID-19 pneumonia, resolved Continue to encourage use of incentive spirometer 2. Septic shock secondary to Acute COVID-19 pneumonia/probable pneumonia, resolved Patient is severely immunocompromised, status post pituitary macroadenoma removal, on chronic steroids Patient had evidence of organ dysfunction with lactic acidosis, GERTRUDE, respiratory failure Status post fluid boluses, on pressors Resumed on home hydrocortisone doses Infectious disease and pulmonology following 3. Acute COVID-19 pneumonia with hypoxia, community-acquired pneumonia He is unvaccinated against COVID-19 Chest x-ray showed right-sided infiltrates. Gram-positive and negative organisms suspected Procalcitonin elevated at 5.34, CRP is 46.80 Respiratory panel, urine for Legionella and streptococcal antigen are negative Completed remdesivir Continue on IV Zosyn; last dose tomorrow Labs in am 4. Elevated D-dimer, unable to do CTA of the chest to rule out acute PE Continue to treat with therapeutic Lovenox Will need switch to Eliquis at discharge. 5. Lactic acidosis secondary to #1, will trend 6. Hypertension,hypotension is resolved, will continue to monitor Will have a low threshold to resume home losartan 7. CAD status post stents, continue on aspirin, statin 8. Parkinson's disease, continue on Sinemet 9. BPH/urine incontinence, continue on tamsulosin and tolterodine 10. DVT prophylaxis with Lovenox subcu 11. Disposition: Awaiting DC to SNF Charges/Coding Visit Charges Inpatient E&M: 61135 Subs Hosp L2
[2022-01-09] MEDS: Menthol/Lanolin/Calamine/Znox 113 GM Tube 1 APPLIC TOPICAL ×2 (11:21→22:15)
[2022-01-09 11:36] LABS: Bedside Glucose 102 mg/dL (74-106)
--- NOTE | 2022-01-09 12:01 | CM.ED ---
Addendum entered by Sepideh Palma 01/09/22 14:01: SW went ahead and faxed referral to [facility]. Original Note: Social Work Note SW updated that pt's is requesting pt go to [facility]. CHRISTY placed a call to Prachi at [facility] and asked about COVID policy Prachi states that they will take COVID patients that are 10 days out from when symptoms started and pt will have to be 24 hours free of any fecer reducing medication. [facility] states that they do have beds available. CHRISTY placed a call to pt's to confirm SNF choice, no answer. CHRISTY left message requesting call back. Plan: SNF pending acceptance and pre-cert Sepideh Palma [employer], [employer]OV[employer] TE[employer]
[2022-01-09] MEDS: Hydrocortisone 10 MG Tablet PO (17:46)
[2022-01-09 18:01] LABS: Bedside Glucose 141 mg/dL (74-106)
[2022-01-09] MEDS: Potassium Chloride Oral Tablet 20 MEQ 40 MEQ PO (19:51)
[2022-01-09] MEDS: Tamsulosin HCl 0.4 MG Capsule 0.8 MG PO (22:07)
[2022-01-09] MEDS: Atorvastatin Calcium 20 MG Tablet PO (22:16)
[2022-01-09 22:31] LABS: Bedside Glucose 135 mg/dL (74-106)
[2022-01-10] VITALS (9 sets, daily range): BP systolic 100–151; BP diastolic 59–83; PULSE 61–74; RESP 14–18; TEMP 36.6–36.9; O2SAT 97–99
[2022-01-10] MEDS: Carbidopa/Levodopa 25/100 Tablet PO ×3 (06:09→22:02)
[2022-01-10] MEDS: Levothyroxine 112 MCG Tablet PO (06:10)
[2022-01-10 06:16] LABS: Absolute Lymphocyte Count 1.29 X10^3/uL (0.83-4.51); Absolute Neutrophil Count 4.5 X10^3/uL (2.0-7.7); Basophil# 0.02 X10^3/uL; Basophil% 0.3 % (0-1); Eosinophil# 0.28 X10^3/uL; Hematocrit 34.2 % (40-54); Lymphocyte # 1.29 X10^3/ul (0.83-4.51); Lymphocyte % 18.2 % (19-41); Mean Corp Hgb Conc 32.2 g/dL (32-36); Mean Corpuscular Hgb 31.5 pg (27.0-32.0); Monocyte# 0.68 X10^3/uL; Monocyte% 9.6 % (0-10); NRBC Flagged by Analyzer 0 % (0-5); Neutrophil # 4.54 X10^3/uL (2.7-7.7); Neutrophil % 64.2 % (47-70); Platelet Count 166 K/mm3 (150-450); RBC Distribution Width CV 13.3 % (11.6-14.6); RBC Distribution Width SD 47.6 fl (35.1-43.9); Red Blood Count 3.49 M/mm3 (4.6-6.2); White Blood Count 7.1 K/mm3 (4.4-11.0)
[2022-01-10 06:25] LABS: Bedside Glucose 112 mg/dL (74-106)
[2022-01-10 06:50] LABS: ALB/GLOB Ratio 0.8 RATIO (0.9-2.4); AST(SGOT) 40 U/L (15-37); Alanine Aminotransfer ALT/SGPT 17 U/L (16-61); Albumin, Serum 2.5 g/dL (3.2-5.0); Alkaline Phosphatase 36 U/L (45-117); Anion Gap 4 (5-15); BUN 24 mg/dL (7-18); BUN/Creat Ratio 16.2 RATIO (10-20); Calcium,Total 8.9 mg/dL (8.5-10.1); Chloride 110 mmol/L (98-107); Creatinine, Serum 1.48 mg/dL (0.70-1.30); EST Glomerular Filtration Rate 49 mL/min (>60); Est Glom Filt Rate - Afr Amer 59 mL/min (>60); Globulin 3.2 g/dL (2.2-4.2); Glucose 125 mg/dL (74-106); Potassium 4.2 mmol/L (3.5-5.1); Protein, Total 5.7 g/dL (6.4-8.2); Sodium Level 141 mmol/L (136-145)
--- NOTE | 2022-01-10 07:22 | PN.HOSP_ITS ---
Subjective Subjective Follow-up on acute hypoxic respiratory failure/septic shock/acute COVID-19 patient/community-acquired pneumonia: Patient was seen and examined. No acute events overnight. He is eager to be discharged. Denies any fever or chills. His cough is improved. Objective Data Objective Data Vital Signs: Vital Signs Temp Pulse Resp BP Pulse Ox 98.2 F 64 16 151/83 H 99 01/10/22 03:44 01/10/22 03:44 01/10/22 03:44 01/10/22 03:44 01/10/22 03:44 Oxygen Flow Rate (L/min) 2 Oxygen Delivery Method Room Air Weight: 95.3 kg Body Mass Index (BMI) 30.7 Intake & Output: Intake and Output for Last 24 Hours 01/08/22 01/09/22 01/10/22 23:59 23:59 23:59 Intake Total 1910.00 / 2150.00 2325.5 / 2325.5 610 / 610 Output Total 2050 / 2600 3850 / 3850 1200 / 1200 Balance -140.00 / -450.00 -1524.5 / -1524.5 -590 / -590 Lab / Micro Data Result Diagrams: 01/10/22 06:02 01/10/22 06:02 Labs: Laboratory Results - last 24 hr 01/09/22 07:03: WBC 7.9, RBC 3.26 L, Hgb 10.6 L, Hct 31.9 L, MCV 97.9 H, MCH 32 .5 H, MCHC 33.2, RDW Std Deviation 48.1 H, RDW Coeff of Delisa 13.3, Plt Count 143 L, MPV 10.2 01/09/22 07:03: Sodium 144, Potassium 3.2 L, Chloride 113 H, Carbon Dioxide 25.0, Anion Gap 6, BUN 31 H, Creatinine 1.52 H, Estim Creat Clear Calc 40.02, Est GFR (MDRD) Af Amer 57 L, Est GFR (MDRD) Non-Af 47 L, BUN/Creatinine Ratio 20.4 H, Glucose 117 H, Calcium 8.2 L, Total Bilirubin 0.50, AST 48 H, ALT 22, Alkaline Phosphatase 32 L, Total Protein 5.3 L, Albumin 2.3 L, Globulin 3.0, Albumin/Globulin Ratio 0.8 L 01/09/22 11:20: POC Glucose 102 01/09/22 17:45: POC Glucose 141 H 01/09/22 22:06: POC Glucose 135 H 01/10/22 06:02: WBC 7.1, RBC 3.49 L, Hgb 11.0 L, Hct 34.2 L, MCV 98.0 H, MCH 31.5, MCHC 32.2, RDW Std Deviation 47.6 H, RDW Coeff of Delisa 13.3, Plt Count 166, MPV 10.0, Immature Gran % (Auto) 3.700 H, Neut % (Auto) 64.2, Lymph % (Auto) 18.2 L, [place] % (Auto) 9.6, Eos % (Auto) 4.0, Baso % (Auto) 0.3, Absolute Neuts (auto) 4.5, Absolute Lymphs (auto) 1.29, Nucleated RBC % 0 01/10/22 06:02: Sodium 141, Potassium 4.2, Chloride 110 H, Carbon Dioxide 27.0, Anion Gap 4 L, BUN 24 H, Creatinine 1.48 H, Estim Creat Clear Calc 41.10, Est GFR (MDRD) Af Amer 59 L, Est GFR (MDRD) Non-Af 49 L, BUN/Creatinine Ratio 16.2, Glucose 125 H, Calcium 8.9, Total Bilirubin 0.80, AST 40 H, ALT 17, Alkaline Phosphatase 36 L, Total Protein 5.7 L, Albumin 2.5 L, Globulin 3.2, Albumin/Globulin Ratio 0.8 L 01/10/22 06:14: POC Glucose 112 H Micro: Microbiology 01/04/22 12:20 Blood Culture (Wb) - Right Forearm Blood Culture - Final No growth in 5 days. 01/04/22 12:41 Blood Culture (Wb) - Anticubital Left Blood Culture - Final No growth in 5 days. 01/04/22 12:52 Urine Catheter - Catheter Urine Culture - Final Culture exhibits no growth. 01/05/22 08:30 Stool C. difficile DNA Amplification - Final 01/04/22 15:42 Mucosa - Nasopharyngeal Respiratory Panel (PCR) - Final 01/04/22 16:25 Urine Catheter - Thompson Legionella Antigen - Final 01/04/22 16:25 Urine Catheter - Thompson Streptococcus pneumoniae Antigen (M - Final 01/04/22 12:44 Nasal Secretion SARS-CoV-2 & FLU Antigen (Rapid) - Final SARS-CoV-2 (COVID 19) Physical Exam Narrative Physical exam: General: Alert, oriented x3, cooperative, no apparent distress, appears very frail, obese HEENT: Atraumatic Oral: Moist Mucosa Neck: Supple Lungs: Diminished to auscultation Cardiovascular: HS I+II, regular, no murmurs Abdomen: Bowel Sounds Present, Soft, Non Tender Extremities: Bilateral leg edema+1 Skin: No rashes, No breakdown Neurological: Grossly intact Psych/Mental Status: Appropriate Assessment & Plan Assessment/Plan (1) Septic shock: (2) Pneumonia due to 2019 novel coronavirus: (3) Lactic acidosis: (4) GERTRUDE (acute kidney injury): (5) Hypokalemia: PLAN: Summary: 81-year-old with past medical history of Parkinson's disease, secondary adrenal insufficiency, hypertension, who comes in with with shortness of breath and fever ongoing for 1 day. He was found to be septic initially managed in the ICU. His hospital course/management was as follows: 1. Acute hypoxic respiratory failure secondary to acute COVID-19 pneumonia, resolved Patient is now on room air Continue to encourage use of incentive spirometer 2. Septic shock secondary to Acute COVID-19 pneumonia/probable pneumonia, resolved Patient is severely immunocompromised, status post pituitary macroadenoma removal, on chronic steroids Patient had evidence of organ dysfunction with lactic acidosis, GERTRUDE, respiratory failure on admission Status post fluid boluses, on pressors in the ICU Currently resumed on home hydrocortisone doses Infectious disease and pulmonology following 3. Acute COVID-19 pneumonia with hypoxia, community-acquired pneumonia He is unvaccinated against COVID-19 Chest x-ray showed right-sided infiltrates. Gram-positive and negative organisms suspected Procalcitonin elevated at 5.34, CRP is 46.80 Respiratory panel, urine for Legionella and streptococcal antigen are negative Completed remdesivir and IV antibiotics -Zosyn(LAST DOSE TONIGHT) Labs in am 4. Elevated D-dimer, unable to do CTA of the chest to rule out acute PE Continue to treat with therapeutic Lovenox Will need switch to Eliquis at discharge. 5. Lactic acidosis secondary to #1, will trend 6. Hypertension,hypotension is resolved, BP is controlled Restarted on home losartan Will continue to monitor 7. CAD status post stents, continue on aspirin, statin 8. Parkinson's disease, continue on Sinemet 9. BPH/urine incontinence, continue on tamsulosin and tolterodine 10. DVT prophylaxis with Lovenox subcu 11. Disposition: Awaiting DC to SNF Charges/Coding Visit Charges Inpatient E&M: 41411 Subs Hosp L2
[2022-01-10] MEDS: Enoxaparin 100 MG/ML Syringe 90 MG SC (10:04)
[2022-01-10] MEDS: Tolterodine Tartrate 4 MG CAP.SA PO (10:05)
[2022-01-10] MEDS: Aspirin E.C. 81 MG Tablet PO (10:05)
[2022-01-10] MEDS: Hydrocortisone 10 MG Tablet 20 MG PO (10:05)
[2022-01-10] MEDS: Iron Polysaccharide Complex 150 MG CAPSULE PO (10:05)
[2022-01-10] MEDS: Losartan Potassium 50 MG Tablet PO (10:05)
[2022-01-10] MEDS: Menthol/Lanolin/Calamine/Znox 113 GM Tube 1 APPLIC TOPICAL ×2 (10:10→21:56)
[2022-01-10 12:11] LABS: Bedside Glucose 135 mg/dL (74-106)
[2022-01-10] MEDS: Hydrocortisone 10 MG Tablet PO (17:43)
[2022-01-10 17:55] LABS: Bedside Glucose 124 mg/dL (74-106)
[2022-01-10] MEDS: Insulin Lispro 100 UNIT/ML INSULN.PEN SC (21:58)
[2022-01-10] MEDS: Tamsulosin HCl 0.4 MG Capsule 0.8 MG PO (22:02)
[2022-01-10] MEDS: Atorvastatin Calcium 20 MG Tablet PO (22:02)
[2022-01-10 22:16] LABS: Bedside Glucose 158 mg/dL (74-106)
[2022-01-11] VITALS (9 sets, daily range): BP systolic 118–151; BP diastolic 67–78; PULSE 61–75; RESP 14–18; TEMP 36.6–36.8; O2SAT 95–98
[2022-01-11] MEDS: Acetaminophen 325 MG Tablet 650 MG PO ×3 (03:29→18:40)
[2022-01-11] MEDS: Carbidopa/Levodopa 25/100 Tablet PO ×3 (06:18→20:53)
[2022-01-11] MEDS: Levothyroxine 112 MCG Tablet PO (06:18)
[2022-01-11] MEDS: 0.9% Saline Lock 10 ML Syringe IV ×3 (06:19→20:53)
[2022-01-11 06:50] LABS: Bedside Glucose 120 mg/dL (74-106)
[2022-01-11] MEDS: Iron Polysaccharide Complex 150 MG CAPSULE PO (08:39)
[2022-01-11] MEDS: Tolterodine Tartrate 4 MG CAP.SA PO (08:39)
[2022-01-11] MEDS: Enoxaparin 100 MG/ML Syringe 90 MG SC ×2 (08:39→20:52)
[2022-01-11] MEDS: Aspirin E.C. 81 MG Tablet PO (08:39)
[2022-01-11] MEDS: Hydrocortisone 10 MG Tablet 20 MG PO (08:40)
[2022-01-11] MEDS: Losartan Potassium 50 MG Tablet PO (08:40)
[2022-01-11] MEDS: Menthol/Lanolin/Calamine/Znox 113 GM Tube 1 APPLIC TOPICAL ×2 (08:41→20:56)
[2022-01-11 12:36] LABS: Bedside Glucose 143 mg/dL (74-106)
--- NOTE | 2022-01-11 16:40 | PCM.PN.HOSP ---
Subjective Subjective Patient was seen and examined today, he states he would like to go home if possible upon discharge from the hospital rather than go to an extended care facility. Patient is currently on room air-'s pulse ox is 98%, he does not complain of any chest pain or shortness of breath. Patient's blood pressures also been stable. Objective Data Objective Data Vital Signs: Vital Signs Temp Pulse Resp BP Pulse Ox 98.2 F 66 14 142/69 H 98 01/11/22 15:25 01/11/22 16:10 01/11/22 15:25 01/11/22 15:25 01/11/22 15:25 Oxygen Flow Rate (L/min) 2 Oxygen Delivery Method Room Air Weight: 96.3 kg Body Mass Index (BMI) 30.7 Intake & Output: Intake and Output for Last 24 Hours 01/09/22 01/10/22 01/11/22 23:59 23:59 23:59 Intake Total 2325.5 / 2325.5 2339.5 / 2339.5 970 / 970 Output Total 3850 / 3850 3850 / 3850 1600 / 1600 Balance -1524.5 / -1524.5 -1510.5 / -1510.5 -630 / -630 Lab / Micro Data Result Diagrams: 01/10/22 06:02 01/10/22 06:02 Labs: Laboratory Results - last 24 hr 01/10/22 17:42: POC Glucose 124 H 01/10/22 21:57: POC Glucose 158 H 01/11/22 06:29: POC Glucose 120 H 01/11/22 12:22: POC Glucose 143 H Micro: Microbiology 01/10/22 06:15 Sputum, Expectorated/Coughed Gram Stain - Final 01/10/22 06:15 Sputum, Expectorated/Coughed Respiratory Culture - Preliminary Presumptive C albicans 01/04/22 12:20 Blood Culture (Wb) - Right Forearm Blood Culture - Final No growth in 5 days. 01/04/22 12:41 Blood Culture (Wb) - Anticubital Left Blood Culture - Final No growth in 5 days. 01/04/22 12:52 Urine Catheter - Catheter Urine Culture - Final Culture exhibits no growth. 01/05/22 08:30 Stool C. difficile DNA Amplification - Final 01/04/22 15:42 Mucosa - Nasopharyngeal Respiratory Panel (PCR) - Final 01/04/22 16:25 Urine Catheter - Thompson Legionella Antigen - Final 01/04/22 16:25 Urine Catheter - Thompson Streptococcus pneumoniae Antigen (M - Final 01/04/22 12:44 Nasal Secretion SARS-CoV-2 & FLU Antigen (Rapid) - Final SARS-CoV-2 (COVID 19) Physical Exam Const alert, oriented x3, no apparent distress, average body habitus and healthy appearing General Appearance: cooperative, well kempt and well developed Orientation / Consciousness: awake, oriented to person, oriented to place and oriented to time HEENT normocephalic, head/scalp atraumatic and moist oral mucous membranes Head and Scalp: normocephalic Eyes PERRL, EOMs intact bilaterally and conjunctivae normal Neck nuchal rigidity, supple, no JVD, thyroid normal and no carotid bruits General: trachea midline Resp normal respiratory effort, no retractions, no use of accessory muscles and clear to auscultation bilaterally Auscultation: Negative for rales, rhonchi or wheezes Cardio regular rate, regular rhythm, S1 normal heart sound, S2 normal heart sound, no murmurs, no rub and no gallops GI normal to inspection, nondistended, normoactive bowel sounds, soft to palpation, non-tender and non-distended Extremity no clubbing, cyanosis or edema Skin no rashes or lesions noted and no wounds General Skin Exam: no breakdown Neuro oriented x3, CN's II-XII intact bilaterally, no focal motor deficits and no sensory deficits noted Sensorium / Orientation: awake and alert Speech: speech normal Psych affect normal Assessment & Plan Assessment/Plan (1) Septic shock: PLAN: 1. Septic shock secondary to COVID-19 infection-patient's blood pressure has recovered, continue PT and OT, talked briefly with patient's son today by phone-if patient does not require detention, he can return home at the time of discharge from the hospital. #2 acute kidney injury-patient's creatinine is improving, it appears that his baseline may have been reached. #3 Parkinson's disease-continue PT and OT, patient is on Sinemet #4 essential hypertension-patient will remain on losartan #5 hypothyroidism-patient will remain on Synthroid #6 adrenal insufficiency-patient remains on Cortef Charges/Coding Visit Charges Inpatient E&M: 19663 Subs Hosp L3
[2022-01-11] MEDS: Hydrocortisone 10 MG Tablet PO (17:07)
[2022-01-11 17:16] LABS: Bedside Glucose 149 mg/dL (74-106)
[2022-01-11] MEDS: Tamsulosin HCl 0.4 MG Capsule 0.8 MG PO (20:52)
[2022-01-11] MEDS: Atorvastatin Calcium 20 MG Tablet PO (20:52)
[2022-01-11 21:11] LABS: Bedside Glucose 137 mg/dL (74-106)
[2022-01-12 02:57] VITALS: PULSE 63
[2022-01-12 03:05] VITALS: BP 156/75; PULSE 63; RESP 16; TEMP 36.9; O2SAT 97
[2022-01-12] MEDS: Acetaminophen 325 MG Tablet 650 MG PO ×2 (03:12→09:39)
[2022-01-12] MEDS: Carbidopa/Levodopa 25/100 Tablet PO ×2 (06:21→13:16)
[2022-01-12] MEDS: Levothyroxine 112 MCG Tablet PO (06:21)
[2022-01-12] MEDS: 0.9% Saline Lock 10 ML Syringe IV (06:25)
[2022-01-12 06:51] LABS: Bedside Glucose 120 mg/dL (74-106)
[2022-01-12 09:33] VITALS: BP 106/54; PULSE 76; RESP 18; TEMP 36.4; O2SAT 95
[2022-01-12] MEDS: Enoxaparin 100 MG/ML Syringe 90 MG SC (09:39)
[2022-01-12] MEDS: Aspirin E.C. 81 MG Tablet PO (09:40)
[2022-01-12] MEDS: Iron Polysaccharide Complex 150 MG CAPSULE PO (09:40)
[2022-01-12] MEDS: Tolterodine Tartrate 4 MG CAP.SA PO (09:40)
[2022-01-12] MEDS: Hydrocortisone 10 MG Tablet 20 MG PO (09:40)
[2022-01-12] MEDS: Menthol/Lanolin/Calamine/Znox 113 GM Tube 1 APPLIC TOPICAL (09:42)
[2022-01-12 11:00] VITALS: O2SAT 96; O2SAT 97
--- NOTE | 2022-01-12 11:30 | CASEMGMT ---
Addendum entered by Toshia Ingram 01/12/22 14:50: Pt does not qualify for Home O2 Addendum entered by Toshia Ingram 01/12/22 12:15: called DAVID SULLIVAN back. updated on Dr Trevino appt tomorrow @ 3:20 PM and [facility] tentatively to start Tuesday. Original Note: DAVID SULLIVAN NOTE: Pt being discharged and per MD, he would now like to discharge home. DAVID SULLIVAN placed call to pt and he confirms he would like to go home and is interested in HHC. Pt has had [facility]HC in the past and states would like them again. Pt was provided with list of HHC providers including quality and resource use data and consistent with the patient's preferred geographic region, medical needs, and insurance network. Order placed for HHC: SN and PT/OT. Pt states does not feel he needs an aide. Call placed to Kasandra [facility]. She was made aware pt is discharging home today. She states they are able to accept pt, but Dr Trevino requests pt be seen in his office prior to following pt for HHC. Call placed to Dr Trevino's office and spoke w/nurse Velarde. She was made aware pt tested + for COVID 01/04, but symptoms started 01/01. Inquired if appt could be scheduled via Telehealth appt or if they would be able to see him in the office. She states pt can come into the office. Appt scheduled for tomorrow 01/13 @ 3:20 PM. Pt made aware of all of the above and notified [facility] would contact him to schedule SOC appt once he has appt w/Dr Trevino. Call also placed to pt's to update her. No answer. VM left for return call to DAVID SULLIVAN. Kasandra @ [facility] notified of appt scheduled for tomorrow and states they will tentatively plan for SOC on Tuesday. Pt denies having any other home-going needs or concerns. Pt to have Home O2 ambulatory testing completed prior to discharge. Aracely BOYER RN, CM
[2022-01-12 12:01] LABS: Bedside Glucose 130 mg/dL (74-106)
[2022-01-12 13:02] VITALS: O2SAT 98
--- NOTE | 2022-01-12 14:18 | PCM.DC ---
Discharge Instructions Diet Discharge Diet: No restrictions Activity Discharge Activity: Return to Normal Activity and Use Walker Weight Bearing Status: Weight bearing as tolerated Follow Up Care Test Results: Test results from this visit will be discussed in further detail at your follow-up appointment, if applicable. Discharge Plan Admission Admit Date/Time: 01/04/22 13:47 Primary Reason for Your Visit: Acute hypoxic respiratory failure/septic shock/acute COVID-19/pneumonia Attending Provider: Omer Drummond Primary Care Provider: Gianluca Trevino Consulting Providers: Colton Gold ; Brian Robertson ; Chepe Chang ; Eliana Buchanan NP ; Roro Mccoy Instructions Additional Instructions / Restrictions: You will need to discuss with Dr. Trevino if you need to resume your Losartin for blood pressure Discharge Orders/Prescriptions Prescriptions: Continued carbidopa-levodopa 25-100 mg tablet 1.5 tab PO TID RF: 0 tolterodine 2 mg capsule,extended release 24hr 2 cap PO DAILY RF: 0 atorvastatin 20 MG tablet 20 mg PO DAILY RF: 0 aspirin 81 MG tablet,delayed release (DR/EC) 81 mg PO DAILY RF: 0 tamsulosin 0.4 MG capsule 0.8 mg PO QHS RF: 0 cholecalciferol (vitamin D3) 50 MCG capsule 2,000 unit PO DAILY RF: 0 polysaccharide iron complex 150 MG capsule 150 mg PO DAILYCM Qty: 30 RF: 0 acetaminophen 500 MG tablet 1,000 mg PO Q6H PRN PRN (Reason: Pain Score 1-5) RF: 0 escitalopram oxalate 10 MG tablet 10 mg PO DAILY RF: 0 omega 6-cwx-jje-fish oil [Fish Oil] 1,200 (144-216) mg Capsule 1,200 cap PO DAILY RF: 0 hydrocortisone 10 mg tablet 20 mg PO BREAKFAST Qty: 180 RF: 1 hydrocortisone 10 mg tablet 10 mg PO DINNER Qty: 90 RF: 1 levothyroxine 112 mcg tablet 112 mcg PO DAILY Qty: 90 RF: 1 Discontinued losartan 25 MG tablet 25 mg PO DAILY RF: 0 Referrals / Follow Up: Gianluca Trevino MD [Primary Care Provider] - 01/13/22 3:20 pm () Disposition Disposition (needs filled in before D/C Order can be placed): Home Health Service
[2022-01-12 14:23] VITALS: BP 90/60; PULSE 72; RESP 18; TEMP 36.4; O2SAT 100
[2022-01-12] MEDS: Hydrocortisone 10 MG Tablet PO (16:45)
--- NOTE | 2022-01-12 19:55 | PCM.DC.SUM ---
Providers Date of Admission: 01/04/22 Date of Discharge: 01/12/22 Primary Care Physician: Dr. Gianluca Trevino MD Consultations 01/04/22 15:30 Consult: Infectious Disease Routine Consulting Provider: Colton Gold Reason for Consult: Covid-19 EMERGENT Consult: No Notified: Yes Date Notified: 01/04/22 Time Notified: 13:54 Method of Notification: Text Consult: Genetic Scientist / Pulmonary Medicine Routine Consulting Provider: [facility] [place] Reason for Consult: Covid-19 EMERGENT Consult: No Notified: Yes Date Notified: 01/04/22 Time Notified: 13:54 Method of Notification: Verbal Reason For Visit: SHOCK Diagnosis Discharge Diagnosis (1) Septic shock: Status: Acute Code(s): A41.9 - Sepsis, unspecified organism; R65.21 - Severe sepsis with septic shock Plan: 1. Septic shock secondary to COVID-19 infection #2 acute kidney injury #3 Parkinson's disease #4 essential hypertension #5 hypothyroidism #6 chronic adrenal insufficiency #7 acute hypoxic respiratory failure secondary to acute COVID-19 pneumonia #8 acute COVID-19 pneumonia #9 lactic acidosis secondary to #1 #10 hypokalemia Medications at Discharge Home Medications atorvastatin 20 mg PO DAILY 12/25/19 aspirin 81 mg PO DAILY 01/16/20 tamsulosin 0.8 mg PO QHS 01/16/20 carbidopa 25 mg-levodopa 100 mg tablet 1.5 tab PO TID tab 07/24/20 cholecalciferol (vitamin D3) 2,000 unit PO DAILY 09/08/20 acetaminophen 1,000 mg PO Q6H PRN PRN tab 09/25/20 escitalopram oxalate 10 mg PO DAILY tab 09/25/20 polysaccharide iron complex 150 mg PO DAILYCM #30 cap 09/25/20 omega 0-knc-vpw-fish oil [Fish Oil] 1,200 cap PO DAILY 12/22/20 hydrocortisone 10 mg tablet 10 mg PO DINNER #90 tab 05/25/21 hydrocortisone 10 mg tablet 20 mg PO BREAKFAST #180 tab 05/25/21 tolterodine 2 mg capsule,extended release 24 hr 2 cap PO DAILY 07/24/21 levothyroxine 112 mcg tablet 112 mcg PO DAILY #90 tab 08/25/21 Hospital Course Operations None Procedures None Summary of Care Provided Minutes Spent on Discharge: 32 Hospital Course: This 81-year-old white male was seen in the emergency room at [facility] with complaints of cough, malaise, and generalized debility. Patient was not vaccinated against COVID-19, he stated his is also feeling ill the day before. Patient was noted to have a fever of 102 and a pulse ox on room air in the 70s. Patient's chronic medical problems include Parkinson's disease and chronic adrenal insufficiency. Patient had to be placed on a nonrebreather to maintain his pulse ox in the emergency room, white blood cell count was 7.8, creatinine was elevated to 2.11, potassium was low at 2.9, lactate was elevated at 9.1. Troponin was unremarkable, chest x-ray showed right lower lobe infiltrate and was given IV normal saline in the emergency room as well as dexamethasone, central line was placed also. Patient's COVID-19 antigen test was positive, he was not initially started on antibiotics but when he was admitted to the floor he was placed on IV antibiotics. Patient was admitted to ICU, he required Levophed to maintain his blood pressure and was felt to have septic shock. Patient was seen by critical care and infectious diseases, he was placed on remdesivir and IV steroids, his overall condition improved during his hospitalization, he was moved to PCU and he was seen by PT and OT. Initially was thought that the patient may require short-term placement in a assisted facility, but his ADLs improved during his hospitalization. On 01/12/2022, patient was seen and examined: On examination he appeared in good health and spirits. Vital signs as documented. Skin warm and dry and without overt rashes. Neck without JVD, neck was supple, trachea midline, thyroid was normal. Lungs clear bilaterally, normal air movement was noted. Heart exam notable for regular rhythm, normal sounds and absence of murmurs, rubs or gallops. Abdomen unremarkable and without evidence of organomegaly, masses, or abdominal aortic enlargement. Bowel sounds are present, abdomen is not distended. Extremities nonedematous, no cyanosis was noted, no clubbing was noted. Neuro: Cranial nerves II through XII are grossly intact, no focal motor deficits were noted, sensation to light touch and pinprick intact, motor exam 5/5 throughout. Psych: Patient is alert and oriented x3, he does not appear anxious or depressed, he does not appear agitated. Patient appeared to be stable for discharge home on 01/12/2022 with home health services. Weight / BMI Weight Weight: 97.2 kg Body Mass Index (BMI) 30.7 ABG / Lab / Microbiology Data Result Diagrams: 01/10/22 06:02 01/10/22 06:02 Laboratory: Laboratory Results - last 24 hr 01/11/22 20:50: POC Glucose 137 H 01/12/22 06:17: POC Glucose 120 H 01/12/22 11:35: POC Glucose 130 H Microbiology: Microbiology 01/10/22 06:15 Sputum, Expectorated/Coughed Gram Stain - Final 01/10/22 06:15 Sputum, Expectorated/Coughed Respiratory Culture - Final Presumptive C albicans 01/04/22 12:20 Blood Culture (Wb) - Right Forearm Blood Culture - Final No growth in 5 days. 01/04/22 12:41 Blood Culture (Wb) - Anticubital Left Blood Culture - Final No growth in 5 days. 01/04/22 12:52 Urine Catheter - Catheter Urine Culture - Final Culture exhibits no growth. 01/05/22 08:30 Stool C. difficile DNA Amplification - Final 01/04/22 15:42 Mucosa - Nasopharyngeal Respiratory Panel (PCR) - Final 01/04/22 16:25 Urine Catheter - Thompson Legionella Antigen - Final 01/04/22 16:25 Urine Catheter - Thompson Streptococcus pneumoniae Antigen (M - Final 01/04/22 12:44 Nasal Secretion SARS-CoV-2 & FLU Antigen (Rapid) - Final SARS-CoV-2 (COVID 19) D/C Instructions Discharge Diet: No restrictions Weight Bearing Status: Weight bearing as tolerated Meaningful Use Info Meaningful Use Diagnoses (Choose all that apply): None applicable Discharge Plan Admission Admit Date/Time: 01/04/22 13:47 Primary Reason for Your Visit: Acute hypoxic respiratory failure/septic shock/acute COVID-19/pneumonia Attending Provider: Omer Drummond Primary Care Provider: Gianluca Trevino Consulting Providers: Colton Gold ; Brian Robertson ; Chepe Chang ; Eliana Buchanan NP ; Roro Mccoy Instructions Additional Instructions / Restrictions: You will need to discuss with Dr. Trevino if you need to resume your Losartin for blood pressure Discharge Orders/Prescriptions Prescriptions: Continued carbidopa-levodopa 25-100 mg tablet 1.5 tab PO TID RF: 0 tolterodine 2 mg capsule,extended release 24hr 2 cap PO DAILY RF: 0 atorvastatin 20 MG tablet 20 mg PO DAILY RF: 0 aspirin 81 MG tablet,delayed release (DR/EC) 81 mg PO DAILY RF: 0 tamsulosin 0.4 MG capsule 0.8 mg PO QHS RF: 0 cholecalciferol (vitamin D3) 50 MCG capsule 2,000 unit PO DAILY RF: 0 polysaccharide iron complex 150 MG capsule 150 mg PO DAILYCM Qty: 30 RF: 0 acetaminophen 500 MG tablet 1,000 mg PO Q6H PRN PRN (Reason: Pain Score 1-5) RF: 0 escitalopram oxalate 10 MG tablet 10 mg PO DAILY RF: 0 omega 0-fzk-imz-fish oil [Fish Oil] 1,200 (144-216) mg Capsule 1,200 cap PO DAILY RF: 0 hydrocortisone 10 mg tablet 20 mg PO BREAKFAST Qty: 180 RF: 1 hydrocortisone 10 mg tablet 10 mg PO DINNER Qty: 90 RF: 1 levothyroxine 112 mcg tablet 112 mcg PO DAILY Qty: 90 RF: 1 Discontinued losartan 25 MG tablet 25 mg PO DAILY RF: 0 Referrals / Follow Up: Gianluca Trevino MD [Primary Care Provider] - 01/13/22 3:20 pm () Disposition Disposition (needs filled in before D/C Order can be placed): Home Health Service Charges/Coding Visit Charges Inpatient E&M: 08552 Disch Hosp
== END 2022-01-12 17:04 | disposition home health service (06) | DRG 871 ==
LOC: ED 13:27 → ICU 14:03 → PCU 01-06 15:47
PROVIDERS: Internal Medicine Infectious Disease; Admitting Provider Internal Medicine; Emergency Provider Emergency Medicine; PCP Family Medicine; Visit Provider Internal Medicine
DX: A41.89 Other specified sepsis (principal); U07.1 COVID-19; J96.01 Acute respiratory failure with hypoxia; J12.82 Pneumonia due to coronavirus disease 2019; R65.21 Severe sepsis with septic shock; E27.49 Other adrenocortical insufficiency; G20 Parkinson's disease; N18.31 Chronic kidney disease, stage 3a; E87.6 Hypokalemia; I25.10 Atherosclerotic heart disease of native coronary artery without angina pectoris; E03.9 Hypothyroidism, unspecified; G47.30 Sleep apnea, unspecified; I12.9 Hypertensive chronic kidney disease with stage 1 through stage 4 chronic kidney disease, or unspecified chronic kidney disease; M19.90 Unspecified osteoarthritis, unspecified site; I25.2 Old myocardial infarction; Z79.82 Long term (current) use of aspirin; Z28.310 Unvaccinated for COVID-19; Z79.899 Other long term (current) drug therapy; Z79.890 Hormone replacement therapy; Z86.718 Personal history of other venous thrombosis and embolism; R32 Unspecified urinary incontinence
CPT/HCPCS: 36415; 36556; 36600; 51702; 71045; 80053; 81001; 82533; 82803; 82962; 83605; 83615; 83735; 83880; 84075; 84145; 84484; 85025; 85027; 85379; 85384; 85610; 85730; 86140; 87040; 87070; 87086; 87205; 87428; 87449; 87493; 87633; 87641; 93005; 94660; 97110; 97116; 97162; 97166; 97530; 97535; 97802; 97803; 99251; 99285; J7030; J7040; J7050; A4216; C1751; G0463; J0248; J0696; J2405; J3490

== ENCOUNTER → 2022-04-14 | Outpatient (CLI) | payer MEDICARE, SELFPAY ==
[2022-04-14 12:15] LABS: Absolute Lymphocyte Count 1.38 X10^3/uL (0.83-4.51); Basophil# 0.07 X10^3/uL; Basophil% 0.8 % (0-1); Eosinophil# 0.17 X10^3/uL; Hematocrit 40.3 % (40-54); Hemoglobin 12.9 g/dL (13.0-16.5); Lymphocyte # 1.38 X10^3/ul (0.83-4.51); Lymphocyte % 16.6 % (19-41); Mean Corpuscular Hgb 31.3 pg (27.0-32.0); Mean Corpuscular Volume 97.8 fL (80-94); Mean Platelet Vol. 10.2 fl (6.2-12.0); Monocyte# 0.64 X10^3/uL; Monocyte% 7.7 % (0-10); NRBC Flagged by Analyzer 0 % (0-5); Neutrophil # 6.01 X10^3/uL (2.7-7.7); Neutrophil % 72.3 % (47-70); Platelet Count 219 K/mm3 (150-450); RBC Distribution Width CV 13.7 % (11.6-14.6); RBC Distribution Width SD 49.4 fl (35.1-43.9); Red Blood Count 4.12 M/mm3 (4.6-6.2); White Blood Count 8.3 K/mm3 (4.4-11.0)
[2022-04-14 12:40] LABS: Anion Gap 5 (5-15); BUN 19 mg/dL (7-18); BUN/Creat Ratio 12.8 RATIO (10-20); Calcium,Total 9.6 mg/dL (8.5-10.1); Chloride 107 mmol/L (98-107); Creatinine, Serum 1.49 mg/dL (0.70-1.30); EST Glomerular Filtration Rate 48 mL/min (>60); Est Glom Filt Rate - Afr Amer 58 mL/min (>60); Ferritin 413 ng/mL (26-388); Free T3 1.9 pg/mL (2.18-3.98); Glucose 122 mg/dL (74-106); Iron 66 ug/dL (65-175); Potassium 3.8 mmol/L (3.5-5.1); Sodium Level 141 mmol/L (136-145); T4 Free Direct 0.73 ng/dL (0.76-1.46); Thyroid Stim Hormone (TSH) 0.47 uIU/mL (0.358-3.74)
== END | disposition home or self-care (01) ==
LOC: MFPLAB 10:29
PROVIDERS: PCP Family Medicine; Visit Provider Family Medicine
DX: N18.30 Chronic kidney disease, stage 3 unspecified (principal); E03.9 Hypothyroidism, unspecified; D64.9 Anemia, unspecified
CPT/HCPCS: 36415; 80048; 82728; 83540; 84439; 84443; 84481; 85025

== ENCOUNTER 2022-04-28 10:30 | Outpatient (RCR) | payer MEDICARE, SELFPAY ==
--- NOTE | 2022-03-02 09:28 | HP.PTEVAL ---
Patient's Visit Information KEN ALFRED is a 81 year old M referred to Physical Therapy by Dr. Gianluca Trevino MD with a diagnosis of PD, gait instability, debility. Date of Evaluation: 03/02/22 Physical Therapist: DALIA Briceño - Visit Plan Frequency: 2x /Week Duration: 2 Months Plan: 2X/ week for 8 weeks for functional strengthening, big movements, dual tasking, gait training (increased stride, upright posture), balance (Compliant and non compliant surfaces),. HEP: seated opp arm and leg - Subjective Pt is having trouble walking and keeping his balance. This started 2.5 years ago. He started to use the cane about 1.5 years ago. He was in a wheelchair for quite awhile. He had back surgery and he could not walk. Slowly he was able to start walking again. He had to have another back surgery and then had a gall bladder infection and may medical things. He had COVID, pneumonia and was in the hospital for a week. He just got run down again. He was in the hospital on January 04 for COVID. He was diagnosed with PD about 1.5 years ago. He wants to be able to walk without out losing his balance. He usually falls to the L. His L side does not work well compared to the R. He has a couple of steps at home with a railing. He has fallen at home about once a month. He does some exercises at home, squats, LAQ, marching, standing hip abd. He sometimes has trouble getting out of a chair and getting out of bed. He does tend to get his L foot caught up in the grass. - Objective Gait: Pt walks with a straight cane that is too high for him in the L hand. He walks with small steps but each foot clears each other but as he fatigues he does not advance his R leg as far and does not pass his L leg. He holds onto his with gait and has a flexed trunk. LE MMT: L hip flex, knee ext, knee flex 4-/5 and R hip flex, knee ext and knee flex 4/5. Stairs: Up and down recip with 2 hand rails with CGA. Tinetti: 16. FGA: 8. Sit to stand: able to get up using his arms on first attempt but he was more on his heels when he stood up and took him a second to get more of his weight shifted forward. Standing balance with EC... pt has increase sway and feeling like he would fall BW. Seated opp arm and leg )pt was able to get 2 in a row and then went back to same side arm and leg) - Balance/Special Test Scores Functional Gait Assessment Score: 8 % Disability: 73.3400 Tinetti Balance Score: 10 Tinetti Gait Score: 6 Tinetti Balance & Gait Score: 16 Lower Extremity Functional Score: 13 - Goals Goal 1:: I HEP Goal Time Frame: 6-8 Weeks Goal 2:: Be able to walk indep with bigger equal strides with R leg passing the L leg with increase fatigue with more upright posture. Goal Time Frame: 6-8 Weeks Goal 3:: Increase FGA by 5 points to decrease fall risk (score of 8 at time of eval). Goal Time Frame: 6-8 Weeks Goal 4:: Be able to sit to stand to full erect standing X 10 using arms in less than 30 seconds Goal Time Frame: 6-8 Weeks Goal 5:: Be able to complete X 5 standing opp arm and leg without messing up. Goal Time Frame: 6-8 Weeks - Rehabilitation Potential Rehabilitation Potential: Good - Anticipated Interventions Patient/Client Instruction: Educate patient on: Condition, Plan of Care For the Purpose of:: To improve nutrient delivery to tissue, To improve muscle performance and motor function, To improve ability to perform ADL's, To increase tolerance to activity/condition/position, To improve performance and independence with ADL's, To decrease level of supervision to perform tasks, To improve ability of physical actions for home/community/work/leisure, To improve gait and locomotor functions, To improve endurance, To improve balance, To improve safety with gait Therapeutic Exercise to Include: Strength training, Endurance training, Balance training, Coordination, Body mechanics, Postural training, Flexibilty training, Gait and locomotor training, Neuromotor development, Active ROM, Dynamic Lumbar Stabilization, Scapular Strength/Stabilization For the Purpose of:: To improve muscle performance and motor function, To improve ability to perform ADL's, To increase tolerance to activity/condition/position, To improve performance and independence with ADL's, To decrease level of supervision to perform tasks, To improve gait and locomotor functions, To improve health of tissue, To decrease soft tissue restriction, To improve endurance, To improve balance, To improve safety with gait Functional Training to Include: Gait training For the Purpose of:: To improve gait and locomotor functions, To improve balance, To improve safety with gait Thank you for the opportunity to evaluate your patient. For Medicare and Medicare HMO plans, please review the plan of care and approve it. It will need to be FAXED BACK to us at [phone] for Medicare purposes. For Medicare only, by signing this I certify the plan of care. Please let me know if there are questions or concerns regarding this plan of care. Physician Signature: Date:
--- NOTE | 2022-04-09 08:43 | HP.PTREVAL ---
Dr. Gianluca Trevino MD, It has been my pleasure to treat KEN ALFRED over the last 9 visits for PD, gait instability, debility. Please see the progress note below for an update on the physical therapy plan of care! Subjective: Pt feels that he has improved. He feels that his walking has improved, going up and down stairs. He has had no falls since the start of PT. Pt feels that he feels like a few more sessions would help him even more. Pt reports that he still has back pain and not sure if that is from the PD. Pt is doing HEP at the kitchen sink including some squats holding onto the counter. He feels that his endurance is still lower than it should be. He is now able to walk to the end of the driveway and back and he was not able to do that before without fatigue. Pt knows that he has to constantly stop and remind himself to stand up straight. Objective/Function: Gait: walks with a front wheeled walker with flexed trunk and small slow romelia. Pt is able to walk faster and longer strides if verbal cued. He is able to walk with CGA with much slower pace and step length with no heel to toe gait pattern without his walker... with occ step out. Pt struggles with walking backwards and backing up to the chair.. his trunk and head are more FW and buttocks BW than his feet and min A needed by therapist to prevent a fall backwards. Standing opp arm and leg (smaller ROM/step length) but able to complete X 10 in ROW. Sit to pet training instructor 30 seconds 9.5 times. FGA 11 Plan Plan: Put in for additional PT visits to work on more confidence with gait without the walker, Taking longer strides, walking BW, getting back into the chair. 2X/ week for 8 weeks for functional strengthening, big movements, dual tasking, gait training (increased stride, upright posture), balance (Compliant and non compliant surfaces). Balance/Gait/Functional tests - Balance/Special Test Scores Functional Gait Assessment Score: 11 % Disability: 63.3400 Tinetti Balance Score: 10 Tinetti Gait Score: 6 Tinetti Balance & Gait Score: 16 Lower Extremity Functional Score: 22 Goals Goal 1:: I HEP Goal Time Frame: 6-8 Weeks Goal Progress: Goal Met Goal 2:: Be able to walk indep with bigger equal strides with R leg passing the L leg with increase fatigue with more upright posture. Goal Time Frame: 6-8 Weeks Goal Progress: Progressing Goal 3:: Increase FGA by 3 points to decrease fall risk (score of 8 at time of eval and 13 at re-leora;). Goal Time Frame: 6-8 Weeks Goal Progress: 13 Goal 4:: Be able to sit to stand to full erect standing X 10 using arms in less than 30 seconds Goal Time Frame: 6-8 Weeks Goal Progress: X9.5 in 30 seconds progre Goal 5:: Be able to complete X 5 standing opp arm and leg without messing up. Goal Time Frame: 6-8 Weeks Goal Progress: X 10 goal met Goal 6:: Walk BW 25 feet with increase stride and no LOB Goal Time Frame: 2-4 Weeks Anticipated Interventions Patient/Client Instruction: Educate patient on: Condition, Plan of Care For the Purpose of:: To improve nutrient delivery to tissue, To improve muscle performance and motor function, To improve ability to perform ADL's, To increase tolerance to activity/condition/position, To improve performance and independence with ADL's, To decrease level of supervision to perform tasks, To improve ability of physical actions for home/community/work/leisure, To improve gait and locomotor functions, To improve endurance, To improve balance, To improve safety with gait Therapeutic Exercise to Include: Strength training, Endurance training, Balance training, Coordination, Body mechanics, Postural training, Flexibilty training, Gait and locomotor training, Neuromotor development, Active ROM, Dynamic Lumbar Stabilization, Scapular Strength/Stabilization For the Purpose of:: To improve muscle performance and motor function, To improve ability to perform ADL's, To increase tolerance to activity/condition/position, To improve performance and independence with ADL's, To decrease level of supervision to perform tasks, To improve gait and locomotor functions, To improve health of tissue, To decrease soft tissue restriction, To improve endurance, To improve balance, To improve safety with gait Functional Training to Include: Gait training For the Purpose of:: To improve gait and locomotor functions, To improve balance, To improve safety with gait Please do not hesitate to contact me at [phone] by phone or if you have questions or concerns regarding this new plan of care! Sincerely, Cierra Hollingsworth, MPT
--- NOTE | 2022-05-10 10:17 | HP.PTDCSUM ---
It has been my pleasure to treat KEN ALFRED referred by Dr. Gianluca Trevino MD, with the diagnosis of PD, gait instability, debility for a total of 13 visit(s). Discharge Date: 05/10/22 Please see the following information for a summary of their discharge status. Subjective: Pt thinks that he is improving. He feels that he is struggling with his walking and taking bigger steps. He feels that walking BW and backing up to a chair is still an issue. LBP Pain Intensity (Out of 10): Unrated % Improvement: 91 Objective/Function: Would like a few additional visits to work on balance (higher level such as walking BW and turning to get into a chair and walking with head turns). walking with head turns throws his balance off. Pt tends to not move his feet and they get tangled up when turning to back in the chair. Walking BW: pt has to have a hand on the counter or // bar with CGA. Pt needs verbal cues to take big steps and to keep heels apart as he likes to step on his opposite heel when walking BW. He also has some freezing where his feet wont go back and his trunk will. He is better than he was a few visits ago. FGA. 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 Feel pt is a fall risk especially when he is backing up to a chair, walking BW to turn around etc. Pt would benefit from a few additional visits to work on BW walking and transitioning to turning to back to a chair. Goal 1:: I HEP Goal Progress: Goal Met Goal 2:: Be able to walk indep with bigger equal strides with R leg passing the L leg with increase fatigue with more upright posture. Goal Progress: Progressing Goal 3:: Increase FGA by 3 points to decrease fall risk (score of 8 at time of eval and 13 at re-leora;). Goal Progress: 13 Goal 4:: Be able to sit to stand to full erect standing X 10 using arms in less than 30 seconds Goal Progress: X9.5 in 30 seconds progre Goal 5:: Be able to complete X 5 standing opp arm and leg without messing up. Goal Progress: X 10 goal met Goal 6:: Walk BW 25 feet with increase stride and no LOB Goal Progress: Progressing Plan: 05/10/22 PT additional visits were declined therefore we will DC to [facility]. Feel pt is a fall risk especially when he is backing up to a chair, walking BW to turn around etc. Pt would benefit from a few additional visits to work on BW walking and transitioning to turning to back to a chair. PT for functional strengthening, big movements, dual tasking, gait training (increased stride, upright posture), balance (Compliant and non compliant surfaces). Discharge Comments: DC PT to [facility] If there are questions or concerns regarding this patient's physical therapy, please feel free to call me at [phone]. Thank you for the referral of this patient. Sincerely, Cierra Hollingsworth, MPT Balance/Gait/Functional tests - Balance/Special Test Scores Functional Gait Assessment Score: 11 % Disability: 63.3400 Tinetti Balance Score: 10 Tinetti Gait Score: 6 Tinetti Balance & Gait Score: 16 Lower Extremity Functional Score: 13
== END 2022-04-28 19:00 | disposition home or self-care (01) ==
LOC: PT 10:30
PROVIDERS: PCP Family Medicine; Referring Provider Family Medicine; Visit Provider Family Medicine
DX: G20 Parkinson's disease (principal); R26.9 Unspecified abnormalities of gait and mobility; R53.83 Other fatigue
CPT/HCPCS: 97110; 97161; 97530

== ENCOUNTER → 2022-04-29 | Outpatient (CLI) | payer MEDICARE, SELFPAY ==
[2022-04-29 15:43] LABS: T4 Free Direct 0.87 ng/dL (0.76-1.46)
== END | disposition home or self-care (01) ==
LOC: MFPLAB 13:44
PROVIDERS: PCP Family Medicine; Referring Provider Family Medicine; Visit Provider Family Medicine
DX: E03.9 Hypothyroidism, unspecified (principal)
CPT/HCPCS: 36415; 84439; 84443; 84481

== ENCOUNTER → 2022-05-12 | Outpatient (CLI) | payer MEDICARE, SELFPAY ==
[2022-05-12 17:49] LABS: Basophil# 0.06 X10^3/uL; Basophil% 0.8 % (0-1); Eosinophil# 0.37 X10^3/uL; Eosinophils% 4.7 % (0-5); Hematocrit 39.8 % (40-54); Hemoglobin 13.1 g/dL (13.0-16.5); Mean Corp Hgb Conc 32.9 g/dL (32-36); Mean Corpuscular Hgb 31.3 pg (27.0-32.0); Mean Platelet Vol. 9.8 fl (6.2-12.0); Monocyte# 0.59 X10^3/uL; Monocyte% 7.5 % (0-10); NRBC Flagged by Analyzer 0 % (0-5); Neutrophil # 4.98 X10^3/uL (2.7-7.7); Neutrophil % 63.5 % (47-70); Platelet Count 211 K/mm3 (150-450); RBC Distribution Width CV 13.2 % (11.6-14.6); RBC Distribution Width SD 46.5 fl (35.1-43.9); Red Blood Count 4.19 M/mm3 (4.6-6.2); White Blood Count 7.8 K/mm3 (4.4-11.0)
[2022-05-12 18:06] LABS: AST(SGOT) 27 U/L (15-37); Alanine Aminotransfer ALT/SGPT 25 U/L (16-61); Albumin, Serum 3.6 g/dL (3.2-5.0); Alkaline Phosphatase 65 U/L (45-117); Anion Gap 9 (5-15); BUN 12 mg/dL (7-18); Calcium,Total 9.3 mg/dL (8.5-10.1); Chloride 104 mmol/L (98-107); EST Glomerular Filtration Rate 48 mL/min (>60); Est Glom Filt Rate - Afr Amer 58 mL/min (>60); Globulin 3.7 g/dL (2.2-4.2); Glucose 128 mg/dL (74-106); Potassium 3.8 mmol/L (3.5-5.1); Protein, Total 7.3 g/dL (6.4-8.2); Sodium Level 139 mmol/L (136-145)
== END | disposition home or self-care (01) ==
LOC: MFPLAB 17:01
PROVIDERS: PCP Family Medicine; Referring Provider Family Medicine; Visit Provider Family Medicine
DX: R53.1 Weakness (principal); R11.2 Nausea with vomiting, unspecified
CPT/HCPCS: 36415; 80053; 85025

== ENCOUNTER 2022-05-15 11:11 | Emergency (ER) | payer MEDICARE, SELFPAY ==
[2022-05-15 11:13] VITALS: BP 152/79; PULSE 72; RESP 18; TEMP 36.1; O2SAT 100; BMI 28.7
--- NOTE | 2022-05-15 11:56 | RAD_ITS ---
STUDY: X-RAY - LUMBAR SPINE REASON FOR EXAM: Male, 81 years old. LOW BACK PAIN, RECENT FALLS. LEG GIVES OUT TECHNIQUE: 2 view(s) of the lumbar spine were obtained. COMPARISON: X-ray the lumbar spine dated April 29, 2021 FINDINGS: Stable spinal rods and pedicle screws from T11 down to L3. Chronic compression deformity of the L1 vertebral body reidentified. No new compression deformity or acute fracture is present. Mild multilevel disc space narrowing and endplate spurring is present throughout the lumbar spine. Mild levoscoliosis is present. No demonstrated hardware complications or displacement or loosening. Normal lumbar lordosis. The soft tissue structures are unremarkable. RAD/Lumbar Spine 2 or 3 Views IMPRESSION: No acute fracture or significant interval change Electronically Signed: Markus Dangelo MD at 12:58 EDT ,
--- NOTE | 2022-05-15 12:03 | EDS_ITS ---
HPI History of Present Illness Chief Complaint: Fall Narrative Narrative: 9-year-old male with history of back pain presenting with a flareup of his back pain. He states is all in his lower back. He states that mechanical fall and fell onto his back . He did not hit his head or lose consciousness. He states he was able to get up under his own strength. He has been ambulatory with his cane. He does require assistance sometimes. He does not feel lightheaded or dizzy. He is not feeling generally weak. He states he has no loss of bladder or bowel control. No saddle anesthesia or paresthesia. [facility] Medical History Abnormal ultrasound of breast Acute cholecystitis Arthritis CAD in [place] artery Cholecystitis Fatigue History of DVT (deep vein thrombosis) History of heart attack History of pituitary tumor resection Left breast lump Low back problem Parkinson disease pituitary macroadenoma resection Postoperative abscess Preop cardiovascular exam Secondary adrenal insufficiency Secondary hypothyroidism Secondary male hypogonadism Home Medications atorvastatin 20 mg tablet 20 mg PO DAILY cholesterol 12/25/19 [History Last Taken 12/21/20] aspirin 81 mg tablet,delayed release 81 mg PO DAILY Heart health 01/16/20 [History Last Taken 12/22/20] tamsulosin 0.4 mg capsule 0.8 mg PO QHS Urine retention 01/16/20 [History Last Taken 12/21/20] carbidopa 25 mg-levodopa 100 mg tablet 1.5 tab PO TID Parkinson disease 07/24/20 [History Last Taken 12/22/20] cholecalciferol (vitamin D3) 50 mcg (2,000 unit) capsule 2,000 unit PO DAILY Supplement 09/08/20 [History Last Taken 12/22/20] acetaminophen 500 mg tablet 1,000 mg PO Q6H PRN PRN Pain Score 1-5 09/25/20 [Rx Last Taken Unknown] escitalopram oxalate 10 mg tablet 10 mg PO DAILY 09/25/20 [Rx Last Taken 12/22/20] polysaccharide iron complex 150 mg iron capsule 150 mg PO DAILYCM #30 caps 09/25/20 [Rx Last Taken 12/21/20] omega 6-huf-wsc-fish oil 1,200 mg (144 mg-216 mg) capsule (Fish Oil) 1,200 cap PO DAILY SUPPLEMENT 12/22/20 [History Last Taken 12/22/20] tolterodine 2 mg capsule,extended release 24 hr 2 cap PO DAILY 07/24/21 [History Last Taken Unknown] levothyroxine 112 mcg tablet 112 mcg PO DAILY #90 tabs 08/25/21 [Rx Last Taken Unknown] hydrocortisone 10 mg tablet See Rx Instructions PO .COMPLEX ADRENAL #270 tabs 05/12/22 [Rx Last Taken Unknown] lidocaine 5 % topical patch (Lidoderm) 1 patch topical DAILY PRN pain #15 ea 05/15/22 [Rx Last Taken Unknown] Allergy/AdvReac Type Severity Reaction Status Date / Time No Known Allergies Allergy Verified 05/15/22 11:13 Family History Mother Skin cancer Cancer Skin and other unknown Sister Cancer Unknown type Surgical History History of back surgery History of cholecystectomy (~12/2019) Hx of colonoscopy Hx of elbow surgery Hx of heart artery stent Hx of left breast biopsy Social History Smoking Status: Never smoker second hand exposure: No alcohol intake: current alcohol intake frequency: holidays/special occasions only substance use type: does not use caffeine: Yes what type of physical activity do you participate in: none frequency: does not exercise EXAM Physical Exam Const Vital Signs: 05/15/22 11:13 05/15/22 11:34 05/15/22 15:06 Temperature 97 F L Temperature Source Temporal Pulse Rate 72 Respiratory Rate 18 16 Respiratory Effort Normal Respiratory Depth Normal Respiratory Pattern Normal Blood Pressure 152/79 H Blood Pressure Mean 103 Pulse Ox 100 Oxygen Delivery Method Room Air Room Air Room Air Positive well nourished General Appearance ED: NAD HEENT Reports moist mucous membranes Eyes PERRL and EOMs intact bilaterally Resp normal respiratory effort Auscultation: Negative for rales, rhonchi or wheezes Cardio regular rate and regular rhythm GI normal to inspection, nondistended, normoactive bowel sounds Back/Spine Back/Spine Narrative: Generalized tenderness to palpation of the lumbar spine and paraspinal musculature. No obvious deformity or step-off. Patient able to sit up in the bed from a supine position under his own strength without difficulty Extremity normal to inspection Neuro oriented x3 and no sensory deficits noted Sensorium / Orientation: alert Motor Exam: strength 5/5 throughout Psych mental status grossly normal Skin no rashes or lesions noted MDM MDM MDM Narrative Medical decision making narrative: Patient does state that Tylenol has been taking has been helping with his pain. He is able to sit up and move around in the bed without much difficulty. I will obtain x-rays of the lumbar spine and he is given a Lidoderm patch. X-rays of lumbar spine and my interpretation shows no acute fractures. Patient doing well with Lidoderm patch. Patient is to continue Tylenol and I will prescribe Lidoderm patches. He is alternate ice and heat. Patient will follow-up with his PCP. Impression: 1. Mechanical fall 2. Back contusion Lab Data Attestation: I reviewed the patient's lab results. Radiography Diagnostic Testing: Clinical Impression(s) from Imaging Studies Lumbar Spine X-Ray 05/15/22 11:56 IMPRESSION: No acute fracture or significant interval change Electronically Signed: Markus Dangelo MD at 12:58 EDT Reading Location ID and State: [facility] / [place] , Service support , Discharge Plan Triage Chief Complaint: Fall Other Complaint: Abd Pain ED Provider: Kaiden Wiggins Dx/Rx/DC Orders Prescriptions: New lidocaine [Lidoderm] 5 % adhesive patch,medicated 1 patch topical DAILY PRN (Reason: pain) Qty: 15 0RF Rx Instructions: leave on most painful area for up to 12 hrs No Action carbidopa-levodopa 25-100 mg tablet 1.5 tab PO TID Label Comments: TAKE 1 TABLET BY MOUTH THREE TIMES A DAY tolterodine 2 mg capsule,extended release 24hr 2 cap PO DAILY atorvastatin 20 MG tablet 20 mg PO DAILY aspirin 81 MG tablet,delayed release (DR/EC) 81 mg PO DAILY tamsulosin 0.4 MG capsule 0.8 mg PO QHS cholecalciferol (vitamin D3) 50 MCG capsule 2,000 unit PO DAILY polysaccharide iron complex 150 MG capsule 150 mg PO DAILYCM Qty: 30 0RF acetaminophen 500 MG tablet 1,000 mg PO Q6H PRN PRN (Reason: Pain Score 1-5) 0RF escitalopram oxalate 10 MG tablet 10 mg PO DAILY 0RF omega 0-swj-slw-fish oil [Fish Oil] 1,200 (144-216) mg Capsule 1,200 cap PO DAILY levothyroxine 112 mcg tablet 112 mcg PO DAILY Qty: 90 1RF hydrocortisone 10 mg tablet See Rx Instructions PO .COMPLEX Qty: 270 0RF Rx Instructions: 2 tab with breakfast, 1 tab with dinner orally; Primary Care Provider: Gianluca Trevino Referrals: Gianluca Trevino MD [Primary Care Provider] - Disposition Disposition: Home, Self Care
[2022-05-15] MEDS: Lidocaine 5% Patch 1 PATCH TOPICAL (12:05)
[2022-05-15 15:06] VITALS: RESP 16
[2022-05-15 15:22] VITALS: BP 151/80; RESP 19; O2SAT 95
== END 2022-05-15 15:25 | disposition home or self-care (01) ==
PROVIDERS: Emergency Provider Student in an Organized Health Care Education/Training Program; PCP Family Medicine; Visit Provider Student in an Organized Health Care Education/Training Program
DX: S20.229A Contusion of unspecified back wall of thorax, initial encounter (principal); I25.10 Atherosclerotic heart disease of native coronary artery without angina pectoris; Z86.718 Personal history of other venous thrombosis and embolism; W19.XXXA Unspecified fall, initial encounter
CPT/HCPCS: 72100; 99283

== ENCOUNTER → 2022-05-20 | Outpatient (CLI) | payer MEDICARE, SELFPAY ==
--- NOTE | 2022-05-20 09:41 | US_ITS ---
STUDY: ABDOMINAL ULTRASOUND - RIGHT UPPER QUADRANT REASON FOR VISIT: Male, 81 years old elevated bilirubin TECHNIQUE: Ultrasound evaluation of the right upper quadrant was performed with real-time and static olivas-scale imaging. TECHNICAL QUALITY: Adequate. COMPARISON: Comparison is made with prior study of 12/22/2019. FINDINGS: Liver: The liver measures 15 cm. There is a heterogeneous echogenicity of the liver. The bile ducts are within normal limits. There is hepatic color flow. The direction of portal flow is hepatopetal. There is no demonstrated mass lesion. Gallbladder: The patient is status post cholecystectomy. Common Bile Duct (C.B.D.): The common bile duct measures 4.1 mm. Pancreas: Normal size of the head, body and tail of the pancreas. There is increased echogenicity of the pancreas. There is no demonstrated pancreatic mass or cyst. Right Kidney: Normal size of the right kidney. The right kidney measures 10.3 cm x 5.5 cm x 5.1 cm. Normal renal cortex. The right cortex measures 1.2 cm. There is no demonstrated renal mass or cyst. There is no right hydronephrosis. US/Abdomen Limited IMPRESSION: Heterogeneous echotexture of the liver parenchyma. No focal lesion is seen. Electronically Signed: Luis Fontaine MD at 14:43 EDT ,
[2022-05-20 12:09] LABS: Anion Gap 6 (5-15); BUN 19 mg/dL (7-18); Calcium,Total 9.3 mg/dL (8.5-10.1); Chloride 106 mmol/L (98-107); Creatinine, Serum 1.46 mg/dL (0.70-1.30); EST Glomerular Filtration Rate 49 mL/min (>60); Est Glom Filt Rate - Afr Amer 60 mL/min (>60); Glucose 101 mg/dL (74-106); Potassium 3.8 mmol/L (3.5-5.1); Sodium Level 140 mmol/L (136-145)
== END | disposition home or self-care (01) ==
PROVIDERS: PCP Family Medicine; Referring Provider Family Medicine; Visit Provider Family Medicine
DX: N18.30 Chronic kidney disease, stage 3 unspecified (principal); E03.9 Hypothyroidism, unspecified; R17 Unspecified jaundice
CPT/HCPCS: 36415; 76705; 80048; 84481

== ENCOUNTER → 2022-05-28 | Outpatient (CLI) | payer MEDICARE, SELFPAY ==
[2022-05-28 12:45] LABS: Color, Urine Yellow (Yellow); Glucose, Dipstick Normal (Normal); Ketone-Dipstick Negative (Negative); Leukocyte Esterase-Dipstick Negative /ul (Negative); Nitrite-Dipstick Negative (Negative); Occult Blood-Urine Negative /ul (Negative); Protein-Dipstick Negative (Negative); Urine Bilirubin Dipstick Negative (Negative); Urine Clarity Clear (Clear); Urine Urobilinogen 4 mg/dl (Normal); Urine pH 6.5 (5.0 - 8.0)
[2022-05-28 13:11] LABS: AST(SGOT) 25 U/L (15-37); Alanine Aminotransfer ALT/SGPT 16 U/L (16-61); Albumin, Serum 3.5 g/dL (3.2-5.0); Alkaline Phosphatase 212 U/L (45-117); Bilirubin, Direct 0.14 mg/dL (0.00-0.30); Globulin 3.7 g/dL (2.2-4.2); Protein, Total 7.2 g/dL (6.4-8.2)
== END | disposition home or self-care (01) ==
LOC: MFPLAB 09:53
PROVIDERS: PCP Family Medicine; Referring Provider Family Medicine; Visit Provider Family Medicine
DX: R17 Unspecified jaundice (principal)
CPT/HCPCS: 36415; 80076; 81002

== ENCOUNTER → 2022-06-08 | Outpatient (CLI) | payer MEDICARE, SELFPAY ==
[2022-06-08 18:21] LABS: Free T3 1.8 pg/mL (2.18-3.98); T4 Free Direct 1.01 ng/dL (0.76-1.46)
[2022-06-11 11:18] LABS: Thyroid Stim Hormone (TSH) 0.16 uIU/mL (0.358-3.74)
== END | disposition home or self-care (01) ==
LOC: MFPLAB 16:05
PROVIDERS: PCP Family Medicine; Referring Provider Family Medicine; Visit Provider Internal Medicine Endocrinology, Diabetes & Metabolism
DX: D35.2 Benign neoplasm of pituitary gland (principal); E03.8 Other specified hypothyroidism
CPT/HCPCS: 36415; 84439; 84443; 84481

== ENCOUNTER → 2022-11-03 | Outpatient (CLI) | payer MEDICARE, SELFPAY ==
[2022-11-03 15:39] LABS: Hematocrit 40.8 % (40-54); Hemoglobin 13.2 g/dL (13.0-16.5); Mean Corp Hgb Conc 32.4 g/dL (32-36); Mean Corpuscular Hgb 31.4 pg (27.0-32.0); Mean Corpuscular Volume 97.1 fL (80-94); Mean Platelet Vol. 10.2 fl (6.2-12.0); Platelet Count 237 K/mm3 (150-450); RBC Distribution Width CV 13.2 % (11.6-14.6)
[2022-11-03 16:23] LABS: ALB/GLOB Ratio 1.1 RATIO (0.9-2.4); AST(SGOT) 28 U/L (15-37); Alanine Aminotransfer ALT/SGPT 17 U/L (16-61); Albumin, Serum 3.7 g/dL (3.2-5.0); Alkaline Phosphatase 53 U/L (45-117); Anion Gap 8 (5-15); BUN 28 mg/dL (7-18); BUN/Creat Ratio 20.1 RATIO (10-20); Calcium,Total 9.2 mg/dL (8.5-10.1); Chloride 108 mmol/L (98-107); Cholesterol 152 mg/dL (200); Creatinine, Serum 1.39 mg/dL (0.70-1.30); EST Glomerular Filtration Rate 52 mL/min (>60); Est Glom Filt Rate - Afr Amer 63 mL/min (>60); Globulin 3.3 g/dL (2.2-4.2); Glucose 102 mg/dL (74-106); High Density Lipoprotein 45 mg/dL; Potassium 4.1 mmol/L (3.5-5.1); Sodium Level 142 mmol/L (136-145); T4 Free Direct 0.85 ng/dL (0.76-1.46); Thyroid Stim Hormone (TSH) 0.28 uIU/mL (0.358-3.74); Triglycerides 169 mg/dL; Very Low Density Lipoprotein 34 mg/dL (5-40)
== END | disposition home or self-care (01) ==
LOC: MFPLAB 11:01
PROVIDERS: PCP Family Medicine; Referring Provider Family Medicine; Visit Provider Family Medicine
DX: E03.9 Hypothyroidism, unspecified (principal); N18.30 Chronic kidney disease, stage 3 unspecified; E78.5 Hyperlipidemia, unspecified
CPT/HCPCS: 36415; 80053; 80061; 82306; 84439; 84443; 85027

== ENCOUNTER 2023-01-31 14:23 | Emergency (ER) | payer MEDICARE, SELFPAY ==
[2023-01-31] VITALS (9 sets, daily range): BP systolic 73–153; BP diastolic 46–104; PULSE 67–93; RESP 15–24; TEMP 36.2–36.7; O2SAT 98–100; BMI 25.7
--- NOTE | 2023-01-31 15:32 | CT_ITS ---
STUDY: CT BRAIN WITHOUT CONTRAST REASON FOR EXAM: Male, 82 years old. trauma RADIATION DOSAGE (If Supplied By Facility): CTDIvol = ( 44.99 ) mGy, DLP = ( 779.24 ) mGycm TECHNIQUE: Transaxial CT imaging of the brain was performed without administration of intravenous contrast material. Individualized dose optimization techniques were used for this CT. COMPARISON: February 24, 2021 FINDINGS: Normal soft tissue structures. Normal calvarium. 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 Partial empty sella deformity. Moderate atrophy and periventricular white matter ischemic changes.. Normal basal ganglia and thalami. Normal brainstem. Normal cerebellum. There is no intracranial hemorrhage. There are no findings of an acute ischemic infarction. Normal visualized paranasal sinuses. CT/Brain/Head without Contrast IMPRESSION: Moderate atrophy and periventricular white matter ischemic changes. No evidence for acute intracranial hemorrhage Electronically Signed: Martín Jonas MD at 17:45 EDT ,
--- NOTE | 2023-01-31 15:34 | EX.ED.DYSGE1 ---
HPI History of Present Illness Chief Complaint: General Illness Informant: patient and family Narrative Narrative: Patient presents with generalized weakness. Patient states that he did have a fall 2 weeks ago. He was sitting in the kitchen just leaned too far he thinks and he fell. He hit the right side of his head. He was not seen or evaluated for this. But since approximately that 2-week ago time. He has had generalized malaise. He states he can have aches all over. He has been coughing more and different than normal but no sputum production and is not actually short of breath. No urinary symptoms. No rashes. He states his generalized weakness is gotten a lot worse and just the last 2 or 3 days. He has not fallen again but he feels very weak and moving around his house. He does live independently although he has family nearby that checks on him. Only blood thinner is baby aspirin. He has history of heart disease. He for stated he is not having chest pain but then stated he did have some chest pain last night. He has history of back pains but states that this with generalized weakness and achiness is not his back problems. He denies having fever to me. 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 Home Medications atorvastatin 20 mg tablet 20 mg PO DAILY cholesterol 12/25/19 [History Last Taken 12/21/20] aspirin 81 mg tablet,delayed release 81 mg PO DAILY Heart health 01/16/20 [History Last Taken 12/22/20] carbidopa 25 mg-levodopa 100 mg tablet 1.5 tab PO TID Parkinson disease 07/24/20 [History Last Taken 12/22/20] cholecalciferol (vitamin D3) 50 mcg (2,000 unit) capsule 2,000 unit PO DAILY Supplement 09/08/20 [History Last Taken 12/22/20] acetaminophen 500 mg tablet 1,000 mg PO Q6H PRN PRN Pain Score 1-5 09/25/20 [Rx Last Taken Unknown] escitalopram oxalate 10 mg tablet 10 mg PO DAILY 09/25/20 [Rx Last Taken 12/22/20] polysaccharide iron complex 150 mg iron capsule 150 mg PO DAILYCM #30 caps 09/25/20 [Rx Last Taken 12/21/20] omega 3-nkz-ksi-fish oil 1,200 mg (144 mg-216 mg) capsule (Fish Oil) 1,200 cap PO DAILY SUPPLEMENT 12/22/20 [History Last Taken 12/22/20] levothyroxine 125 mcg tablet 125 mcg PO 06/08/22 [History Last Taken Unknown] tolterodine 4 mg capsule,extended release 24 hr 4 mg PO 06/08/22 [History Last Taken Unknown] hydrocortisone 10 mg tablet See Rx Instructions PO .COMPLEX ADRENAL #270 tabs 11/18/22 [Rx Last Taken Unknown] Allergy/AdvReac Type Severity Reaction Status Date / Time No Known Allergies Allergy Verified 01/31/23 14:28 Family History Mother Skin cancer Cancer Skin and other unknown Sister Cancer Unknown type Surgical History History of back surgery History of cholecystectomy (~12/2019) Hx of colonoscopy Hx of elbow surgery Hx of heart artery stent Hx of left breast biopsy Social History Smoking Status: Never smoker second hand exposure: No alcohol intake: current alcohol intake frequency: holidays/special occasions only substance use type: does not use caffeine: Yes what type of physical activity do you participate in: none frequency: does not exercise ROS ROS ED ROS Narrative A complete review of systems was performed and is negative except as documented in the history of present illness. Some specific details below. Constitutional: No recent fevers or chills. He does have significant generalized malaise and diffuse myalgias. EYE: No discharge, visual complaints, or pain. Did have an abrasion near his right eye but complains of no visual complaint. ENT: No difficulty swallowing. No swelling. No pain. No reflux symptoms. He is able to eat and drink but his appetite is down. CV: 1 episode of chest discomfort last night but he is not sure if that was just part of his generalized achiness. Respiratory: See history of present illness. He has been coughing more but is not short of breath and has not had sputum production. GI: No abdominal pain. No nausea vomiting diarrhea. No blood in stool. : No frequency dysuria or hematuria. Musculoskeletal: No recent trauma after his fall 2 weeks ago. He does have diffuse myalgias. No areas of swelling. Skin: No rash. Nondiaphoretic. Neuro: No focal weakness or numbness. Endocrine: No polyuria or polydipsia. EXAM Physical Exam Narrative Exam Narrative: CONSTITUTIONAL: Patient is nontoxic in appearance. The patient looks comfortable. Work of breathing looks normal. But the patient does look tired. HEENT: He has some healing contusion abrasions to the right side of the tenriism. Mucous membranes somewhat dry. No sinus tenderness. No indication of pain with swallowing. EYES: No conjunctival injection. No proptosis. Question if there may be a small amount of icterus. NECK:No JVD. No stridor. CARDIOVASCULAR: Regular rate. Regular rhythm. No notable murmur. No JVD. RESPIRATORY: No respiratory distress. Breathing is unlabored. No wheezes. No rhonchi. No rales. No pain with a deep breath. No chest wall tenderness. Saturations are normal at 100% on room air showing no hypoxia at rest. GASTROINTESTINAL: Not distended. Bowel sounds are normal. No tenderness. No guarding. No rebound. No palpable mass. No bruit is heard. GENITOURINARY: No tenderness over the bladder. No CVA tenderness. MUSCULOSKELETAL: Atraumatic. No peripheral edema. No cord. No tenderness along the deep venous system. No asymmetry. No distended veins. Well-healed posterior lumbar scar. NEUROLOGICAL: Patient is alert and appropriate. No focal deficit noted. SKIN: No noted rashes. No diaphoresis. PSYCHIATRIC: Patient is calm. Mood is appropriate. Const Vital Signs: 01/31/23 14:25 01/31/23 15:39 01/31/23 16:28 Temperature 97.2 F L Temperature Source Temporal Pulse Rate 80 Pulse Rate [Lying] Pulse Rate [Sitting (for 1 minute prior to obtaining)] 78 Pulse Rate [Standing (for 1 minute prior to obtaining)] 78 Respiratory Rate 16 Respiratory Pattern Normal Blood Pressure 111/67 Blood Pressure [Lying] 139/87 H Blood Pressure [Sitting (for 1 minute prior to obtaining)] 102/70 Blood Pressure [Standing (for 1 minute prior to obtaining)] 73/46 L Blood Pressure Mean 81 Blood Pressure Mean [Lying] 104 Blood Pressure Mean [Sitting (for 1 minute prior to obtaining)] 80 Blood Pressure Mean [Standing (for 1 minute prior to obtaining)] 55 Pulse Ox 100 Oxygen Delivery Method Room Air 01/31/23 17:05 01/31/23 18:36 01/31/23 17:30 Temperature 98.1 F Temperature Source Oral Pulse Rate 73 67 Pulse Rate [Lying] 93 Pulse Rate [Sitting (for 1 minute prior to obtaining)] 78 Pulse Rate [Standing (for 1 minute prior to obtaining)] 77 Respiratory Rate 18 17 Respiratory Pattern Blood Pressure 108/71 120/68 Blood Pressure [Lying] 103/65 Blood Pressure [Sitting (for 1 minute prior to obtaining)] 116/79 Blood Pressure [Standing (for 1 minute prior to obtaining)] 153/75 H Blood Pressure Mean 83 85 Blood Pressure Mean [Lying] 77 Blood Pressure Mean [Sitting (for 1 minute prior to obtaining)] 91 Blood Pressure Mean [Standing (for 1 minute prior to obtaining)] 101 Pulse Ox Oxygen Delivery Method 01/31/23 18:30 01/31/23 19:00 01/31/23 19:30 Temperature Temperature Source Pulse Rate 83 74 75 Pulse Rate [Lying] Pulse Rate [Sitting (for 1 minute prior to obtaining)] Pulse Rate [Standing (for 1 minute prior to obtaining)] Respiratory Rate 24 H 21 H 15 Respiratory Pattern Blood Pressure 131/104 H 124/79 H 118/74 Blood Pressure [Lying] Blood Pressure [Sitting (for 1 minute prior to obtaining)] Blood Pressure [Standing (for 1 minute prior to obtaining)] Blood Pressure Mean 109 95 87 Blood Pressure Mean [Lying] Blood Pressure Mean [Sitting (for 1 minute prior to obtaining)] Blood Pressure Mean [Standing (for 1 minute prior to obtaining)] Pulse Ox Oxygen Delivery Method MDM MDM MDM Narrative Medical decision making narrative: Patient CBC shows no acute process. Patient's electrolytes showed elevation of BUN and creatinine consistent with some dehydration and mild kidney injury. function test showed no acute process. Patient's troponin is negative. Patient's urinalysis is clean. My independent her potation the patient's chest x-ray shows no acute process or infiltrate despite his cough. Patient's CT scan of the head read by me shows no acute process and final reading is similar he does have chronic changes though. Patient's first set of orthostatic blood pressure was positive. Although he did not get lightheaded his blood pressure did drop a fair amount. He was given IV fluids here. Evidently per family he does not drink enough fluids. His labs show some dehydration. He feels markedly better afterwards. His blood pressure is much better when standing. He is walked around here. He wants to go home and feels safe. His family feels safe with him home to. I think this is reasonable. Lab Data Attestation: I reviewed the patient's lab results. Labs: Laboratory Results - last 24 hr 01/31/23 01/31/23 01/31/23 16:00 16:00 16:20 WBC 8.6 RBC 4.60 Hgb 14.1 Hct 43.4 MCV 94.3 H MCH 30.7 MCHC 32.5 RDW Std Deviation 44.6 H RDW Coeff of Delisa 13.0 Plt Count 230 MPV 10.0 Immature Gran % (Auto) 0.700 Neut % (Auto) 63.7 Lymph % (Auto) 23.1 [place] % (Auto) 8.3 Eos % (Auto) 3.4 Baso % (Auto) 0.8 Absolute Neuts (auto) 5.5 Absolute Lymphs (auto) 1.99 Nucleated RBC % 0 Sodium 135 L Potassium 3.9 Chloride 104 Carbon Dioxide 22.0 Anion Gap 9 BUN 23 H Creatinine 1.72 H Estim Creat Clear Calc 34.78 Est GFR (MDRD) Af Amer 49 L Est GFR (MDRD) Non-Af 41 L BUN/Creatinine Ratio 13.4 Glucose 111 H Calcium 9.5 Total Bilirubin 1.20 H AST 20 ALT 28 Alkaline Phosphatase 74 Troponin I High Sens 12 Total Protein 7.7 Albumin 3.7 Globulin 4.0 Albumin/Globulin Ratio 0.9 Urine Color Yellow Urine Clarity Clear Urine pH 6.0 Ur Specific [place] 1.015 Urine Protein 30 H Urine Glucose (UA) Normal Urine Ketones 15 H Urine Occult Blood Negative Urine Nitrite Negative Urine Bilirubin Negative Urine Urobilinogen Normal Ur Leukocyte Esterase Negative Urine RBC 0 SEEN Urine WBC 0 SEEN Ur Squamous Epith Cells 0-5 SEEN Urine Bacteria 0 SEEN Urine Mucus 0 SEEN Radiography Diagnostic Testing: Clinical Impression(s) from Imaging Studies Brain CT 01/31/23 15:32 IMPRESSION: Moderate atrophy and periventricular white matter ischemic changes. No evidence for acute intracranial hemorrhage Electronically Signed: Martín Jonas MD at 17:45 EDT , Chest X-Ray 01/31/23 16:30 IMPRESSION: No acute cardiopulmonary pathology Electronically Signed: Martín Jonas MD at 17:03 EDT , EKG Initial EKG: Comments: My independent interpretation of the patient's EKG done for generalized weakness and history of heart disease shows a normal sinus rhythm with overall rate of 71. There is some baseline artifact that may be due to mild tremor of Parkinson's but this does not look like atrial flutter. There is some diffuse nonspecific ST and T wave changes but these are similar to 04 January of this year. CO interval is long showing slight first-degree AV block. QRS duration and QTc are normal. Discharge Plan Triage Chief Complaint: General Illness ED Provider: Flip Perez Dx/Rx/DC Orders Clinical Impression: Dehydration, Generalized weakness, Cough Instructions: Dehydration Prescriptions: No Action carbidopa-levodopa 25-100 mg tablet 1.5 tab PO TID Label Comments: TAKE 1 TABLET BY MOUTH THREE TIMES A DAY levothyroxine 125 mcg tablet 125 mcg PO tolterodine 4 mg capsule,extended release 24hr 4 mg PO Label Comments: TAKE 1 CAPSULE BY MOUTH AT BEDTIME atorvastatin 20 MG tablet 20 mg PO DAILY aspirin 81 MG tablet,delayed release (DR/EC) 81 mg PO DAILY cholecalciferol (vitamin D3) 50 MCG capsule 2,000 unit PO DAILY polysaccharide iron complex 150 MG capsule 150 mg PO DAILYCM Qty: 30 0RF acetaminophen 500 MG tablet 1,000 mg PO Q6H PRN PRN (Reason: Pain Score 1-5) 0RF escitalopram oxalate 10 MG tablet 10 mg PO DAILY 0RF omega 6-rsc-bkb-fish oil [Fish Oil] 1,200 (144-216) mg Capsule 1,200 cap PO DAILY hydrocortisone 10 mg tablet See Rx Instructions PO .COMPLEX Qty: 270 8RF Rx Instructions: 2 tab with breakfast, 1 tab with dinner orally; Primary Care Provider: Gianluca Trevino Referrals: Gianluca Trevino MD [Primary Care Provider] - 3-5 Days if not improving Disposition Disposition: Home, Self Care
[2023-01-31 16:12] LABS: Absolute Lymphocyte Count 1.99 X10^3/uL (0.83-4.51); Absolute Neutrophil Count 5.5 X10^3/uL (2.0-7.7); Basophil# 0.07 X10^3/uL; Basophil% 0.8 % (0-1); Eosinophil# 0.29 X10^3/uL; Eosinophils% 3.4 % (0-5); Hematocrit 43.4 % (40-54); Hemoglobin 14.1 g/dL (13.0-16.5); Lymphocyte # 1.99 X10^3/ul (0.83-4.51); Lymphocyte % 23.1 % (19-41); Mean Corp Hgb Conc 32.5 g/dL (32-36); Mean Corpuscular Hgb 30.7 pg (27.0-32.0); Mean Corpuscular Volume 94.3 fL (80-94); Monocyte# 0.72 X10^3/uL; Monocyte% 8.3 % (0-10); NRBC Flagged by Analyzer 0 % (0-5); Neutrophil % 63.7 % (47-70); POSITIVE COUNT YES; Platelet Count 230 K/mm3 (150-450); RBC Distribution Width SD 44.6 fl (35.1-43.9); White Blood Count 8.6 K/mm3 (4.4-11.0)
[2023-01-31 16:24] LABS: Bacteria 0 SEEN /hpf (None Seen); Mucous, Urine 0 SEEN /hpf (<or=2+); Red Blood Cells-Urine 0 SEEN /hpf (0-5); White Blood Cells 0 SEEN /hpf (0-5)
[2023-01-31 16:28] LABS: ALB/GLOB Ratio 0.9 RATIO (0.9-2.4); AST(SGOT) 20 U/L (15-37); Alanine Aminotransfer ALT/SGPT 28 U/L (16-61); Albumin, Serum 3.7 g/dL (3.2-5.0); Alkaline Phosphatase 74 U/L (45-117); Anion Gap 9 (5-15); BUN 23 mg/dL (7-18); BUN/Creat Ratio 13.4 RATIO (10-20); Calcium,Total 9.5 mg/dL (8.5-10.1); Chloride 104 mmol/L (98-107); Creatinine, Serum 1.72 mg/dL (0.70-1.30); EST Glomerular Filtration Rate 41 mL/min (>60); Est Glom Filt Rate - Afr Amer 49 mL/min (>60); Estimated Creatinine Clearance 34.78 ml/min; Glucose 111 mg/dL (74-106); Potassium 3.9 mmol/L (3.5-5.1); Protein, Total 7.7 g/dL (6.4-8.2); Sodium Level 135 mmol/L (136-145); Troponin-I HS 12 pg/mL (3.0-78.0)
[2023-01-31 16:29] LABS: Color, Urine Yellow (Yellow); Glucose, Dipstick Normal (Normal); Ketone-Dipstick 15 mg/dl (Negative); Leukocyte Esterase-Dipstick Negative /ul (Negative); Nitrite-Dipstick Negative (Negative); Occult Blood-Urine Negative /ul (Negative); Protein-Dipstick 30 mg/dl (Negative); Specific Gravity, Urine 1.015 (1.002-1.030); Urine Bilirubin Dipstick Negative (Negative); Urine Clarity Clear (Clear); Urine Urobilinogen Normal (Normal)
--- NOTE | 2023-01-31 16:30 | RAD_ITS ---
STUDY: X-RAY CHEST REASON FOR EXAM: Male, 82 years old. cough TECHNIQUE: AP portable COMPARISON: January 04, 2022. FINDINGS: The lungs are clear and expanded. There is no demonstrated pleural abnormality. Normal size heart. Normal mediastinum and rd. Normal visualized pulmonary arteries. Mildly calcified aortic arch and descending thoracic aorta. Status post multilevel posterior fusion of the lower thoracic spine. Normal visualized clavicles and ribs. Degenerative changes of the shoulder joints. There is no demonstrated abnormality of the visualized soft tissue structures of the upper abdomen. RAD/Chest 1 View (Portable) IMPRESSION: No acute cardiopulmonary pathology Electronically Signed: Martín Jonas MD at 17:03 EDT ,
[2023-01-31 16:41] LABS: Squamous Epithelial Cells - UA 0-5 SEEN /hpf (0-5)
[2023-01-31] MEDS: 0.9% Normal Saline 1,000 ML 999 ML IV (17:06)
== END 2023-01-31 20:45 | disposition home or self-care (01) ==
PROVIDERS: Emergency Provider Emergency Medicine; PCP Family Medicine; Visit Provider Emergency Medicine
DX: E86.0 Dehydration (principal); R53.1 Weakness; R05.9 Cough, unspecified; I25.2 Old myocardial infarction; Z86.718 Personal history of other venous thrombosis and embolism; Z95.5 Presence of coronary angioplasty implant and graft
CPT/HCPCS: 70450; 71045; 80053; 81001; 84484; 85025; 87428; 93005; 96360; 99284; J7030; J7040; A4216

== ENCOUNTER 2023-05-05 12:15 | Inpatient (IN) | payer MEDICARE, SELFPAY ==
[2023-05-05] VITALS (26 sets, daily range): BP systolic 62–156; BP diastolic 44–82; PULSE 61–90; RESP 15–28; TEMP 31.2–36.2; O2SAT 93–100; BMI 25.2; BMI 24.9
--- NOTE | 2023-05-05 12:28 | EDS_ITS ---
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 Home Medications atorvastatin 20 mg tablet 20 mg PO DAILY cholesterol 12/25/19 [History Last Taken 12/21/20] aspirin 81 mg tablet,delayed release 81 mg PO DAILY Heart health 01/16/20 [History Last Taken 12/22/20] carbidopa 25 mg-levodopa 100 mg tablet 1.5 tab PO TID Parkinson disease 07/24/20 [History Last Taken 12/22/20] cholecalciferol (vitamin D3) 50 mcg (2,000 unit) capsule 2,000 unit PO DAILY Supplement 09/08/20 [History Last Taken 12/22/20] acetaminophen 500 mg tablet 1,000 mg (2 x 500 mg) PO Q6H PRN PRN Pain Score 1-5 09/25/20 [Rx Last Taken Unknown] escitalopram oxalate 10 mg tablet 10 mg PO DAILY 09/25/20 [Rx Last Taken 12/22/20] polysaccharide iron complex 150 mg iron capsule 150 mg PO DAILYCM #30 caps 09/25/20 [Rx Last Taken 12/21/20] omega [id number]-fish oil 1,200 mg (144 mg-216 mg) capsule (Fish Oil) 1,200 cap PO DAILY SUPPLEMENT 12/22/20 [History Last Taken 12/22/20] levothyroxine 125 mcg tablet 125 mcg PO 06/08/22 [History Last Taken Unknown] tolterodine 4 mg capsule,extended release 24 hr 4 mg PO 06/08/22 [History Last Taken Unknown] hydrocortisone 10 mg tablet See Rx Instructions PO .COMPLEX ADRENAL #270 tabs 11/18/22 [Rx Last Taken Unknown] Allergy/AdvReac Type Severity Reaction Status Date / Time No Known Allergies Allergy Verified 01/31/23 14:28 Family History Mother Skin cancer Cancer Skin and other unknown Sister Cancer Unknown type Surgical History History of back surgery History of cholecystectomy (~12/2019) Hx of colonoscopy Hx of elbow surgery Hx of heart artery stent Hx of left breast biopsy Social History Smoking Status: Never smoker second hand exposure: No alcohol intake: current alcohol intake frequency: holidays/special occasions only substance use type: does not use caffeine: Yes what type of physical activity do you participate in: none frequency: does not exercise EXAM Physical Exam Const Vital Signs: 05/05/23 12:16 05/05/23 12:36 05/05/23 12:37 Temperature 91.5 F L Temperature Source Axillary Pulse Rate 66 63 Respiratory Rate 27 H 28 H Respiratory Effort Normal Non-Labored Respiratory Depth Normal Respiratory Pattern Normal Blood Pressure 87/53 L 82/58 L Blood Pressure Mean 64 66 Blood Pressure Source Blood Pressure Position Blood Pressure Location Pulse Ox 98 99 99 Oxygen Delivery Method Non-Rebreather Non-Rebreather Non-Rebreather Oxygen Flow Rate (L/min) 12 10 10 Fraction of Inspired Oxygen (FIO2) 05/05/23 12:59 05/05/23 13:19 05/05/23 14:17 Temperature 88.1 F L Temperature Source Rectal Pulse Rate 61 62 62 Respiratory Rate 23 H 24 H 21 H Respiratory Effort Respiratory Depth Respiratory Pattern Blood Pressure 98/49 L 86/46 L 73/55 L Blood Pressure Mean 65 59 61 Blood Pressure Source Blood Pressure Position Blood Pressure Location Pulse Ox 98 98 98 Oxygen Delivery Method Non-Rebreather Non-Rebreather Room Air Oxygen Flow Rate (L/min) 6 6 Fraction of Inspired Oxygen (FIO2) 05/05/23 14:43 05/05/23 15:17 05/05/23 15:33 Temperature 90.1 F L 92 F L Temperature Source Rectal Oral Pulse Rate 61 69 69 Respiratory Rate 19 H 20 H 23 H Respiratory Effort Respiratory Depth Respiratory Pattern Blood Pressure 91/51 L 113/61 111/69 Blood Pressure Mean 64 78 83 Blood Pressure Source Monitor Blood Pressure Position Supine Blood Pressure Location Left Arm Pulse Ox 99 100 98 Oxygen Delivery Method Non-Rebreather Nasal Cannula Nasal Cannula Oxygen Flow Rate (L/min) 10 4 Fraction of Inspired Oxygen (FIO2) 16 05/05/23 15:48 Temperature Temperature Source Pulse Rate 73 Respiratory Rate 23 H Respiratory Effort Respiratory Depth Respiratory Pattern Blood Pressure 119/44 L Blood Pressure Mean 69 Blood Pressure Source Blood Pressure Position Blood Pressure Location Pulse Ox 98 Oxygen Delivery Method Nasal Cannula Oxygen Flow Rate (L/min) 4 Fraction of Inspired Oxygen (FIO2) [facility] [place] Narrative Medical decision making narrative: HISTORY OF PRESENT ILLNESS: 82-year-old male here for being found down on the floor. Patient unsure how long on the floor. Per EMS patient's saturation was 64% room air and his blood pressure 66/37. The patient does not provide reliable history. States he ate frosted flakes this morning. REVIEW OF SYSTEMS: Unable to obtain reliable review of systems given the patient's change in mental status. PHYSICAL EXAM: Nursing triage notes reviewed, Vital signs reviewed Constitutional: please see mdm HENT: Dry oral mucosa, Eyes: Pupils equal round and reactive to light, Extraocular muscles intact Neck: No stridor,, no step-offs deformities TTP to cervical spine Lungs: Clear to auscultation, no chest wall TTP or flail chest Heart: Regular rate and rhythm, No murmurs, No rubs and No gallops, 2+ distal pulses (radial, femoral, posterior tibial) in all extremities Abdomen: Soft, there is no tenderness, rigidity, rebound or guarding, no obvious peritoneal signs, no palpable pulsatile abdominal masses, no auscultated abdominal bruit : No CVAT Extremities: No edema Neuro: No focal neurological deficits, cranial nerves II through XII intact, 5/5 strength in all extremities. Intact sensation to light touch in all extremities, 2+ reflexes bilateral patella tendons. Normal gait. No ataxia. Skin: No rash or lesions noted MEDICAL DECISION MAKING: Chief Complaint: Fall, found down, hypotension, hypothermia, hypoxia External records reviewed: Imaging reviewed: Echocardiogram 2019 shows ejection fraction of 60 Factors affecting care: Parkinson disease, BPH, hypertension, GERD, BENITA, CAD, status post stent, no anticoagulation noted Social determinants of health: Elderly, altered mental status History obtained from others: EMS Consults: Internal medicine [facility] Narrative: Patient was initially hypotensive, tachypneic, hypothermic on a nonrebreather. I considered the following differential diagnosis: Intracranial abnormality, neurogenic shock, sepsis, dehydration, hypothermia, myxedema coma Patient was placed on a Woody hugger, attempt was made had a temp sensing Thompson however this failed with put a Thompson in through coud? without temp sensing although a rectal temperature showed even more severe hypothermia 88.1 ?F. Warm blankets were applied, warm IV fluids were given. Patient was given a 30 cc/kg bolus his blood pressure monitor very closely. Lactate was drawn, blood cultures were drawn. ALL IMAGES (IF OBTAINED) HAVE BEEN PERSONALLY REVIEWED AND INTERPRETED BY MYSELF. EKG with normal sinus rhythm, normal axis, prolonged QT interval, no obvious STEMI Lactate elevated consistent with endorgan hypoperfusion BNP within normal limit suggestive of no increased myocyte stretch CBC without significant leukocytosis or anemia, there is no thrombocytopenia There is evidence of mild coagulopathy elevated PT and elevated PTT ABG with metabolic acidosis I have personally reviewed the patient's chest x-ray. Chest x-ray is unremarkable for pulmonary edema, pneumothorax, pneumonia or focal cardiopulmonary abnormality. BMP without significant electrolyte abnormalities, there is significant renal failure which likely explains the patient's metabolic acidosis, there is no anion gap to suggest endorgan hypoperfusion, the glucose is within normal CK elevated consistent with rhabdomyolysis Troponin elevated likely demand ischemia from hypotension TSH is low, T3 is low concerning for true hyperthyroidism rather than hypothyroidism Urinalysis shows no evidence of urinary inflammation suggestive of UTI CT scan of the patient's head, cervical spine as well as chest x-rays and hip x- rays are negative for traumatic injuries. I willrefer neurogenic shock given lack of significant traumatic injury. Patient's pressure continued to downtrend despite her 30 cc/kg bolus at this point external peripheral Levophed and central line was placed in the right internal jugular vein. Please see procedure note. Patient given broad-spectrum antibiotics given elevated lactate, hypotension concern for distributive shock. Have a low suspicion for bacteremia, given normal thyroid studies at this time. Patient was then admitted to intensive care for further blood pressure evaluation, pressor support and IV antibiotics await cultures. Discussed with Dr. Carlos The patient and/or family, caregivers express understanding. The patient and/or family, caregivers agrees with the plan. Shared decision making: I will have a discussion with the patient and or visitors regarding risk/benefits of further testing or admission. They will be made aware of of the risk/benefits inherent in this decision they will be given the opportunity to voice understanding. Total critical care time today provided was at least 60 minutes. This excludes separately billable procedures. Critical care time (if documented) is secondary to the patient having high probability of clinically significant/life threatening deterioration in the patient's condition which required my urgent intervention. Procedure: Central line placement. Indication: Venous Access Consent: verbal. Risks of bleeding, infection, and pneumothorax were explained. A time out was completed. Maximal sterile barrier technique was used including cap, gown, sterile gloves, large sheet, hand washing and chlorhexidine prep. Anesthesia: The area anesthetized with 1% lidocaine. Procedure: The right internal jugular vein was punctured with a 19 gauge finder needle, then a wire introducer was placed, a 7 [place] triple lumen catheter was placed using Seldinger technique. There were no complications. Blood return was low pressure and non-pulsatile dark blood. Line secured in place with suture, and a sterile bio-occlusive dressing was applied. Patient tolerated procedure well. The procedure was performed by Estuardo Iverson DO Impression: 1. Hypothermia 2. Hypotension 3. Acute renal failure 4. Rhabdomyolysis Dispo: Admit to ICU Lab Data Labs: Laboratory Results - last 24 hr 05/05/23 05/05/23 12:47 13:04 WBC 10.1 RBC 4.32 L Hgb 13.7 Hct 40.6 MCV 94.0 MCH 31.7 MCHC 33.7 RDW Std Deviation 45.8 H RDW Coeff of Delisa 13.4 Plt Count 195 MPV 10.2 Immature Gran % (Auto) 0.400 Neut % (Auto) 86.9 H Lymph % (Auto) 6.7 L Schley % (Auto) 4.9 Eos % (Auto) 0.6 Baso % (Auto) 0.5 Absolute Neuts (auto) 8.8 H Absolute Lymphs (auto) 0.68 L Nucleated RBC % 0 PT 15.8 H INR 1.3 APTT 42.5 H Sodium 139 Potassium 4.0 Chloride 108 H Carbon Dioxide 19.0 L Anion Gap 12 BUN 44 H Creatinine 5.39 H Estim Creat Clear Calc 11.10 Est GFR (MDRD) Af Amer 13 L Est GFR (MDRD) Non-Af 11 L BUN/Creatinine Ratio 8.2 L Glucose 121 H Lactic Acid 4.5 H* Calcium 8.9 Magnesium 2.4 Total Bilirubin 0.70 AST 185 H ALT 49 Alkaline Phosphatase 76 Total Creatine Kinase 3226 H Troponin I High Sens 206 H* B-Natriuretic Peptide 57.4 Total Protein 6.0 L Albumin 2.7 L Globulin 3.3 Albumin/Globulin Ratio 0.8 L Lipase 29 TSH 0.27 L Free T4 1.07 Free T3 pg/dL 0.7 L Urine Color Yellow Urine Clarity Clear Urine pH 6.0 Ur Specific [place] 1.010 Urine Protein 30 H Urine Glucose (UA) Normal Urine Ketones Negative Urine Occult Blood 25 H Urine Nitrite Negative Urine Bilirubin Negative Urine Urobilinogen Normal Ur Leukocyte Esterase Negative Urine RBC 0 SEEN Urine WBC 0 SEEN Ur Squamous Epith Cells 0 SEEN Urine Bacteria 0 SEEN Urine Mucus 0 SEEN POC Glucose 95 ABG Data ABG results: ABG 05/05/23 13:18 Specimen Type ART Sample Site L Radial pH 7.29 L Bicarbonate Actual 15.6 L Total CO2 17 Base Excess -11 L O2 Saturation 100 H O2 % 6.0 ABG pCO2 32.2 L ABG pO2 229 H O2 Delivery Device Not entered Vent Mode Not entered Radiography Diagnostic Testing: Clinical Impression(s) from Imaging Studies Brain CT 05/05/23 12:37 IMPRESSION: Chronic involutional changes of the brain. Pansinusitis. Electronically Signed: Luis Fontaine MD at 14:46 EDT , Cervical Spine CT 05/05/23 12:37 IMPRESSION: Multilevel degenerative changes, as described above. Electronically Signed: Luis Fontaine MD at 14:38 EDT , Chest X-Ray 05/05/23 12:37 IMPRESSION: No acute abnormality is seen. Electronically Signed: Luis Fontaine MD at 14:30 EDT , Hip/Pelvis X-Ray 05/05/23 13:07 IMPRESSION: Mild joint space narrowing of the hip joints. No fracture or dislocation is seen. Electronically Signed: Luis Fontaine MD at 14:31 EDT , Discharge Plan Triage Chief Complaint: Fall ED Provider: Estuardo Iverson Dx/Rx/DC Orders Primary Care Provider: Gianluca Trevino
--- NOTE | 2023-05-05 12:37 | RAD_ITS ---
STUDY: X-RAY CHEST REASON FOR EXAM: Male, 82 years old. AMS, hypotension -- -- FALL TECHNIQUE: Single AP portable view of the chest. COMPARISON: Comparison is made with prior study dated January 31, 2023. FINDINGS: EKG electrodes are seen. The lungs are clear and expanded. There is no demonstrated pleural abnormality. Normal size heart. Normal mediastinum and rd. Normal visualized pulmonary arteries. There is atherosclerotic tortuosity of the aortic arch and descending thoracic aorta. There are diffuse degenerative changes of the visualized thoracic spine. Sclerotic fixation seen in the distal aspect of the thoracic spine. Normal visualized ribs, clavicles, and shoulders. There is no demonstrated abnormality of the visualized soft tissue structures of the upper abdomen. RAD/Chest 1 View (Portable) IMPRESSION: No acute abnormality is seen. Electronically Signed: Luis Fontaine MD at 14:30 EDT ,
--- NOTE | 2023-05-05 12:37 | CT_ITS ---
STUDY: CT CERVICAL SPINE WITHOUT CONTRAST REASON FOR EXAM: Male, 82 years old. AMS, fall, found down RADIATION DOSAGE (If Supplied By Facility): CTDIvol = ( 23.06 ) mGy, DLP = ( 458.96 ) mGycm TECHNIQUE: High resolution transaxial imaging was performed without contrast material. Sagittal and coronal images were reconstructed. Individualized dose optimization techniques were used for this CT. COMPARISON: None FINDINGS: Normal craniovertebral junction. There are degenerative changes of the anterior atlantoaxial articulation. Normal odontoid process. There is straightening of the normal cervical lordosis. Normal vertebral bodies and posterior osseous elements. C2-3: Normal endplates. Normal disc height and morphology. Normal central canal and intervertebral neuroforamina. C3-4: Mild degree of disc space narrowing. Uncovertebral arthrosis. Mild degree of bilateral neural foraminal stenosis. C4-5: Mild degree of disc space narrowing and spondylosis. No evidence of neural foraminal stenosis. C5-6: Mild degree of disc space narrowing. Spondylosis. Uncovertebral arthrosis with mild right neural foraminal stenosis. C6-7: Moderate degree of disc space narrowing. Spondylosis. Uncovertebral arthrosis. Mild degree of bilateral neural foraminal stenosis. C7-T1: Normal endplates. Normal disc height and morphology. Normal central canal and intervertebral neuroforamina. Atherosclerotic plaque formation of the carotid bifurcations. CT/Spine Cervical without Contras IMPRESSION: Multilevel degenerative changes, as described above. Electronically Signed: Luis Fontaine MD at 14:38 EDT ,
--- NOTE | 2023-05-05 12:37 | CT_ITS ---
STUDY: CT BRAIN WITHOUT CONTRAST REASON FOR EXAM: Male, 82 years old. AMS RADIATION DOSAGE (If Supplied By Facility): CTDIvol = ( 44.99 ) mGy, DLP = ( 745.49 ) mGycm TECHNIQUE: Transaxial CT imaging of the brain was performed without administration of intravenous contrast material. Individualized dose optimization techniques were used for this CT. COMPARISON: Comparison is made with prior study dated January 31, 2023. FINDINGS: Normal soft tissue structures. Normal calvarium. There is mild cerebral atrophy with widening of the extra-axial spaces and ventricular dilatation. There are areas of decreased attenuation within the white matter tracts of the supratentorial brain, consistent with microvascular disease changes. Normal basal ganglia and thalami. Normal brainstem. Normal cerebellum. There is no intracranial hemorrhage. There are no findings of an acute ischemic infarction. Atherosclerotic calcification of the cavernous portions of the internal carotid arteries bilaterally. Air-fluid levels in both maxillary sinuses more prominent on the left side. Mucosal thickening of the ethmoid sinuses and frontal sinuses. Partial opacification of the sphenoid sinus. CT/Brain/Head without Contrast IMPRESSION: Chronic involutional changes of the brain. Pansinusitis. Electronically Signed: Luis Fontaine MD at 14:46 EDT ,
--- NOTE | 2023-05-05 12:37 | EKG12_ITS ---
Test Reason : FALL Blood Pressure : / mmHG Vent. Rate : 062 BPM Atrial Rate : 000 BPM P-R Int : 000 ms QRS Dur : 084 ms QT Int : 518 ms P-R-T Axes : 000 051 220 degrees QTc Int : 525 ms SINUS RHYTHM Low voltage QRS ST & T wave abnormality, consider inferior ischemia ST & T wave abnormality, consider anterolateral ischemia Abnormal ECG QT has lengthened Confirmed by JEREMIE BOSTON, RENEE ([id number]), proposal editor MARCO GARCIA ([id number]) on 05/10/2023 11:28:30 AM Referred By: Confirmed By:LASHA CHAO MD
[2023-05-05] MEDS: 0.9% Normal Saline (1000mL) 1,000 ML 1000 ML IV ×2 (12:43→12:44)
[2023-05-05 12:55] LABS: Bacteria 0 SEEN /hpf (None Seen); Mucous, Urine 0 SEEN /hpf (<or=2+); Red Blood Cells-Urine 0 SEEN /hpf (0-5); Squamous Epithelial Cells - UA 0 SEEN /hpf (0-5); White Blood Cells 0 SEEN /hpf (0-5)
[2023-05-05 13:00] LABS: Absolute Lymphocyte Count 0.68 X10^3/uL (0.83-4.51); Absolute Neutrophil Count 8.8 X10^3/uL (2.0-7.7); Basophil# 0.05 X10^3/uL; Basophil% 0.5 % (0-1); Eosinophil# 0.06 X10^3/uL; Eosinophils% 0.6 % (0-5); Hematocrit 40.6 % (40-54); Hemoglobin 13.7 g/dL (13.0-16.5); Lymphocyte # 0.68 X10^3/ul (0.83-4.51); Lymphocyte % 6.7 % (19-41); Mean Corp Hgb Conc 33.7 g/dL (32-36); Mean Corpuscular Hgb 31.7 pg (27.0-32.0); Mean Platelet Vol. 10.2 fl (6.2-12.0); Monocyte% 4.9 % (0-10); NRBC Flagged by Analyzer 0 % (0-5); Neutrophil # 8.81 X10^3/uL (2.7-7.7); Neutrophil % 86.9 % (47-70); Platelet Count 195 K/mm3 (150-450); RBC Distribution Width CV 13.4 % (11.6-14.6); RBC Distribution Width SD 45.8 fl (35.1-43.9); Red Blood Count 4.32 M/mm3 (4.6-6.2); White Blood Count 10.1 K/mm3 (4.4-11.0)
[2023-05-05 13:06] LABS: Color, Urine Yellow (Yellow); Glucose, Dipstick Normal (Normal); Ketone-Dipstick Negative (Negative); Leukocyte Esterase-Dipstick Negative /ul (Negative); Nitrite-Dipstick Negative (Negative); Occult Blood-Urine 25 /ul (Negative); Protein-Dipstick 30 mg/dl (Negative); Urine Bilirubin Dipstick Negative (Negative); Urine Clarity Clear (Clear); Urine Urobilinogen Normal (Normal)
--- NOTE | 2023-05-05 13:07 | RAD_ITS ---
STUDY: X-RAY - PELVIS AND LEFT HIP REASON FOR EXAM: Male, 82 years old. Left hip bruise, r/o fx or dislocation -- -- FALL TECHNIQUE: 3 views of the pelvis and hip. COMPARISON: None. FINDINGS: There is a non-specific bowel gas pattern. There are multiple calcified phleboliths. There is narrowing with cortical sclerosis and osteophyte formation of the sacroiliac joint consistent with degenerative osteoarthritic changes. Normal bilateral superior and inferior pubic rami. Normal pubic symphysis. Normal bilateral ischial tuberosities. Normal visualized femoral head. Normal acetabulum. There is mild articular joint space narrowing of the hip. RAD/HIP, UNI W/ Pelvis 2-3 Views IMPRESSION: Mild joint space narrowing of the hip joints. No fracture or dislocation is seen. Electronically Signed: Luis Fontaine MD at 14:31 EDT ,
[2023-05-05 13:10] LABS: International Normalized Ratio 1.3; Prothrombin Time (Protime)PT. 15.8 SECONDS (11.7-14.9)
[2023-05-05 13:12] LABS: Partial Thromboplast Time 42.5 Seconds (24.1-36.2)
[2023-05-05] MEDS: 0.9% Normal Saline (1000mL) 1,000 ML 500 ML IV (13:20)
--- NOTE | 2023-05-05 13:20 | ED.RN ---
FLUIDS STARTED USING FLUID WARMER PER DR. JERRY VERBAL ORDER.
[2023-05-05 13:22] LABS: Base Excess -11 mmol/L (-2 to +2); Bicarbonate 15.6 mmol/L (22-26); Blood Gas Specimen Type ART; Mode Not entered; O2 Delivery Device Not entered; PO2 229 mmHG (75-100); SITE L Radial; SO2 100 % (95-99); Total Carbon Dioxide 17 mmol/L; pCO2 32.2 mmHg (35-45); pH 7.29 (7.35-7.45)
[2023-05-05 13:22] LABS: Bedside Glucose 95 mg/dL (74-106)
[2023-05-05 13:29] LABS: BNP,B-Type NATRIURETIC PEPTIDE 57.4 pg/mL (0-100)
[2023-05-05 13:30] LABS: Lactic Acid 4.5 mmol/L (0.4-1.9)
[2023-05-05 13:33] LABS: ALB/GLOB Ratio 0.8 RATIO (0.9-2.4); AST(SGOT) 185 U/L (15-37); Alanine Aminotransfer ALT/SGPT 49 U/L (16-61); Albumin, Serum 2.7 g/dL (3.2-5.0); Alkaline Phosphatase 76 U/L (45-117); Anion Gap 12 (5-15); BUN 44 mg/dL (7-18); BUN/Creat Ratio 8.2 RATIO (10-20); CPK Total, Creatine Kinase 3226 U/L (39-308); Calcium,Total 8.9 mg/dL (8.5-10.1); Chloride 108 mmol/L (98-107); Creatinine, Serum 5.39 mg/dL (0.70-1.30); EST Glomerular Filtration Rate 11 mL/min (>60); Est Glom Filt Rate - Afr Amer 13 mL/min (>60); Free T3 0.7 pg/mL (2.18-3.98); Globulin 3.3 g/dL (2.2-4.2); Glucose 121 mg/dL (74-106); Lipase 29 U/L (13-75); Sodium Level 139 mmol/L (136-145); T4 Free Direct 1.07 ng/dL (0.76-1.46); Thyroid Stim Hormone (TSH) 0.27 uIU/mL (0.358-3.74); Troponin-I HS 206 pg/mL (3.0-78.0)
[2023-05-05] MEDS: Norepinephrine 8 MG in 0.9% Normal Saline (250mL Bag) 242 ML 9.4 MG CONT INF (14:43)
[2023-05-05] MEDS: Piperacil/Tazobactam 3.375 GM in 0.9% Normal Saline (50mL MB+) 50 ML IV ×2 (15:13→20:54)
--- NOTE | 2023-05-05 15:29 | HP.PCM.HOS_ITS ---
HPI - General General Date of Admission: 05/05/23 Date of Service: 05/05/23 Chief Complaint: Fall, altered. HPI Narrative The patient is an 82 y/o M w/ PMHx: Anxiety and Depression, Chronic Fe deficiency anemia, Hx DVT, Hx ICH, BPH, Hx Pituitary macroadenoma s/p resection with Hypothyroidism/Adrenal insufficiency, Parkinson's disease, CAD s/p PCI x 6, HTN, HLD, BENITA who presents to the [facility] ED on 05/05/23 with history of mechanical fall of unclear timeline found on the floor prompting EMS call with saturations noted to be initially 64% on room air with blood pressure 66/37 with patient arousable and stated he did even eat breakfast that morning however he remained altered and was placed on a nonrebreather with transition to the ED for evaluation. The last anyone talked with his was Tuesday. He was noted to have brusies and was covered in several days worth of feces/urine. Eventually present in the room and noted that he had had an upper respiratory infection recently and had been with his father over the weekend prior. He notes that his father had been weak and fatigued and had loose stools. Work-up in the ED included 91.5, BP initially 87/53, respiratory rate 27, 98% on a nonrebreather 12 L with most recent vital signs T90.1 Rectally, heart rate 61, BP 91/51, respiratory rate 19, 99% on a nonrebreather 10 L with an FiO2 16 but his pressures dropped further despite 30 cc/kg bolus with levo started, central line placed in the ED, CBC with WBC 10.1, hemoglobin 13.7, platelet 195 with left shift and lymphopenia, coags with PT 15.8, INR 1.3, PTT 42.5, ABG with pH 7.29, bicarb 15.6, O2 saturation 100%, PCO2 32.2, PaO2 229, CMP with chloride 108, carbon oxide 19, anion gap 12, BUN/creatinine 44/5.39, glucose 121, lactic acid 4.5, AST/ALT 185/49, alk phos 76, total creatinine kinase 3226, troponin 206, BNP 57.4, TSH 0.27 however free T4 1.07, UA with no obvious evidence of UTI, urine culture pending per ED, blood culture pending per ED, CT of the brain with chronic involutional changes with pansinusitis, CT cervical spine with multilevel degenerative changes, chest x-ray with no acute cardiopulmonary findings, plain film of the left hip and pelvis with mild joint space narrowing of the hip joints otherwise no fracture or dislocation seen, EKG SR with rate 62, baseline with p wave apparent without acute evidence of ischemia. In the ED patient administered IV vancomycin and IV Zosyn as well as IV fluid bolus and eventually transition to norepinephrine with central line placement. [facility] Medical History Abnormal ultrasound of breast Acute cholecystitis Arthritis CAD in [place] artery Cholecystitis Fatigue History of DVT (deep vein thrombosis) History of heart attack History of pituitary tumor resection Left breast lump Low back problem Parkinson disease pituitary macroadenoma resection Postoperative abscess Preop cardiovascular exam Secondary adrenal insufficiency Secondary hypothyroidism Secondary hypothyroidism Secondary male hypogonadism Home Medications atorvastatin 20 mg tablet 20 mg PO DAILY cholesterol 12/25/19 [History Last Take n 12/21/20] aspirin 81 mg tablet,delayed release 81 mg PO DAILY Heart health 01/16/20 [History Last Taken 12/22/20] carbidopa 25 mg-levodopa 100 mg tablet 1.5 tab PO TID Parkinson disease 07/24/20 [History Last Taken 12/22/20] cholecalciferol (vitamin D3) 50 mcg (2,000 unit) capsule 2,000 unit PO DAILY Supplement 09/08/20 [History Last Taken 12/22/20] acetaminophen 500 mg tablet 1,000 mg (2 x 500 mg) PO Q6H PRN PRN Pain Score 1-5 09/25/20 [Rx Last Taken Unknown] escitalopram oxalate 10 mg tablet 10 mg PO DAILY 09/25/20 [Rx Last Taken 12/22/20] polysaccharide iron complex 150 mg iron capsule 150 mg PO DAILYCM #30 caps 09/25/20 [Rx Last Taken 12/21/20] omega 9-vic-pod-fish oil 1,200 mg (144 mg-216 mg) capsule (Fish Oil) 1,200 cap PO DAILY SUPPLEMENT 12/22/20 [History Last Taken 12/22/20] levothyroxine 125 mcg tablet 125 mcg PO 06/08/22 [History Last Taken Unknown] tolterodine 4 mg capsule,extended release 24 hr 4 mg PO 06/08/22 [History Last Taken Unknown] hydrocortisone 10 mg tablet See Rx Instructions PO .COMPLEX ADRENAL #270 tabs 11/18/22 [Rx Last Taken Unknown] Allergy/AdvReac Type Severity Reaction Status Date / Time No Known Allergies Allergy Verified 01/31/23 14:28 Family History (Updated 05/05/23 @ 20:[address] Dixie Carlos MD) Mother Skin cancer Cancer Skin and other unknown Sister Cancer Unknown type Father Alzheimer disease Surgical History History of back surgery History of cholecystectomy (~12/2019) Hx of colonoscopy Hx of elbow surgery Hx of heart artery stent Hx of left breast biopsy Social History Smoking Status: Never smoker second hand exposure: No alcohol intake: current alcohol intake frequency: holidays/special occasions only substance use type: does not use caffeine: Yes what type of physical activity do you participate in: none frequency: does not exercise ROS ROS Narrative Physical Examination: General: Currently improved, awakens to stimuli more alert, oriented to self and son in room but still not quite at baseline, remains cooperative, hard of hearing, laying in the ED bed, fatigued and ill-appearing. Skin: Normal color, normal turgor, no icterus, no cyanosis except for very staged ecchymoses to the extremities especially and bruising to the hip with recent fall likely the etiology. HEENT: AT/NC, EOMI, PERRLA, dry MM, no carotid bruits or JVD noted. Lungs: Diminished, greater bases, mild increased respiratory rate but no distress, no rales, ronchi or wheezing. Heart: Regular rate and rhythm; no gallop, rub audible. Abdomen: Soft, NTTP, ND, hyperactive BS, no HSM. Extremities: No cyanosis, no clubbing, mild peripheral ankle edema. Neurological: Patient awake, alert, oriented as noted, cognitive function improving but still not baseline intact, pupils equally reactive to light and accommodation, cranial nerves grossly normal, moving all 4 extremities, no specific focal deficits, strength severely globally decreased secondary to acute presentation complicated by age and underlying comorbidities. Psychiatric: Affect appears flat, fatigued, ill-appearing, no acute evidence of depressive or anxiety feelings. Review of Systems ROS Unobtainable: due to encephalopathy Vital Signs Vital Signs Vital Signs: 05/05/23 12:16 05/05/23 12:36 05/05/23 12:37 Temperature 91.5 F L Temperature Source Axillary Pulse Rate 66 63 Respiratory Rate 27 H 28 H Respiratory Effort Normal Non-Labored Respiratory Depth Normal Respiratory Pattern Normal Blood Pressure 87/53 L 82/58 L Blood Pressure Mean 64 66 Blood Pressure Source Blood Pressure Position Blood Pressure Location Pulse Ox 98 99 99 Oxygen Delivery Method Non-Rebreather Non-Rebreather Non-Rebreather Oxygen Flow Rate (L/min) 12 10 10 Fraction of Inspired Oxygen (FIO2) 05/05/23 12:59 05/05/23 13:19 05/05/23 14:17 Temperature 88.1 F L Temperature Source Rectal Pulse Rate 61 62 62 Respiratory Rate 23 H 24 H 21 H Respiratory Effort Respiratory Depth Respiratory Pattern Blood Pressure 98/49 L 86/46 L 73/55 L Blood Pressure Mean 65 59 61 Blood Pressure Source Blood Pressure Position Blood Pressure Location Pulse Ox 98 98 98 Oxygen Delivery Method Non-Rebreather Non-Rebreather Room Air Oxygen Flow Rate (L/min) 6 6 Fraction of Inspired Oxygen (FIO2) 05/05/23 14:43 05/05/23 15:17 Temperature 90.1 F L Temperature Source Rectal Pulse Rate 61 69 Respiratory Rate 19 H 20 H Respiratory Effort Respiratory Depth Respiratory Pattern Blood Pressure 91/51 L 113/61 Blood Pressure Mean 64 78 Blood Pressure Source Monitor Blood Pressure Position Supine Blood Pressure Location Left Arm Pulse Ox 99 100 Oxygen Delivery Method Non-Rebreather Nasal Cannula Oxygen Flow Rate (L/min) 10 4 Fraction of Inspired Oxygen (FIO2) 16 Weight Weight: 175 lb 11.335 oz Body Mass Index (BMI) 25.2 Results Lab / Micro Data 05/05/23 12:47 05/05/23 12:47 Labs: Laboratory Results - last 24 hr 05/05/23 12:47: WBC 10.1, RBC 4.32 L, Hgb 13.7, Hct 40.6, MCV 94.0, MCH 31.7, MCHC 33.7, RDW Std Deviation 45.8 H, RDW Coeff of Delisa 13.4, Plt Count 195, MPV 10.2, Immature Gran % (Auto) 0.400, Neut % (Auto) 86.9 H, Lymph % (Auto) 6.7 L, Edwards % (Auto) 4.9, Eos % (Auto) 0.6, Baso % (Auto) 0.5, Absolute Neuts (auto) 8.8 H, Absolute Lymphs (auto) 0.68 L, Nucleated RBC % 0, PT 15.8 H, INR 1.3, APTT 42.5 H, Sodium 139, Potassium 4.0, Chloride 108 H, Carbon Dioxide 19.0 L, Anion Gap 12, BUN 44 H, Creatinine 5.39 H, Estim Creat Clear Calc 11.10, Est GFR (MDRD) Af Amer 13 L, Est GFR (MDRD) Non-Af 11 L, BUN/Creatinine Ratio 8.2 L, Glucose 121 H, Lactic Acid 4.5 H*, Calcium 8.9, Total Bilirubin 0.70, AST 185 H, ALT 49, Alkaline Phosphatase 76, Total Creatine Kinase 3226 H, Troponin I High Sens 206 H*, B-Natriuretic Peptide 57.4, Total Protein 6.0 L, Albumin 2.7 L, Globulin 3.3, Albumin/Globulin Ratio 0.8 L, Lipase 29, TSH 0.27 L, Free T4 1.07, Free T3 pg/dL 0.7 L, Urine Color Yellow, Urine Clarity Clear, Urine pH 6.0, Ur Specific [place] 1.010, Urine Protein 30 H, Urine Glucose (UA) Normal, Urine Ketones Negative, Urine Occult Blood 25 H, Urine Nitrite Negative, Urine Bilirubin Negative, Urine Urobilinogen Normal, Ur Leukocyte Esterase Negative, Urine RBC 0 SEEN, Urine WBC 0 SEEN, Ur Squamous Epith Cells 0 SEEN, Urine Bacteria 0 SEEN, Urine Mucus 0 SEEN 05/05/23 13:04: POC Glucose 95 ABG Data ABG results: ABG 05/05/23 13:18 Specimen Type ART Sample Site L Radial pH 7.29 L Bicarbonate Actual 15.6 L Total CO2 17 Base Excess -11 L O2 Saturation 100 H O2 % 6.0 ABG pCO2 32.2 L ABG pO2 229 H O2 Delivery Device Not entered Vent Mode Not entered Radiology Impression Brain CT 05/05/23 12:37 IMPRESSION: Chronic involutional changes of the brain. Pansinusitis. Electronically Signed: Luis Fontaine MD at 14:46 EDT , Cervical Spine CT 05/05/23 12:37 IMPRESSION: Multilevel degenerative changes, as described above. Electronically Signed: Luis Fontaine MD at 14:38 EDT , Chest X-Ray 05/05/23 12:37 IMPRESSION: No acute abnormality is seen. Electronically Signed: Luis Fontaine MD at 14:30 EDT , Hip/Pelvis X-Ray 05/05/23 13:07 IMPRESSION: Mild joint space narrowing of the hip joints. No fracture or dislocation is seen. Electronically Signed: Luis Fontaine MD at 14:31 EDT , Assessment & Plan Assessment/Plan (1) Shock: PLAN: Plan The patient is an 82 y/o M w/ PMHx: Anxiety and Depression, Chronic Fe deficiency anemia, Hx DVT, Hx ICH, BPH, Hx Pituitary macroadenoma s/p resection with Hypothyroidism/Adrenal insufficiency, Parkinson's disease, CAD s/p PCI x 6, HTN, HLD, BENITA who presents to the [facility] ED on 05/05/23 with history of mechanical fall of unclear timeline found on the floor prompting EMS call with saturations noted to be initially 64% on room air with blood pressure 66/37 with patient arousable and stated he did even eat breakfast that morning however he remained altered and was placed on a nonrebreather with transition to the ED for evaluation. #1. Acute Encephalopathy, Multifactorial, secondary to Acute Shock, Undifferentiated with concurrent Acute hypoxia, hypothermia, tachypnea of unclear etiology with no clear infectious source and as noted #2-#6: Will admit to the ICU, customer solutions coordinator consulted, will initiate on stress dose IV hydrocortisone and hold his oral steroid regimen, will maintain on oxygen with wean as tolerated to room air, continue ATC budesonide, PRN albuterol, maintained on IV Zosyn and Vancomycin for possible infectious etiology with de- escalation as able, MRSA screen requested, HOB, IS parameters w/ pending sputum cultures, COVID PCR, full respiratory viral panel and urine antigens in addition to stool enteric/cdiff. Bld cx x 2 obtained in the ED. UA not marked appearing however urine culture is pending. We will plan repeat chest x-ray in AM. Of note most recent noted ECHO 12/25/2019 with normal LV systolic function, EF 60%, mildly enlarged LA, mild MVI, trivial TVI, trivial MARIANO, trivial PVI, RVSP 25 mmHg with no evidence of any diastolic dysfunction with repeat requested given NSTEMI likely secondary to demand as noted. #2. Acute NSTEMI: Suspect likely demand related given acute presentation with hypothermia, hypotension and acute hypoxic respiratory failure as noted. EKG in ED w/ SR with rate 62, baseline with p wave apparent without acute evidence of ischemia. CXR w/ no acute cardiopulmonary findings. Trop elevated, 206. Will maintain on a monitored bed, continue serial cardiac enzymes and EKGs. Obtain magnesium level upon admission. Will trend enzymes and if rise further will start heparin drip. Continue medical management. ECHO requested. FLP in AM. ASA, NG, morphine. Given likely demand related will hold on immediately involving Cardiology but low threshold to consult if significant troponin rise or cardiac arrhythmia concerns. #3. Acute rhabdomyolysis: Admission total creatinine kinase 3226 with lactic acidosis, acute kidney injury and transaminitis with elevated AST possibly all related, will continue aggressive fluids while monitoring respiratory status and will trend total creatinine kinase, monitor urine output. #4. Acute kidney injury: Admission BUN/Cr 44/5.39, prior baseline creatinine noted to be primarily 1.4-1.7 with most recent prior to current presentation 01/31/2023 creatinine 1.72. Will as noted continue to hydrate, hold nephrotoxic medications, trend CMP, will obtain renal ultrasound as well as FeNa assessment. If worsens low threshold to involve Nephrology. #5. Transaminitis: Admission CMP with T. bili 0.70, AST/LT 185/49, alk phos 76, last AST 01/31/2023 noted to be normal at 20, suspect related with acute presentation as noted with acute rhabdo, acute kidney injury, will continue treatments as noted and repeat CMP in AM. #6. Lactic acidosis: Admission lactic acid 4.5, suspect multifactorial with rhabdomyolysis as well as acute kidney injury with respiratory failure, continue IV fluids while monitoring respiratory status, trend LA per facility protocol #7. CAD: Status post PCI x 6, will continue aspirin, statin, per current list not on beta-nevaeh therapy however given hypotension this will be deferred. #8. Hx Pituitary macroadenoma s/p resection with Hypothyroidism/Adrenal insuffi ciency: We will maintain on patient home levothyroxine regimen, given significant presentation will stress dose with hydrocortisone and temporally hold oral regimen. ED initiated TSH 0.27 however free T41.07, subclinical. #9. Chronic iron deficiency anemia: Admission hemoglobin 13.7, MCV 94, baseline hemoglobin recently 13-14, stable, continue iron supplementation and CBC trending. #10. Parkinson's disease: We will continue patient home Sinemet regimen, complicates presentation, maintain on fall and aspiration precautions, PT/OT/case management consulted for discharge planning. #11. Anxiety and depression: We will continue patient home escitalopram regimen. #12. Hyperlipidemia: We will continue patient home statin therapy; however, if LFT rises 3x ULN will hold. #13. History ICH: Unclear history of event, current CT of the head with no acute intracranial findings as noted. #14. BPH: Per current list not on regimen, clarifying we will add if appropriate. #15. BENITA: Clarifying if patient uses CPAP nightly. #16. DVT prophylaxis: heparin. #17. CODE status: Patient does not have healthcare power associate attorney or living will but his son is present and they both note that he would be the decision maker. From discussions they are uncertain if living will and is in place. D iscussed CODE status at length including difference between FULL code, DNR-CCA and DNR-CC status. Following discussions about the differences in these status, requested DNR-CCA, no intubation but amenable with central line being placed now her ED physician and pressors. Advanced Care Planning Face to Face Time: 16 minutes. Charges/Coding Visit Charges Inpatient E&M: 12480 Init Hosp L3 Procedures Hospitalists Procedures: 54307 Advncd Care Plan 30 Min
[2023-05-05] MEDS: Vancomycin HCl 1,250 MG in 0.9% Normal Saline (250mL Bag) 250 ML 167 MG IV (16:17)
--- NOTE | 2023-05-05 16:18 | US_ITS ---
STUDY: RENAL ULTRASOUND - COMPLETE REASON FOR EXAM: Male, 82 years old patient with acute renal insufficiency (GERTRUDE). TECHNIQUE: Ultrasound evaluation of the kidneys was performed with real-time and static camejo-scale imaging. COMPARISON: Ultrasound the abdomen dated May 20, 2022. FINDINGS: RIGHT KIDNEY: Normal location of the right kidney, which is normal in size. The right kidney measures 10.1 x 4.6 x 4.6 cm. Renal cortex appears slightly echogenic. The renal cortex measures 1.4 cm. There is no right renal mass or cyst. There are no right renal calculi. There is no right hydronephrosis. DISTAL RIGHT URETER: There is non-visualization of the distal right ureter. There is no demonstrated right ureterovesical junction calculus. There is no demonstrated right ureteral jet. LEFT KIDNEY: Normal location of the left kidney, which is normal in size. The left kidney measures 10.4 x 5.4 x 4.2 cm. Renal cortex appears minimally echogenic. The renal cortex measures 1.5 cm. There is a small renal cyst measuring 1.1 cm in greatest dimension. There are no left renal calculi. There is no left hydronephrosis. DISTAL LEFT URETER: There is non-visualization of the distal left ureter. There is no demonstrated left ureterovesical junction calculus. There is no demonstrated left ureteral jet. BLADDER: The distended urinary bladder has a volume of 9.8 ml. The There is a normal wall thickness of the distended urinary bladder. There is no demonstrated mass within the urinary bladder. There are no demonstrated bladder calculi. US/Kidney and Bladder IMPRESSION: 1. Echogenic renal parenchyma suggests possible sequela chronic renal insufficiency and/or medical renal disease. 2. Left-sided renal cyst. Electronically Signed: Yoli Carreon MD at 6:24 EDT ,
--- NOTE | 2023-05-05 16:37 | NURSING ---
ICU WHITE HYPOTENSION
[2023-05-05 16:53] LABS: Magnesium 2.4 mg/dL (1.6-2.6)
[2023-05-05 16:54] LABS: Reflex Lactate? Y
--- NOTE | 2023-05-05 17:24 | ECHOD_ITS ---
Reason For Study: NSTEMI Procedure This was a 2D Doppler, Color Flow transthoracic echocardiogram. Exam performed portable in ICU/CCU. The exam was abbreviated due to the COVID 19 protocol. Left Ventricle Normal LV size. The estimated ejection fraction is 55 %. No evidence for diastolic dysfunction. No regional wall motion abnormalities noted. Right Ventricle Normal RV size. Normal systolic function. Atria Normal left atrium. Normal right atrium. No doppler evidence for ASD. Mitral Valve There is no mitral valve stenosis. Trivial mitral valve insufficiency. Tricuspid Valve There is no tricuspid stenosis. Unable to estimate RV systolic pressure due to insufficient tricuspid regurgitant envelope. Trivial tricuspid valve insufficiency. Aortic Valve Trisinus/trileaflet aortic valve. There is no aortic stenosis. No aortic valve insufficiency. Pulmonic Valve There is no pulmonic valvular stenosis. No pulmonic valve insufficiency. Great Vessels Normal aortic root. Pericardium/Pleural No pericardial effusion. MMode/2D Measurements & Calculations LVIDd: 4.6 cm IVSd: 0.97 cm Ao root diam: 3.2 cm LVIDs: 2.8 cm LVPWd: 0.79 cm FS: 39.6 % LA dimension(2D): 3.7 cm Doppler Measurements & Calculations MV E max adrian: 51.2 cm/sec Lat Peak E' Adrian: 6.3 cm/sec Med Peak E' Adrian: 5.1 cm/sec MV A max adrian: 57.9 cm/sec E/E' lat: 8.1 E/E' med: 10.0 MV E/A: 0.88 Ao V2 max: 115.4 cm/sec LV V1 max: 65.5 cm/sec PA V2 max: 78.6 cm/sec Ao max P.3 mmHg LV V1 max P.7 mmHg TR max adrian: 211.7 cm/sec TR max P.0 mmHg ECHO/Echo Complete Interpretation Summary The estimated ejection fraction is 55 %. No evidence for diastolic dysfunction. Trivial mitral valve insufficiency. Ordering Physician: Dixie Carlos Referring Physician: García Trevino MD Performed By: Lexie Deleon RDCS
--- NOTE | 2023-05-05 18:00 | RAD_ITS ---
STUDY: X-RAY CHEST REASON FOR EXAM: Male, 82 years old. line placement TECHNIQUE: AP portable COMPARISON: May 05, 2023 1:48 PM FINDINGS: The lungs are clear and expanded. There is no demonstrated pleural abnormality. Normal size heart. Normal mediastinum and rd. Normal visualized pulmonary arteries. Normal visualized aortic arch and descending thoracic aorta. Dorsal spine demonstrates degenerative change. Normal visualized ribs, clavicles, and shoulders. Central line is in place on the right with tip in superior vena cava approximately 6 cm proximal to the atrial caval junction There is no demonstrated abnormality of the visualized soft tissue structures of the upper abdomen. Postsurgical changes of thoracolumbar scoliosis deformity RAD/CXR for Line Placement IMPRESSION: No evidence of pneumothorax status post right central line placement with tip approximately 6 cm proximal to the atrial caval junction. Electronically Signed: Martín Jonas MD at 18:43 EDT ,
[2023-05-05] MEDS: 0.9% Normal Saline (1000mL) 1,000 ML 125 ML IV (18:32)
[2023-05-05] MEDS: Hydrocortisone Sod Succinate 100 MG/2 ML Vial IV (18:32)
[2023-05-05 18:52] LABS: Procalcitonin 4.54 ng/mL (0.00-0.09)
[2023-05-05 18:58] LABS: Lactic Acid 1.7 mmol/L (0.4-1.9)
[2023-05-05 19:09] LABS: Urine Sodium 79 mmol/L (Not Establ.)
--- NOTE | 2023-05-05 19:11 | PCM.RX.CS ---
Consult Antibiotic Management Pharmacy has been consulted to manage selected antiobiotic: Vancomycin Type of Intervention Type of Consult: New start Suspected Infection Suspected Infection: Sepsis Prior Doses of Antibiotics Prior Doses of Antibiotics Received/Current Regimen: Patient received vancomycin 1250 mg IV x 1 on 05/05/23 @ 1617, patient is also on zosyn 3.375g Q12H. Labs Labs: Sodium 139 mmol/L (136-145) 05/05/23 12:47 Potassium 4.0 mmol/L (3.5-5.1) 05/05/23 12:47 Chloride 108 mmol/L (98-107) H 05/05/23 12:47 Carbon Dioxide 19.0 mmol/L (21.0-32.0) L 05/05/23 12:47 Anion Gap 12 (5-15) 05/05/23 12:47 BUN 44 mg/dL (7-18) H 05/05/23 12:47 Creatinine 5.39 mg/dL (0.70-1.30) H 05/05/23 12:47 Est GFR (MDRD) Af Amer 13 mL/min (>60) L 05/05/23 12:47 Est GFR (MDRD) Non-Af 11 mL/min (>60) L 05/05/23 12:47 BUN/Creatinine Ratio 8.2 RATIO (10-20) L 05/05/23 12:47 Glucose 121 mg/dL (74-106) H 05/05/23 12:47 Microbiology Microbiology: Microbiology 05/05/23 18:11 Urine Catheter - Catheter Legionella Antigen - Final 05/05/23 18:11 Urine Catheter - Catheter Streptococcus pneumoniae Antigen (M - Final Dosing Weight Weight used for dosin.7 kg Estimated Creatinine Clearance Estimated Creatinine Clearance: 11.1 Goal Trough Goal Trough: 15-20 mcg/mL Pharmacy Plan for Drug Dosing Pharmacy Plan for Drug Dosing: Patient received 1250 mg IV x 1 in ED. D/t renal function will get random level in 24 hours and reassess. Pharmacy Service will continue to monitor and adjust dosing as required. Follow-Up Labs Follow-Up Labs: Trough: Vancomycin (Random) Date/Time Labs Ordered Labs to be done on [date and time ordered]: 05/06/23 @ 1700 (random)
[2023-05-05] MEDS: Budesonide Respules 0.5 MG/2 ML AMPUL.NEB. INHALATION (19:13)
[2023-05-05 20:19] LABS: M R Staph aureus DNA By PCR Negative (Negative); Probe Check PASS; Specimen Processing Control PASS
[2023-05-05] MEDS: Menthol/Lanolin/Calamine/Znox 113 GM Tube 1 APPLIC TOPICAL (20:52)
[2023-05-05] MEDS: Carbidopa/Levodopa 25/100 Tablet PO (20:53)
[2023-05-05] MEDS: Heparin Injection (Vial) 5,000 UNIT/ML VIAL 5000 UNIT SC (20:53)
--- NOTE | 2023-05-05 20:57 | CPS ---
Pt refused PAP therapy, stated he does not wear one at home. Pt on 4L 93%
[2023-05-05 20:58] LABS: Troponin-I HS 153 pg/mL (3.0-78.0)
[2023-05-05 22:06] LABS: D-Dimer Quantitative (DVT/PE) 3.59 FEU/ug/m (0.27-0.49)
[2023-05-05 22:19] LABS: Procalcitonin 4.35 ng/mL (0.00-0.09)
[2023-05-05 22:49] LABS: Troponin-I HS 150 pg/mL (3.0-78.0)
[2023-05-05 22:51] LABS: Ferritin 2413 ng/mL (26-388); LDH 303 U/L (87-241)
[2023-05-06] VITALS (41 sets, daily range): BP systolic 79–131; BP diastolic 48–73; PULSE 61–88; RESP 14–27; TEMP 35.9–36.4; O2SAT 93–100; BMI 25.7
[2023-05-06] MEDS: Hydrocortisone Sod Succinate 100 MG/2 ML Vial 50 MG IV ×5 (00:24→22:34)
[2023-05-06] MEDS: 0.9% Saline Lock 10 ML Syringe IV (00:25)
--- NOTE | 2023-05-06 00:50 | CT_ITS ---
We are attempting to reach an attending provider to discuss findings. An addendum with communication details will be sent when the communication is complete. STUDY: CT BRAIN WITHOUT CONTRAST REASON FOR EXAM: Male, 82 years old patient presents for stroke alert. RADIATION DOSAGE (If Supplied By Facility): CTDIvol = ( 44.99 ) mGy, DLP = ( 846.73 ) mGycm TECHNIQUE: Transaxial CT imaging of the brain was performed without administration of intravenous contrast material. Multiplanar reformations are submitted for interpretation. Individualized dose optimization techniques were used for this CT. COMPARISON: CT of the head dated May 05, 2023. FINDINGS: Normal soft tissue structures. Normal calvarium. There is mild cerebral atrophy with widening of the extra-axial spaces and ventricular dilatation. There are areas of decreased attenuation within the white matter tracts of the supratentorial brain, consistent with microvascular disease changes. Normal basal ganglia and thalami. Normal brainstem. There is mild cerebellar atrophy. There is no intracranial hemorrhage. There is moderate atherosclerotic calcification of the intracranial arteries. The patient has had extensive previous paranasal sinus surgery. There appears be fluid in the left maxillary sinus as well as the sphenoid sinuses. There may be some fluid within the frontal sinuses. There is mucosal thickening within the ethmoid sinuses. There is focal dehiscence involving the roof of the sphenoid sinus that communicates apparently with the sella. Has the patient had transsphenoidal surgery? CT/STROKE Brain/Head without Cont IMPRESSION: 1. Chronic involutional changes of the brain. 2. Sequela of extensive paranasal sinus surgery. 3. 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 4. No CT evidence of acute intracranial hemorrhage. 5. Findings suggest persistent paranasal sinus disease. Electronically Signed: Yoli Carreon MD at 1:10 EDT ,
[2023-05-06] MEDS: 0.9% Normal Saline (1000mL) 1,000 ML 125 ML IV ×3 (02:32→20:26)
[2023-05-06 03:00] LABS: Bedside Glucose 103 mg/dL (74-106)
--- NOTE | 2023-05-06 03:19 | PCM.HOSP.N ---
Hospitalist Note Stroke alert called by nursing staff at approximately 12:40 AM. They noted the patient had some slurred speech and had a change in mental status (was not oriented to time or place), which was different to their assessment at 10 PM. Patient taken for urgent CT head. Unable to give contrast for CT scan given severe GERTRUDE. CT head without contrast showed no intracranial hemorrhage, moderate atherosclerotic calcification of intracranial arteries, chronic microvascular disease changes. CT notably did show that patient has had extensive previous paranasal sinus surgery, with apparent new focal dehiscence involving the roof of the sphenoid sinus that communicates with the sella. Dr. Carreon with radiology called to review these results directly with me. Dr. Geiger with [facility] teleneurology performed stroke assessment on patient. He then called me directly to review his findings with me. Noted an NIH score of 3. Given patient's low NIH score and abnormal CT findings with possible dehiscence of sphenoid sinus, decision was made to hold off on giving thrombolytics. Overall, have higher concern that mental status changes were due to a degree of metabolic encephalopathy. We will place the following orders per neurology recommendations: MRI brain without contrast, echo, carotid ultrasound, speech therapy consult, A1c, lipid profile. 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 S/p pituitary surgery in [facility] in 07/2019. Follows with endocrinology outpatient for hypopituitarism. Previous CT head scan showed postsurgical changes. Unsure what to make of possible focal dehiscence noted on imaging today, however have low concern that it is contributing to his suspected metabolic encephalopathy at this time. Would prefer to have an ENT evaluation to ensure that there is nothing to do acutely, however I am unsure if this would require transferring the patient for ENT services. Will defer to day teams for further recommendations.
[2023-05-06 03:27] LABS: Absolute Lymphocyte Count 0.32 X10^3/uL (0.83-4.51); Absolute Neutrophil Count 12.6 X10^3/uL (2.0-7.7); Basophil# 0.05 X10^3/uL; Basophil% 0.4 % (0-1); Eosinophil# 0.06 X10^3/uL; Eosinophils% 0.4 % (0-5); Hematocrit 38.2 % (40-54); Hemoglobin 12.4 g/dL (13.0-16.5); Lymphocyte # 0.32 X10^3/ul (0.83-4.51); Lymphocyte % 2.4 % (19-41); Mean Corp Hgb Conc 32.5 g/dL (32-36); Mean Corpuscular Hgb 30.7 pg (27.0-32.0); Mean Corpuscular Volume 94.6 fL (80-94); Mean Platelet Vol. 9.9 fl (6.2-12.0); Monocyte# 0.46 X10^3/uL; Monocyte% 3.4 % (0-10); NRBC Flagged by Analyzer 0 % (0-5); Neutrophil # 12.63 X10^3/uL (2.7-7.7); Neutrophil % 92.7 % (47-70); POSITIVE DIFFERENTIAL YES; POSITIVE MORPHOLOGY YES; Platelet Count 190 K/mm3 (150-450); RBC Distribution Width CV 13.5 % (11.6-14.6); RBC Distribution Width SD 46.5 fl (35.1-43.9); Red Blood Count 4.04 M/mm3 (4.6-6.2); White Blood Count 13.6 K/mm3 (4.4-11.0)
--- NOTE | 2023-05-06 03:27 | CDU_ITS ---
Reason For Study: Evaluate for severe carotid disease Rt. Velocities/BP Lt. Velocities/BP Dist CCA 48.5/7.8 cm/sec. Prox CCA 86.4/13.3 cm/sec. Prox ICA 28.7/6.6 cm/sec. Mid CCA 70/11.5 cm/sec. Mid ICA 65.9/18.8 cm/sec. Dist CCA 64.5/11.5 cm/sec. Dist ICA 80.9/22.5 cm/sec. Prox ICA 35.2/9 cm/sec. Rt. ICA/CCA = 1.69. Mid ICA 61.3/17.7 cm/sec. Prox ECA 91.6/4.7 cm/sec. Dist ICA 59.6/16.8 cm/sec. Central line place on right side of Lt. ICA/CCA = 0.88. neck, limited views obtained. Prox ECA 88.2/7.9 cm/sec. Lt. Vert. 45.8/9.5 cm/sec. Right Extracranial There is intimal thickening but no significant atherosclerotic plaque noted in the right common carotid artery. There is homogeneous, smooth atherosclerotic plaque noted in the right internal carotid artery. The right internal carotid artery is not well visualized. The right internal carotid artery is very tortuous. There is intimal thickening but no significant atherosclerotic plaque noted in the right external carotid artery. The right vertebral artery could not be visualized. Left Extracranial There is heterogeneous, smooth atherosclerotic plaque noted in the left common carotid artery. There is intimal thickening but no significant atherosclerotic plaque noted in the left internal carotid artery. The left internal carotid artery is very tortuous. There is heterogeneous, smooth atherosclerotic plaque noted in the left external carotid artery. Antegrade flow is noted in the left vertebral artery. Procedure Carotid Duplex 31794. This is a Carotid Duplex examination using B-mode, color flow and specral Doppler. The study was technically difficult. Limited views were obtained. Exam performed portable in ICU/CCU. VL/Carotid Duplex Ultrasound Interpretation Summary Mild (<50%) stenosis right extracranial internal carotid. Mild (<50%) stenosis left extracranial internal carotid. The Left vertebral is patent and antegrade. Right vertebral artery is not visualized Limited study on right, alternative imaging ma be beneficial Ordering Physician: Antolin Vizcarra Referring Physician: García Trevino MD Performed By: Sepideh Hidalgo RVT
--- NOTE | 2023-05-06 03:27 | MRI_ITS ---
EXAM: MR HEAD WITHOUT INTRAVENOUS CONTRAST CLINICAL INDICATION: Rule out acute CVA, slurred speech, mental status change, COVID + TECHNIQUE: Multiplanar and multisequence MR images of the brain were obtained without intravenous contrast. Magnetic field strength 1.5 T. COMPARISON: MR brain 12/14/2021. Noncontrast head CT 05/06/2023. FINDINGS: BRAIN AND EXTRA-AXIAL SPACES: Abnormal T2 signal in the deep cerebral white matter is consistent with chronic small vessel ischemic/degenerative changes. The cerebral and cerebellar sulci are prominent consistent with brain atrophy. No intra- or extra-axial hemorrhage. No intracranial mass or mass effect. Basal cisterns are patent. SELLA: Unremarkable. Normal sella turcica, pituitary gland, infundibular stalk, optic chiasm and hypothalamus. AUDITORY SYSTEM: Unremarkable. The internal auditory canals are patent. BONES/JOINTS: Unremarkable. No discrete lytic or blastic abnormalities. SINUSES: Fluid level in the left maxillary sinus and sphenoid sinuses unchanged since prior CT. Prior paranasal sinus surgery. MASTOID AIR CELLS: Unremarkable as visualized. Clear. ORBITS: Unremarkable as visualized. Both globes, extraocular muscles, optic nerves and retrobulbar fat appear unremarkable. VASCULATURE: Unremarkable as visualized. Normal flow voids in the major intracranial circulation. MRI/Brain without Contrast IMPRESSION: 1. Fluid level in the left maxillary sinus and sphenoid sinuses unchanged since prior CT. 2. Chronic small vessel ischemic/degenerative changes. 3. Cerebral and cerebellar atrophy. 4. No acute intracranial abnormality. Electronically Signed: Alex Magdaleno MD at 18:46 EDT ,
[2023-05-06 03:41] LABS: Differential Indicated SCAN CRITERIA MET
[2023-05-06 04:05] LABS: Burr Cells 1+
[2023-05-06 04:08] LABS: Troponin-I HS 136 pg/mL (3.0-78.0)
[2023-05-06 04:50] LABS: ALB/GLOB Ratio 0.8 RATIO (0.9-2.4); AST(SGOT) 175 U/L (15-37); Alanine Aminotransfer ALT/SGPT 18 U/L (16-61); Albumin, Serum 2.4 g/dL (3.2-5.0); Alkaline Phosphatase 65 U/L (45-117); Anion Gap 11 (5-15); BUN 47 mg/dL (7-18); BUN/Creat Ratio 9.4 RATIO (10-20); CPK Total, Creatine Kinase 2162 U/L (39-308); Calcium,Total 7.7 mg/dL (8.5-10.1); Chloride 114 mmol/L (98-107); Cholesterol 70 mg/dL (200); EST Glomerular Filtration Rate 12 mL/min (>60); Est Glom Filt Rate - Afr Amer 14 mL/min (>60); Estimated Creatinine Clearance 11.59 ml/min; Globulin 3.2 g/dL (2.2-4.2); Glucose 123 mg/dL (74-106); High Density Lipoprotein 25 mg/dL; Potassium 4.5 mmol/L (3.5-5.1); Protein, Total 5.6 g/dL (6.4-8.2); Sodium Level 142 mmol/L (136-145); Triglycerides 143 mg/dL; Very Low Density Lipoprotein 29 mg/dL (5-40)
--- NOTE | 2023-05-06 05:40 | RAD_ITS ---
INDICATION: Hypoxia EXAMINATION/TECHNIQUE: X-RAY - XR Chest 1 View COMPARISON: 5:50 PM. FINDINGS: LINES/DEVICES: Right IJ line is unchanged. LUNGS: No consolidation, edema or effusion. No pneumothorax. MEDIASTINUM AND CARDIOVASCULAR STRUCTURES: Cardiac silhouette not enlarged. Central airways and mediastinal contour are unremarkable. BONES AND SOFT TISSUES: Unremarkable. RAD/Chest 1 View (Portable) IMPRESSION: No radiographic evidence of acute cardiopulmonary disease. Electronically Signed: Shefali Beard MD at 17:37 EDT Reading Location ID and State: [id number] / Tel , Service support ,
[2023-05-06] MEDS: Menthol/Lanolin/Calamine/Znox 113 GM Tube 1 APPLIC TOPICAL ×3 (06:29→22:33)
[2023-05-06] MEDS: Carbidopa/Levodopa 25/100 Tablet PO ×3 (06:29→22:34)
[2023-05-06] MEDS: Levothyroxine 125 MCG Tablet PO (06:29)
[2023-05-06] MEDS: Albuterol 2.5 MG/3 ML VIAL.NEB. INHALATION (06:54)
[2023-05-06] MEDS: Budesonide Respules 0.5 MG/2 ML AMPUL.NEB. INHALATION ×2 (06:57→19:40)
--- NOTE | 2023-05-06 07:17 | EX.PCM.CONCC ---
Assessment & Plan Assessment/Plan (1) Shock: (2) COVID-19: PLAN: Plan RECOMMENDATIONS: 1. Continue gentle IV fluid hydration. 2. Supplemental oxygen to maintain saturations at or above 90%. 3. Continue stress dose steroids. We will start to wean tomorrow if the patient remains hemodynamically stable. 4. Continue empiric antimicrobials. 5. Obtain echocardiogram. 6. MRI brain as scheduled. IMPRESSIONS: 1. Hypotension The patient initially presented to the hospital in encephalopathic state with associated hypotension and hypoxemia. His presenting hypotension was likely the consequence of intravascular volume depletion coupled with potential adrenal insufficiency. He did receive supplemental IV fluid hydration and stress dose steroids, but was only transiently on Levophed. Plan to continue gentle IV fluid hydration as tolerated. The patient remains hemodynamically stable at the present time. 2. Encephalopathy Likely related to presenting infection with COVID-19 pneumonia. The patient does have Parkinson's disease with questionable dementia. He is alert and appropriate at the present time. Plan to continue to monitor the patient clinically. Overnight, there was some concern for stroke for which CT head was obtained. There were no acute findings. Neurology evaluated the patient and an MRI is currently planned. 3. Hypoxemia/COVID-19 pneumonia Likely secondary to underlying COVID-19 pneumonia. In addition, the patient has an apparent history of obstructive sleep apnea and is supposed to be utilizing outpatient nocturnal PAP therapy. Recommend continuing nocturnal PAP therapy along with supplemental oxygen to maintain saturations at or above 90%. The patient was already initiated on stress dose steroids at the time of his admission to the hospital. No need for remdesivir. 4. Acute kidney injury/rhabdomyolysis Likely prerenal in etiology. Continue supplemental IV fluid hydration and trend CPK levels. Anticipate further improvement with renal function pending stability and hemodynamics and volume expansion. 5. NSTEMI/history of coronary artery disease Most likely secondary to demand ischemia in the setting of the above. Plan to obtain echocardiogram. 6. History of pituitary macroadenoma status postresection/hypothyroidism/anemia/Parkinson's disease/obstructive sleep apnea Complicates care, management, recovery and prognosis. Initiate nocturnal PAP therapy per home regimen. Continue baseline home medications as indicated. This note was generated with [employer] software. It may contain incorrect words, spelling, and punctuation that were not noted in checking the note before signing. HPI Consult Data Date of Consult: 05/06/23 HPI Narrative Reason for Consultation: Sepsis, COVID-19 HPI Narrative: The patient is an 82-year-old male, with a history as outlined below, who presented to the emergency department via EMS on May 05 after being found down on the floor following a suspected mechanical fall. The patient has extensive medical history including anemia, history of DVT, history of pituitary macroadenoma, hypothyroidism, adrenal insufficiency, Parkinson's disease, coronary artery disease, hypertension, hyperlipidemia and obstructive sleep apnea On presentation to the emergency department, the patient had a documented temperature of 91.5 ?F. He was hypotensive and tachypneic. Initial laboratory evaluation demonstrated no evidence of a leukocytosis. Coagulation profile revealed an INR of 1.3 with a D-dimer of 3.59. Chemistry profile was notable for a chloride of 108, bicarbonate of 19 and creatinine of 5.39. Lactate was elevated at 4.5. CK was increased to 3226. Troponin was elevated at 206. CRP is elevated at 311. Procalcitonin was increased to 4.54. Urine analysis was noncontributory. COVID PCR was positive. Blood and urine cultures were sent. The patient was placed on supplemental IV fluids, but transiently required Levophed. Antimicrobials were initiated. Stress dose steroids were started. The patient was subsequently admitted to the medical intensive care unit for further management. Overnight, the patient apparently demonstrated increasing encephalopathy and confusion for which a stroke alert was called. CT head demonstrated chronic involutional changes of the brain. There is an MRI tentatively scheduled for later this morning. The patient remains hemodynamically stable this morning, without the need for vasopressor support. 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 Home Medications atorvastatin 20 mg tablet 20 mg PO DAILY cholesterol 12/25/19 [History Last Taken 12/21/20] aspirin 81 mg tablet,delayed release 81 mg PO DAILY Heart health 01/16/20 [History Last Taken 12/22/20] carbidopa 25 mg-levodopa 100 mg tablet 1.5 tab PO TID Parkinson disease 07/24/20 [History Last Taken 12/22/20] cholecalciferol (vitamin D3) 50 mcg (2,000 unit) capsule 2,000 unit PO DAILY Supplement 09/08/20 [History Last Taken 12/22/20] acetaminophen 500 mg tablet 1,000 mg (2 x 500 mg) PO Q6H PRN PRN Pain Score 1-5 09/25/20 [Rx Last Taken Unknown] escitalopram oxalate 10 mg tablet 10 mg PO DAILY 09/25/20 [Rx Last Taken 12/22/20] polysaccharide iron complex 150 mg iron capsule 150 mg PO DAILYCM #30 caps 09/25/20 [Rx Last Taken 12/21/20] omega 6-qaw-hku-fish oil 1,200 mg (144 mg-216 mg) capsule (Fish Oil) 1,200 cap PO DAILY SUPPLEMENT 12/22/20 [History Last Taken 12/22/20] levothyroxine 125 mcg tablet 125 mcg PO 06/08/22 [History Last Taken Unknown] tolterodine 4 mg capsule,extended release 24 hr 4 mg PO 06/08/22 [History Last Taken Unknown] hydrocortisone 10 mg tablet See Rx Instructions PO .COMPLEX ADRENAL #270 tabs 11/18/22 [Rx Last Taken Unknown] Allergy/AdvReac Type Severity Reaction Status Date / Time No Known Allergies Allergy Verified 01/31/23 14:28 Family History (Updated 05/05/23 @ 20:[address] Dixie Carlos MD) Mother Skin cancer Cancer Skin and other unknown Sister Cancer Unknown type Father Alzheimer disease Surgical History History of back surgery History of cholecystectomy (~12/2019) Hx of colonoscopy Hx of elbow surgery Hx of heart artery stent Hx of left breast biopsy Social History Smoking Status: Never smoker second hand exposure: No alcohol intake: current alcohol intake frequency: holidays/special occasions only substance use type: does not use caffeine: Yes what type of physical activity do you participate in: none frequency: does not exercise ROS ROS Narrative 10 systems were reviewed with pertinent positives as noted in the HPI above. Physical Exam Const alert and no apparent distress Constitutional Narrative: Confused and disoriented. HEENT normocephalic and head/scalp atraumatic Eyes PERRL and EOMs intact bilaterally Neck supple General: trachea midline Chest inspection of chest normal Resp normal respiratory effort Auscultation: Negative for rales, rhonchi or wheezes Cardio regular rate and regular rhythm GI normal to inspection, nondistended, normoactive bowel sounds Extremity no clubbing, cyanosis or edema Skin no rashes or lesions noted Neuro CN's II-XII intact bilaterally and no focal motor deficits Psych Mood & Affect: flat affect Lab / Micro Data 05/06/23 03:15 05/06/23 03:15 Labs: Laboratory Results - last 24 hr 05/05/23 12:47: WBC 10.1, RBC 4.32 L, Hgb 13.7, Hct 40.6, MCV 94.0, MCH 31.7, MCHC 33.7, RDW Std Deviation 45.8 H, RDW Coeff of Delisa 13.4, Plt Count 195, MPV 10.2, Immature Gran % (Auto) 0.400, Neut % (Auto) 86.9 H, Lymph % (Auto) 6.7 L, Mcpherson % (Auto) 4.9, Eos % (Auto) 0.6, Baso % (Auto) 0.5, Absolute Neuts (auto) 8.8 H, Absolute Lymphs (auto) 0.68 L, Nucleated RBC % 0, PT 15.8 H, INR 1.3, APTT 42.5 H, Sodium 139, Potassium 4.0, Chloride 108 H, Carbon Dioxide 19.0 L, Anion Gap 12, BUN 44 H, Creatinine 5.39 H, Estim Creat Clear Calc 11.10, Est GFR (MDRD) Af Amer 13 L, Est GFR (MDRD) Non-Af 11 L, BUN/Creatinine Ratio 8.2 L, Glucose 121 H, Lactic Acid 4.5 H*, Calcium 8.9, Magnesium 2.4, Total Bilirubin 0.70, AST 185 H, ALT 49, Alkaline Phosphatase 76, Total Creatine Kinase 3226 H, Troponin I High Sens 206 H*, B-Natriuretic Peptide 57.4, Total Protein 6.0 L, Albumin 2.7 L, Globulin 3.3, Albumin/Globulin Ratio 0.8 L, Lipase 29, TSH 0.27 L, Free T4 1.07, Free T3 pg/dL 0.7 L, Urine Color Yellow, Urine Clarity Clear, Urine pH 6.0, Ur Specific [place] 1.010, Urine Protein 30 H, Urine Glucose (UA) Normal, Urine Ketones Negative, Urine Occult Blood 25 H, Urine Nitrite Negative, Urine Bilirubin Negative, Urine Urobilinogen Normal, Ur Leukocyte Esterase Negative, Urine RBC 0 SEEN, Urine WBC 0 SEEN, Ur Squamous Epith Cells 0 SEEN, Urine Bacteria 0 SEEN, Urine Mucus 0 SEEN 05/05/23 13:04: POC Glucose 95 05/05/23 17:50: MRSA (PCR) Negative 05/05/23 18:11: Lactic Acid 1.7, Procalcitonin 4.54 H, Ur Random Sodium 79, Urine Creatinine 145.00 05/05/23 20:20: Troponin I High Sens 153 H* 05/05/23 21:40: D-Dimer Quant (PE/DVT) 3.59 H*, Ferritin 2413 H, Lactate Dehydrogenase 303 H, Troponin I High Sens 150 H*, C-React Prot Ext Range 311.00 H, Procalcitonin 4.35 H 05/06/23 00:32: POC Glucose 103 05/06/23 03:15: WBC 13.6 H, RBC 4.04 L, Hgb 12.4 L, Hct 38.2 L, MCV 94.6 H, MCH 30.7, MCHC 32.5, RDW Std Deviation 46.5 H, RDW Coeff of Delisa 13.5, Plt Count 190, MPV 9.9, Immature Gran % (Auto) 0.700, Neut % (Auto) 92.7 H, Lymph % (Auto) 2.4 L, Mcpherson % (Auto) 3.4, Eos % (Auto) 0.4, Baso % (Auto) 0.4, Absolute Neuts (auto) 12.6 H, Absolute Lymphs (auto) 0.32 L, Nucleated RBC % 0, [place] Cells 1+, Sodium 142, Potassium 4.5, Chloride 114 H, Carbon Dioxide 17.0 L, Anion Gap 11, BUN 47 H, Creatinine 5.00 H, Estim Creat Clear Calc 11.59, Est GFR (MDRD) Af Amer 14 L, Est GFR (MDRD) Non-Af 12 L, BUN/Creatinine Ratio 9.4 L, Glucose 123 H, Calcium 7.7 L, Total Bilirubin 0.70, AST 175 H, ALT 18, Alkaline Phosphatase 65, Total Creatine Kinase 2162 H, Troponin I High Sens 136 H*, Total Protein 5.6 L, Albumin 2.4 L, Globulin 3.2, Albumin/Globulin Ratio 0.8 L, Triglycerides 143, Cholesterol 70, LDL Cholesterol 16, VLDL Cholesterol 29, HDL Cholesterol 25 L Micro: Microbiology 05/05/23 17:50 Mucosa - Nasopharyngeal Coronavirus COVID-19 PCR - Final SARS-CoV-2 (COVID 19) 05/05/23 17:50 Mucosa - Nasopharyngeal Respiratory Panel (PCR) - Final 05/05/23 17:50 Stool C. difficile DNA Amplification - Final 05/05/23 18:11 Urine Catheter - Catheter Legionella Antigen - Final 05/05/23 18:11 Urine Catheter - Catheter Streptococcus pneumoniae Antigen (M - Final ABG Data ABG results: ABG 05/05/23 13:18 Specimen Type ART Sample Site L Radial pH 7.29 L Bicarbonate Actual 15.6 L Total CO2 17 Base Excess -11 L O2 Saturation 100 H O2 % 6.0 ABG pCO2 32.2 L ABG pO2 229 H O2 Delivery Device Not entered Vent Mode Not entered Radiology Impression Brain CT 05/05/23 12:37 IMPRESSION: Chronic involutional changes of the brain. Pansinusitis. Electronically Signed: Luis Fontaine MD at 14:46 EDT , Cervical Spine CT 05/05/23 12:37 IMPRESSION: Multilevel degenerative changes, as described above. Electronically Signed: Luis Fontaine MD at 14:38 EDT , Chest X-Ray 05/05/23 12:37 IMPRESSION: No acute abnormality is seen. Electronically Signed: Luis Fontaine MD at 14:30 EDT , Hip/Pelvis X-Ray 05/05/23 13:07 IMPRESSION: Mild joint space narrowing of the hip joints. No fracture or dislocation is seen. Electronically Signed: Luis Fontaine MD at 14:31 EDT , Renal Ultrasound 05/05/23 16:18 IMPRESSION: 1. Echogenic renal parenchyma suggests possible sequela chronic renal insufficiency and/or medical renal disease. 2. Left-sided renal cyst. Electronically Signed: Yoli Carreon MD at 6:24 EDT , Chest X-Ray 05/05/23 18:00 IMPRESSION: No evidence of pneumothorax status post right central line placement with tip approximately 6 cm proximal to the atrial caval junction. Electronically Signed: Martín Jonas MD at 18:43 EDT , Brain CT 05/06/23 00:50 IMPRESSION: 1. Chronic involutional changes of the brain. 2. Sequela of extensive paranasal sinus surgery. 3. 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 4. No CT evidence of acute intracranial hemorrhage. 5. Findings suggest persistent paranasal sinus disease. Electronically Signed: Yoli Carreon MD at 1:10 EDT , ADDENDUM: 05/06/23 0123 IMPRESSION: 1. Chronic involutional changes of the brain. 2. Sequela of extensive paranasal sinus surgery. 3. 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 4. No CT evidence of acute intracranial hemorrhage. 5. Findings suggest persistent paranasal sinus disease. N.B. : The above Results were Read Back by Yoli Carreon MD to nirali myers DO, and understanding confirmed on 05/06/2023 01:16:23 (ET). Electronically Signed: Yoli Carreon MD at 1:10 EDT Reading Location ID and State: [address] [place] [address] , Service support , Charges/Coding Visit Charges Inpatient E&M: 51779 Init Hosp L3
[2023-05-06 07:49] LABS: Hemoglobin A1c 5.6 % (3.8-5.6)
[2023-05-06] MEDS: Heparin Injection (Vial) 5,000 UNIT/ML VIAL 5000 UNIT SC ×2 (08:42→22:34)
[2023-05-06] MEDS: Piperacil/Tazobactam 3.375 GM in 0.9% Normal Saline (50mL MB+) 50 ML IV ×2 (08:42→22:35)
[2023-05-06] MEDS: Atorvastatin Calcium 20 MG Tablet PO (08:43)
[2023-05-06] MEDS: Aspirin E.C. 81 MG Tablet PO (08:43)
[2023-05-06] MEDS: Escitalopram Oxalate 10 MG Tablet PO (08:43)
[2023-05-06] MEDS: Iron Polysaccharide Complex 150 MG CAPSULE PO (08:43)
[2023-05-06] MEDS: 0.9 % NaCl (Sterile) Posiflush 10 mL IV ×3 (10:54→18:06)
--- NOTE | 2023-05-06 11:13 | PCM.PN.HOSP ---
Reason for Visit Reason for Visit: Diagnoses Shock, unspecified (05/05/23) COVID-19 (05/05/23) Objective Data Objective Data Vital Signs: Vital Signs Temp Pulse Resp BP Pulse Ox O2 Del Method O2 Flow Rate 96.9 F L 63 25 H 94/55 L 99 Room Air 2 05/06/23 08:00 05/06/23 11:00 05/06/23 11:00 05/06/23 11:00 05/06/23 11:00 05/06/23 11:00 05/06/23 10:00 FiO2 16 05/05/23 14:43 Oxygen Flow Rate (L/min) 2 Oxygen Delivery Method Room Air Weight: 174 lb 6.17 oz Body Mass Index (BMI) 25.7 Intake & Output: Intake and Output for Last 24 Hours 05/04/23 05/05/23 05/06/23 23:59 23:59 23:59 Intake Total 2436.40 / 2445.80 2188.59 / 2188.59 Output Total 300 / 300 Balance 2426.40 / 2385.80 1888.59 / 1888.59 Lab / Micro Data 05/06/23 03:15 05/06/23 03:15 Labs: Laboratory Results - last 24 hr 05/05/23 12:47: WBC 10.1, RBC 4.32 L, Hgb 13.7, Hct 40.6, MCV 94.0, MCH 31.7, MCHC 33.7, RDW Std Deviation 45.8 H, RDW Coeff of Deilsa 13.4, Plt Count 195, MPV 10.2, Immature Gran % (Auto) 0.400, Neut % (Auto) 86.9 H, Lymph % (Auto) 6.7 L, [place] % (Auto) 4.9, Eos % (Auto) 0.6, Baso % (Auto) 0.5, Absolute Neuts (auto) 8.8 H, Absolute Lymphs (auto) 0.68 L, Nucleated RBC % 0, PT 15.8 H, INR 1.3, APTT 42.5 H, Sodium 139, Potassium 4.0, Chloride 108 H, Carbon Dioxide 19.0 L, Anion Gap 12, BUN 44 H, Creatinine 5.39 H, Estim Creat Clear Calc 11.10, Est GFR (MDRD) Af Amer 13 L, Est GFR (MDRD) Non-Af 11 L, BUN/Creatinine Ratio 8.2 L, Glucose 121 H, Lactic Acid 4.5 H*, Calcium 8.9, Magnesium 2.4, Total Bilirubin 0.70, AST 185 H, ALT 49, Alkaline Phosphatase 76, Total Creatine Kinase 3226 H, Troponin I High Sens 206 H*, B-Natriuretic Peptide 57.4, Total Protein 6.0 L, Albumin 2.7 L, Globulin 3.3, Albumin/Globulin Ratio 0.8 L, Lipase 29, TSH 0.27 L, Free T4 1.07, Free T3 pg/dL 0.7 L, Urine Color Yellow, Urine Clarity Clear, Urine pH 6.0, Ur Specific Burney 1.010, Urine Protein 30 H, Urine Glucose (UA) Normal, Urine Ketones Negative, Urine Occult Blood 25 H, Urine Nitrite Negative, Urine Bilirubin Negative, Urine Urobilinogen Normal, Ur Leukocyte Esterase Negative, Urine RBC 0 SEEN, Urine WBC 0 SEEN, Ur Squamous Epith Cells 0 SEEN, Urine Bacteria 0 SEEN, Urine Mucus 0 SEEN 05/05/23 13:04: POC Glucose 95 05/05/23 17:50: MRSA (PCR) Negative 05/05/23 18:11: Lactic Acid 1.7, Procalcitonin 4.54 H, Ur Random Sodium 79, Urine Creatinine 145.00 05/05/23 20:20: Troponin I High Sens 153 H* 05/05/23 21:40: D-Dimer Quant (PE/DVT) 3.59 H*, Ferritin 2413 H, Lactate Dehydrogenase 303 H, Troponin I High Sens 150 H*, C-React Prot Ext Range 311.00 H, Procalcitonin 4.35 H 05/06/23 00:32: POC Glucose 103 05/06/23 03:15: WBC 13.6 H, RBC 4.04 L, Hgb 12.4 L, Hct 38.2 L, MCV 94.6 H, MCH 30.7, MCHC 32.5, RDW Std Deviation 46.5 H, RDW Coeff of Delisa 13.5, Plt Count 190, MPV 9.9, Immature Gran % (Auto) 0.700, Neut % (Auto) 92.7 H, Lymph % (Auto) 2.4 L, [place] % (Auto) 3.4, Eos % (Auto) 0.4, Baso % (Auto) 0.4, Absolute Neuts (auto) 12.6 H, Absolute Lymphs (auto) 0.32 L, Nucleated RBC % 0, [place] Cells 1+, Sodium 142, Potassium 4.5, Chloride 114 H, Carbon Dioxide 17.0 L, Anion Gap 11, BUN 47 H, Creatinine 5.00 H, Estim Creat Clear Calc 11.59, Est GFR (MDRD) Af Amer 14 L, Est GFR (MDRD) Non-Af 12 L, BUN/Creatinine Ratio 9.4 L, Glucose 123 H, Hemoglobin A1c 5.6, Calcium 7.7 L, Total Bilirubin 0.70, AST 175 H, ALT 18, Alkaline Phosphatase 65, Total Creatine Kinase 2162 H, Troponin I High Sens 136 H*, Total Protein 5.6 L, Albumin 2.4 L, Globulin 3.2, Albumin/Globulin Ratio 0.8 L, Triglycerides 143, Cholesterol 70, LDL Cholesterol 16, VLDL Cholesterol 29, HDL Cholesterol 25 L Micro: Microbiology 05/05/23 17:50 Mucosa - Nasopharyngeal Coronavirus COVID-19 PCR - Final SARS-CoV-2 (COVID 19) 05/05/23 17:50 Mucosa - Nasopharyngeal Respiratory Panel (PCR) - Final 05/05/23 17:50 Stool C. difficile DNA Amplification - Final 05/05/23 18:11 Urine Catheter - Catheter Legionella Antigen - Final 05/05/23 18:11 Urine Catheter - Catheter Streptococcus pneumoniae Antigen (M - Final ABG Data ABG results: ABG 05/05/23 13:18 Specimen Type ART Sample Site L Radial pH 7.29 L Bicarbonate Actual 15.6 L Total CO2 17 Base Excess -11 L O2 Saturation 100 H O2 % 6.0 ABG pCO2 32.2 L ABG pO2 229 H O2 Delivery Device Not entered Vent Mode Not entered Radiography Diagnostic Testing: Radiology Impression Brain CT 05/05/23 12:37 IMPRESSION: Chronic involutional changes of the brain. Pansinusitis. Electronically Signed: Luis Fontaine MD at 14:46 EDT , Cervical Spine CT 05/05/23 12:37 IMPRESSION: Multilevel degenerative changes, as described above. Electronically Signed: Luis Fontaine MD at 14:38 EDT , Chest X-Ray 05/05/23 12:37 IMPRESSION: No acute abnormality is seen. Electronically Signed: Luis Fontaine MD at 14:30 EDT , Hip/Pelvis X-Ray 05/05/23 13:07 IMPRESSION: Mild joint space narrowing of the hip joints. No fracture or dislocation is seen. Electronically Signed: Luis Fontaine MD at 14:31 EDT , Renal Ultrasound 05/05/23 16:18 IMPRESSION: 1. Echogenic renal parenchyma suggests possible sequela chronic renal insufficiency and/or medical renal disease. 2. Left-sided renal cyst. Electronically Signed: Yoli Carreon MD at 6:24 EDT , Chest X-Ray 05/05/23 18:00 IMPRESSION: No evidence of pneumothorax status post right central line placement with tip approximately 6 cm proximal to the atrial caval junction. Electronically Signed: Martín Jonas MD at 18:43 EDT , Brain CT 05/06/23 00:50 IMPRESSION: 1. Chronic involutional changes of the brain. 2. Sequela of extensive paranasal sinus surgery. 3. 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 4. No CT evidence of acute intracranial hemorrhage. 5. Findings suggest persistent paranasal sinus disease. Electronically Signed: Yoli Carreon MD at 1:10 EDT , ADDENDUM: 05/06/23 0123 IMPRESSION: 1. Chronic involutional changes of the brain. 2. Sequela of extensive paranasal sinus surgery. 3. 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 4. No CT evidence of acute intracranial hemorrhage. 5. Findings suggest persistent paranasal sinus disease. N.B. : The above Results were Read Back by Yoli Carreon MD to nirali myers DO, and understanding confirmed on 05/06/2023 01:16:23 (ET). Electronically Signed: Yoli Carreon MD at 1:10 EDT , Physical Exam Narrative Seen and examined. Patient was not with hypotension, tachypnea, confusion, found Lying on the floor. Patient was on Levophed for very short period of time currently off Levophed. Patient on room air. Patient is talking with guarding but is still slow to understand. Patient is COVID PCR-positive. Patient has mild cough. Denies shortness of breath. Mild cough/choking sensation while drinking water with tingling sensation. Patient complain of burning micturition for last 3 days. Physical exam General: Awake, oriented x3 but slow responding HEENT: Bilateral hard of hearing atraumatic, PERRLA, EOMI, Normocephalic Oral: Oral mucosa dry. No Gingival or Mucosal Lesions/ Ulcerations Neck: Right CVC catheter. Supple, No JVD, Negative Carotid Bruits Lungs: Air entry diminished in bilateral lung bases. Mild bilateral fine wheezing. Cardiovascular: Sinus rhythm rhythm, Normal S1, Normal S2, No murmurs Abdomen: Bowel Sounds Present, Soft, Non Tender, Non-Distended : Thompson catheter, cloudy turbid urine. No renal angle tenderness. No suprapubic tenderness. Extremities: No edema, Capillary Refill Less than 3 Seconds Skin: No rashes, No breakdown Musculoskeletal: No Tenderness to Palpation of Joints or Extremities Neurological: Cranial nerves II-XII grossly intact, DTR 2+/4. No acute focal neurological deficit. Psych/Mental Status: Flat affect. Looks confused. Assessment & Plan Assessment/Plan (1) Shock: PLAN: Plan The patient is an 82 y/o M was admitted to ICU on 05/05/23 for being found on floor of unclear duration, hypoxia 64% on room air, BP 66/37, decreased mentation/AMS but arousable #1. Acute Encephalopathy, Multifactorial, most likely COVID-19 infectious/metabolic encephalopathy: Patient is being admitted in ICU. Continue IV fluid hydration at slow rate. Keep pulse ox more than 90%. Continue IV steroid. MRI brain is done, report not available. 2D echo is ordered. ECHO 12/25/2019 with normal LV systolic function, EF 60%, mildly enlarged LA, mild MVI, trivial TVI, trivial MARIANO, trivial PVI, RVSP 25 mmHg 2. Hypotension, most likely due to intravascular volume depletion/hypovolemia, possibility of acute adrenal insufficiency: Patient on IV Solu-Medrol 50 mg try to wean from tomorrow. Patient is off Levophed today. Patient has a right IJ CVC catheter. Patient on IV empiric antibiotic for suspected pneumonia 3. COVID-19 pneumonia with hypoxemia: Patient has COVID-19 pneumonia. Patient on IV steroid. Does not meet criteria for IV remdesivir. Serial troponin assays shows decreasing trend. Most likely acute myocardial injury from COVID-19 pneumonia due to increased demand. 4. Acute kidney injury and acute rhabdomyolysis: Admission total creatinine kinase 3226 with lactic acidosis, acute kidney injury and transaminitis with elevated AST consistent with acute rhabdomyolysis.Admission BUN/Cr 44/5.39, prior baseline creatinine noted to be primarily 1.4-1.7, most recent 01/31/2023 creatinine 1.72. Monitor kidney function. Avoid nephrotoxic medications #5. Acute liver injury possible due to ischemic hepatitis due to hypotension or infectious viral hepatitis: Admission CMP with T. bili 0.70, AST/LT 185/49, alk phos 76, last AST 01/31/2023 noted to be normal at 20. Monitor liver chemistry #6. Lactic acidosis: Admission lactic acid 4.5, suspect multifactorial with rhabdomyolysis as well as acute kidney injury with respiratory failure, continue slow IV #7. CAD: Status post PCI x 6, continue aspirin, statin, per current list not on beta-nevaeh therapy however given hypotension this will be deferred. #8. 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 ED initiated TSH 0.27 however free T41.07, subclinical. #9. Chronic iron deficiency anemia: Admission hemoglobin 13.7, MCV 94, baseline hemoglobin recently 13-14, stable, continue iron supplementation and CBC trending. #10. Parkinson's disease: We will continue patient home Sinemet regimen, complicates presentation, maintain on fall and aspiration precautions, PT/OT/case management consulted for discharge planning. #11. Anxiety and depression: We will continue patient home escitalopram regimen. #12. Hyperlipidemia: We will continue patient home statin therapy; however, if LFT rises 3x ULN will hold. #13. History ICH: Unclear history of event, current CT of the head with no acute intracranial findings as noted. #14. BPH: Per current list not on regimen, clarifying we will add if appropriate. #15. BENITA: Clarifying if patient uses CPAP nightly. #16. DVT prophylaxis: heparin. #17. CODE status: Patient does not have healthcare power senior attorney or living will but his son is present and they both note that he would be the decision maker. From discussions they are uncertain if living will and is in place. Discussed CODE status at length including difference between FULL code, DNR-CCA and DNR-CC status. Following discussions about the differences in these status, requested DNR-CCA, no intubation but amenable with central line being placed now her ED physician and pressors. Advanced Care Planning Face to Face Time: 16 minutes. Charges/Coding Visit Charges Inpatient E&M: 89958 [facility] L3
--- NOTE | 2023-05-06 14:47 | CASEMGMT ---
DAVID SULLIVAN Face to Face with patient for initial transition planning/care coordination assessment. RN NATE introduced self and role at [facility]. Patient lying in bed, alert and oriented x2, unsure of year.. Patient willing to participate in assessment and is able to answer all questions appropriately. Care providers, pharmacy, and demographics verified. Patient states he has no further needs or concerns at this time. Pt gave permission to call son. TC to son to confirm assessment. CM to follow for discharge planning needs that may arise. PCP:Belinda Specialists:Cardio but pt cannot recall who Preferred Pharmacy:[facility] Retail Insurance:[place] Prescription Benefit: yes LNOK:Colton Marshall, son Living Arrangements:Pt lives alone in a single story home with 3 steps to enter. Pt son lives right next door. Pt reports he is I in ADL's. Pt son does laundry and will bring meals at times. Transportation: Pt does not drive, family transports pt as needed. DME:[employer], grab bars in the bathroom HHC:[facility] HHC in the past SNF:Pt reports [facility], son does not recall that pt was there. Disposition Plan:Pt to go to his home with son's assistance or will move in with son, therapy evals pending- follow for [facility]
--- NOTE | 2023-05-06 16:23 | CPS ---
patient in MRI
[2023-05-06 21:03] LABS: Vancomycin, Random Level 12.3 ug/mL (0.0-15.0)
[2023-05-06] MEDS: Vancomycin Trough/Random Due 1 LAB MC (22:33)
[2023-05-07] VITALS (9 sets, daily range): BP systolic 95–123; BP diastolic 59–72; PULSE 58–62; RESP 16–23; TEMP 36.6–36.9; O2SAT 79–99
--- NOTE | 2023-05-07 00:16 | PCM.RX.CS ---
Consult Antibiotic Management Pharmacy has been consulted to manage selected antiobiotic: Vancomycin Type of Intervention Type of Consult: Follow-up Labs Labs: Sodium 142 mmol/L (136-145) 05/06/23 03:15 Potassium 4.5 mmol/L (3.5-5.1) 05/06/23 03:15 Chloride 114 mmol/L (98-107) H 05/06/23 03:15 Carbon Dioxide 17.0 mmol/L (21.0-32.0) L 05/06/23 03:15 Anion Gap 11 (5-15) 05/06/23 03:15 BUN 47 mg/dL (7-18) H 05/06/23 03:15 Creatinine 5.00 mg/dL (0.70-1.30) H 05/06/23 03:15 Est GFR (MDRD) Af Amer 14 mL/min (>60) L 05/06/23 03:15 Est GFR (MDRD) Non-Af 12 mL/min (>60) L 05/06/23 03:15 BUN/Creatinine Ratio 9.4 RATIO (10-20) L 05/06/23 03:15 Glucose 123 mg/dL (74-106) H 05/06/23 03:15 Random Vancomycin 12.3 ug/mL (0.0-15.0) 05/06/23 16:35 Microbiology Microbiology: Microbiology 05/05/23 17:50 Stool C. difficile DNA Amplification - Final 05/05/23 21:15 Stool Enteric Bacteriology - Final 05/05/23 17:50 Mucosa - Nasopharyngeal Coronavirus COVID-19 PCR - Final SARS-CoV-2 (COVID 19) 05/05/23 17:50 Mucosa - Nasopharyngeal Respiratory Panel (PCR) - Final 05/05/23 18:11 Urine Catheter - Catheter Legionella Antigen - Final 05/05/23 18:11 Urine Catheter - Catheter Streptococcus pneumoniae Antigen (M - Final Pharmacy Plan for Drug Dosing Pharmacy Plan for Drug Dosing: Pharmacy Service will continue to monitor and adjust dosing as required. PATIENT HAS CRCl < 20. 1ST DOSEGIVEN AND RANDOM LEVEL DRAW 12.3. ORDER 1 DOSE 1250MG AND DRAW RANDOM LEVEL 05/08 @ 0600 Follow-Up Labs Follow-Up Labs: Trough: Vancomycin Date/Time Labs Ordered Labs to be done on [date and time ordered]: 05/08 @ 0600
[2023-05-07] MEDS: Vancomycin HCl 1,250 MG in 0.9% Normal Saline (250mL Bag) 250 ML 167 MG IV (00:41)
[2023-05-07] MEDS: 0.9% Normal Saline (250mL Bag) 250 ML 15 ML IV (04:42)
[2023-05-07] MEDS: 0.9% Normal Saline (1000mL) 1,000 ML 125 ML IV (04:42)
[2023-05-07] MEDS: Menthol/Lanolin/Calamine/Znox 113 GM Tube 1 APPLIC TOPICAL ×2 (04:42→21:33)
[2023-05-07] MEDS: Levothyroxine 125 MCG Tablet PO (04:46)
[2023-05-07] MEDS: Hydrocortisone Sod Succinate 100 MG/2 ML Vial 50 MG IV ×2 (04:46→21:22)
[2023-05-07] MEDS: 0.9 % NaCl (Sterile) Posiflush 10 mL IV (04:46)
[2023-05-07] MEDS: Carbidopa/Levodopa 25/100 Tablet PO ×3 (04:46→21:16)
[2023-05-07 05:02] LABS: Absolute Lymphocyte Count 0.38 X10^3/uL (0.83-4.51); Basophil# 0.01 X10^3/uL; Basophil% 0.1 % (0-1); Hematocrit 30.4 % (40-54); Hemoglobin 9.8 g/dL (13.0-16.5); Lymphocyte # 0.38 X10^3/ul (0.83-4.51); Lymphocyte % 2.9 % (19-41); Mean Corp Hgb Conc 32.2 g/dL (32-36); Mean Corpuscular Hgb 30.3 pg (27.0-32.0); Mean Corpuscular Volume 94.1 fL (80-94); Mean Platelet Vol. 9.6 fl (6.2-12.0); Monocyte# 0.43 X10^3/uL; Monocyte% 3.3 % (0-10); NRBC Flagged by Analyzer 0 % (0-5); Neutrophil # 12.04 X10^3/uL (2.7-7.7); Neutrophil % 92.6 % (47-70); POSITIVE DIFFERENTIAL YES; POSITIVE MORPHOLOGY YES; Platelet Count 154 K/mm3 (150-450); RBC Distribution Width CV 13.7 % (11.6-14.6); Red Blood Count 3.23 M/mm3 (4.6-6.2)
[2023-05-07 05:10] LABS: Differential Indicated SCAN CRITERIA MET
[2023-05-07 05:40] LABS: Anion Gap 10 (5-15); BUN 56 mg/dL (7-18); BUN/Creat Ratio 10.8 RATIO (10-20); CPK Total, Creatine Kinase 812 U/L (39-308); Calcium,Total 7.3 mg/dL (8.5-10.1); Chloride 119 mmol/L (98-107); Creatinine, Serum 5.18 mg/dL (0.70-1.30); EST Glomerular Filtration Rate 11 mL/min (>60); Est Glom Filt Rate - Afr Amer 14 mL/min (>60); Estimated Creatinine Clearance 11.18 ml/min; Glucose 126 mg/dL (74-106); Potassium 3.9 mmol/L (3.5-5.1); Sodium Level 144 mmol/L (136-145)
--- NOTE | 2023-05-07 06:02 | PCM.PN.INT ---
Assessment & Plan Assessment/Plan (1) Shock: (2) COVID-19: PLAN: Plan RECOMMENDATIONS: 1. Stop continuous IV fluids. 2. Start to wean stress dose steroids as ordered. 3. Continue empiric antimicrobials. 4. Encourage incentive spirometer use and mobilize patient as tolerated. IMPRESSIONS: 1. Hypotension The patient initially presented to the hospital in encephalopathic state with associated hypotension and hypoxemia. His presenting hypotension was likely the consequence of intravascular volume depletion coupled with potential adrenal insufficiency. He did receive supplemental IV fluid hydration and stress dose steroids, but was only transiently on Levophed. Given the patient's hemodynamic stability, we will plan to stop continuous IV fluids and start to wean stress dose steroids. 2. Encephalopathy Likely related to presenting infection with COVID-19 pneumonia. The patient does have Parkinson's disease with questionable dementia. He is alert and appropriate at the present time. Plan to continue to monitor the patient clinically. 3. Hypoxemia/COVID-19 pneumonia Likely secondary to underlying COVID-19 pneumonia. In addition, the patient has an apparent history of obstructive sleep apnea and is supposed to be utilizing outpatient nocturnal PAP therapy. Recommend continuing nocturnal PAP therapy along with supplemental oxygen to maintain saturations at or above 90%. 4. Acute kidney injury/rhabdomyolysis Likely prerenal in etiology. Rhabdomyolysis has improved with volume resuscitation. Recommend consultation to nephrology if creatinine remains elevated. 5. NSTEMI/history of coronary artery disease Most likely secondary to demand ischemia in the setting of the above. 6. History of pituitary macroadenoma status postresection/hypothyroidism/anemia/Parkinson's disease/obstructive sleep apnea Complicates care, management, recovery and prognosis. Initiate nocturnal PAP therapy per home regimen. Continue baseline home medications as indicated. This note was generated with [employer] dictation software. It may contain incorrect words, spelling, and punctuation that were not noted in checking the note before signing. Subjective Subjective The patient was seen and examined at the bedside this morning. Events from the last 24 hours have been reviewed. The patient is currently afebrile, hemodynamically stable and maintaining appropriate oxygen saturations on room air. The patient is documented to be overall net +6.2 L for the hospitalization. Creatinine remains elevated at 5.18. Total CK has decreased to 812. The patient remains confused. Objective Data Objective Data The patient's most recent lab work, culture data and imaging studies have all been personally reviewed. COVID PCR was positive on May 05. Vital Signs: Vital Signs Temp Pulse Resp BP Pulse Ox O2 Del Method O2 Flow Rate 97.8 F 60 23 H 95/59 L 98 Room Air 2 05/07/23 00:00 05/07/23 00:00 05/07/23 00:00 05/07/23 00:00 05/07/23 00:00 05/07/23 00:00 05/06/23 10:00 FiO2 16 05/05/23 14:43 Oxygen Flow Rate (L/min) 2 Oxygen Delivery Method Room Air Weight: 174 lb 6.17 oz Body Mass Index (BMI) 25.7 Intake & Output: Intake and Output for Last 24 Hours 05/05/23 05/06/23 05/07/23 23:59 23:59 23:59 Intake Total 2436.40 / 2445.80 3358.59 / 3358.59 1152.08 / 1152.08 Output Total 575 / 675 100 / 100 Balance 2426.40 / 2385.80 2783.59 / 2683.59 1052.08 / 1052.08 Lab / Micro Data Attestation: I reviewed the patient's lab results. 05/07/23 04:50 05/07/23 04:50 Labs: Laboratory Results - last 24 hr 05/06/23 03:15: Hemoglobin A1c 5.6 05/06/23 16:35: Random Vancomycin 12.3 05/07/23 04:50: WBC 13.0 H, RBC 3.23 L, Hgb 9.8 L, Hct 30.4 L, MCV 94.1 H, MCH 30.3, MCHC 32.2, RDW Std Deviation 47.0 H, RDW Coeff of Delisa 13.7, Plt Count 154, MPV 9.6, Immature Gran % (Auto) 1.100 H, Neut % (Auto) 92.6 H, Lymph % (Auto) 2.9 L, [place] % (Auto) 3.3, Eos % (Auto) 0.0, Baso % (Auto) 0.1, Absolute Neuts (auto) 12.0 H, Absolute Lymphs (auto) 0.38 L, Nucleated RBC % 0, Sodium 144, Potassium 3.9, Chloride 119 H, Carbon Dioxide 15.0 L, Anion Gap 10, BUN 56 H, Creatinine 5.18 H, Estim Creat Clear Calc 11.18, Est GFR (MDRD) Af Amer 14 L, Est GFR (MDRD) Non-Af 11 L, BUN/Creatinine Ratio 10.8, Glucose 126 H, Calcium 7.3 L, Total Creatine Kinase 812 H Micro: Microbiology 05/05/23 17:50 Stool C. difficile DNA Amplification - Final 05/05/23 21:15 Stool Enteric Bacteriology - Final 05/05/23 17:50 Mucosa - Nasopharyngeal Coronavirus COVID-19 PCR - Final SARS-CoV-2 (COVID 19) 05/05/23 17:50 Mucosa - Nasopharyngeal Respiratory Panel (PCR) - Final 05/05/23 18:11 Urine Catheter - Catheter Legionella Antigen - Final 05/05/23 18:11 Urine Catheter - Catheter Streptococcus pneumoniae Antigen (M - Final Radiography Diagnostic Testing: Radiology Impression Renal Ultrasound 05/05/23 16:18 IMPRESSION: 1. Echogenic renal parenchyma suggests possible sequela chronic renal insufficiency and/or medical renal disease. 2. Left-sided renal cyst. Electronically Signed: Yoli Carreon MD at 6:24 EDT Reading Location ID and State: [facility] / [place] , Service support , Brain MRI 05/06/23 03:27 IMPRESSION: 1. Fluid level in the left maxillary sinus and sphenoid sinuses unchanged since prior CT. 2. Chronic small vessel ischemic/degenerative changes. 3. Cerebral and cerebellar atrophy. 4. No acute intracranial abnormality. Electronically Signed: Alex Magdaleno MD at 18:46 EDT , Chest X-Ray 05/06/23 05:40 IMPRESSION: No radiographic evidence of acute cardiopulmonary disease. Electronically Signed: Shefali Beard MD at 17:37 EDT Reading Location ID and State: [id number] / Tel , Service support , Physical Exam Const alert and no apparent distress Constitutional Narrative: Pleasantly confused. HEENT normocephalic and head/scalp atraumatic Eyes PERRL and EOMs intact bilaterally Neck supple General: trachea midline Chest inspection of chest normal Resp normal respiratory effort Auscultation: Negative for rales, rhonchi or wheezes Cardio regular rate and regular rhythm GI normal to inspection, nondistended, normoactive bowel sounds Extremity no clubbing, cyanosis or edema Skin no rashes or lesions noted Neuro CN's II-XII intact bilaterally and no focal motor deficits Psych Mood & Affect: flat affect Charges/Coding Visit Charges Inpatient E&M: 36494 Subs Hosp L2
[2023-05-07 06:41] LABS: Differential Comment SCANNED
[2023-05-07] MEDS: Budesonide Respules 0.5 MG/2 ML AMPUL.NEB. INHALATION ×2 (07:19→20:11)
[2023-05-07] MEDS: Iron Polysaccharide Complex 150 MG CAPSULE PO (09:32)
[2023-05-07] MEDS: Heparin Injection (Vial) 5,000 UNIT/ML VIAL 5000 UNIT SC ×2 (10:50→21:15)
[2023-05-07] MEDS: Piperacil/Tazobactam 3.375 GM in 0.9% Normal Saline (50mL MB+) 50 ML IV ×2 (10:50→21:21)
[2023-05-07] MEDS: Escitalopram Oxalate 10 MG Tablet PO (10:50)
[2023-05-07] MEDS: Atorvastatin Calcium 20 MG Tablet PO (10:50)
[2023-05-07] MEDS: Aspirin E.C. 81 MG Tablet PO (10:51)
--- NOTE | 2023-05-07 14:59 | PCM.PN.HOSP ---
Reason for Visit Reason for Visit: Diagnoses Shock, unspecified (05/05/23) COVID-19 (05/05/23) Objective Data Objective Data Vital Signs: Vital Signs Temp Pulse Resp BP Pulse Ox O2 Del Method O2 Flow Rate 98.2 F 59 L 16 122/72 H 99 Room Air 2 05/07/23 09:00 05/07/23 09:00 05/07/23 09:00 05/07/23 09:00 05/07/23 12:48 05/07/23 09:00 05/06/23 10:00 FiO2 16 05/05/23 14:43 Oxygen Flow Rate (L/min) 2 Oxygen Delivery Method Room Air Weight: 174 lb 6.17 oz Body Mass Index (BMI) 25.7 Intake & Output: Intake and Output for Last 24 Hours 05/05/23 05/06/23 05/07/23 23:59 23:59 23:59 Intake Total 2436.40 / 2445.80 3358.59 / 3358.59 1629.16 / 1629.16 Output Total 575 / 675 360 / 360 Balance 2426.40 / 2385.80 2783.59 / 2683.59 1269.16 / 1269.16 Lab / Micro Data 05/07/23 04:50 05/07/23 04:50 Labs: Laboratory Results - last 24 hr 05/06/23 16:35: Random Vancomycin 12.3 05/07/23 04:50: WBC 13.0 H, RBC 3.23 L, Hgb 9.8 L, Hct 30.4 L, MCV 94.1 H, MCH 30.3, MCHC 32.2, RDW Std Deviation 47.0 H, RDW Coeff of Delisa 13.7, Plt Count 154, MPV 9.6, Immature Gran % (Auto) 1.100 H, Neut % (Auto) 92.6 H, Lymph % (Auto) 2.9 L, Ingham % (Auto) 3.3, Eos % (Auto) 0.0, Baso % (Auto) 0.1, Absolute Neuts (auto) 12.0 H, Absolute Lymphs (auto) 0.38 L, Nucleated RBC % 0, Differential Comment SCANNED, Sodium 144, Potassium 3.9, Chloride 119 H, Carbon Dioxide 15.0 L, Anion Gap 10, BUN 56 H, Creatinine 5.18 H, Estim Creat Clear Calc 11.18, Est GFR (MDRD) Af Amer 14 L, Est GFR (MDRD) Non-Af 11 L, BUN/Creatinine Ratio 10.8, Glucose 126 H, Calcium 7.3 L, Total Creatine Kinase 812 H Micro: Microbiology 05/05/23 13:15 Blood Culture (Wb) - Anticubital Left Blood Culture - Preliminary No growth in 48 hours. 05/05/23 12:47 Blood Culture (Wb) - Anticubital Right Blood Culture - Preliminary No growth in 48 hours. 05/05/23 12:47 Urine, Catheterized Urine Culture - Preliminary GPC Poss Enterococcus sp 05/05/23 17:50 Stool C. difficile DNA Amplification - Final 05/05/23 21:15 Stool Enteric Bacteriology - Final 05/05/23 17:50 Mucosa - Nasopharyngeal Coronavirus COVID-19 PCR - Final SARS-CoV-2 (COVID 19) 05/05/23 17:50 Mucosa - Nasopharyngeal Respiratory Panel (PCR) - Final 05/05/23 18:11 Urine Catheter - Catheter Legionella Antigen - Final 05/05/23 18:11 Urine Catheter - Catheter Streptococcus pneumoniae Antigen (M - Final Radiography Diagnostic Testing: Radiology Impression Echocardiogram 05/05/23 17:24 Interpretation Summary The estimated ejection fraction is 55 %. No evidence for diastolic dysfunction. Trivial mitral valve insufficiency. Ordering Physician: Dixie Carlos Referring Physician: García Trevino MD Performed By: Lexie Deleon, RDCS Brain MRI 05/06/23 03:27 IMPRESSION: 1. Fluid level in the left maxillary sinus and sphenoid sinuses unchanged since prior CT. 2. Chronic small vessel ischemic/degenerative changes. 3. Cerebral and cerebellar atrophy. 4. No acute intracranial abnormality. Electronically Signed: Alex Magdaleno MD at 18:46 EDT , Chest X-Ray 05/06/23 05:40 IMPRESSION: No radiographic evidence of acute cardiopulmonary disease. Electronically Signed: Shefali Beard MD at 17:37 EDT Reading Location ID and State: [id number] / Tel , Service support , Physical Exam Narrative Seen and examined. Patient is awake and alert. No fever. Urine is still dark. Physical exam General: Awake, oriented x3 responding to verbal appropriately. HEENT: Bilateral hard of hearing atraumatic, PERRLA, EOMI, Normocephalic Oral: Oral mucosa dry. No Gingival or Mucosal Lesions/ Ulcerations Neck: Right CVC catheter. Supple, No JVD, Negative Carotid Bruits Lungs: Air entry diminished in bilateral lung bases. Mild bilateral fine wheezing. Cardiovascular: Sinus rhythm rhythm, Normal S1, Normal S2, No murmurs Abdomen: Bowel Sounds Present, Soft, Non Tender, Non-Distended : Thompson catheter, cloudy turbid urine. No renal angle tenderness. No suprapubic tenderness. Extremities: No edema, Capillary Refill Less than 3 Seconds Skin: No rashes, No breakdown Musculoskeletal: No Tenderness to Palpation of Joints or Extremities Neurological: Cranial nerves II-XII grossly intact, DTR 2+/4. No acute focal neurological deficit. Psych/Mental Status: Flat affect. Looks confused. Assessment & Plan Assessment/Plan (1) Shock: PLAN: Plan The patient is an 82 y/o M was admitted to ICU on 05/05/23 for being found on floor of unclear duration, hypoxia 64% on room air, BP 66/37, decreased mentation/AMS but arousable Patient complain of burning micturition for last 3 days. #1. Acute Encephalopathy, Multifactorial, most likely COVID-19 infectious/metabolic encephalopathy: Patient is being admitted in ICU. Continue IV fluid hydration at slow rate. Keep pulse ox more than 90%. Continue IV steroid. MRI brain is done, report not available. 2D echo is ordered. ECHO 12/25/2019 with normal LV systolic function, EF 60%, mildly enlarged LA, mild MVI, trivial TVI, trivial MARIANO, trivial PVI, RVSP 25 mmHg TSH and free T3 low but free T4 normal possible euthyroid sick syndrome. 2. Hypotension, most likely due to intravascular volume depletion/hypovolemia, possibility of acute adrenal insufficiency: Patient on IV Solu-Medrol 50 mg try to wean from tomorrow. Patient is off Levophed today. Patient has a right IJ CVC catheter. Patient on IV empiric antibiotic for suspected pneumonia. Patient was on Levophed for very short period of time currently off Levophed. 3. COVID-19 pneumonia with hypoxemia: Patient has COVID-19 pneumonia. Patient on IV steroid. Does not meet criteria for IV remdesivir. Serial troponin assays shows decreasing trend. Most likely acute myocardial injury from COVID-19 pneumonia due to increased demand. Patient is COVID PCR-positive. Patient has mild cough. Denies shortness of breath. Mild cough/choking sensation while drinking water with tingling sensation. 05/07:Today for follow-up. 4. Acute kidney injury and acute rhabdomyolysis: Admission total creatinine kinase 3226 with lactic acidosis, acute kidney injury and transaminitis with elevated AST consistent with acute rhabdomyolysis.Admission BUN/Cr 44/5.39, prior baseline creatinine noted to be primarily 1.4-1.7, most recent 01/31/2023 creatinine 1.72. Monitor kidney function. Avoid nephrotoxic medications 05/07: Creatinine is still high 5.1. CPK level 812. Urine output about 600 mL yesterday and 360 mill since midnight. Urine is turbid looking. Urine culture shows GPC possible Enterococcus less than 1000 therefore UTI ruled out. #5. Acute liver injury possible due to ischemic hepatitis due to hypotension or infectious viral hepatitis: Admission CMP with T. bili 0.70, AST/LT 185/49, alk phos 76, last AST 01/31/2023 noted to be normal at 20. Monitor liver chemistry #6. Lactic acidosis: Admission lactic acid 4.5, suspect multifactorial with rhabdomyolysis as well as acute kidney injury with respiratory failure, continue slow IV #7. CAD: Status post PCI x 6, continue aspirin, statin, per current list not on beta-nevaeh therapy however given hypotension this will be deferred. #8. 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 ED initiated TSH 0.27 however free T41.07, subclinical. #9. Chronic iron deficiency anemia: Admission hemoglobin 13.7, MCV 94, baseline hemoglobin recently 13-14, stable, continue iron supplementation and CBC trending. #10. Parkinson's disease: We will continue patient home Sinemet regimen, complicates presentation, maintain on fall and aspiration precautions, PT/OT/case management consulted for discharge planning. #11. Anxiety and depression: We will continue patient home escitalopram regimen. #12. Hyperlipidemia: We will continue patient home statin therapy; however, if LFT rises 3x ULN will hold. #13. History ICH: Unclear history of event, current CT of the head with no acute intracranial findings as noted. #14. BPH: Per current list not on regimen, clarifying we will add if appropriate. #15. BENITA: Clarifying if patient uses CPAP nightly. #16. DVT prophylaxis: heparin. #17. CODE status: Patient does not have healthcare [employer] attorney or living will but his son is present and they both note that he would be the decision maker. From discussions they are uncertain if living will and is in place. Discussed CODE status at length including difference between FULL code, DNR-CCA and DNR-CC status. Following discussions about the differences in these status, requested DNR-CCA, no intubation but amenable with central line being placed now her ED physician and pressors. Advanced Care Planning Face to Face Time: 16 minutes. Charges/Coding Visit Charges Inpatient E&M: 601[address] [facility] L3
--- NOTE | 2023-05-07 15:24 | CASEMGMT ---
Social Work As per daughter, son is POA. SW asked to have the POA papers brought in so they can be put on the chart. Daughter states understanding. ANA Brody
--- NOTE | 2023-05-07 15:25 | CASEMGMT ---
Social Work As per PT, pt needing a lot of assist, cannot manage at home, needs placement. SW called son Colton. SW explained to Colton pt is needing a lot of assist at present with movement, and it is anticipated he will need SNF placement. Son states understanding. SW educated the son to the correction referral process, that SW has a list of SNFs in network w/pt's insurance. He is not able to come in to get the list as he has COVID, but states his sister will be here today. SW will leave the list for her. Pt's daughter Ruby is actually here now. SW spoke to Ruby about pt needing SNF placement for rehab, as needing the assist of two people at present. SW gave Ruby a list of shelter facilities via [employer] in network w/pt's insurance, in pt's preferred geographic area, and complete with quality and resource use data. SW explained spoke to Colton also, and explained asking family to pick a good 3-4 places as pt has COVID so not sure which facilities would consider taking him and which wouldn't. Daughter asked for TCU if possible. SW explained will make the referral. She also states if he starts moving better, someone is always with him at home. SW explained if pt does start moving better we can always look at him going home w/family, will need to see how he does over the next couple of days. Daughter states understanding. SW will make referral to TCU when medically appropriate, will follow up w/family for additional choices on Tuesday. ANA Brody
[2023-05-08] VITALS (9 sets, daily range): BP systolic 100–141; BP diastolic 52–82; PULSE 59–66; RESP 15–26; TEMP 36.4–36.8; O2SAT 88–100; BMI 26.4
[2023-05-08] MEDS: Carbidopa/Levodopa 25/100 Tablet PO ×3 (04:34→23:21)
[2023-05-08] MEDS: Menthol/Lanolin/Calamine/Znox 113 GM Tube 1 APPLIC TOPICAL ×2 (04:34→15:06)
[2023-05-08] MEDS: Vancomycin Trough/Random Due 1 LAB MC (04:34)
[2023-05-08] MEDS: 0.9 % NaCl (Sterile) Posiflush 10 mL IV (04:35)
[2023-05-08] MEDS: Levothyroxine 125 MCG Tablet PO (04:35)
[2023-05-08 05:25] LABS: Vancomycin, Random Level 21.6 ug/mL (0.0-15.0)
--- NOTE | 2023-05-08 05:53 | PCM.PN.INT ---
Assessment & Plan Assessment/Plan (1) Shock: (2) COVID-19: PLAN: Plan RECOMMENDATIONS: 1. Antibiotics can likely be discontinued from my perspective. 2. Continue to wean stress dose steroids. 3. Supplemental oxygen, if needed, to maintain saturations at or above 90%. 4. Encourage incentive spirometer use and mobilize patient as tolerated. IMPRESSIONS: 1. Hypotension The patient initially presented to the hospital in encephalopathic state with associated hypotension and hypoxemia. His presenting hypotension was likely the consequence of intravascular volume depletion coupled with potential adrenal insufficiency. He did receive supplemental IV fluid hydration and stress dose steroids, but was only transiently on Levophed. Given the patient's hemodynamic stability, we will plan to wean stress dose steroids. 2. Encephalopathy Likely related to presenting infection with COVID-19 pneumonia. The patient does have Parkinson's disease with questionable dementia. He is alert and appropriate at the present time. Plan to continue to monitor the patient clinically. 3. Hypoxemia/COVID-19 pneumonia Likely secondary to underlying COVID-19 pneumonia. In addition, the patient has an apparent history of obstructive sleep apnea and is supposed to be utilizing outpatient nocturnal PAP therapy. Recommend continuing nocturnal PAP therapy along with supplemental oxygen to maintain saturations at or above 90%. 4. Acute kidney injury/rhabdomyolysis Likely prerenal in etiology. Rhabdomyolysis has improved with volume resuscitation. Recommend consultation to nephrology if creatinine remains elevated. 5. NSTEMI/history of coronary artery disease Most likely secondary to demand ischemia in the setting of the above. 6. History of pituitary macroadenoma status postresection/hypothyroidism/anemia/Parkinson's disease/obstructive sleep apnea Complicates care, management, recovery and prognosis. Initiate nocturnal PAP therapy per home regimen. Continue baseline home medications as indicated. This note was generated with [employer] dictation software. It may contain incorrect words, spelling, and punctuation that were not noted in checking the note before signing. Subjective Subjective The patient was seen and examined at the bedside this morning. Events from the last 24 hours have been reviewed. The patient is currently afebrile, hemodynamically stable and maintaining appropriate oxygen saturations on 2 L/min via nasal cannula. No overnight events were noted by the nursing staff. Objective Data Objective Data The patient's most recent lab work, culture data and imaging studies have all been personally reviewed. COVID PCR was positive on May 05. Vital Signs: Vital Signs Temp Pulse Resp BP Pulse Ox O2 Del Method O2 Flow Rate 98.2 F 58 L 20 H 123/62 H 99 Nasal Cannula 2 05/07/23 22:00 05/07/23 22:00 05/07/23 22:00 05/07/23 22:00 05/07/23 22:00 05/07/23 22:00 05/07/23 22:00 FiO2 16 05/05/23 14:43 Oxygen Flow Rate (L/min) 2 Oxygen Delivery Method Nasal Cannula Weight: 178 lb 2.136 oz Body Mass Index (BMI) 26.4 Intake & Output: Intake and Output for Last 24 Hours 05/06/23 05/07/23 05/08/23 23:59 23:59 23:59 Intake Total 3358.59 / 3358.59 2029.16 / 202.16 50 / 50 Output Total 575 / 675 710 / 710 100 / 100 Balance 2783.59 / 2683.59 1319.16 / 1319.16 -50 / -50 Lab / Micro Data Attestation: I reviewed the patient's lab results. 05/07/23 04:50 05/07/23 04:50 Labs: Laboratory Results - last 24 hr 05/07/23 04:50: Differential Comment SCANNED 05/08/23 04:40: Random Vancomycin 21.6 H Micro: Microbiology 05/05/23 13:15 Blood Culture (Wb) - Anticubital Left Blood Culture - Preliminary No growth in 48 hours. 05/05/23 12:47 Blood Culture (Wb) - Anticubital Right Blood Culture - Preliminary No growth in 48 hours. 05/05/23 12:47 Urine, Catheterized Urine Culture - Preliminary GPC Poss Enterococcus sp 05/05/23 17:50 Stool C. difficile DNA Amplification - Final 05/05/23 21:15 Stool Enteric Bacteriology - Final 05/05/23 17:50 Mucosa - Nasopharyngeal Coronavirus COVID-19 PCR - Final SARS-CoV-2 (COVID 19) 05/05/23 17:50 Mucosa - Nasopharyngeal Respiratory Panel (PCR) - Final 05/05/23 18:11 Urine Catheter - Catheter Legionella Antigen - Final 05/05/23 18:11 Urine Catheter - Catheter Streptococcus pneumoniae Antigen (M - Final Radiography Diagnostic Testing: Radiology Impression Echocardiogram 05/05/23 17:24 Interpretation Summary The estimated ejection fraction is 55 %. No evidence for diastolic dysfunction. Trivial mitral valve insufficiency. Ordering Physician: Dixie Carlos Referring Physician: García Trevino MD Performed By: Lexie Deleon RDCS Physical Exam Const alert and no apparent distress Constitutional Narrative: Remains confused. HEENT normocephalic and head/scalp atraumatic Eyes PERRL and EOMs intact bilaterally Neck supple General: trachea midline Chest inspection of chest normal Resp normal respiratory effort Auscultation: Negative for rales, rhonchi or wheezes Cardio regular rate and regular rhythm GI normal to inspection, nondistended, normoactive bowel sounds Extremity no clubbing, cyanosis or edema Skin no rashes or lesions noted Neuro CN's II-XII intact bilaterally and no focal motor deficits Psych Mood & Affect: flat affect Charges/Coding Visit Charges Inpatient E&M: 98731 [facility]s [facility]osp L2
--- NOTE | 2023-05-08 06:17 | PCM.RX.CS ---
Consult Antibiotic Management Pharmacy has been consulted to manage selected antiobiotic: Vancomycin Type of Intervention Type of Consult: Follow-up Labs Labs: Sodium 144 mmol/L (136-145) 05/07/23 04:50 Potassium 3.9 mmol/L (3.5-5.1) 05/07/23 04:50 Chloride 119 mmol/L (98-107) H 05/07/23 04:50 Carbon Dioxide 15.0 mmol/L (21.0-32.0) L 05/07/23 04:50 Anion Gap 10 (5-15) 05/07/23 04:50 BUN 56 mg/dL (7-18) H 05/07/23 04:50 Creatinine 5.18 mg/dL (0.70-1.30) H 05/07/23 04:50 Est GFR (MDRD) Af Amer 14 mL/min (>60) L 05/07/23 04:50 Est GFR (MDRD) Non-Af 11 mL/min (>60) L 05/07/23 04:50 BUN/Creatinine Ratio 10.8 RATIO (10-20) 05/07/23 04:50 Glucose 126 mg/dL (74-106) H 05/07/23 04:50 Random Vancomycin 21.6 ug/mL (0.0-15.0) H 05/08/23 04:40 Microbiology Microbiology: Microbiology 05/05/23 13:15 Blood Culture (Wb) - Anticubital Left Blood Culture - Preliminary No growth in 48 hours. 05/05/23 12:47 Blood Culture (Wb) - Anticubital Right Blood Culture - Preliminary No growth in 48 hours. 05/05/23 12:47 Urine, Catheterized Urine Culture - Preliminary GPC Poss Enterococcus sp 05/05/23 17:50 Stool C. difficile DNA Amplification - Final 05/05/23 21:15 Stool Enteric Bacteriology - Final 05/05/23 17:50 Mucosa - Nasopharyngeal Coronavirus COVID-19 PCR - Final SARS-CoV-2 (COVID 19) 05/05/23 17:50 Mucosa - Nasopharyngeal Respiratory Panel (PCR) - Final 05/05/23 18:11 Urine Catheter - Catheter Legionella Antigen - Final 05/05/23 18:11 Urine Catheter - Catheter Streptococcus pneumoniae Antigen (M - Final Pharmacy Plan for Drug Dosing Pharmacy Plan for Drug Dosing: Pharmacy Service will continue to monitor and adjust dosing as required. RANDOM LEVEL 21.6. REORDER RANDOM LEVEL FOR 05/08 @ 0600 Follow-Up Labs Follow-Up Labs: Trough: Vancomycin Date/Time Labs Ordered Labs to be done on [date and time ordered]: 05/09 @ 0600
[2023-05-08] MEDS: Budesonide Respules 0.5 MG/2 ML AMPUL.NEB. INHALATION ×2 (09:07→19:48)
[2023-05-08] MEDS: Escitalopram Oxalate 10 MG Tablet PO (10:04)
[2023-05-08] MEDS: Aspirin E.C. 81 MG Tablet PO (10:04)
[2023-05-08] MEDS: Heparin Injection (Vial) 5,000 UNIT/ML VIAL 5000 UNIT SC ×2 (10:05→23:22)
[2023-05-08] MEDS: Atorvastatin Calcium 20 MG Tablet PO (10:05)
[2023-05-08] MEDS: Hydrocortisone Sod Succinate 100 MG/2 ML Vial 50 MG IV (10:05)
[2023-05-08] MEDS: Piperacil/Tazobactam 3.375 GM in 0.9% Normal Saline (50mL MB+) 50 ML IV (10:06)
--- NOTE | 2023-05-08 13:23 | PCM.PN.HOSP ---
Reason for Visit Reason for Visit: Diagnoses Shock, unspecified (05/05/23) COVID-19 (05/05/23) Objective Data Objective Data Vital Signs: Vital Signs Temp Pulse Resp BP Pulse Ox O2 Del Method O2 Flow Rate 97.7 F L 59 L 20 H 141/74 H 100 Nasal Cannula 2 05/08/23 10:00 05/08/23 10:00 05/08/23 10:00 05/08/23 10:00 05/08/23 10:00 05/08/23 10:00 05/08/23 10:00 FiO2 16 05/05/23 14:43 Oxygen Flow Rate (L/min) 2 Oxygen Delivery Method Nasal Cannula Weight: 178 lb 2.136 oz Body Mass Index (BMI) 26.4 Intake & Output: Intake and Output for Last 24 Hours 05/06/23 05/07/23 05/08/23 23:59 23:59 23:59 Intake Total 3358.59 / 3358.59 2029.16 / 2029.16 50 / 50 Output Total 575 / 675 710 / 710 100 / 100 Balance 2783.59 / 2683.59 1319.16 / 1319.16 -50 / -50 Lab / Micro Data 05/07/23 04:50 05/07/23 04:50 Labs: Laboratory Results - last 24 hr 05/08/23 04:40: Random Vancomycin 21.6 H Micro: Microbiology 05/05/23 12:47 Urine, Catheterized Urine Culture - Final Enterococcus faecalis 05/05/23 13:15 Blood Culture (Wb) - Anticubital Left Blood Culture - Preliminary No growth in 48 hours. 05/05/23 12:47 Blood Culture (Wb) - Anticubital Right Blood Culture - Preliminary No growth in 48 hours. 05/05/23 17:50 Stool C. difficile DNA Amplification - Final 05/05/23 21:15 Stool Enteric Bacteriology - Final 05/05/23 17:50 Mucosa - Nasopharyngeal Coronavirus COVID-19 PCR - Final SARS-CoV-2 (COVID 19) 05/05/23 17:50 Mucosa - Nasopharyngeal Respiratory Panel (PCR) - Final 05/05/23 18:11 Urine Catheter - Catheter Legionella Antigen - Final 05/05/23 18:11 Urine Catheter - Catheter Streptococcus pneumoniae Antigen (M - Final Physical Exam Narrative Seen and examined. Patient is awake and alert. No fever. Urine is still dark. Physical exam General: Awake, oriented x3 responding to verbal appropriately. HEENT: Bilateral hard of hearing atraumatic, PERRLA, EOMI, Normocephalic Oral: Oral mucosa dry. No Gingival or Mucosal Lesions/ Ulcerations Neck: Right CVC catheter. Supple, No JVD, Negative Carotid Bruits Lungs: Air entry diminished in bilateral lung bases. Mild bilateral fine wheezing. Cardiovascular: Sinus rhythm rhythm, Normal S1, Normal S2, No murmurs Abdomen: Bowel Sounds Present, Soft, Non Tender, Non-Distended : Thompson catheter, cloudy turbid urine. No renal angle tenderness. No suprapubic tenderness. Extremities: No edema, Capillary Refill Less than 3 Seconds Skin: No rashes, No breakdown Musculoskeletal: No Tenderness to Palpation of Joints or Extremities Neurological: Cranial nerves II-XII grossly intact, DTR 2+/4. No acute focal neurological deficit. Psych/Mental Status: Flat affect. Looks confused. Assessment & Plan Assessment/Plan (1) Shock: PLAN: Plan The patient is an 82 y/o M was admitted to ICU on 05/05/23 for being found on floor of unclear duration, hypoxia 64% on room air, BP 66/37, decreased mentation/AMS but arousable Patient complain of burning micturition for last 3 days. #1. Acute Encephalopathy, Multifactorial, most likely COVID-19 infectious/metabolic encephalopathy: Patient is being admitted in ICU. Continue IV fluid hydration at slow rate. Keep pulse ox more than 90%. Continue IV steroid. MRI brain is done, report not available. 2D echo is ordered. ECHO 12/25/2019 with normal LV systolic function, EF 60%, mildly enlarged LA, mild MVI, trivial TVI, trivial MARIANO, trivial PVI, RVSP 25 mmHg TSH and free T3 low but free T4 normal possible euthyroid sick syndrome. 2. Hypotension, most likely due to intravascular volume depletion/hypovolemia, possibility of acute adrenal insufficiency: Patient on IV hydrocortisone 50 mg try to wean from tomorrow. Patient is off Levophed today. Patient has a right IJ CVC catheter. Patient on IV empiric antibiotic for suspected pneumonia. Patient was on Levophed for very short period of time currently off Levophed. 05/08: BP in 140s. Gradually weaning hydrocortisone,50 mg daily. Infectious work-up including enteric bacteriology panel, respiratory panel, are negative. Blood cultures negative for 48 hours. We will discontinue the antibiotic. I do not think septic shock reason for hypotension. Empiric antibiotics discontinued. 3. COVID-19 pneumonia with hypoxemia: Patient has COVID-19 pneumonia. Patient on IV steroid. Does not meet criteria for IV remdesivir. Serial troponin assays shows decreasing trend. Most likely acute myocardial injury from COVID-19 pneumonia due to increased demand. Patient is COVID PCR-positive. Patient has mild cough. Denies shortness of breath. Mild cough/choking sensation while drinking water with tingling sensation. 05/07:Today for follow-up. 4. Acute kidney injury and acute rhabdomyolysis: Admission total creatinine kinase 3226 with lactic acidosis, acute kidney injury and transaminitis with elevated AST consistent with acute rhabdomyolysis.Admission BUN/Cr 44/5.39, prior baseline creatinine noted to be primarily 1.4-1.7, most recent 01/31/2023 creatinine 1.72. Monitor kidney function. Avoid nephrotoxic medications 05/07: Creatinine is still high 5.1. CPK level 812. Urine output about 600 mL yesterday and 360 mill since midnight. Urine is turbid looking. 05/08: Patient had swollen red mL urine output. Monitor kidney function.CK level better. First UA shows WBC, bacteria, mucus 0. [place] UA. Repeat UA, urine electrolytes, osmolality and urine culture ordered. Started on bicarb drip. Nephrology consult requested. #5. Acute liver injury possible due to ischemic hepatitis due to hypotension or infectious viral hepatitis: Admission CMP with T. bili 0.70, AST/LT 185/49, alk phos 76, last AST 01/31/2023 noted to be normal at 20. Monitor liver chemistry 05/08: Repeat liver chemistry ordered. #6. Lactic acidosis: Admission lactic acid 4.5, suspect multifactorial with rhabdomyolysis as well as acute kidney injury with respiratory failure, continue slow IV #7. CAD: Status post PCI x 6, continue aspirin, statin, per current list not on beta-nevaeh therapy however given hypotension this will be deferred. #8. 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 ED initiated TSH 0.27 however free T41.07, subclinical. #9. Chronic iron deficiency anemia: Admission hemoglobin 13.7, MCV 94, baseline hemoglobin recently 13-14, stable, continue iron supplementation and CBC trending. #10. Parkinson's disease: We will continue patient home Sinemet regimen, complicates presentation, maintain on fall and aspiration precautions, PT/OT/case management consulted for discharge planning. #11. Anxiety and depression: We will continue patient home escitalopram regimen. #12. Hyperlipidemia: We will continue patient home statin therapy; however, if LFT rises 3x ULN will hold. #13. History ICH: Unclear history of event, current CT of the head with no acute intracranial findings as noted. #14. BPH: Per current list not on regimen, clarifying we will add if appropriate. #15. BENITA: Clarifying if patient uses CPAP nightly. #16. DVT prophylaxis: heparin. #17. CODE status: Patient does not have healthcare power admitted attorneys or living will but his son is present and they both note that he would be the decision maker. From discussions they are uncertain if living will and is in place. Discussed CODE status at length including difference between FULL code, DNR-CCA and DNR-CC status. Following discussions about the differences in these status, requested DNR-CCA, no intubation but amenable with central line being placed now her ED physician and pressors. Advanced Care Planning Face to Face Time: 16 minutes. Charges/Coding Visit Charges Inpatient E&M: [id number] [facility] Hosp L3
[2023-05-08] MEDS: Sodium Bicarbonate 150 MEQ in Dextrose 5%-Water (1000mL Bag) 1,000 ML 125 MEQ IV (15:21)
[2023-05-08 15:42] LABS: Bacteria 0 SEEN /hpf (None Seen); Mucous, Urine 0 SEEN /hpf (<or=2+)
[2023-05-08 15:46] LABS: Absolute Lymphocyte Count 0.51 X10^3/uL (0.83-4.51); Absolute Neutrophil Count 12.5 X10^3/uL (2.0-7.7); Basophil# 0.01 X10^3/uL; Basophil% 0.1 % (0-1); Hematocrit 32.3 % (40-54); Hemoglobin 10.5 g/dL (13.0-16.5); Lymphocyte # 0.51 X10^3/ul (0.83-4.51); Lymphocyte % 3.7 % (19-41); Mean Corp Hgb Conc 32.5 g/dL (32-36); Mean Corpuscular Volume 95.3 fL (80-94); Mean Platelet Vol. 9.8 fl (6.2-12.0); Monocyte# 0.63 X10^3/uL; Monocyte% 4.6 % (0-10); NRBC Flagged by Analyzer 0 % (0-5); Neutrophil # 12.45 X10^3/uL (2.7-7.7); POSITIVE DIFFERENTIAL YES; Platelet Count 157 K/mm3 (150-450); RBC Distribution Width CV 13.9 % (11.6-14.6); RBC Distribution Width SD 48.9 fl (35.1-43.9); Red Blood Count 3.39 M/mm3 (4.6-6.2); White Blood Count 13.7 K/mm3 (4.4-11.0)
[2023-05-08 16:00] LABS: Color, Urine Yellow (Yellow); Glucose, Dipstick Normal (Normal); Ketone-Dipstick Negative (Negative); Leukocyte Esterase-Dipstick 25 /ul (Negative); Nitrite-Dipstick Negative (Negative); Occult Blood-Urine 250 /ul (Negative); Protein-Dipstick 30 mg/dl (Negative); Specific Gravity, Urine 1.015 (1.002-1.030); Urine Bilirubin Dipstick Negative (Negative); Urine Clarity Cloudy (Clear); Urine Urobilinogen Normal (Normal)
[2023-05-08 16:13] LABS: Differential Indicated SCAN CRITERIA MET
[2023-05-08 16:14] LABS: Differential Comment SCANNED
[2023-05-08] MEDS: guaiFENesin 10 ML UDC (200MG/10ML) PO ×2 (16:30→23:21)
[2023-05-08 16:32] LABS: ALB/GLOB Ratio 0.7 RATIO (0.9-2.4); AST(SGOT) 83 U/L (15-37); Alanine Aminotransfer ALT/SGPT 11 U/L (16-61); Albumin, Serum 2.2 g/dL (3.2-5.0); Alkaline Phosphatase 78 U/L (45-117); Anion Gap 14 (5-15); BUN 70 mg/dL (7-18); BUN/Creat Ratio 10.9 RATIO (10-20); Calcium,Total 7.4 mg/dL (8.5-10.1); Chloride 120 mmol/L (98-107); Creatinine, Serum 6.41 mg/dL (0.70-1.30); EST Glomerular Filtration Rate 9 mL/min (>60); Est Glom Filt Rate - Afr Amer 11 mL/min (>60); Estimated Creatinine Clearance 9.04 ml/min; Globulin 3.3 g/dL (2.2-4.2); Glucose 99 mg/dL (74-106); Potassium 3.7 mmol/L (3.5-5.1); Protein, Total 5.5 g/dL (6.4-8.2); Sodium Level 148 mmol/L (136-145)
[2023-05-08 16:33] LABS: Red Blood Cells-Urine 10-25 SEEN /hpf (0-5); White Blood Cells 0-5 SEEN /hpf (0-5)
[2023-05-08 16:34] LABS: Amorphous Sediment 3+ PHOS; Squamous Epithelial Cells - UA 0-5 SEEN /hpf (0-5)
[2023-05-08 17:59] LABS: Osmolality, Urine 349 mOsm/KG; Urine Chloride 18 mmol/L (Not Establ.); Urine Potassium 46.6 mmol/L (Not Establ.); Urine Sodium 13 mmol/L (Not Establ.)
[2023-05-09] VITALS (22 sets, daily range): BP systolic 64–125; BP diastolic 41–78; PULSE 57–65; RESP 18–30; TEMP 36.3–36.7; O2SAT 92–100; BMI 26.5
[2023-05-09] MEDS: Sodium Bicarbonate 150 MEQ in Dextrose 5%-Water (1000mL Bag) 1,000 ML 125 MEQ IV (00:37)
[2023-05-09] MEDS: guaiFENesin 10 ML UDC (200MG/10ML) PO ×5 (03:05→21:05)
[2023-05-09] MEDS: Carbidopa/Levodopa 25/100 Tablet PO ×3 (05:28→21:09)
[2023-05-09] MEDS: Levothyroxine 125 MCG Tablet PO (05:28)
[2023-05-09] MEDS: Acetaminophen 325 MG Tablet 650 MG PO (05:34)
[2023-05-09] MEDS: Menthol/Lanolin/Calamine/Znox 113 GM Tube 1 APPLIC TOPICAL ×3 (05:38→21:05)
[2023-05-09 06:55] LABS: Absolute Lymphocyte Count 0.76 X10^3/uL (0.83-4.51); Absolute Neutrophil Count 4.3 X10^3/uL (2.0-7.7); Basophil# 0.02 X10^3/uL; Basophil% 0.4 % (0-1); Eosinophil# 0.05 X10^3/uL; Eosinophils% 0.9 % (0-5); Hemoglobin 10.2 g/dL (13.0-16.5); Lymphocyte # 0.76 X10^3/ul (0.83-4.51); Lymphocyte % 14.2 % (19-41); Mean Corp Hgb Conc 32.9 g/dL (32-36); Mean Corpuscular Hgb 30.4 pg (27.0-32.0); Mean Corpuscular Volume 92.5 fL (80-94); Mean Platelet Vol. 10.2 fl (6.2-12.0); Monocyte% 3.7 % (0-10); NRBC Flagged by Analyzer 0 % (0-5); Neutrophil % 80.4 % (47-70); POSITIVE MORPHOLOGY YES; Platelet Count 122 K/mm3 (150-450); RBC Distribution Width CV 13.7 % (11.6-14.6); RBC Distribution Width SD 47.1 fl (35.1-43.9); Red Blood Count 3.35 M/mm3 (4.6-6.2); White Blood Count 5.4 K/mm3 (4.4-11.0)
[2023-05-09 06:58] LABS: Differential Indicated SCAN CRITERIA MET
[2023-05-09 07:12] LABS: Anion Gap 12 (5-15); BUN 74 mg/dL (7-18); BUN/Creat Ratio 11.7 RATIO (10-20); Calcium,Total 7.4 mg/dL (8.5-10.1); Chloride 118 mmol/L (98-107); Creatinine, Serum 6.35 mg/dL (0.70-1.30); EST Glomerular Filtration Rate 9 mL/min (>60); Est Glom Filt Rate - Afr Amer 11 mL/min (>60); Estimated Creatinine Clearance 9.12 ml/min; Glucose 113 mg/dL (74-106); Potassium 2.9 mmol/L (3.5-5.1); Sodium Level 149 mmol/L (136-145)
[2023-05-09] MEDS: Budesonide Respules 0.5 MG/2 ML AMPUL.NEB. INHALATION (07:15)
[2023-05-09 07:16] LABS: Differential Comment SCANNED
--- NOTE | 2023-05-09 08:08 | PN.HOSP_ITS ---
Reason for Visit Reason for Visit: Diagnoses Shock, unspecified (05/05/23) COVID-19 (05/05/23) Subjective Subjective Follow-up for hypotension. Multiple other acute issues. Objective Data Objective Data Vital Signs: Vital Signs Temp Pulse Resp BP Pulse Ox O2 Del Method O2 Flow Rate 97.3 F L 63 22 H 72/44 L 95 Nasal Cannula 4 05/09/23 08:00 05/09/23 08:00 05/09/23 08:00 05/09/23 08:00 05/09/23 08:00 05/09/23 08:00 05/09/23 08:00 FiO2 16 05/05/23 14:43 Oxygen Flow Rate (L/min) 4 Oxygen Delivery Method Nasal Cannula Weight: 179 lb 10.828 oz Body Mass Index (BMI) 26.5 Intake & Output: Intake and Output for Last 24 Hours 05/07/23 05/08/23 05/09/23 23:59 23:59 23:59 Intake Total 2029.16 / 202.16 100 / 100 1150 / 1150 Output Total 710 / 710 250 / 250 Balance 1319.16 / 1319.16 -150 / -150 1150 / 1150 Lab / Micro Data 05/09/23 06:26 05/09/23 06:26 Labs: Laboratory Results - last 24 hr 05/08/23 15:15: WBC 13.7 H, RBC 3.39 L, Hgb 10.5 L, Hct 32.3 L, MCV 95.3 H, MCH 31.0, MCHC 32.5, RDW Std Deviation 48.9 H, RDW Coeff of Delisa 13.9, Plt Count 157, MPV 9.8, Immature Gran % (Auto) 0.600, Neut % (Auto) 91.0 H, Lymph % (Auto) 3.7 L, [place] % (Auto) 4.6, Eos % (Auto) 0.0, Baso % (Auto) 0.1, Absolute Neuts (auto) 12.5 H, Absolute Lymphs (auto) 0.51 L, Nucleated RBC % 0, Differential Comment SCANNED, Sodium 148 H, Potassium 3.7, Chloride 120 H, Carbon Dioxide 14.0 L, Anion Gap 14, BUN 70 H, Creatinine 6.41 H, Estim Creat Clear Calc 9.04, Est GFR (MDRD) Af Amer 11 L, Est GFR (MDRD) Non-Af 9 L, BUN/Creatinine Ratio 10.9, Glucose 99, Calcium 7.4 L, Total Bilirubin 0.50, AST 83 H, ALT 11 L, Alkaline Phosphatase 78, Total Protein 5.5 L, Albumin 2.2 L, Globulin 3.3, Albumin/Globulin Ratio 0.7 L, Urine Color Yellow, Urine Clarity Cloudy, Urine pH 5.0, Ur Specific [place] 1.015, Urine Protein 30 H, Urine Glucose (UA) Normal, Urine Ketones Negative, Urine Occult Blood 250 H, Urine Nitrite Negative, Urine Bilirubin Negative, Urine Urobilinogen Normal, Ur Leukocyte Esterase 25 H, Urine RBC 10-25 SEEN, Urine WBC 0-5 SEEN, Ur Squamous Epith Cells 0-5 SEEN, Amorphous Sediment 3+ PHOS, Urine Bacteria 0 SEEN, Urine Mucus 0 SEEN, Urine Osmolality 349, Ur Random Sodium 13, Urine Creatinine 84.20, Urine Potassium 46.6, Urine Chloride 18 05/09/23 06:26: WBC 5.4, RBC 3.35 L, Hgb 10.2 L, Hct 31.0 L, MCV 92.5, MCH 30.4, MCHC 32.9, RDW Std Deviation 47.1 H, RDW Coeff of Delisa 13.7, Plt Count 122 L, MPV 10.2, Immature Gran % (Auto) 0.400, Neut % (Auto) 80.4 H, Lymph % (Auto) 14.2 L, [place] % (Auto) 3.7, Eos % (Auto) 0.9, Baso % (Auto) 0.4, Absolute Neuts (auto) 4.3, Absolute Lymphs (auto) 0.76 L, Nucleated RBC % 0, Differential Comment SCANNED, Sodium 149 H, Potassium 2.9 L, Chloride 118 H, Carbon Dioxide 19.0 L, Anion Gap 12, BUN 74 H, Creatinine 6.35 H, Estim Creat Clear Calc 9.12, Est GFR (MDRD) Af Amer 11 L, Est GFR (MDRD) Non-Af 9 L, BUN/Creatinine Ratio 11.7, Glucose 113 H, Calcium 7.4 L Micro: Microbiology 05/05/23 12:47 Urine, Catheterized Urine Culture - Final Enterococcus faecalis 05/05/23 13:15 Blood Culture (Wb) - Anticubital Left Blood Culture - Preliminary No growth in 48 hours. 05/05/23 12:47 Blood Culture (Wb) - Anticubital Right Blood Culture - Preliminary No growth in 48 hours. 05/05/23 17:50 Stool C. difficile DNA Amplification - Final 05/05/23 21:15 Stool Enteric Bacteriology - Final 05/05/23 17:50 Mucosa - Nasopharyngeal Coronavirus COVID-19 PCR - Final SARS-CoV-2 (COVID 19) 05/05/23 17:50 Mucosa - Nasopharyngeal Respiratory Panel (PCR) - Final 05/05/23 18:11 Urine Catheter - Catheter Legionella Antigen - Final 05/05/23 18:11 Urine Catheter - Catheter Streptococcus pneumoniae Antigen (M - Final Physical Exam Narrative Seen and examined. 250 ml UOP charted yesterday, 710 ml of 05/07. +NET fluid balalnce 7.5 L. BP low 77/40, low K patient was given 1 L of Ringer lactate bolus yesterday. Patient is awake and alert. No fever. Urine is still dark. Physical exam General: Awake, oriented x3 responding to verbal appropriately. HEENT: Bilateral hard of hearing atraumatic, PERRLA, EOMI, Normocephalic Oral: Oral mucosa dry. No Gingival or Mucosal Lesions/ Ulcerations Neck: Right CVC catheter. Supple, No JVD, Negative Carotid Bruits Lungs: Air entry diminished in bilateral lung bases. Mild bilateral fine wheezing. Cardiovascular: Sinus rhythm rhythm, Normal S1, Normal S2, No murmurs Abdomen: Bowel Sounds Present, Soft, Non Tender, Non-Distended : Thompson catheter, cloudy turbid urine. No renal angle tenderness. No suprapubic tenderness. Extremities: No edema, Capillary Refill Less than 3 Seconds Skin: No rashes, No breakdown Musculoskeletal: No Tenderness to Palpation of Joints or Extremities Neurological: Cranial nerves II-XII grossly intact, DTR 2+/4. No acute focal neurological deficit. Psych/Mental Status: Flat affect. Talking overnight. Assessment & Plan Assessment/Plan (1) Shock: PLAN: Plan The patient is an 82 y/o M was admitted to ICU on 05/05/23 for being found on floor of unclear duration, hypoxia 64% on room air, BP 66/37, decreased mentation/AMS but arousable Patient complain of burning micturition for last 3 days. #1. Acute Encephalopathy, Multifactorial, most likely COVID-19 infectious/metabolic encephalopathy: Patient is being admitted in ICU. Continue IV fluid hydration at slow rate. Keep pulse ox more than 90%. Continue IV steroid. MRI brain is done, report not available. 2D echo is ordered. ECHO 12/25/2019 with normal LV systolic function, EF 60%, mildly enlarged LA, mild MVI, trivial TVI, trivial MARIANO, trivial PVI, RVSP 25 mmHg TSH and free T3 low but free T4 normal possible euthyroid sick syndrome. 2. Hypotension, most likely due to intravascular volume depletion/hypovolemia, possibility of acute adrenal insufficiency: Patient on IV hydrocortisone 50 mg try to wean from tomorrow. Patient is off Levophed today. Patient has a right IJ CVC catheter. Patient on IV empiric antibiotic for suspected pneumonia. Patient was on Levophed for very short period of time currently off Levophed. 05/08: BP in 140s. Gradually weaning hydrocortisone,50 mg daily. Infectious work-up including enteric bacteriology panel, respiratory panel, are negative. Blood cultures negative for 48 hours. We will discontinue the antibiotic. I do not think septic shock reason for hypotension. Empiric antibiotics discontinued. 05/09: Patient was dizzy in the morning. Patient blood pressure was in 70s in th e morning, 1 L Ringer lactate bolus given but patient blood pressure still in the 60s. Patient on hydrocortisone increased to 50 mg every 12 hourly. Net positive fluid balance 7.5 L. Dizziness resolved after IV fluid bolus but patient blood pressure is still low therefore transferred to ICU. 3. COVID-19 pneumonia with hypoxemia: Patient has COVID-19 pneumonia. Patient on IV steroid. Does not meet criteria for IV remdesivir. Serial troponin assays shows decreasing trend. Most likely acute myocardial injury from COVID- 19 pneumonia due to increased demand. Patient is COVID PCR-positive. Patient has mild cough. Denies shortness of breath. Mild cough/choking sensation while drinking water with tingling sensation. 05/07: Continue antibiotic 4. Acute kidney injury and acute rhabdomyolysis likely due to ATN: Admission total creatinine kinase 3226 with lactic acidosis, acute kidney injury and transaminitis with elevated AST consistent with acute rhabdomyolysis.Admission BUN/Cr 44/5.39, prior baseline creatinine noted to be primarily 1.4-1.7, most recent 01/31/2023 creatinine 1.72. Monitor kidney function. Avoid nephrotoxic medications 05/07: Creatinine is still high 5.1. CPK level 812. Urine output about 600 mL yesterday and 360 mill since midnight. Urine is turbid looking. 05/08: Monitor kidney function.CK level better. First UA shows WBC, bacteria, mucus 0. [place] UA. Repeat UA, urine electrolytes, osmolality and urine culture ordered. Started on bicarb drip. Nephrology consult requested. 05/09 creatinine stable as compared to yesterday, 6.3. Urine is still cloudy. Urine shows RBC 10-25 cells, LE 25, WBC 0-5 cells. Nitrite negative. 3+ amorphous sediments. Urine electrolytes show sodium 13, creatinine 84, potassium 46. Chloride 18. Discussed with the acute care physical therapist. Kidney function is stabilized probably will not need dialysis. Renal ultrasound without hydronephrosis or increased echogenicity. #5. Acute liver injury possible due to ischemic hepatitis due to hypotension or infectious viral hepatitis: Admission CMP with T. bili 0.70, AST/LT 185/49, alk phos 76, last AST 01/31/2023 noted to be normal at 20. Monitor liver chemistry 05/08: Repeat liver chemistry ordered. #6. Lactic acidosis: Admission lactic acid 4.5, suspect multifactorial with rhabdomyolysis as well as acute kidney injury with respiratory failure, continue slow IV #7. CAD: Status post PCI x 6, continue aspirin, statin, per current list not on beta-nevaeh therapy however given hypotension this will be deferred. #8. 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 ED initiated TSH 0.27 however free T41.07, subclinical. #9. Chronic iron deficiency anemia: Admission hemoglobin 13.7, MCV 94, baseline hemoglobin recently 13-14, stable, continue iron supplementation and CBC trending. #10. Parkinson's disease: We will continue patient home Sinemet regimen, complicates presentation, maintain on fall and aspiration precautions, PT/OT/case management consulted for discharge planning. #11. Anxiety and depression: We will continue patient home escitalopram regimen. #12. Hyperlipidemia: We will continue patient home statin therapy; however, if LFT rises 3x ULN will hold. #13. History ICH: Unclear history of event, current CT of the head with no acute intracranial findings as noted. #14. BPH: Per current list not on regimen, clarifying we will add if appr opriate. #15. BENITA: Clarifying if patient uses CPAP nightly. #16. DVT prophylaxis: heparin. #17. CODE status: Patient does not have healthcare power ip attorney or living will but his son is present and they both note that he would be the decision maker. From discussions they are uncertain if living will and is in place. Discussed CODE status at length including difference between FULL code, DNR-CCA and DNR-CC status. Following discussions about the differences in these status, requested DNR-CCA, no intubation but amenable with central line being placed now her ED physician and pressors. Advanced Care Planning Face to Face Time: 16 minutes. Charges/Coding Visit Charges Inpatient E&M: [id number] [facility] Hosp L3
[2023-05-09] MEDS: Lactated Ringers 1,000 ML 999 ML IV (08:23)
[2023-05-09] MEDS: 0.9 % NaCl (Sterile) Posiflush 10 mL IV (08:25)
[2023-05-09] MEDS: Heparin Injection (Vial) 5,000 UNIT/ML VIAL 5000 UNIT SC ×2 (09:32→21:11)
[2023-05-09] MEDS: Aspirin E.C. 81 MG Tablet PO (09:32)
[2023-05-09] MEDS: Escitalopram Oxalate 10 MG Tablet PO (09:32)
[2023-05-09] MEDS: 0.9% Saline Lock 10 ML Syringe IV (09:33)
[2023-05-09] MEDS: Hydrocortisone Sod Succinate 100 MG/2 ML Vial 50 MG IV ×2 (09:33→21:08)
--- NOTE | 2023-05-09 09:46 | CASEMGMT ---
TCU is unable to take patient. CHRISTY met with patient's daughter Ruby in patient's room per daughter's request. Ruby said she would like TCU, but she was informed they are unable to take any more [place] right now. The next choice would be [facility] then [facility]. CHRISTY let Ruby know SW will work on referrals. CHRISTY will let them know when SW has an accepting facility. Ruby asked about the next step. CHRISTY told Ruby it is up to the physician when he feels patient is medically ready. Ruby was upset as she has not heard from a physician. CHRISTY let Ruby know SW can ask the physician if he could talk with her. CHRISTY asked Elle d/c estate planning counselor to please send a referral to [facility]. CHRISTY also notified physician that patient's daughter would like to talk with a physician. Vianca Martinez [employer]
[2023-05-09] MEDS: Potassium Chloride 10mEq/100mL 10 MEQ/100 ML IV.SOLN. 100 MEQ IV BOLUS ×2 (10:11→11:45)
--- NOTE | 2023-05-09 10:21 | CASEMGMT ---
Discharge Planning Referral sent to [facility] via [facility]. Elle Stevens, Discharge Planning Asst.
--- NOTE | 2023-05-09 10:45 | NURSING ---
called report to mary in ICU
--- NOTE | 2023-05-09 12:43 | PCM.CONS.R ---
Assessment & Plan Assessment/Plan (1) GERTRUDE (acute kidney injury): PLAN: Baseline creatinine appears to be around 1.6 or so. Came in with a creatinine of more than 5, initially improved. Creatinine worsening over the last 2 days again. Creatinine today is at 6.3, about the same as yesterday. Renal ultrasound without any hydronephrosis, increased echogenicity Urine analysis is not impressive, he did have blood in the urine consistent with rhabdomyolysis. Reina catheter indwelling with somewhat concentrated looking urine. Clinically no signs of volume overload. We will check urine labs Hypotensive this morning, discussed with hospitalist, he has received an IV fluid bolus. May need to start on pressors. COVID-pneumonia, currently on treatment. Acute renal failure is likely due to ATN. CPK level was not high enough to cause GERTRUDE. He is making urine. Potassium is on the lower side. No acute indications to start dialysis today. Creatinine today is about the same as yesterday. Hopefully this is the peak. Will wait for 1 more day and see if there is any improvement. Hypokalemia. Repleted Acidosis. Received bicarbonate. Levels are better. Discussed with hospitalist HPI Consult Data Date of Consult: 05/09/23 HPI Narrative Reason for Consultation: Acute renal failure HPI Narrative: KEN ALFRED, is a 82 M who presented to the hospital initially on the after he was found. 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 Baseline creatinine appears to be around 1.6-1.8. He was initially treated for volume depletion, COVID-pneumonia, hypotension, altered mental status. He was found to have mild degree of rhabdomyolysis with a peak CPK level of 3200. Improved creatinine, was transferred to the floor. Now he is being transferred back to the ICU in view of hypotension. Creatinine improved up to 5.3, now back up to 6.3 again. Currently alert, awake. Is not in any respiratory distress. Reina catheter indwelling, somewhat concentrated urine. 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 Home Medications atorvastatin 20 mg tablet 20 mg PO DAILY cholesterol 12/25/19 [History Last Taken 12/21/20] aspirin 81 mg tablet,delayed release 81 mg PO DAILY Heart health 01/16/20 [History Last Taken 12/22/20] carbidopa 25 mg-levodopa 100 mg tablet 1.5 tab PO TID Parkinson disease 07/24/20 [History Last Taken 12/22/20] cholecalciferol (vitamin D3) 50 mcg (2,000 unit) capsule 2,000 unit PO DAILY Supplement 09/08/20 [History Last Taken 12/22/20] acetaminophen 500 mg tablet 1,000 mg (2 x 500 mg) PO Q6H PRN PRN Pain Score 1-5 09/25/20 [Rx Last Taken Unknown] escitalopram oxalate 10 mg tablet 10 mg PO DAILY 09/25/20 [Rx Last Taken 12/22/20] polysaccharide iron complex 150 mg iron capsule 150 mg PO DAILYCM #30 caps 09/25/20 [Rx Last Taken 12/21/20] omega 5-coh-bmt-fish oil 1,200 mg (144 mg-216 mg) capsule (Fish Oil) 1,200 cap PO DAILY SUPPLEMENT 12/22/20 [History Last Taken 12/22/20] levothyroxine 125 mcg tablet 125 mcg PO 06/08/22 [History Last Taken Unknown] tolterodine 4 mg capsule,extended release 24 hr 4 mg PO 06/08/22 [History Last Taken Unknown] hydrocortisone 10 mg tablet See Rx Instructions PO .COMPLEX ADRENAL #270 tabs 11/18/22 [Rx Last Taken Unknown] Allergy/AdvReac Type Severity Reaction Status Date / Time No Known Allergies Allergy Verified 01/31/23 14:28 Family History (Updated 05/05/23 @ 20:[address] Dixie Carlos MD) Mother Skin cancer Cancer Skin and other unknown Sister Cancer Unknown type Father Alzheimer disease Surgical History History of back surgery History of cholecystectomy (~12/2019) Hx of colonoscopy Hx of elbow surgery Hx of heart artery stent Hx of left breast biopsy Social History Smoking Status: Never smoker second hand exposure: No alcohol intake: current alcohol intake frequency: holidays/special occasions only substance use type: does not use caffeine: Yes what type of physical activity do you participate in: none frequency: does not exercise ROS ROS Narrative Negative except above Physical Exam Narrative no obvious distress no pallor no icterus no JVD s1s2 no murmurs lungs clear abdomen soft no organomegaly no edema no cyanosis reina + Lab / Micro Data 05/09/23 06:26 05/09/23 06:26 Labs: Laboratory Results - last 24 hr 05/08/23 15:15: WBC 13.7 H, RBC 3.39 L, Hgb 10.5 L, Hct 32.3 L, MCV 95.3 H, MCH 31.0, MCHC 32.5, RDW Std Deviation 48.9 H, RDW Coeff of Delisa 13.9, Plt Count 157, MPV 9.8, Immature Gran % (Auto) 0.600, Neut % (Auto) 91.0 H, Lymph % (Auto) 3.7 L, [place] % (Auto) 4.6, Eos % (Auto) 0.0, Baso % (Auto) 0.1, Absolute Neuts (auto) 12.5 H, Absolute Lymphs (auto) 0.51 L, Nucleated RBC % 0, Differential Comment SCANNED, Sodium 148 H, Potassium 3.7, Chloride 120 H, Carbon Dioxide 14.0 L, Anion Gap 14, BUN 70 H, Creatinine 6.41 H, Estim Creat Clear Calc 9.04, Est GFR (MDRD) Af Amer 11 L, Est GFR (MDRD) Non-Af 9 L, BUN/Creatinine Ratio 10.9, Glucose 99, Calcium 7.4 L, Total Bilirubin 0.50, AST 83 H, ALT 11 L, Alkaline Phosphatase 78, Total Protein 5.5 L, Albumin 2.2 L, Globulin 3.3, Albumin/Globulin Ratio 0.7 L, Urine Color Yellow, Urine Clarity Cloudy, Urine pH 5.0, Ur Specific [place] 1.015, Urine Protein 30 H, Urine Glucose (UA) Normal, Urine Ketones Negative, Urine Occult Blood 250 H, Urine Nitrite Negative, Urine Bilirubin Negative, Urine Urobilinogen Normal, Ur Leukocyte Esterase 25 H, Urine RBC 10-25 SEEN, Urine WBC 0-5 SEEN, Ur Squamous Epith Cells 0-5 SEEN, Amorphous Sediment 3+ PHOS, Urine Bacteria 0 SEEN, Urine Mucus 0 SEEN, Urine Osmolality 349, Ur Random Sodium 13, Urine Creatinine 84.20, Urine Potassium 46.6, Urine Chloride 18 05/09/23 06:26: WBC 5.4, RBC 3.35 L, Hgb 10.2 L, Hct 31.0 L, MCV 92.5, MCH 30.4, MCHC 32.9, RDW Std Deviation 47.1 H, RDW Coeff of Delisa 13.7, Plt Count 122 L, MPV 10.2, Immature Gran % (Auto) 0.400, Neut % (Auto) 80.4 H, Lymph % (Auto) 14.2 L, [place] % (Auto) 3.7, Eos % (Auto) 0.9, Baso % (Auto) 0.4, Absolute Neuts (auto) 4.3, Absolute Lymphs (auto) 0.76 L, Nucleated RBC % 0, Differential Comment SCANNED, Sodium 149 H, Potassium 2.9 L, Chloride 118 H, Carbon Dioxide 19.0 L, Anion Gap 12, BUN 74 H, Creatinine 6.35 H, Estim Creat Clear Calc 9.12, Est GFR (MDRD) Af Amer 11 L, Est GFR (MDRD) Non-Af 9 L, BUN/Creatinine Ratio 11.7, Glucose 113 H, Calcium 7.4 L Radiology Impression Carotid Duplex 05/06/23 03:27 Interpretation Summary Mild (<50%) stenosis right extracranial internal carotid. Mild (<50%) stenosis left extracranial internal carotid. The Left vertebral is patent and antegrade. Right vertebral artery is not visualized Limited study on right, alternative imaging ma be beneficial Ordering Physician: Antolin Vizcarra Referring Physician: García Trevino MD Performed By: Sepideh Hidalgo RVT
--- NOTE | 2023-05-09 13:23 | PCM.PN.INT ---
Assessment & Plan Assessment/Plan (1) Shock: (2) COVID-19: PLAN: Plan RECOMMENDATIONS: 1. Antibiotics can likely be discontinued from my perspective. 2. Continue to wean stress dose steroids. 3. Supplemental oxygen, if needed, to maintain saturations at or above 90%. 4. Encourage incentive spirometer use and mobilize patient as tolerated. IMPRESSIONS: 1. Hypotension The patient initially presented to the hospital in encephalopathic state with associated hypotension and hypoxemia. His presenting hypotension was likely the consequence of intravascular volume depletion coupled with potential adrenal insufficiency. This appears to have recurred. Would reinitiate pressors if necessary. Patient did recently have a stress no steroids reduced. Patient also having an element of acidosis secondary to renal failure. Blood pressures have improved, so we will hold on any other interventions at this time 2. Encephalopathy Likely related to presenting infection with COVID-19 pneumonia. The patient does have Parkinson's disease with questionable dementia. He is alert and appropriate at the present time. Plan to continue to monitor the patient clinically. 3. Hypoxemia/COVID-19 pneumonia Likely secondary to underlying COVID-19 pneumonia. In addition, the patient has an apparent history of obstructive sleep apnea and is supposed to be utilizing outpatient nocturnal PAP therapy. Recommend continuing nocturnal PAP therapy along with supplemental oxygen to maintain saturations at or above 90%. Patient's oxygenation status has remained stable 4. Acute kidney injury/rhabdomyolysis Likely prerenal in etiology. Rhabdomyolysis has improved with volume resuscitation. Nephrology has evaluated the patient. We will hold on dialysis for now. 5. NSTEMI/history of coronary artery disease Most likely secondary to demand ischemia in the setting of the above. 6. History of pituitary macroadenoma status postresection/hypothyroidism/anemia/Parkinson's disease/obstructive sleep apnea Complicates care, management, recovery and prognosis. Continue nocturnal PAP therapy per home regimen. Continue baseline home medications as indicated. This note was generated with [employer] dictation software. It may contain incorrect words, spelling, and punctuation that were not noted in checking the note before signing. Subjective Subjective Patient did okay overnight on nasal cannula oxygen, but this morning was noted to have some hypotension. Patient was transferred to the intensive care unit for further evaluation. Once in the intensive care unit, patient did not have to be initiated on pressors. Patient remains confused. Nephrology did meet with next of kin and patient is not to be initiated on dialysis at this time. Objective Data Objective Data Vital Signs: Vital Signs Temp Pulse Resp BP Pulse Ox O2 Del Method O2 Flow Rate 36.5 C L 62 23 H 112/75 94 Nasal Cannula 4 05/09/23 12:00 05/09/23 13:00 05/09/23 13:00 05/09/23 13:00 05/09/23 13:00 05/09/23 13:00 05/09/23 13:00 FiO2 16 05/05/23 14:43 Oxygen Flow Rate (L/min) 4 Oxygen Delivery Method Nasal Cannula Weight: 81.5 kg Body Mass Index (BMI) 26.5 Intake & Output: Intake and Output for Last 24 Hours 05/07/23 05/08/23 05/09/23 23:59 23:59 23:59 Intake Total 2029.16 / 202.16 100 / 100 3468.75 / 3468.75 Output Total 710 / 710 250 / 250 Balance 1319.16 / 1319.16 -150 / -150 3468.75 / 3468.75 Lab / Micro Data Attestation: I reviewed the patient's lab results. 05/09/23 06:26 05/09/23 06:26 Labs: Laboratory Results - last 24 hr 05/08/23 15:15: WBC 13.7 H, RBC 3.39 L, Hgb 10.5 L, Hct 32.3 L, MCV 95.3 H, MCH 31.0, MCHC 32.5, RDW Std Deviation 48.9 H, RDW Coeff of Delisa 13.9, Plt Count 157, MPV 9.8, Immature Gran % (Auto) 0.600, Neut % (Auto) 91.0 H, Lymph % (Auto) 3.7 L, [place] % (Auto) 4.6, Eos % (Auto) 0.0, Baso % (Auto) 0.1, Absolute Neuts (auto) 12.5 H, Absolute Lymphs (auto) 0.51 L, Nucleated RBC % 0, Differential Comment SCANNED, Sodium 148 H, Potassium 3.7, Chloride 120 H, Carbon Dioxide 14.0 L, Anion Gap 14, BUN 70 H, Creatinine 6.41 H, Estim Creat Clear Calc 9.04, Est GFR (MDRD) Af Amer 11 L, Est GFR (MDRD) Non-Af 9 L, BUN/Creatinine Ratio 10.9, Glucose 99, Calcium 7.4 L, Total Bilirubin 0.50, AST 83 H, ALT 11 L, Alkaline Phosphatase 78, Total Protein 5.5 L, Albumin 2.2 L, Globulin 3.3, Albumin/Globulin Ratio 0.7 L, Urine Color Yellow, Urine Clarity Cloudy, Urine pH 5.0, Ur Specific [place] 1.015, Urine Protein 30 H, Urine Glucose (UA) Normal, Urine Ketones Negative, Urine Occult Blood 250 H, Urine Nitrite Negative, Urine Bilirubin Negative, Urine Urobilinogen Normal, Ur Leukocyte Esterase 25 H, Urine RBC 10-25 SEEN, Urine WBC 0-5 SEEN, Ur Squamous Epith Cells 0-5 SEEN, Amorphous Sediment 3+ PHOS, Urine Bacteria 0 SEEN, Urine Mucus 0 SEEN, Urine Osmolality 349, Ur Random Sodium 13, Urine Creatinine 84.20, Urine Potassium 46.6, Urine Chloride 18 05/09/23 06:26: WBC 5.4, RBC 3.35 L, Hgb 10.2 L, Hct 31.0 L, MCV 92.5, MCH 30.4, MCHC 32.9, RDW Std Deviation 47.1 H, RDW Coeff of Delisa 13.7, Plt Count 122 L, MPV 10.2, Immature Gran % (Auto) 0.400, Neut % (Auto) 80.4 H, Lymph % (Auto) 14.2 L, [place] % (Auto) 3.7, Eos % (Auto) 0.9, Baso % (Auto) 0.4, Absolute Neuts (auto) 4.3, Absolute Lymphs (auto) 0.76 L, Nucleated RBC % 0, Differential Comment SCANNED, Sodium 149 H, Potassium 2.9 L, Chloride 118 H, Carbon Dioxide 19.0 L, Anion Gap 12, BUN 74 H, Creatinine 6.35 H, Estim Creat Clear Calc 9.12, Est GFR (MDRD) Af Amer 11 L, Est GFR (MDRD) Non-Af 9 L, BUN/Creatinine Ratio 11.7, Glucose 113 H, Calcium 7.4 L Micro: Microbiology 05/05/23 12:47 Urine, Catheterized Urine Culture - Final Enterococcus faecalis 05/05/23 13:15 Blood Culture (Wb) - Anticubital Left Blood Culture - Preliminary No growth in 48 hours. 05/05/23 12:47 Blood Culture (Wb) - Anticubital Right Blood Culture - Preliminary No growth in 48 hours. 05/05/23 17:50 Stool C. difficile DNA Amplification - Final 05/05/23 21:15 Stool Enteric Bacteriology - Final 05/05/23 17:50 Mucosa - Nasopharyngeal Coronavirus COVID-19 PCR - Final SARS-CoV-2 (COVID 19) 05/05/23 17:50 Mucosa - Nasopharyngeal Respiratory Panel (PCR) - Final 05/05/23 18:11 Urine Catheter - Catheter Legionella Antigen - Final 05/05/23 18:11 Urine Catheter - Catheter Streptococcus pneumoniae Antigen (M - Final Radiography Diagnostic Testing: Radiology Impression Carotid Duplex 05/06/23 03:27 Interpretation Summary Mild (<50%) stenosis right extracranial internal carotid. Mild (<50%) stenosis left extracranial internal carotid. The Left vertebral is patent and antegrade. Right vertebral artery is not visualized Limited study on right, alternative imaging ma be beneficial Ordering Physician: Antolin Vizcarra Referring Physician: García Trevino MD Performed By: Sepideh Hidalgo RVT Physical Exam Const alert and no apparent distress Constitutional Narrative: Remains confused. HEENT normocephalic and head/scalp atraumatic Eyes PERRL and EOMs intact bilaterally Neck supple General: trachea midline Chest inspection of chest normal Resp normal respiratory effort Auscultation: Negative for rales, rhonchi or wheezes Cardio regular rate, regular rhythm, S1 normal heart sound and S2 normal heart sound GI normal to inspection, nondistended, normoactive bowel sounds Extremity no clubbing, cyanosis or edema Skin no rashes or lesions noted Neuro CN's II-XII intact bilaterally and no focal motor deficits Psych Mood & Affect: flat affect Charges/Coding Visit Charges Inpatient E&M: 28188 Subs Hosp L3
[2023-05-10] VITALS (25 sets, daily range): BP systolic 93–144; BP diastolic 54–82; PULSE 52–67; RESP 15–23; TEMP 36.3–36.7; O2SAT 88–100; BMI 26.6
[2023-05-10] MEDS: Carbidopa/Levodopa 25/100 Tablet PO ×3 (05:02→23:20)
[2023-05-10] MEDS: Levothyroxine 125 MCG Tablet PO (05:03)
[2023-05-10] MEDS: Menthol/Lanolin/Calamine/Znox 113 GM Tube 1 APPLIC TOPICAL ×3 (05:03→23:19)
[2023-05-10 05:18] LABS: Absolute Neutrophil Count 8.5 X10^3/uL (2.0-7.7); Basophil# 0.02 X10^3/uL; Basophil% 0.2 % (0-1); Eosinophil# 0.01 X10^3/uL; Eosinophils% 0.1 % (0-5); Hematocrit 28.7 % (40-54); Hemoglobin 9.2 g/dL (13.0-16.5); Lymphocyte % 5.3 % (19-41); Mean Corp Hgb Conc 32.1 g/dL (32-36); Mean Corpuscular Hgb 30.1 pg (27.0-32.0); Mean Corpuscular Volume 93.8 fL (80-94); Mean Platelet Vol. 9.6 fl (6.2-12.0); Monocyte% 4.2 % (0-10); NRBC Flagged by Analyzer 0 % (0-5); Neutrophil % 89.3 % (47-70); POSITIVE DIFFERENTIAL YES; Platelet Count 115 K/mm3 (150-450); RBC Distribution Width CV 14.1 % (11.6-14.6); RBC Distribution Width SD 47.8 fl (35.1-43.9); Red Blood Count 3.06 M/mm3 (4.6-6.2); White Blood Count 9.5 K/mm3 (4.4-11.0)
[2023-05-10 05:21] LABS: Differential Indicated SCAN CRITERIA MET
[2023-05-10 05:35] LABS: Anion Gap 9 (5-15); BUN 77 mg/dL (7-18); BUN/Creat Ratio 12.3 RATIO (10-20); Calcium,Total 7.3 mg/dL (8.5-10.1); Chloride 117 mmol/L (98-107); Creatinine, Serum 6.25 mg/dL (0.70-1.30); EST Glomerular Filtration Rate 9 mL/min (>60); Est Glom Filt Rate - Afr Amer 11 mL/min (>60); Estimated Creatinine Clearance 9.27 ml/min; Glucose 118 mg/dL (74-106); Potassium 3.6 mmol/L (3.5-5.1); Sodium Level 149 mmol/L (136-145)
[2023-05-10 06:27] LABS: Anisocytosis 1+; Differential Comment SCANNED; Microcytosis 1+
[2023-05-10 06:28] LABS: Acanthocytes RARE
[2023-05-10] MEDS: Budesonide Respules 0.5 MG/2 ML AMPUL.NEB. INHALATION ×2 (07:08→19:00)
[2023-05-10] MEDS: Escitalopram Oxalate 10 MG Tablet PO (08:29)
[2023-05-10] MEDS: Aspirin E.C. 81 MG Tablet PO (08:29)
[2023-05-10] MEDS: guaiFENesin 10 ML UDC (200MG/10ML) PO ×3 (08:29→23:20)
[2023-05-10] MEDS: Hydrocortisone Sod Succinate 100 MG/2 ML Vial 50 MG IV ×2 (08:31→23:20)
[2023-05-10] MEDS: Heparin Injection (Vial) 5,000 UNIT/ML VIAL 5000 UNIT SC ×2 (08:32→23:20)
--- NOTE | 2023-05-10 08:34 | PN.CC_ITS ---
Assessment & Plan Assessment/Plan (1) Shock: (2) COVID-19: PLAN: Plan RECOMMENDATIONS: 1. Obtain swallow study with advancement of diet if tolerated 2. Hold stress dose steroids at current dose for now. 3. Supplemental oxygen, if needed, to maintain saturations at or above 90%. 4. Encourage incentive spirometer use and mobilize patient as tolerated. 5. Okay to transfer to PCU from my perspective IMPRESSIONS: 1. Hypotension The patient initially presented to the hospital in encephalopathic state with associated hypotension and hypoxemia. His presenting hypotension was likely the consequence of intravascular volume depletion coupled with potential adrenal insufficiency. Patient has been doing well since transfer to the intensive care unit. No pressors have been required. Hypotension may be improved secondary to control of metabolic acidosis 2. Encephalopathy Likely related to presenting infection with COVID-19 pneumonia. The patient does have Parkinson's disease with questionable dementia. He is alert and appropriate at the present time. Plan to continue to monitor the patient clinically. 3. Hypoxemia/COVID-19 pneumonia Resolved. Likely secondary to underlying COVID-19 pneumonia. In addition, the patient has an apparent history of obstructive sleep apnea and is supposed to be utilizing outpatient nocturnal PAP therapy. Recommend continuing nocturnal PAP therapy along with supplemental oxygen to maintain saturations at or above 90%. Patient's oxygenation status has improved 4. Acute kidney injury/rhabdomyolysis Likely prerenal in etiology. Rhabdomyolysis has improved with volume resuscitation. Nephrology has evaluated the patient. Patient still with marginal renal function. Bicarbonate is significantly improved 5. NSTEMI/history of coronary artery disease Most likely secondary to demand ischemia in the setting of the above. 6. History of pituitary macroadenoma status postresection/hypothyroidism/anemia/Parkinson's disease/obstructive sleep apnea Complicates care, management, recovery and prognosis. Continue nocturnal PAP therapy per home regimen. Continue baseline home medications as indicated. This note was generated with [employer] dictation software. It may contain incorrect words, spelling, and punctuation that were not noted in checking the note before signing. Subjective Subjective Patient has done well overall. Patient was transferred to the intensive care unit for hypotension yesterday, but no pressors have been required overnight. Patient has had a couple marginal blood pressures. Patient is complaining about his modified diet, but is not reporting any pain or shortness of breath. Patient is currently on room air and tolerating well. Objective Data Objective Data Vital Signs: Vital Signs Temp Pulse Resp BP Pulse Ox O2 Del Method O2 Flow Rate 36.5 C L 59 L 18 119/69 94 Nasal Cannula 3 05/10/23 06:00 05/10/23 07:08 05/10/23 07:08 05/10/23 06:00 05/10/23 07:08 05/10/23 07:08 05/10/23 07:08 FiO2 50 05/10/23 01:00 Oxygen Flow Rate (L/min) 3 Oxygen Delivery Method Nasal Cannula Weight: 81.7 kg Body Mass Index (BMI) 26.6 Intake & Output: Intake and Output for Last 24 Hours 05/08/23 05/09/23 05/10/23 23:59 23:59 23:59 Intake Total 100 / 100 3468.75 / 3468.75 60 / 60 Output Total 250 / 250 250 / 350 275 / 275 Balance -150 / -150 3218.75 / 3118.75 -215 / -215 Lab / Micro Data Attestation: I reviewed the patient's lab results. 05/10/23 05:00 05/10/23 05:00 Labs: Laboratory Results - last 24 hr 05/10/23 05:00: WBC 9.5, RBC 3.06 L, Hgb 9.2 L, Hct 28.7 L, MCV 93.8, MCH 30.1, MCHC 32.1, RDW Std Deviation 47.8 H, RDW Coeff of Delisa 14.1, Plt Count 115 L, MPV 9.6, Immature Gran % (Auto) 0.900, Neut % (Auto) 89.3 H, Lymph % (Auto) 5.3 L, [place] % (Auto) 4.2, Eos % (Auto) 0.1, Baso % (Auto) 0.2, Absolute Neuts (auto) 8.5 H, Absolute Lymphs (auto) 0.50 L, Nucleated RBC % 0, Differential Comment SCANNED, Anisocytosis 1+, Microcytosis 1+, Acanthocytes (Spur) RARE, Sodium 149 H, Potassium 3.6, Chloride 117 H, Carbon Dioxide 23.0, Anion Gap 9, BUN 77 H, Creatinine 6.25 H, Estim Creat Clear Calc 9.27, Est GFR (MDRD) Af Amer 11 L, Est GFR (MDRD) Non-Af 9 L, BUN/Creatinine Ratio 12.3, Glucose 118 H, Calcium 7.3 L Micro: Microbiology 05/08/23 15:15 Urine Catheter - [place] Urine Culture - Preliminary Culture exhibits no growth. 05/05/23 12:47 Urine, Catheterized Urine Culture - Final Enterococcus faecalis 05/05/23 13:15 Blood Culture (Wb) - Anticubital Left Blood Culture - Preliminary No growth in 48 hours. 05/05/23 12:47 Blood Culture (Wb) - Anticubital Right Blood Culture - Preliminary No growth in 48 hours. 05/05/23 17:50 Stool C. difficile DNA Amplification - Final 05/05/23 21:15 Stool Enteric Bacteriology - Final 05/05/23 17:50 Mucosa - Nasopharyngeal Coronavirus COVID-19 PCR - Final SARS-CoV-2 (COVID 19) 05/05/23 17:50 Mucosa - Nasopharyngeal Respiratory Panel (PCR) - Final 05/05/23 18:11 Urine Catheter - Catheter Legionella Antigen - Final 05/05/23 18:11 Urine Catheter - Catheter Streptococcus pneumoniae Antigen (M - Final Radiography Diagnostic Testing: Radiology Impression Carotid Duplex 05/06/23 03:27 Interpretation Summary Mild (<50%) stenosis right extracranial internal carotid. Mild (<50%) stenosis left extracranial internal carotid. The Left vertebral is patent and antegrade. Right vertebral artery is not visualized Limited study on right, alternative imaging ma be beneficial Ordering Physician: Antolin Vizcarra Referring Physician: García Trevino MD Performed By: Sepideh Hidalgo RVT Physical Exam Const alert and no apparent distress Constitutional Narrative: Remains pleasantly confused, but readily interactive. HEENT normocephalic and head/scalp atraumatic Eyes PERRL, EOMs intact bilaterally and conjunctivae normal Neck supple General: trachea midline Chest inspection of chest normal Resp normal respiratory effort and no use of accessory muscles Auscultation: Negative for rales, rhonchi or wheezes Cardio regular rate, regular rhythm, S1 normal heart sound and S2 normal heart sound GI normal to inspection, nondistended, normoactive bowel sounds Extremity no clubbing, cyanosis or edema Skin no rashes or lesions noted Neuro CN's II-XII intact bilaterally and no focal motor deficits Psych Mood & Affect: flat affect Charges/Coding Visit Charges Inpatient E&M: 45470 Subs Hosp L2
--- NOTE | 2023-05-10 12:17 | PN.RENAL_ITS ---
Subjective Subjective No new complaints today. He is appearing more alert. Urine output has improved. Breathing looks comfortable. Creatinine today is about the same. Electrolytes are acceptable. Bicarbonate has improved Objective Data Objective Data Vital Signs: Vital Signs Temp Pulse Resp BP Pulse Ox O2 Del Method O2 Flow Rate 97.7 F L 59 L 18 119/69 97 Nasal Cannula 2 05/10/23 06:00 05/10/23 07:08 05/10/23 07:08 05/10/23 06:00 05/10/23 08:00 05/10/23 08:00 05/10/23 08:00 FiO2 50 05/10/23 01:00 Oxygen Flow Rate (L/min) 2 Oxygen Delivery Method Nasal Cannula Weight: 81.7 kg Body Mass Index (BMI) 26.6 Intake & Output: Intake and Output for Last 24 Hours 05/08/23 05/09/23 05/10/23 23:59 23:59 23:59 Intake Total 100 / 100 3468.75 / 3468.75 60 / 60 Output Total 250 / 250 250 / 350 275 / 275 Balance -150 / -150 3218.75 / 3118.75 -215 / -215 Lab / Micro Data 05/10/23 05:00 05/10/23 05:00 Labs: Laboratory Results - last 24 hr 05/10/23 05:00: WBC 9.5, RBC 3.06 L, Hgb 9.2 L, Hct 28.7 L, MCV 93.8, MCH 30.1, MCHC 32.1, RDW Std Deviation 47.8 H, RDW Coeff of Delisa 14.1, Plt Count 115 L, MPV 9.6, Immature Gran % (Auto) 0.900, Neut % (Auto) 89.3 H, Lymph % (Auto) 5.3 L, [place] % (Auto) 4.2, Eos % (Auto) 0.1, Baso % (Auto) 0.2, Absolute Neuts (auto) 8.5 H, Absolute Lymphs (auto) 0.50 L, Nucleated RBC % 0, Differential Comment SCANNED, Anisocytosis 1+, Microcytosis 1+, Acanthocytes (Spur) RARE, Sodium 149 H, Potassium 3.6, Chloride 117 H, Carbon Dioxide 23.0, Anion Gap 9, BUN 77 H, Creatinine 6.25 H, Estim Creat Clear Calc 9.27, Est GFR (MDRD) Af Amer 11 L, Est GFR (MDRD) Non-Af 9 L, BUN/Creatinine Ratio 12.3, Glucose 118 H, Calcium 7.3 L Micro: Microbiology 05/08/23 15:15 Urine Catheter - Reina Urine Culture - Preliminary Culture exhibits no growth. 05/05/23 12:47 Urine, Catheterized Urine Culture - Final Enterococcus faecalis 05/05/23 13:15 Blood Culture (Wb) - Anticubital Left Blood Culture - Preliminary No growth in 48 hours. 05/05/23 12:47 Blood Culture (Wb) - Anticubital Right Blood Culture - Preliminary No growth in 48 hours. 05/05/23 17:50 Stool C. difficile DNA Amplification - Final 05/05/23 21:15 Stool Enteric Bacteriology - Final 05/05/23 17:50 Mucosa - Nasopharyngeal Coronavirus COVID-19 PCR - Final SARS-CoV-2 (COVID 19) 05/05/23 17:50 Mucosa - Nasopharyngeal Respiratory Panel (PCR) - Final 05/05/23 18:11 Urine Catheter - Catheter Legionella Antigen - Final 05/05/23 18:11 Urine Catheter - Catheter Streptococcus pneumoniae Antigen (M - Final Physical Exam Narrative no obvious distress no pallor no icterus no JVD s1s2 no murmurs lungs clear abdomen soft no organomegaly no edema no cyanosis reina + Assessment & Plan Assessment/Plan (1) GERTRUDE (acute kidney injury): PLAN: Baseline creatinine appears to be around 1.6 or so. Came in with a creatinine of more than 5, initially improved. Creatinine worsening again. Creatinine today is at 6.3, about the same as yesterday. Renal ultrasound without any hydronephrosis, increased echogenicity Urine analysis is not impressive, he did have blood in the urine consistent with rhabdomyolysis. Reina catheter indwelling with somewhat concentrated looking urine. Clinically no signs of volume overload. Hypotension is resolved, did not require pressors COVID-pneumonia, currently on treatment. Acute renal failure is likely due to ATN. CPK level was not high enough to cause GERTRUDE. He is making urine. Urine output has improved. Potassium levels, acid-base status is okay. Hold off on dialysis. Discussed with family at bedside discussed with ICU attending Hypokalemia. Repleted Acidosis. Improved Discussed with hospitalist
--- NOTE | 2023-05-10 13:29 | PCM.PN.HOSP ---
Reason for Visit Reason for Visit: Diagnoses Acute kidney failure, unspecified (05/05/23) Shock, unspecified (05/05/23) COVID-19 (05/05/23) Objective Data Objective Data Vital Signs: Vital Signs Temp Pulse Resp BP Pulse Ox O2 Del Method O2 Flow Rate 97.7 F L 59 L 18 119/69 97 Nasal Cannula 2 05/10/23 06:00 05/10/23 07:08 05/10/23 07:08 05/10/23 06:00 05/10/23 08:00 05/10/23 08:00 05/10/23 08:00 FiO2 50 05/10/23 01:00 Oxygen Flow Rate (L/min) 2 Oxygen Delivery Method Nasal Cannula Weight: 180 lb 1.883 oz Body Mass Index (BMI) 26.6 Intake & Output: Intake and Output for Last 24 Hours 05/08/23 05/09/23 05/10/23 23:59 23:59 23:59 Intake Total 100 / 100 3468.75 / 3468.75 60 / 60 Output Total 250 / 250 250 / 350 275 / 275 Balance -150 / -150 3218.75 / 3118.75 -215 / -215 Lab / Micro Data 05/10/23 05:00 05/10/23 05:00 Labs: Laboratory Results - last 24 hr 05/10/23 05:00: WBC 9.5, RBC 3.06 L, Hgb 9.2 L, Hct 28.7 L, MCV 93.8, MCH 30.1, MCHC 32.1, RDW Std Deviation 47.8 H, RDW Coeff of Delisa 14.1, Plt Count 115 L, MPV 9.6, Immature Gran % (Auto) 0.900, Neut % (Auto) 89.3 H, Lymph % (Auto) 5.3 L, [place] % (Auto) 4.2, Eos % (Auto) 0.1, Baso % (Auto) 0.2, Absolute Neuts (auto) 8.5 H, Absolute Lymphs (auto) 0.50 L, Nucleated RBC % 0, Differential Comment SCANNED, Anisocytosis 1+, Microcytosis 1+, Acanthocytes (Spur) RARE, Sodium 149 H, Potassium 3.6, Chloride 117 H, Carbon Dioxide 23.0, Anion Gap 9, BUN 77 H, Creatinine 6.25 H, Estim Creat Clear Calc 9.27, Est GFR (MDRD) Af Amer 11 L, Est GFR (MDRD) Non-Af 9 L, BUN/Creatinine Ratio 12.3, Glucose 118 H, Calcium 7.3 L Micro: Microbiology 05/08/23 15:15 Urine Catheter - Thompson Urine Culture - Preliminary Culture exhibits no growth. 05/05/23 12:47 Urine, Catheterized Urine Culture - Final Enterococcus faecalis 05/05/23 13:15 Blood Culture (Wb) - Anticubital Left Blood Culture - Preliminary No growth in 48 hours. 05/05/23 12:47 Blood Culture (Wb) - Anticubital Right Blood Culture - Preliminary No growth in 48 hours. 05/05/23 17:50 Stool C. difficile DNA Amplification - Final 05/05/23 21:15 Stool Enteric Bacteriology - Final 05/05/23 17:50 Mucosa - Nasopharyngeal Coronavirus COVID-19 PCR - Final SARS-CoV-2 (COVID 19) 05/05/23 17:50 Mucosa - Nasopharyngeal Respiratory Panel (PCR) - Final 05/05/23 18:11 Urine Catheter - Catheter Legionella Antigen - Final 05/05/23 18:11 Urine Catheter - Catheter Streptococcus pneumoniae Antigen (M - Final Physical Exam Narrative Seen and examined. Creatinine 6.25 no significant change but did not increase. Urine output 500 mL charted. Positive fluid balance 1.5 L. Patient is states that shortness of breath is better. No significant cough. Heart rate in 50s, sinus rhythm. Physical exam General: Awake, oriented x3 responding to verbal appropriately. HEENT: Bilateral hard of hearing atraumatic, PERRLA, EOMI, Normocephalic Oral: Oral mucosa moist. No Gingival or Mucosal Lesions/ Ulcerations Neck: Right CVC catheter. Supple, No JVD, Negative Carotid Bruits Lungs: Air entry diminished in bilateral lung bases. Mild bilateral fine wheezing. Cardiovascular: Sinus rhythm rhythm, Normal S1, Normal S2, No murmurs Abdomen: Bowel Sounds Present, Soft, Non Tender, Non-Distended : Thompson catheter, cloudy turbid urine. No renal angle tenderness. No suprapubic tenderness. Extremities: No edema, Capillary Refill Less than 3 Seconds Skin: No rashes, No breakdown Musculoskeletal: No Tenderness to Palpation of Joints or Extremities Neurological: Cranial nerves II-XII grossly intact, DTR 2+/4. No acute focal neurological deficit. Psych/Mental Status: Flat affect. Talking coherent Assessment & Plan Assessment/Plan (1) Shock: PLAN: Plan The patient is an 82 y/o M was admitted to ICU on 05/05/23 for being found on floor of unclear duration, hypoxia 64% on room air, BP 66/37, decreased mentation/AMS but arousable Patient complain of burning micturition for last 3 days. #1. Acute Encephalopathy, Multifactorial, most likely COVID-19 infectious/metabolic encephalopathy: Patient is being admitted in ICU. Continue IV fluid hydration at slow rate. Keep pulse ox more than 90%. Continue IV steroid. MRI brain is done, report not available. 2D echo is ordered. ECHO 12/25/2019 with normal LV systolic function, EF 60%, mildly enlarged LA, mild MVI, trivial TVI, trivial MARIANO, trivial PVI, RVSP 25 mmHg TSH and free T3 low but free T4 normal possible euthyroid sick syndrome. 05/10: Acute encephalopathy has resolved. 2. Hypotension, most likely due to intravascular volume depletion/hypovolemia, possibility of acute adrenal insufficiency: Patient on IV hydrocortisone 50 mg try to wean from tomorrow. Patient is off Levophed today. Patient has a right IJ CVC catheter. Patient on IV empiric antibiotic for suspected pneumonia. Patient was on Levophed for very short period of time currently off Levophed. 05/08: BP in 140s. Gradually weaning hydrocortisone,50 mg daily. Infectious work-up including enteric bacteriology panel, respiratory panel, are negative. Blood cultures negative for 48 hours. We will discontinue the antibiotic. I do not think septic shock reason for hypotension. Empiric antibiotics discontinued. 05/09: Patient was dizzy in the morning. Patient blood pressure was in 70s in the morning, 1 L Ringer lactate bolus given but patient blood pressure still in the 60s. Patient on hydrocortisone increased to 50 mg every 12 hourly. Net positive fluid balance 7.5 L. Dizziness resolved after IV fluid bolus but patient blood pressure is still low therefore transferred to ICU. 05/10: Patient did not require vasopressor support. Maintaining blood pressure 119/69 3. COVID-19 pneumonia with hypoxemia: Patient has COVID-19 pneumonia. Patient on IV steroid. Does not meet criteria for IV remdesivir. Serial troponin assays shows decreasing trend. Most likely acute myocardial injury from COVID-19 pneumonia due to increased demand. Patient is COVID PCR-positive. Patient has mild cough. Denies shortness of breath. Mild cough/choking sensation while drinking water with tingling sensation. 05/07: Continue antibiotic 4. Acute kidney injury and acute rhabdomyolysis likely due to ATN: Admission total creatinine kinase 3226 with lactic acidosis, acute kidney injury and transaminitis with elevated AST consistent with acute rhabdomyolysis.Admission BUN/Cr 44/5.39, prior baseline creatinine noted to be primarily 1.4-1.7, most recent 01/31/2023 creatinine 1.72. Monitor kidney function. Avoid nephrotoxic medications 05/07: Creatinine is still high 5.1. CPK level 812. Urine output about 600 mL yesterday and 360 mill since midnight. Urine is turbid looking. 05/08: Monitor kidney function.CK level better. First UA shows WBC, bacteria, mucus 0. [place] UA. Repeat UA, urine electrolytes, osmolality and urine culture ordered. Started on bicarb drip. Nephrology consult requested. 05/09 creatinine stable as compared to yesterday, 6.3. Urine is still cloudy. Urine shows RBC 10-25 cells, LE 25, WBC 0-5 cells. Nitrite negative. 3+ amorphous sediments. Urine electrolytes show sodium 13, creatinine 84, potassium 46. Chloride 18. Discussed with the legal stenographer. Kidney function is stabilized probably will not need dialysis. Renal ultrasound without hydronephrosis or increased echogenicity. 05/10: Urine output 500 mL. Creatinine 6.25, BUN 77. Discussed with the legal stenographer. #5. Acute liver injury possible due to ischemic hepatitis due to hypotension or infectious viral hepatitis: Admission CMP with T. bili 0.70, AST/LT 185/49, alk phos 76, last AST 01/31/2023 noted to be normal at 20. Monitor liver chemistry 05/09: Liver chemistry better. ALT 11 AST 83. #6. Lactic acidosis: Admission lactic acid 4.5, suspect multifactorial with rhabdomyolysis as well as acute kidney injury with respiratory failure, continue slow IV #7. CAD: Status post PCI x 6, continue aspirin, statin, per current list not on beta-nevaeh therapy however given hypotension this will be deferred. #8. 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 ED initiated TSH 0.27 however free T41.07, subclinical. #9. Chronic iron deficiency anemia: Admission hemoglobin 13.7, MCV 94, baseline hemoglobin recently 13-14, stable, continue iron supplementation and CBC trending. 05/10: Hemoglobin 9.2. #10. Parkinson's disease: We will continue patient home Sinemet regimen, complicates presentation, maintain on fall and aspiration precautions, PT/OT/case management consulted for discharge planning. #11. Anxiety and depression: continue patient home escitalopram regimen. #12. Hyperlipidemia: continue patient home statin therapy; however, if LFT rises 3x ULN will hold. #13. History ICH: Unclear history of event, current CT of the head with no acute intracranial findings as noted. #14. BPH: Per current list not on regimen, clarifying we will add if appropriate. #15. BENITA: Clarifying if patient uses CPAP nightly. #16. DVT prophylaxis: heparin. #17. 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 From discussions they are uncertain if living will and is in place. Discussed CODE status at length including difference between FULL code, DNR-CCA and DNR-CC status. Following discussions about the differences in these status, requested DNR-CCA, no intubation but amenable with central line being placed now her ED physician and pressors. Charges/Coding Visit Charges Inpatient E&M: 80896 [facility] Hosp L3
[2023-05-11] VITALS (16 sets, daily range): BP systolic 101–138; BP diastolic 61–76; PULSE 50–56; RESP 12–18; TEMP 36.4–37.1; O2SAT 97–100; BMI 26.9
[2023-05-11] MEDS: Levothyroxine 125 MCG Tablet PO (05:27)
[2023-05-11] MEDS: Carbidopa/Levodopa 25/100 Tablet PO ×3 (05:28→21:57)
[2023-05-11] MEDS: Menthol/Lanolin/Calamine/Znox 113 GM Tube 1 APPLIC TOPICAL ×3 (05:28→21:56)
[2023-05-11 05:42] LABS: Absolute Lymphocyte Count 0.53 X10^3/uL (0.83-4.51); Absolute Neutrophil Count 7.9 X10^3/uL (2.0-7.7); Basophil# 0.01 X10^3/uL; Basophil% 0.1 % (0-1); Eosinophil# 0.01 X10^3/uL; Eosinophils% 0.1 % (0-5); Hematocrit 25.9 % (40-54); Hemoglobin 8.1 g/dL (13.0-16.5); Lymphocyte # 0.53 X10^3/ul (0.83-4.51); Mean Corp Hgb Conc 31.3 g/dL (32-36); Mean Corpuscular Volume 95.9 fL (80-94); Mean Platelet Vol. 10.2 fl (6.2-12.0); Monocyte# 0.24 X10^3/uL; Monocyte% 2.7 % (0-10); NRBC Flagged by Analyzer 0 % (0-5); Neutrophil # 7.92 X10^3/uL (2.7-7.7); Neutrophil % 89.4 % (47-70); POSITIVE DIFFERENTIAL YES; Platelet Count 145 K/mm3 (150-450); RBC Distribution Width SD 49.1 fl (35.1-43.9); White Blood Count 8.9 K/mm3 (4.4-11.0)
[2023-05-11 05:45] LABS: Differential Indicated SCAN CRITERIA MET
[2023-05-11 06:01] LABS: Anion Gap 9 (5-15); BUN 81 mg/dL (7-18); BUN/Creat Ratio 13.5 RATIO (10-20); Calcium,Total 7.4 mg/dL (8.5-10.1); Chloride 116 mmol/L (98-107); Creatinine, Serum 6.01 mg/dL (0.70-1.30); EST Glomerular Filtration Rate 10 mL/min (>60); Est Glom Filt Rate - Afr Amer 12 mL/min (>60); Estimated Creatinine Clearance 9.64 ml/min; Glucose 133 mg/dL (74-106); Potassium 3.4 mmol/L (3.5-5.1); Sodium Level 147 mmol/L (136-145)
[2023-05-11 06:07] LABS: Differential Comment SCANNED
--- NOTE | 2023-05-11 07:21 | PCM.PN.INT ---
Assessment & Plan Assessment/Plan (1) Shock: (2) COVID-19: PLAN: Plan RECOMMENDATIONS: 1. Obtain swallow study with advancement of diet if tolerated 2. Discontinue stress dose steroids 3. Supplemental oxygen, if needed, to maintain saturations at or above 90%. 4. Encourage incentive spirometer use and mobilize patient as tolerated. 5. Hemodynamically stable on room air IMPRESSIONS: 1. Hypotension Resolved. The patient initially presented to the hospital in encephalopathic state with associated hypotension and hypoxemia. His presenting hypotension was likely the consequence of intravascular volume depletion coupled with potential adrenal insufficiency. Patient has been doing well since transfer to the intensive care unit. No pressors have been required. Hypotension may be improved secondary to control of metabolic acidosis. Discontinue stress dose steroids. 2. Encephalopathy Likely related to presenting infection with COVID-19 pneumonia. The patient does have Parkinson's disease with questionable dementia. He is alert and appropriate at the present time. Plan to continue to monitor the patient clinically. 3. Hypoxemia/COVID-19 pneumonia Resolved. Likely secondary to underlying COVID-19 pneumonia. In addition, the patient has an apparent history of obstructive sleep apnea and is supposed to be utilizing outpatient nocturnal PAP therapy. Recommend continuing nocturnal PAP therapy along with supplemental oxygen to maintain saturations at or above 90%. Patient's oxygenation status has improved. Given resolution of significant oxygen requirements, will sign off from a pulmonary/critical care perspective 4. Acute kidney injury/rhabdomyolysis Likely prerenal in etiology. Rhabdomyolysis has improved with volume resuscitation. Nephrology has evaluated the patient. Patient still with marginal renal function, but urine output is improving. Bicarbonate is significantly improved 5. NSTEMI/history of coronary artery disease Most likely secondary to demand ischemia in the setting of the above. 6. History of pituitary macroadenoma status postresection/hypothyroidism/anemia/Parkinson's disease/obstructive sleep apnea Complicates care, management, recovery and prognosis. Continue nocturnal PAP therapy per home regimen. Continue baseline home medications as indicated. This note was generated with [employer] dictation software. It may contain incorrect words, spelling, and punctuation that were not noted in checking the note before signing. Subjective Subjective Patient did okay overnight. No Levophed has been required. Patient has had some increased urine output noted. Patient reports some slight shortness of breath, but has been maintained on room air to 2 L/min. Objective Data Objective Data Vital Signs: Vital Signs Temp Pulse Resp BP Pulse Ox O2 Del Method O2 Flow Rate 36.7 C 56 L 17 131/62 H 100 Nasal Cannula 2 05/11/23 06:00 05/11/23 07:20 05/11/23 07:20 05/11/23 06:00 05/11/23 07:20 05/11/23 07:20 05/11/23 07:20 FiO2 50 05/10/23 01:00 Oxygen Flow Rate (L/min) 2 Oxygen Delivery Method Nasal Cannula Weight: 82.5 kg Body Mass Index (BMI) 26.9 Intake & Output: Intake and Output for Last 24 Hours 05/09/23 05/10/23 05/11/23 23:59 23:59 23:59 Intake Total 3468.75 / 3468.75 420 / 420 60 / 60 Output Total 250 / 350 1000 / 1000 Balance 3218.75 / 3118.75 -580 / -580 60 / 60 Lab / Micro Data Attestation: I reviewed the patient's lab results. 05/11/23 05:30 05/11/23 05:30 Labs: Laboratory Results - last 24 hr 05/11/23 05:30: WBC 8.9, RBC 2.70 L, Hgb 8.1 L, Hct 25.9 L, MCV 95.9 H, MCH 30.0, MCHC 31.3 L, RDW Std Deviation 49.1 H, RDW Coeff of Delisa 14.0, Plt Count 145 L, MPV 10.2, Immature Gran % (Auto) 1.700 H, Neut % (Auto) 89.4 H, Lymph % (Auto) 6.0 L, [place] % (Auto) 2.7, Eos % (Auto) 0.1, Baso % (Auto) 0.1, Absolute Neuts (auto) 7.9 H, Absolute Lymphs (auto) 0.53 L, Nucleated RBC % 0, Differential Comment SCANNED, Sodium 147 H, Potassium 3.4 L, Chloride 116 H, Carbon Dioxide 22.0, Anion Gap 9, BUN 81 H, Creatinine 6.01 H, Estim Creat Clear Calc 9.64, Est GFR (MDRD) Af Amer 12 L, Est GFR (MDRD) Non-Af 10 L, BUN/Creatinine Ratio 13.5, Glucose 133 H, Calcium 7.4 L Micro: Microbiology 05/05/23 13:15 Blood Culture (Wb) - Anticubital Left Blood Culture - Final No growth in 5 days. 05/05/23 12:47 Blood Culture (Wb) - Anticubital Right Blood Culture - Final No growth in 5 days. 05/08/23 15:15 Urine Catheter - Thompson Urine Culture - Preliminary Culture exhibits no growth. 05/05/23 12:47 Urine, Catheterized Urine Culture - Final Enterococcus faecalis 05/05/23 17:50 Stool C. difficile DNA Amplification - Final 05/05/23 21:15 Stool Enteric Bacteriology - Final 05/05/23 17:50 Mucosa - Nasopharyngeal Coronavirus COVID-19 PCR - Final SARS-CoV-2 (COVID 19) 05/05/23 17:50 Mucosa - Nasopharyngeal Respiratory Panel (PCR) - Final 05/05/23 18:11 Urine Catheter - Catheter Legionella Antigen - Final 05/05/23 18:11 Urine Catheter - Catheter Streptococcus pneumoniae Antigen (M - Final Physical Exam Const alert and no apparent distress Constitutional Narrative: Remains pleasantly confused, but readily interactive. Masked facies HEENT normocephalic and head/scalp atraumatic Eyes PERRL, EOMs intact bilaterally and conjunctivae normal Neck supple General: trachea midline Chest inspection of chest normal Resp normal respiratory effort and no use of accessory muscles Auscultation: Negative for rales, rhonchi or wheezes Cardio regular rate, regular rhythm, S1 normal heart sound and S2 normal heart sound GI normal to inspection, nondistended, normoactive bowel sounds Extremity no clubbing, cyanosis or edema Skin no rashes or lesions noted Neuro CN's II-XII intact bilaterally and no focal motor deficits Psych Mood & Affect: flat affect Charges/Coding Visit Charges Inpatient E&M: 93086 Subs Hosp L2
[2023-05-11] MEDS: Aspirin E.C. 81 MG Tablet PO (09:30)
[2023-05-11] MEDS: Escitalopram Oxalate 10 MG Tablet PO (09:31)
[2023-05-11] MEDS: Heparin Injection (Vial) 5,000 UNIT/ML VIAL 5000 UNIT SC ×2 (09:31→21:57)
[2023-05-11] MEDS: Hydrocortisone 10 MG Tablet PO ×2 (09:32→21:58)
--- NOTE | 2023-05-11 10:21 | CASEMGMT ---
Social Work SW met with pt daughter Ruby. SW updated that [facility] is able to accept pt. Precert has not been started yet but will be started when pt is closer to discharge. Ruby would prefer placement at [facility] and asks that SW will check with TCU when pt is ready for d/c to see if there has been a change and if they could then accept. SW spoke with Ruby regarding advance directives. SW explained what documents are and how they are completed. Dgt thinks pt may have completed these documents and will check at his home today and if she finds them will bring them in for scanning into the medical record. Pt informed dgt that if they cannot be found, she can contact SW to assist in completing documents. Dgt expressing understanding. CEDRIC Mccullough
--- NOTE | 2023-05-11 11:19 | ST.MBS ---
Modified Barium Swallow Patient Information Study Date: 05/11/23 Study Time: 09:30 Direct Billable Minutes: 116 Total Minutes procedure & reportin Diagnosis: Parkinson's disease (G20), GERD (K21.9) Referring Physician: Maikol Jimenez Reason for Referral: Objectively assess swallow function, assess risk for aspiration, and determine recommendations for least restrictive diet textures and compensatory strategies to improve safety of swallow. 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 He presented to [facility] ED on 05/05/23 with history of mechanical fall of unclear timeline found on the floor prompting EMS call with saturations noted to be initially 64% on room air with blood pressure 66/37 with patient arousable. He was placed on a nonrebreather with transition to the ED for evaluation. CT of the brain with chronic involutional changes with pansinusitis, CT cervical spine with multilevel degenerative changes, chest x-ray with no acute cardiopulmonary findings. He was admitted to the hospital and managed for COVID-19 PNA, hypoxemia, and shock amongst other problems. He was referred for speech therapy consult to assess swallow function. He was initially placed on puree textures / thin liquids with downgrade to puree textures / nectar thick liquids. OPERATOR TECHNICIAN made the patient NPO at bedside 05/10/2023 due to poor diet tolerance and recommended the patient participate in MBSS to objectively assess swallow function and aspiration risk. Per family, the patient has had swallowing difficulty since 2019 when he had surgery on his pituitary gland. Current Diet Ordered: NPO Dentition: Decay and Missing Teeth Mental Status: Impaired (memory impairment per PMH) Respiratory Status: Oxygenating on 2L/M nasal cannula Penetration-Aspiration Scale Penetration-Aspiration Scale: OBJECTIVE ASSESSMENT OF SWALLOW FUNCTION (QUANTITATIVE ? PER TRIAL): PENETRATION / ASPIRATION SCALE (MILLS): 1 = does not enter airway 2 = enters airway/above vocal folds/ejected 3 = enters airway/above vocal folds/not ejected 4 = enters airway/contacts vocal folds/ejected 5 = enters airway/contacts vocal folds/not ejected 6 = enters airway/below vocal folds/ejected 7 = enters airway/below vocal folds/not ejected despite effort 8 = enters airway/below vocal folds/no effort VIDEOFLOROSCOPIC SCALE SCORE (MILLS): Grade I = aspiration of material that has penetrated into the laryngeal vestibule, intact cough reflex Grade II = aspiration < 10 % of the bolus, intact cough reflex Grade III = aspiration of < 10 % of the bolus, reduced cough reflex or aspiration of > 10 % of the bolus, intact cough reflex Grade IV = aspiration of > 10 % of the bolus, reduced cough reflex Penetration-Aspiration Scale Score Thin Liquid via teaspoon: Result: 7= enters airways/below vocal folds/not ejected despite effort Thin Liquid via teaspoon Effortful swallow: Result: 7= enters airways/below vocal folds/not ejected despite effort [place] thick liquid via teaspoon with double swallow: Result: 3= enters airways/above vocal folds/not ejected Pudding via teaspoon with double swallow and esophageal screen: Result: 1= does not enter airway Comment: SILENT post prandial aspiration of previous trial observed before the swallow Honey Thick Liquid via teaspoon Double swallow: Result: 2= enter airway/above vocal folds/ejected Thin Liquid via teaspoon Chin tuck: Result: 3= enters airways/above vocal folds/not ejected Thin liquid via cup Chin tuck: Result: 5= enters airways/contacts vocal folds/not ejected Oral Phase Labial Seal: Escape beyond mid-chin Tongue Control During Bolus Hold: Posterior escape of less than half of bolus Bolus Transport/Lingual Motion: Repetitive/disorganized tongue motion Oral Residue: Residue collection on oral structures Pharyngeal Phase Initiation of Pharyngeal Swallow: Bolus head in pyriforms Soft Palate Elevation: No bolus between soft palate and pharyngeal wall Laryngeal Elevation: Partial superior movement thyroid cart/partial apprx aryt-epig petiole Anterior Hyoid Excursion: Partial anterior movement Epiglottic Movement: No inversion (little to no inversion) Laryngeal Vestibule Closure at Height of Swallow: Incomplete; narrow column of air/contrast in laryngeal vestibule Pharyngeal Stripping Wave: Present - diminished Pharyngoesophageal Segment Opening: Parital distension and partial duration; parital obstruction of flow Tongue Base Retraction: Wide column of contrast between tongue base & post. pharyngeal wall Pharyngeal Residue: Majority of contrast within or on pharyngeal structures Esophageal Phase Esophageal Clearance: Esophageal retention Diagnosis/Impression Diagnosis: Moderate-severe oropharyngeal phase dysphagia (R13.12) Impression: The oral phase is primarily marked by... -Lingual pumping for A-P transport. -Mild-moderate oral residue after the swallow. -Did not test cookie due to choking concerns with poor pharyngeal clearance. The pharyngeal phase is primarily marked by... -Decreased airway closure due to decreased anterior hyoid excursion, laryngeal elevation. -Moderate-severe pharyngeal residues due to poor pharyngeal contraction and tongue base retraction, most notable in honey thick and pudding thick textures, placing patient at increased risk for post prandial aspiration. -Aspiration of thin liquids via teaspoon. SILENT post prandial aspiration of nectar thick liquids. Trace laryngeal penetration without full ejection of thin liquids with use of chin tuck, reflexive cough did clear a majority of this penetrated contrast. The esophageal phase is primarily marked by... -Narrow upper esophagus. -Esophageal retention of pudding in mid esophagus. Recommendations Diet: Puree Textures (MOIST purees only) and Thin Liquids Comment: Meds crushed in puree, Cough and re-swallow if wet vocal quality, Oral care after meals Compensatory Strategies: Small Bites (Double swallow on each bite), Small Sips (chin tuck and double swallow on each sip), Slow Rate, Alternate bites/solids and sips/liquids, Sitting upright and Remain sitting upright for 30 minutes after PO intake Supervision: 1:1 Close Supervision (for ALL food and drink) Recommend Repeat Modified Barium Swallow: Yes (Repeat MBSS in 2-4 weeks to consider the patient for diet advancement after implementation of oropharyngeal exercise program) Need for Skilled Speech Therapy Services: Yes Comment: Will recommend the patient for continued dysphagia therapy to address deficits in oropharyngeal swallow function. Will recommend the patient for oropharyngeal strengthening to improve hyolaryngeal elevation/excursion, pharyngeal contraction, tongue base retraction, and duration of UES opening (Effortful swallow, CTAR, [place], [place] [if able to tolerate]). The patient and family would benefit from thorough education regarding diet recommendations and recommended compensatory strategies. OPERATOR TECHNICIAN to monitor respiratory status closely. Recommended Referrals: GI Consult (decreased opening/duration of UES, narrow upper esophagus, esophageal retention) Education Completed: 1. Described result of evaluation., 2. Pt understands evaluation & agrees with goals and treatment plan., 4. Family/caregivers understand evaluation & agree w/ goals & tx plan. and 7. Pt requires further education on strategies & risks. Status Active ST Patient: Active Contact Information [facility] Speech Therapy:: Anuradha Richards M.A. [facility]-OPERATOR TECHNICIAN Speech-Language Pathologist [facility] [address] [place], [place] [address] [email or web address] [phone]
--- NOTE | 2023-05-11 11:43 | PCM.PN.HOSP ---
Subjective Subjective Doing well, no issues overnight Objective Data Objective Data Vital Signs: Vital Signs Temp Pulse Resp BP Pulse Ox O2 Del Method O2 Flow Rate 97.9 F 56 L 12 132/71 H 99 Nasal Cannula 2 05/11/23 09:58 05/11/23 09:58 05/11/23 09:58 05/11/23 09:58 05/11/23 09:58 05/11/23 09:58 05/11/23 09:58 FiO2 50 05/10/23 01:00 Oxygen Flow Rate (L/min) 2 Oxygen Delivery Method Nasal Cannula Weight: 181 lb 14.102 oz Body Mass Index (BMI) 26.9 Intake & Output: Intake and Output for Last 24 Hours 05/10/23 05/11/23 05/12/23 03:59 03:59 03:59 Intake Total 2318.75 / 2318.75 420 / 420 60 / 60 Output Total 350 / 350 900 / 900 300 / 300 Balance 1968.75 / 1968.75 -480 / -480 -240 / -240 Lab / Micro Data 05/11/23 05:30 05/11/23 05:30 Labs: Laboratory Results - last 24 hr 05/11/23 05:30: WBC 8.9, RBC 2.70 L, Hgb 8.1 L, Hct 25.9 L, MCV 95.9 H, MCH 30.0, MCHC 31.3 L, RDW Std Deviation 49.1 H, RDW Coeff of Delisa 14.0, Plt Count 145 L, MPV 10.2, Immature Gran % (Auto) 1.700 H, Neut % (Auto) 89.4 H, Lymph % (Auto) 6.0 L, [place] % (Auto) 2.7, Eos % (Auto) 0.1, Baso % (Auto) 0.1, Absolute Neuts (auto) 7.9 H, Absolute Lymphs (auto) 0.53 L, Nucleated RBC % 0, Differential Comment SCANNED, Sodium 147 H, Potassium 3.4 L, Chloride 116 H, Carbon Dioxide 22.0, Anion Gap 9, BUN 81 H, Creatinine 6.01 H, Estim Creat Clear Calc 9.64, Est GFR (MDRD) Af Amer 12 L, Est GFR (MDRD) Non-Af 10 L, BUN/Creatinine Ratio 13.5, Glucose 133 H, Calcium 7.4 L Micro: Microbiology 05/08/23 15:15 Urine Catheter - Thompson Urine Culture - Final Culture exhibits no growth. 05/05/23 13:15 Blood Culture (Wb) - Anticubital Left Blood Culture - Final No growth in 5 days. 05/05/23 12:47 Blood Culture (Wb) - Anticubital Right Blood Culture - Final No growth in 5 days. 05/05/23 12:47 Urine, Catheterized Urine Culture - Final Enterococcus faecalis 05/05/23 17:50 Stool C. difficile DNA Amplification - Final 05/05/23 21:15 Stool Enteric Bacteriology - Final 05/05/23 17:50 Mucosa - Nasopharyngeal Coronavirus COVID-19 PCR - Final SARS-CoV-2 (COVID 19) 05/05/23 17:50 Mucosa - Nasopharyngeal Respiratory Panel (PCR) - Final 05/05/23 18:11 Urine Catheter - Catheter Legionella Antigen - Final 05/05/23 18:11 Urine Catheter - Catheter Streptococcus pneumoniae Antigen (M - Final Physical Exam Narrative General: Alert, confused, Cooperative, No apparent distress HEENT: Atraumatic, PERRLA, EOMI, Normocephalic Oral: Moist Mucosa Neck: Supple, No JVD Lungs: Diminished, Normal air movement, No rhonchi, No wheeze, No rales Cardiovascular: Regular rate, Regular Rhythm, Normal S1, Normal S2, No murmurs Abdomen: Soft, Non Tender, Non-Distended, No Hepato-splenomegaly Extremities: No edema, Capillary Refill Less than 3 Seconds Skin: No rashes, No breakdown Musculoskeletal: No Tenderness to Palpation of Joints or Extremities Neurological: Motor Exam 5/5 strength throughout, Sensory exam intact to light touch and pain Psych/Mental Status: Flat Assessment & Plan Assessment/Plan (1) Shock: PLAN: Plan #1. Acute Encephalopathy, Multifactorial, most likely COVID-19 infectious/metabolic encephalopathy: Patient is being admitted in ICU. Continue IV fluid hydration at slow rate. Keep pulse ox more than 90%. Continue IV steroid. MRI brain is done, report not available. 2D echo is ordered. ECHO 12/25/2019 with normal LV systolic function, EF 60%, mildly enlarged LA, mild MVI, trivial TVI, trivial MARIANO, trivial PVI, RVSP 25 mmHg TSH and free T3 low but free T4 normal possible euthyroid sick syndrome. 05/10: Acute encephalopathy has resolved. 05/11/2023: Likely has some baseline dementia exacerbated by his COVID infection 2. Hypotension, most likely due to intravascular volume depletion/hypovolemia, possibility of acute adrenal insufficiency: Patient on IV hydrocortisone 50 mg try to wean from tomorrow. Patient is off Levophed today. Patient has a right IJ CVC catheter. Patient on IV empiric antibiotic for suspected pneumonia. Patient was on Levophed for very short period of time currently off Levophed. 05/08: BP in 140s. Gradually weaning hydrocortisone,50 mg daily. Infectious work-up including enteric bacteriology panel, respiratory panel, are negative. Blood cultures negative for 48 hours. We will discontinue the antibiotic. I do not think septic shock reason for hypotension. Empiric antibiotics discontinued. 05/09: Patient was dizzy in the morning. Patient blood pressure was in 70s in the morning, 1 L Ringer lactate bolus given but patient blood pressure still in the 60s. Patient on hydrocortisone increased to 50 mg every 12 hourly. Net positive fluid balance 7.5 L. Dizziness resolved after IV fluid bolus but patient blood pressure is still low therefore transferred to ICU. 05/10: Patient did not require vasopressor support. Maintaining blood pressure 119/69 05/11/2023: Resolved 3. COVID-19 pneumonia with hypoxemia: Patient has COVID-19 pneumonia. Patient on IV steroid. Does not meet criteria for IV remdesivir. Serial troponin assays shows decreasing trend. Most likely acute myocardial injury from COVID-19 pneumonia due to increased demand. Patient is COVID PCR-positive. Patient has mild cough. Denies shortness of breath. Mild cough/choking sensation while drinking water with tingling sensation. 05/07: Continue antibiotic 05/11/2023: Off antibiotics and off of stress dose steroids we will continue to monitor likely need SNF placement 4. Acute kidney injury and acute rhabdomyolysis likely due to ATN: Admission total creatinine kinase 3226 with lactic acidosis, acute kidney injury and transaminitis with elevated AST consistent with acute rhabdomyolysis.Admission BUN/Cr 44/5.39, prior baseline creatinine noted to be primarily 1.4-1.7, most recent 01/31/2023 creatinine 1.72. Monitor kidney function. Avoid nephrotoxic medications 05/07: Creatinine is still high 5.1. CPK level 812. Urine output about 600 mL yesterday and 360 mill since midnight. Urine is turbid looking. 05/08: Monitor kidney function.CK level better. First UA shows WBC, bacteria, mucus 0. [place] UA. Repeat UA, urine electrolytes, osmolality and urine culture ordered. Started on bicarb drip. Nephrology consult requested. 05/09 creatinine stable as compared to yesterday, 6.3. Urine is still cloudy. Urine shows RBC 10-25 cells, LE 25, WBC 0-5 cells. Nitrite negative. 3+ amorphous sediments. Urine electrolytes show sodium 13, creatinine 84, potassium 46. Chloride 18. Discussed with the pollution control engineer. Kidney function is stabilized probably will not need dialysis. Renal ultrasound without hydronephrosis or increased echogenicity. 05/10: Urine output 500 mL. Creatinine 6.25, BUN 77. Discussed with the pollution control engineer. 5. Acute liver injury possible due to ischemic hepatitis due to hypotension or infectious viral hepatitis: Admission CMP with T. bili 0.70, AST/LT 185/49, alk phos 76, last AST 01/31/2023 noted to be normal at 20. Monitor liver chemistry 05/09: Liver chemistry better. ALT 11 AST 83. 6. Lactic acidosis: Admission lactic acid 4.5, suspect multifactorial with rhabdomyolysis as well as acute kidney injury with respiratory failure, continue slow IV 7. CAD: Status post PCI x 6, continue aspirin, statin, per current list not on beta-nevaeh therapy however given hypotension this will be deferred. 8. 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 ED initiated TSH 0.27 however free T41.07, subclinical. #9. Chronic iron deficiency anemia: Admission hemoglobin 13.7, MCV 94, baseline hemoglobin recently 13-14, stable, continue iron supplementation and CBC trending. 05/10: Hemoglobin 9.2. #10. Parkinson's disease: We will continue patient home Sinemet regimen, complicates presentation, maintain on fall and aspiration precautions, PT/OT/case management consulted for discharge planning. #11. Anxiety and depression: continue patient home escitalopram regimen. #12. Hyperlipidemia: continue patient home statin therapy; however, if LFT rises 3x ULN will hold. #13. History ICH: Unclear history of event, current CT of the head with no acute intracranial findings as noted. #14. BPH: Per current list not on regimen, clarifying we will add if appropriate. #15. BENITA: Clarifying if patient uses CPAP nightly. #16. DVT prophylaxis: heparin. Charges/Coding Visit Charges Inpatient E&M: 13024 Subs Hosp L2
[2023-05-11] MEDS: guaiFENesin 10 ML UDC (200MG/10ML) PO ×2 (12:05→14:56)
--- NOTE | 2023-05-11 12:47 | PCM.PN.REN ---
Subjective Subjective No new events. Good urine output Objective Data Objective Data Vital Signs: Vital Signs Temp Pulse Resp BP Pulse Ox O2 Del Method O2 Flow Rate 97.9 F 56 L 12 132/71 H 99 Nasal Cannula 2 05/11/23 09:58 05/11/23 09:58 05/11/23 11:52 05/11/23 09:58 05/11/23 09:58 05/11/23 11:52 05/11/23 11:52 FiO2 50 05/10/23 01:00 Oxygen Flow Rate (L/min) 2 Oxygen Delivery Method Nasal Cannula Weight: 82.5 kg Body Mass Index (BMI) 26.9 Intake & Output: Intake and Output for Last 24 Hours 05/09/23 05/10/23 05/11/23 23:59 23:59 23:59 Intake Total 3468.75 / 3468.75 420 / 420 60 / 60 Output Total 250 / 350 1000 / 1000 300 / 300 Balance 3218.75 / 3118.75 -580 / -580 -240 / -240 Lab / Micro Data 05/11/23 05:30 05/11/23 05:30 Labs: Laboratory Results - last 24 hr 05/11/23 05:30: WBC 8.9, RBC 2.70 L, Hgb 8.1 L, Hct 25.9 L, MCV 95.9 H, MCH 30.0, MCHC 31.3 L, RDW Std Deviation 49.1 H, RDW Coeff of [place]isa 14.0, Plt Count 145 L, MPV 10.2, Immature Gran % (Auto) 1.700 H, Neut % (Auto) 89.4 H, Lymph % (Auto) 6.0 L, [place] % (Auto) 2.7, Eos % (Auto) 0.1, Baso % (Auto) 0.1, Absolute Neuts (auto) 7.9 H, Absolute Lymphs (auto) 0.53 L, Nucleated RBC % 0, Differential Comment SCANNED, Sodium 147 H, Potassium 3.4 L, Chloride 116 H, Carbon Dioxide 22.0, Anion Gap 9, BUN 81 H, Creatinine 6.01 H, Estim Creat Clear Calc 9.64, Est GFR (MDRD) Af Amer 12 L, Est GFR (MDRD) Non-Af 10 L, BUN/Creatinine Ratio 13.5, Glucose 133 H, Calcium 7.4 L Micro: Microbiology 05/08/23 15:15 Urine Catheter - Thompson Urine Culture - Final Culture exhibits no growth. 05/05/23 13:15 Blood Culture (Wb) - Anticubital Left Blood Culture - Final No growth in 5 days. 05/05/23 12:47 Blood Culture (Wb) - Anticubital Right Blood Culture - Final No growth in 5 days. 05/05/23 12:47 Urine, Catheterized Urine Culture - Final Enterococcus faecalis 05/05/23 17:50 Stool C. difficile DNA Amplification - Final 05/05/23 21:15 Stool Enteric Bacteriology - Final 05/05/23 17:50 Mucosa - Nasopharyngeal Coronavirus COVID-19 PCR - Final SARS-CoV-2 (COVID 19) 05/05/23 17:50 Mucosa - Nasopharyngeal Respiratory Panel (PCR) - Final 05/05/23 18:11 Urine Catheter - Catheter Legionella Antigen - Final 05/05/23 18:11 Urine Catheter - Catheter Streptococcus pneumoniae Antigen (M - Final Physical Exam Narrative Exam minimize due to COVID Assessment & Plan Assessment/Plan (1) GERTRUDE (acute kidney injury): PLAN: Baseline creatinine appears to be around 1.6 or so. Came in with a creatinine of more than 5, initially improved. Creatinine worsening again. Creatinine today is at 6.3, about the same as yesterday. Renal ultrasound without any hydronephrosis, increased echogenicity Urine analysis is not impressive, he did have blood in the urine consistent with rhabdomyolysis. Thompson catheter indwelling with somewhat concentrated looking urine. Clinically no signs of volume overload. Hypotension is resolved, did not require pressors COVID-pneumonia, currently on treatment. Acute renal failure is likely due to ATN. CPK level was not high enough to cause GERTRUDE. He is making urine. Urine output has improved. Potassium levels, acid-base status is okay. Likely recovering Hypokalemia. Repleted Acidosis. Improved
[2023-05-11] MEDS: Budesonide Respules 0.5 MG/2 ML AMPUL.NEB. INHALATION (20:01)
[2023-05-11] MEDS: Ondansetron 4 MG/2 ML Vial IV (21:58)
[2023-05-12] VITALS (7 sets, daily range): BP systolic 117–133; BP diastolic 62–75; PULSE 53–58; RESP 16–20; TEMP 36.2–36.7; O2SAT 95–98; BMI 26.6
[2023-05-12] MEDS: Menthol/Lanolin/Calamine/Znox 113 GM Tube 1 APPLIC TOPICAL ×3 (05:21→20:43)
[2023-05-12] MEDS: Levothyroxine 125 MCG Tablet PO (05:22)
[2023-05-12] MEDS: Carbidopa/Levodopa 25/100 Tablet PO ×3 (05:22→20:41)
[2023-05-12] MEDS: guaiFENesin 10 ML UDC (200MG/10ML) PO ×2 (05:27→15:05)
[2023-05-12 05:58] LABS: Anion Gap 6 (5-15); BUN 82 mg/dL (7-18); BUN/Creat Ratio 14.3 RATIO (10-20); Calcium,Total 7.6 mg/dL (8.5-10.1); Chloride 117 mmol/L (98-107); Creatinine, Serum 5.75 mg/dL (0.70-1.30); EST Glomerular Filtration Rate 10 mL/min (>60); Est Glom Filt Rate - Afr Amer 12 mL/min (>60); Estimated Creatinine Clearance 10.08 ml/min; Glucose 106 mg/dL (74-106); Potassium 3.2 mmol/L (3.5-5.1); Sodium Level 147 mmol/L (136-145)
[2023-05-12] MEDS: Budesonide Respules 0.5 MG/2 ML AMPUL.NEB. INHALATION ×2 (07:47→20:14)
[2023-05-12] MEDS: Heparin Injection (Vial) 5,000 UNIT/ML VIAL 5000 UNIT SC ×2 (09:47→20:43)
[2023-05-12] MEDS: Aspirin E.C. 81 MG Tablet PO (09:48)
[2023-05-12] MEDS: Escitalopram Oxalate 10 MG Tablet PO (09:49)
[2023-05-12] MEDS: Hydrocortisone 10 MG Tablet PO ×2 (09:49→20:42)
--- NOTE | 2023-05-12 11:07 | PCM.PN.HOSP ---
Subjective Subjective Doing well, no issues overnight Objective Data Objective Data Vital Signs: Vital Signs Temp Pulse Resp BP Pulse Ox O2 Del Method O2 Flow Rate 98.0 F 55 L 18 117/62 96 Room Air 1 05/12/23 04:00 05/12/23 07:47 05/12/23 09:00 05/12/23 04:00 05/12/23 09:00 05/12/23 09:00 05/12/23 07:47 FiO2 50 05/10/23 01:00 Oxygen Flow Rate (L/min) 1 Oxygen Delivery Method Room Air Weight: 180 lb 8.937 oz Body Mass Index (BMI) 26.6 Intake & Output: Intake and Output for Last 24 Hours 05/11/23 05/12/23 05/13/23 03:59 03:59 03:59 Intake Total 420 / 420 60 / 60 Output Total 900 / 900 300 / 300 300 / 300 Balance -480 / -480 -240 / -240 -300 / -300 Lab / Micro Data 05/11/23 05:30 05/12/23 05:30 Labs: Laboratory Results - last 24 hr 05/12/23 05:30: Sodium 147 H, Potassium 3.2 L, Chloride 117 H, Carbon Dioxide 24.0, Anion Gap 6, BUN 82 H, Creatinine 5.75 H, Estim Creat Clear Calc 10.08, Est GFR (MDRD) Af Amer 12 L, Est GFR (MDRD) Non-Af 10 L, BUN/Creatinine Ratio 14.3, Glucose 106, Calcium 7.6 L Micro: Microbiology 05/08/23 15:15 Urine Catheter - Thompson Urine Culture - Final Culture exhibits no growth. 05/05/23 13:15 Blood Culture (Wb) - Anticubital Left Blood Culture - Final No growth in 5 days. 05/05/23 12:47 Blood Culture (Wb) - Anticubital Right Blood Culture - Final No growth in 5 days. 05/05/23 12:47 Urine, Catheterized Urine Culture - Final Enterococcus faecalis 05/05/23 17:50 Stool C. difficile DNA Amplification - Final 05/05/23 21:15 Stool Enteric Bacteriology - Final 05/05/23 17:50 Mucosa - Nasopharyngeal Coronavirus COVID-19 PCR - Final SARS-CoV-2 (COVID 19) 05/05/23 17:50 Mucosa - Nasopharyngeal Respiratory Panel (PCR) - Final 05/05/23 18:11 Urine Catheter - Catheter Legionella Antigen - Final 05/05/23 18:11 Urine Catheter - Catheter Streptococcus pneumoniae Antigen (M - Final Physical Exam Narrative General: Alert, confused, Cooperative, No apparent distress HEENT: Atraumatic, PERRLA, EOMI, Normocephalic Oral: Moist Mucosa Neck: Supple, No JVD Lungs: Diminished, Normal air movement, No rhonchi, No wheeze, No rales Cardiovascular: Regular rate, Regular Rhythm, Normal S1, Normal S2, No murmurs Abdomen: Soft, Non Tender, Non-Distended, No Hepato-splenomegaly Extremities: No edema, Capillary Refill Less than 3 Seconds Skin: No rashes, No breakdown Musculoskeletal: No Tenderness to Palpation of Joints or Extremities Neurological: Motor Exam 5/5 strength throughout, Sensory exam intact to light touch and pain Psych/Mental Status: Flat Assessment & Plan Assessment/Plan (1) Shock: PLAN: Plan #1. Acute Encephalopathy, Multifactorial, most likely COVID-19 infectious/metabolic encephalopathy: Patient is being admitted in ICU. Continue IV fluid hydration at slow rate. Keep pulse ox more than 90%. Continue IV steroid. MRI brain is done, report not available. 2D echo is ordered. ECHO 12/25/2019 with normal LV systolic function, EF 60%, mildly enlarged LA, mild MVI, trivial TVI, trivial MARIANO, trivial PVI, RVSP 25 mmHg TSH and free T3 low but free T4 normal possible euthyroid sick syndrome. 05/10: Acute encephalopathy has resolved. 05/11/2023: Likely has some baseline dementia exacerbated by his COVID infection 2. Hypotension, most likely due to intravascular volume depletion/hypovolemia, possibility of acute adrenal insufficiency: Patient on IV hydrocortisone 50 mg try to wean from tomorrow. Patient is off Levophed today. Patient has a right IJ CVC catheter. Patient on IV empiric antibiotic for suspected pneumonia. Patient was on Levophed for very short period of time currently off Levophed. 05/08: BP in 140s. Gradually weaning hydrocortisone,50 mg daily. Infectious work-up including enteric bacteriology panel, respiratory panel, are negative. Blood cultures negative for 48 hours. We will discontinue the antibiotic. I do not think septic shock reason for hypotension. Empiric antibiotics discontinued. 05/09: Patient was dizzy in the morning. Patient blood pressure was in 70s in the morning, 1 L Ringer lactate bolus given but patient blood pressure still in the 60s. Patient on hydrocortisone increased to 50 mg every 12 hourly. Net positive fluid balance 7.5 L. Dizziness resolved after IV fluid bolus but patient blood pressure is still low therefore transferred to ICU. 05/10: Patient did not require vasopressor support. Maintaining blood pressure 119/69 05/11/2023: Resolved 3. COVID-19 pneumonia with hypoxemia: Patient has COVID-19 pneumonia. Patient on IV steroid. Does not meet criteria for IV remdesivir. Serial troponin assays shows decreasing trend. Most likely acute myocardial injury from COVID-19 pneumonia due to increased demand. Patient is COVID PCR-positive. Patient has mild cough. Denies shortness of breath. Mild cough/choking sensation while drinking water with tingling sensation. 05/07: Continue antibiotic 05/11/2023: Off antibiotics and off of stress dose steroids we will continue to monitor likely need SNF placement 4. Acute kidney injury and acute rhabdomyolysis likely due to ATN: Admission total creatinine kinase 3226 with lactic acidosis, acute kidney injury and transaminitis with elevated AST consistent with acute rhabdomyolysis.Admission BUN/Cr 44/5.39, prior baseline creatinine noted to be primarily 1.4-1.7, most recent 01/31/2023 creatinine 1.72. Monitor kidney function. Avoid nephrotoxic medications 05/07: Creatinine is still high 5.1. CPK level 812. Urine output about 600 mL yesterday and 360 mill since midnight. Urine is turbid looking. 05/08: Monitor kidney function.CK level better. First UA shows WBC, bacteria, mucus 0. [place] UA. Repeat UA, urine electrolytes, osmolality and urine culture ordered. Started on bicarb drip. Nephrology consult requested. 05/09 creatinine stable as compared to yesterday, 6.3. Urine is still cloudy. Urine shows RBC 10-25 cells, LE 25, WBC 0-5 cells. Nitrite negative. 3+ amorphous sediments. Urine electrolytes show sodium 13, creatinine 84, potassium 46. Chloride 18. Discussed with the cloth mercerizing supervisor. Kidney function is stabilized probably will not need dialysis. Renal ultrasound without hydronephrosis or increased echogenicity. 05/10: Urine output 500 mL. Creatinine 6.25, BUN 77. Discussed with the cloth mercerizing supervisor. 05/12/2023: Renal function is slowly and proving we will continue to monitor appreciate nephrology 5. Acute liver injury possible due to ischemic hepatitis due to hypotension or infectious viral hepatitis: Admission CMP with T. bili 0.70, AST/LT 185/49, alk phos 76, last AST 01/31/2023 noted to be normal at 20. Monitor liver chemistry 05/09: Liver chemistry better. ALT 11 AST 83. 6. Lactic acidosis: Admission lactic acid 4.5, suspect multifactorial with rhabdomyolysis as well as acute kidney injury with respiratory failure, continue slow IV 7. CAD: Status post PCI x 6, continue aspirin, statin, per current list not on beta-nevaeh therapy however given hypotension this will be deferred. 8. 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 ED initiated TSH 0.27 however free T41.07, subclinical. #9. Chronic iron deficiency anemia: Admission hemoglobin 13.7, MCV 94, baseline hemoglobin recently 13-14, stable, continue iron supplementation and CBC trending. 05/10: Hemoglobin 9.2. #10. Parkinson's disease: We will continue patient home Sinemet regimen, complicates presentation, maintain on fall and aspiration precautions, PT/OT/case management consulted for discharge planning. #11. Anxiety and depression: continue patient home escitalopram regimen. #12. Hyperlipidemia: continue patient home statin therapy; however, if LFT rises 3x ULN will hold. #13. History ICH: Unclear history of event, current CT of the head with no acute intracranial findings as noted. #14. BPH: Per current list not on regimen, clarifying we will add if appropriate. #15. BENITA: Clarifying if patient uses CPAP nightly. DVT prophylaxis: heparin. Charges/Coding Visit Charges Inpatient E&M: 69698 Subs Hosp L2
--- NOTE | 2023-05-12 11:30 | CASEMGMT ---
Social Work Pt's daughter brought in pt's living will and health care POA. Primary decision maker is his who is . Alternate decision makers are his son Colton Marshall and Daughter Ruby Marshall. Copies of documents are placed on pt chart. CEDRIC Mccullough
--- NOTE | 2023-05-12 13:28 | PCM.PN.REN ---
Subjective Subjective no new events Objective Data Objective Data Vital Signs: Vital Signs Temp Pulse Resp BP Pulse Ox O2 Del Method O2 Flow Rate 97.6 F L 55 L 16 132/67 H 96 Room Air 1 05/12/23 10:00 05/12/23 10:00 05/12/23 10:00 05/12/23 10:00 05/12/23 10:00 05/12/23 10:00 05/12/23 07:47 FiO2 50 05/10/23 01:00 Oxygen Flow Rate (L/min) 1 Oxygen Delivery Method Room Air Weight: 81.9 kg Body Mass Index (BMI) 26.6 Intake & Output: Intake and Output for Last 24 Hours 05/10/23 05/11/23 05/12/23 23:59 23:59 23:59 Intake Total 420 / 420 60 / 60 100 / 100 Output Total 1000 / 1000 300 / 300 300 / 300 Balance -580 / -580 -240 / -240 -200 / -200 Lab / Micro Data 05/11/23 05:30 05/12/23 05:30 Labs: Laboratory Results - last 24 hr 05/12/23 05:30: Sodium 147 H, Potassium 3.2 L, Chloride 117 H, Carbon Dioxide 24.0, Anion Gap 6, BUN 82 H, Creatinine 5.75 H, Estim Creat Clear Calc 10.08, Est GFR (MDRD) Af Amer 12 L, Est GFR (MDRD) Non-Af 10 L, BUN/Creatinine Ratio 14.3, Glucose 106, Calcium 7.6 L Micro: Microbiology 05/08/23 15:15 Urine Catheter - Thompson Urine Culture - Final Culture exhibits no growth. 05/05/23 13:15 Blood Culture (Wb) - Anticubital Left Blood Culture - Final No growth in 5 days. 05/05/23 12:47 Blood Culture (Wb) - Anticubital Right Blood Culture - Final No growth in 5 days. 05/05/23 12:47 Urine, Catheterized Urine Culture - Final Enterococcus faecalis 05/05/23 17:50 Stool C. difficile DNA Amplification - Final 05/05/23 21:15 Stool Enteric Bacteriology - Final 05/05/23 17:50 Mucosa - Nasopharyngeal Coronavirus COVID-19 PCR - Final SARS-CoV-2 (COVID 19) 05/05/23 17:50 Mucosa - Nasopharyngeal Respiratory Panel (PCR) - Final 05/05/23 18:11 Urine Catheter - Catheter Legionella Antigen - Final 05/05/23 18:11 Urine Catheter - Catheter Streptococcus pneumoniae Antigen (M - Final Physical Exam Narrative Exam minimize due to COVID Assessment & Plan Assessment/Plan (1) GERTRUDE (acute kidney injury): PLAN: Baseline creatinine appears to be around 1.6 or so. Came in with a creatinine of more than 5, initially improved. Creatinine worsening again. Creatinine today is at 6.3, about the same as yesterday. Renal ultrasound without any hydronephrosis, increased echogenicity Urine analysis is not impressive, he did have blood in the urine consistent with rhabdomyolysis. Thompson catheter indwelling with somewhat concentrated looking urine. Clinically no signs of volume overload. Hypotension is resolved, did not require pressors COVID-pneumonia, currently on treatment. Acute renal failure is likely due to ATN. CPK level was not high enough to cause GERTRUDE. He is making urine. Urine output has improved. Potassium levels, acid-base status is okay. Likely recovering
[2023-05-12 13:34] LABS: Magnesium 2.2 mg/dL (1.6-2.6); Phosphorus 4.3 mg/dL (2.5-4.9)
[2023-05-13] VITALS (8 sets, daily range): BP systolic 100–139; BP diastolic 56–71; PULSE 52–64; RESP 15–22; TEMP 36.4–36.8; O2SAT 93–99; BMI 26.9
[2023-05-13 04:06] LABS: Absolute Lymphocyte Count 0.74 X10^3/uL (0.83-4.51); Absolute Neutrophil Count 7.5 X10^3/uL (2.0-7.7); Basophil# 0.02 X10^3/uL; Basophil% 0.2 % (0-1); Eosinophil# 0.31 X10^3/uL; Eosinophils% 3.4 % (0-5); Hematocrit 25.9 % (40-54); Hemoglobin 8.1 g/dL (13.0-16.5); Lymphocyte # 0.74 X10^3/ul (0.83-4.51); Lymphocyte % 8.1 % (19-41); Mean Corp Hgb Conc 31.3 g/dL (32-36); Mean Corpuscular Hgb 30.1 pg (27.0-32.0); Mean Corpuscular Volume 96.3 fL (80-94); Mean Platelet Vol. 9.7 fl (6.2-12.0); Monocyte# 0.33 X10^3/uL; Monocyte% 3.6 % (0-10); NRBC Flagged by Analyzer 0 % (0-5); Neutrophil # 7.51 X10^3/uL (2.7-7.7); Neutrophil % 82.4 % (47-70); Platelet Count 214 K/mm3 (150-450); RBC Distribution Width CV 14.2 % (11.6-14.6); Red Blood Count 2.69 M/mm3 (4.6-6.2); White Blood Count 9.1 K/mm3 (4.4-11.0)
[2023-05-13 04:21] LABS: Anion Gap 7 (5-15); BUN 81 mg/dL (7-18); BUN/Creat Ratio 14.6 RATIO (10-20); Calcium,Total 7.6 mg/dL (8.5-10.1); Chloride 119 mmol/L (98-107); Creatinine, Serum 5.54 mg/dL (0.70-1.30); EST Glomerular Filtration Rate 11 mL/min (>60); Est Glom Filt Rate - Afr Amer 13 mL/min (>60); Estimated Creatinine Clearance 10.46 ml/min; Glucose 108 mg/dL (74-106); Potassium 3.5 mmol/L (3.5-5.1); Sodium Level 149 mmol/L (136-145)
[2023-05-13] MEDS: guaiFENesin 10 ML UDC (200MG/10ML) PO ×5 (04:44→23:11)
[2023-05-13] MEDS: Levothyroxine 125 MCG Tablet PO (06:25)
[2023-05-13] MEDS: Carbidopa/Levodopa 25/100 Tablet PO ×3 (06:25→23:11)
[2023-05-13] MEDS: Menthol/Lanolin/Calamine/Znox 113 GM Tube 1 APPLIC TOPICAL ×3 (06:26→23:11)
[2023-05-13] MEDS: Budesonide Respules 0.5 MG/2 ML AMPUL.NEB. INHALATION ×2 (07:28→19:26)
--- NOTE | 2023-05-13 08:37 | PN.RENAL_ITS ---
Subjective Subjective Sitting up in bed, aide in room with patient. No overnight events. Objective Data Objective Data Vital Signs: Vital Signs Temp Pulse Resp BP Pulse Ox O2 Del Method O2 Flow Rate 98.0 F 56 L 18 128/71 H 93 Room Air 1 05/13/23 02:00 05/13/23 07:29 05/13/23 07:29 05/13/23 02:00 05/13/23 07:29 05/13/23 07:29 05/12/23 07:47 FiO2 50 05/10/23 01:00 Oxygen Flow Rate (L/min) 1 Oxygen Delivery Method Room Air Weight: 82.7 kg Body Mass Index (BMI) 26.9 Intake & Output: Intake and Output for Last 24 Hours 05/11/23 05/12/23 05/13/23 23:59 23:59 23:59 Intake Total 60 / 60 200 / 200 30 / 30 Output Total 300 / 300 600 / 1100 500 / 500 Balance -240 / -240 -400 / -900 -470 / -470 Lab / Micro Data 05/13/23 04:00 05/13/23 04:00 Labs: Laboratory Results - last 24 hr 05/12/23 05:30: Phosphorus 4.3, Magnesium 2.2 05/13/23 04:00: WBC 9.1, RBC 2.69 L, Hgb 8.1 L, Hct 25.9 L, MCV 96.3 H, MCH 30.1, MCHC 31.3 L, RDW Std Deviation 50.0 H, RDW Coeff of Delisa 14.2, Plt Count 214, MPV 9.7, Immature Gran % (Auto) 2.300 H, Neut % (Auto) 82.4 H, Lymph % (Auto) 8.1 L, [place] % (Auto) 3.6, Eos % (Auto) 3.4, Baso % (Auto) 0.2, Absolute Neuts (auto) 7.5, Absolute Lymphs (auto) 0.74 L, Nucleated RBC % 0, Sodium 149 H , Potassium 3.5, Chloride 119 H, Carbon Dioxide 23.0, Anion Gap 7, BUN 81 H, Creatinine 5.54 H, Estim Creat Clear Calc 10.46, Est GFR (MDRD) Af Amer 13 L, Est GFR (MDRD) Non-Af 11 L, BUN/Creatinine Ratio 14.6, Glucose 108 H, Calcium 7.6 L Micro: Microbiology 05/08/23 15:15 Urine Catheter - Thompson Urine Culture - Final Culture exhibits no growth. 05/05/23 13:15 Blood Culture (Wb) - Anticubital Left Blood Culture - Final No growth in 5 days. 05/05/23 12:47 Blood Culture (Wb) - Anticubital Right Blood Culture - Final No growth in 5 days. 05/05/23 12:47 Urine, Catheterized Urine Culture - Final Enterococcus faecalis 05/05/23 17:50 Stool C. difficile DNA Amplification - Final 05/05/23 21:15 Stool Enteric Bacteriology - Final 05/05/23 17:50 Mucosa - Nasopharyngeal Coronavirus COVID-19 PCR - Final SARS-CoV-2 (COVID 19) 05/05/23 17:50 Mucosa - Nasopharyngeal Respiratory Panel (PCR) - Final 05/05/23 18:11 Urine Catheter - Catheter Legionella Antigen - Final 05/05/23 18:11 Urine Catheter - Catheter Streptococcus pneumoniae Antigen (M - Final Physical Exam Narrative Exam minimized due to COVID Assessment & Plan Assessment/Plan (1) GERTRUDE (acute kidney injury): PLAN: Baseline creatinine appears to be around 1.6 or so. Came in with a creatinine of 5.39, over a few days improved, but then creatinine peaked 6.41 on 05/08. Again serum creatinine slowly improving daily. Today his creatinine 5.54mg/dL. Renal ultrasound without any hydronephrosis, increased echogenicity Urine analysis is not impressive, he did have blood in the urine consistent with rhabdomyolysis. Clinically no signs of volume overload. Hypotension is resolved, did not require pressors COVID-pneumonia, currently on treatment. Acute renal failure is likely due to ATN with slow recovery. CPK level was not high enough to cause GERTRUDE. He is making urine. Potassium levels, acid-base status is okay. Likely recovering. However appetite is poor per staff. His sodium levels elevated past few days between 147-149 likely due to lack of free water intake. Encourage patient to increase solute and fluid intake as best as he can. Patient is on regular diet, pur?e, with supervision with food and drink.
--- NOTE | 2023-05-13 08:49 | CASEMGMT ---
Social Work SW called TCU, there are still no beds available for this pt. CC to start precert today. SW completed PAS/RR in the [facility] system. PAS/RR w/results will be placed on the chart. ANA Brody
--- NOTE | 2023-05-13 08:53 | CASEMGMT ---
Discharge Planning Msg sent to [facility] via [facility] to start precert. Elle Stevens, Discharge Planning Asst.
[2023-05-13] MEDS: Hydrocortisone 10 MG Tablet PO ×2 (09:17→23:12)
[2023-05-13] MEDS: Aspirin E.C. 81 MG Tablet PO (09:17)
[2023-05-13] MEDS: Escitalopram Oxalate 10 MG Tablet PO (09:17)
[2023-05-13] MEDS: Heparin Injection (Vial) 5,000 UNIT/ML VIAL 5000 UNIT SC ×2 (09:17→23:12)
[2023-05-13] MEDS: Sodium Ferric Gluconat/Sucrose 250 MG in 0.9% Normal Saline (250mL Bag) 250 ML 135 MG IV (09:50)
--- NOTE | 2023-05-13 10:11 | CASEMGMT ---
Discharge Planning Therapy [facility] Elle Stevens, Discharge Planning Asst.
--- NOTE | 2023-05-13 11:48 | PN.HOSP_ITS ---
Subjective Subjective Doing well, no issues overnight. Appetite improving Objective Data Objective Data Vital Signs: Vital Signs Temp Pulse Resp BP Pulse Ox O2 Del Method O2 Flow Rate 97.5 F L 56 L 15 115/60 96 Room Air 1 05/13/23 08:00 05/13/23 09:00 05/13/23 08:00 05/13/23 08:00 05/13/23 09:00 05/13/23 09:00 05/12/23 07:47 FiO2 50 05/10/23 01:00 Oxygen Flow Rate (L/min) 1 Oxygen Delivery Method Room Air Weight: 182 lb 5.156 oz Body Mass Index (BMI) 26.9 Intake & Output: Intake and Output for Last 24 Hours 05/12/23 05/13/23 05/14/23 03:59 03:59 03:59 Intake Total 60 / 60 200 / 200 30 / 30 Output Total 300 / 300 1100 / 1100 Balance -240 / -240 -900 / -900 Lab / Micro Data 05/13/23 04:00 05/13/23 04:00 Labs: Laboratory Results - last 24 hr 05/12/23 05:30: Phosphorus 4.3, Magnesium 2.2 05/13/23 04:00: WBC 9.1, RBC 2.69 L, Hgb 8.1 L, Hct 25.9 L, MCV 96.3 H, MCH 30.1, MCHC 31.3 L, RDW Std Deviation 50.0 H, RDW Coeff of Delisa 14.2, Plt Count 214, MPV 9.7, Immature Gran % (Auto) 2.300 H, Neut % (Auto) 82.4 H, Lymph % (Auto) 8.1 L, [place] % (Auto) 3.6, Eos % (Auto) 3.4, Baso % (Auto) 0.2, Absolute Neuts (auto) 7.5, Absolute Lymphs (auto) 0.74 L, Nucleated RBC % 0, Sodium 149 H , Potassium 3.5, Chloride 119 H, Carbon Dioxide 23.0, Anion Gap 7, BUN 81 H, Creatinine 5.54 H, Estim Creat Clear Calc 10.46, Est GFR (MDRD) Af Amer 13 L, Est GFR (MDRD) Non-Af 11 L, BUN/Creatinine Ratio 14.6, Glucose 108 H, Calcium 7.6 L Micro: Microbiology 05/08/23 15:15 Urine Catheter - Thompson Urine Culture - Final Culture exhibits no growth. 05/05/23 13:15 Blood Culture (Wb) - Anticubital Left Blood Culture - Final No growth in 5 days. 05/05/23 12:47 Blood Culture (Wb) - Anticubital Right Blood Culture - Final No growth in 5 days. 05/05/23 12:47 Urine, Catheterized Urine Culture - Final Enterococcus faecalis 05/05/23 17:50 Stool C. difficile DNA Amplification - Final 05/05/23 21:15 Stool Enteric Bacteriology - Final 05/05/23 17:50 Mucosa - Nasopharyngeal Coronavirus COVID-19 PCR - Final SARS-CoV-2 (COVID 19) 05/05/23 17:50 Mucosa - Nasopharyngeal Respiratory Panel (PCR) - Final 05/05/23 18:11 Urine Catheter - Catheter Legionella Antigen - Final 05/05/23 18:11 Urine Catheter - Catheter Streptococcus pneumoniae Antigen (M - Final Physical Exam Narrative General: Alert, oriented x1, Cooperative, No apparent distress HEENT: Atraumatic, PERRLA, EOMI, Normocephalic Oral: Moist Mucosa Neck: Supple, No JVD Lungs: Diminished, Normal air movement, No rhonchi, No wheeze, No rales Cardiovascular: Regular rate, Regular Rhythm, Normal S1, Normal S2, No murmurs Abdomen: Soft, Non Tender, Non-Distended, No Hepato-splenomegaly Extremities: No edema, Capillary Refill Less than 3 Seconds Skin: No rashes, No breakdown Musculoskeletal: No Tenderness to Palpation of Joints or Extremities Neurological: Motor Exam 5/5 strength throughout, Sensory exam intact to light touch and pain Psych/Mental Status: Flat Assessment & Plan Assessment/Plan (1) Shock: PLAN: Plan #1. Acute Encephalopathy, Multifactorial, most likely COVID-19 infectious/metabolic encephalopathy/dysphagia: Patient is being admitted in ICU. Continue IV fluid hydration at slow rate. Keep pulse ox more than 90%. Continue IV steroid. MRI brain is done, report not available. 2D echo is ordered. ECHO 12/25/2019 with normal LV systolic function, EF 60%, mildly enlarged LA, mild MVI, trivial TVI, trivial MARIANO, trivial PVI, RVSP 25 mmHg TSH and free T3 low but free T4 normal possible euthyroid sick syndrome. 05/10: Acute encephalopathy has resolved. 05/11/2023: Likely has some baseline dementia exacerbated by his COVID infection 05/13/2023: We will consult GI because of his modified barium swallow 2. Hypotension, most likely due to intravascular volume depletion/hypovolemia, possibility of acute adrenal insufficiency: Patient on IV hydrocortisone 50 mg try to wean from tomorrow. Patient is off Levophed today. Patient has a right IJ CVC catheter. Patient on IV empiric antibiotic for suspected pneumonia. Patient was on Levophed for very short period of time currently off Levophed. 05/08: BP in 140s. Gradually weaning hydrocortisone,50 mg daily. Infectious work-up including enteric bacteriology panel, respiratory panel, are negative. Blood cultures negative for 48 hours. We will discontinue the antibiotic. I do not think septic shock reason for hypotension. Empiric antibiotics discontinued. 05/09: Patient was dizzy in the morning. Patient blood pressure was in 70s in the morning, 1 L Ringer lactate bolus given but patient blood pressure still in the 60s. Patient on hydrocortisone increased to 50 mg every 12 hourly. Net positive fluid balance 7.5 L. Dizziness resolved after IV fluid bolus but patient blood pressure is still low therefore transferred to ICU. 05/10: Patient did not require vasopressor support. Maintaining blood pressure 1 05/11/2023: Resolved 3. COVID-19 pneumonia with hypoxemia: Patient has COVID-19 pneumonia. Patient on IV steroid. Does not meet criteria for IV remdesivir. Serial troponin assays shows decreasing trend. Most likely acute myocardial injury from COVID- 19 pneumonia due to increased demand. Patient is COVID PCR-positive. Patient has mild cough. Denies shortness of breath. Mild cough/choking sensation while drinking water with tingling sensation. 05/07: Continue antibiotic 05/11/2023: Off antibiotics and off of stress dose steroids we will continue to monitor likely need SNF placement 4. Acute kidney injury and acute rhabdomyolysis likely due to ATN: Admission total creatinine kinase 3226 with lactic acidosis, acute kidney injury and transaminitis with elevated AST consistent with acute rhabdomyolysis.Admission BUN/Cr 44/5.39, prior baseline creatinine noted to be primarily 1.4-1.7, most recent 01/31/2023 creatinine 1.72. Monitor kidney function. Avoid nephrotoxic medications 05/07: Creatinine is still high 5.1. CPK level 812. Urine output about 600 mL yesterday and 360 mill since midnight. Urine is turbid looking. 05/08: Monitor kidney function.CK level better. First UA shows WBC, bacteria, mucus 0. [place] UA. Repeat UA, urine electrolytes, osmolality and urine culture ordered. Started on bicarb drip. Nephrology consult requested. 05/09 creatinine stable as compared to yesterday, 6.3. Urine is still cloudy. Urine shows RBC 10-25 cells, LE 25, WBC 0-5 cells. Nitrite negative. 3+ amorphous sediments. Urine electrolytes show sodium 13, creatinine 84, pot assium 46. Chloride 18. Discussed with the [employer] operations consultant. Kidney function is stabilized probably will not need dialysis. Renal ultrasound without hydronephrosis or increased echogenicity. 05/10: Urine output 500 mL. Creatinine 6.25, BUN 77. Discussed with the [employer] operations consultant. 05/12/2023: Renal function is slowly and proving we will continue to monitor appreciate nephrology 5. Acute liver injury possible due to ischemic hepatitis due to hypotension or infectious viral hepatitis: Admission CMP with T. bili 0.70, AST/LT 185/49, alk phos 76, last AST 01/31/2023 noted to be normal at 20. Monitor liver chemistry 05/09: Liver chemistry better. ALT 11 AST 83. 6. Lactic acidosis: Admission lactic acid 4.5, suspect multifactorial with rhabdomyolysis as well as acute kidney injury with respiratory failure, continue slow IV 7. CAD: Status post PCI x 6, continue aspirin, statin, per current list not on beta-nevaeh therapy however given hypotension this will be deferred. 8. 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 ED initiated TSH 0.27 however free T41.07, subclinical. #9. Chronic iron deficiency anemia: Admission hemoglobin 13.7, MCV 94, baseline hemoglobin recently 13-14, stable, continue iron supplementation and CBC trending. 05/10: Hemoglobin 9.2. #10. Parkinson's disease: We will continue patient home Sinemet regimen, complicates presentation, maintain on fall and aspiration precautions, PT/OT/case management consulted for discharge planning. #11. Anxiety and depression: continue patient home escitalopram regimen. #12. Hyperlipidemia: continue patient home statin therapy; however, if LFT rises 3x ULN will hold. #13. History ICH: Unclear history of event, current CT of the head with no acute intracranial findings as noted. #14. BPH: Per current list not on regimen, clarifying we will add if appropriate. #15. BENITA: Clarifying if patient uses CPAP nightly. DVT prophylaxis: heparin. Charges/Coding Visit Charges Inpatient E&M: 18249 Subs Hosp L2
--- NOTE | 2023-05-13 11:50 | CASEMGMT ---
Addendum entered by Sydnee Bernardo 05/13/23 11:58: Social Work SW also spoke w/pt's daughter and let her know pt is approved for [facility] by insurance and may go on the weekend. SW also let her know TCU still cannot take pt. Daughter states understanding. ANA Brody Original Note: [facility] got precert back for pt. SW spoke w/physician, pt not ready today, possibly on the weekend. SW called pt's son Colton, let him know [facility] can take pt and they have precert, and pt can likely go on the weekend. SW also did let him know checked again w/TCU and they still cannot take pt. Son states understanding. SW placed green sheet w/transport form and PAS/RR w/results on chart. Pt for [facility] when ready, skilled. ANA Brody
--- NOTE | 2023-05-13 12:10 | CASEMGMT ---
Discharge Planning Precert has been obtained by [facility]. updated. [facility] updated via careport of potential weekend discharge. Discharge Planning Asst.
--- NOTE | 2023-05-13 14:12 | NURSING ---
report called to [facility] for transfer to room 111 , notified daughter of room change to 111
--- NOTE | 2023-05-13 14:35 | NURSING ---
Per infection control Michaela Foster, no isolation needed.
--- NOTE | 2023-05-13 18:30 | EX.PCM.CON.G ---
HPI Consult Data Date of Consult: 05/13/23 HPI Narrative Reason for Consultation: dysphagia HPI Narrative: KEN ALFRED, is a 82 M who presented to the hospital initially on the after he was found. 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 He was discovered to have COVID-19 associated pneumonia ,acute kidney injury with persistent hypotension. He was able to be weaned off of pressor therapy and was treated for COVID-19 pneumonia. His kidney function also recovered back to baseline. I was consulted to see him secondary to an abnormal swallowing study. As per the patient he has been having problems with solid foods for the last 2 years. He does live alone. His swallowing study had showed oropharyngeal dysphagia and esophageal dysphagia. I was consulted for management of his esophageal dysphagia. He says that he does not have these but that history of Parkinson's some post neurologic defects but he does not have any problems with constipation, no previous diagnosed gastroparesis or esophageal dysphagia secondary to Parkinson's disease. 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 Home Medications atorvastatin 20 mg tablet 20 mg PO DAILY cholesterol 12/25/19 [History Last Taken 12/21/20] aspirin 81 mg tablet,delayed release 81 mg PO DAILY Heart health 01/16/20 [History Last Taken 12/22/20] carbidopa 25 mg-levodopa 100 mg tablet 1.5 tab PO TID Parkinson disease 07/24/20 [History Last Taken 12/22/20] cholecalciferol (vitamin D3) 50 mcg (2,000 unit) capsule 2,000 unit PO DAILY Supplement 09/08/20 [History Last Taken 12/22/20] acetaminophen 500 mg tablet 1,000 mg (2 x 500 mg) PO Q6H PRN PRN Pain Score 1-5 09/25/20 [Rx Last Taken Unknown] escitalopram oxalate 10 mg tablet 10 mg PO DAILY 09/25/20 [Rx Last Taken 12/22/20] polysaccharide iron complex 150 mg iron capsule 150 mg PO DAILYCM #30 caps 09/25/20 [Rx Last Taken 12/21/20] omega 8-lvg-uoh-fish oil 1,200 mg (144 mg-216 mg) capsule (Fish Oil) 1,200 cap PO DAILY SUPPLEMENT 12/22/20 [History Last Taken 12/22/20] levothyroxine 125 mcg tablet 125 mcg PO 06/08/22 [History Last Taken Unknown] tolterodine 4 mg capsule,extended release 24 hr 4 mg PO 06/08/22 [History Last Taken Unknown] hydrocortisone 10 mg tablet See Rx Instructions PO .COMPLEX ADRENAL #270 tabs 11/18/22 [Rx Last Taken Unknown] Allergy/AdvReac Type Severity Reaction Status Date / Time No Known Allergies Allergy Verified 01/31/23 14:28 Family History (Updated 05/05/23 @ 20:[address] Dixie Carlos MD) Mother Skin cancer Cancer Skin and other unknown Sister Cancer Unknown type Father Alzheimer disease Surgical History History of back surgery History of cholecystectomy (~12/2019) Hx of colonoscopy Hx of elbow surgery Hx of heart artery stent Hx of left breast biopsy Social History Smoking Status: Never smoker second hand exposure: No alcohol intake: current alcohol intake frequency: holidays/special occasions only substance use type: does not use caffeine: Yes what type of physical activity do you participate in: none frequency: does not exercise ROS ROS Narrative Physical Examination: General: Currently improved, awakens to stimuli more alert, oriented to self and son in room but still not quite at baseline, remains cooperative, hard of hearing, laying in the ED bed, fatigued and ill-appearing. Skin: Normal color, normal turgor, no icterus, no cyanosis except for very staged ecchymoses to the extremities especially and bruising to the hip with recent fall likely the etiology. HEENT: AT/NC, EOMI, PERRLA, dry MM, no carotid bruits or JVD noted. Lungs: Diminished, greater bases, mild increased respiratory rate but no distress, no rales, ronchi or wheezing. Heart: Regular rate and rhythm; no gallop, rub audible. Abdomen: Soft, NTTP, ND, hyperactive BS, no HSM. Extremities: No cyanosis, no clubbing, mild peripheral ankle edema. Neurological: Patient awake, alert, oriented as noted, cognitive function improving but still not baseline intact, pupils equally reactive to light and accommodation, cranial nerves grossly normal, moving all 4 extremities, no specific focal deficits, strength severely globally decreased secondary to acute presentation complicated by age and underlying comorbidities. Psychiatric: Affect appears flat, fatigued, ill-appearing, no acute evidence of depressive or anxiety feelings. Review of Systems ROS Unobtainable: due to encephalopathy Constitutional Constitutional: Denies fatigue, fever(s), poor appetite, weight gain or weight loss ENT HEENT: Denies mouth lesions Cardiovascular Cardiovascular: Denies abdominal bloating, abdominal edema or abdominal pain Respiratory/Chest Respiratory/Chest: Denies change in mental status, change in phlegm color, chest congestion or chest tightness Gastrointestinal Gastrointestinal: Denies belching, bloating, change in bowel habits, change in stool character, chewing difficulty, coffee ground emesis, constipation, cramping, diarrhea, dyspepsia, dysphagia, early satiety, excessive flatus, fecal incontinence, heartburn, hematemesis, hematochezia, hemorrhoids, loose stools, melena, nausea, odynophagia, rectal bleeding, tenesmus, vomiting or weight changes Genitourinary Genitourinary: Denies abdominal discomfort, burning urination or itching Musculoskeletal Musculoskeletal: Reports as per HPI; Denies muscle weakness or myalgias Integumentary Integumentary: Denies jaundice Neurologic Neurologic: Denies lack of coordination or weakness Psychiatric Psychiatric: Denies confusion, depression, memory loss, mood swings, paranoia or suicidal ideation Endocrine Endocrinology: Denies systems reviewed and no addt'l complaints, except as documented Hematologic/Lymphatic Hematologic/Lymphatic: Denies anemia, easy bleeding, easy bruising or lymphadenopathy Allergic/Immunologic Allergic/Immunologic: Denies systems reviewed and no addt'l complaints, except as documented Physical Exam Narrative General: Alert, oriented x1, Cooperative, No apparent distress HEENT: Atraumatic, PERRLA, EOMI, Normocephalic Oral: Moist Mucosa Neck: Supple, No JVD Lungs: Diminished, Normal air movement, No rhonchi, No wheeze, No rales Cardiovascular: Regular rate, Regular Rhythm, Normal S1, Normal S2, No murmurs Abdomen: Soft, Non Tender, Non-Distended, No Hepato-splenomegaly Extremities: No edema, Capillary Refill Less than 3 Seconds Skin: No rashes, No breakdown Musculoskeletal: No Tenderness to Palpation of Joints or Extremities Neurological: Motor Exam 5/5 strength throughout, Sensory exam intact to light touch and pain Psych/Mental Status: Flat Lab / Micro Data 05/13/23 04:00 05/13/23 04:00 Labs: Laboratory Results - last 24 hr 05/13/23 04:00: WBC 9.1, RBC 2.69 L, Hgb 8.1 L, Hct 25.9 L, MCV 96.3 H, MCH 30.1, MCHC 31.3 L, RDW Std Deviation 50.0 H, RDW Coeff of Delisa 14.2, Plt Count 214, MPV 9.7, Immature Gran % (Auto) 2.300 H, Neut % (Auto) 82.4 H, Lymph % (Auto) 8.1 L, [place] % (Auto) 3.6, Eos % (Auto) 3.4, Baso % (Auto) 0.2, Absolute Neuts (auto) 7.5, Absolute Lymphs (auto) 0.74 L, Nucleated RBC % 0, Sodium 149 H, Potassium 3.5, Chloride 119 H, Carbon Dioxide 23.0, Anion Gap 7, BUN 81 H, Creatinine 5.54 H, Estim Creat Clear Calc 10.46, Est GFR (MDRD) Af Amer 13 L, Est GFR (MDRD) Non-Af 11 L, BUN/Creatinine Ratio 14.6, Glucose 108 H, Calcium 7.6 L Assessment & Plan Assessment/Plan (1) Esophageal dysphagia: PLAN: The differential diagnosis for esophageal dysphagia does include esophageal dysmotility disorder secondary to Parkinson's disease, esophageal ring, esophageal stricture, torturous esophagitis, eosinophilic esophagitis, erosive esophagitis associated with gastroparesis. He should undergo an upper endoscopy to evaluate his upper GI tract. He was explained alternatives, risk, benefits include not withstanding bleeding, infection, sepsis, perforation, need for emergent surgery . He will have an ASA of 3. Charges/Coding Visit Charges Inpatient E&M: 55984 Init Hosp L3
--- NOTE | 2023-05-13 18:46 | NURSING ---
Patient's daughter, Ruby, notified of patient having EGD tomorrow morning at 0730. Ruby informed that she can come to the hospital at 0700 since patient is having procedure. Ruby stated she will be here at 0700.
[2023-05-14] VITALS (12 sets, daily range): BP systolic 88–122; BP diastolic 49–66; PULSE 53–56; RESP 16–20; TEMP 36.6–36.9; O2SAT 93–100; BMI 26.6
[2023-05-14 06:49] LABS: Anion Gap 5 (5-15); BUN 76 mg/dL (7-18); BUN/Creat Ratio 14.3 RATIO (10-20); Calcium,Total 7.9 mg/dL (8.5-10.1); Chloride 119 mmol/L (98-107); EST Glomerular Filtration Rate 11 mL/min (>60); Est Glom Filt Rate - Afr Amer 13 mL/min (>60); Estimated Creatinine Clearance 10.93 ml/min; Glucose 135 mg/dL (74-106); Potassium 3.5 mmol/L (3.5-5.1); Sodium Level 148 mmol/L (136-145)
[2023-05-14] MEDS: Budesonide Respules 0.5 MG/2 ML AMPUL.NEB. INHALATION ×2 (06:55→19:32)
--- NOTE | 2023-05-14 07:35 | IMM_PTH ---
PATIENT: KEN ALFRED LOC: [facility] U#:[id number] AGE/SX: 82/M ROOM: [facility] RE05/05/[address]: Dr. Omer Drummond DO : 1940 BED: 1 DIS: 05/19/2023 SPEC #: [id number] RECD: 05/16/23 14:50 STATUS: KHURRAM REQ #: [id number] MAXIMINO: 05/14/23 07:[address]: Ra Monsehsaan DEPT: IMMUNOHISTOCHEMISTRY RECD BY: Francheska Pickard ENTERED: 05/16/23 14:51 SP TYPE: IMMUNO OTHR DR: MD Dr. García Browne MD Dr. Derek Brown, DO Dr. Jayaprakas Dasari, MD Dr. Nicholas F Kotsonis, MD Dr. Prakash Chand, MD Tissues: B - Stomach, NOS Procedures: H Pylori (initial) PHYSICIAN & [address] [address] SPECIMEN INFORMATION: Tissue Source: B - Gastric ulcer Clinical Info: Esophageal dysphagia Specimen Number: [id number] CPT code: 74713 METHODOLOGY: Deparaffinized sections of prefer/formalin-fixed tissue or PAP/DQ stained slides are incubated with monoclonal/polyclonal antibodies/oligonucleotide probes. Localization is made via biotin free immunoperoxidase method. Appropriate controls are performed and reacted as expected. Results on target cell population are indicated in the following table: RESULTS: ANTIBODY / CLONE RESULT Block B H Pylori (polyclonal) negative These tests were developed and their performance characteristics determined by [facility]. They may not have been cleared or approved by the [place]. Food and Drug Administration. The FDA has determined that such clearance or approval is not necessary. The above immunohistochemical/dualISH markers are ordered and reviewed by the Pathologist. INTERPRETATION: B. Gastric ulcer, biopsy: Negative for Helicobacter pylori organisms. AM:sammi 05/17/2023
--- NOTE | 2023-05-14 08:18 | OP.EGD_ITS ---
Patient Name: Jaiden Marshall Procedure Date: 05/14/2023 7:47 AM Date of : 1940 Age: 82 Procedure: Upper GI endoscopy Indications: Odynophagia Providers: Juan Manuel Shea DO Medicines: Monitored Anesthesia Care Patient Profile: This is an 82 year old male. Refer to note in patient chart for documentation of history and physical. Patient has symptoms of dysphagia with both liquids and solids. Complications: No immediate complications. Procedure: Pre-Anesthesia Assessment: - Prior to the procedure, a History and Physical was performed, and patient medications and allergies were reviewed. The patient is competent. The risks and benefits of the procedure and the sedation options and risks were discussed with the patient. All questions were answered and informed consent was obtained. Patient identification and proposed procedure were verified by the physician. Mental Status Examination: alert and oriented. Airway Examination: normal oropharyngeal airway and neck mobility. Respiratory Examination: clear to auscultation. CV Examination: normal. Prophylactic Antibiotics: The patient does not require prophylactic antibiotics. Prior Anticoagulants: The patient has taken no previous anticoagulant or antiplatelet agents. ASA Grade Assessment: III - A patient with severe systemic disease. After reviewing the risks and benefits, the patient was deemed in satisfactory condition to undergo the procedure. The anesthesia plan was to use monitored anesthesia care (MAC). Immediately prior to administration of medications, the patient was re-assessed for adequacy to receive sedatives. The heart rate, respiratory rate, oxygen saturations, blood pressure, adequacy of pulmonary ventilation, and response to care were monitored throughout the procedure. The physical status of the patient was re-assessed after the procedure. After obtaining informed consent, the endoscope was passed under direct vision. Throughout the procedure, the patient's blood pressure, pulse, and oxygen saturations were monitored continuously. The gastroscope was introduced through the mouth, and advanced to the second part of duodenum. The upper GI endoscopy was accomplished without difficulty. The patient tolerated the procedure well. Scope In: 7:56:01 AM Scope Out: 8:03:37 AM Total Procedure Duration Time 0 hours 7 minutes 36 seconds Findings: Diffuse, white plaques were found in the entire esophagus. Biopsies were taken with a cold forceps for histology. Verification of patient identification for the specimen was done. Estimated blood loss was minimal. One benign-appearing, intrinsic stenosis was found 19 cm from the incisors. This stenosis was moderate (circumferential scarring or stenosis; an endoscope may pass) and. The stenosis was traversed after dilation. A guidewire was placed and the scope was withdrawn. Dilation was performed with a Savary dilator with no resistance at 51 Fr. The dilation site was examined and showed moderate improvement in luminal narrowing. Estimated blood loss was minimal. A medium-sized hiatal hernia was present. A medium amount of food (residue) was found in the gastric body. One oozing cratered gastric ulcer with pigmented material was found in the stomach. The lesion was 6 mm in largest dimension. Coagulation for hemostasis using heater probe was successful. Biopsies were taken with a cold forceps for histology. Verification of patient identification for the specimen was done. Estimated blood loss was minimal. Biopsies were taken with a cold forceps for Helicobacter pylori testing. Verification of patient identification for the specimen was done. Estimated blood loss was minimal. Patchy mild inflammation characterized by congestion (edema), erosions and erythema was found in the duodenal bulb. Impression: - Esophageal plaques were found, consistent with candidiasis. Biopsied. - Benign-appearing esophageal stenosis. Dilated. - Medium-sized hiatal hernia. - A medium amount of food (residue) in the stomach. - Oozing gastric ulcer with pigmented material. Treated with a heater probe. Biopsied. - Duodenitis. Recommendation: - Return patient to [facility] for ongoing care. - Resume previous diet. - Diflucan (fluconazole) 100 mg PO daily for 10 days. - Use metoclopramide 5 mg PO QID; 30 min AC and HS for 2 weeks. - Nystatin suspension 100,000 units PO QID for 7 days. - Use Protonix (pantoprazole) 40 mg PO BID. - Continue present medications. Procedure Code(s): --- Professional --- 34440, 59, Esophagogastroduodenoscopy, flexible, transoral; with control of bleeding, any method 11277, Esophagogastroduodenoscopy, flexible, transoral; with insertion of guide wire followed by passage of dilator(s) through esophagus over guide wire 60544, 59,51, Esophagogastroduodenoscopy, flexible, transoral; with biopsy, single or multiple CPT copyright 2021 [employer]. All rights reserved. The codes documented in this report are preliminary and upon assistant manager retail review may be revised to meet current compliance requirements. Juan Manuel Shea DO 05/14/2023 8:17:21 AM This report has been signed electronically. Number of Addenda: 0 Note Initiated On: 05/14/2023 7:47 AM
--- NOTE | 2023-05-14 08:18 | OP.CCLET_ITS ---
05/14/2023 Gianluca Trevino [address] [place] [address] Re : Upper GI endoscopy procedure for Jaiden Marshall Dear Dr. Trevino This procedure was performed on Sunday, May 14, 2023. My impressions and recommendations are as follows: Impressions : - Esophageal plaques were found, consistent with candidiasis. Biopsied. - Benign-appearing esophageal stenosis. Dilated. - Medium-sized hiatal hernia. - A medium amount of food (residue) in the stomach. - Oozing gastric ulcer with pigmented material. Treated with a heater probe. Biopsied. - Duodenitis. Recommendations : - Return patient to [facility] for ongoing care. - Resume previous diet. - Diflucan (fluconazole) 100 mg PO daily for 10 days. - Use metoclopramide 5 mg PO QID; 30 min AC and HS for 2 weeks. - Nystatin suspension 100,000 units PO QID for 7 days. - Use Protonix (pantoprazole) 40 mg PO BID. - Continue present medications. My findings are described in the full procedure note, which is enclosed. If I can be of further assistance, please feel free to contact me at . Sincerely, Juan Manuel Shea, 05/14/2023 8:17:21 AM This report has been signed electronically.
--- NOTE | 2023-05-14 09:01 | PN.HOSP_ITS ---
Subjective Subjective Doing well, no issues overnight. Going down for an EGD today Objective Data Objective Data Vital Signs: Vital Signs Temp Pulse Resp BP Pulse Ox O2 Del Method O2 Flow Rate 98.5 F 54 L 18 117/53 L 100 Nasal Cannula 3 05/14/23 08:40 05/14/23 08:40 05/14/23 08:40 05/14/23 08:40 05/14/23 08:40 05/14/23 08:40 05/14/23 08:40 FiO2 50 05/10/23 01:00 Oxygen Flow Rate (L/min) 3 Oxygen Delivery Method Nasal Cannula Weight: 180 lb 12.465 oz Body Mass Index (BMI) 26.6 Intake & Output: Intake and Output for Last 24 Hours 05/13/23 05/14/23 05/15/23 03:59 03:59 03:59 Intake Total 200 / 200 790 / 790 Output Total 1100 / 1100 1000 / 1000 150 / 150 Balance -900 / -900 -210 / -210 -150 / -150 Lab / Micro Data 05/13/23 04:00 05/14/23 05:38 Labs: Laboratory Results - last 24 hr 05/14/23 05:38: Sodium 148 H, Potassium 3.5, Chloride 119 H, Carbon Dioxide 24.0, Anion Gap 5, BUN 76 H, Creatinine 5.30 H, Estim Creat Clear Calc 10.93, Est GFR (MDRD) Af Amer 13 L, Est GFR (MDRD) Non-Af 11 L, BUN/Creatinine Ratio 14.3, Glucose 135 H, Calcium 7.9 L Micro: Microbiology 05/08/23 15:15 Urine Catheter - Thompson Urine Culture - Final Culture exhibits no growth. 05/05/23 13:15 Blood Culture (Wb) - Anticubital Left Blood Culture - Final No growth in 5 days. 05/05/23 12:47 Blood Culture (Wb) - Anticubital Right Blood Culture - Final No growth in 5 days. 05/05/23 12:47 Urine, Catheterized Urine Culture - Final Enterococcus faecalis 05/05/23 17:50 Stool C. difficile DNA Amplification - Final 05/05/23 21:15 Stool Enteric Bacteriology - Final 05/05/23 17:50 Mucosa - Nasopharyngeal Coronavirus COVID-19 PCR - Final SARS-CoV-2 (COVID 19) 05/05/23 17:50 Mucosa - Nasopharyngeal Respiratory Panel (PCR) - Final 05/05/23 18:11 Urine Catheter - Catheter Legionella Antigen - Final 05/05/23 18:11 Urine Catheter - Catheter Streptococcus pneumoniae Antigen (M - Final Physical Exam Narrative General: Alert, oriented x1, Cooperative, No apparent distress HEENT: Atraumatic, PERRLA, EOMI, Normocephalic Oral: Moist Mucosa Neck: Supple, No JVD Lungs: Diminished, Normal air movement, No rhonchi, No wheeze, No rales Cardiovascular: Regular rate, Regular Rhythm, Normal S1, Normal S2, No murmurs Abdomen: Soft, Non Tender, Non-Distended, No Hepato-splenomegaly Extremities: No edema, Capillary Refill Less than 3 Seconds Skin: No rashes, No breakdown Musculoskeletal: No Tenderness to Palpation of Joints or Extremities Neurological: Motor Exam 5/5 strength throughout, Sensory exam intact to light touch and pain Psych/Mental Status: Flat Assessment & Plan Assessment/Plan (1) Shock: PLAN: Plan #1. Acute Encephalopathy, Multifactorial, most likely COVID-19 infectious/metabolic encephalopathy/dysphagia: Patient is being admitted in ICU. Continue IV fluid hydration at slow rate. Keep pulse ox more than 90%. Continue IV steroid. MRI brain is done, report not available. 2D echo is ordered. ECHO 12/25/2019 with normal LV systolic function, EF 60%, mildly enlarged LA, mild MVI, trivial TVI, trivial MARIANO, trivial PVI, RVSP 25 mmHg TSH and free T3 low but free T4 normal possible euthyroid sick syndrome. 05/10: Acute encephalopathy has resolved. 05/11/2023: Likely has some baseline dementia exacerbated by his COVID infection 05/13/2023: We will consult GI because of his modified barium swallow 05/14/2023: Plan for EGD today per GI 2. Hypotension, most likely due to intravascular volume depletion/hypovolemia, possibility of acute adrenal insufficiency: Patient on IV hydrocortisone 50 mg try to wean from tomorrow. Patient is off Levophed today. Patient has a right IJ CVC catheter. Patient on IV empiric antibiotic for suspected pneumonia. Patient was on Levophed for very short period of time currently off Levophed. 05/08: BP in 140s. Gradually weaning hydrocortisone,50 mg daily. Infectious work-up including enteric bacteriology panel, respiratory panel, are negative. Blood cultures negative for 48 hours. We will discontinue the antibiotic. I do not think septic shock reason for hypotension. Empiric antibiotics discontinued. 05/09: Patient was dizzy in the morning. Patient blood pressure was in 70s in the morning, 1 L Ringer lactate bolus given but patient blood pressure still in the 60s. Patient on hydrocortisone increased to 50 mg every 12 hourly. Net positive fluid balance 7.5 L. Dizziness resolved after IV fluid bolus but patient blood pressure is still low therefore transferred to ICU. 05/10: Patient did not require vasopressor support. Maintaining blood pressure 119/69 05/11/2023: Resolved 3. COVID-19 pneumonia with hypoxemia: Patient has COVID-19 pneumonia. Patient on IV steroid. Does not meet criteria for IV remdesivir. Serial troponin assays shows decreasing trend. Most likely acute myocardial injury from COVID- 19 pneumonia due to increased demand. Patient is COVID PCR-positive. Patient has mild cough. Denies shortness of breath. Mild cough/choking sensation while drinking water with tingling sensation. 05/07: Continue antibiotic 05/11/2023: Off antibiotics and off of stress dose steroids we will continue to monitor likely need SNF placement 4. Acute kidney injury and acute rhabdomyolysis likely due to ATN: Admission total creatinine kinase 3226 with lactic acidosis, acute kidney injury and transaminitis with elevated AST consistent with acute rhabdomyolysis.Admission BUN/Cr 44/5.39, prior baseline creatinine noted to be primarily 1.4-1.7, most recent 01/31/2023 creatinine 1.72. Monitor kidney function. Avoid nephrotoxic medications 05/07: Creatinine is still high 5.1. CPK level 812. Urine output about 600 mL yesterday and 360 mill since midnight. Urine is turbid looking. 05/08: Monitor kidney function.CK level better. First UA shows WBC, bacteria, mucus 0. [place] UA. Repeat UA, urine electrolytes, osmolality and urine culture ordered. Started on bicarb drip. Nephrology consult requested. 05/09 creatinine stable as compared to yesterday, 6.3. Urine is still cloudy. Urine shows RBC 10-25 cells, LE 25, WBC 0-5 cells. Nitrite negative. 3+ amorphous sediments. Urine electrolytes show sodium 13, creatinine 84, po tassium 46. Chloride 18. Discussed with the telecom network manager. Kidney function is stabilized probably will not need dialysis. Renal ultrasound without hydronephrosis or increased echogenicity. 05/10: Urine output 500 mL. Creatinine 6.25, BUN 77. Discussed with the telecom network manager. 05/12/2023: Renal function is slowly and proving we will continue to monitor appreciate nephrology 5. Acute liver injury possible due to ischemic hepatitis due to hypotension or infectious viral hepatitis: Admission CMP with T. bili 0.70, AST/LT 185/49, alk phos 76, last AST 01/31/2023 noted to be normal at 20. Monitor liver chemistry 05/09: Liver chemistry better. ALT 11 AST 83. 6. Lactic acidosis: Admission lactic acid 4.5, suspect multifactorial with rhabdomyolysis as well as acute kidney injury with respiratory failure, continue slow IV 7. CAD: Status post PCI x 6, continue aspirin, statin, per current list not on beta-nevaeh therapy however given hypotension this will be deferred. 8. 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 ED initiated TSH 0.27 however free T41.07, subclinical. #9. Chronic iron deficiency anemia: Admission hemoglobin 13.7, MCV 94, baseline hemoglobin recently 13-14, stable, continue iron supplementation and CBC trending. 05/10: Hemoglobin 9.2. #10. Parkinson's disease: We will continue patient home Sinemet regimen, complicates presentation, maintain on fall and aspiration precautions, PT/OT/case management consulted for discharge planning. #11. Anxiety and depression: continue patient home escitalopram regimen. #12. Hyperlipidemia: continue patient home statin therapy; however, if LFT rises 3x ULN will hold. #13. History ICH: Unclear history of event, current CT of the head with no acute intracranial findings as noted. #14. BPH: Per current list not on regimen, clarifying we will add if appropriate. #15. BENITA: Clarifying if patient uses CPAP nightly. DVT prophylaxis: heparin. Charges/Coding Visit Charges Inpatient E&M: 60965 Subs Hosp L2
[2023-05-14] MEDS: Hydrocortisone 10 MG Tablet PO ×2 (09:30→21:33)
[2023-05-14] MEDS: Aspirin E.C. 81 MG Tablet PO (09:31)
[2023-05-14] MEDS: Heparin Injection (Vial) 5,000 UNIT/ML VIAL 5000 UNIT SC ×2 (09:31→21:34)
[2023-05-14] MEDS: Escitalopram Oxalate 10 MG Tablet PO (09:31)
[2023-05-14] MEDS: guaiFENesin 10 ML UDC (200MG/10ML) PO ×4 (12:18→21:34)
[2023-05-14] MEDS: Menthol/Lanolin/Calamine/Znox 113 GM Tube 1 APPLIC TOPICAL ×2 (14:51→21:34)
[2023-05-14] MEDS: Carbidopa/Levodopa 25/100 Tablet PO ×2 (14:51→21:33)
[2023-05-14] MEDS: Acetaminophen 325 MG Tablet 650 MG PO (15:55)
[2023-05-15] VITALS (7 sets, daily range): BP systolic 91–140; BP diastolic 53–70; PULSE 54–65; RESP 16–24; TEMP 36.4–37; O2SAT 93–96; BMI 27.0
[2023-05-15] MEDS: guaiFENesin 10 ML UDC (200MG/10ML) PO ×6 (02:34→22:11)
[2023-05-15] MEDS: Menthol/Lanolin/Calamine/Znox 113 GM Tube 1 APPLIC TOPICAL ×3 (05:21→22:11)
[2023-05-15] MEDS: Levothyroxine 125 MCG Tablet PO (05:21)
[2023-05-15] MEDS: Carbidopa/Levodopa 25/100 Tablet PO ×3 (05:21→22:11)
[2023-05-15 07:14] LABS: Anion Gap 6 (5-15); BUN 67 mg/dL (7-18); BUN/Creat Ratio 12.7 RATIO (10-20); Calcium,Total 8.2 mg/dL (8.5-10.1); Chloride 121 mmol/L (98-107); Creatinine, Serum 5.26 mg/dL (0.70-1.30); EST Glomerular Filtration Rate 11 mL/min (>60); Est Glom Filt Rate - Afr Amer 14 mL/min (>60); Estimated Creatinine Clearance 11.01 ml/min; Glucose 115 mg/dL (74-106); Potassium 3.9 mmol/L (3.5-5.1); Sodium Level 150 mmol/L (136-145)
[2023-05-15] MEDS: Budesonide Respules 0.5 MG/2 ML AMPUL.NEB. INHALATION ×2 (07:21→19:13)
[2023-05-15 07:59] LABS: Absolute Lymphocyte Count 1.01 X10^3/uL (0.83-4.51); Absolute Neutrophil Count 8.3 X10^3/uL (2.0-7.7); Basophil# 0.03 X10^3/uL; Basophil% 0.3 % (0-1); Eosinophil# 0.31 X10^3/uL; Hematocrit 26.8 % (40-54); Hemoglobin 8.1 g/dL (13.0-16.5); Lymphocyte # 1.01 X10^3/ul (0.83-4.51); Lymphocyte % 9.9 % (19-41); Mean Corp Hgb Conc 30.2 g/dL (32-36); Mean Corpuscular Hgb 30.6 pg (27.0-32.0); Mean Corpuscular Volume 101.1 fL (80-94); Mean Platelet Vol. 10.7 fl (6.2-12.0); Monocyte# 0.32 X10^3/uL; Monocyte% 3.1 % (0-10); NRBC Flagged by Analyzer 0 % (0-5); Neutrophil % 81.3 % (47-70); Platelet Count 285 K/mm3 (150-450); RBC Distribution Width CV 14.7 % (11.6-14.6); RBC Distribution Width SD 54.2 fl (35.1-43.9); Red Blood Count 2.65 M/mm3 (4.6-6.2); White Blood Count 10.2 K/mm3 (4.4-11.0)
--- NOTE | 2023-05-15 09:10 | PN.HOSP_ITS ---
Subjective Subjective Had EGD yesterday with candidiasis and an oozing gastric ulcer doing well, no issues overnight Objective Data Objective Data Vital Signs: Vital Signs Temp Pulse Resp BP Pulse Ox O2 Del Method O2 Flow Rate 97.5 F L 56 L 16 140/70 H 93 Room Air 3 05/15/23 03:00 05/15/23 07:22 05/15/23 07:22 05/15/23 03:00 05/15/23 07:22 05/15/23 07:22 05/14/23 09:26 FiO2 50 05/10/23 01:00 Oxygen Flow Rate (L/min) 3 Oxygen Delivery Method Room Air Weight: 183 lb 3.266 oz Body Mass Index (BMI) 27.0 Intake & Output: Intake and Output for Last 24 Hours 05/14/23 05/15/23 05/16/23 03:59 03:59 03:59 Intake Total 790 / 790 190 / 190 150 / 150 Output Total 1000 / 1000 1275 / 1275 325 / 325 Balance -210 / -210 -1085 / -1085 -175 / -175 Lab / Micro Data 05/15/23 05:05 05/15/23 05:05 Labs: Laboratory Results - last 24 hr 05/15/23 05:05: WBC 10.2, RBC 2.65 L, Hgb 8.1 L, Hct 26.8 L, MCV 101.1 H, MCH 30.6, MCHC 30.2 L, RDW Std Deviation 54.2 H, RDW Coeff of Delisa 14.7 H, Plt Count 285, MPV 10.7, Immature Gran % (Auto) 2.400 H, Neut % (Auto) 81.3 H, Lymph % (Auto) 9.9 L, Kane % (Auto) 3.1, Eos % (Auto) 3.0, Baso % (Auto) 0.3, Absolute Neuts (auto) 8.3 H, Absolute Lymphs (auto) 1.01, Nucleated RBC % 0, Sodium 150 H , Potassium 3.9, Chloride 121 H, Carbon Dioxide 23.0, Anion Gap 6, BUN 67 H, Creatinine 5.26 H, Estim Creat Clear Calc 11.01, Est GFR (MDRD) Af Amer 14 L, Est GFR (MDRD) Non-Af 11 L, BUN/Creatinine Ratio 12.7, Glucose 115 H, Calcium 8.2 L Micro: Microbiology 05/08/23 15:15 Urine Catheter - Thompson Urine Culture - Final Culture exhibits no growth. 05/05/23 13:15 Blood Culture (Wb) - Anticubital Left Blood Culture - Final No growth in 5 days. 05/05/23 12:47 Blood Culture (Wb) - Anticubital Right Blood Culture - Final No growth in 5 days. 05/05/23 12:47 Urine, Catheterized Urine Culture - Final Enterococcus faecalis 05/05/23 17:50 Stool C. difficile DNA Amplification - Final 05/05/23 21:15 Stool Enteric Bacteriology - Final 05/05/23 17:50 Mucosa - Nasopharyngeal Coronavirus COVID-19 PCR - Final SARS-CoV-2 (COVID 19) 05/05/23 17:50 Mucosa - Nasopharyngeal Respiratory Panel (PCR) - Final 05/05/23 18:11 Urine Catheter - Catheter Legionella Antigen - Final 05/05/23 18:11 Urine Catheter - Catheter Streptococcus pneumoniae Antigen (M - Final Physical Exam Narrative General: Alert, oriented x1, Cooperative, No apparent distress HEENT: Atraumatic, PERRLA, EOMI, Normocephalic Oral: Moist Mucosa Neck: Supple, No JVD Lungs: Diminished, Normal air movement, No rhonchi, No wheeze, No rales Cardiovascular: Regular rate, Regular Rhythm, Normal S1, Normal S2, No murmurs Abdomen: Soft, Non Tender, Non-Distended, No Hepato-splenomegaly Extremities: No edema, Capillary Refill Less than 3 Seconds Skin: No rashes, No breakdown Musculoskeletal: No Tenderness to Palpation of Joints or Extremities Neurological: Motor Exam 5/5 strength throughout, Sensory exam intact to light touch and pain Psych/Mental Status: Flat Assessment & Plan Assessment/Plan (1) Shock: PLAN: Plan #1. Acute Encephalopathy, Multifactorial, most likely COVID-19 infectious/metabolic encephalopathy/dysphagia/hypernatremia: Patient is being admitted in ICU. Continue IV fluid hydration at slow rate. Keep pulse ox more than 90%. Continue IV steroid. MRI brain is done, report not available. 2D echo is ordered. ECHO 12/25/2019 with normal LV systolic function, EF 60%, mildly enlarged LA, mild MVI, trivial TVI, trivial MARIANO, trivial PVI, RVSP 25 mmHg TSH and free T3 low but free T4 normal possible euthyroid sick syndrome. 05/10: Acute encephalopathy has resolved. 05/11/2023: Likely has some baseline dementia exacerbated by his COVID infection 05/13/2023: We will consult GI because of his modified barium swallow 05/14/2023: Plan for EGD today per GI 05/15/2023: We will start him on the nystatin swish and spit as well as the Diflucan and Protonix. We will also place him on D5W to try to increase his free water intake 2. Hypotension, most likely due to intravascular volume depletion/hypovolemia, possibility of acute adrenal insufficiency: Patient on IV hydrocortisone 50 mg try to wean from tomorrow. Patient is off Levophed today. Patient has a right IJ CVC catheter. Patient on IV empiric antibiotic for suspected pneumonia. Patient was on Levophed for very short period of time currently off Levophed. 05/08: BP in 140s. Gradually weaning hydrocortisone,50 mg daily. Infectious work-up including enteric bacteriology panel, respiratory panel, are negative. Blood cultures negative for 48 hours. We will discontinue the antibiotic. I do not think septic shock reason for hypotension. Empiric antibiotics discontinued. 05/09: Patient was dizzy in the morning. Patient blood pressure was in 70s in the morning, 1 L Ringer lactate bolus given but patient blood pressure still in the 60s. Patient on hydrocortisone increased to 50 mg every 12 hourly. Net positive fluid balance 7.5 L. Dizziness resolved after IV fluid bolus but pat ient blood pressure is still low therefore transferred to ICU. 05/10: Patient did not require vasopressor support. Maintaining blood pressure 119/69 05/11/2023: Resolved 3. COVID-19 pneumonia with hypoxemia: Patient has COVID-19 pneumonia. Patient on IV steroid. Does not meet criteria for IV remdesivir. Serial troponin assays shows decreasing trend. Most likely acute myocardial injury from COVID- 19 pneumonia due to increased demand. Patient is COVID PCR-positive. Patient has mild cough. Denies shortness of breath. Mild cough/choking sensation while drinking water with tingling sensation. 05/07: Continue antibiotic 05/11/2023: Off antibiotics and off of stress dose steroids we will continue to monitor likely need SNF placement 4. Acute kidney injury and acute rhabdomyolysis leading to ATN: Admission total creatinine kinase 3226 with lactic acidosis, acute kidney injury and transam initis with elevated AST consistent with acute rhabdomyolysis.Admission BUN/Cr 44/5.39, prior baseline creatinine noted to be primarily 1.4-1.7, most recent 01/31/2023 creatinine 1.72. Monitor kidney function. Avoid nephrotoxic medications 05/07: Creatinine is still high 5.1. CPK level 812. Urine output about 600 mL yesterday and 360 mill since midnight. Urine is turbid looking. 05/08: Monitor kidney function.CK level better. First UA shows WBC, bacteria, mucus 0. [place] UA. Repeat UA, urine electrolytes, osmolality and urine culture ordered. Started on bicarb drip. Nephrology consult requested. 05/09 creatinine stable as compared to yesterday, 6.3. Urine is still cloudy. Urine shows RBC 10-25 cells, LE 25, WBC 0-5 cells. Nitrite negative. 3+ amorphous sediments. Urine electrolytes show sodium 13, creatinine 84, potassium 46. Chloride 18. Discussed with the high school mathematics teacher. Kidney function is stabilized probably will not need dialysis. Renal ultrasound without hydronephrosis or increased echogenicity. 05/10: Urine output 500 mL. Creatinine 6.25, BUN 77. Discussed with the high school mathematics teacher. 05/12/2023: Renal function is slowly and proving we will continue to monitor appreciate nephrology 05/15/2023: Given his poor p.o. intake we will increase his free water with D5W to try to decrease his sodium 5. Acute liver injury possible due to ischemic hepatitis due to hypotension or infectious viral hepatitis: Admission CMP with T. bili 0.70, AST/LT 185/49, alk phos 76, last AST 01/31/2023 noted to be normal at 20. Monitor liver chemistry 05/09: Liver chemistry better. ALT 11 AST 83. 6. Lactic acidosis: Admission lactic acid 4.5, suspect multifactorial with rhabdomyolysis as well as acute kidney injury with respiratory failure, continue slow IV 7. CAD: Status post PCI x 6, continue aspirin, statin, per current list not on beta-nevaeh therapy however given hypotension this will be deferred. 8. 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 ED initiated TSH 0.27 however free T41.07, subclinical. #9. Chronic iron deficiency anemia: Admission hemoglobin 13.7, MCV 94, baseline hemoglobin recently 13-14, stable, continue iron supplementation and CBC trending. 05/10: Hemoglobin 9.2. #10. Parkinson's disease: We will continue patient home Sinemet regimen, complicates presentation, maintain on fall and aspiration precautions, PT/OT/case management consulted for discharge planning. #11. Anxiety and depression: continue patient home escitalopram regimen. #12. Hyperlipidemia: continue patient home statin therapy; however, if LFT rises 3x ULN will hold. #13. History ICH: Unclear history of event, current CT of the head with no acute intracranial findings as noted. #14. BPH: Per current list not on regimen, clarifying we will add if appropriate. #15. BENITA: Clarifying if patient uses CPAP nightly. DVT: heparin. Charges/Coding Visit Charges Inpatient E&M: 62922 Subs Hosp L2
[2023-05-15] MEDS: Escitalopram Oxalate 10 MG Tablet PO (10:56)
[2023-05-15] MEDS: Pantoprazole Sodium 40 MG Tablet PO ×2 (10:56→22:11)
[2023-05-15] MEDS: Heparin Injection (Vial) 5,000 UNIT/ML VIAL 5000 UNIT SC ×2 (10:56→22:11)
[2023-05-15] MEDS: NYSTATIN 500,000 UNIT/5 ML UDC 500000 UNIT PO ×4 (10:56→22:11)
[2023-05-15] MEDS: Fluconazole 100 MG Tablet PO (10:57)
[2023-05-15] MEDS: Hydrocortisone 10 MG Tablet PO ×2 (10:57→22:11)
[2023-05-15] MEDS: Aspirin E.C. 81 MG Tablet PO (10:57)
[2023-05-15] MEDS: Dextrose 5%-Water (1000mL Bag) 1,000 ML 100 ML IV ×2 (11:17→20:57)
--- NOTE | 2023-05-15 22:56 | RAD_ITS ---
We are attempting to reach an attending provider to discuss findings. An addendum with communication details will be sent when the communication is complete. EXAM: XR CHEST, 1 VIEW CLINICAL INDICATION: Respiratory change, increase in oxygen demand. TECHNIQUE: Frontal view of the chest. COMPARISON: Previous chest radiographs of 05/06/2023 and 05/05/2023. FINDINGS: LUNGS AND PLEURAL SPACES: Interval development of mild patchy airspace disease within the right mid to lower lung. Interval development of moderate patchy airspace disease within the left lower lung. No pneumothorax or pleural effusion. HEART: Heart size is mildly increased is now upper normal. Pulmonary vasculature remains within normal limits. No pulmonary venous hypertension. MEDIASTINUM: Stable elongation and calcification of the thoracic aorta. BONES/JOINTS: Thoracic degenerative spurring again noted. SOFT TISSUES: Unremarkable. TUBES, LINES AND DEVICES: Central venous catheter has been removed. Thoracolumbar fixation rods and screws remain in place. RAD/Chest 1 View (Portable) IMPRESSION: Interval development of patchy airspace disease in the right mid to lower lung and within the left lower lung, most likely due to bilateral pneumonia. Nonstandard communication protocol initiated. Electronically Signed: Tom Macdonald MD at 23:19 EDT ,
--- NOTE | 2023-05-15 23:46 | PCM.PN.BLA ---
Progress Note Nurse reports worsening respiratory status. Chest x-ray with bilateral infiltrates. Patient somnolent. Patient received IV fluids. Discussed with pharmacy; patient was previously on vancomycin and Zosyn. Antibiotics was stopped around May 07. We will start patient on Unasyn. Will stop IV fluids and gave Lasix 20 mg IV push x1
[2023-05-16] VITALS (7 sets, daily range): BP systolic 98–139; BP diastolic 53–73; PULSE 54–68; RESP 16–18; TEMP 36.5–36.8; O2SAT 94–100; BMI 26.9
[2023-05-16] MEDS: Ampicillin/Sulbactam 3 GM in 0.9% Normal Saline (100mL MB+) 100 ML IV ×2 (00:04→20:39)
[2023-05-16] MEDS: Furosemide 20 MG/2 ML VIAL IV (00:05)
[2023-05-16] MEDS: Menthol/Lanolin/Calamine/Znox 113 GM Tube 1 APPLIC TOPICAL ×3 (05:45→20:37)
[2023-05-16] MEDS: Budesonide Respules 0.5 MG/2 ML AMPUL.NEB. INHALATION ×2 (07:13→19:51)
[2023-05-16 07:32] LABS: Absolute Lymphocyte Count 0.96 X10^3/uL (0.83-4.51); Absolute Neutrophil Count 9.3 X10^3/uL (2.0-7.7); Basophil# 0.04 X10^3/uL; Basophil% 0.4 % (0-1); Eosinophil# 0.41 X10^3/uL; Eosinophils% 3.7 % (0-5); Hematocrit 26.7 % (40-54); Hemoglobin 8.2 g/dL (13.0-16.5); Lymphocyte # 0.96 X10^3/ul (0.83-4.51); Lymphocyte % 8.6 % (19-41); Mean Corp Hgb Conc 30.7 g/dL (32-36); Mean Corpuscular Hgb 30.4 pg (27.0-32.0); Mean Corpuscular Volume 98.9 fL (80-94); Mean Platelet Vol. 10.3 fl (6.2-12.0); Monocyte# 0.32 X10^3/uL; Monocyte% 2.9 % (0-10); NRBC Flagged by Analyzer 0 % (0-5); Neutrophil # 9.27 X10^3/uL (2.7-7.7); Neutrophil % 82.8 % (47-70); Platelet Count 308 K/mm3 (150-450); RBC Distribution Width CV 14.8 % (11.6-14.6); RBC Distribution Width SD 53.2 fl (35.1-43.9); White Blood Count 11.2 K/mm3 (4.4-11.0)
--- NOTE | 2023-05-16 07:35 | EGD_PTH ---
PATIENT: KEN ALFRED LOC: [facility] U#:[id number] AGE/SX: 82/M ROOM: [facility] RE05/05/[address]: Dr. Omer Drummond DO : 1940 BED: 1 DIS: 05/19/2023 SPEC #: [id number] RECD: 05/16/23 10:43 STATUS: KHURRAM HARMAN #: [id number] MAXIMINO: 05/16/23 07:[address]: Ra Monsehsaan DEPT: SURGICAL PATHOLOGY RECD BY: Vanessa Pittman ENTERED: 05/16/23 14:02 SP TYPE: EGD BIOPSY OTHR DR: MD Dr. García Browne MD Dr. Derek Brown, DO Dr. Jayaprakas Dasari, MD Dr. Nicholas F Kotsonis, MD Dr. Prakash Chand, MD Tissues: A - Esophagus, NOS B - Gastric mucous membrane Procedures: Special Stain Group I Surgery Specimen Level IV GMS Stain (control) HEADER OPERATION: EGD with biopsy and dilation PRE-OP DIAGNOSIS: Esophageal dysphagia TISSUE SUBMITTED: A - Random esophagus biopsy, B - Gastric ulcer biopsy MICROSCOPIC DIAGNOSIS A. Esophagus, random biopsy: Focal acute esophagitis. Abundant fungal hyphae and budding forms present. See comment. B. Gastric ulcer, biopsy: Mild chronic inflammation with focal acute inflammation. Fungal hyphae and budding forms present. See comment. AM:sammi 05/17/2023 COMMENT A. GMS stain with matched control was used in the evaluation of this case. B. The results of immunohistochemistry for Helicobacter pylori will be reported separately ([id number]). GMS stain with matched control was used in the evaluation of this case. MICROSCOPIC DESCRIPTION Slides are reviewed. GROSS DESCRIPTION A - Received in fixative is one container labeled with the patient's name and designated biopsy random esophagus. The specimen consists of multiple irregular fragments of light patel soft tissue that in aggregate measure 1.0 x 0.5 x 0.1 cm. The specimen is totally submitted in one cassette. B - Received in fixative is one container labeled with the patient's name and designated biopsy gastric ulcer. The specimen consists of multiple irregular fragments of light patel soft tissue that in aggregate measure 0.8 x 0.3 x 0.1 cm. The specimen is totally submitted in one cassette. / SJ:rg 05/16/2023 TC:3 CPT: 60495 x2, 40926 x2
[2023-05-16 08:15] LABS: Anion Gap 8 (5-15); BUN 60 mg/dL (7-18); BUN/Creat Ratio 12.4 RATIO (10-20); Calcium,Total 7.7 mg/dL (8.5-10.1); Chloride 118 mmol/L (98-107); Creatinine, Serum 4.85 mg/dL (0.70-1.30); EST Glomerular Filtration Rate 12 mL/min (>60); Est Glom Filt Rate - Afr Amer 15 mL/min (>60); Estimated Creatinine Clearance 11.95 ml/min; Glucose 125 mg/dL (74-106); Potassium 3.6 mmol/L (3.5-5.1); Sodium Level 148 mmol/L (136-145)
[2023-05-16] MEDS: Dextrose 5%-Water (1000mL Bag) 1,000 ML 100 ML IV ×2 (09:27→18:15)
--- NOTE | 2023-05-16 09:56 | CASEMGMT ---
Discharge Planning Updates sent to [facility]. Elle Stevens, Discharge Planning Asst.
--- NOTE | 2023-05-16 10:48 | PN.RENAL_ITS ---
Subjective Subjective Resting in bed. Family at bedside. Overnight patient became breathless, IV fluids stopped and patient received a dose of Lasix IV. Objective Data Objective Data Vital Signs: Vital Signs Temp Pulse Resp BP Pulse Ox O2 Del Method O2 Flow Rate 97.9 F 54 L 18 139/65 H 94 Nasal Cannula 1 05/16/23 10:42 05/16/23 10:42 05/16/23 10:42 05/16/23 10:42 05/16/23 10:42 05/16/23 10:42 05/16/23 10:42 FiO2 50 05/10/23 01:00 Oxygen Flow Rate (L/min) 1 Oxygen Delivery Method Nasal Cannula Weight: 82.7 kg Body Mass Index (BMI) 26.9 Intake & Output: Intake and Output for Last 24 Hours 05/14/23 05/15/23 05/16/23 23:59 23:59 23:59 Intake Total 190 / 190 1563.34 / 1563.34 112 / 112 Output Total 1475 / 1475 870 / 1070 925 / 925 Balance -1285 / -1285 693.34 / 493.34 -813 / -813 Lab / Micro Data 05/16/23 07:24 05/16/23 07:24 Labs: Laboratory Results - last 24 hr 05/16/23 07:24: WBC 11.2 H, RBC 2.70 L, Hgb 8.2 L, Hct 26.7 L, MCV 98.9 H, MCH 30.4, MCHC 30.7 L, RDW Std Deviation 53.2 H, RDW Coeff of Delisa 14.8 H, Plt Count 308, MPV 10.3, Immature Gran % (Auto) 1.600 H, Neut % (Auto) 82.8 H, Lymph % (Auto) 8.6 L, [place] % (Auto) 2.9, Eos % (Auto) 3.7, Baso % (Auto) 0.4, Absolute Neuts (auto) 9.3 H, Absolute Lymphs (auto) 0.96, Nucleated RBC % 0, Sodium 148 H , Potassium 3.6, Chloride 118 H, Carbon Dioxide 22.0, Anion Gap 8, BUN 60 H, Creatinine 4.85 H, Estim Creat Clear Calc 11.95, Est GFR (MDRD) Af Amer 15 L, Est GFR (MDRD) Non-Af 12 L, BUN/Creatinine Ratio 12.4, Glucose 125 H, Calcium 7.7 L Micro: Microbiology 05/08/23 15:15 Urine Catheter - Thompson Urine Culture - Final Culture exhibits no growth. 05/05/23 13:15 Blood Culture (Wb) - Anticubital Left Blood Culture - Final No growth in 5 days. 05/05/23 12:47 Blood Culture (Wb) - Anticubital Right Blood Culture - Final No growth in 5 days. 05/05/23 12:47 Urine, Catheterized Urine Culture - Final Enterococcus faecalis 05/05/23 17:50 Stool C. difficile DNA Amplification - Final 05/05/23 21:15 Stool Enteric Bacteriology - Final 05/05/23 17:50 Mucosa - Nasopharyngeal Coronavirus COVID-19 PCR - Final SARS-CoV-2 (COVID 19) 05/05/23 17:50 Mucosa - Nasopharyngeal Respiratory Panel (PCR) - Final 05/05/23 18:11 Urine Catheter - Catheter Legionella Antigen - Final 05/05/23 18:11 Urine Catheter - Catheter Streptococcus pneumoniae Antigen (M - Final Radiography Diagnostic Testing: Radiology Impression Chest X-Ray 05/15/23 22:56 IMPRESSION: Interval development of patchy airspace disease in the right mid to lower lung and within the left lower lung, most likely due to bilateral pneumonia. Nonstandard communication protocol initiated. Electronically Signed: Tom Macdonald MD at 23:19 EDT , ADDENDUM: 05/15/23 2333 IMPRESSION: Interval development of patchy airspace disease in the right mid to lower lung and within the left lower lung, most likely due to bilateral pneumonia. Nonstandard communication protocol initiated. N.B. : The above Results were Read Back by Tom Macdonald MD to DAVID Buenrostro RN, and understanding confirmed on 05/15/2023 23:26:40 (ET). Electronically Signed: Tom Macdonald MD at 23:19 EDT , Physical Exam Narrative Alert and oriented, no apparent distress S1, S2, RRR Diminished breath sounds, no rhonchi or rales Abdomen soft, nontender No pitting edema Assessment & Plan Assessment/Plan (1) GERTRUDE (acute kidney injury): PLAN: Baseline creatinine appears to be around 1.6 or so. Came in with a creatinine of 5.39, over a few days improved, but then creatinine peaked 6.41 on 05/08. Again serum creatinine slowly improving daily. Today his creatinine 4.85 mg/dL, nonoliguric. Renal ultrasound without any hydronephrosis, increased echogenicity Urine analysis is not impressive, he did have blood in the urine consistent with rhabdomyolysis. Clinically no signs of volume overload. Hypotension is resolved, did not require pressors COVID-pneumonia, currently on treatment. Currently on nasal cannula 1 L - Acute renal failure is likely due to ATN with slow recovery. CPK level was not high enough to cause GERTRUDE. He is making urine. Potassium levels, acid-base status is okay. No acute indication for [employer]. Likely recovering, but is a slow recovery. -Hypernatremia likely from lack of free water. Appetite is poor per staff, not eating or drinking. Patient is now n.p.o. His sodium levels elevated past few days between 147-150. Yesterday patient was started on D5W but stopped overnight due to worsening respiratory status; CXR showed b/l pneumonia. Patient is currently n.p.o. however patient was on pur?e diet with supervision with food and drink.
--- NOTE | 2023-05-16 11:00 | CASEMGMT ---
Patient's pre-cert for SW did . Patient will need new authorization to go to [facility]. Vianca GUILLERMO
[2023-05-16] MEDS: Heparin Injection (Vial) 5,000 UNIT/ML VIAL 5000 UNIT SC ×2 (11:16→20:38)
[2023-05-16] MEDS: Aspirin E.C. 81 MG Tablet PO (11:16)
[2023-05-16] MEDS: NYSTATIN 500,000 UNIT/5 ML UDC 500000 UNIT PO ×4 (11:16→20:39)
[2023-05-16] MEDS: Pantoprazole Sodium 40 MG Tablet PO ×2 (11:16→20:39)
[2023-05-16] MEDS: Escitalopram Oxalate 10 MG Tablet PO (11:16)
[2023-05-16] MEDS: Hydrocortisone 10 MG Tablet PO ×2 (11:16→20:39)
[2023-05-16] MEDS: Fluconazole 100 MG Tablet PO (11:16)
--- NOTE | 2023-05-16 11:49 | PCM.PN.HOSP ---
Subjective Subjective Had some transient shortness of breath so his IV fluids were stopped which are trying to lower his sodium. Objective Data Objective Data Vital Signs: Vital Signs Temp Pulse Resp BP Pulse Ox O2 Del Method O2 Flow Rate 97.9 F 54 L 18 139/65 H 94 Nasal Cannula 1 05/16/23 10:42 05/16/23 10:42 05/16/23 10:42 05/16/23 10:42 05/16/23 10:42 05/16/23 10:42 05/16/23 10:42 FiO2 50 05/10/23 01:00 Oxygen Flow Rate (L/min) 1 Oxygen Delivery Method Nasal Cannula Weight: 182 lb 5.156 oz Body Mass Index (BMI) 26.9 Intake & Output: Intake and Output for Last 24 Hours 05/15/23 05/16/23 05/17/23 03:59 03:59 03:59 Intake Total 190 / 190 1675.34 / 1675.34 Output Total 1275 / 1275 1070 / 1070 725 / 725 Balance -1085 / -1085 605.34 / 605.34 -725 / -725 Lab / Micro Data 05/16/23 07:24 05/16/23 07:24 Labs: Laboratory Results - last 24 hr 05/16/23 07:24: WBC 11.2 H, RBC 2.70 L, Hgb 8.2 L, Hct 26.7 L, MCV 98.9 H, MCH 30.4, MCHC 30.7 L, RDW Std Deviation 53.2 H, RDW Coeff of Delisa 14.8 H, Plt Count 308, MPV 10.3, Immature Gran % (Auto) 1.600 H, Neut % (Auto) 82.8 H, Lymph % (Auto) 8.6 L, [place] % (Auto) 2.9, Eos % (Auto) 3.7, Baso % (Auto) 0.4, Absolute Neuts (auto) 9.3 H, Absolute Lymphs (auto) 0.96, Nucleated RBC % 0, Sodium 148 H, Potassium 3.6, Chloride 118 H, Carbon Dioxide 22.0, Anion Gap 8, BUN 60 H, Creatinine 4.85 H, Estim Creat Clear Calc 11.95, Est GFR (MDRD) Af Amer 15 L, Est GFR (MDRD) Non-Af 12 L, BUN/Creatinine Ratio 12.4, Glucose 125 H, Calcium 7.7 L Micro: Microbiology 05/08/23 15:15 Urine Catheter - Thompson Urine Culture - Final Culture exhibits no growth. 05/05/23 13:15 Blood Culture (Wb) - Anticubital Left Blood Culture - Final No growth in 5 days. 05/05/23 12:47 Blood Culture (Wb) - Anticubital Right Blood Culture - Final No growth in 5 days. 05/05/23 12:47 Urine, Catheterized Urine Culture - Final Enterococcus faecalis 05/05/23 17:50 Stool C. difficile DNA Amplification - Final 05/05/23 21:15 Stool Enteric Bacteriology - Final 05/05/23 17:50 Mucosa - Nasopharyngeal Coronavirus COVID-19 PCR - Final SARS-CoV-2 (COVID 19) 05/05/23 17:50 Mucosa - Nasopharyngeal Respiratory Panel (PCR) - Final 05/05/23 18:11 Urine Catheter - Catheter Legionella Antigen - Final 05/05/23 18:11 Urine Catheter - Catheter Streptococcus pneumoniae Antigen (M - Final Radiography Diagnostic Testing: Radiology Impression Chest X-Ray 05/15/23 22:56 IMPRESSION: Interval development of patchy airspace disease in the right mid to lower lung and within the left lower lung, most likely due to bilateral pneumonia. Nonstandard communication protocol initiated. Electronically Signed: Tom Macdonald MD at 23:19 EDT , ADDENDUM: 05/15/23 2333 IMPRESSION: Interval development of patchy airspace disease in the right mid to lower lung and within the left lower lung, most likely due to bilateral pneumonia. Nonstandard communication protocol initiated. N.B. : The above Results were Read Back by Tom Macdonald MD to DAVID Buenrostro RN, and understanding confirmed on 05/15/2023 23:26:40 (ET). Electronically Signed: Tom Macdonald MD at 23:19 EDT , Physical Exam Narrative General: Alert, oriented x1, Cooperative, No apparent distress HEENT: Atraumatic, PERRLA, EOMI, Normocephalic Oral: Moist Mucosa Neck: Supple, No JVD Lungs: Diminished, Normal air movement, No rhonchi, No wheeze, No rales Cardiovascular: Regular rate, Regular Rhythm, Normal S1, Normal S2, No murmurs Abdomen: Soft, Non Tender, Non-Distended, No Hepato-splenomegaly Extremities: No edema, Capillary Refill Less than 3 Seconds Skin: No rashes, No breakdown Musculoskeletal: No Tenderness to Palpation of Joints or Extremities Neurological: Motor Exam 5/5 strength throughout, Sensory exam intact to light touch and pain Psych/Mental Status: Flat Assessment & Plan Assessment/Plan (1) Shock: PLAN: Plan #1. Acute Encephalopathy, Multifactorial, most likely COVID-19 infectious/metabolic encephalopathy/dysphagia/hypernatremia: Patient is being admitted in ICU. Continue IV fluid hydration at slow rate. Keep pulse ox more than 90%. Continue IV steroid. MRI brain is done, report not available. 2D echo is ordered. ECHO 12/25/2019 with normal LV systolic function, EF 60%, mildly enlarged LA, mild MVI, trivial TVI, trivial MARIANO, trivial PVI, RVSP 25 mmHg TSH and free T3 low but free T4 normal possible euthyroid sick syndrome. 05/10: Acute encephalopathy has resolved. 05/11/2023: Likely has some baseline dementia exacerbated by his COVID infection 05/13/2023: We will consult GI because of his modified barium swallow 05/14/2023: Plan for EGD today per GI 05/15/2023: We will start him on the nystatin swish and spit as well as the Diflucan and Protonix. We will also place him on D5W to try to increase his free water intake 05/16/2023: We will continue with his D5W, his shortness of breath overnight was transient and it is necessary to lower his sodium which is down to 148 from 150 2. Hypotension, most likely due to intravascular volume depletion/hypovolemia, possibility of acute adrenal insufficiency: Patient on IV hydrocortisone 50 mg try to wean from tomorrow. Patient is off Levophed today. Patient has a right IJ CVC catheter. Patient on IV empiric antibiotic for suspected pneumonia. Patient was on Levophed for very short period of time currently off Levophed. 05/08: BP in 140s. Gradually weaning hydrocortisone,50 mg daily. Infectious work-up including enteric bacteriology panel, respiratory panel, are negative. Blood cultures negative for 48 hours. We will discontinue the antibiotic. I do not think septic shock reason for hypotension. Empiric antibiotics discontinued. 05/09: Patient was dizzy in the morning. Patient blood pressure was in 70s in the morning, 1 L Ringer lactate bolus given but patient blood pressure still in the 60s. Patient on hydrocortisone increased to 50 mg every 12 hourly. Net positive fluid balance 7.5 L. Dizziness resolved after IV fluid bolus but patient blood pressure is still low therefore transferred to ICU. 05/10: Patient did not require vasopressor support. Maintaining blood pressure 119/69 05/11/2023: Resolved 3. COVID-19 pneumonia with hypoxemia: Patient has COVID-19 pneumonia. Patient on IV steroid. Does not meet criteria for IV remdesivir. Serial troponin assays shows decreasing trend. Most likely acute myocardial injury from COVID-19 pneumonia due to increased demand. Patient is COVID PCR-positive. Patient has mild cough. Denies shortness of breath. Mild cough/choking sensation while drinking water with tingling sensation. 05/07: Continue antibiotic 05/11/2023: Off antibiotics and off of stress dose steroids we will continue to monitor likely need SNF placement 4. Acute kidney injury and acute rhabdomyolysis leading to ATN: Admission total creatinine kinase 3226 with lactic acidosis, acute kidney injury and transaminitis with elevated AST consistent with acute rhabdomyolysis.Admission BUN/Cr 44/5.39, prior baseline creatinine noted to be primarily 1.4-1.7, most recent 01/31/2023 creatinine 1.72. Monitor kidney function. Avoid nephrotoxic medications 05/07: Creatinine is still high 5.1. CPK level 812. Urine output about 600 mL yesterday and 360 mill since midnight. Urine is turbid looking. 05/08: Monitor kidney function.CK level better. First UA shows WBC, bacteria, mucus 0. [place] UA. Repeat UA, urine electrolytes, osmolality and urine culture ordered. Started on bicarb drip. Nephrology consult requested. 05/09 creatinine stable as compared to yesterday, 6.3. Urine is still cloudy. Urine shows RBC 10-25 cells, LE 25, WBC 0-5 cells. Nitrite negative. 3+ amorphous sediments. Urine electrolytes show sodium 13, creatinine 84, potassium 46. Chloride 18. Discussed with the dispenser operator. Kidney function is stabilized probably will not need dialysis. Renal ultrasound without hydronephrosis or increased echogenicity. 05/10: Urine output 500 mL. Creatinine 6.25, BUN 77. Discussed with the dispenser operator. 05/12/2023: Renal function is slowly and proving we will continue to monitor appreciate nephrology 05/15/2023: Given his poor p.o. intake we will increase his free water with D5W to try to decrease his sodium 5. Acute liver injury possible due to ischemic hepatitis due to hypotension or infectious viral hepatitis: Admission CMP with T. bili 0.70, AST/LT 185/49, alk phos 76, last AST 01/31/2023 noted to be normal at 20. Monitor liver chemistry 05/09: Liver chemistry better. ALT 11 AST 83. 6. Lactic acidosis: Admission lactic acid 4.5, suspect multifactorial with rhabdomyolysis as well as acute kidney injury with respiratory failure, continue slow IV 7. CAD: Status post PCI x 6, continue aspirin, statin, per current list not on beta-nevaeh therapy however given hypotension this will be deferred. 8. 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 ED initiated TSH 0.27 however free T41.07, subclinical. #9. Chronic iron deficiency anemia: Admission hemoglobin 13.7, MCV 94, baseline hemoglobin recently 13-14, stable, continue iron supplementation and CBC trending. 05/10: Hemoglobin 9.2. #10. Parkinson's disease: We will continue patient home Sinemet regimen, complicates presentation, maintain on fall and aspiration precautions, PT/OT/case management consulted for discharge planning. #11. Anxiety and depression: continue patient home escitalopram regimen. #12. Hyperlipidemia: continue patient home statin therapy; however, if LFT rises 3x ULN will hold. #13. History ICH: Unclear history of event, current CT of the head with no acute intracranial findings as noted. #14. BPH: Per current list not on regimen, clarifying we will add if appropriate. #15. BENITA: Clarifying if patient uses CPAP nightly. DVT: heparin. Charges/Coding Visit Charges Inpatient E&M: 18404 Subs Hosp L2
[2023-05-16] MEDS: Carbidopa/Levodopa 25/100 Tablet PO ×2 (14:19→20:39)
[2023-05-17 03:00] VITALS: BP 137/68; PULSE 56; RESP 16; TEMP 36.6; O2SAT 98
[2023-05-17] MEDS: Dextrose 5%-Water (1000mL Bag) 1,000 ML 100 ML IV (04:59)
[2023-05-17] MEDS: Carbidopa/Levodopa 25/100 Tablet PO ×3 (05:00→20:24)
[2023-05-17] MEDS: Menthol/Lanolin/Calamine/Znox 113 GM Tube 1 APPLIC TOPICAL ×3 (05:00→20:23)
[2023-05-17] MEDS: Levothyroxine 125 MCG Tablet PO (05:01)
[2023-05-17 05:18] VITALS: BMI 26.5
[2023-05-17 06:40] LABS: Anion Gap 6 (5-15); BUN 50 mg/dL (7-18); BUN/Creat Ratio 11.2 RATIO (10-20); Calcium,Total 7.8 mg/dL (8.5-10.1); Chloride 114 mmol/L (98-107); Creatinine, Serum 4.48 mg/dL (0.70-1.30); EST Glomerular Filtration Rate 14 mL/min (>60); Est Glom Filt Rate - Afr Amer 16 mL/min (>60); Estimated Creatinine Clearance 12.93 ml/min; Glucose 144 mg/dL (74-106); Potassium 3.3 mmol/L (3.5-5.1); Sodium Level 144 mmol/L (136-145)
[2023-05-17 07:28] VITALS: PULSE 70; RESP 18; O2SAT 93
[2023-05-17] MEDS: Budesonide Respules 0.5 MG/2 ML AMPUL.NEB. INHALATION (07:28)
[2023-05-17 09:00] VITALS: BP 102/53; PULSE 51; RESP 16; TEMP 36.4; O2SAT 94
[2023-05-17] MEDS: Hydrocortisone 10 MG Tablet PO ×2 (09:32→20:25)
[2023-05-17] MEDS: Fluconazole 100 MG Tablet PO (09:32)
[2023-05-17] MEDS: Escitalopram Oxalate 10 MG Tablet PO (09:32)
[2023-05-17] MEDS: Pantoprazole Sodium 40 MG Tablet PO ×2 (09:32→20:25)
[2023-05-17] MEDS: Heparin Injection (Vial) 5,000 UNIT/ML VIAL 5000 UNIT SC ×2 (09:32→20:24)
[2023-05-17] MEDS: Aspirin E.C. 81 MG Tablet PO (09:32)
[2023-05-17] MEDS: NYSTATIN 500,000 UNIT/5 ML UDC 500000 UNIT PO ×4 (09:33→20:24)
[2023-05-17] MEDS: Potassium Chloride Oral Tablet 20 MEQ 40 MEQ PO (10:04)
--- NOTE | 2023-05-17 11:11 | SP.MBSS_ITS ---
Modified Barium Swallow Patient Information Study Date: 05/17/23 Study Time: 10:00 Direct Billable Minutes: 119 Total Minutes procedure & reportin Diagnosis: Parkinson's disease (G20), GERD (K21.9) Referring Physician: Omer Drummond Reason for Referral: Objectively assess swallow function, assess risk for aspiration, and determine recommendations for least restrictive diet textures and compensatory strategies to improve safety of swallow. 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 He presented to [facility] ED on 05/05/23 with history of mechanical fall of unclear timeline found on the floor prompting EMS call with saturations noted to be initially 64% on room air with blood pressure 66/37 with patient arousable. He was placed on a nonrebreather with transition to the ED for evaluation. CT of the brain with chronic involutional changes with pansinusitis, CT cervical spine with multilevel degenerative changes, chest x- ray with no acute cardiopulmonary findings. He was admitted to the hospital and managed for COVID-19 PNA, hypoxemia, and shock amongst other problems. He was referred for speech therapy consult to assess swallow function. He was initially placed on puree textures / thin liquids with downgrade to puree textures / nectar thick liquids. EVENT PROMOTIONS COORDINATOR made the patient NPO at bedside 05/10/2023 due to poor diet tolerance and recommended the patient participate in MBSS to objectively assess swallow function and aspiration risk. Per family, the patient has had s wallowing difficulty since 2019 when he had surgery on his pituitary gland. First MBSS completed on 05/11/2023 and the patient was recommended for Moist purees / thin liquids with STRICT aspiration precautions, 1:1 Direct supervision, and GI consult. EGD followed study and the patient was dilated. 05/15/23 the patient did not appear to be tolerating diet well and had decline in respiratory status, RN made pt NPO. EVENT PROMOTIONS COORDINATOR reassessed at bedside with downgrade to puree / honey/moderately thick liquids and plans for MBSS today to reassess swallow function and aspiration risk. Current Diet Ordered: Moist purees / Honey thick liquids Dentition: Natural Teeth and Decay Mental Status: Impaired (memory impairment per PMH) Respiratory Status: Oxygenating on Room Air Penetration-Aspiration Scale Penetration-Aspiration Scale: OBJECTIVE ASSESSMENT OF SWALLOW FUNCTION (QUANTITATIVE ? PER TRIAL): PENETRATION / ASPIRATION SCALE (MILLS): 1 = does not enter airway 2 = enters airway/above vocal folds/ejected 3 = enters airway/above vocal folds/not ejected 4 = enters airway/contacts vocal folds/ejected 5 = enters airway/contacts vocal folds/not ejected 6 = enters airway/below vocal folds/ejected 7 = enters airway/below vocal folds/not ejected despite effort 8 = enters airway/below vocal folds/no effort VIDEOFLOROSCOPIC SCALE SCORE (MILLS): Grade I = aspiration of material that has penetrated into the laryngeal vestibule, intact cough reflex Grade II = aspiration < 10 % of the bolus, intact cough reflex Grade III = aspiration of < 10 % of the bolus, reduced cough reflex or aspiration of > 10 % of the bolus, intact cough reflex Grade IV = aspiration of > 10 % of the bolus, reduced cough reflex Penetration-Aspiration Scale Score Honey Thick Liquid via teaspoon: Result: 1= does not enter airway (Independent double swallow) Pudding via teaspoon: Result: 1= does not enter airway (Independent double swallow) Honey Thick Liquid via single sip from cup: Result: 2= enter airway/above vocal folds/ejected (Independent double swa llow) [place] Thick Liquid via teaspoon: Result: 7= enters airways/below vocal folds/not ejected despite effort (trace aspiration with delayed reflexive cough which mostly cleared contrast from vocal folds and laryngeal vestibule) Thin Liquid via teaspoon Chin tuck: Result: 2= enter airway/above vocal folds/ejected Thin Liquid via small single sip from cup with Chin Tuck: Result: 2= enter airway/above vocal folds/ejected Honey Thick Liquid via small single sip from cup: Result: 2= enter airway/above vocal folds/ejected (Cued double swallow) Pudding via teaspoon Trial 2: Result: 3= enters airways/above vocal folds/not ejected (trace contrast remaining in laryngeal vestibule after cued double swallow) Oral Phase Labial Seal: Interlabial escape, no progression to anterior lip Tongue Control During Bolus Hold: Posterior escape of greater than half of bolus Bolus Transport/Lingual Motion: Repetitive/disorganized tongue motion Oral Residue: Residue collection on oral structures Pharyngeal Phase Initiation of Pharyngeal Swallow: Bolus head in pyriforms Soft Palate Elevation: No bolus between soft palate and pharyngeal wall Laryngeal Elevation: Partial superior movement thyroid cart/partial apprx aryt- epig petiole Anterior Hyoid Excursion: Partial anterior movement Epiglottic Movement: No inversion (little to no inversion) Laryngeal Vestibule Closure at Height of Swallow: Incomplete; narrow column of air/contrast in laryngeal vestibule Pharyngeal Stripping Wave: Present - diminished Pharyngoesophageal Segment Opening: Parital distension and partial duration; parital obstruction of flow Tongue Base Retraction: Wide column of contrast between tongue base & post. pharyngeal wall Pharyngeal Residue: Collection of residue within or on pharyngeal structures (~40-50% of honey thick and pudding thick after the first swallow, improved clearance with second swallow) Diagnosis/Impression Diagnosis: Moderate-severe oropharyngeal phase dysphagia (R13.12) Impression: The oral phase is primarily marked by... -Slow lingual pumping for A-P transport. -Mild-moderate oral residue after the swallow, which the patient independently cleared with use of second swallow as needed. -Did not test cookie due to choking concerns with remaining deficits in pharyngeal clearance. The pharyngeal phase is primarily marked by... -Decreased airway closure due to decreased anterior hyoid excursion and laryngeal elevation; however, airway closure was improved from previous MBSS evidenced by decreased laryngeal penetration and aspiration. -Mild-moderate pharyngeal residues after double swallow due to decreased pharyngeal contraction, tongue base retraction, and UES opening/duration; however, patient demonstrated notably improved pharyngeal clearance of honey thick and pudding thick textures as compared to previous MBSS. -Trace aspiration of nectar thick liquids via tsp with delayed reflexive cough. Trace laryngeal penetration without full ejection of pudding via tsp. Recommendations Diet: Puree Textures and Thin Liquids Comment: Moist purees, meds crushed in applesauce, stop meal if fatiguing and/or increased s/s of aspiration Compensatory Strategies: Small Bites, Small Sips, Slow Rate, Multiple Swallows (double swallows on each bite/sip), Alternate bites/solids and sips/liquids, Sitting upright and Remain sitting upright for 30 minutes after PO intake Supervision: 1:1 Close Supervision Recommend Repeat Modified Barium Swallow: Yes Comment: 2-4 weeks after implementation of oropharyngeal exercise program Need for Skilled Speech Therapy Services: Yes Comment: Continued monitoring of diet tolerance and respiratory status. Continued training of staff, patient, and family in recommended diet textures and aspiration precautions. Implementation of oropharyngeal exercise program, to include lingual coord ination exercises, effortful swallows, Allyssa, and CTAR. Trials of thin liquids with use of chin tuck and double swallow with EVENT PROMOTIONS COORDINATOR only. Consider diet advancement if improved ability to utilize strategy effectively at bedside. At next level of care, consider implementation of supervised FFWP with use of chin tuck and double swallow if stable pulmonary status. Education Completed: 1. Described result of evaluation., 2. Pt understands evaluation & agrees with goals and treatment plan. and 7. Pt requires further education on strategies & risks. Status Active ST Patient: Active Contact Information [facility] Speech Therapy:: Anuradha Richards M.A. [facility]-EVENT PROMOTIONS COORDINATOR Speech-Language Pathologist [facility] [address] [place] [address] [email or web address] [phone]
[2023-05-17] MEDS: Dext 5%-0.45% NS 1,000 ML 75 ML IV ×2 (11:31→23:27)
[2023-05-17 14:26] VITALS: BP 134/61; PULSE 59; RESP 18; TEMP 36.7; O2SAT 96
--- NOTE | 2023-05-17 17:12 | PCM.PN.HOSP ---
Reason for Visit Reason for Visit: Diagnoses Acute kidney failure, unspecified (05/05/23) Other dysphagia (05/05/23) Shock, unspecified (05/05/23) COVID-19 (05/05/23) Subjective Subjective Patient was seen and examined today, I had a discussion with his daughter who was in the room at the time my examination. Patient's creatinine is improved slightly today, I change his IV fluids to D5 half-normal saline, speech therapy has maintained the patient on a pur?ed nectar thickened liquid diet. I am not sure the patient is able to take in enough fluids, he will be monitored. Patient is currently on room air at this time. Objective Data Objective Data Vital Signs: Vital Signs Temp Pulse Resp BP Pulse Ox O2 Del Method O2 Flow Rate 98.1 F 59 L 18 134/61 H 96 Room Air 1 05/17/23 14:26 05/17/23 14:26 05/17/23 14:26 05/17/23 14:26 05/17/23 14:26 05/17/23 14:27 05/16/23 14:31 FiO2 50 05/10/23 01:00 Oxygen Flow Rate (L/min) 1 Oxygen Delivery Method Room Air Weight: 81.5 kg Body Mass Index (BMI) 26.5 Intake & Output: Intake and Output for Last 24 Hours 05/15/23 05/16/23 05/17/23 23:59 23:59 23:59 Intake Total 1563.34 / 1563.34 1104 / 1344 2440 / 2440 Output Total 870 / 1070 1675 / 1675 1500 / 1500 Balance 693.34 / 493.34 -571 / -331 940 / 940 Lab / Micro Data 05/16/23 07:24 05/17/23 05:29 Labs: Laboratory Results - last 24 hr 05/17/23 05:29: Sodium 144, Potassium 3.3 L, Chloride 114 H, Carbon Dioxide 24.0, Anion Gap 6, BUN 50 H, Creatinine 4.48 H, Estim Creat Clear Calc 12.93, Est GFR (MDRD) Af Amer 16 L, Est GFR (MDRD) Non-Af 14 L, BUN/Creatinine Ratio 11.2, Glucose 144 H, Calcium 7.8 L Micro: Microbiology 05/16/23 14:10 Stool C. difficile DNA Amplification - Final 05/08/23 15:15 Urine Catheter - Thompson Urine Culture - Final Culture exhibits no growth. 05/05/23 13:15 Blood Culture (Wb) - Anticubital Left Blood Culture - Final No growth in 5 days. 05/05/23 12:47 Blood Culture (Wb) - Anticubital Right Blood Culture - Final No growth in 5 days. 05/05/23 12:47 Urine, Catheterized Urine Culture - Final Enterococcus faecalis 05/05/23 17:50 Stool C. difficile DNA Amplification - Final 05/05/23 21:15 Stool Enteric Bacteriology - Final 05/05/23 17:50 Mucosa - Nasopharyngeal Coronavirus COVID-19 PCR - Final SARS-CoV-2 (COVID 19) 05/05/23 17:50 Mucosa - Nasopharyngeal Respiratory Panel (PCR) - Final 05/05/23 18:11 Urine Catheter - Catheter Legionella Antigen - Final 05/05/23 18:11 Urine Catheter - Catheter Streptococcus pneumoniae Antigen (M - Final Physical Exam Const alert and no apparent distress General Appearance: cooperative, well kempt and well developed Orientation / Consciousness: awake and oriented to person HEENT normocephalic and head/scalp atraumatic Mouth: dry mucous membranes Eyes PERRL, EOMs intact bilaterally and conjunctivae normal Neck supple, no JVD, thyroid normal and no carotid bruits General: trachea midline Resp normal respiratory effort, no retractions, no use of accessory muscles and clear to auscultation bilaterally Auscultation: Negative for rales, rhonchi or wheezes Cardio regular rate, regular rhythm, S1 normal heart sound, S2 normal heart sound, no murmurs, no rub and no gallops GI normal to inspection, nondistended, normoactive bowel sounds, soft to palpation, non-tender and non-distended Extremity no clubbing, cyanosis or edema Skin no rashes or lesions noted General Skin Exam: no breakdown Neuro CN's II-XII intact bilaterally, no focal motor deficits and no sensory deficits noted Sensorium / Orientation: awake, alert and oriented to person Speech: speech normal Psych Psych Narrative: Exhibits some mild confusion Assessment & Plan Assessment/Plan (1) COVID-19: PLAN: Plan 1. Acute metabolic encephalopathy- on a backdrop of documented cognitive impairment-likely secondary to COVID-19 infection with acute kidney injury/ATN-continue supportive care including IV fluid administration, PT and OT are seeing the patient, he will need placement in a senior care facility for short-term rehab services. #2 acute kidney injury on a backdrop of chronic kidney disease stage IIIb-likely secondary to ATN, nephrology is participating in his care, continue IV fluid administration #3 COVID-19 infection-patient has completed a course of corticosteroids, he is chronically on Solu-Cortef due to adrenal insufficiency, patient is currently on room air #4 coronary artery disease-complicates care, medical course, recovery, and prognosis #5 chronic adrenal insufficiency-patient will remain on Solu-Cortef #6 acute anemia-etiology unclear at this point, obtain iron level, TIBC #7 gastric ulcer-patient underwent an EGD on 05/14/2023 with a gastric ulcer detected and treated with a heater probe, continue current medication-Protonix #8 esophageal candidiasis-patient remains on Diflucan and oral nystatin #9 hypothyroidism-patient remains on Synthroid at this time #10 Parkinson's disease-patient on Sinemet #11 [id number] has coronary artery disease, this appears to be stable at this time, complicates care, medical course, recovery, and prognosis #12 moderate-severe oropharyngeal phase dysphagia-patient is on a modified diet at this time, he is being followed by speech therapy Patient's Unasyn was stopped, I do not feel the patient needs this medication. Patient's CBC will be repeated tomorrow Total clinical time spent by myself addressing the patient's medical issues, reviewing all of his data, and collaborating with patient's care team: 50 minutes Charges/Coding Visit Charges Inpatient E&M: 05294 Subs Hosp L3
[2023-05-17 20:30] VITALS: BP 116/65; PULSE 61; RESP 16; TEMP 36.3; O2SAT 97
[2023-05-18] MEDS: Levothyroxine 125 MCG Tablet PO ×2 (05:27)
[2023-05-18] MEDS: Carbidopa/Levodopa 25/100 Tablet PO ×3 (05:27→20:03)
[2023-05-18] MEDS: Menthol/Lanolin/Calamine/Znox 113 GM Tube 1 APPLIC TOPICAL ×3 (05:28→20:02)
[2023-05-18 05:57] VITALS: BMI 27.3
[2023-05-18 06:26] LABS: Absolute Lymphocyte Count 1.04 X10^3/uL (0.83-4.51); Absolute Neutrophil Count 5.5 X10^3/uL (2.0-7.7); Basophil# 0.03 X10^3/uL; Basophil% 0.4 % (0-1); Eosinophils% 5.3 % (0-5); Hematocrit 25.6 % (40-54); Lymphocyte # 1.04 X10^3/ul (0.83-4.51); Lymphocyte % 13.8 % (19-41); Mean Corp Hgb Conc 31.3 g/dL (32-36); Mean Corpuscular Hgb 30.5 pg (27.0-32.0); Mean Corpuscular Volume 97.7 fL (80-94); Monocyte# 0.37 X10^3/uL; Monocyte% 4.9 % (0-10); NRBC Flagged by Analyzer 0 % (0-5); Neutrophil # 5.54 X10^3/uL (2.7-7.7); Neutrophil % 73.3 % (47-70); Platelet Count 321 K/mm3 (150-450); RBC Distribution Width CV 14.7 % (11.6-14.6); RBC Distribution Width SD 51.8 fl (35.1-43.9); Red Blood Count 2.62 M/mm3 (4.6-6.2); White Blood Count 7.6 K/mm3 (4.4-11.0)
[2023-05-18 07:11] LABS: Anion Gap 7 (5-15); BUN 41 mg/dL (7-18); BUN/Creat Ratio 10.2 RATIO (10-20); Calcium,Total 7.9 mg/dL (8.5-10.1); Chloride 118 mmol/L (98-107); Creatinine, Serum 4.02 mg/dL (0.70-1.30); EST Glomerular Filtration Rate 15 mL/min (>60); Est Glom Filt Rate - Afr Amer 19 mL/min (>60); Estimated Creatinine Clearance 14.41 ml/min; Glucose 114 mg/dL (74-106); Potassium 3.6 mmol/L (3.5-5.1); Sodium Level 146 mmol/L (136-145)
[2023-05-18 08:49] VITALS: BP 122/70; PULSE 60; RESP 16; TEMP 36.8; O2SAT 92
[2023-05-18 09:08] VITALS: O2SAT 94
[2023-05-18] MEDS: Heparin Injection (Vial) 5,000 UNIT/ML VIAL 5000 UNIT SC ×2 (10:11→20:02)
[2023-05-18] MEDS: Aspirin E.C. 81 MG Tablet PO (10:12)
[2023-05-18] MEDS: Pantoprazole Sodium 40 MG Tablet PO ×2 (10:12→20:03)
[2023-05-18] MEDS: Fluconazole 100 MG Tablet PO (10:12)
[2023-05-18] MEDS: NYSTATIN 500,000 UNIT/5 ML UDC 500000 UNIT PO ×4 (10:12→20:05)
[2023-05-18] MEDS: Hydrocortisone 10 MG Tablet PO ×2 (10:12→20:05)
[2023-05-18] MEDS: Escitalopram Oxalate 10 MG Tablet PO (10:12)
[2023-05-18] MEDS: 0.9 % NaCl (Sterile) Posiflush 10 mL IV (12:53)
--- NOTE | 2023-05-18 13:12 | CASEMGMT ---
Discharge Planning Updates sent to [facility] via [employer]. Asked that new precert be started. Elle Stevens, Discharge Planning Asst.
[2023-05-18] MEDS: Dext 5%-0.45% NS 1,000 ML 75 ML IV (13:38)
[2023-05-18 14:50] VITALS: BP 136/70; PULSE 60; RESP 16; TEMP 36.7; O2SAT 93
--- NOTE | 2023-05-18 16:24 | CASEMGMT ---
Discharge Planning [facility] has obtained auth. SW updated. Elle Stevens, Discharge Planning Asst.
--- NOTE | 2023-05-18 18:15 | PN.HOSP_ITS ---
Reason for Visit Reason for Visit: Diagnoses Acute kidney failure, unspecified (05/05/23) Other dysphagia (05/05/23) Shock, unspecified (05/05/23) COVID-19 (05/05/23) Subjective Subjective Patient was seen and examined today, his hemoglobin remained stable at this time, his creatinine is improved slightly, sodium is bumped up slightly however. We have not received approval for the patient to go to an extended care facility at this time. Patient's white blood cell count remains normal, he is on room air at this time. I talked with his daughter who was present at the time of my examination today. Objective Data Objective Data Vital Signs: Vital Signs Temp Pulse Resp BP Pulse Ox O2 Del Method O2 Flow Rate 98.1 F 60 16 136/70 H 93 Room Air 1 05/18/23 14:50 05/18/23 14:50 05/18/23 14:50 05/18/23 14:50 05/18/23 14:50 05/18/23 14:50 05/16/23 14:31 FiO2 50 05/10/23 01:00 Oxygen Flow Rate (L/min) 1 Oxygen Delivery Method Room Air Weight: 84 kg Body Mass Index (BMI) 27.3 Intake & Output: Intake and Output for Last 24 Hours 05/16/23 05/17/23 05/18/23 23:59 23:59 23:59 Intake Total 1104 / 1344 3335 / 3335 1140.00 / 1140.00 Output Total 1675 / 1675 2250 / 2250 600 / 600 Balance -571 / -331 1085 / 1085 540.00 / 540.00 Lab / Micro Data 05/18/23 06:08 05/18/23 06:08 Labs: Laboratory Results - last 24 hr 05/18/23 06:08: WBC 7.6, RBC 2.62 L, Hgb 8.0 L, Hct 25.6 L, MCV 97.7 H, MCH 30.5, MCHC 31.3 L, RDW Std Deviation 51.8 H, RDW Coeff of Delisa 14.7 H, Plt Count 321, MPV 10.0, Immature Gran % (Auto) 2.300 H, Neut % (Auto) 73.3 H, Lymph % (Auto) 13.8 L, [place] % (Auto) 4.9, Eos % (Auto) 5.3 H, Baso % (Auto) 0.4, Absolute Neuts (auto) 5.5, Absolute Lymphs (auto) 1.04, Nucleated RBC % 0, Sodium 146 H, Potassium 3.6, Chloride 118 H, Carbon Dioxide 21.0, Anion Gap 7, BUN 41 H, Creatinine 4.02 H, Estim Creat Clear Calc 14.41, Est GFR (MDRD) Af Lalitha r 19 L, Est GFR (MDRD) Non-Af 15 L, BUN/Creatinine Ratio 10.2, Glucose 114 H, Calcium 7.9 L Micro: Microbiology 05/16/23 14:10 Stool C. difficile DNA Amplification - Final 05/08/23 15:15 Urine Catheter - Thompson Urine Culture - Final Culture exhibits no growth. 05/05/23 13:15 Blood Culture (Wb) - Anticubital Left Blood Culture - Final No growth in 5 days. 05/05/23 12:47 Blood Culture (Wb) - Anticubital Right Blood Culture - Final No growth in 5 days. 05/05/23 12:47 Urine, Catheterized Urine Culture - Final Enterococcus faecalis 05/05/23 17:50 Stool C. difficile DNA Amplification - Final 05/05/23 21:15 Stool Enteric Bacteriology - Final 05/05/23 17:50 Mucosa - Nasopharyngeal Coronavirus COVID-19 PCR - Final SARS-CoV-2 (COVID 19) 05/05/23 17:50 Mucosa - Nasopharyngeal Respiratory Panel (PCR) - Final 05/05/23 18:11 Urine Catheter - Catheter Legionella Antigen - Final 05/05/23 18:11 Urine Catheter - Catheter Streptococcus pneumoniae Antigen (M - Final Physical Exam Narrative alert and no apparent distress General Appearance: cooperative, well kempt and well developed Orientation / Consciousness: awake and oriented to person HEENT normocephalic and head/scalp atraumatic Mouth: dry mucous membranes Eyes PERRL, EOMs intact bilaterally and conjunctivae normal Neck supple, no JVD, thyroid normal and no carotid bruits General: trachea midline Resp normal respiratory effort, no retractions, no use of accessory muscles and clear to auscultation bilaterally Auscultation: Negative for rales, rhonchi or wheezes Cardio regular rate, regular rhythm, S1 normal heart sound, S2 normal heart sound, no murmurs, no rub and no gallops GI normal to inspection, nondistended, normoactive bowel sounds, soft to palpation, non-tender and non-distended Extremity no clubbing, cyanosis or edema Skin no rashes or lesions noted General Skin Exam: no breakdown Neuro CN's II-XII intact bilaterally, no focal motor deficits and no sensory deficits noted Sensorium / Orientation: awake, alert and oriented to person Speech: speech normal Psych Psych Narrative: Exhibits some mild confusion Assessment & Plan Assessment/Plan (1) GERTRUDE (acute kidney injury): (2) COVID-19: PLAN: Plan 1. Acute metabolic encephalopathy- on a backdrop of documented cognitive impairment-likely secondary to COVID-19 infection with acute kidney injury/ATN- continue supportive care including IV fluid administration, PT and OT are seeing the patient, he will need placement in a residential facility for short-term rehab services, we are awaiting approval from the patient's insurance carrier. #2 acute kidney injury on a backdrop of chronic kidney disease stage IIIb-likely secondary to ATN, nephrology is participating in his care, continue IV fluid administration, BMP will be repeated tomorrow #3 COVID-19 infection-patient has completed a course of corticosteroids, he is chronically on Solu-Cortef due to adrenal insufficiency, patient is currently on room air #4 coronary artery disease-complicates care, medical course, recovery, and prognosis #5 chronic adrenal insufficiency-patient will remain on Solu-Cortef #6 acute anemia-etiology unclear at this point, obtain iron level, TIBC #7 gastric ulcer-patient underwent an EGD on 05/14/2023 with a gastric ulcer detected and treated with a heater probe, continue current medication-Protonix #8 esophageal candidiasis-patient remains on Diflucan and oral nystatin #9 hypothyroidism-patient remains on Synthroid at this time #10 Parkinson's disease-patient on Sinemet #11 [id number] has coronary artery disease, this appears to be stable at this time, complicates care, medical course, recovery, and prognosis #12 moderate-severe oropharyngeal phase dysphagia-patient is on a modified diet at this time, he is being followed by speech therapy Total clinical time spent by myself addressing the patient's medical issues, reviewing all of his data, and collaborating with patient's care team: 35 minutes Charges/Coding Visit Charges Inpatient E&M: 70452 Subs Hosp L2
[2023-05-18 21:28] VITALS: BP 154/71; PULSE 57; RESP 16; TEMP 36.3; O2SAT 95
--- NOTE | 2023-05-18 21:43 | PCM.PN.REN ---
Subjective Subjective no new events Objective Data Objective Data Vital Signs: Vital Signs Temp Pulse Resp BP Pulse Ox O2 Del Method O2 Flow Rate 97.3 F L 57 L 16 154/71 H 95 Room Air 1 05/18/23 21:28 05/18/23 21:28 05/18/23 21:28 05/18/23 21:28 05/18/23 21:28 05/18/23 21:28 05/16/23 14:31 FiO2 50 05/10/23 01:00 Oxygen Flow Rate (L/min) 1 Oxygen Delivery Method Room Air Weight: 84 kg Body Mass Index (BMI) 27.3 Intake & Output: Intake and Output for Last 24 Hours 05/16/23 05/17/23 05/18/23 23:59 23:59 23:59 Intake Total 1104 / 1344 3335 / 3335 1340.00 / 1340.00 Output Total 1675 / 1675 2250 / 2250 1050 / 1050 Balance -571 / -331 1085 / 1085 290.00 / 290.00 Lab / Micro Data 05/18/23 06:08 05/18/23 06:08 Labs: Laboratory Results - last 24 hr 05/18/23 06:08: WBC 7.6, RBC 2.62 L, Hgb 8.0 L, Hct 25.6 L, MCV 97.7 H, MCH 30.5, MCHC 31.3 L, RDW Std Deviation 51.8 H, RDW Coeff of Delisa 14.7 H, Plt Count 321, MPV 10.0, Immature Gran % (Auto) 2.300 H, Neut % (Auto) 73.3 H, Lymph % (Auto) 13.8 L, [place] % (Auto) 4.9, Eos % (Auto) 5.3 H, Baso % (Auto) 0.4, Absolute Neuts (auto) 5.5, Absolute Lymphs (auto) 1.04, Nucleated RBC % 0, Sodium 146 H, Potassium 3.6, Chloride 118 H, Carbon Dioxide 21.0, Anion Gap 7, BUN 41 H, Creatinine 4.02 H, Estim Creat Clear Calc 14.41, Est GFR (MDRD) Af Amer 19 L, Est GFR (MDRD) Non-Af 15 L, BUN/Creatinine Ratio 10.2, Glucose 114 H, Calcium 7.9 L Micro: Microbiology 05/16/23 14:10 Stool C. difficile DNA Amplification - Final 05/08/23 15:15 Urine Catheter - Thompson Urine Culture - Final Culture exhibits no growth. 05/05/23 13:15 Blood Culture (Wb) - Anticubital Left Blood Culture - Final No growth in 5 days. 05/05/23 12:47 Blood Culture (Wb) - Anticubital Right Blood Culture - Final No growth in 5 days. 05/05/23 12:47 Urine, Catheterized Urine Culture - Final Enterococcus faecalis 05/05/23 17:50 Stool C. difficile DNA Amplification - Final 05/05/23 21:15 Stool Enteric Bacteriology - Final 05/05/23 17:50 Mucosa - Nasopharyngeal Coronavirus COVID-19 PCR - Final SARS-CoV-2 (COVID 19) 05/05/23 17:50 Mucosa - Nasopharyngeal Respiratory Panel (PCR) - Final 05/05/23 18:11 Urine Catheter - Catheter Legionella Antigen - Final 05/05/23 18:11 Urine Catheter - Catheter Streptococcus pneumoniae Antigen (M - Final Physical Exam Narrative Alert and oriented, no apparent distress S1, S2, RRR Diminished breath sounds, no rhonchi or rales Abdomen soft, nontender No pitting edema Assessment & Plan Assessment/Plan (1) GERTRUDE (acute kidney injury): PLAN: Baseline creatinine appears to be around 1.6 or so. Came in with a creatinine of 5.39, cr trending down hypernatremia. D5.45 today
[2023-05-19 03:00] VITALS: BP 146/71; PULSE 57; RESP 16; TEMP 36.3; O2SAT 95
[2023-05-19] MEDS: Dext 5%-0.45% NS 1,000 ML 75 ML IV (03:10)
[2023-05-19] MEDS: Levothyroxine 125 MCG Tablet PO (04:21)
[2023-05-19] MEDS: Carbidopa/Levodopa 25/100 Tablet PO (04:21)
[2023-05-19] MEDS: Menthol/Lanolin/Calamine/Znox 113 GM Tube 1 APPLIC TOPICAL (04:23)
[2023-05-19 04:31] VITALS: BMI 26.7
[2023-05-19 07:13] VITALS: O2SAT 96
[2023-05-19 07:29] LABS: Anion Gap 7 (5-15); BUN 33 mg/dL (7-18); BUN/Creat Ratio 8.7 RATIO (10-20); Calcium,Total 7.9 mg/dL (8.5-10.1); Chloride 118 mmol/L (98-107); Creatinine, Serum 3.79 mg/dL (0.70-1.30); EST Glomerular Filtration Rate 16 mL/min (>60); Est Glom Filt Rate - Afr Amer 20 mL/min (>60); Estimated Creatinine Clearance 15.29 ml/min; Glucose 98 mg/dL (74-106); Potassium 3.4 mmol/L (3.5-5.1); Sodium Level 147 mmol/L (136-145)
[2023-05-19 08:52] VITALS: BP 116/64; PULSE 55; RESP 16; TEMP 36.4; O2SAT 95
[2023-05-19] MEDS: Hydrocortisone 10 MG Tablet PO (09:51)
[2023-05-19] MEDS: NYSTATIN 500,000 UNIT/5 ML UDC 500000 UNIT PO (09:51)
[2023-05-19] MEDS: Aspirin E.C. 81 MG Tablet PO (09:51)
[2023-05-19] MEDS: Escitalopram Oxalate 10 MG Tablet PO (09:51)
[2023-05-19] MEDS: Fluconazole 100 MG Tablet PO (09:51)
[2023-05-19] MEDS: Heparin Injection (Vial) 5,000 UNIT/ML VIAL 5000 UNIT SC (09:51)
[2023-05-19] MEDS: Pantoprazole Sodium 40 MG Tablet PO (09:52)
--- NOTE | 2023-05-19 11:00 | PCM.TXEXTCAR ---
Diet Diet Order/Speech Therapy: 05/16/23 10:51 Diet: Regular - General Food consistency:: Pureed Liquid Consistency:: Honey/Moderately Thick Dietary Modifications:: No Added Salt Type of Dietary Supplement:: Fortified Pudding w/L &D Is pt able to select menu?: No Diet Comments: MOIST purees,1:1 Sup, DISCONT DIET IF WORSENING LUNG SOUNDS, Double swallow Routine Orders/Code Status Routine Lab Work: BMP (on 05/21/23) Code Status: DNRCC-A (no intubation) Wound(s) Bilateral elbows: Wound Type: scabs Right AC: Wound Type: Skin Tear coccyx: Wound Type: Pressure Injury RT LAT ANKLE: Wound Type: Abrasion Therapies Weight Bearing: Full weight bearing and Weight bearing as tolerated Physical Therapy: Eval and Treat Occupational Therapy: Eval and Treat Speech Therapy: Eval and Treat Problem/Diagnosis (1) GERTRUDE (acute kidney injury): Status: Acute Code(s): N17.9 - Acute kidney failure, unspecified Plan 1. Acute metabolic encephalopathy- on a backdrop of documented cognitive impairment-likely secondary to COVID-19 infection with acute kidney injury/ATN-continue supportive care including IV fluid administration, PT and OT are seeing the patient, he will need placement in a fpc facility for short-term rehab services, we are awaiting approval from the patient's insurance carrier. #2 acute kidney injury on a backdrop of chronic kidney disease stage IIIb-likely secondary to ATN, nephrology is participating in his care, continue IV fluid administration, BMP will be repeated tomorrow #3 COVID-19 infection-patient has completed a course of corticosteroids, he is chronically on Solu-Cortef due to adrenal insufficiency, patient is currently on room air #4 coronary artery disease-complicates care, medical course, recovery, and prognosis #5 chronic adrenal insufficiency-patient will remain on Solu-Cortef #6 acute anemia-etiology unclear at this point, obtain iron level, TIBC #7 gastric ulcer-patient underwent an EGD on 05/14/2023 with a gastric ulcer detected and treated with a heater probe, continue current medication-Protonix #8 esophageal candidiasis-patient remains on Diflucan and oral nystatin #9 hypothyroidism-patient remains on Synthroid at this time #10 Parkinson's disease-patient on Sinemet #11 [id number] has coronary artery disease, this appears to be stable at this time, complicates care, medical course, recovery, and prognosis #12 moderate-severe oropharyngeal phase dysphagia-patient is on a modified diet at this time, he is being followed by speech therapy Total clinical time spent by myself addressing the patient's medical issues, reviewing all of his data, and collaborating with patient's care team: 35 minutes Allergies/Procedures Done in Hospital Allergies No Known Allergies Allergy (Verified 01/31/23 14:28) Procedures: 2-D Echocardiogram and - (Carotid duplex) Type of Care/Length of Stay Estimated LOS: Convalescent Care Less Than 30 days Type of Care Needed: Skilled Rehab Potential: Good Prognosis: Good Additional Orders/Day of Discharge H&P will serve as current which was dated: 05/05/23 Day of Discharge: 05/19/23 Dietary and Speech Recommendations Dietitian Recommendations/Changes: Continue regular/no added salt diet with texture/consistency per GOVERNMENT PROGRAM MANAGER. Continue fortified pudding BID w/ lunch and dinner. Discharge Plan Admission Admit Date/Time: 05/05/23 16:00 Primary Reason for Your Visit: Acute kidney injury, COVID-19 infection, metabolic encephalopathy Attending Provider: Omer Drummond Primary Care Provider: Gianluca Trevino Consulting Providers: Dixie Carlos; Ashok Mcbride; Chepe Chang; Ericka Saenz; Maikol Jimenez Instructions Additional Instructions / Restrictions: Continue IV D5W at 75 cc/h for 48 hours, then reevaluate the patient for continued IV therapy needs Discharge Orders/Prescriptions Prescriptions: New fluconazole 100 mg Tablet 100 mg PO DAILY Qty: 0 0RF Rx Instructions: give for 7 days starting 05/20/23 acetaminophen 325 mg Tablet 650 mg PO Q4H PRN PRN (Reason: Fever, pain 1-05/24) Qty: 0 0RF nystatin 100,000 unit/mL Suspension 500,000 unit PO 4X/DAY Qty: 0 0RF Rx Instructions: Give for 7 days then discontinue starting 05/20/2023, swish and swallow pantoprazole 40 mg Tablet,Delayed Release (Dr/Ec) 40 mg PO BID Qty: 0 0RF menthol-zinc oxide [Calmoseptine] 0.44-20.6 % Ointment 1 applic topical TID Qty: 0 0RF Protocol: *Topical Application Instructions APPLICATION INSTRUCTIONS: apply to perirectal area Continued carbidopa-levodopa 25-100 mg tablet 1.5 tab PO TID Patient Comments: TAKE 1 TABLET BY MOUTH THREE TIMES A DAY levothyroxine 125 mcg tablet 125 mcg PO atorvastatin 20 MG tablet 20 mg PO DAILY aspirin 81 MG tablet,delayed release (DR/EC) 81 mg PO DAILY cholecalciferol (vitamin D3) 50 MCG capsule 2,000 unit PO DAILY polysaccharide iron complex 150 MG capsule 150 mg PO DAILYCM Qty: 30 0RF escitalopram oxalate 10 MG tablet 10 mg PO DAILY 0RF hydrocortisone 10 mg tablet See Rx Instructions PO .COMPLEX Qty: 270 8RF Rx Instructions: 2 tab with breakfast, 1 tab with dinner orally; Discontinued tolterodine 4 mg capsule,extended release 24hr 4 mg PO Patient Comments: TAKE 1 CAPSULE BY MOUTH AT BEDTIME acetaminophen 500 MG tablet 1,000 mg PO Q6H PRN PRN (Reason: Pain Score 1-5) 0RF omega 3-pgn-upe-fish oil [Fish Oil] 1,200 (144-216) mg Capsule 1,200 cap PO DAILY Referrals / Follow Up: Gianluca Trevino MD [Primary Care Provider] - Disposition Disposition (needs filled in before D/C Order can be placed): Residential Facility
--- NOTE | 2023-05-19 11:41 | DS.PCM_ITS ---
Providers Date of Admission: 05/05/23 Date of Discharge: 05/19/23 Primary Care Physician: Dr. Gianluca Trevino MD Consultations 05/05/23 17:24 Consult: Eye Care Professional / Pulmonary Medicine Routine Consulting Provider: Chepe Chang Reason for Consult: Shock, NSTEMI, GERTRUDE, Rhabdo EMERGENT Consult: No MD Notified: Yes Date Notified: 05/05/23 Time Notified: 16:14 Method of Notification: Text 05/08/23 13:35 Consult: Nephrology Routine Consulting Provider: Ericka Saenz Reason for Consult: gertrude, rhabdomyolysis EMERGENT Consult: No MD Notified: Yes Date Notified: 05/08/23 Time Notified: 13:35 Method of Notification: Text 05/13/23 10:39 Consult: Gastroenterology Routine Consulting Provider: [facility] Reason for Consult: tight upper esophagus eval for dilation EMERGENT Consult: No Notified: No Date Notified: 05/13/23 Time Notified: 10:39 05/13/23 10:52 Consult: Gastroenterology Routine Consulting Provider: [facility] Reason for Consult: tight upper esophagus eval for dilation EMERGENT Consult: No Notified: Yes Date Notified: 05/13/23 Time Notified: 10:52 Method of Notification: Text Reason For Visit: SIRS,NSTEMI,RHABDO Diagnosis Discharge Diagnosis (1) GERTRUDE (acute kidney injury): Status: Acute Code(s): N17.9 - Acute kidney failure, unspecified Plan 1. Acute metabolic encephalopathy- on a backdrop of documented cognitive impairment-likely secondary to COVID-19 infection with acute kidney injury/ATN- continue supportive care including IV fluid administration, PT and OT are seeing the patient, he will need placement in a custodial facility for short-term rehab services, we are awaiting approval from the patient's insurance carrier. #2 acute kidney injury on a backdrop of chronic kidney disease stage IIIb-likely secondary to ATN, nephrology is participating in his care, continue IV fluid administration, BMP will be repeated tomorrow #3 COVID-19 infection-patient has completed a course of corticosteroids, he is chronically on Solu-Cortef due to adrenal insufficiency, patient is currently on room air #4 coronary artery disease-complicates care, medical course, recovery, and prognosis #5 chronic adrenal insufficiency-patient will remain on Solu-Cortef #6 acute anemia-etiology unclear at this point, obtain iron level, TIBC #7 gastric ulcer-patient underwent an EGD on 05/14/2023 with a gastric ulcer detected and treated with a heater probe, continue current medication-Protonix #8 esophageal candidiasis-patient remains on Diflucan and oral nystatin #9 hypothyroidism-patient remains on Synthroid at this time #10 Parkinson's disease-patient on Sinemet #11 scu-KNOPY-gpjrreh has coronary artery disease, this appears to be stable at this time, complicates care, medical course, recovery, and prognosis #12 moderate-severe oropharyngeal phase dysphagia-patient is on a modified diet at this time, he is being followed by speech therapy Total clinical time spent by myself addressing the patient's medical issues, reviewing all of his data, and collaborating with patient's care team: 35 minutes Medications at Discharge Home Medications atorvastatin 20 mg tablet 20 mg PO DAILY cholesterol 12/25/19 aspirin 81 mg tablet,delayed release 81 mg PO DAILY Heart health 01/16/20 carbidopa 25 mg-levodopa 100 mg tablet 1.5 tab PO TID Parkinson disease 07/24/20 cholecalciferol (vitamin D3) 50 mcg (2,000 unit) capsule 2,000 unit PO DAILY Supplement 09/08/20 escitalopram oxalate 10 mg tablet 10 mg PO DAILY 09/25/20 polysaccharide iron complex 150 mg iron capsule 150 mg PO DAILYCM #30 caps 09/25/20 levothyroxine 125 mcg tablet 125 mcg PO 06/08/22 hydrocortisone 10 mg tablet See Rx Instructions PO .COMPLEX ADRENAL #270 tabs 11/18/22 acetaminophen 325 mg tablet 650 mg (2 x 325 mg) PO Q4H PRN PRN Fever, pain 1- 05/24 #0 tabs 05/19/23 fluconazole 100 mg tablet 100 mg PO DAILY #0 tabs 05/19/23 menthol 0.44 %-zinc oxide 20.6 % topical ointment (Calmoseptine) 1 applic topical TID #0 grams 05/19/23 nystatin 100,000 unit/mL oral suspension 500,000 unit (5 mL) PO 4X/DAY #0 mL 05/19/23 pantoprazole 40 mg tablet,delayed release 40 mg PO BID #0 tabs 05/19/23 Hospital Course Procedures 2-D Echocardiogram, EGD (With dilation of esophageal stenosis) and - (Carotid duplex scan) Summary of Care Provided Minutes Spent on Discharge: 32 Hospital Course: This 82-year-old white male was seen in the emergency room at [facility] after being brought in after being found down on the floor of his home, patient was noted to have low blood pressure and low pulse ox on room air work- up in the ER included an EKG which showed a normal sinus rhythm there is no evidence of ischemic changes, lactate level was elevated, CBC showed no significant leukocytosis or anemia, an ABG was performed which indicated metabolic acidosis, chest x-ray was obtained and was unremarkable for pulmonary edema pneumonia or acute abnormality. Creatinine was elevated at 5.39. CPK was elevated consistent with rhabdomyolysis, troponin was elevated, urinalysis showed no evidence of urinary tract infection. CT of the patient's head showed no evidence of acute abnormality. Patient's blood pressure continue to be low in the emergency room, central line was placed and patient was given broad- spectrum antibiotics. Patient was admitted to the ICU and required pressor support, he was seen in consultation by pulmonary/critical care, patient was pao ated for acute kidney injury, rhabdomyolysis, and hypotension, patient's COVID- 19 test returned positive, they did not feel the patient needed remdesivir. Patient was seen in consultation by nephrology, patient's pressures stabilized and he was moved out to PCU and was seen by PT and OT and speech therapy. Patient underwent an EGD due to problems with dysphagia, there was found to have esophageal stenosis and this was dilated. It was recommended that the patient go to an extended care facility for short-term rehab services and this was arranged. On 05/19/2023, patient was seen and examined: alert and no apparent distress General Appearance: cooperative, well kempt and well developed Orientation / Consciousness: awake and oriented to person HEENT normocephalic and head/scalp atraumatic Mouth: dry mucous membranes Eyes PERRL, EOMs intact bilaterally and conjunctivae normal Neck supple, no JVD, thyroid normal and no carotid bruits General: trachea midline Resp normal respiratory effort, no retractions, no use of accessory muscles and clear to auscultation bilaterally Auscultation: Negative for rales, rhonchi or wheezes Cardio regular rate, regular rhythm, S1 normal heart sound, S2 normal heart sound, no murmurs, no rub and no gallops GI normal to inspection, nondistended, normoactive bowel sounds, soft to palpation, non-tender and non-distended Extremity no clubbing, cyanosis or edema Skin no rashes or lesions noted General Skin Exam: no breakdown Neuro CN's II-XII intact bilaterally, no focal motor deficits and no sensory deficits noted Sensorium / Orientation: awake, alert and oriented to person Speech: speech normal Psych Psych Narrative: Exhibits some mild confusion Patient was felt to be stable for discharge to an extended care facility on 05/19/2023. Weight / BMI Weight Weight: 82.1 kg Body Mass Index (BMI) 26.7 ABG / Lab / Microbiology Data 05/18/23 06:08 05/19/23 05:26 Laboratory: Laboratory Results - last 24 hr 05/19/23 05:26: Sodium 147 H, Potassium 3.4 L, Chloride 118 H, Carbon Dioxide 22.0, Anion Gap 7, BUN 33 H, Creatinine 3.79 H, Estim Creat Clear Calc 15.29, Est GFR (MDRD) Af Amer 20 L, Est GFR (MDRD) Non-Af 16 L, BUN/Creatinine Ratio 8.7 L, Glucose 98, Calcium 7.9 L Microbiology: Microbiology 05/16/23 14:10 Stool C. difficile DNA Amplification - Final 05/08/23 15:15 Urine Catheter - Thompson Urine Culture - Final Culture exhibits no growth. 05/05/23 13:15 Blood Culture (Wb) - Anticubital Left Blood Culture - Final No growth in 5 days. 05/05/23 12:47 Blood Culture (Wb) - Anticubital Right Blood Culture - Final No growth in 5 days. 05/05/23 12:47 Urine, Catheterized Urine Culture - Final Enterococcus faecalis 05/05/23 17:50 Stool C. difficile DNA Amplification - Final 05/05/23 21:15 Stool Enteric Bacteriology - Final 05/05/23 17:50 Mucosa - Nasopharyngeal Coronavirus COVID-19 PCR - Final SARS-CoV-2 (COVID 19) 05/05/23 17:50 Mucosa - Nasopharyngeal Respiratory Panel (PCR) - Final 05/05/23 18:11 Urine Catheter - Catheter Legionella Antigen - Final 05/05/23 18:11 Urine Catheter - Catheter Streptococcus pneumoniae Antigen (M - Final Meaningful Use Info Meaningful Use Diagnoses (Choose all that apply): None applicable Discharge Plan Admission Admit Date/Time: 05/05/23 16:00 Primary Reason for Your Visit: Acute kidney injury, COVID-19 infection, metabolic encephalopathy Attending Provider: Omer Drummond Primary Care Provider: Gianluca Trevino Consulting Providers: Dixie Carlos; Ashok Mcbride; Chepe Chang; Ericka Saenz; Maikol Jimenez Instructions Additional Instructions / Restrictions: Continue IV D5W at 75 cc/h for 48 hours, then reevaluate the patient for continued IV therapy needs Discharge Orders/Prescriptions Prescriptions: New fluconazole 100 mg Tablet 100 mg PO DAILY Qty: 0 0RF Rx Instructions: give for 7 days starting 05/20/23 acetaminophen 325 mg Tablet 650 mg PO Q4H PRN PRN (Reason: Fever, pain 1-05/24) Qty: 0 0RF nystatin 100,000 unit/mL Suspension 500,000 unit PO 4X/DAY Qty: 0 0RF Rx Instructions: Give for 7 days then discontinue starting 05/20/2023, swish and swallow pantoprazole 40 mg Tablet,Delayed Release (Dr/Ec) 40 mg PO BID Qty: 0 0RF menthol-zinc oxide [Calmoseptine] 0.44-20.6 % Ointment 1 applic topical TID Qty: 0 0RF Protocol: *Topical Application Instructions APPLICATION INSTRUCTIONS: apply to perirectal area Continued carbidopa-levodopa 25-100 mg tablet 1.5 tab PO TID Patient Comments: TAKE 1 TABLET BY MOUTH THREE TIMES A DAY levothyroxine 125 mcg tablet 125 mcg PO atorvastatin 20 MG tablet 20 mg PO DAILY aspirin 81 MG tablet,delayed release (DR/EC) 81 mg PO DAILY cholecalciferol (vitamin D3) 50 MCG capsule 2,000 unit PO DAILY polysaccharide iron complex 150 MG capsule 150 mg PO DAILYCM Qty: 30 0RF escitalopram oxalate 10 MG tablet 10 mg PO DAILY 0RF hydrocortisone 10 mg tablet See Rx Instructions PO .COMPLEX Qty: 270 8RF Rx Instructions: 2 tab with breakfast, 1 tab with dinner orally; Discontinued tolterodine 4 mg capsule,extended release 24hr 4 mg PO Patient Comments: TAKE 1 CAPSULE BY MOUTH AT BEDTIME acetaminophen 500 MG tablet 1,000 mg PO Q6H PRN PRN (Reason: Pain Score 1-5) 0RF omega 1-pbh-why-fish oil [Fish Oil] 1,200 (144-216) mg Capsule 1,200 cap PO DAILY Referrals / Follow Up: Gianluca Trevino MD [Primary Care Provider] - Disposition Disposition (needs filled in before D/C Order can be placed): [facility] Charges/Coding Visit Charges Inpatient E&M: 63819 Disch Hosp >30min
--- NOTE | 2023-05-19 11:44 | PCM.PN.REN ---
Subjective Subjective Sitting in chair. No complaints. Objective Data Objective Data Vital Signs: Vital Signs Temp Pulse Resp BP Pulse Ox O2 Del Method O2 Flow Rate 97.5 F L 55 L 16 116/64 95 Room Air 1 05/19/23 08:52 05/19/23 08:52 05/19/23 08:52 05/19/23 08:52 05/19/23 08:52 05/19/23 08:55 05/16/23 14:31 FiO2 50 05/10/23 01:00 Oxygen Flow Rate (L/min) 1 Oxygen Delivery Method Room Air Weight: 82.1 kg Body Mass Index (BMI) 26.7 Intake & Output: Intake and Output for Last 24 Hours 05/17/23 05/18/23 05/19/23 23:59 23:59 23:59 Intake Total 3335 / 3335 1340.00 / 1340.00 1000 / 1000 Output Total 2250 / 2250 1050 / 1700 1000 / 1000 Balance 1085 / 1085 290.00 / -360.00 0 / 0 Lab / Micro Data 05/18/23 06:08 05/19/23 05:26 Labs: Laboratory Results - last 24 hr 05/19/23 05:26: Sodium 147 H, Potassium 3.4 L, Chloride 118 H, Carbon Dioxide 22.0, Anion Gap 7, BUN 33 H, Creatinine 3.79 H, Estim Creat Clear Calc 15.29, Est GFR (MDRD) Af Amer 20 L, Est GFR (MDRD) Non-Af 16 L, BUN/Creatinine Ratio 8.7 L, Glucose 98, Calcium 7.9 L Micro: Microbiology 05/16/23 14:10 Stool C. difficile DNA Amplification - Final 05/08/23 15:15 Urine Catheter - Thompson Urine Culture - Final Culture exhibits no growth. 05/05/23 13:15 Blood Culture (Wb) - Anticubital Left Blood Culture - Final No growth in 5 days. 05/05/23 12:47 Blood Culture (Wb) - Anticubital Right Blood Culture - Final No growth in 5 days. 05/05/23 12:47 Urine, Catheterized Urine Culture - Final Enterococcus faecalis 05/05/23 17:50 Stool C. difficile DNA Amplification - Final 05/05/23 21:15 Stool Enteric Bacteriology - Final 05/05/23 17:50 Mucosa - Nasopharyngeal Coronavirus COVID-19 PCR - Final SARS-CoV-2 (COVID 19) 05/05/23 17:50 Mucosa - Nasopharyngeal Respiratory Panel (PCR) - Final 05/05/23 18:11 Urine Catheter - Catheter Legionella Antigen - Final 05/05/23 18:11 Urine Catheter - Catheter Streptococcus pneumoniae Antigen (M - Final Physical Exam Narrative Alert and oriented, no apparent distress S1, S2, RRR LS CTA Abdomen soft, nontender No pitting edema Assessment & Plan Assessment/Plan (1) GERTRUDE (acute kidney injury): PLAN: - Baseline creatinine appears to be around 1.6 or so. Came in with a creatinine of 5.39, cr trending down and currently 3.79mg/dL. Patient did not require any [employer]. - hypernatremia improving with D5W, sodium 147 today. Encouraged patient to try and increase solute/fluids ok for discharge per renal when cleared by primary team, d/w Dr. Drummond
--- NOTE | 2023-05-19 12:06 | CASEMGMT ---
Patient is ready for discharge to [facility]. SW completed a PASRR in [facility] system. Plan: d/c to [facility] under skilled level of care on a PASRR. Vianca GUILLERMO
[2023-05-19] MEDS: Acetaminophen 325 MG Tablet 650 MG PO (12:20)
--- NOTE | 2023-05-19 12:28 | CASEMGMT ---
Discharge Planning Discharge orders, signed med list, and transport time sent to [facility] via [facility]. [facility] will transport patient by wheelchair at 1p. Nursing, SW, patient, and his daughter updated. Elle Stevens, Discharge Planning Asst.
--- NOTE | 2023-05-19 12:46 | PHA.DC.MR.R ---
Pharmacy [place] Med Reconciliation Pharmacy Service has performed discharge medication reconciliation for this patient upon transfer to [facility]. The patient's discharge medication list was reviewed for discrepancies and discrepancies were resolved. Medications at Discharge Home Medications atorvastatin 20 mg tablet 20 mg PO DAILY cholesterol 12/25/19 aspirin 81 mg tablet,delayed release 81 mg PO DAILY Heart health 01/16/20 carbidopa 25 mg-levodopa 100 mg tablet 1.5 tab PO TID Parkinson disease 07/24/20 cholecalciferol (vitamin D3) 50 mcg (2,000 unit) capsule 2,000 unit PO DAILY Supplement 09/08/20 escitalopram oxalate 10 mg tablet 10 mg PO DAILY 09/25/20 polysaccharide iron complex 150 mg iron capsule 150 mg PO DAILYCM #30 caps 09/25/20 levothyroxine 125 mcg tablet 125 mcg PO 06/08/22 hydrocortisone 10 mg tablet See Rx Instructions PO .COMPLEX ADRENAL #270 tabs 11/18/22 acetaminophen 325 mg tablet 650 mg (2 x 325 mg) PO Q4H PRN PRN Fever, pain 1-05/24 #0 tabs 05/19/23 fluconazole 100 mg tablet 100 mg PO DAILY #0 tabs 05/19/23 menthol 0.44 %-zinc oxide 20.6 % topical ointment (Calmoseptine) 1 applic topical TID #0 grams 05/19/23 nystatin 100,000 unit/mL oral suspension 500,000 unit (5 mL) PO 4X/DAY #0 mL 05/19/23 pantoprazole 40 mg tablet,delayed release 40 mg PO BID #0 tabs 05/19/23
--- NOTE | 2023-05-30 09:55 | ST.MBS ---
Modified Barium Swallow Patient Information Study Date: 05/17/23 Study Time: 10:00 Direct Billable Minutes: 0 Total Minutes procedure & reportin
== END 2023-05-19 13:05 | DRG 177 ==
LOC: ED 14:17 → ICU 16:50 → PCU 05-08 17:56 → ICU 05-09 11:28 → PCU 05-13 14:28
PROVIDERS: Family Medicine; Hospitalist; Internal Medicine; Internal Medicine Critical Care Medicine; Internal Medicine Gastroenterology; Nurse Practitioner Adult Health; Admitting Provider Family Medicine; Emergency Provider Emergency Medicine; PCP Family Medicine; Visit Provider Internal Medicine
PROC: 0DJ08ZZ Inspection of Upper Intestinal Tract, Via Natural or Artificial Opening Endoscopic (ICD-10-PCS; CPT 43235; principal; 2023-05-14 07:30)
DX: U07.1 COVID-19 (principal); J96.01 Acute respiratory failure with hypoxia; N17.0 Acute kidney failure with tubular necrosis; J12.82 Pneumonia due to coronavirus disease 2019; G93.41 Metabolic encephalopathy; K25.4 Chronic or unspecified gastric ulcer with hemorrhage; R57.9 Shock, unspecified; E27.49 Other adrenocortical insufficiency; B37.81 Candidal esophagitis; M62.82 Rhabdomyolysis; I5A Non-ischemic myocardial injury (non-traumatic); I24.89 Other forms of acute ischemic heart disease; E87.20 Acidosis, unspecified; N18.32 Chronic kidney disease, stage 3b; I12.9 Hypertensive chronic kidney disease with stage 1 through stage 4 chronic kidney disease, or unspecified chronic kidney disease; E03.8 Other specified hypothyroidism; D63.1 Anemia in chronic kidney disease; F32.A Depression, unspecified; K22.2 Esophageal obstruction; I25.10 Atherosclerotic heart disease of native coronary artery without angina pectoris; E78.5 Hyperlipidemia, unspecified; K44.9 Diaphragmatic hernia without obstruction or gangrene; K29.80 Duodenitis without bleeding; D50.9 Iron deficiency anemia, unspecified; F41.9 Anxiety disorder, unspecified; G47.33 Obstructive sleep apnea (adult) (pediatric); I25.2 Old myocardial infarction; G20.A1 Parkinson's disease without dyskinesia, without mention of fluctuations; N40.0 Benign prostatic hyperplasia without lower urinary tract symptoms; Z66 Do not resuscitate; Z95.5 Presence of coronary angioplasty implant and graft; Z90.49 Acquired absence of other specified parts of digestive tract; Z79.82 Long term (current) use of aspirin; Z79.899 Other long term (current) drug therapy; Z86.79 Personal history of other diseases of the circulatory system
CPT/HCPCS: 36415; 36556; 36600; 70450; 70551; 71045; 72125; 73502; 74230; 76770; 80048; 80053; 80061; 80202; 81001; 82436; 82550; 82570; 82728; 82803; 82962; 83036; 83605; 83615; 83690; 83735; 83880; 83935; 84100; 84133; 84145; 84300; 84439; 84443; 84481; 84484; 85025; 85379; 85610; 85730; 86140; 87040; 87077; 87086; 87088; 87186; 87449; 87493; 87506; 87633; 87635; 87641; 88305; 88312; 88342; 92523; 92526; 92610; 92611; 93005; 93306; 93880; 94640; 94668; 94762; 97110; 97162; 97166; 97530; 97535; 97802; 97803; 99285; J7030; J7040; J7050; J7120; A4216; C1751; C1769; J0295; J1940; J2405; J2916; J7799

== ENCOUNTER → 2023-06-02 | Outpatient (CLI) | payer MEDICARE, SELFPAY ==
--- NOTE | 2023-06-02 13:07 | SP.MBSS_ITS ---
Modified Barium Swallow Patient Information Study Date: 06/02/23 Study Time: 13:00 Direct Billable Minutes: 113 Total Minutes procedure & reportin Diagnosis: Parkinson's disease (G20), GERD (K21.9) Referring Physician: Juju Moses NP Reason for Referral: Objectively assess swallow function, assess risk for aspiration, and determine recommendations for least restrictive diet textures and compensatory strategies to improve safety of swallow. 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 Recent hospitalization at [facility] beginning on 05/05/23 after being found on the floor at home, prompting an EMS call. Patient was hypoxic and hypotensive. He was placed on a nonrebreather with transition to the ED for evaluation. He was admitted to the hospital and managed for COVID-19 PNA, hypoxemia, and shock amongst other problems. He was referred for ST to assess swallow function. He was initially placed on puree textures / thin liquids. VETERINARIAN EPIDEMIOLOGIST made the patient NPO at bedside 05/10/2023 due to poor diet tolerance and recommended MBSS to further assess aspiration risk. Per family, the patient has had swallowing difficulty since 2019 when he had surgery on his pituitary gland. First MBSS completed on 05/11/2023 and the patient was recommended for Moist purees / thin liquids with STRICT aspiration precautions, 1:1 Direct supervision, and GI consult. EGD followed and the patient underwent dilation. 05/15/23 the patient had increased coughing with oral intake and had decline in respiratory status, RN made pt NPO. VETERINARIAN EPIDEMIOLOGIST reassessed at bedside with downgrade to puree / honey/moderately thick liquids and plans for MBSS same day to reassess swallow function. 05/17/2023 MBSS recommended Moist Puree Textures and Honey/Moderately Thick Liquids, meds crushed in applesauce, stop meal if fatiguing and/or increased s/s of aspiration, Small Bites, Small Sips, Slow Rate, Multiple Swallows (double swallows on each bite/sip), Alternate bites/solids and sips/liquids, Sitting upright and Remain sitting upright for 30 minutes after PO intake; 1:1 Close Supervision. Patient was discharged to SNF from hospital and is now recommended for repeat MBSS to consider him for diet advancement. EGD 05/14/2023 Impression: Esophageal plaques were found, consistent with candidiasis. Biopsied. Benign-appearing esophageal stenosis. Dilated. Medium- sized hiatal hernia. A medium amount of food (residue) in the stomach. Oozing gastric ulcer with pigmented material. Treated with a heater probe. Biopsied. D uodenitis. Current Diet Ordered: Puree textures / Honey Thick liquids Dentition: Natural Teeth and Decay Mental Status: Impaired (Memory impairment per PMH) Respiratory Status: Oxygenating on Room Air Penetration-Aspiration Scale Penetration-Aspiration Scale: OBJECTIVE ASSESSMENT OF SWALLOW FUNCTION (QUANTITATIVE ? PER TRIAL): PENETRATION / ASPIRATION SCALE (MILLS): 1 = does not enter airway 2 = enters airway/above vocal folds/ejected 3 = enters airway/above vocal folds/not ejected 4 = enters airway/contacts vocal folds/ejected 5 = enters airway/contacts vocal folds/not ejected 6 = enters airway/below vocal folds/ejected 7 = enters airway/below vocal folds/not ejected despite effort 8 = enters airway/below vocal folds/no effort VIDEOFLOROSCOPIC SCALE SCORE (MILLS): Grade I = aspiration of material that has penetrated into the laryngeal vestibule, intact cough reflex Grade II = aspiration < 10 % of the bolus, intact cough reflex Grade III = aspiration of < 10 % of the bolus, reduced cough reflex or aspiration of > 10 % of the bolus, intact cough reflex Grade IV = aspiration of > 10 % of the bolus, reduced cough reflex Penetration-Aspiration Scale Score Thin Liquid via teaspoon: Result: 5= enters airways/contacts vocal folds/not ejected (Laryngeal penetration of pharyngeal residue. Cued cough and re-swallow after completion of trial, which was somewhat effective.) Thin Liquid via teaspoon Effortful swallow: Result: 5= enters airways/contacts vocal folds/not ejected Thin Liquid via teaspoon with Chin Tuck and Double Swallow: Result: 8= enters airway/below vocal folds/no effort (Cued cough and re-swallow, which was somewhat effective.) [place] Thick Liquid via small single sip: cup: Result: 3= enters airways/above vocal folds/not ejected Honey Thick Liquid via teaspoon: Result: 2= enter airway/above vocal folds/ejected Pudding via Teaspoon with Esophageal Screen: Result: 2= enter airway/above vocal folds/ejected (SILENT post prandial aspiration likely of pharyngeal residues and residues remaining in the laryngeal vestibule from previous trials.) / Cookie: Result: 1= does not enter airway [place] Thick Liquid via large single sip: cup: Result: 5= enters airways/contacts vocal folds/not ejected (Cued cough and re-swallow, which was somewhat effective) [place] Thick Liquid via small single sip: cup - 10cc: Result: 1= does not enter airway [place] Thick Liquid via small single sip: cup - 10cc Trial 2: Result: 1= does not enter airway Comment: Esophageal screen completed after the study with retention of barium contrast in the mid to lower esophagus. Oral Phase Labial Seal: No Labial Escape Tongue Control During Bolus Hold: Posterior escape of greater than half of bolus Bolus Preparation/Mastication: Disorganized chewing/mashing with solid pieces of bolus unchewed Bolus Transport/Lingual Motion: Repetitive/disorganized tongue motion Oral Residue: Residue collection on oral structures Pharyngeal Phase Initiation of Pharyngeal Swallow: Bolus head in pyriforms Soft Palate Elevation: Trace column of contrast/air between soft palate and pharyngeal wall Laryngeal Elevation: Partial superior movement thyroid cart/partial apprx aryt- epig petiole Anterior Hyoid Excursion: Partial anterior movement Epiglottic Movement: Partial inversion Laryngeal Vestibule Closure at Height of Swallow: Incomplete; narrow column of air/contrast in laryngeal vestibule Pharyngeal Stripping Wave: Present - diminished Pharyngoesophageal Segment Opening: Parital distension and partial duration; parital obstruction of flow Tongue Base Retraction: Wide column of contrast between tongue base & post. pharyngeal wall (~50% of pudding and cookie contrast in pharynx after the first swallow with some improvement with second swallow) Pharyngeal Residue: Majority of contrast within or on pharyngeal structures Esophageal Phase Esophageal Clearance: Esophageal retention w/ retrograde flow through pharyngoesophageal seg Diagnosis/Impression Diagnosis: Moderate oropharyngeal dysphagia (R13.12) Impression: The oral phase is primarily marked by... -Premature posterior loss of thin and nectar thick liquids to the pyriforms prior to swallow onset. -Lingual pumping for A-P transport. -Mild oral residue after the swallow, which the patient independently cleared with use of second swallow as needed. -Prolonged and decreased mastication abilities with small pieces of 1/4 Adore Doone appearing un-chewed. The pharyngeal phase is primarily marked by... -Decreased airway closure due to decreased anterior hyoid excursion and laryngeal elevation. -Moderate-severe residues after the first swallow with mild-moderate pharyngeal residues after double swallow. He presented with continued deficits in tongue base retraction, pharyngeal stripping wave, and UES opening/duration. -SILENT aspiration of thin liquids by tsp with use of chin tuck. SILENT post prandial aspiration, likely of thickened liquid residues in the laryngeal vestibule and pharynx. Deep laryngeal penetration of thin by tsp, thin by tsp with effortful swallow, nectar via large cup sip with no cough reflex. Decreased bolus size and a cued cough and re-swallow was most effective in decreasing risk for aspiration with liquids. Recommendations Diet: Puree Textures and [place]-thick Liquids Comment: Cue an intermittent cough and re-swallow, Stop meal if increased s/s of aspiration due to risk for reflux aspiration. Compensatory Strategies: Small Bites, Small Sips (Consider bolus control cup [10cc] as patient took a large sip independently), Slow Rate, Multiple Swallows (At least 2 swallows on each bite/sip), Alternate bites/solids and sips/liquids, Sitting upright and Remain sitting upright for 30 minutes after PO intake Supervision: 1:1 Close Supervision Recommend Repeat Modified Barium Swallow: Yes (Repeat MBSS in 4-6 weeks after implementation of oropharyngeal exercise program) Need for Skilled Speech Therapy Services: Yes Comment: Continued monitoring of diet tolerance and respiratory status. Continued training of staff, patient, and family in recommended diet textures and aspiration precautions. Implementation of oropharyngeal exercise program, to include lingual coordination and resistance exercises, effortful swallows, Allyssa, and CTAR. Skilled meal analysis with VETERINARIAN EPIDEMIOLOGISTMisty, with mechanical soft textures to consider further diet advancement. Will recommend thorough mastication, double swallows, and alternating bites/sips with solids. Would not recommend advancement of liquids without repeat MBSS due to silent aspiration. Additional note: The patient had recent inpatient GI consultation with EGD 05/14/2023. Would strongly encourage routine follow-up with radiotelephone operator due to persisting esophageal deficits. Education Completed: 1. Described result of evaluation., 2. Pt understands evaluation & agrees with goals and treatment plan. and 7. Pt requires further education on strategies & risks. Comment: VETERINARIAN EPIDEMIOLOGIST called the patient's VETERINARIAN EPIDEMIOLOGIST, Misty, and reviewed recommendations. Education well received. Status Active ST Patient: Active Contact Information [facility] Speech Therapy:: Anuradha Richards M.A. [facility]-VETERINARIAN EPIDEMIOLOGIST Speech-Language Pathologist [facility] [address] [place] [address] [email or web address] [phone]
== END | disposition home or self-care (01) ==
LOC: RAD 13:07
PROVIDERS: PCP Family Medicine; Referring Provider Nurse Practitioner Family; Visit Provider Nurse Practitioner Family
DX: R13.10 Dysphagia, unspecified (principal)
CPT/HCPCS: 74230; 92611

== ENCOUNTER → 2023-06-13 | Outpatient (CLI) | payer MEDICARE, SELFPAY ==
[2023-06-13 17:49] LABS: Hematocrit 32.6 % (40-54); Hemoglobin 10.1 g/dL (13.0-16.5); Mean Corpuscular Hgb 30.6 pg (27.0-32.0); Mean Corpuscular Volume 98.8 fL (80-94); Mean Platelet Vol. 10.8 fl (6.2-12.0); Platelet Count 262 K/mm3 (150-450); RBC Distribution Width CV 13.9 % (11.6-14.6); RBC Distribution Width SD 50.3 fl (35.1-43.9); Reticulocyte Count 2.63 % (0.5-1.5); White Blood Count 8.5 K/mm3 (4.4-11.0)
[2023-06-13 18:12] LABS: Anion Gap 7 (5-15); BUN 21 mg/dL (7-18); BUN/Creat Ratio 10.4 RATIO (10-20); Calcium,Total 8.5 mg/dL (8.5-10.1); Chloride 103 mmol/L (98-107); Creatinine, Serum 2.02 mg/dL (0.70-1.30); EST Glomerular Filtration Rate 34 mL/min (>60); Est Glom Filt Rate - Afr Amer 41 mL/min (>60); Ferritin 1331 ng/mL (26-388); Free T3 1.4 pg/mL (2.18-3.98); Glucose 115 mg/dL (74-106); Iron 47 ug/dL (65-175); Iron Binding Capacity,Total 183 ug/dL (250-450); Potassium 4.2 mmol/L (3.5-5.1); Sodium Level 132 mmol/L (136-145); T4 Free Direct 1.07 ng/dL (0.76-1.46); Thyroid Stim Hormone (TSH) 0.28 uIU/mL (0.358-3.74)
== END | disposition home or self-care (01) ==
LOC: MFPLAB 14:56
PROVIDERS: PCP Family Medicine; Visit Provider Family Medicine
DX: D64.9 Anemia, unspecified (principal); E03.9 Hypothyroidism, unspecified
CPT/HCPCS: 36415; 80048; 82728; 83540; 83550; 84439; 84443; 84481; 85027; 85045